=== PATIENT | female | born 1955 | race Two or more races ===

== ENCOUNTER 2017-03-07 21:10 | Inpatient (IN) | payer MEDICARE ==
[2017-03-07 22:06] VITALS: BP 168/85
[2017-03-07] MEDS ORDERED: Maalox 30 mL Cup PO PRN (22:09)
[2017-03-07] MEDS ORDERED: Magnesium Hydroxide (MOM) 30 mL UDC PO PRN (22:09)
[2017-03-07] MEDS: INSULIN ASPART SLIDING SCALE 100 UNITS/ML UNIT SUBQ SCH (22:56)
[2017-03-08] MEDS: INSULIN ASPART SLIDING SCALE 100 UNITS/ML UNIT SUBQ SCH ×4 (06:44→21:36)
[2017-03-08] MEDS: Multivitamin Tab PO SCH (08:33)
[2017-03-08 11:04] LABS: % BASOPHILS 1.3 % (0.0-2.0); % EOSINOPHILS 1.5 % (0.0-5.0); % MONOCYTES 8.3 % (2.0-10.0); % NEUTROPHILS 75.9 % (40.0-80.0); HEMATOCRIT 35.3 % (35.0-45.0); MEAN CELL VOLUME 87.3 fl (81-100); MEAN CORPUSCULAR HEMOGLOBIN 29.8 pg (27.0-31.0); MEAN CORPUSCULAR HGB CONC 34.1 pg (28.0-36.0); MEAN PLATELET VOLUME 5.9 fl; NEUTROPHILE ABSOLUTE 4.1 Th/cmm (1.8-8.0); PLATELET COUNT 242 Th/cmm (150-400); RED BLOOD COUNT 4.04 Mil/cmm (3.80-5.10); RED CELL DISTRIBUTION WIDTH 14.4 % (11.5-20.0); WHITE BLOOD COUNT 5.5 Th/cmm (4.8-10.8)
--- NOTE | 2017-03-08 11:28 | Psychosocial Evaluation ---
DATE OF SERVICE: 03/08/2017 CHIEF COMPLAINT: Refusing to eat or drink. HISTORY OF PRESENT ILLNESS: The patient is a 61-year-old female who lives at home with her mother. The patient has been depressed and has been having thoughts of suicide and was planning to overdose on pills. The patient was seen in [facility] and then transferred to [facility]. Chart reviewed and the patient interviewed and discussed the patient's condition with the staff and reviewed records and labs. The patient said that she has been feeling depressed because of increased pain. The patient has been complaining of severe back pain. She has been taking different pain medications. The patient said that she has been feeling hopeless and helpless. She also has been interacting minimally with others. The patient started to have thoughts of suicide and started to talk about her desire to overdose on pills. PAST PSYCHIATRIC HISTORY: The patient has history of depression and the patient was taking Zoloft. The patient denies any history of psych hospitalization. PAST MEDICAL HISTORY: The patient said that she has chronic back pain. She also has a pacemaker, diabetes mellitus, and traumatic brain injury. CHEMICAL DEPENDENCY HISTORY: The patient denies. FAMILY PSYCHIATRIC HISTORY: The patient denies. ALLERGIES: No known allergies. MENTAL STATUS EXAMINATION: The patient appears her stated age. Anxious. In a depressed mood. Thought processes are circumstantial and tangential, but no flight of ideas. The patient seems to be suspicious and paranoid. The patient is alert and oriented to the situation, place, and person. Intact immediate, recent, and remote memories. Fair insight. Judgment is questionable. She seems to be of average intelligence based on her verbal ability. ASSESSMENT: PRIMARY DIAGNOSIS: Major depression, severe, recurrent, with psychotic features. TREATMENT PLAN: We will monitor the patient's behavior and condition closely. We will start individual, as well as milieu psychotherapy. We will start the patient on Cymbalta and we discontinue Zoloft. Hopefully Cymbalta will help with the pain. Also, we will work on her pain and Dr. Stroud to evaluate her pain condition and her . ESTIMATED LENGTH OF STAY: 7-10 days. THE PATIENT'S STRENGTHS AND WEAKNESSES: The patient's strength is not clear at this time except that she has support from her mother. Weaknesses are her ineffective coping and her severe level of depression. AFTER DISCHARGE PLAN: The patient will return to live with her mother most probably unless some rehabilitation will be needed. Outpatient treatment and followup will continue as an outpatient. CRITERIA FOR DISCHARGE: The patient will not be psychotic or suicidal and will stabilize on psychotropic medications and will establish outpatient treatment plans. JOB# [id number]
[2017-03-08 11:34] LABS: ALB/GLOB RATIO 1.4 (1.0-1.8); ALKALINE PHOSPHATASE 50 U/L (34-104); BILIRUBIN,TOTAL 0.6 mg/dL (0.3-1.0); BUN - UREA NITROGEN 7 mg/dL (7-25); CALCIUM SERUM 9.3 mg/dL (8.6-10.3); CARBON DIOXIDE 24.5 mEq/L (21.0-31.0); CHLORIDE 96 mEq/L (98-107); CREATININE - SERUM 0.7 mg/dL (0.6-1.2); GLUCOSE 157 mg/dL (70-105); POTASSIUM SERUM 3.5 mEq/L (3.5-5.1); SGOT 15 U/L (13-39); SGPT/ALT 15 U/L (7-52); SODIUM SERUM 134 mEq/L (136-145)
--- NOTE | 2017-03-08 16:09 | History & Physical ---
ADMIT DATE: 03/08/2017 HISTORY OF PRESENT ILLNESS: This is a 61-year-old female who was admitted from [facility]. The patient has a past medical history of traumatic brain injury, type 2 diabetes, depression, diabetic neuropathy. The patient was brought here to [facility] for depression. PAST MEDICAL HISTORY: Traumatic brain injury with resultant cognitive decline and memory loss, previous episodes of UTI, diabetes, depression, diabetic neuropathy. SOCIAL HISTORY: Denies any alcohol, tobacco or drugs. FAMILY HISTORY: Noncontributory. ALLERGIES: No drug allergies. MEDICATIONS: Please see medication reconciliation sheet. REVIEW OF SYSTEMS: GENERAL: Denies any fevers or chills. CARDIOVASCULAR: Denies chest pain. RESPIRATORY: Denies any shortness of breath. GASTROINTESTINAL: Denies nausea, vomiting. GENITOURINARY: Denies any dysuria. All other systems are reviewed by me and are negative. PHYSICAL EXAMINATION: GENERAL: The patient is well developed, well nourished, no acute distress. VITAL SIGNS: Temperature 99.0, heart rate ____, blood pressure, 101/66, respirations 20, O2 97%. HEENT: Head; normocephalic, atraumatic. NECK: Supple. No mass. LUNGS: Clear bilaterally. HEART: Regular rhythm. ABDOMEN: Soft and nontender. ASSESSMENT: 1. Psychosis. 2. History of traumatic brain injury. 3. Diabetes. 4. Depression. 5. Diabetic neuropathy. PLAN: We will do Accu-Cheks a.c. and at bedtime. We will monitor the patient's glucose level. We will continue to monitor the patient. JOB# [id number]
[2017-03-09] MEDS: INSULIN ASPART SLIDING SCALE 100 UNITS/ML UNIT SUBQ SCH ×4 (06:31→20:36)
[2017-03-09] MEDS: Pantoprazole 40 mg EC Tab PO SCH (06:45)
--- NOTE | 2017-03-09 08:18 | Diagnostic Imaging Report ---
Portable chest x-ray HISTORY: Cough The overall heart size is normal. Cardiac pacemaker lead wires project over the right atrium and right ventricle. No focal pulmonary processes. Surgical hardware is seen within the thoracic spine. There are changes suggesting free air beneath the diaphragm. Clinical correlation is needed. If symptomatic, a CT scan would provide additional assessment and evaluation. There appears to be residual contrast within nondilated large bowel. Surgical clips are seen in the right upper quadrant of the abdomen consistent with prior cholecystectomy. IMPRESSION: 1. Question free intraperitoneal/subdiaphragmatic air. In the absence of recent surgery and presence of abdominal symptoms, a CT scan would provide additional assessment. 2. No focal pulmonary processes 3. Cardiac pacemaker placement 4. Surgical changes as noted above Abnormal findings were communicated to the radiology department 03/09/2017 (8:10 AM).
--- NOTE | 2017-03-09 08:28 | General Progress Note ---
Subjective - Review of Systems Events since last encounter: no distress Objective - Results Result Diagrams: 03/08/17 11:00 03/08/17 11:00 Recent Labs: Laboratory Last Values WBC 5.5 Th/cmm (4.8-10.8) 03/08/17 11:00 RBC 4.04 Mil/cmm (3.80-5.10) 03/08/17 11:00 Hgb 12.0 gm/dL (11.7-15.5) 03/08/17 11:00 Hct 35.3 % (35.0-45.0) 03/08/17 11:00 MCV 87.3 fl (81-100) 03/08/17 11:00 MCH 29.8 pg (27.0-31.0) 03/08/17 11:00 MCHC Differential 34.1 pg (28.0-36.0) 03/08/17 11:00 RDW 14.4 % (11.5-20.0) 03/08/17 11:00 Plt Count 242 Th/cmm (150-400) 03/08/17 11:00 MPV 5.9 fl 03/08/17 11:00 Neutrophils % 75.9 % (40.0-80.0) 03/08/17 11:00 Lymphocytes % 13.0 % (20.0-50.0) L 03/08/17 11:00 Monocytes % 8.3 % (2.0-10.0) 03/08/17 11:00 Eosinophils % 1.5 % (0.0-5.0) 03/08/17 11:00 Basophils % 1.3 % (0.0-2.0) 03/08/17 11:00 Sodium 134 mEq/L (136-145) L 03/08/17 11:00 Potassium 3.5 mEq/L (3.5-5.1) 03/08/17 11:00 Chloride 96 mEq/L (98-107) L 03/08/17 11:00 Carbon Dioxide 24.5 mEq/L (21.0-31.0) 03/08/17 11:00 Anion Gap 17.0 (7.0-16.0) H 03/08/17 11:00 BUN 7 mg/dL (7-25) 03/08/17 11:00 Creatinine 0.7 mg/dL (0.6-1.2) 03/08/17 11:00 Est GFR ( Amer) > 60.0 ml/min (>90) 03/08/17 11:00 Est GFR (Non-Af Amer) > 60.0 ml/min 03/08/17 11:00 BUN/Creatinine Ratio 10.0 03/08/17 11:00 Glucose 157 mg/dL (70-105) H 03/08/17 11:00 POC Glucose 114 MG/DL (70 - 105) H 03/09/17 06:21 Calcium 9.3 mg/dL (8.6-10.3) 03/08/17 11:00 Total Bilirubin 0.6 mg/dL (0.3-1.0) 03/08/17 11:00 AST 15 U/L (13-39) 03/08/17 11:00 ALT 15 U/L (7-52) 03/08/17 11:00 Alkaline Phosphatase 50 U/L (34-104) 03/08/17 11:00 Total Protein 5.9 gm/dL (6.0-8.3) L 03/08/17 11:00 Albumin 3.4 gm/dL (3.7-5.3) L 03/08/17 11:00 Globulin 2.5 gm/dL 03/08/17 11:00 Albumin/Globulin Ratio 1.4 (1.0-1.8) 03/08/17 11:00 - Physical Exam Vitals and I&O: Vital Signs Temp 98.3 F 03/09/17 07:04 Pulse 60 03/09/17 07:04 Resp 18 03/09/17 07:04 BP 101/56 03/09/17 07:04 Pulse Ox 97 03/09/17 07:04 Intake & Output 03/08/17 03/09/17 03/09/17 18:59 06:59 18:59 Intake Total 720 120 0 Balance 720 120 0 Intake: Oral 720 120 0 Other: # Voids 4 3 3 # Bowel Movements 0 0 0 Active Medications: Current Medications Acetaminophen (Tylenol) 650 mg PO Q4HR PRN PRN Reason: Mild Pain / Temp above 100 Stop: 05/06/17 22:08 Al Hydrox/Mg Hydrox/Simethicone (Maalox) 30 ml PO Q4HR PRN PRN Reason: GI DISTRESS Stop: 05/06/17 22:08 Carvedilol (Coreg) 12.5 mg PO BID DEVAUGHN Stop: 05/07/17 16:59 Last Admin: 03/08/17 16:30 Dose: 12.5 mg Duloxetine HCl (Cymbalta) 30 mg PO DAILY [facility] PRN Reason: Protocol Stop: 05/07/17 08:59 Last Admin: 03/08/17 15:54 Dose: Not Given Enoxaparin Sodium (Lovenox) 40 mg SUBQ DAILY [facility] Stop: 05/08/17 16:59 Ergocalciferol (Vitamin D) 50,000 iu PO We DEVAUGHN Stop: 05/08/17 09:59 Gabapentin (Neurontin) 800 mg PO TID [facility]N Stop: 05/07/17 20:59 Last Admin: 03/08/17 21:35 Dose: Not Given Insulin Aspart (Novolog Insulin Sliding Scale) 0 units SUBQ ACHS [facility]AUGHN PRN Reason: Protocol Stop: 05/06/17 22:15 Last Admin: 03/09/17 06:31 Dose: Not Given Lorazepam (Ativan) 0.5 mg PO Q4HR PRN; Protocol PRN Reason: Anxiety Stop: 04/06/17 22:08 Last Admin: 03/08/17 08:33 Dose: 0.5 mg Magnesium Hydroxide (Milk Of Magnesia) 30 ml PO HS PRN PRN Reason: Constipation Mirtazapine (Remeron) 15 mg PO HS [facility]N PRN Reason: Protocol Stop: 05/07/17 20:59 Last Admin: 03/08/17 21:35 Dose: Not Given Multivitamins/Vitamin C (Theragran) 1 tab PO DAILY DEVAUGHN Stop: 05/07/17 08:59 Last Admin: 03/08/17 08:33 Dose: 1 tab Pantoprazole Sodium (Protonix) 40 mg PO QDAC [facility]N Stop: 05/08/17 07:29 Last Admin: 03/09/17 06:45 Dose: Not Given Quetiapine Fumarate (Seroquel) 25 mg PO HS DEVAUGHN PRN Reason: Protocol Stop: 05/07/17 20:59 Last Admin: 03/08/17 21:36 Dose: Not Given Sertraline HCl (Zoloft) 25 mg PO DAILY [facility]AUGHN PRN Reason: Protocol Stop: 05/08/17 08:59 Tramadol HCl (Ultram) 50 mg PO Q6HR PRN PRN Reason: Moderate pain Stop: 05/06/17 22:24 Last Admin: 03/08/17 08:33 Dose: 50 mg Tramadol HCl (Ultram) 50 mg PO Q4H PRN PRN Reason: Pain (Moderate) Stop: 05/07/17 15:17 Last Admin: 03/08/17 16:36 Dose: 50 mg Trazodone HCl (Desyrel) 100 mg PO HS DEVAUGHN Stop: 05/07/17 20:59 Last Admin: 03/08/17 21:35 Dose: Not Given Zolpidem Tartrate (Ambien) 5 mg PO HS PRN PRN Reason: Insomnia Stop: 05/06/17 22:08
[2017-03-09] MEDS: Multivitamin Tab PO SCH (09:26)
--- NOTE | 2017-03-09 10:16 | Progress Notes ---
DATE: 03/09/2017 SUBJECTIVE: Chart reviewed and the patient interviewed. Also discussed the patient's condition with the staff and reviewed records and labs. The patient is selectively mute and she is withdrawn and guarded. The patient also is not answering much of the questions and she is still severely depressed. The patient also is reporting to staff her desire to . She is withdrawn and she is feeling hopeless. Otherwise, the patient tends to isolate herself. ASSESSMENT: The patient is still depressed and is still high risk suicide. TREATMENT PLAN: We will continue monitoring her behavior and her condition closely. Also, yesterday, the patient started on Cymbalta 30 mg every day. We will continue same dose and we will continue to work on her ineffective coping and followup. [facility]# [id number]
--- NOTE | 2017-03-09 16:14 | Consultation ---
DATE OF CONSULTATION: 03/09/2017 REFERRING PHYSICIAN: Dr. Stroud. REASON FOR CONSULTATION: Abnormal chest x-ray. Thank you for referring this patient to me. HISTORY OF PRESENT ILLNESS: This is a 61-year-old female admitted from [facility] for depression and suicidal ideation. The patient has had traumatic brain injury. Additional comorbidities include UTI, diabetes, depression, diabetic nephropathy, pacemaker placement. LABORATORY STUDIES: CBC and chemistry are normal. Chest x-ray showed subdiaphragmatic air. This is minimal amount. PHYSICAL EXAMINATION: GENERAL: The patient is awake, but poorly cooperative. ABDOMEN: Flat and soft. There is minimal tenderness present. There are scars from what appears to be a recent laparoscopic cholecystectomy. The records of transfer from [facility]; however, is complete and we will call the hospital to furnish , documentation that, some operation was done on this patient in the last couple of weeks. Four healing trocar holes are noted in the right upper quadrant. JOB# [id number] [facility]ITAL[facility]
[2017-03-09] MEDS: Enoxaparin 40 mg/0.4 mL 0.4mL Syr SUBQ SCH (16:39)
--- NOTE | 2017-03-10 05:04 | Admit Criteria Form ---
Admit Criteria Forms - Admit Criteria Diagnosis: PSYCHIATRIC DISORDERS (Place 'X' for any and all applicable criteria): Ongoing inpatient care may be needed for 1 or more of the following(1)(2)(3)(4)( 6)(7)(8): [ ]I. Danger to self or others not manageable at lower level of care. [ ]II. Grave disability (eg, inability to perform self care necessary at lower level of care) [ ]III. Agitation or inappropriate behavior interfering with care for primary condition (eg, attempting to discontinue lines or drains prematurely, unable to cooperate with respiratory care) [X ]IV. Severe disability or disorder indicated by ALL of the following: [X ]a) Severe behavioral health disorder-related symptoms or condition indicated by 1 or more of the following: [ ]i) Severe problem with cognition, memory, judgment, or impulse control [X ]ii) Severe clinical manifestations (eg, hallucinations , delusions, other acute psychotic symptoms, mirna, extreme agitation or anxiety) [X ]b) Patient management at lower level of care is not feasible until acute intervention or modification is initiated. Extended stay beyond goal length of stay for the primary condition may be needed until ALLof the following are present(1)(2)(3)(4)(7)48)(23): [ ]a) Danger to self or others is absent or manageable at lower level of care [ ]b) Behavior crisis management, including physical or chemical restraints, is required and is not available at a lower level of care. [ ]c) Behavioral symptoms (e.g., agitation, somnolence, inappropriate behavior) are present, and are not manageable at a lower level of care. [ ]d) Patient cannot understand follow-up treatment and crisis plan. [ ]e) Provider and supports are sufficiently available at lower level of care. [ ]f) Patient can participate (e.g., verify absence of plan for harm) and is in needed of monitoring. The original [facility] content created by [facility] has been revised. The portions of the content which have been revised are identified through the use of italic text or in bold, and [facility] has neither reviewed nor approved the modified material. All other unmodified content is copyright [facility]. Please see references footnoted in the original [facility] edition 2017 Admit Criteria Met?: Yes
[2017-03-10] MEDS: INSULIN ASPART SLIDING SCALE 100 UNITS/ML UNIT SUBQ SCH ×4 (06:33→20:25)
[2017-03-10] MEDS: Pantoprazole 40 mg EC Tab PO SCH (06:46)
--- NOTE | 2017-03-10 08:03 | General Progress Note ---
Subjective - Review of Systems Events since last encounter: patient admitted with depression with si awake ,alert Objective - Results Result Diagrams: 03/08/17 11:00 03/08/17 11:00 Recent Labs: Laboratory Last Values WBC 5.5 Th/cmm (4.8-10.8) 03/08/17 11:00 RBC 4.04 Mil/cmm (3.80-5.10) 03/08/17 11:00 Hgb 12.0 gm/dL (11.7-15.5) 03/08/17 11:00 Hct 35.3 % (35.0-45.0) 03/08/17 11:00 MCV 87.3 fl (81-100) 03/08/17 11:00 MCH 29.8 pg (27.0-31.0) 03/08/17 11:00 MCHC Differential 34.1 pg (28.0-36.0) 03/08/17 11:00 RDW 14.4 % (11.5-20.0) 03/08/17 11:00 Plt Count 242 Th/cmm (150-400) 03/08/17 11:00 MPV 5.9 fl 03/08/17 11:00 Neutrophils % 75.9 % (40.0-80.0) 03/08/17 11:00 Lymphocytes % 13.0 % (20.0-50.0) L 03/08/17 11:00 Monocytes % 8.3 % (2.0-10.0) 03/08/17 11:00 Eosinophils % 1.5 % (0.0-5.0) 03/08/17 11:00 Basophils % 1.3 % (0.0-2.0) 03/08/17 11:00 Sodium 134 mEq/L (136-145) L 03/08/17 11:00 Potassium 3.5 mEq/L (3.5-5.1) 03/08/17 11:00 Chloride 96 mEq/L (98-107) L 03/08/17 11:00 Carbon Dioxide 24.5 mEq/L (21.0-31.0) 03/08/17 11:00 Anion Gap 17.0 (7.0-16.0) H 03/08/17 11:00 BUN 7 mg/dL (7-25) 03/08/17 11:00 Creatinine 0.7 mg/dL (0.6-1.2) 03/08/17 11:00 Est GFR ( Amer) > 60.0 ml/min (>90) 03/08/17 11:00 Est GFR (Non-Af Amer) > 60.0 ml/min 03/08/17 11:00 BUN/Creatinine Ratio 10.0 03/08/17 11:00 Glucose 157 mg/dL (70-105) H 03/08/17 11:00 POC Glucose 104 MG/DL (70 - 105) 03/10/17 06:05 Calcium 9.3 mg/dL (8.6-10.3) 03/08/17 11:00 Total Bilirubin 0.6 mg/dL (0.3-1.0) 03/08/17 11:00 AST 15 U/L (13-39) 03/08/17 11:00 ALT 15 U/L (7-52) 03/08/17 11:00 Alkaline Phosphatase 50 U/L (34-104) 03/08/17 11:00 Total Protein 5.9 gm/dL (6.0-8.3) L 03/08/17 11:00 Albumin 3.4 gm/dL (3.7-5.3) L 03/08/17 11:00 Globulin 2.5 gm/dL 03/08/17 11:00 Albumin/Globulin Ratio 1.4 (1.0-1.8) 03/08/17 11:00 - Physical Exam Vitals and I&O: Vital Signs Temp 98 F 03/09/17 20:00 Pulse 50 03/09/17 20:00 Resp 18 03/09/17 20:00 BP 138/77 03/09/17 20:00 Pulse Ox 98 03/09/17 20:00 Intake & Output 03/09/17 03/10/17 03/10/17 18:59 06:59 18:59 Intake Total 800 Balance 800 Intake: Oral 800 Other: # Voids 3 # Bowel Movements 0 Active Medications: Current Medications Acetaminophen (Tylenol) 650 mg PO Q4HR PRN PRN Reason: Mild Pain / Temp above 100 Stop: 05/06/17 22:08 Last Admin: 03/09/17 21:15 Dose: 650 mg Al Hydrox/Mg Hydrox/Simethicone (Maalox) 30 ml PO Q4HR PRN PRN Reason: GI DISTRESS Stop: 05/06/17 22:08 Carvedilol (Coreg) 12.5 mg PO BID [facility] Stop: 05/07/17 16:59 Last Admin: 03/09/17 16:41 Dose: 12.5 mg Duloxetine HCl (Cymbalta) 60 mg PO DAILY DEVAUGHN PRN Reason: Protocol Stop: 05/07/17 08:59 Enoxaparin Sodium (Lovenox) 40 mg SUBQ DAILY DEVAUGHN Stop: 05/08/17 16:59 Last Admin: 03/09/17 16:39 Dose: 40 mg Ergocalciferol (Vitamin D) 50,000 iu PO We [facility] Stop: 05/08/17 09:59 Last Admin: 03/09/17 09:27 Dose: Not Given Gabapentin (Neurontin) 800 mg PO TID DEVAUGHN Stop: 05/07/17 20:59 Last Admin: 03/09/17 21:16 Dose: 800 mg Insulin Aspart (Novolog Insulin Sliding Scale) 0 units SUBQ ACHS DEVAUGHN PRN Reason: Protocol Stop: 05/06/17 22:15 Last Admin: 03/10/17 06:33 Dose: Not Given Lorazepam (Ativan) 0.5 mg PO Q4HR PRN; Protocol PRN Reason: Anxiety Stop: 04/06/17 22:08 Last Admin: 03/08/17 08:33 Dose: 0.5 mg Magnesium Hydroxide (Milk Of Magnesia) 30 ml PO HS PRN PRN Reason: Constipation Mirtazapine (Remeron) 15 mg PO HS [facility]AUGHN PRN Reason: Protocol Stop: 05/07/17 20:59 Last Admin: 03/09/17 21:16 Dose: 15 mg Multivitamins/Vitamin C (Theragran) 1 tab PO DAILY DEVAUGHN Stop: 05/07/17 08:59 Last Admin: 03/09/17 09:26 Dose: Not Given Pantoprazole Sodium (Protonix) 40 mg PO QDAC [facility] Stop: 05/08/17 07:29 Last Admin: 03/10/17 06:46 Dose: 40 mg Tramadol HCl (Ultram) 50 mg PO Q6HR PRN PRN Reason: Moderate pain Stop: 05/06/17 22:24 Last Admin: 03/09/17 17:34 Dose: 50 mg Tramadol HCl (Ultram) 50 mg PO Q4H PRN PRN Reason: Pain (Moderate) Stop: 05/07/17 15:17 Last Admin: 03/10/17 00:14 Dose: 50 mg Trazodone HCl (Desyrel) 100 mg PO HS [facility]AUGHN Stop: 05/07/17 20:59 Last Admin: 03/09/17 21:17 Dose: 100 mg Zolpidem Tartrate (Ambien) 5 mg PO HS PRN PRN Reason: Insomnia Stop: 05/06/17 22:08 General: No acute distress HEENT: Atraumatic Cardiovascular: Regular rate, Normal S1, Normal S2 Assessment/Plan - Plan Plan: as per psych will monitor cpm
[2017-03-10] MEDS: Multivitamin Tab PO SCH (09:58)
[2017-03-10] MEDS: Enoxaparin 40 mg/0.4 mL 0.4mL Syr SUBQ SCH (10:00)
--- NOTE | 2017-03-10 11:19 | Progress Notes ---
DATE: 03/10/2017 SUBJECTIVE: Chart reviewed and the patient interviewed. Also discussed the patient's condition with the staff and reviewed records and labs. The patient is still guarded and she is still in a depressed mood. The patient also is interacting minimally with peers and with others. The patient also still wants to be left alone and still feels hopeless and helpless. She also isolative and interacting minimally guarded. Otherwise, the patient continued to take Cymbalta with no side effects of Cymbalta. ASSESSMENT: The patient is still depressed and high risk suicide. TREATMENT PLAN: We will continue monitoring her behavior and her condition closely. Also, we will increase Cymbalta to 60 mg everyday and we will continue to follow up closely. Also, will work with family service caseworker in regard to any possibility of placement after her discharge. Also, we will work on her ineffective coping and her poor coping skills. JOB# [id number]
[2017-03-11] MEDS: INSULIN ASPART SLIDING SCALE 100 UNITS/ML UNIT SUBQ SCH ×4 (06:37→20:57)
[2017-03-11] MEDS: Pantoprazole 40 mg EC Tab PO SCH (07:04)
--- NOTE | 2017-03-11 07:55 | General Progress Note ---
Subjective - Review of Systems Service Date: 03/11/17 Events since last encounter: patient did undergo lap cholecystectomy several days ago Objective - Results Result Diagrams: 03/08/17 11:00 03/08/17 11:00 Recent Labs: Laboratory Last Values WBC 5.5 Th/cmm (4.8-10.8) 03/08/17 11:00 RBC 4.04 Mil/cmm (3.80-5.10) 03/08/17 11:00 Hgb 12.0 gm/dL (11.7-15.5) 03/08/17 11:00 Hct 35.3 % (35.0-45.0) 03/08/17 11:00 MCV 87.3 fl (81-100) 03/08/17 11:00 MCH 29.8 pg (27.0-31.0) 03/08/17 11:00 MCHC Differential 34.1 pg (28.0-36.0) 03/08/17 11:00 RDW 14.4 % (11.5-20.0) 03/08/17 11:00 Plt Count 242 Th/cmm (150-400) 03/08/17 11:00 MPV 5.9 fl 03/08/17 11:00 Neutrophils % 75.9 % (40.0-80.0) 03/08/17 11:00 Lymphocytes % 13.0 % (20.0-50.0) L 03/08/17 11:00 Monocytes % 8.3 % (2.0-10.0) 03/08/17 11:00 Eosinophils % 1.5 % (0.0-5.0) 03/08/17 11:00 Basophils % 1.3 % (0.0-2.0) 03/08/17 11:00 Sodium 134 mEq/L (136-145) L 03/08/17 11:00 Potassium 3.5 mEq/L (3.5-5.1) 03/08/17 11:00 Chloride 96 mEq/L (98-107) L 03/08/17 11:00 Carbon Dioxide 24.5 mEq/L (21.0-31.0) 03/08/17 11:00 Anion Gap 17.0 (7.0-16.0) H 03/08/17 11:00 BUN 7 mg/dL (7-25) 03/08/17 11:00 Creatinine 0.7 mg/dL (0.6-1.2) 03/08/17 11:00 Est GFR ( Amer) > 60.0 ml/min (>90) 03/08/17 11:00 Est GFR (Non-Af Amer) > 60.0 ml/min 03/08/17 11:00 BUN/Creatinine Ratio 10.0 03/08/17 11:00 Glucose 157 mg/dL (70-105) H 03/08/17 11:00 POC Glucose 104 MG/DL (70 - 105) 03/10/17 06:05 Calcium 9.3 mg/dL (8.6-10.3) 03/08/17 11:00 Total Bilirubin 0.6 mg/dL (0.3-1.0) 03/08/17 11:00 AST 15 U/L (13-39) 03/08/17 11:00 ALT 15 U/L (7-52) 03/08/17 11:00 Alkaline Phosphatase 50 U/L (34-104) 03/08/17 11:00 Total Protein 5.9 gm/dL (6.0-8.3) L 03/08/17 11:00 Albumin 3.4 gm/dL (3.7-5.3) L 03/08/17 11:00 Globulin 2.5 gm/dL 03/08/17 11:00 Albumin/Globulin Ratio 1.4 (1.0-1.8) 03/08/17 11:00 - Physical Exam Vitals and I&O: Vital Signs Temp 97.4 F 03/11/17 06:47 Pulse 60 03/11/17 06:47 Resp 18 03/11/17 06:47 BP 112/69 03/11/17 06:47 Pulse Ox 98 03/11/17 06:47 Intake & Output 03/10/17 03/11/17 03/11/17 18:59 06:59 18:59 Intake Total 0 120 Balance 0 120 Intake: Oral 0 120 Other: # Voids 1 3 Active Medications: Current Medications Acetaminophen (Tylenol) 650 mg PO Q4HR PRN PRN Reason: Mild Pain / Temp above 100 Stop: 05/06/17 22:08 Last Admin: 03/09/17 21:15 Dose: 650 mg Al Hydrox/Mg Hydrox/Simethicone (Maalox) 30 ml PO Q4HR PRN PRN Reason: GI DISTRESS Stop: 05/06/17 22:08 Carvedilol (Coreg) 12.5 mg PO BID [facility] Stop: 05/07/17 16:59 Last Admin: 03/10/17 16:42 Dose: Not Given Duloxetine HCl (Cymbalta) 60 mg PO DAILY [facility] PRN Reason: Protocol Stop: 05/07/17 08:59 Last Admin: 03/10/17 09:58 Dose: Not Given Enoxaparin Sodium (Lovenox) 40 mg SUBQ DAILY [facility] Stop: 05/08/17 16:59 Last Admin: 03/10/17 10:00 Dose: Not Given Ergocalciferol (Vitamin D) 50,000 iu PO We [facility] Stop: 05/08/17 09:59 Last Admin: 03/09/17 09:27 Dose: Not Given Gabapentin (Neurontin) 800 mg PO TID [facility] Stop: 05/07/17 20:59 Last Admin: 03/10/17 20:50 Dose: 800 mg Insulin Aspart (Novolog Insulin Sliding Scale) 0 units SUBQ ACHS [facility] PRN Reason: Protocol Stop: 05/06/17 22:15 Last Admin: 03/11/17 06:37 Dose: Not Given Lorazepam (Ativan) 0.5 mg PO Q4HR PRN; Protocol PRN Reason: Anxiety Stop: 04/06/17 22:08 Last Admin: 03/08/17 08:33 Dose: 0.5 mg Magnesium Hydroxide (Milk Of Magnesia) 30 ml PO HS PRN PRN Reason: Constipation Mirtazapine (Remeron) 15 mg PO HS [facility] PRN Reason: Protocol Stop: 05/07/17 20:59 Last Admin: 03/10/17 20:50 Dose: 15 mg Multivitamins/Vitamin C (Theragran) 1 tab PO DAILY [facility] Stop: 05/07/17 08:59 Last Admin: 03/10/17 09:58 Dose: Not Given Pantoprazole Sodium (Protonix) 40 mg PO QDAC [facility] Stop: 05/08/17 07:29 Last Admin: 03/11/17 07:04 Dose: 40 mg Tramadol HCl (Ultram) 50 mg PO Q4H PRN PRN Reason: Pain (Moderate) Stop: 05/07/17 15:17 Last Admin: 03/11/17 03:39 Dose: 50 mg Trazodone HCl (Desyrel) 100 mg PO HS [facility] Stop: 05/07/17 20:59 Last Admin: 03/10/17 20:49 Dose: 100 mg Zolpidem Tartrate (Ambien) 5 mg PO HS PRN PRN Reason: Insomnia Stop: 05/06/17 22:08 Last Admin: 03/10/17 20:50 Dose: 5 mg General: No acute distress HEENT: Atraumatic Cardiovascular: Regular rate, Normal S1, Normal S2
--- NOTE | 2017-03-11 08:52 | General Progress Note ---
Subjective - Review of Systems Events since last encounter: patient awake ,alert Objective - Results Result Diagrams: 03/08/17 11:00 03/08/17 11:00 Recent Labs: Laboratory Last Values WBC 5.5 Th/cmm (4.8-10.8) 03/08/17 11:00 RBC 4.04 Mil/cmm (3.80-5.10) 03/08/17 11:00 Hgb 12.0 gm/dL (11.7-15.5) 03/08/17 11:00 Hct 35.3 % (35.0-45.0) 03/08/17 11:00 MCV 87.3 fl (81-100) 03/08/17 11:00 MCH 29.8 pg (27.0-31.0) 03/08/17 11:00 MCHC Differential 34.1 pg (28.0-36.0) 03/08/17 11:00 RDW 14.4 % (11.5-20.0) 03/08/17 11:00 Plt Count 242 Th/cmm (150-400) 03/08/17 11:00 MPV 5.9 fl 03/08/17 11:00 Neutrophils % 75.9 % (40.0-80.0) 03/08/17 11:00 Lymphocytes % 13.0 % (20.0-50.0) L 03/08/17 11:00 Monocytes % 8.3 % (2.0-10.0) 03/08/17 11:00 Eosinophils % 1.5 % (0.0-5.0) 03/08/17 11:00 Basophils % 1.3 % (0.0-2.0) 03/08/17 11:00 Sodium 134 mEq/L (136-145) L 03/08/17 11:00 Potassium 3.5 mEq/L (3.5-5.1) 03/08/17 11:00 Chloride 96 mEq/L (98-107) L 03/08/17 11:00 Carbon Dioxide 24.5 mEq/L (21.0-31.0) 03/08/17 11:00 Anion Gap 17.0 (7.0-16.0) H 03/08/17 11:00 BUN 7 mg/dL (7-25) 03/08/17 11:00 Creatinine 0.7 mg/dL (0.6-1.2) 03/08/17 11:00 Est GFR ( Amer) > 60.0 ml/min (>90) 03/08/17 11:00 Est GFR (Non-Af Amer) > 60.0 ml/min 03/08/17 11:00 BUN/Creatinine Ratio 10.0 03/08/17 11:00 Glucose 157 mg/dL (70-105) H 03/08/17 11:00 POC Glucose 104 MG/DL (70 - 105) 03/10/17 06:05 Calcium 9.3 mg/dL (8.6-10.3) 03/08/17 11:00 Total Bilirubin 0.6 mg/dL (0.3-1.0) 03/08/17 11:00 AST 15 U/L (13-39) 03/08/17 11:00 ALT 15 U/L (7-52) 03/08/17 11:00 Alkaline Phosphatase 50 U/L (34-104) 03/08/17 11:00 Total Protein 5.9 gm/dL (6.0-8.3) L 03/08/17 11:00 Albumin 3.4 gm/dL (3.7-5.3) L 03/08/17 11:00 Globulin 2.5 gm/dL 03/08/17 11:00 Albumin/Globulin Ratio 1.4 (1.0-1.8) 03/08/17 11:00 - Physical Exam Vitals and I&O: Vital Signs Temp 97.4 F 03/11/17 06:47 Pulse 60 03/11/17 06:47 Resp 18 03/11/17 06:47 BP 112/69 03/11/17 06:47 Pulse Ox 98 03/11/17 06:47 Intake & Output 03/10/17 03/11/17 03/11/17 18:59 06:59 18:59 Intake Total 0 120 Balance 0 120 Intake: Oral 0 120 Other: # Voids 1 3 Active Medications: Current Medications Acetaminophen (Tylenol) 650 mg PO Q4HR PRN PRN Reason: Mild Pain / Temp above 100 Stop: 05/06/17 22:08 Last Admin: 03/09/17 21:15 Dose: 650 mg Al Hydrox/Mg Hydrox/Simethicone (Maalox) 30 ml PO Q4HR PRN PRN Reason: GI DISTRESS Stop: 05/06/17 22:08 Carvedilol (Coreg) 12.5 mg PO BID [facility] Stop: 05/07/17 16:59 Last Admin: 03/10/17 16:42 Dose: Not Given Duloxetine HCl (Cymbalta) 60 mg PO DAILY [facility] PRN Reason: Protocol Stop: 05/07/17 08:59 Last Admin: 03/10/17 09:58 Dose: Not Given Enoxaparin Sodium (Lovenox) 40 mg SUBQ DAILY [facility] Stop: 05/08/17 16:59 Last Admin: 03/10/17 10:00 Dose: Not Given Ergocalciferol (Vitamin D) 50,000 iu PO We [facility] Stop: 05/08/17 09:59 Last Admin: 03/09/17 09:27 Dose: Not Given Gabapentin (Neurontin) 800 mg PO TID [facility] Stop: 05/07/17 20:59 Last Admin: 03/10/17 20:50 Dose: 800 mg Insulin Aspart (Novolog Insulin Sliding Scale) 0 units SUBQ ACHS [facility] PRN Reason: Protocol Stop: 05/06/17 22:15 Last Admin: 03/11/17 06:37 Dose: Not Given Lorazepam (Ativan) 0.5 mg PO Q4HR PRN; Protocol PRN Reason: Anxiety Stop: 04/06/17 22:08 Last Admin: 03/08/17 08:33 Dose: 0.5 mg Magnesium Hydroxide (Milk Of Magnesia) 30 ml PO HS PRN PRN Reason: Constipation Mirtazapine (Remeron) 15 mg PO HS [facility] PRN Reason: Protocol Stop: 05/07/17 20:59 Last Admin: 03/10/17 20:50 Dose: 15 mg Multivitamins/Vitamin C (Theragran) 1 tab PO DAILY [facility] Stop: 05/07/17 08:59 Last Admin: 03/10/17 09:58 Dose: Not Given Pantoprazole Sodium (Protonix) 40 mg PO QDAC [facility] Stop: 05/08/17 07:29 Last Admin: 03/11/17 07:04 Dose: 40 mg Tramadol HCl (Ultram) 50 mg PO Q4H PRN PRN Reason: Pain (Moderate) Stop: 05/07/17 15:17 Last Admin: 08/18/17 03:39 Dose: 50 mg Trazodone HCl (Desyrel) 100 mg PO HS [facility] Stop: 05/07/17 20:59 Last Admin: 03/10/17 20:49 Dose: 100 mg Zolpidem Tartrate (Ambien) 5 mg PO HS PRN PRN Reason: Insomnia Stop: 05/06/17 22:08 Last Admin: 03/10/17 20:50 Dose: 5 mg General: No acute distress HEENT: Atraumatic Cardiovascular: Regular rate, Normal S1, Normal S2 Assessment/Plan - Plan Plan: as per psych will monitor cpm
[2017-03-11] MEDS: Enoxaparin 40 mg/0.4 mL 0.4mL Syr SUBQ SCH (11:06)
[2017-03-11] MEDS: Multivitamin Tab PO SCH (11:07)
--- NOTE | 2017-03-11 12:14 | Progress Notes ---
DATE: 03/11/2017 SUBJECTIVE: Chart reviewed and the patient interviewed. Also discussed the patient's condition with the staff and reviewed records and labs. "The food has no taste." The patient remains severely depressed, anxious, and withdrawn. The patient also is interacting minimally with peers and with others. Also, the patient's appetite is poor. She also is still feeling hopeless and helpless. She also is complaining of lack of energy and lack of motivation. ASSESSMENT: The patient is still severely depressed and high risk suicide. TREATMENT PLAN: We will continue monitoring her behavior and her condition closely. Also, we will increase Cymbalta to 90 mg every day. Also, we will work on behavioral modification and also her lack of support . JOB# [id number]
[2017-03-12] MEDS: Pantoprazole 40 mg EC Tab PO SCH (06:44)
[2017-03-12] MEDS: INSULIN ASPART SLIDING SCALE 100 UNITS/ML UNIT SUBQ SCH ×4 (06:45→21:43)
[2017-03-12] MEDS: Multivitamin Tab PO SCH ×2 (09:45→10:01)
[2017-03-12] MEDS: Enoxaparin 40 mg/0.4 mL 0.4mL Syr SUBQ SCH ×2 (09:47→10:00)
--- NOTE | 2017-03-12 11:40 | General Progress Note ---
Subjective - Review of Systems Events since last encounter: patient continues to be depressed with si denies cp, sob Objective - Results Result Diagrams: 03/08/17 11:00 03/08/17 11:00 Recent Labs: Laboratory Last Values WBC 5.5 Th/cmm (4.8-10.8) 03/08/17 11:00 RBC 4.04 Mil/cmm (3.80-5.10) 03/08/17 11:00 Hgb 12.0 gm/dL (11.7-15.5) 03/08/17 11:00 Hct 35.3 % (35.0-45.0) 03/08/17 11:00 MCV 87.3 fl (81-100) 03/08/17 11:00 MCH 29.8 pg (27.0-31.0) 03/08/17 11:00 MCHC Differential 34.1 pg (28.0-36.0) 03/08/17 11:00 RDW 14.4 % (11.5-20.0) 03/08/17 11:00 Plt Count 242 Th/cmm (150-400) 03/08/17 11:00 MPV 5.9 fl 03/08/17 11:00 Neutrophils % 75.9 % (40.0-80.0) 03/08/17 11:00 Lymphocytes % 13.0 % (20.0-50.0) L 03/08/17 11:00 Monocytes % 8.3 % (2.0-10.0) 03/08/17 11:00 Eosinophils % 1.5 % (0.0-5.0) 03/08/17 11:00 Basophils % 1.3 % (0.0-2.0) 03/08/17 11:00 Sodium 134 mEq/L (136-145) L 03/08/17 11:00 Potassium 3.5 mEq/L (3.5-5.1) 03/08/17 11:00 Chloride 96 mEq/L (98-107) L 03/08/17 11:00 Carbon Dioxide 24.5 mEq/L (21.0-31.0) 03/08/17 11:00 Anion Gap 17.0 (7.0-16.0) H 03/08/17 11:00 BUN 7 mg/dL (7-25) 03/08/17 11:00 Creatinine 0.7 mg/dL (0.6-1.2) 03/08/17 11:00 Est GFR ( Amer) > 60.0 ml/min (>90) 03/08/17 11:00 Est GFR (Non-Af Amer) > 60.0 ml/min 03/08/17 11:00 BUN/Creatinine Ratio 10.0 03/08/17 11:00 Glucose 157 mg/dL (70-105) H 03/08/17 11:00 POC Glucose 104 MG/DL (70 - 105) 03/10/17 06:05 Calcium 9.3 mg/dL (8.6-10.3) 03/08/17 11:00 Total Bilirubin 0.6 mg/dL (0.3-1.0) 03/08/17 11:00 AST 15 U/L (13-39) 03/08/17 11:00 ALT 15 U/L (7-52) 03/08/17 11:00 Alkaline Phosphatase 50 U/L (34-104) 03/08/17 11:00 Total Protein 5.9 gm/dL (6.0-8.3) L 03/08/17 11:00 Albumin 3.4 gm/dL (3.7-5.3) L 03/08/17 11:00 Globulin 2.5 gm/dL 03/08/17 11:00 Albumin/Globulin Ratio 1.4 (1.0-1.8) 03/08/17 11:00 - Physical Exam Vitals and I&O: Vital Signs Temp 97.6 F 03/12/17 06:04 Pulse 64 03/12/17 09:59 Resp 18 03/12/17 06:04 BP 118/79 03/12/17 09:59 Pulse Ox 98 03/12/17 06:04 Intake & Output 03/11/17 03/12/17 03/12/17 18:59 06:59 18:59 Intake Total 700 Balance 700 Intake: Oral 700 Other: # Voids 3 1 # Bowel Movements 0 Active Medications: Current Medications Acetaminophen (Tylenol) 650 mg PO Q4HR PRN PRN Reason: Mild Pain / Temp above 100 Stop: 05/06/17 22:08 Last Admin: 03/09/17 21:15 Dose: 650 mg Al Hydrox/Mg Hydrox/Simethicone (Maalox) 30 ml PO Q4HR PRN PRN Reason: GI DISTRESS Stop: 05/06/17 22:08 Carvedilol (Coreg) 12.5 mg PO BID [facility] Stop: 05/07/17 16:59 Last Admin: 03/12/17 09:59 Dose: Not Given Duloxetine HCl (Cymbalta) 90 mg PO DAILY [facility] PRN Reason: Protocol Stop: 05/07/17 11:59 Last Admin: 03/12/17 10:01 Dose: Not Given Enoxaparin Sodium (Lovenox) 40 mg SUBQ DAILY [facility] Stop: 05/08/17 16:59 Last Admin: 03/12/17 10:00 Dose: Not Given Ergocalciferol (Vitamin D) 50,000 iu PO We [facility] Stop: 05/08/17 09:59 Last Admin: 03/09/17 09:27 Dose: Not Given Gabapentin (Neurontin) 800 mg PO TID [facility] Stop: 05/07/17 20:59 Last Admin: 03/12/17 10:01 Dose: Not Given Insulin Aspart (Novolog Insulin Sliding Scale) 0 units SUBQ ACHS [facility] PRN Reason: Protocol Stop: 05/06/17 22:15 Last Admin: 03/12/17 11:17 Dose: Not Given Lorazepam (Ativan) 0.5 mg PO Q4HR PRN; Protocol PRN Reason: Anxiety Stop: 04/06/17 22:08 Last Admin: 03/08/17 08:33 Dose: 0.5 mg Magnesium Hydroxide (Milk Of Magnesia) 30 ml PO HS PRN PRN Reason: Constipation Mirtazapine (Remeron) 15 mg PO HS [facility] PRN Reason: Protocol Stop: 05/07/17 20:59 Last Admin: 03/11/17 20:53 Dose: 15 mg Multivitamins/Vitamin C (Theragran) 1 tab PO DAILY [facility] Stop: 05/07/17 08:59 Last Admin: 03/12/17 10:01 Dose: Not Given Pantoprazole Sodium (Protonix) 40 mg PO QDAC [facility] Stop: 05/08/17 07:29 Last Admin: 03/12/17 06:44 Dose: 40 mg Tramadol HCl (Ultram) 50 mg PO Q4H PRN PRN Reason: Pain (Moderate) Stop: 05/07/17 15:17 Last Admin: 03/11/17 03:39 Dose: 50 mg Trazodone HCl (Desyrel) 100 mg PO HS [facility] Stop: 05/07/17 20:59 Last Admin: 03/11/17 20:53 Dose: 100 mg Zolpidem Tartrate (Ambien) 5 mg PO HS PRN PRN Reason: Insomnia Stop: 05/06/17 22:08 Last Admin: 03/11/17 22:22 Dose: 5 mg General: No acute distress HEENT: Atraumatic Cardiovascular: Regular rate, Normal S1, Normal S2 Assessment/Plan - Plan Plan: as per psych will monitor cpm Nutritional Asmnt/Malnutr-PDOC - Dietary Evaluation Malnutrition Findings (Please click <Entered> for more info): Nutritional Asmnt/Malnutrition Start: 03/11/17 18: 24 Text: Status: Complete Freq: Document 03/11/17 18:24 [facility] (Rec: 03/11/17 18:33 [facility] [id number]) Nutritional Asmnt/Malnutrition Patient General Information Nutritional Screening Moderate Risk Screening Diagnosis Major depression Pertinent Medical Hx/Surgical Hx Depression, 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 Pt was resting during time of visit. No muscle or fat depletion assessed. Pt reports lack of appetite since hospitalization over two weeks ago. RD encouraged oral intake and asked for preferences. Pt asked for cheeseburger; food item honored for dinner. RD encouraged pt to participate in menu selections, pt verbalized understanding. Current Diet Order/ Nutrition Support CCHO-60 GM Patient / S.O Can Pertinent Medications Theragran, Protonix Pertinent Labs POC Glucose WNL. Nutritional Hx/Data Height 1.63 m Height (Calculated Centimeters) 162.6 Current Weight (lbs) 65.599 kg Weight (Calculated Kilograms) 65.6 Weight (Calculated Grams) 28011.5 Usual body Weight (lbs) 155 % Usual Body Weight 93 [place] Body Weight 120 % [place] Body Weight 121 Recent Weight Change Yes Weight Status Approriate GI Symptoms GI Symptoms Nausea Food Allergies No Usual diet at home Regular Skin Integrity/Comment: Carlos 19. No skin breakdown. Current %PO Negligible < 25% Estimated Nutritional Goals BEE in Kcals: Using Current wt Calories/Kcals/Kg Based on current wt 65.7 kg Kcals Calculated 1523-7910 kcals/day (25-30 kcals/kg) Protein: Using Current wt Protein g/kg: Based on current wt 65.7 kg Protein Calculated 66 gm/day (1 gm/kg) Fluid: ml 7644-8392 ml/day (1 ml/kcal) Nutritional Problem 1. Problem Problem Inadequate oral intake related to Etiology poor appetite, nausea, depression as evidenced by Signs/Symptoms: PO intake of 0-25%. Malnutrition Alert Protein-Calorie Malnutrition N/A Is there a minimum of two criteria No selected? Query Text:Check all the applicable criteria. A minimum of two criteria are recommended for diagnosis of either severe or non-severe malnutrition. Malnutrition Related to Morbid Obesity Malnutrition related to morbid obesity No Intervention/Recommendation Comments 1. Continue with current diet. [place] food preferences. Encourage pt to participate in menu selections. 2. If PO intake remains less than 50%, recommend Boost Glucose Control TID. 3. Recommend provide antiemetic medication prior to meals. Expected Outcomes/Goals Expected Outcomes/Goals Have pt consume at least 50% of meals. Physician Parameters for PEM Body Mass Index (BMI) 19 - 24 (Normal) Serum Albumin (g/dl) 3.1 - 3.4 (Mild)
--- NOTE | 2017-03-12 20:18 | Progress Notes ---
DATE: 03/12/2017 SUBJECTIVE: Chart reviewed and the patient interviewed. Also, discussed the patient's condition with the staff and reviewed records and labs. The patient is still severely depressed and anxious. The patient also is withdrawn and interacting minimally with others. The patient also is still feeling hopeless and withdrawn. Otherwise, the patient is compliant with taking her medications with no side effects of medications. ASSESSMENT: The patient is still depressed. TREATMENT PLAN: We will continue to monitor her behavior and her condition closely. Also, continue to have supportive therapy for the patient and also continue to adjust psychotropic medications. JOB# [id number]
[2017-03-13] MEDS: Pantoprazole 40 mg EC Tab PO SCH (06:47)
[2017-03-13] MEDS: INSULIN ASPART SLIDING SCALE 100 UNITS/ML UNIT SUBQ SCH ×4 (06:48→20:31)
--- NOTE | 2017-03-13 07:00 | General Progress Note ---
Subjective - Review of Systems Events since last encounter: patient continues to be depressed withdrawn , denies cp, sob Objective - Results Result Diagrams: 03/08/17 11:00 03/08/17 11:00 Recent Labs: Laboratory Last Values WBC 5.5 Th/cmm (4.8-10.8) 03/08/17 11:00 RBC 4.04 Mil/cmm (3.80-5.10) 03/08/17 11:00 Hgb 12.0 gm/dL (11.7-15.5) 03/08/17 11:00 Hct 35.3 % (35.0-45.0) 03/08/17 11:00 MCV 87.3 fl (81-100) 03/08/17 11:00 MCH 29.8 pg (27.0-31.0) 03/08/17 11:00 MCHC Differential 34.1 pg (28.0-36.0) 03/08/17 11:00 RDW 14.4 % (11.5-20.0) 03/08/17 11:00 Plt Count 242 Th/cmm (150-400) 03/08/17 11:00 MPV 5.9 fl 03/08/17 11:00 Neutrophils % 75.9 % (40.0-80.0) 03/08/17 11:00 Lymphocytes % 13.0 % (20.0-50.0) L 03/08/17 11:00 Monocytes % 8.3 % (2.0-10.0) 03/08/17 11:00 Eosinophils % 1.5 % (0.0-5.0) 03/08/17 11:00 Basophils % 1.3 % (0.0-2.0) 03/08/17 11:00 Sodium 134 mEq/L (136-145) L 03/08/17 11:00 Potassium 3.5 mEq/L (3.5-5.1) 03/08/17 11:00 Chloride 96 mEq/L (98-107) L 03/08/17 11:00 Carbon Dioxide 24.5 mEq/L (21.0-31.0) 03/08/17 11:00 Anion Gap 17.0 (7.0-16.0) H 03/08/17 11:00 BUN 7 mg/dL (7-25) 03/08/17 11:00 Creatinine 0.7 mg/dL (0.6-1.2) 03/08/17 11:00 Est GFR ( Amer) > 60.0 ml/min (>90) 03/08/17 11:00 Est GFR (Non-Af Amer) > 60.0 ml/min 03/08/17 11:00 BUN/Creatinine Ratio 10.0 03/08/17 11:00 Glucose 157 mg/dL (70-105) H 03/08/17 11:00 POC Glucose 139 MG/DL (70 - 105) H 03/13/17 06:35 Calcium 9.3 mg/dL (8.6-10.3) 03/08/17 11:00 Total Bilirubin 0.6 mg/dL (0.3-1.0) 03/08/17 11:00 AST 15 U/L (13-39) 03/08/17 11:00 ALT 15 U/L (7-52) 03/08/17 11:00 Alkaline Phosphatase 50 U/L (34-104) 03/08/17 11:00 Total Protein 5.9 gm/dL (6.0-8.3) L 03/08/17 11:00 Albumin 3.4 gm/dL (3.7-5.3) L 03/08/17 11:00 Globulin 2.5 gm/dL 03/08/17 11:00 Albumin/Globulin Ratio 1.4 (1.0-1.8) 03/08/17 11:00 - Physical Exam Vitals and I&O: Vital Signs Temp 98.1 F 03/12/17 21:13 Pulse 66 03/12/17 21:13 Resp 18 03/12/17 21:13 BP 110/72 03/12/17 21:13 Pulse Ox 96 03/12/17 21:13 Intake & Output 03/12/17 03/12/17 03/13/17 06:59 18:59 06:59 Intake Total 700 Balance 700 Intake: Oral 700 Other: # Voids 1 2 Active Medications: Current Medications Acetaminophen (Tylenol) 650 mg PO Q4HR PRN PRN Reason: Mild Pain / Temp above 100 Stop: 05/06/17 22:08 Last Admin: 03/09/17 21:15 Dose: 650 mg Al Hydrox/Mg Hydrox/Simethicone (Maalox) 30 ml PO Q4HR PRN PRN Reason: GI DISTRESS Stop: 05/06/17 22:08 Carvedilol (Coreg) 12.5 mg PO BID [facility] Stop: 05/07/17 16:59 Last Admin: 03/12/17 16:46 Dose: Not Given Duloxetine HCl (Cymbalta) 90 mg PO DAILY [facility]N PRN Reason: Protocol Stop: 05/07/17 11:59 Last Admin: 03/12/17 10:01 Dose: Not Given Enoxaparin Sodium (Lovenox) 40 mg SUBQ DAILY [facility] Stop: 05/08/17 16:59 Last Admin: 03/12/17 10:00 Dose: Not Given Ergocalciferol (Vitamin D) 50,000 iu PO We [facility] Stop: 05/08/17 09:59 Last Admin: 03/09/17 09:27 Dose: Not Given Gabapentin (Neurontin) 800 mg PO TID [facility] Stop: 05/07/17 20:59 Last Admin: 03/12/17 21:42 Dose: Not Given Insulin Aspart (Novolog Insulin Sliding Scale) 0 units SUBQ ACHS [facility]N PRN Reason: Protocol Stop: 05/06/17 22:15 Last Admin: 03/13/17 06:48 Dose: Not Given Lorazepam (Ativan) 0.5 mg PO Q4HR PRN; Protocol PRN Reason: Anxiety Stop: 04/06/17 22:08 Last Admin: 03/08/17 08:33 Dose: 0.5 mg Magnesium Hydroxide (Milk Of Magnesia) 30 ml PO HS PRN PRN Reason: Constipation Mirtazapine (Remeron) 15 mg PO HS [facility]N PRN Reason: Protocol Stop: 05/07/17 20:59 Last Admin: 03/12/17 21:43 Dose: Not Given Multivitamins/Vitamin C (Theragran) 1 tab PO DAILY [facility] Stop: 05/07/17 08:59 Last Admin: 03/12/17 10:01 Dose: Not Given Pantoprazole Sodium (Protonix) 40 mg PO QDAC [facility] Stop: 05/08/17 07:29 Last Admin: 03/13/17 06:47 Dose: 40 mg Tramadol HCl (Ultram) 50 mg PO Q4H PRN PRN Reason: Pain (Moderate) Stop: 05/07/17 15:17 Last Admin: 03/11/17 03:39 Dose: 50 mg Trazodone HCl (Desyrel) 100 mg PO HS [facility] Stop: 05/07/17 20:59 Last Admin: 03/12/17 21:44 Dose: Not Given Zolpidem Tartrate (Ambien) 5 mg PO HS PRN PRN Reason: Insomnia Stop: 05/06/17 22:08 Last Admin: 03/11/17 22:22 Dose: 5 mg General: No acute distress HEENT: Atraumatic Cardiovascular: Regular rate, Normal S1, Normal S2 Assessment/Plan - Plan Plan: as per psych will monitor cpm Nutritional Asmnt/Malnutr-PDOC - Dietary Evaluation Malnutrition Findings (Please click <Entered> for more info): Nutritional Asmnt/Malnutrition Start: 03/11/17 18: 24 Text: Status: Complete Freq: Document 03/11/17 18:24 [facility] (Rec: 03/11/17 18:33 [facility] [id number]) Nutritional Asmnt/Malnutrition Patient General Information Nutritional Screening Moderate Risk Screening Diagnosis Major depression Pertinent Medical Hx/Surgical Hx Depression, 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 Pt was resting during time of visit. No muscle or fat depletion assessed. Pt reports lack of appetite since hospitalization over two weeks ago. RD encouraged oral intake and asked for preferences. Pt asked for cheeseburger; food item honored for dinner. RD encouraged pt to participate in menu selections, pt verbalized understanding. Current Diet Order/ Nutrition Support CCHO-60 GM Patient / S.O Can Pertinent Medications Theragran, Protonix Pertinent Labs POC Glucose WNL. Nutritional Hx/Data Height 1.63 m Height (Calculated Centimeters) 162.6 Current Weight (lbs) 65.599 kg Weight (Calculated Kilograms) 65.6 Weight (Calculated Grams) 70506.5 Usual body Weight (lbs) 155 % Usual Body Weight 93 [place] Body Weight 120 % [place] Body Weight 121 Recent Weight Change Yes Weight Status Approriate GI Symptoms GI Symptoms Nausea Food Allergies No Usual diet at home Regular Skin Integrity/Comment: Carlos 19. No skin breakdown. Current %PO Negligible < 25% Estimated Nutritional Goals BEE in Kcals: Using Current wt Calories/Kcals/Kg Based on current wt 65.7 kg Kcals Calculated 9038-8573 kcals/day (25-30 kcals/kg) Protein: Using Current wt Protein g/kg: Based on current wt 65.7 kg Protein Calculated 66 gm/day (1 gm/kg) Fluid: ml 7206-3466 ml/day (1 ml/kcal) Nutritional Problem 1. Problem Problem Inadequate oral intake related to Etiology poor appetite, nausea, depression as evidenced by Signs/Symptoms: PO intake of 0-25%. Malnutrition Alert Protein-Calorie Malnutrition N/A Is there a minimum of two criteria No selected? Query Text:Check all the applicable criteria. A minimum of two criteria are recommended for diagnosis of either severe or non-severe malnutrition. Malnutrition Related to Morbid Obesity Malnutrition related to morbid obesity No Intervention/Recommendation Comments 1. Continue with current diet. [place] food preferences. Encourage pt to participate in menu selections. 2. If PO intake remains less than 50%, recommend Boost Glucose Control TID. 3. Recommend provide antiemetic medication prior to meals. Expected Outcomes/Goals Expected Outcomes/Goals Have pt consume at least 50% of meals. Physician Parameters for PEM Body Mass Index (BMI) 19 - 24 (Normal) Serum Albumin (g/dl) 3.1 - 3.4 (Mild)
[2017-03-13] MEDS: Enoxaparin 40 mg/0.4 mL 0.4mL Syr SUBQ SCH (09:51)
[2017-03-13] MEDS: Multivitamin Tab PO SCH (09:51)
--- NOTE | 2017-03-13 19:15 | Progress Notes ---
DATE: 03/13/2017 SUBJECTIVE: Chart reviewed and the patient interviewed. Also, discussed the patient's condition with the staff and reviewed records and labs. The patient is selectively mute and she is still in a depressed mood. The patient did not answer questions that staff was trying to direct her, and she was getting angry and agitated. She also still is asking for more pain medications during my interview. The patient still has poor eye contact with low tone and rate of speech and she is still feeling severely depressed. ASSESSMENT: The patient is still depressed. TREATMENT PLAN: We will continue to monitor her behavior and her condition closely. Also, continue adjusting psychotropic medications and work on her ineffective coping. JOB# [id number]
[2017-03-14] MEDS: Pantoprazole 40 mg EC Tab PO SCH (06:37)
[2017-03-14] MEDS: INSULIN ASPART SLIDING SCALE 100 UNITS/ML UNIT SUBQ SCH ×4 (06:43→21:24)
[2017-03-14] MEDS: Enoxaparin 40 mg/0.4 mL 0.4mL Syr SUBQ SCH (09:08)
[2017-03-14] MEDS: Multivitamin Tab PO SCH (09:08)
--- NOTE | 2017-03-15 02:02 | Progress Notes ---
DATE: 03/14/2017 Case was discussed with staff of the patient, reviewed records. Covering for Dr. Crawford. This is a 51-year-old female who was admitted on the 03/07/2017. She came from home with ____. She was living with her mother. She has been depressed, having thoughts of suicide with plan to overdose on pills. She was seen by Pain Medicine in [facility] and transferred to the [facility]. The patient with a history of depression, no prior hospitalizations. The patient has been compliant with the medication with no side effects, she seems to be showing some progress. The patient has been on Cymbalta 90 mg a day for depression and Neurontin 800 mg 3 times a day and then Remeron 50 mg at bedtime with no side effects, no sedation, no nausea, no extrapyramidal symptoms. We will continue to work with the patient in group therapy, milieu therapy, adjust the medication as needed. JOB# [id number]
[2017-03-15] MEDS: INSULIN ASPART SLIDING SCALE 100 UNITS/ML UNIT SUBQ SCH ×4 (06:49→20:47)
[2017-03-15] MEDS: Pantoprazole 40 mg EC Tab PO SCH (06:49)
[2017-03-15] MEDS: Multivitamin Tab PO SCH (08:37)
[2017-03-15] MEDS: Enoxaparin 40 mg/0.4 mL 0.4mL Syr SUBQ SCH (08:38)
--- NOTE | 2017-03-15 09:37 | General Progress Note ---
Subjective - Review of Systems Events since last encounter: patient awake, no distress patient here for depression with si to OD on meds Objective - Results Result Diagrams: 03/08/17 11:00 03/08/17 11:00 Recent Labs: Laboratory Last Values WBC 5.5 Th/cmm (4.8-10.8) 03/08/17 11:00 RBC 4.04 Mil/cmm (3.80-5.10) 03/08/17 11:00 Hgb 12.0 gm/dL (11.7-15.5) 03/08/17 11:00 Hct 35.3 % (35.0-45.0) 03/08/17 11:00 MCV 87.3 fl (81-100) 03/08/17 11:00 MCH 29.8 pg (27.0-31.0) 03/08/17 11:00 MCHC Differential 34.1 pg (28.0-36.0) 03/08/17 11:00 RDW 14.4 % (11.5-20.0) 03/08/17 11:00 Plt Count 242 Th/cmm (150-400) 03/08/17 11:00 MPV 5.9 fl 03/08/17 11:00 Neutrophils % 75.9 % (40.0-80.0) 03/08/17 11:00 Lymphocytes % 13.0 % (20.0-50.0) L 03/08/17 11:00 Monocytes % 8.3 % (2.0-10.0) 03/08/17 11:00 Eosinophils % 1.5 % (0.0-5.0) 03/08/17 11:00 Basophils % 1.3 % (0.0-2.0) 03/08/17 11:00 Sodium 134 mEq/L (136-145) L 03/08/17 11:00 Potassium 3.5 mEq/L (3.5-5.1) 03/08/17 11:00 Chloride 96 mEq/L (98-107) L 03/08/17 11:00 Carbon Dioxide 24.5 mEq/L (21.0-31.0) 03/08/17 11:00 Anion Gap 17.0 (7.0-16.0) H 03/08/17 11:00 BUN 7 mg/dL (7-25) 03/08/17 11:00 Creatinine 0.7 mg/dL (0.6-1.2) 03/08/17 11:00 Est GFR ( Amer) > 60.0 ml/min (>90) 03/08/17 11:00 Est GFR (Non-Af Amer) > 60.0 ml/min 03/08/17 11:00 BUN/Creatinine Ratio 10.0 03/08/17 11:00 Glucose 157 mg/dL (70-105) H 03/08/17 11:00 POC Glucose 157 MG/DL (70 - 105) H 03/15/17 05:50 Calcium 9.3 mg/dL (8.6-10.3) 03/08/17 11:00 Total Bilirubin 0.6 mg/dL (0.3-1.0) 03/08/17 11:00 AST 15 U/L (13-39) 03/08/17 11:00 ALT 15 U/L (7-52) 03/08/17 11:00 Alkaline Phosphatase 50 U/L (34-104) 03/08/17 11:00 Total Protein 5.9 gm/dL (6.0-8.3) L 03/08/17 11:00 Albumin 3.4 gm/dL (3.7-5.3) L 03/08/17 11:00 Globulin 2.5 gm/dL 03/08/17 11:00 Albumin/Globulin Ratio 1.4 (1.0-1.8) 03/08/17 11:00 - Physical Exam Vitals and I&O: Vital Signs Temp 98.2 F 03/15/17 06:31 Pulse 63 03/15/17 08:34 Resp 18 03/15/17 06:31 BP 97/59 03/15/17 08:34 Pulse Ox 96 03/15/17 06:31 Intake & Output 03/14/17 03/15/17 03/15/17 18:59 06:59 18:59 Intake Total 1600 240 Balance 1600 240 Intake: Oral 1600 240 Other: # Voids 4 3 # Bowel Movements 1 0 Active Medications: Current Medications Acetaminophen (Tylenol) 650 mg PO Q4HR PRN PRN Reason: Mild Pain / Temp above 100 Stop: 05/06/17 22:08 Last Admin: 03/09/17 21:15 Dose: 650 mg Al Hydrox/Mg Hydrox/Simethicone (Maalox) 30 ml PO Q4HR PRN PRN Reason: GI DISTRESS Stop: 05/06/17 22:08 Carvedilol (Coreg) 12.5 mg PO BID [facility] Stop: 05/07/17 16:59 Last Admin: 03/15/17 08:34 Dose: Not Given Duloxetine HCl (Cymbalta) 90 mg PO DAILY [facility]N PRN Reason: Protocol Stop: 05/07/17 11:59 Last Admin: 03/15/17 08:37 Dose: 90 mg Enoxaparin Sodium (Lovenox) 40 mg SUBQ DAILY [facility] Stop: 05/08/17 16:59 Last Admin: 03/15/17 08:38 Dose: 40 mg Ergocalciferol (Vitamin D) 50,000 iu PO We [facility] Stop: 05/08/17 09:59 Last Admin: 03/09/17 09:27 Dose: Not Given Gabapentin (Neurontin) 800 mg PO TID [facility] Stop: 05/07/17 20:59 Last Admin: 03/15/17 08:37 Dose: 800 mg Insulin Aspart (Novolog Insulin Sliding Scale) 0 units SUBQ ACHS [facility]GHN PRN Reason: Protocol Stop: 05/06/17 22:15 Last Admin: 03/15/17 06:49 Dose: 2 units Lorazepam (Ativan) 0.5 mg PO Q4HR PRN; Protocol PRN Reason: Anxiety Stop: 04/06/17 22:08 Last Admin: 03/15/17 08:37 Dose: 0.5 mg Magnesium Hydroxide (Milk Of Magnesia) 30 ml PO HS PRN PRN Reason: Constipation Mirtazapine (Remeron) 15 mg PO HS [facility]N PRN Reason: Protocol Stop: 05/07/17 20:59 Last Admin: 03/14/17 21:24 Dose: 15 mg Multivitamins/Vitamin C (Theragran) 1 tab PO DAILY [facility]N Stop: 05/07/17 08:59 Last Admin: 03/15/17 08:37 Dose: 1 tab Pantoprazole Sodium (Protonix) 40 mg PO QDAC [facility]N Stop: 05/08/17 07:29 Last Admin: 03/15/17 06:49 Dose: 40 mg Tramadol HCl (Ultram) 50 mg PO Q4H PRN PRN Reason: Pain (Moderate) Stop: 05/07/17 15:17 Last Admin: 03/13/17 10:24 Dose: 50 mg Trazodone HCl (Desyrel) 100 mg PO HS [facility] Stop: 05/07/17 20:59 Last Admin: 03/14/17 21:24 Dose: 100 mg Zolpidem Tartrate (Ambien) 5 mg PO HS PRN PRN Reason: Insomnia Stop: 05/06/17 22:08 Last Admin: 03/11/17 22:22 Dose: 5 mg General: No acute distress HEENT: Atraumatic Cardiovascular: Regular rate, Normal S1, Normal S2 Assessment/Plan - Plan Plan: as per psych will monitor cpm Nutritional Asmnt/Malnutr-PDOC - Dietary Evaluation Malnutrition Findings (Please click <Entered> for more info): Nutritional Asmnt/Malnutrition Start: 03/11/17 18: 24 Text: Status: Complete Freq: Document 03/11/17 18:24 [facility] (Rec: 03/11/17 18:33 [facility] [id number]) Nutritional Asmnt/Malnutrition Patient General Information Nutritional Screening Moderate Risk Screening Diagnosis Major depression Pertinent Medical Hx/Surgical Hx Depression, 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 Pt was resting during time of visit. No muscle or fat depletion assessed. Pt reports lack of appetite since hospitalization over two weeks ago. RD encouraged oral intake and asked for preferences. Pt asked for cheeseburger; food item honored for dinner. RD encouraged pt to participate in menu selections, pt verbalized understanding. Current Diet Order/ Nutrition Support CCHO-60 GM Patient / S.O Can Pertinent Medications Theragran, Protonix Pertinent Labs POC Glucose WNL. Nutritional Hx/Data Height 1.63 m Height (Calculated Centimeters) 162.6 Current Weight (lbs) 65.599 kg Weight (Calculated Kilograms) 65.6 Weight (Calculated Grams) 56470.5 Usual body Weight (lbs) 155 % Usual Body Weight 93 [place] Body Weight 120 % [place] Body Weight 121 Recent Weight Change Yes Weight Status Approriate GI Symptoms GI Symptoms Nausea Food Allergies No Usual diet at home Regular Skin Integrity/Comment: Carlos [place]. No skin breakdown. Current %PO Negligible < 25% Estimated Nutritional Goals BEE in Kcals: Using Current wt Calories/Kcals/Kg Based on current wt 65.7 kg Kcals Calculated 2669-1092 kcals/day (25-30 kcals/kg) Protein: Using Current wt Protein g/kg: Based on current wt 65.7 kg Protein Calculated 66 gm/day (1 gm/kg) Fluid: ml 7979-3449 ml/day (1 ml/kcal) Nutritional Problem 1. Problem Problem Inadequate oral intake related to Etiology poor appetite, nausea, depression as evidenced by Signs/Symptoms: PO intake of 0-25%. Malnutrition Alert Protein-Calorie Malnutrition N/A Is there a minimum of two criteria No selected? Query Text:Check all the applicable criteria. A minimum of two criteria are recommended for diagnosis of either severe or non-severe malnutrition. Malnutrition Related to Morbid Obesity Malnutrition related to morbid obesity No Intervention/Recommendation Comments 1. Continue with current diet. [place] food preferences. Encourage pt to participate in menu selections. 2. If PO intake remains less than 50%, recommend Boost Glucose Control TID. 3. Recommend provide antiemetic medication prior to meals. Expected Outcomes/Goals Expected Outcomes/Goals Have pt consume at least 50% of meals. Physician Parameters for PEM Body Mass Index (BMI) 19 - 24 (Normal) Serum Albumin (g/dl) 3.1 - 3.4 (Mild)
--- NOTE | 2017-03-15 15:26 | Progress Notes ---
DATE: 03/15/2017 Case was discussed with staff of the patient, reviewed records. The patient continues to be depressed. Continues to be isolating. She did report card that she wanted to overdose on pills. The patient continues to be depressed. Continues to be unpredictable, impulsive in her first hospitalization. She is compliant with the medication with no side effects, no sedation, no nausea. We will continue with the patient in group therapy, milieu therapy, adjust the medication as needed. JOB# [id number]
[2017-03-16] MEDS: Pantoprazole 40 mg EC Tab PO SCH (06:45)
[2017-03-16] MEDS: INSULIN ASPART SLIDING SCALE 100 UNITS/ML UNIT SUBQ SCH ×4 (07:13→21:01)
[2017-03-16] MEDS: Enoxaparin 40 mg/0.4 mL 0.4mL Syr SUBQ SCH (09:13)
[2017-03-16] MEDS: Multivitamin Tab PO SCH (09:14)
--- NOTE | 2017-03-16 14:37 | General Progress Note ---
Subjective - Review of Systems Events since last encounter: pateint admitted for depression with si to OD on pills patient awake, no distress depressed mood Objective - Results Result Diagrams: 03/08/17 11:00 03/08/17 11:00 Recent Labs: Laboratory Last Values WBC 5.5 Th/cmm (4.8-10.8) 03/08/17 11:00 RBC 4.04 Mil/cmm (3.80-5.10) 03/08/17 11:00 Hgb 12.0 gm/dL (11.7-15.5) 03/08/17 11:00 Hct 35.3 % (35.0-45.0) 03/08/17 11:00 MCV 87.3 fl (81-100) 03/08/17 11:00 MCH 29.8 pg (27.0-31.0) 03/08/17 11:00 MCHC Differential 34.1 pg (28.0-36.0) 03/08/17 11:00 RDW 14.4 % (11.5-20.0) 03/08/17 11:00 Plt Count 242 Th/cmm (150-400) 03/08/17 11:00 MPV 5.9 fl 03/08/17 11:00 Neutrophils % 75.9 % (40.0-80.0) 03/08/17 11:00 Lymphocytes % 13.0 % (20.0-50.0) L 03/08/17 11:00 Monocytes % 8.3 % (2.0-10.0) 03/08/17 11:00 Eosinophils % 1.5 % (0.0-5.0) 03/08/17 11:00 Basophils % 1.3 % (0.0-2.0) 03/08/17 11:00 Sodium 134 mEq/L (136-145) L 03/08/17 11:00 Potassium 3.5 mEq/L (3.5-5.1) 03/08/17 11:00 Chloride 96 mEq/L (98-107) L 03/08/17 11:00 Carbon Dioxide 24.5 mEq/L (21.0-31.0) 03/08/17 11:00 Anion Gap 17.0 (7.0-16.0) H 03/08/17 11:00 BUN 7 mg/dL (7-25) 03/08/17 11:00 Creatinine 0.7 mg/dL (0.6-1.2) 03/08/17 11:00 Est GFR ( Amer) > 60.0 ml/min (>90) 03/08/17 11:00 Est GFR (Non-Af Amer) > 60.0 ml/min 03/08/17 11:00 BUN/Creatinine Ratio 10.0 03/08/17 11:00 Glucose 157 mg/dL (70-105) H 03/08/17 11:00 POC Glucose 168 MG/DL (70 - 105) H 03/16/17 11:12 Calcium 9.3 mg/dL (8.6-10.3) 03/08/17 11:00 Total Bilirubin 0.6 mg/dL (0.3-1.0) 03/08/17 11:00 AST 15 U/L (13-39) 03/08/17 11:00 ALT 15 U/L (7-52) 03/08/17 11:00 Alkaline Phosphatase 50 U/L (34-104) 03/08/17 11:00 Total Protein 5.9 gm/dL (6.0-8.3) L 03/08/17 11:00 Albumin 3.4 gm/dL (3.7-5.3) L 03/08/17 11:00 Globulin 2.5 gm/dL 03/08/17 11:00 Albumin/Globulin Ratio 1.4 (1.0-1.8) 03/08/17 11:00 - Physical Exam Vitals and I&O: Vital Signs Temp 98.4 F 03/16/17 05:21 Pulse 67 03/16/17 05:21 Resp 20 03/16/17 05:21 BP 103/58 03/16/17 05:21 Pulse Ox 96 03/16/17 05:21 Intake & Output 03/15/17 03/16/17 03/16/17 18:59 06:59 18:59 Weight (lbs) 57.788 kg Other: # Voids 3 # Bowel Movements 0 Active Medications: Current Medications Acetaminophen (Tylenol) 650 mg PO Q4HR PRN PRN Reason: Mild Pain / Temp above 100 Stop: 05/06/17 22:08 Last Admin: 03/09/17 21:15 Dose: 650 mg Al Hydrox/Mg Hydrox/Simethicone (Maalox) 30 ml PO Q4HR PRN PRN Reason: GI DISTRESS Stop: 05/06/17 22:08 Carvedilol (Coreg) 12.5 mg PO BID DEVAUGHN Stop: 05/07/17 16:59 Last Admin: 03/16/17 09:13 Dose: Not Given Duloxetine HCl (Cymbalta) 90 mg PO DAILY [facility]AUGHN PRN Reason: Protocol Stop: 05/07/17 11:59 Last Admin: 03/16/17 09:13 Dose: Not Given Enoxaparin Sodium (Lovenox) 40 mg SUBQ DAILY [facility]AUGHN Stop: 05/08/17 16:59 Last Admin: 03/16/17 09:13 Dose: Not Given Ergocalciferol (Vitamin D) 50,000 iu PO We [facility] Stop: 05/08/17 09:59 Last Admin: 03/16/17 09:14 Dose: Not Given Gabapentin (Neurontin) 800 mg PO TID DEVAUGHN Stop: 05/07/17 20:59 Last Admin: 03/16/17 09:14 Dose: Not Given Insulin Aspart (Novolog Insulin Sliding Scale) 0 units SUBQ ACHS [facility]AUGHN PRN Reason: Protocol Stop: 05/06/17 22:15 Last Admin: 03/16/17 11:26 Dose: 2 units Magnesium Hydroxide (Milk Of Magnesia) 30 ml PO HS PRN PRN Reason: Constipation Mirtazapine (Remeron) 15 mg PO HS DEVAUGHN PRN Reason: Protocol Stop: 05/07/17 20:59 Last Admin: 03/15/17 20:40 Dose: 15 mg Multivitamins/Vitamin C (Theragran) 1 tab PO DAILY [facility]GHN Stop: 05/07/17 08:59 Last Admin: 03/16/17 09:14 Dose: Not Given Pantoprazole Sodium (Protonix) 40 mg PO QDAC [facility]N Stop: 05/08/17 07:29 Last Admin: 03/16/17 06:45 Dose: 40 mg Tramadol HCl (Ultram) 50 mg PO Q4H PRN PRN Reason: Pain (Moderate) Stop: 05/07/17 15:17 Last Admin: 03/13/17 10:24 Dose: 50 mg Trazodone HCl (Desyrel) 100 mg PO HS [facility]GHN Stop: 05/07/17 20:59 Last Admin: 03/15/17 20:41 Dose: 100 mg General: No acute distress HEENT: Atraumatic Cardiovascular: Regular rate, Normal S1, Normal S2 Assessment/Plan - Plan Plan: as per psych will monitor cpm Nutritional Asmnt/Malnutr-PDOC - Dietary Evaluation Malnutrition Findings (Please click <Entered> for more info): Nutritional Asmnt/Malnutrition Start: 03/11/17 18: 24 Text: Status: Complete Freq: Document 03/11/17 18:24 [facility] (Rec: 03/11/17 18:33 [facility] [id number]) Nutritional Asmnt/Malnutrition Patient General Information Nutritional Screening Moderate Risk Screening Diagnosis Major depression Pertinent Medical Hx/Surgical Hx Depression, 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 Pt was resting during time of visit. No muscle or fat depletion assessed. Pt reports lack of appetite since hospitalization over two weeks ago. RD encouraged oral intake and asked for preferences. Pt asked for cheeseburger; food item honored for dinner. RD encouraged pt to participate in menu selections, pt verbalized understanding. Current Diet Order/ Nutrition Support CCHO-60 GM Patient / S.O Can Pertinent Medications Theragran, Protonix Pertinent Labs POC Glucose WNL. Nutritional Hx/Data Height 1.63 m Height (Calculated Centimeters) 162.6 Current Weight (lbs) 65.599 kg Weight (Calculated Kilograms) 65.6 Weight (Calculated Grams) 36250.5 Usual body Weight (lbs) 155 % Usual Body Weight 93 [place] Body Weight 120 % [place] Body Weight 121 Recent Weight Change Yes Weight Status Approriate GI Symptoms GI Symptoms Nausea Food Allergies No Usual diet at home Regular Skin Integrity/Comment: Carlos 19. No skin breakdown. Current %PO Negligible < 25% Estimated Nutritional Goals BEE in Kcals: Using Current wt Calories/Kcals/Kg Based on current wt 65.7 kg Kcals Calculated 1177-3826 kcals/day (25-30 kcals/kg) Protein: Using Current wt Protein g/kg: Based on current wt 65.7 kg Protein Calculated 66 gm/day (1 gm/kg) Fluid: ml 7716-7668 ml/day (1 ml/kcal) Nutritional Problem 1. Problem Problem Inadequate oral intake related to Etiology poor appetite, nausea, depression as evidenced by Signs/Symptoms: PO intake of 0-25%. Malnutrition Alert Protein-Calorie Malnutrition N/A Is there a minimum of two criteria No selected? Query Text:Check all the applicable criteria. A minimum of two criteria are recommended for diagnosis of either severe or non-severe malnutrition. Malnutrition Related to Morbid Obesity Malnutrition related to morbid obesity No Intervention/Recommendation Comments 1. Continue with current diet. [place] food preferences. Encourage pt to participate in menu selections. 2. If PO intake remains less than 50%, recommend Boost Glucose Control TID. 3. Recommend provide antiemetic medication prior to meals. Expected Outcomes/Goals Expected Outcomes/Goals Have pt consume at least 50% of meals. Physician Parameters for PEM Body Mass Index (BMI) 19 - 24 (Normal) Serum Albumin (g/dl) 3.1 - 3.4 (Mild)
--- NOTE | 2017-03-16 20:19 | Progress Notes ---
DATE: 03/16/2017 SUBJECTIVE: Chart reviewed and the patient interviewed. Also discussed the patient's condition with the staff and reviewed records and labs. The patient continued to be severely depressed and withdrawn. The patient also still feeling hopeless and helpless. She also continued to help multiple somatic complaints and asking for more pain medications. The patient also is interacting minimally with others. assisted living manager spoke to the patient's brother and he said that the patient would not be able to return in the way she is right now and discussed going to rehabilitation. Might consider the patient to go to rehabilitation. ASSESSMENT: The patient is still depressed. TREATMENT PLAN: Continue monitoring her behavior and her current medications and continue to follow up closely. [facility]# [id number]
[2017-03-17] MEDS: INSULIN ASPART SLIDING SCALE 100 UNITS/ML UNIT SUBQ SCH ×4 (06:49→20:42)
[2017-03-17] MEDS: Pantoprazole 40 mg EC Tab PO SCH (06:50)
--- NOTE | 2017-03-17 08:12 | Diagnostic Imaging Report ---
CT scan of the brain without intravenous contrast HISTORY: Headache, trauma Total DLP equals 651 CTDI equals 34.6 Axial sections were obtained from the base of the skull to the vertex. There is prominence/enlargement of the ventricular system size. Associated enlargement of cerebral sulci and subarachnoid cisterns. Findings are consistent with changes of generalized cerebral atrophy. No acute parenchymal abnormalities. No acute cerebral hemorrhage. Hypodensity is seen within the supratentorial white matter regions without mass effect. The findings may be associated with chronic small vessel ischemic disease. No extra-axial masses or abnormal fluid collections. IMPRESSION: 1. No acute abnormalities 2. Cerebral atrophy 3. Supratentorial white matter changes that may reflect chronic small vessel ischemic disease
[2017-03-17] MEDS: Multivitamin Tab PO SCH (09:15)
[2017-03-17] MEDS: Enoxaparin 40 mg/0.4 mL 0.4mL Syr SUBQ SCH (09:16)
--- NOTE | 2017-03-17 10:25 | General Progress Note ---
Subjective - Review of Systems Events since last encounter: patient awake alert , depressed Objective - Results Result Diagrams: 03/08/17 11:00 03/08/17 11:00 Recent Labs: Laboratory Last Values WBC 5.5 Th/cmm (4.8-10.8) 03/08/17 11:00 RBC 4.04 Mil/cmm (3.80-5.10) 03/08/17 11:00 Hgb 12.0 gm/dL (11.7-15.5) 03/08/17 11:00 Hct 35.3 % (35.0-45.0) 03/08/17 11:00 MCV 87.3 fl (81-100) 03/08/17 11:00 MCH 29.8 pg (27.0-31.0) 03/08/17 11:00 MCHC Differential 34.1 pg (28.0-36.0) 03/08/17 11:00 RDW 14.4 % (11.5-20.0) 03/08/17 11:00 Plt Count 242 Th/cmm (150-400) 03/08/17 11:00 MPV 5.9 fl 03/08/17 11:00 Neutrophils % 75.9 % (40.0-80.0) 03/08/17 11:00 Lymphocytes % 13.0 % (20.0-50.0) L 03/08/17 11:00 Monocytes % 8.3 % (2.0-10.0) 03/08/17 11:00 Eosinophils % 1.5 % (0.0-5.0) 03/08/17 11:00 Basophils % 1.3 % (0.0-2.0) 03/08/17 11:00 Sodium 134 mEq/L (136-145) L 03/08/17 11:00 Potassium 3.5 mEq/L (3.5-5.1) 03/08/17 11:00 Chloride 96 mEq/L (98-107) L 03/08/17 11:00 Carbon Dioxide 24.5 mEq/L (21.0-31.0) 03/08/17 11:00 Anion Gap 17.0 (7.0-16.0) H 03/08/17 11:00 BUN 7 mg/dL (7-25) 03/08/17 11:00 Creatinine 0.7 mg/dL (0.6-1.2) 03/08/17 11:00 Est GFR ( Amer) > 60.0 ml/min (>90) 03/08/17 11:00 Est GFR (Non-Af Amer) > 60.0 ml/min 03/08/17 11:00 BUN/Creatinine Ratio 10.0 03/08/17 11:00 Glucose 157 mg/dL (70-105) H 03/08/17 11:00 POC Glucose 160 MG/DL (70 - 105) H 03/17/17 06:19 Calcium 9.3 mg/dL (8.6-10.3) 03/08/17 11:00 Total Bilirubin 0.6 mg/dL (0.3-1.0) 03/08/17 11:00 AST 15 U/L (13-39) 03/08/17 11:00 ALT 15 U/L (7-52) 03/08/17 11:00 Alkaline Phosphatase 50 U/L (34-104) 03/08/17 11:00 Total Protein 5.9 gm/dL (6.0-8.3) L 03/08/17 11:00 Albumin 3.4 gm/dL (3.7-5.3) L 03/08/17 11:00 Globulin 2.5 gm/dL 03/08/17 11:00 Albumin/Globulin Ratio 1.4 (1.0-1.8) 03/08/17 11:00 - Physical Exam Vitals and I&O: Vital Signs Temp 97.9 F 03/17/17 06:48 Pulse 70 03/17/17 09:15 Resp 20 03/17/17 06:48 BP 128/74 03/17/17 09:15 Pulse Ox 100 03/17/17 06:48 Intake & Output 03/16/17 03/17/17 03/17/17 18:59 06:59 18:59 Intake Total 200 120 Balance 200 120 Weight (lbs) 57.788 kg Intake: Oral 200 120 Other: # Voids 1 3 Active Medications: Current Medications Acetaminophen (Tylenol) 650 mg PO Q4HR PRN PRN Reason: Mild Pain / Temp above 100 Stop: 05/06/17 22:08 Last Admin: 03/09/17 21:15 Dose: 650 mg Al Hydrox/Mg Hydrox/Simethicone (Maalox) 30 ml PO Q4HR PRN PRN Reason: GI DISTRESS Stop: 05/06/17 22:08 Carvedilol (Coreg) 12.5 mg PO BID [facility] Stop: 05/07/17 16:59 Last Admin: 03/17/17 09:15 Dose: 12.5 mg Duloxetine HCl (Cymbalta) 90 mg PO DAILY [facility]N PRN Reason: Protocol Stop: 05/07/17 11:59 Last Admin: 03/17/17 09:15 Dose: 90 mg Enoxaparin Sodium (Lovenox) 40 mg SUBQ DAILY [facility] Stop: 05/08/17 16:59 Last Admin: 03/17/17 09:16 Dose: Not Given Ergocalciferol (Vitamin D) 50,000 iu PO We [facility] Stop: 05/08/17 09:59 Last Admin: 03/16/17 09:14 Dose: Not Given Gabapentin (Neurontin) 800 mg PO TID [facility]GHN Stop: 05/07/17 20:59 Last Admin: 03/17/17 09:15 Dose: 800 mg Insulin Aspart (Novolog Insulin Sliding Scale) 0 units SUBQ ACHS [facility]AUGHN PRN Reason: Protocol Stop: 05/06/17 22:15 Last Admin: 03/17/17 06:49 Dose: 2 units Magnesium Hydroxide (Milk Of Magnesia) 30 ml PO HS PRN PRN Reason: Constipation Mirtazapine (Remeron) 15 mg PO HS [facility]AUGHN PRN Reason: Protocol Stop: 05/07/17 20:59 Last Admin: 03/16/17 20:57 Dose: 15 mg Multivitamins/Vitamin C (Theragran) 1 tab PO DAILY [facility]N Stop: 05/07/17 08:59 Last Admin: 03/17/17 09:15 Dose: 1 tab Pantoprazole Sodium (Protonix) 40 mg PO QDAC [facility]N Stop: 05/08/17 07:29 Last Admin: 03/17/17 06:50 Dose: 40 mg Tramadol HCl (Ultram) 50 mg PO Q4H PRN PRN Reason: Pain (Moderate) Stop: 05/07/17 15:17 Last Admin: 03/17/17 06:50 Dose: 50 mg Trazodone HCl (Desyrel) 100 mg PO HS [facility]N Stop: 05/07/17 20:59 Last Admin: 03/16/17 21:00 Dose: Not Given General: No acute distress HEENT: Atraumatic Cardiovascular: Regular rate, Normal S1, Normal S2 Assessment/Plan - Plan Plan: as per psych will monitor cpm Nutritional Asmnt/Malnutr-PDOC - Dietary Evaluation Malnutrition Findings (Please click <Entered> for more info): Nutritional Asmnt/Malnutrition Start: 03/11/17 18: 24 Text: Status: Complete Freq: Document 03/11/17 18:24 [facility] (Rec: 03/11/17 18:33 [facility] [id number]) Nutritional Asmnt/Malnutrition Patient General Information Nutritional Screening Moderate Risk Screening Diagnosis Major depression Pertinent Medical Hx/Surgical Hx Depression, 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 Pt was resting during time of visit. No muscle or fat depletion assessed. Pt reports lack of appetite since hospitalization over two weeks ago. RD encouraged oral intake and asked for preferences. Pt asked for cheeseburger; food item honored for dinner. RD encouraged pt to participate in menu selections, pt verbalized understanding. Current Diet Order/ Nutrition Support CCHO-60 GM Patient / S.O Can Pertinent Medications Theragran, Protonix Pertinent Labs POC Glucose WNL. Nutritional Hx/Data Height 1.63 m Height (Calculated Centimeters) 162.6 Current Weight (lbs) 65.599 kg Weight (Calculated Kilograms) 65.6 Weight (Calculated Grams) 61664.5 Usual body Weight (lbs) 155 % Usual Body Weight 93 [place] Body Weight 120 % [place] Body Weight 121 Recent Weight Change Yes Weight Status Approriate GI Symptoms GI Symptoms Nausea Food Allergies No Usual diet at home Regular Skin Integrity/Comment: Carlos 19. No skin breakdown. Current %PO Negligible < 25% Estimated Nutritional Goals BEE in Kcals: Using Current wt Calories/Kcals/Kg Based on current wt 65.7 kg Kcals Calculated 4297-8483 kcals/day (25-30 kcals/kg) Protein: Using Current wt Protein g/kg: Based on current wt 65.7 kg Protein Calculated 66 gm/day (1 gm/kg) Fluid: ml 9639-2950 ml/day (1 ml/kcal) Nutritional Problem 1. Problem Problem Inadequate oral intake related to Etiology poor appetite, nausea, depression as evidenced by Signs/Symptoms: PO intake of 0-25%. Malnutrition Alert Protein-Calorie Malnutrition N/A Is there a minimum of two criteria No selected? Query Text:Check all the applicable criteria. A minimum of two criteria are recommended for diagnosis of either severe or non-severe malnutrition. Malnutrition Related to Morbid Obesity Malnutrition related to morbid obesity No Intervention/Recommendation Comments 1. Continue with current diet. [place] food preferences. Encourage pt to participate in menu selections. 2. If PO intake remains less than 50%, recommend Boost Glucose Control TID. 3. Recommend provide antiemetic medication prior to meals. Expected Outcomes/Goals Expected Outcomes/Goals Have pt consume at least 50% of meals. Physician Parameters for PEM Body Mass Index (BMI) 19 - 24 (Normal) Serum Albumin (g/dl) 3.1 - 3.4 (Mild)
--- NOTE | 2017-03-18 04:22 | Progress Notes ---
DATE: 03/17/2017 Case discussed with staff of the patient, reviewed records. The patient continues to isolate herself and continues to have feeling of depression and suicidal at times. She is sleeping better, eating better. She is compliant with the medication with no side effects, no sedation, no nausea and no extrapyramidal symptoms. I will be increasing her Cymbalta dose to 120 mg a day and we will continue to work with the patient in group therapy, milieu therapy and adjust medication as needed. JOB# [id number]
[2017-03-18] MEDS: INSULIN ASPART SLIDING SCALE 100 UNITS/ML UNIT SUBQ SCH ×4 (06:43→20:59)
[2017-03-18] MEDS: Pantoprazole 40 mg EC Tab PO SCH (06:43)
[2017-03-18] MEDS: Enoxaparin 40 mg/0.4 mL 0.4mL Syr SUBQ SCH ×2 (10:07→15:27)
[2017-03-18] MEDS: Multivitamin Tab PO SCH ×2 (10:07→15:28)
--- NOTE | 2017-03-18 13:16 | General Progress Note ---
Subjective - Review of Systems Events since last encounter: patient depressed continues to insolate self from other denies chest pain ,denies sob Objective - Results Result Diagrams: 03/08/17 11:00 03/08/17 11:00 Recent Labs: Laboratory Last Values WBC 5.5 Th/cmm (4.8-10.8) 03/08/17 11:00 RBC 4.04 Mil/cmm (3.80-5.10) 03/08/17 11:00 Hgb 12.0 gm/dL (11.7-15.5) 03/08/17 11:00 Hct 35.3 % (35.0-45.0) 03/08/17 11:00 MCV 87.3 fl (81-100) 03/08/17 11:00 MCH 29.8 pg (27.0-31.0) 03/08/17 11:00 MCHC Differential 34.1 pg (28.0-36.0) 03/08/17 11:00 RDW 14.4 % (11.5-20.0) 03/08/17 11:00 Plt Count 242 Th/cmm (150-400) 03/08/17 11:00 MPV 5.9 fl 03/08/17 11:00 Neutrophils % 75.9 % (40.0-80.0) 03/08/17 11:00 Lymphocytes % 13.0 % (20.0-50.0) L 03/08/17 11:00 Monocytes % 8.3 % (2.0-10.0) 03/08/17 11:00 Eosinophils % 1.5 % (0.0-5.0) 03/08/17 11:00 Basophils % 1.3 % (0.0-2.0) 03/08/17 11:00 Sodium 134 mEq/L (136-145) L 03/08/17 11:00 Potassium 3.5 mEq/L (3.5-5.1) 03/08/17 11:00 Chloride 96 mEq/L (98-107) L 03/08/17 11:00 Carbon Dioxide 24.5 mEq/L (21.0-31.0) 03/08/17 11:00 Anion Gap 17.0 (7.0-16.0) H 03/08/17 11:00 BUN 7 mg/dL (7-25) 03/08/17 11:00 Creatinine 0.7 mg/dL (0.6-1.2) 03/08/17 11:00 Est GFR ( Amer) > 60.0 ml/min (>90) 03/08/17 11:00 Est GFR (Non-Af Amer) > 60.0 ml/min 03/08/17 11:00 BUN/Creatinine Ratio 10.0 03/08/17 11:00 Glucose 157 mg/dL (70-105) H 03/08/17 11:00 POC Glucose 137 MG/DL (70 - 105) H 03/18/17 11:40 Calcium 9.3 mg/dL (8.6-10.3) 03/08/17 11:00 Total Bilirubin 0.6 mg/dL (0.3-1.0) 03/08/17 11:00 AST 15 U/L (13-39) 03/08/17 11:00 ALT 15 U/L (7-52) 03/08/17 11:00 Alkaline Phosphatase 50 U/L (34-104) 03/08/17 11:00 Total Protein 5.9 gm/dL (6.0-8.3) L 03/08/17 11:00 Albumin 3.4 gm/dL (3.7-5.3) L 03/08/17 11:00 Globulin 2.5 gm/dL 03/08/17 11:00 Albumin/Globulin Ratio 1.4 (1.0-1.8) 03/08/17 11:00 - Physical Exam Vitals and I&O: Vital Signs Temp 98 F 03/17/17 18:20 Pulse 85 03/17/17 18:20 Resp 20 03/17/17 18:20 BP 110/66 03/17/17 18:20 Pulse Ox 97 03/17/17 18:20 Intake & Output 03/17/17 03/18/17 03/18/17 18:59 06:59 18:59 Intake Total 200 Balance 200 Intake: Oral 200 Active Medications: Current Medications Acetaminophen (Tylenol) 650 mg PO Q4HR PRN PRN Reason: Mild Pain / Temp above 100 Stop: 05/06/17 22:08 Last Admin: 03/09/17 21:15 Dose: 650 mg Al Hydrox/Mg Hydrox/Simethicone (Maalox) 30 ml PO Q4HR PRN PRN Reason: GI DISTRESS Stop: 05/06/17 22:08 Carvedilol (Coreg) 12.5 mg PO BID [facility] Stop: 05/07/17 16:59 Last Admin: 03/18/17 10:53 Dose: Not Given Duloxetine HCl (Cymbalta) 120 mg PO DAILY DVEAUGHN PRN Reason: Protocol Stop: 05/16/17 11:34 Last Admin: 03/18/17 10:07 Dose: 120 mg Enoxaparin Sodium (Lovenox) 40 mg SUBQ DAILY [facility]GHN Stop: 05/08/17 16:59 Last Admin: 03/18/17 10:07 Dose: 40 mg Ergocalciferol (Vitamin D) 50,000 iu PO We [facility] Stop: 05/08/17 09:59 Last Admin: 03/16/17 09:14 Dose: Not Given Gabapentin (Neurontin) 800 mg PO TID [facility]GHN Stop: 05/07/17 20:59 Last Admin: 03/18/17 10:07 Dose: 800 mg Insulin Aspart (Novolog Insulin Sliding Scale) 0 units SUBQ ACHS [facility]AUGHN PRN Reason: Protocol Stop: 05/06/17 22:15 Last Admin: 03/18/17 06:43 Dose: 2 units Magnesium Hydroxide (Milk Of Magnesia) 30 ml PO HS PRN PRN Reason: Constipation Mirtazapine (Remeron) 15 mg PO HS [facility]AUGHN PRN Reason: Protocol Stop: 05/07/17 20:59 Last Admin: 03/17/17 20:42 Dose: 15 mg Multivitamins/Vitamin C (Theragran) 1 tab PO DAILY [facility]AUGHN Stop: 05/07/17 08:59 Last Admin: 03/18/17 10:07 Dose: 1 tab Pantoprazole Sodium (Protonix) 40 mg PO QDAC [facility]AUGHN Stop: 05/08/17 07:29 Last Admin: 03/18/17 06:43 Dose: 40 mg Tramadol HCl (Ultram) 50 mg PO Q4H PRN PRN Reason: Pain (Moderate) Stop: 05/07/17 15:17 Last Admin: 03/17/17 06:50 Dose: 50 mg Trazodone HCl (Desyrel) 100 mg PO HS [facility]AU[facility]N Stop: 05/07/17 20:59 Last Admin: 03/17/17 20:42 Dose: 100 mg General: No acute distress HEENT: Atraumatic Cardiovascular: Regular rate, Normal S1, Normal S2 Assessment/Plan - Plan Plan: as per psych will monitor cpm Nutritional Asmnt/Malnutr-PDOC - Dietary Evaluation Malnutrition Findings (Please click <Entered> for more info): Nutritional Asmnt/Malnutrition Start: 03/11/17 18: 24 Text: Status: Complete Freq: Document 03/11/17 18:24 [facility] (Rec: 03/11/17 18:33 [facility] [id number]) Nutritional Asmnt/Malnutrition Patient General Information Nutritional Screening Moderate Risk Screening Diagnosis Major depression Pertinent Medical Hx/Surgical Hx Depression, 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 Pt was resting during time of visit. No muscle or fat depletion assessed. Pt reports lack of appetite since hospitalization over two weeks ago. RD encouraged oral intake and asked for preferences. Pt asked for cheeseburger; food item honored for dinner. RD encouraged pt to participate in menu selections, pt verbalized understanding. Current Diet Order/ Nutrition Support CCHO-60 GM Patient / S.O Can Pertinent Medications Theragran, Protonix Pertinent Labs POC Glucose WNL. Nutritional Hx/Data Height 1.63 m Height (Calculated Centimeters) 162.6 Current Weight (lbs) 65.599 kg Weight (Calculated Kilograms) 65.6 Weight (Calculated Grams) 55920.5 Usual body Weight (lbs) 155 % Usual Body Weight 93 [place] Body Weight 120 % [place] Body Weight 121 Recent Weight Change Yes Weight Status Approriate GI Symptoms GI Symptoms Nausea Food Allergies No Usual diet at home Regular Skin Integrity/Comment: [place] 19. No skin breakdown. Current %PO Negligible < 25% Estimated Nutritional Goals BEE in Kcals: Using Current wt Calories/Kcals/Kg Based on current wt 65.7 kg Kcals Calculated 8930-2951 kcals/day (25-30 kcals/kg) Protein: Using Current wt Protein g/kg: Based on current wt 65.7 kg Protein Calculated 66 gm/day (1 gm/kg) Fluid: ml 8315-3796 ml/day (1 ml/kcal) Nutritional Problem 1. Problem Problem Inadequate oral intake related to Etiology poor appetite, nausea, depression as evidenced by Signs/Symptoms: PO intake of 0-25%. Malnutrition Alert Protein-Calorie Malnutrition N/A Is there a minimum of two criteria No selected? Query Text:Check all the applicable criteria. A minimum of two criteria are recommended for diagnosis of either severe or non-severe malnutrition. Malnutrition Related to Morbid Obesity Malnutrition related to morbid obesity No Intervention/Recommendation Comments 1. Continue with current diet. [place] food preferences. Encourage pt to participate in menu selections. 2. If PO intake remains less than 50%, recommend Boost Glucose Control TID. 3. Recommend provide antiemetic medication prior to meals. Expected Outcomes/Goals Expected Outcomes/Goals Have pt consume at least 50% of meals. Physician Parameters for PEM Body Mass Index (BMI) 19 - 24 (Normal) Serum Albumin (g/dl) 3.1 - 3.4 (Mild)
[2017-03-19] MEDS: INSULIN ASPART SLIDING SCALE 100 UNITS/ML UNIT SUBQ SCH ×4 (06:41→20:56)
[2017-03-19] MEDS: Pantoprazole 40 mg EC Tab PO SCH (06:41)
[2017-03-19] MEDS: Enoxaparin 40 mg/0.4 mL 0.4mL Syr SUBQ SCH (09:49)
[2017-03-19] MEDS: Multivitamin Tab PO SCH (09:51)
--- NOTE | 2017-03-19 10:29 | Progress Notes ---
DATE: 03/19/2017 SUBJECTIVE: The patient was seen in her room asleep. The patient is asleep but easily arousable. Appears to be comfortable in no acute distress. The patient is a poor historian due to medical condition. Otherwise, the patient is in no acute distress. OBJECTIVE: VITAL SIGNS: Temperature 97.8, heart rate of 71, blood pressure is 111/73, respirations of 19, 97% on room air. HEENT: Head is atraumatic and normocephalic. Eyes: Bilateral conjunctivae are clear. Bilateral pupils are equally round and reactive. NECK: Supple. No JVD. CARDIOVASCULAR: S1 and S2, without murmur. PULMONARY: Clear to auscultation. GASTROINTESTINAL: Soft and nontender without guarding. Positive bowel sounds. MUSCULOSKELETAL: No edema, no vomiting, no cyanosis. ASSESSMENT: 1. Depression. 2. Hypertension. 3. Neuropathy. 4. Seizure. 5. Vitamin D deficiency. 6. Diabetes mellitus. 7. Gastroesophageal reflux disease. 8. Osteoarthritis. PLAN: We will continue to keep the patient in inpatient psychiatric unit. We will follow up with the psychiatrist to monitor the patient's condition and behavior. Treatment plans were discussed with the patient's nurse. Treatment plans were discussed with Dr. Stroud. JOB# [id number]
--- NOTE | 2017-03-19 10:57 | Progress Notes ---
DATE: 03/18/[address] Crawford. Case was discussed with staff of the patient, reviewed records. The patient continues to be depressed, isolating herself. Continues to feel hopeless and helpless, multiple somatic complaints ____ medications, has been compliant with the medication with no side effects. No sedation, no nausea, and I did increase her duloxetine dose yesterday to 120 from 90 mg. She is on Neurontin 800 mg 3 times a day. Also, she is on Remeron 50 mg at bedtime with no side effects, no sedation, no nausea, and she denies any current intent to harm himself or anybody, and we will continue to work with the patient in group therapy, milieu therapy, adjust medication as needed. [facility]# [id number]
[2017-03-20] MEDS: Pantoprazole 40 mg EC Tab PO SCH (06:39)
[2017-03-20] MEDS: INSULIN ASPART SLIDING SCALE 100 UNITS/ML UNIT SUBQ SCH ×4 (06:40→20:59)
--- NOTE | 2017-03-20 11:21 | General Progress Note ---
Subjective - Review of Systems Events since last encounter: patient continues to be depressed with no other complaints Objective - Results Result Diagrams: 03/08/17 11:00 03/08/17 11:00 Recent Labs: Laboratory Last Values WBC 5.5 Th/cmm (4.8-10.8) 03/08/17 11:00 RBC 4.04 Mil/cmm (3.80-5.10) 03/08/17 11:00 Hgb 12.0 gm/dL (11.7-15.5) 03/08/17 11:00 Hct 35.3 % (35.0-45.0) 03/08/17 11:00 MCV 87.3 fl (81-100) 03/08/17 11:00 MCH 29.8 pg (27.0-31.0) 03/08/17 11:00 MCHC Differential 34.1 pg (28.0-36.0) 03/08/17 11:00 RDW 14.4 % (11.5-20.0) 03/08/17 11:00 Plt Count 242 Th/cmm (150-400) 03/08/17 11:00 MPV 5.9 fl 03/08/17 11:00 Neutrophils % 75.9 % (40.0-80.0) 03/08/17 11:00 Lymphocytes % 13.0 % (20.0-50.0) L 03/08/17 11:00 Monocytes % 8.3 % (2.0-10.0) 03/08/17 11:00 Eosinophils % 1.5 % (0.0-5.0) 03/08/17 11:00 Basophils % 1.3 % (0.0-2.0) 03/08/17 11:00 Sodium 134 mEq/L (136-145) L 03/08/17 11:00 Potassium 3.5 mEq/L (3.5-5.1) 03/08/17 11:00 Chloride 96 mEq/L (98-107) L 03/08/17 11:00 Carbon Dioxide 24.5 mEq/L (21.0-31.0) 03/08/17 11:00 Anion Gap 17.0 (7.0-16.0) H 03/08/17 11:00 BUN 7 mg/dL (7-25) 03/08/17 11:00 Creatinine 0.7 mg/dL (0.6-1.2) 03/08/17 11:00 Est GFR ( Amer) > 60.0 ml/min (>90) 03/08/17 11:00 Est GFR (Non-Af Amer) > 60.0 ml/min 03/08/17 11:00 BUN/Creatinine Ratio 10.0 03/08/17 11:00 Glucose 157 mg/dL (70-105) H 03/08/17 11:00 POC Glucose 152 MG/DL (70 - 105) H 03/18/17 19:55 Calcium 9.3 mg/dL (8.6-10.3) 03/08/17 11:00 Total Bilirubin 0.6 mg/dL (0.3-1.0) 03/08/17 11:00 AST 15 U/L (13-39) 03/08/17 11:00 ALT 15 U/L (7-52) 03/08/17 11:00 Alkaline Phosphatase 50 U/L (34-104) 03/08/17 11:00 Total Protein 5.9 gm/dL (6.0-8.3) L 03/08/17 11:00 Albumin 3.4 gm/dL (3.7-5.3) L 03/08/17 11:00 Globulin 2.5 gm/dL 03/08/17 11:00 Albumin/Globulin Ratio 1.4 (1.0-1.8) 03/08/17 11:00 - Physical Exam Vitals and I&O: Vital Signs Temp 97.7 F 03/20/17 06:34 Pulse 62 03/20/17 06:34 Resp 19 03/20/17 06:34 BP 107/71 03/20/17 06:34 Pulse Ox 98 03/20/17 06:34 Intake & Output 03/19/17 03/20/17 03/20/17 18:59 06:59 18:59 Intake Total 120 Balance 120 Intake: Oral 120 Other: # Voids 2 3 # Bowel Movements 0 Active Medications: Current Medications Acetaminophen (Tylenol) 650 mg PO Q4HR PRN PRN Reason: Mild Pain / Temp above 100 Stop: 05/06/17 22:08 Last Admin: 03/09/17 21:15 Dose: 650 mg Al Hydrox/Mg Hydrox/Simethicone (Maalox) 30 ml PO Q4HR PRN PRN Reason: GI DISTRESS Stop: 05/06/17 22:08 Carvedilol (Coreg) 12.5 mg PO BID [facility] Stop: 05/07/17 16:59 Last Admin: 03/19/17 17:55 Dose: 12.5 mg Duloxetine HCl (Cymbalta) 120 mg PO DAILY DEVAUGHN PRN Reason: Protocol Stop: 05/16/17 11:34 Last Admin: 03/19/17 09:47 Dose: Not Given Enoxaparin Sodium (Lovenox) 40 mg SUBQ DAILY [facility]AUGHN Stop: 05/08/17 16:59 Last Admin: 03/19/17 09:49 Dose: 40 mg Ergocalciferol (Vitamin D) 50,000 iu PO We [facility] Stop: 05/08/17 09:59 Last Admin: 03/16/17 09:14 Dose: Not Given Gabapentin (Neurontin) 800 mg PO TID DEVAUGHN Stop: 05/07/17 20:59 Last Admin: 03/19/17 20:53 Dose: 800 mg Insulin Aspart (Novolog Insulin Sliding Scale) 0 units SUBQ ACHS DEVAUGHN PRN Reason: Protocol Stop: 05/06/17 22:15 Last Admin: 03/20/17 06:40 Dose: Not Given Magnesium Hydroxide (Milk Of Magnesia) 30 ml PO HS PRN PRN Reason: Constipation Mirtazapine (Remeron) 15 mg PO HS DEVAUGHN PRN Reason: Protocol Stop: 05/07/17 20:59 Last Admin: 03/19/17 20:55 Dose: 15 mg Multivitamins/Vitamin C (Theragran) 1 tab PO DAILY [facility]AUGHN Stop: 05/07/17 08:59 Last Admin: 03/19/17 09:51 Dose: Not Given Pantoprazole Sodium (Protonix) 40 mg PO QDAC [facility] Stop: 05/08/17 07:29 Last Admin: 03/20/17 06:39 Dose: 40 mg Tramadol HCl (Ultram) 50 mg PO Q4H PRN PRN Reason: Pain (Moderate) Stop: 05/07/17 15:17 Last Admin: 03/19/17 23:51 Dose: 50 mg Trazodone HCl (Desyrel) 100 mg PO HS [facility]AUGHN Stop: 05/07/17 20:59 Last Admin: 03/19/17 20:53 Dose: 100 mg General: No acute distress HEENT: Atraumatic Cardiovascular: Regular rate, Normal S1, Normal S2 Assessment/Plan - Plan Plan: as per psych will monitor cpm Nutritional Asmnt/Malnutr-PDOC - Dietary Evaluation Malnutrition Findings (Please click <Entered> for more info): Nutritional Asmnt/Malnutrition Start: 03/11/17 18: 24 Text: Status: Complete Freq: Document 03/11/17 18:24 [facility] (Rec: 03/11/17 18:33 [facility] [id number]) Nutritional Asmnt/Malnutrition Patient General Information Nutritional Screening Moderate Risk Screening Diagnosis Major depression Pertinent Medical Hx/Surgical Hx Depression, 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 Pt was resting during time of visit. No muscle or fat depletion assessed. Pt reports lack of appetite since hospitalization over two weeks ago. RD encouraged oral intake and asked for preferences. Pt asked for cheeseburger; food item honored for dinner. RD encouraged pt to participate in menu selections, pt verbalized understanding. Current Diet Order/ Nutrition Support CCHO-60 GM Patient / S.O Can Pertinent Medications Theragran, Protonix Pertinent Labs POC Glucose WNL. Nutritional Hx/Data Height 1.63 m Height (Calculated Centimeters) 162.6 Current Weight (lbs) 65.599 kg Weight (Calculated Kilograms) 65.6 Weight (Calculated Grams) 11352.5 Usual body Weight (lbs) 155 % Usual Body Weight 93 [place] Body Weight 120 % [place] Body Weight 121 Recent Weight Change Yes Weight Status Approriate GI Symptoms GI Symptoms Nausea Food Allergies No Usual diet at home Regular Skin Integrity/Comment: Carlos 19. No skin breakdown. Current %PO Negligible < 25% Estimated Nutritional Goals BEE in Kcals: Using Current wt Calories/Kcals/Kg Based on current wt 65.7 kg Kcals Calculated 2987-6681 kcals/day (25-30 kcals/kg) Protein: Using Current wt Protein g/kg: Based on current wt 65.7 kg Protein Calculated 66 gm/day (1 gm/kg) Fluid: ml 0222-8969 ml/day (1 ml/kcal) Nutritional Problem 1. Problem Problem Inadequate oral intake related to Etiology poor appetite, nausea, depression as evidenced by Signs/Symptoms: PO intake of 0-25%. Malnutrition Alert Protein-Calorie Malnutrition N/A Is there a minimum of two criteria No selected? Query Text:Check all the applicable criteria. A minimum of two criteria are recommended for diagnosis of either severe or non-severe malnutrition. Malnutrition Related to Morbid Obesity Malnutrition related to morbid obesity No Intervention/Recommendation Comments 1. Continue with current diet. [place] food preferences. Encourage pt to participate in menu selections. 2. If PO intake remains less than 50%, recommend Boost Glucose Control TID. 3. Recommend provide antiemetic medication prior to meals. Expected Outcomes/Goals Expected Outcomes/Goals Have pt consume at least 50% of meals. Physician Parameters for PEM Body Mass Index (BMI) 19 - 24 (Normal) Serum Albumin (g/dl) 3.1 - 3.4 (Mild)
[2017-03-20] MEDS: Enoxaparin 40 mg/0.4 mL 0.4mL Syr SUBQ SCH (15:05)
[2017-03-20] MEDS: Multivitamin Tab PO SCH (15:05)
--- NOTE | 2017-03-20 22:07 | Progress Notes ---
DATE: 03/20/2017 Case was discussed with staff of the patient, reviewed records. Covering for Dr. Crawford. The patient continues to isolate herself, stays in bed. She is compliant with the medication with no side effects from yesterday, she did take, later she have to. She is still having poor insight, unpredictable, impulsive, but in general, she is not complaining as much as she was before, also working on discharge plans and we will continue to work with the patient in group therapy, milieu therapy, adjust medication as needed. JOB# [id number]
--- NOTE | 2017-03-20 23:31 | Progress Notes ---
DATE: 03/19/2017 This is a late entry. Her chart seemed like it was not available yesterday, when I wanted to dictate. Case was discussed with staff of the patient, reviewed records. The patient continues to isolate herself and sleeping better, eating better, but she has multiple somatic complaints, stays in bed most of the time. She is unpredictable, impulsive, continues to be depressed. No side effects with the medication, no sedation, no nausea. We will continue to work with the patient in group therapy, milieu therapy, adjust medication as needed. JOB# [id number]
[2017-03-21] MEDS: Pantoprazole 40 mg EC Tab PO SCH (06:38)
[2017-03-21] MEDS: INSULIN ASPART SLIDING SCALE 100 UNITS/ML UNIT SUBQ SCH ×3 (06:39→21:00)
--- NOTE | 2017-03-21 12:57 | General Progress Note ---
Subjective - Review of Systems Events since last encounter: patient insolates self from other continues to be in a depressed mood no acute distress Objective - Results Result Diagrams: 03/08/17 11:00 03/08/17 11:00 Recent Labs: Laboratory Last Values WBC 5.5 Th/cmm (4.8-10.8) 03/08/17 11:00 RBC 4.04 Mil/cmm (3.80-5.10) 03/08/17 11:00 Hgb 12.0 gm/dL (11.7-15.5) 03/08/17 11:00 Hct 35.3 % (35.0-45.0) 03/08/17 11:00 MCV 87.3 fl (81-100) 03/08/17 11:00 MCH 29.8 pg (27.0-31.0) 03/08/17 11:00 MCHC Differential 34.1 pg (28.0-36.0) 03/08/17 11:00 RDW 14.4 % (11.5-20.0) 03/08/17 11:00 Plt Count 242 Th/cmm (150-400) 03/08/17 11:00 MPV 5.9 fl 03/08/17 11:00 Neutrophils % 75.9 % (40.0-80.0) 03/08/17 11:00 Lymphocytes % 13.0 % (20.0-50.0) L 03/08/17 11:00 Monocytes % 8.3 % (2.0-10.0) 03/08/17 11:00 Eosinophils % 1.5 % (0.0-5.0) 03/08/17 11:00 Basophils % 1.3 % (0.0-2.0) 03/08/17 11:00 Sodium 134 mEq/L (136-145) L 03/08/17 11:00 Potassium 3.5 mEq/L (3.5-5.1) 03/08/17 11:00 Chloride 96 mEq/L (98-107) L 03/08/17 11:00 Carbon Dioxide 24.5 mEq/L (21.0-31.0) 03/08/17 11:00 Anion Gap 17.0 (7.0-16.0) H 03/08/17 11:00 BUN 7 mg/dL (7-25) 03/08/17 11:00 Creatinine 0.7 mg/dL (0.6-1.2) 03/08/17 11:00 Est GFR ( Amer) > 60.0 ml/min (>90) 03/08/17 11:00 Est GFR (Non-Af Amer) > 60.0 ml/min 03/08/17 11:00 BUN/Creatinine Ratio 10.0 03/08/17 11:00 Glucose 157 mg/dL (70-105) H 03/08/17 11:00 POC Glucose 175 MG/DL (70 - 105) H 03/21/17 12:04 Calcium 9.3 mg/dL (8.6-10.3) 03/08/17 11:00 Total Bilirubin 0.6 mg/dL (0.3-1.0) 03/08/17 11:00 AST 15 U/L (13-39) 03/08/17 11:00 ALT 15 U/L (7-52) 03/08/17 11:00 Alkaline Phosphatase 50 U/L (34-104) 03/08/17 11:00 Total Protein 5.9 gm/dL (6.0-8.3) L 03/08/17 11:00 Albumin 3.4 gm/dL (3.7-5.3) L 03/08/17 11:00 Globulin 2.5 gm/dL 03/08/17 11:00 Albumin/Globulin Ratio 1.4 (1.0-1.8) 03/08/17 11:00 - Physical Exam Vitals and I&O: Vital Signs Temp 0 F 03/21/17 06:29 Pulse 62 03/20/17 20:07 Resp 20 03/20/17 20:07 BP 147/81 03/20/17 20:07 Pulse Ox 97 03/20/17 20:07 Intake & Output 03/20/17 03/21/17 03/21/17 18:59 06:59 18:59 Intake Total 40 Balance 40 Intake: Oral 40 Other: # Voids 3 # Bowel Movements 0 Active Medications: Current Medications Acetaminophen (Tylenol) 650 mg PO Q4HR PRN PRN Reason: Mild Pain / Temp above 100 Stop: 05/06/17 22:08 Last Admin: 03/09/17 21:15 Dose: 650 mg Al Hydrox/Mg Hydrox/Simethicone (Maalox) 30 ml PO Q4HR PRN PRN Reason: GI DISTRESS Stop: 05/06/17 22:08 Carvedilol (Coreg) 12.5 mg PO BID [facility] Stop: 05/07/17 16:59 Last Admin: 03/20/17 17:31 Dose: Not Given Duloxetine HCl (Cymbalta) 120 mg PO DAILY DEVAUGHN PRN Reason: Protocol Stop: 05/16/17 11:34 Last Admin: 03/21/17 08:14 Dose: 120 mg Enoxaparin Sodium (Lovenox) 40 mg SUBQ DAILY [facility]AUGHN Stop: 05/08/17 16:59 Last Admin: 03/20/17 15:05 Dose: Not Given Ergocalciferol (Vitamin D) 50,000 iu PO We [facility] Stop: 05/08/17 09:59 Last Admin: 03/16/17 09:14 Dose: Not Given Gabapentin (Neurontin) 800 mg PO TID [facility]GHN Stop: 05/07/17 20:59 Last Admin: 03/20/17 21:15 Dose: Not Given Insulin Aspart (Novolog Insulin Sliding Scale) 0 units SUBQ ACHS DEVAUGHN PRN Reason: Protocol Stop: 05/06/17 22:15 Last Admin: 03/21/17 06:39 Dose: Not Given Magnesium Hydroxide (Milk Of Magnesia) 30 ml PO HS PRN PRN Reason: Constipation Mirtazapine (Remeron) 15 mg PO HS [facility]AUGHN PRN Reason: Protocol Stop: 05/07/17 20:59 Last Admin: 03/20/17 21:15 Dose: 15 mg Multivitamins/Vitamin C (Theragran) 1 tab PO DAILY [facility] Stop: 05/07/17 08:59 Last Admin: 03/20/17 15:05 Dose: Not Given Pantoprazole Sodium (Protonix) 40 mg PO QDAC [facility]AUGHN Stop: 05/08/17 07:29 Last Admin: 03/21/17 06:38 Dose: Not Given Tramadol HCl (Ultram) 50 mg PO Q4H PRN PRN Reason: Pain (Moderate) Stop: 05/07/17 15:17 Last Admin: 03/21/17 08:13 Dose: 50 mg Trazodone HCl (Desyrel) 100 mg PO HS [facility] Stop: 05/07/17 20:59 Last Admin: 03/20/17 21:15 Dose: 100 mg General: No acute distress HEENT: Atraumatic Cardiovascular: Regular rate, Normal S1, Normal S2 Assessment/Plan - Plan Plan: as per psych will monitor cpm Nutritional Asmnt/Malnutr-PDOC - Dietary Evaluation Malnutrition Findings (Please click <Entered> for more info): Nutritional Asmnt/Malnutrition Start: 03/11/17 18: 24 Text: Status: Complete Freq: Document 03/11/17 18:24 [facility] (Rec: 03/11/17 18:33 [facility] [id number]) Nutritional Asmnt/Malnutrition Patient General Information Nutritional Screening Moderate Risk Screening Diagnosis Major depression Pertinent Medical Hx/Surgical Hx Depression, 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 Pt was resting during time of visit. No muscle or fat depletion assessed. Pt reports lack of appetite since hospitalization over two weeks ago. RD encouraged oral intake and asked for preferences. Pt asked for cheeseburger; food item honored for dinner. RD encouraged pt to participate in menu selections, pt verbalized understanding. Current Diet Order/ Nutrition Support CCHO-60 GM Patient / S.O Can Pertinent Medications Theragran, Protonix Pertinent Labs POC Glucose WNL. Nutritional Hx/Data Height 1.63 m Height (Calculated Centimeters) 162.6 Current Weight (lbs) 65.599 kg Weight (Calculated Kilograms) 65.6 Weight (Calculated Grams) 61287.5 Usual body Weight (lbs) 155 % Usual Body Weight 93 [place] Body Weight 120 % [place] Body Weight 121 Recent Weight Change Yes Weight Status Approriate GI Symptoms GI Symptoms Nausea Food Allergies No Usual diet at home Regular Skin Integrity/Comment: [place] 19. No skin breakdown. Current %PO Negligible < 25% Estimated Nutritional Goals BEE in Kcals: Using Current wt Calories/Kcals/Kg Based on current wt 65.7 kg Kcals Calculated 5218-6330 kcals/day (25-30 kcals/kg) Protein: Using Current wt Protein g/kg: Based on current wt 65.7 kg Protein Calculated 66 gm/day (1 gm/kg) Fluid: ml 8293-0808 ml/day (1 ml/kcal) Nutritional Problem 1. Problem Problem Inadequate oral intake related to Etiology poor appetite, nausea, depression as evidenced by Signs/Symptoms: PO intake of 0-25%. Malnutrition Alert Protein-Calorie Malnutrition N/A Is there a minimum of two criteria No selected? Query Text:Check all the applicable criteria. A minimum of two criteria are recommended for diagnosis of either severe or non-severe malnutrition. Malnutrition Related to Morbid Obesity Malnutrition related to morbid obesity No Intervention/Recommendation Comments 1. Continue with current diet. [place] food preferences. Encourage pt to participate in menu selections. 2. If PO intake remains less than 50%, recommend Boost Glucose Control TID. 3. Recommend provide antiemetic medication prior to meals. Expected Outcomes/Goals Expected Outcomes/Goals Have pt consume at least 50% of meals. Physician Parameters for PEM Body Mass Index (BMI) 19 - 24 (Normal) Serum Albumin (g/dl) 3.1 - 3.4 (Mild)
[2017-03-21] MEDS: Enoxaparin 40 mg/0.4 mL 0.4mL Syr SUBQ SCH (15:14)
[2017-03-21] MEDS: Multivitamin Tab PO SCH (15:15)
--- NOTE | 2017-03-22 00:31 | Progress Notes ---
DATE: 03/21/2017 Case was discussed with staff of the patient, reviewed records. The patient continues to stay in bed. She reports she is in pain. She reported that she is not hearing voices or seeing things. She denies any current intent to harm herself or anybody. She denies any auditory or visual hallucinations; is sleeping better, eating better. No side effects from the medication. No sedation, no nausea. I will consult the medical doctor to address her pain issue. I did increase her Cymbalta to a maximum dose of 120 mg a day. She is on Remeron 50 mg at bedtime with no side effects, no sedation, no nausea, and no extrapyramidal symptoms. She is also on Neurontin for pain. We will continue the patient in group therapy, milieu therapy, and adjust medication as needed. JOB# [id number]
[2017-03-22] MEDS: INSULIN ASPART SLIDING SCALE 100 UNITS/ML UNIT SUBQ SCH ×4 (06:51→20:57)
[2017-03-22] MEDS: Pantoprazole 40 mg EC Tab PO SCH (06:53)
[2017-03-22] MEDS: Enoxaparin 40 mg/0.4 mL 0.4mL Syr SUBQ SCH (09:01)
[2017-03-22] MEDS: Multivitamin Tab PO SCH (09:02)
--- NOTE | 2017-03-22 15:23 | General Progress Note ---
Subjective - Review of Systems Events since last encounter: no distress patient awake ,alert Objective - Results Result Diagrams: 03/08/17 11:00 03/08/17 11:00 Recent Labs: Laboratory Last Values WBC 5.5 Th/cmm (4.8-10.8) 03/08/17 11:00 RBC 4.04 Mil/cmm (3.80-5.10) 03/08/17 11:00 Hgb 12.0 gm/dL (11.7-15.5) 03/08/17 11:00 Hct 35.3 % (35.0-45.0) 03/08/17 11:00 MCV 87.3 fl (81-100) 03/08/17 11:00 MCH 29.8 pg (27.0-31.0) 03/08/17 11:00 MCHC Differential 34.1 pg (28.0-36.0) 03/08/17 11:00 RDW 14.4 % (11.5-20.0) 03/08/17 11:00 Plt Count 242 Th/cmm (150-400) 03/08/17 11:00 MPV 5.9 fl 03/08/17 11:00 Neutrophils % 75.9 % (40.0-80.0) 03/08/17 11:00 Lymphocytes % 13.0 % (20.0-50.0) L 03/08/17 11:00 Monocytes % 8.3 % (2.0-10.0) 03/08/17 11:00 Eosinophils % 1.5 % (0.0-5.0) 03/08/17 11:00 Basophils % 1.3 % (0.0-2.0) 03/08/17 11:00 Sodium 134 mEq/L (136-145) L 03/08/17 11:00 Potassium 3.5 mEq/L (3.5-5.1) 03/08/17 11:00 Chloride 96 mEq/L (98-107) L 03/08/17 11:00 Carbon Dioxide 24.5 mEq/L (21.0-31.0) 03/08/17 11:00 Anion Gap 17.0 (7.0-16.0) H 03/08/17 11:00 BUN 7 mg/dL (7-25) 03/08/17 11:00 Creatinine 0.7 mg/dL (0.6-1.2) 03/08/17 11:00 Est GFR ( Amer) > 60.0 ml/min (>90) 03/08/17 11:00 Est GFR (Non-Af Amer) > 60.0 ml/min 03/08/17 11:00 BUN/Creatinine Ratio 10.0 03/08/17 11:00 Glucose 157 mg/dL (70-105) H 03/08/17 11:00 POC Glucose 129 MG/DL (70 - 105) H 03/22/17 11:33 Calcium 9.3 mg/dL (8.6-10.3) 03/08/17 11:00 Total Bilirubin 0.6 mg/dL (0.3-1.0) 03/08/17 11:00 AST 15 U/L (13-39) 03/08/17 11:00 ALT 15 U/L (7-52) 03/08/17 11:00 Alkaline Phosphatase 50 U/L (34-104) 03/08/17 11:00 Total Protein 5.9 gm/dL (6.0-8.3) L 03/08/17 11:00 Albumin 3.4 gm/dL (3.7-5.3) L 03/08/17 11:00 Globulin 2.5 gm/dL 03/08/17 11:00 Albumin/Globulin Ratio 1.4 (1.0-1.8) 03/08/17 11:00 - Physical Exam Vitals and I&O: Vital Signs Temp 97.6 F 03/22/17 06:25 Pulse 80 03/22/17 06:25 Resp 20 03/22/17 06:25 BP 149/93 03/22/17 06:25 Pulse Ox 97 03/22/17 06:25 Intake & Output 03/21/17 03/22/17 03/22/17 18:59 06:59 18:59 Intake Total 600 360 Balance 600 360 Intake: Oral 600 360 Other: # Voids 3 2 # Bowel Movements 0 0 Active Medications: Current Medications Acetaminophen (Tylenol) 650 mg PO Q4HR PRN PRN Reason: Mild Pain / Temp above 100 Stop: 05/06/17 22:08 Last Admin: 03/09/17 21:15 Dose: 650 mg Al Hydrox/Mg Hydrox/Simethicone (Maalox) 30 ml PO Q4HR PRN PRN Reason: GI DISTRESS Stop: 05/06/17 22:08 Carvedilol (Coreg) 12.5 mg PO BID [facility] Stop: 05/07/17 16:59 Last Admin: 03/22/17 09:01 Dose: Not Given Duloxetine HCl (Cymbalta) 120 mg PO DAILY DEVAUGHN PRN Reason: Protocol Stop: 05/16/17 11:34 Last Admin: 03/22/17 09:01 Dose: Not Given Enoxaparin Sodium (Lovenox) 40 mg SUBQ DAILY [facility] Stop: 05/08/17 16:59 Last Admin: 03/22/17 09:01 Dose: Not Given Ergocalciferol (Vitamin D) 50,000 iu PO We [facility] Stop: 05/08/17 09:59 Last Admin: 03/16/17 09:14 Dose: Not Given Gabapentin (Neurontin) 800 mg PO TID [facility] Stop: 05/07/17 20:59 Last Admin: 03/22/17 14:26 Dose: 800 mg Insulin Aspart (Novolog Insulin Sliding Scale) 0 units SUBQ ACHS [facility]GHN PRN Reason: Protocol Stop: 05/06/17 22:15 Last Admin: 03/22/17 11:38 Dose: Not Given Magnesium Hydroxide (Milk Of Magnesia) 30 ml PO HS PRN PRN Reason: Constipation Mirtazapine (Remeron) 15 mg PO HS [facility]AUGHN PRN Reason: Protocol Stop: 05/07/17 20:59 Last Admin: 03/21/17 20:48 Dose: Not Given Multivitamins/Vitamin C (Theragran) 1 tab PO DAILY [facility]AUGHN Stop: 05/07/17 08:59 Last Admin: 03/22/17 09:02 Dose: Not Given Pantoprazole Sodium (Protonix) 40 mg PO QDAC [facility] Stop: 05/08/17 07:29 Last Admin: 03/22/17 06:53 Dose: Not Given Tramadol HCl (Ultram) 50 mg PO Q4H PRN PRN Reason: Pain (Moderate) Stop: 05/07/17 15:17 Last Admin: 03/22/17 14:26 Dose: 50 mg Trazodone HCl (Desyrel) 100 mg PO HS [facility]AUGHN Stop: 05/07/17 20:59 Last Admin: 03/21/17 20:48 Dose: Not Given General: No acute distress HEENT: Atraumatic Cardiovascular: Regular rate, Normal S1, Normal S2 Assessment/Plan - Plan Plan: as per psych will monitor cpm Nutritional Asmnt/Malnutr-PDOC - Dietary Evaluation Malnutrition Findings (Please click <Entered> for more info): Nutritional Asmnt/Malnutrition Start: 03/11/17 18: 24 Text: Status: Complete Freq: Document 03/11/17 18:24 [facility] (Rec: 03/11/17 18:33 [facility] [id number]) Nutritional Asmnt/Malnutrition Patient General Information Nutritional Screening Moderate Risk Screening Diagnosis Major depression Pertinent Medical Hx/Surgical Hx Depression, 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 Pt was resting during time of visit. No muscle or fat depletion assessed. Pt reports lack of appetite since hospitalization over two weeks ago. RD encouraged oral intake and asked for preferences. Pt asked for cheeseburger; food item honored for dinner. RD encouraged pt to participate in menu selections, pt verbalized understanding. Current Diet Order/ Nutrition Support CCHO-60 GM Patient / S.O Can Pertinent Medications Theragran, Protonix Pertinent Labs POC Glucose WNL. Nutritional Hx/Data Height 1.63 m Height (Calculated Centimeters) 162.6 Current Weight (lbs) 65.599 kg Weight (Calculated Kilograms) 65.6 Weight (Calculated Grams) 75496.5 Usual body Weight (lbs) 155 % Usual Body Weight 93 [place] Body Weight 120 % [place] Body Weight 121 Recent Weight Change Yes Weight Status Approriate GI Symptoms GI Symptoms Nausea Food Allergies No Usual diet at home Regular Skin Integrity/Comment: Carlos 19. No skin breakdown. Current %PO Negligible < 25% Estimated Nutritional Goals BEE in Kcals: Using Current wt Calories/Kcals/Kg Based on current wt 65.7 kg Kcals Calculated 4140-1975 kcals/day (25-30 kcals/kg) Protein: Using Current wt Protein g/kg: Based on current wt 65.7 kg Protein Calculated 66 gm/day (1 gm/kg) Fluid: ml 0696-5610 ml/day (1 ml/kcal) Nutritional Problem 1. Problem Problem Inadequate oral intake related to Etiology poor appetite, nausea, depression as evidenced by Signs/Symptoms: PO intake of 0-25%. Malnutrition Alert Protein-Calorie Malnutrition N/A Is there a minimum of two criteria No selected? Query Text:Check all the applicable criteria. A minimum of two criteria are recommended for diagnosis of either severe or non-severe malnutrition. Malnutrition Related to Morbid Obesity Malnutrition related to morbid obesity No Intervention/Recommendation Comments 1. Continue with current diet. [place] food preferences. Encourage pt to participate in menu selections. 2. If PO intake remains less than 50%, recommend Boost Glucose Control TID. 3. Recommend provide antiemetic medication prior to meals. Expected Outcomes/Goals Expected Outcomes/Goals Have pt consume at least 50% of meals. Physician Parameters for PEM Body Mass Index (BMI) 19 - 24 (Normal) Serum Albumin (g/dl) 3.1 - 3.4 (Mild)
--- NOTE | 2017-03-23 00:11 | Progress Notes ---
DATE: 03/22/2017 Case was discussed with staff of the patient, reviewed records. The patient continues to stay in bed, continues to have poor insight. Continues to be isolating herself. She denies any current intent to harm herself or anybody. Denies any auditory or visual hallucination or paranoia. Denies any side effects. When I asked her if she needs to stay longer, she said the only to rest, but that does not seem likely that there is nothing more that could be done at this point, so I do have plan to discharge her tomorrow. I advised her to try to get out of bed and with other people interact. We will start patient in group therapy, milieu therapy, adjust medication as needed. [facility]# [id number]
[2017-03-23] MEDS: Pantoprazole 40 mg EC Tab PO SCH (06:41)
[2017-03-23] MEDS: INSULIN ASPART SLIDING SCALE 100 UNITS/ML UNIT SUBQ SCH ×2 (06:59→12:21)
[2017-03-23] MEDS: Multivitamin Tab PO SCH ×2 (09:43→09:55)
[2017-03-23] MEDS: Enoxaparin 40 mg/0.4 mL 0.4mL Syr SUBQ SCH (09:44)
--- NOTE | 2017-03-23 23:29 | Discharge Summary ---
DATE OF DISCHARGE: 03/23/2017 IDENTIFYING INFORMATION: The patient is a 61-year-old female. HISTORY OF PRESENT ILLNESS: This patient is a patient of Dr. Crawford. He evaluated her on 03/08/2017. She has been living at home with her mother, has been depressed, has been having thoughts of suicide with plan to overdose on pills. She was seen in [facility] and transferred to [facility]. Chart reviewed and the patient interviewed by Dr. Crawford. The patient said that she has been feeling depressed because of increasing pain. The patient has been complaining of severe back pain. She has been taking some pain medications. She said that she has been feeling hopeless and helpless. She also has been interacting minimally with thoughts of suicide, thoughts about her desire to overdose on pills. She has a history of depression. The patient was taking Zoloft. She denies any history of prior psychiatric hospitalization COURSE IN THE HOSPITAL: Dr. Crawford who was the treating doctor started the patient on Cymbalta, and I did increase the dose myself to 120 mg a day. She was continued with her medication, which is Lovenox and vitamin D3. She was also given Neurontin by Dr. Stroud. The dose was increased to 800 mg 3 times a day. She was on insulin for diabetes, magnesium hydrochloride as needed and Remeron was added from the beginning by Dr. Stroud of 50 mg at bedtime, multivitamin, pantoprazole. She was given tramadol for pain, trazodone for sleep 100 mg at bedtime. The patient progressively got better. The staff report that she tended to act out in a way where she would throw herself on the floor, but she is no longer acting that way. She mainly stays in bed. When I talked to her few times in the past few days, she was in denial about any intent to harm herself or anybody. She was sleeping well, eating well. When I asked her about what needed to be done to help her to feel better, she said she just needed to relax. She denies that she wants to harm herself. Since patient was doing well, her hold expires today and the only reason that would keep her for grave disability, which is not as she does have a placement at [facility], the patient was discharged to a lesser level of care. CONDITION UPON DISCHARGE: The patient was appropriately dressed. No depression. No anxiety. She is sleeping well, eating well. No suicidal ideation. No homicidal ideation. No paranoia. FINAL DIAGNOSES: AXIS I: Major depression, recurrent, severe with no psychosis. MEDICAL DIAGNOSIS: Deferred to Dr. Stroud. The patient will be going to [facility]. She will follow up with the psychiatrist, primary care physician and therapist. The patient will be seen by Dr. Crawford or ___ at [facility]. EXPECTED OUTCOME: Stable if the patient complies with the above. JOB# [id number]
== END 2017-03-23 13:55 | DRG 885 ==
LOC: GERO 21:10
PROVIDERS: ADMIT Psychiatry & Neurology Psychiatry; ATTEND Psychiatry & Neurology Psychiatry
DX: F33.2 Major depressive disorder, recurrent severe without psychotic features (principal); E11.40 Type 2 diabetes mellitus with diabetic neuropathy, unspecified; R56.9 Unspecified convulsions; G89.29 Other chronic pain; M54.9 Dorsalgia, unspecified; I10 Essential (primary) hypertension; E55.9 Vitamin D deficiency, unspecified; K21.9 Gastro-esophageal reflux disease without esophagitis; M19.90 Unspecified osteoarthritis, unspecified site; Z87.820 Personal history of traumatic brain injury; Z95.0 Presence of cardiac pacemaker
CPT/HCPCS: 36415-UA; 70450-TC; 71010-TC; 80053-TC; 82948-90; 85025-TC; 95816-TC; J1650; J1815; Z7610

== ENCOUNTER 2017-03-27 22:23 | Inpatient (IN) | payer MEDICARE ==
[2017-03-27 22:52] LABS: % BASOPHILS 1.6 % (0.0-2.0); % LYMPHOCYTES 24.1 % (20.0-50.0); % MONOCYTES 8.3 % (2.0-10.0); MEAN CELL VOLUME 87.5 fl (81-100); MEAN CORPUSCULAR HEMOGLOBIN 29.3 pg (27.0-31.0); MEAN CORPUSCULAR HGB CONC 33.5 pg (28.0-36.0); MEAN PLATELET VOLUME 7.2 fl; NEUTROPHILE ABSOLUTE 3.9 Th/cmm (1.8-8.0); PLATELET COUNT 289 Th/cmm (150-400); RED BLOOD COUNT 4.88 Mil/cmm (3.80-5.10); RED CELL DISTRIBUTION WIDTH 15.2 % (11.5-20.0)
[2017-03-27 22:55] LABS: HEMATOCRIT 42.6 % (35.0-45.0); HEMOGLOBIN 14.3 gm/dL (11.7-15.5)
--- NOTE | 2017-03-27 22:57 | ED Physician Chart ---
Chief Complaint/HPI - Patient Information Date Seen:: 03/27/17 Time Seen:: 22:45 Chief Complaint:: Pt has been refusing food and medications. History of Present Illness:: Brought in by ambulance for the above reason. Pt appears to be comfortable and not in distress. Pt denies any LYNN. No N/V/D. No abdominal pain or discomfort. Pt is not fully cooperative; thus, H & P are limited. Allergies:: Allergies Allergy/AdvReac Type Severity Reaction Status Date / Time No Known Allergies Allergy Verified 03/07/17 21:52 Vitals:: Vital Signs - 8 hr 03/27/17 22:38 Temp 97.6 F HR 89 RR 16 BP 139/95 O2 Sat % 99 Historian:: Patient, Medical Records (from transferring facility.) Family MD/PCP:: Dr. Stroud LMP:: Postmenopausal. Review:: Nurse's Note Reviewed, Transfer documents Reviewed Review of Systems - Review of Systems General/Constitutional: No fever, No chills, No weight loss, No weakness, No diaphoresis, No edema, Loss of appetite Skin: No rash, No bruising Head: No headache, No light-headedness Eyes: No loss of vision, No pain, No diplopia ENT: No earache, No nasal drainage, No sore throat, No tinnitus Neck: No neck pain, No swelling, No stiffness Cardio Vascular: No chest pain, No palpitations, No edema Pulmonary: No SOB, No cough, No wheezing GI: No nausea, No vomiting, No diarrhea, No pain G/U: No dysuria, No frequency, No hematuria Machine Tool Mechanic: No vaginal discharge, No abnormal vaginal bleed Musculoskeletal: No bone or joint pain, No back pain, No muscle pain Endocrine: No polyuria, No polydipsia Psychiatric: Prior psych history, Depression, No anxiety, No suicidal ideation, No homicidal ideation, No auditory hallucination, No visual hallucination Hematopoietic: No bruising, No lymphadenopathy Allergic/Immuno: No urticaria, No angioedema Neurological: No syncope, No focal symptoms, No weakness, No paresthesia, No headache, No dizziness, No confusion Past Medical History - Past Medical History Past Medical History: HTN, DM, PUD/GERD Family History: Diabetes Melitus (mother) Social History: Non Smoker, No Alcohol, No Drug Use, , Care Facility Employment:: Retired. Surgical History: None Psychiatricy History: Depression Medication: Reviewed Family Medical History - Family Member Mother History Unknown: Yes Physical Exam - Physical Examination General/Constitutional: Awake, Well-developed, well-nourished, Alert, No distress, Non-toxic appearing Other Gen/Cons comments:: Breathes comfortably, speaks clearly, and interacts normally. Head: Atraumatic Eyes: Lids, conjuctiva normal, PERRL, EOMI Skin: Nl inspection, No rash, No skin lesions, No ecchymosis, No lymphadenopathy ENMT: External ears, nose nl, Nasal exam nl, Oropharynx nl Other ENMT comments:: Mucous membrane is slightly dry. Neck: Nontender, Full ROM w/o pain, No JVD, No nuchal rigidity, No stridor Respiratory: Nl effort/Exclusion, Clear to Auscultation, No Wheeze/Rhonchi/Rales Cardio Vascular: RRR, No murmur, gallop, rubs GI: No tenderness/rebounding/guarding, No organomegaly, No hernia, Normal BS's, Nondistended : No CVA tenderness Extremities: No tenderness or effusion, Full ROM, normal strength in all extremities, No edema Neuro/Psych: Alert/oriented (oriented x 3), No focal deficits Other Neuro/Psych comments:: Pt has flat affect. Labs/Radiology/EKG Results - Lab Results Results: Laboratory Tests 03/27/17 03/27/17 03/27/17 22:42 22:42 22:42 WBC 6.0 RBC 4.88 Hgb 14.3 D Hct 42.6 D MCV 87.5 MCH 29.3 MCHC Differential 33.5 RDW 15.2 Plt Count 289 MPV 7.2 Neutrophils % 65.0 Lymphocytes % 24.1 Monocytes % 8.3 Eosinophils % 1.0 Basophils % 1.6 PT 10.0 INR 0.96 PTT (Actin FS) 29.6 Sodium 130 L Potassium 3.0 L Chloride 94 L Carbon Dioxide 18.8 L Anion Gap 20.2 H BUN 21 Creatinine 1.2 Est GFR ( Amer) 58.4 Est GFR (Non-Af Amer) 48.2 BUN/Creatinine Ratio 17.5 Glucose 214 H Calcium 10.4 H Total Bilirubin 0.8 AST 14 ALT 7 Alkaline Phosphatase 65 Creatine Kinase Troponin I Total Protein 7.3 Albumin 4.2 Globulin 3.1 Albumin/Globulin Ratio 1.4 03/27/17 03/27/17 22:42 22:42 WBC RBC Hgb Hct MCV MCH MCHC Differential RDW Plt Count MPV Neutrophils % Lymphocytes % Monocytes % Eosinophils % Basophils % PT INR PTT (Actin FS) Sodium Potassium Chloride Carbon Dioxide Anion Gap BUN Creatinine Est GFR ( Amer) Est GFR (Non-Af Amer) BUN/Creatinine Ratio Glucose Calcium Total Bilirubin AST ALT Alkaline Phosphatase Creatine Kinase 22 L Troponin I 0.02 Total Protein Albumin Globulin Albumin/Globulin Ratio Urinalysis, lactic acid and magnesium levels are pending. - EKG Interpretations EKG Time:: 22:49 Rate & Rhythm: NSR with VR 76 Comments:: LBBB;otherwise, no acute ischemic changes. ED Septic Shock - . Is Septic Shock (SBP<90, OR Lactate>4 mmol\L) present?: No - <6hrs of presentation: Vital Signs: Vital Signs - 8 hr 03/27/17 22:38 Temp 97.6 F HR 89 RR 16 BP 139/95 O2 Sat % 99 Reassessment (Disposition) - Reassessment Reassessment:: 2352 Lab results just became available. Case was discussed with Dr. Stroud with pertinent H & P, EKG, and available lab findings reviewed. Dr. Stroud concurred with present management. He decided to admit pt to [facility] under his care. He assumed care of pt from here on and will follow on pending lab results. Pt remains stable and overall comfortable. EKG and lab findings have also been reviewed with pt. Management plan has been discussed. - Diagnosis Diagnosis:: Refusal of food and medical therapy related to depressed mood. Dehydration. Hyponatremia. Hypokalemia. Diabetes mellitus. - Patient Disposition Admitted to:: Telemetry Admitting Medical Physician:: Robina Stroud Time:: 23:55 Condition at Disposition:: Stable, Improved
[2017-03-27 23:05] LABS: ALB/GLOB RATIO 1.4 (1.0-1.8); ANION GAP 20.2 (7.0-16.0); BILIRUBIN,TOTAL 0.8 mg/dL (0.3-1.0); BUN/CREATININE RATIO 17.5; CALCIUM SERUM 10.4 mg/dL (8.6-10.3); CARBON DIOXIDE 18.8 mEq/L (21.0-31.0); CREATININE - SERUM 1.2 mg/dL (0.6-1.2)
[2017-03-27 23:09] LABS: INR 0.96 (0.5-1.4)
[2017-03-27] MEDS ORDERED: Sodium Chloride 0.9% 1,000 ML IV ONE (23:41)
[2017-03-27] MEDS ORDERED: Potassium Chloride 20 mEq ER Tab PO ONE ×2 (23:43→23:48)
[2017-03-27] MEDS ORDERED: Magnesium Hydroxide (MOM) 30 mL UDC PO PRN (23:50)
[2017-03-27] MEDS ORDERED: Maalox 30 mL Cup PO PRN (23:50)
[2017-03-28] MEDS: Sodium Chloride 0.9% 1,000 ML IV SCH (00:56)
[2017-03-28 00:58] VITALS: BP 140/74
[2017-03-28 05:58] LABS: % BASOPHILS 0.4 % (0.0-2.0); % EOSINOPHILS 1.2 % (0.0-5.0); % LYMPHOCYTES 22.6 % (20.0-50.0); % MONOCYTES 7.3 % (2.0-10.0); % NEUTROPHILS 68.5 % (40.0-80.0); HEMOGLOBIN 12.6 gm/dL (11.7-15.5); MEAN CELL VOLUME 87.4 fl (81-100); MEAN CORPUSCULAR HEMOGLOBIN 29.7 pg (27.0-31.0); NEUTROPHILE ABSOLUTE 3.4 Th/cmm (1.8-8.0); PLATELET COUNT 238 Th/cmm (150-400); RED BLOOD COUNT 4.26 Mil/cmm (3.80-5.10); RED CELL DISTRIBUTION WIDTH 15.1 % (11.5-20.0)
[2017-03-28 06:10] LABS: HEMATOCRIT 37.2 % (35.0-45.0)
[2017-03-28 06:27] LABS: ANION GAP 19.2 (7.0-16.0); BUN - UREA NITROGEN 22 mg/dL (7-25); CARBON DIOXIDE 18.2 mEq/L (21.0-31.0); CHLORIDE 100 mEq/L (98-107); CHOLESTEROL 226 mg/dL (<200); GLUCOSE 246 mg/dL (70-105); POTASSIUM SERUM 3.4 mEq/L (3.5-5.1); SODIUM SERUM 134 mEq/L (136-145); TRIGLYCERIDES 321 mg/dL (<150)
[2017-03-28] MEDS: Pantoprazole 40 mg EC Tab PO SCH (08:31)
[2017-03-28] MEDS: Multivitamin Tab PO SCH (08:32)
[2017-03-28] MEDS: Enoxaparin 40 mg/0.4 mL 0.4mL Syr SUBQ SCH (08:32)
[2017-03-28] MEDS: INSULIN ASPART SLIDING SCALE 100 UNITS/ML UNIT SUBQ SCH ×3 (11:45→21:40)
--- NOTE | 2017-03-28 14:36 | History & Physical ---
ADMIT DATE: 03/28/2017 HISTORY OF PRESENT ILLNESS: The patient at the senior care apparently developed syncopal episode, was very lethargic, was brought into the Emergency Room, was seen in the [facility] and was admitted for dehydration and altered level of consciousness, history of syncope. The patient very depressed, not wanting to eat. The patient has no rash, no bruising, no swelling, no cough. No polyuria or polydipsia. SYSTEMS REVIEW: Otherwise, negative. PAST MEDICAL HISTORY: Hypertension, diabetes, peptic ulcer disease. FAMILY HISTORY: Unremarkable. PHYSICAL EXAMINATION: GENERAL: Alert, oriented female, seems to be little depressed. HEAD: Normal. ENT: Normal. LUNGS: Clear. CARDIOVASCULAR SYSTEM: S1, S2 heard. ABDOMEN: Soft. Bowel sounds are heard. LABORATORY DATA: Sodium was low at 130, potassium was low at 3.0 and CO2 was 18 indicating some acidosis. BUN and creatinine normal are 21 and 1.2. EKG showed sinus rhythm, no ST-T changes. DIAGNOSES: 1. Dehydration. 2. ____. 3. Hyponatremia. 4. Hypokalemia. 5. Diabetes. 6. History of psychotic disorder with underlying ____ schizophrenia. 7. History of severe depression. PLAN: The patient is being admitted. I will go ahead and give her IV fluids. We will have Dr. Darren Humphries see the patient for syncope and will have Dr. Crawford see the patient and I will follow the patient and correct her electrolyte imbalance. JOB# [id number]
--- NOTE | 2017-03-28 14:54 | Consultation ---
DATE OF CONSULTATION: 03/28/[address] Stroud. HISTORY AND PHYSICAL: This is a 61-year-old female patient who apparently has not been eating or drinking and refuses all the medications. 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 The patient has resulted in cognitive decline, memory loss. PAST MEDICAL HISTORY: The patient has a history of traumatic head injury, hypokalemia, altered level of consciousness, hypertension, major depression, diabetes mellitus, type 2, GERD, peripheral neuropathy secondary to diabetes. FAMILY HISTORY: Unremarkable. SOCIAL HISTORY: No history of smoking, alcohol abuse. ALLERGIES: None. PHYSICAL EXAMINATION: VITAL SIGNS: Blood pressure 130/80, pulse 70, respirations 20. HEAD: Normocephalic. No lumps or bumps. EYES: Pupils equal, reactive to light. Fundi show AV nicking, sclerae white, conjunctivae pink. NECK: Carotid 2+. Normal upstroke. JVD flat. Thyroid not palpable. Lymph nodes not palpable. CHEST: Shows increased AP diameter. No kyphosis, scoliosis. LUNGS: Bilateral vesicular breath sounds. HEART: PMI in fifth intercostal space lateral to midclavicular line. S1, S2. No S3, S4. Systolic murmur, grade 2/6, lower left sternal border without radiation. ABDOMEN: Soft. Liver, spleen not palpable. No organomegaly. Bowel sounds are active. NEUROLOGIC: Unremarkable. EXTREMITIES: Peripheral pulses 2+. No pedal edema. CLINICAL IMPRESSION: Traumatic brain injury with cognitive decline, memory loss, major depression, hypokalemia, altered level, the patient not eating, not drinking or taking medication, hypertension, diabetes mellitus, type 2, diabetic peripheral neuropathy, gastroesophageal reflux disease. PLAN: The patient to continue present care and monitor the patient. [facility]# [id number]
[2017-03-28] MEDS ORDERED: Potassium Chloride 20 MEQ, Lidocaine 1% 20mL Vial 25 MG in Sodium Chloride 0.9% 250 ML IV ONE (15:00)
[2017-03-29] MEDS: Sodium Chloride 0.9% 1,000 ML IV SCH (00:56)
[2017-03-29] MEDS: Pantoprazole 40 mg EC Tab PO SCH (06:59)
[2017-03-29] MEDS: INSULIN ASPART SLIDING SCALE 100 UNITS/ML UNIT SUBQ SCH ×4 (07:06→21:15)
[2017-03-29] MEDS: Enoxaparin 40 mg/0.4 mL 0.4mL Syr SUBQ SCH ×2 (09:07→09:18)
[2017-03-29] MEDS: Multivitamin Tab PO SCH ×2 (09:08→09:18)
--- NOTE | 2017-03-29 09:52 | General Progress Note ---
Subjective - Review of Systems Events since last encounter: lethargic but arousable, nad Objective - Results Result Diagrams: 03/28/17 05:50 03/28/17 05:50 Recent Labs: Laboratory Last Values WBC 5.0 Th/cmm (4.8-10.8) 03/28/17 05:50 RBC 4.26 Mil/cmm (3.80-5.10) 03/28/17 05:50 Hgb 12.6 gm/dL (11.7-15.5) 03/28/17 05:50 Hct 37.2 % (35.0-45.0) D 03/28/17 05:50 MCV 87.4 fl (81-100) 03/28/17 05:50 MCH 29.7 pg (27.0-31.0) 03/28/17 05:50 MCHC Differential 34.0 pg (28.0-36.0) 03/28/17 05:50 RDW 15.1 % (11.5-20.0) 03/28/17 05:50 Plt Count 238 Th/cmm (150-400) 03/28/17 05:50 MPV 7.0 fl 03/28/17 05:50 Neutrophils % 68.5 % (40.0-80.0) 03/28/17 05:50 Lymphocytes % 22.6 % (20.0-50.0) 03/28/17 05:50 Monocytes % 7.3 % (2.0-10.0) 03/28/17 05:50 Eosinophils % 1.2 % (0.0-5.0) 03/28/17 05:50 Basophils % 0.4 % (0.0-2.0) 03/28/17 05:50 PT 10.0 SECONDS (9.5-11.5) 03/27/17 22:42 INR 0.96 (0.5-1.4) 03/27/17 22:42 PTT (Actin FS) 29.6 SECONDS (26.0-38.0) 03/27/17 22:42 Sodium 134 mEq/L (136-145) L 03/28/17 05:50 Potassium 3.4 mEq/L (3.5-5.1) L 03/28/17 05:50 Chloride 100 mEq/L (98-107) 03/28/17 05:50 Carbon Dioxide 18.2 mEq/L (21.0-31.0) L 03/28/17 05:50 Anion Gap 19.2 (7.0-16.0) H 03/28/17 05:50 BUN 22 mg/dL (7-25) 03/28/17 05:50 Creatinine 1.0 mg/dL (0.6-1.2) 03/28/17 05:50 Est GFR ( Amer) > 60.0 ml/min (>90) 03/28/17 05:50 Est GFR (Non-Af Amer) 59.5 ml/min 03/28/17 05:50 BUN/Creatinine Ratio 22.0 03/28/17 05:50 Glucose 246 mg/dL (70-105) H 03/28/17 05:50 POC Glucose 209 MG/DL (70 - 105) H 03/29/17 06:57 Hemoglobin A1c % 6.6 % (4.0-6.0) H 03/27/17 22:42 Whole Bld Lactic Acid 1.44 mmol/L (0.60-1.99) 03/27/17 22:42 Calcium 10.0 mg/dL (8.6-10.3) 03/28/17 05:50 Magnesium 2.0 mg/dL (1.9-2.7) 03/27/17 22:42 Total Bilirubin 0.8 mg/dL (0.3-1.0) 03/27/17 22:42 AST 14 U/L (13-39) 03/27/17 22:42 ALT 7 U/L (7-52) 03/27/17 22:42 Alkaline Phosphatase 65 U/L (34-104) 03/27/17 22:42 Creatine Kinase 22 U/L (30-223) L 03/27/17 22:42 Troponin I 0.01 ng/mL (0.01-0.05) 03/28/17 18:26 Total Protein 7.3 gm/dL (6.0-8.3) 03/27/17 22:42 Albumin 4.2 gm/dL (3.7-5.3) 03/27/17 22:42 Globulin 3.1 gm/dL 03/27/17 22:42 Albumin/Globulin Ratio 1.4 (1.0-1.8) 03/27/17 22:42 Triglycerides 321 mg/dL (<150) H 03/28/17 05:50 Cholesterol 226 mg/dL (<200) H 03/28/17 05:50 LDL Cholesterol Direct 131 mg/dL (75-193) 03/28/17 05:50 HDL Cholesterol 41 mg/dL (23-92) 03/28/17 05:50 TSH 1.56 uIU/ml (0.34-5.60) 03/28/17 05:50 - Physical Exam Vitals and I&O: Vital Signs Temp 97.8 F 03/29/17 08:00 Pulse 64 03/29/17 09:15 Resp 17 03/29/17 08:00 BP 102/59 03/29/17 09:15 Pulse Ox 100 03/29/17 08:00 Intake & Output 03/28/17 03/29/17 03/29/17 18:59 06:59 18:59 Intake Total 1622.5 50 Balance 1622.5 50 Weight (lbs) 55.52 kg 55.338 kg Intake: Intake, IV Amount 1262.5 Potassium Chloride 20 meq 262.5 Lidocaine 1% 20mL Vial 25 mg In Sodium Chloride 0.9% 250 ml @ 125 mls/hr IV X1 ONE Rx#:[id number] Sodium Chloride 0.9% 1, 1000 000 ml @ 75 mls/hr IV . [id number] [facility] Rx#:[id number] Oral 360 50 Other: # Voids 4 5 # Bowel Movements 0 0 Active Medications: Current Medications Acetaminophen (Tylenol) 650 mg PO Q4HR PRN PRN Reason: Mild Pain / Temp above 100 Stop: 05/26/17 23:49 Last Admin: 03/28/17 14:13 Dose: 650 mg Al Hydrox/Mg Hydrox/Simethicone (Maalox) 30 ml PO Q4HR PRN PRN Reason: GI DISTRESS Stop: 05/26/17 23:49 Carvedilol (Coreg) 12.5 mg PO BID [facility] Stop: 05/27/17 08:59 Last Admin: 03/29/17 09:15 Dose: Not Given Duloxetine HCl (Cymbalta) 120 mg PO DAILY [facility] PRN Reason: Protocol Stop: 05/27/17 08:59 Last Admin: 03/29/17 09:17 Dose: Not Given Enalaprilat (Vasotec) 1.25 mg IVP Q6HR PRN PRN Reason: BLOOD PRESSSURE Stop: 05/27/17 11:59 Last Admin: 03/28/17 15:59 Dose: 1.25 mg Enoxaparin Sodium (Lovenox) 40 mg SUBQ DAILY [facility] Stop: 05/27/17 08:59 Last Admin: 03/29/17 09:18 Dose: Not Given Ergocalciferol (Vitamin D) 50,000 iu PO We@0900 [facility] Stop: 05/29/17 08:59 Gabapentin (Neurontin) 800 mg PO Q8H [facility] Stop: 05/27/17 13:59 Last Admin: 03/29/17 07:00 Dose: Not Given Sodium Chloride (Nacl 0.9%) 1,000 mls @ 75 mls/hr IV .[id number] [facility] Stop: 05/26/17 23:46 Last Admin: 03/29/17 00:56 Dose: 75 mls/hr Insulin Aspart (Novolog Insulin Sliding Scale) 0 units SUBQ ACHS [facility] PRN Reason: Protocol Stop: 05/27/17 07:29 Last Admin: 03/29/17 07:06 Dose: 4 units Magnesium Hydroxide (Milk Of Magnesia) 30 ml PO HS PRN PRN Reason: Constipation Stop: 05/26/17 23:49 Mirtazapine (Remeron) 15 mg PO HS [facility] PRN Reason: Protocol Stop: 05/27/17 20:59 Last Admin: 03/28/17 20:35 Dose: Not Given Multivitamins/Vitamin C (Theragran) 1 tab PO DAILY [facility] Stop: 05/27/17 08:59 Last Admin: 03/29/17 09:18 Dose: Not Given Pantoprazole Sodium (Protonix) 40 mg PO QDAC [facility] Stop: 05/27/17 07:29 Last Admin: 03/29/17 06:59 Dose: Not Given Tramadol HCl (Ultram) 50 mg PO Q4H PRN PRN Reason: Pain (Moderate) Stop: 05/26/17 23:49 Last Admin: 03/28/17 08:31 Dose: 50 mg Trazodone HCl (Desyrel) 100 mg PO HS [facility] PRN Reason: Protocol Stop: 05/27/17 20:59 Last Admin: 03/28/17 20:35 Dose: Not Given General: No acute distress HEENT: Atraumatic, PERRLA Neck: Thyromegaly Cardiovascular: Regular rate, Normal S1, Normal S2 Lungs: Clear to auscultation Abdomen: Bowel sounds Assessment/Plan - Problem List Patient Problems: All Active Problems Dehydration (Acute) E86.0 Diabetes (Acute) E11.9 Hypokalemia (Acute) E87.6 Hyponatremia (Acute) E87.1 h/o schizophrenia (Acute) history of psychotic disorder (Acute) history of severe depression (Acute) - Plan Plan: will monitor vitals/diet labs psych as per order sheet Nutritional Asmnt/Malnutr-PDOC - Dietary Evaluation Malnutrition Findings (Please click <Entered> for more info): Nutritional Asmnt/Malnutrition Start: 03/28/17 10: 46 Text: Status: Complete Freq: Document 03/28/17 10:46 MILAD (Rec: 03/28/17 10:59 MILAD ROBERT [email or web address]) Nutritional Asmnt/Malnutrition Patient General Information Nutritional Screening High Risk Screening Diagnosis Syncope-dehydration Pertinent Medical Hx/Surgical Hx Diabetes, Idiopathic peripheral neuropathy, insomnia, GERD, chronic pain syndrome, Traumatic brain injury Subjective Information Patient was admitted from [facility] after refusing to eat, drink or take medications and having a syncopal episode. Patient continues to refuse some medical testing. Did not eat breakfast this morning. Current Diet Order/ Nutrition Support CCHO 90gm, LOURDES Patient / S.O Not Indicated Pertinent Medications maalox, vitamin D, novolog, MOM, Theragran Pertinent Labs (03/28) Na 134, K 3.4, glucose 246 (POC glucose 276),TAG 321, Cholesterol 226, HgA1C 6.6, Calcium 10.4 Nutritional Hx/Data Height 1.63 m Height (Calculated Centimeters) 162.6 Current Weight (lbs) 51.256 kg Weight (Calculated Kilograms) 51.3 Weight (Calculated Grams) 81729.9 [place] Body Weight 130 % [place] Body Weight 86 Weight Status Approriate GI Symptoms GI Symptoms None Food Allergies No Cultural/Ethnic/Restorationism Belief None indicated Usual diet at home Unknown Skin Integrity/Comment: Carlos 15, abrasion/ulceration on upper right abdomen Current %PO Negligible < 25% Estimated Nutritional Goals BEE in Kcals: Using Current wt Calories/Kcals/Kg (27-32 kcal/kg) - 86% IBW Kcals Calculated 0012-6306 kcal/day Protein: Using Current wt Protein g/k.1-1.3 gm/kg - ulceration and underweight Protein Calculated 56-66 gm/day Fluid: ml 4228-0894 ml/day (1ml/kcal) Nutritional Problem 2. Problem Problem Altered nutrition related lab values related to Etiology uncontrolled hyperglycemia, electrolyte imbalance Signs/Symptoms: Na 134, k 3.4, glucose 246 ( POC glucose 276), Calcium 10.4 1. Problem Problem Inadequate oral intake related to Etiology refusing meals/unknown reason aeb Signs/Symptoms: meeting <25% of nutrient needs , refusing meals prior to admission. Intervention/Recommendation Comments 1. Modify Diet to 60gm CCHO, LOURDES as tolerated by patient ( for better blood glucose control). 2. MD to modify insulin regimen and repalce lytes as needed. 3. consider adding Boost Glucose control TID with meals to supplement oral intake. 4. Nursing staff to supervise meals and encourage oral intake. Expected Outcomes/Goals Expected Outcomes/Goals Oral intake to meet >75% of estimated nutrient needs, weight stable or trends toward ideal body weight, Ca, Na, K and blood glucose levels normalize. F/U in 3-5 days as Moderate risk (03/31-04/02)
--- NOTE | 2017-03-29 15:11 | Cardiology ---
03/28/[address] Stroud. M-MODE ECHOCARDIOGRAM: Mitral valve, anterior leaflet of mitral valve shows normal excursion, EF velocity. Posterior leaflet of mitral valve shows normal excursion. Left ventricle posterior wall shows increased thickness, normal excursion. Interventricular septum shows increased thickness, normal excursion. Hypertrophy of the left ventricle, ejection fraction 50%. Left atrium normal. Aortic root shows normal dimension, normal excursion of aortic leaflets. CONCLUSION: Hypertrophy of the left ventricle, ejection fraction 50%. 2D ECHO: Long axis view showed normal sized left ventricle with hypertrophy of the left ventricle. Left atrium normal. Aortic root shows normal dimension, normal excursion of aortic leaflets. Short axis view of mitral valve normal. Short axis view of aortic valve normal. Apical four chamber view showed normal sized left ventricle, left atrium, right ventricle, right atrium, tricuspid and mitral valve. Ejection fraction 50%. CONCLUSION: Hypertrophy of the left ventricle, ejection fraction 50%. Doppler study shows trace tricuspid regurgitation. [facility]# [id number]
--- NOTE | 2017-03-30 03:32 | Consultation ---
DATE OF CONSULTATION: 03/29/2017 IDENTIFYING INFORMATION: The patient is a 61-year-old female. HISTOR OF PRESENT ILLNESS: ____ came in dehydrated. She has not been eating. She was discharged from [facility] last week, went to [facility] and the patient apparently has not been eating, dehydrated and apparently now she has not been taking her medications. When I talked to the patient, I know very well from [facility]. She was staying in bed and sometimes she did throw herself on the floor, but towards the end of her stay, she was stable and she just wanted to rest and she went to [facility]. Apparently, she denies any current intent to harm herself or anybody; however, she is regaining her strength now and she is eating better. She denies any auditory or visual hallucinations. She did agree to take the medications when I talked to her. PAST PSYCHIATRIC HISTORY: As per her old records. The patient with a history of depression. She is on Cymbalta 60 mg daily. FAMILY AND SOCIAL HISTORY: Refer to old records. MEDICAL HISTORY: As per Dr. Stroud. The patient has hypertension, diabetes mellitus type 2, GERD. MENTAL STATUS EXAMINATION: The patient is alert. She was preoccupied with going to the bathroom, unable to participate in a meaningful conversation, refusing to participate. However, from my knowledge of her, she denies current auditory or visual hallucinations and denies any intent to harm herself or anybody. However, she complains of poor memory, but she was uncooperative with memory testing. She denies any hallucination or paranoia. Her insight and judgment are questionable. IMPRESSION: AXIS I: Major depression, recurrent with no psychosis; cognitive disorder, not otherwise specified____. PLAN: The patient is willing to ____ take her medications. If she refused to take her medications, I am not sure if there is any situation where she could have other alternative; however, she can also go to [facility] when medically cleared. If she continues to refuse to take her medication ____. Thank you very much for allowing me to participate in the care of this most interesting lady. JOB# [id number]
[2017-03-30 06:16] LABS: % BASOPHILS 1.1 % (0.0-2.0); % EOSINOPHILS 1.5 % (0.0-5.0); % LYMPHOCYTES 31.9 % (20.0-50.0); % MONOCYTES 7.4 % (2.0-10.0); % NEUTROPHILS 58.1 % (40.0-80.0); HEMATOCRIT 32.4 % (35.0-45.0); MEAN CELL VOLUME 87.6 fl (81-100); MEAN CORPUSCULAR HEMOGLOBIN 29.9 pg (27.0-31.0); MEAN CORPUSCULAR HGB CONC 34.1 pg (28.0-36.0); MEAN PLATELET VOLUME 6.9 fl; NEUTROPHILE ABSOLUTE 2.6 Th/cmm (1.8-8.0); PLATELET COUNT 181 Th/cmm (150-400); WHITE BLOOD COUNT 4.6 Th/cmm (4.8-10.8)
[2017-03-30 06:35] LABS: ANION GAP 13.9 (7.0-16.0); BUN - UREA NITROGEN 11 mg/dL (7-25); BUN/CREATININE RATIO 12.2; CALCIUM SERUM 9.1 mg/dL (8.6-10.3); CHLORIDE 101 mEq/L (98-107); CREATININE - SERUM 0.9 mg/dL (0.6-1.2); GLUCOSE 151 mg/dL (70-105); SODIUM SERUM 134 mEq/L (136-145)
[2017-03-30] MEDS: Pantoprazole 40 mg EC Tab PO SCH (06:48)
[2017-03-30] MEDS: INSULIN ASPART SLIDING SCALE 100 UNITS/ML UNIT SUBQ SCH ×4 (06:51→20:20)
[2017-03-30 07:10] LABS: POTASSIUM SERUM 2.9 mEq/L (3.5-5.1)
[2017-03-30] MEDS: Multivitamin Tab PO SCH (09:21)
[2017-03-30] MEDS: Enoxaparin 40 mg/0.4 mL 0.4mL Syr SUBQ SCH (09:21)
--- NOTE | 2017-03-30 10:01 | General Progress Note ---
Subjective - Review of Systems Service Date: 03/30/17 Events since last encounter: patient with no distress awake ,depressed denies pain Subjective: pt is refusing all meds hypokalemia Objective - Results Result Diagrams: 03/30/17 06:06 03/30/17 06:06 Recent Labs: Laboratory Last Values WBC 4.6 Th/cmm (4.8-10.8) L 03/30/17 06:06 RBC 3.70 Mil/cmm (3.80-5.10) L 03/30/17 06:06 Hgb 11.0 gm/dL (11.7-15.5) L 03/30/17 06:06 Hct 32.4 % (35.0-45.0) L D 03/30/17 06:06 MCV 87.6 fl (81-100) 03/30/17 06:06 MCH 29.9 pg (27.0-31.0) 03/30/17 06:06 MCHC Differential 34.1 pg (28.0-36.0) 03/30/17 06:06 RDW 15.0 % (11.5-20.0) 03/30/17 06:06 Plt Count 181 Th/cmm (150-400) D 03/30/17 06:06 MPV 6.9 fl 03/30/17 06:06 Neutrophils % 58.1 % (40.0-80.0) 03/30/17 06:06 Lymphocytes % 31.9 % (20.0-50.0) 03/30/17 06:06 Monocytes % 7.4 % (2.0-10.0) 03/30/17 06:06 Eosinophils % 1.5 % (0.0-5.0) 03/30/17 06:06 Basophils % 1.1 % (0.0-2.0) 03/30/17 06:06 PT 10.0 SECONDS (9.5-11.5) 03/27/17 22:42 INR 0.96 (0.5-1.4) 03/27/17 22:42 PTT (Actin FS) 29.6 SECONDS (26.0-38.0) 03/27/17 22:42 Sodium 134 mEq/L (136-145) L 03/30/17 06:06 Potassium 2.9 mEq/L (3.5-5.1) L* 03/30/17 06:06 Chloride 101 mEq/L (98-107) 03/30/17 06:06 Carbon Dioxide 22.0 mEq/L (21.0-31.0) 03/30/17 06:06 Anion Gap 13.9 (7.0-16.0) 03/30/17 06:06 BUN 11 mg/dL (7-25) 03/30/17 06:06 Creatinine 0.9 mg/dL (0.6-1.2) 03/30/17 06:06 Est GFR ( Amer) > 60.0 ml/min (>90) 03/30/17 06:06 Est GFR (Non-Af Amer) > 60.0 ml/min 03/30/17 06:06 BUN/Creatinine Ratio 12.2 03/30/17 06:06 Glucose 151 mg/dL (70-105) H 03/30/17 06:06 POC Glucose 161 MG/DL (70 - 105) H 03/30/17 06:46 Hemoglobin A1c % 6.6 % (4.0-6.0) H 03/27/17 22:42 Whole Bld Lactic Acid 1.44 mmol/L (0.60-1.99) 03/27/17 22:42 Calcium 9.1 mg/dL (8.6-10.3) 03/30/17 06:06 Magnesium 2.0 mg/dL (1.9-2.7) 03/27/17 22:42 Total Bilirubin 0.8 mg/dL (0.3-1.0) 03/27/17 22:42 AST 14 U/L (13-39) 03/27/17 22:42 ALT 7 U/L (7-52) 03/27/17 22:42 Alkaline Phosphatase 65 U/L (34-104) 03/27/17 22:42 Creatine Kinase 22 U/L (30-223) L 03/27/17 22:42 Troponin I 0.01 ng/mL (0.01-0.05) 03/28/17 18:26 Total Protein 7.3 gm/dL (6.0-8.3) 03/27/17 22:42 Albumin 4.2 gm/dL (3.7-5.3) 03/27/17 22:42 Globulin 3.1 gm/dL 03/27/17 22:42 Albumin/Globulin Ratio 1.4 (1.0-1.8) 03/27/17 22:42 Triglycerides 321 mg/dL (<150) H 03/28/17 05:50 Cholesterol 226 mg/dL (<200) H 03/28/17 05:50 LDL Cholesterol Direct 131 mg/dL (75-193) 03/28/17 05:50 HDL Cholesterol 41 mg/dL (23-92) 03/28/17 05:50 TSH 1.56 uIU/ml (0.34-5.60) 03/28/17 05:50 - Physical Exam Vitals and I&O: Vital Signs Temp 97.2 F 03/30/17 08:00 Pulse 60 03/30/17 08:00 Resp 18 03/30/17 08:00 BP 114/28 03/30/17 08:00 Pulse Ox 100 03/30/17 08:00 Intake & Output 03/29/17 03/30/17 03/30/17 18:59 06:59 18:59 Intake Total 300 0 Balance 300 0 Weight (lbs) 55.338 kg 55.338 kg Intake: Oral 300 0 Other: # Voids 6 2 # Bowel Movements 0 0 Active Medications: Current Medications Acetaminophen (Tylenol) 650 mg PO Q4HR PRN PRN Reason: Mild Pain / Temp above 100 Stop: 05/26/17 23:49 Last Admin: 03/29/17 21:14 Dose: 650 mg Al Hydrox/Mg Hydrox/Simethicone (Maalox) 30 ml PO Q4HR PRN PRN Reason: GI DISTRESS Stop: 05/26/17 23:49 Carvedilol (Coreg) 12.5 mg PO BID [facility] Stop: 05/27/17 08:59 Last Admin: 03/29/17 17:28 Dose: Not Given Duloxetine HCl (Cymbalta) 120 mg PO DAILY [facility] PRN Reason: Protocol Stop: 05/27/17 08:59 Last Admin: 03/29/17 09:17 Dose: Not Given Enalaprilat (Vasotec) 1.25 mg IVP Q6HR PRN PRN Reason: BLOOD PRESSSURE Stop: 05/27/17 11:59 Last Admin: 03/28/17 15:59 Dose: 1.25 mg Enoxaparin Sodium (Lovenox) 40 mg SUBQ DAILY [facility] Stop: 05/27/17 08:59 Last Admin: 03/29/17 09:18 Dose: Not Given Ergocalciferol (Vitamin D) 50,000 iu PO We@0900 [facility] Stop: 05/29/17 08:59 Gabapentin (Neurontin) 800 mg PO Q8H [facility] Stop: 05/27/17 13:59 Last Admin: 03/30/17 06:47 Dose: Not Given Sodium Chloride (Nacl 0.9%) 1,000 mls @ 75 mls/hr IV .[id number] [facility] Stop: 05/26/17 23:46 Last Admin: 03/29/17 00:56 Dose: 75 mls/hr Insulin Aspart (Novolog Insulin Sliding Scale) 0 units SUBQ ACHS [facility] PRN Reason: Protocol Stop: 05/27/17 07:29 Last Admin: 03/30/17 06:51 Dose: Not Given Magnesium Hydroxide (Milk Of Magnesia) 30 ml PO HS PRN PRN Reason: Constipation Stop: 05/26/17 23:49 Mirtazapine (Remeron) 15 mg PO HS [facility] PRN Reason: Protocol Stop: 05/27/17 20:59 Last Admin: 03/29/17 21:15 Dose: 15 mg Multivitamins/Vitamin C (Theragran) 1 tab PO DAILY [facility] Stop: 05/27/17 08:59 Last Admin: 03/29/17 09:18 Dose: Not Given Pantoprazole Sodium (Protonix) 40 mg PO QDAC [facility] Stop: 05/27/17 07:29 Last Admin: 03/30/17 06:48 Dose: Not Given Tramadol HCl (Ultram) 50 mg PO Q4H PRN PRN Reason: Pain (Moderate) Stop: 05/26/17 23:49 Last Admin: 03/28/17 08:31 Dose: 50 mg Trazodone HCl (Desyrel) 100 mg PO HS [facility] PRN Reason: Protocol Stop: 05/27/17 20:59 Last Admin: 03/29/17 21:14 Dose: 100 mg General: No acute distress HEENT: Atraumatic, PERRLA Neck: Thyromegaly Cardiovascular: Regular rate, Normal S1, Normal S2 Lungs: Clear to auscultation Abdomen: Bowel sounds Assessment/Plan - Problem List Patient Problems: All Active Problems Dehydration (Acute) E86.0 Diabetes (Acute) E11.9 Hypokalemia (Acute) E87.6 Hyponatremia (Acute) E87.1 h/o schizophrenia (Acute) history of psychotic disorder (Acute) history of severe depression (Acute) - Plan Plan: will monitor vitals/diet labs psych as per order sheet Nutritional Asmnt/Malnutr-PDOC - Dietary Evaluation Malnutrition Findings (Please click <Entered> for more info): Nutritional Asmnt/Malnutrition Start: 03/28/17 10: 46 Text: Status: Complete Freq: Document 03/28/17 10:46 MILAD (Rec: 03/28/17 10:59 MILAD ROBERT- [email or web address]) Nutritional Asmnt/Malnutrition Patient General Information Nutritional Screening High Risk Screening Diagnosis Syncope-dehydration Pertinent Medical Hx/Surgical Hx Diabetes, Idiopathic peripheral neuropathy, insomnia, GERD, chronic pain syndrome, Traumatic brain injury Subjective Information Patient was admitted from [facility] after refusing to eat, drink or take medications and having a syncopal episode. Patient continues to refuse some medical testing. Did not eat breakfast this morning. Current Diet Order/ Nutrition Support CCHO 90gm, LOURDES Patient / S.O Not Indicated Pertinent Medications maalox, vitamin D, novolog, MOM, Theragran Pertinent Labs (03/28) Na 134, K 3.4, glucose 246 (POC glucose 276),TAG 321, Cholesterol 226, HgA1C 6.6, Calcium 10.4 Nutritional Hx/Data Height 1.63 m Height (Calculated Centimeters) 162.6 Current Weight (lbs) 51.256 kg Weight (Calculated Kilograms) 51.3 Weight (Calculated Grams) 57957.9 [place] Body Weight 130 % [place] Body Weight 86 Weight Status Approriate GI Symptoms GI Symptoms None Food Allergies No Cultural/Ethnic/[place] Belief None indicated Usual diet at home Unknown Skin Integrity/Comment: Carlos 15, abrasion/ulceration on upper right abdomen Current %PO Negligible < 25% Estimated Nutritional Goals BEE in Kcals: Using Current wt Calories/Kcals/Kg (27-32 kcal/kg) - 86% IBW Kcals Calculated 8630-8208 kcal/day Protein: Using Current wt Protein g/k.1-1.3 gm/kg - ulceration and underweight Protein Calculated 56-66 gm/day Fluid: ml 8309-8494 ml/day (1ml/kcal) Nutritional Problem 2. Problem Problem Altered nutrition related lab values related to Etiology uncontrolled hyperglycemia, electrolyte imbalance Signs/Symptoms: Na 134, k 3.4, glucose 246 ( POC glucose 276), Calcium 10.4 1. Problem Problem Inadequate oral intake related to Etiology refusing meals/unknown reason aeb Signs/Symptoms: meeting <25% of nutrient needs , refusing meals prior to admission. Intervention/Recommendation Comments 1. Modify Diet to 60gm CCHO, LOURDES as tolerated by patient ( for better blood glucose control). 2. MD to modify insulin regimen and repalce lytes as needed. 3. consider adding Boost Glucose control TID with meals to supplement oral intake. 4. Nursing staff to supervise meals and encourage oral intake. Expected Outcomes/Goals Expected Outcomes/Goals Oral intake to meet >75% of estimated nutrient needs, weight stable or trends toward ideal body weight, Ca, Na, K and blood glucose levels normalize. F/U in 3-5 days as Moderate risk (03/31-04/02)
[2017-03-30] MEDS ORDERED: Potassium Chloride 20 mEq ER Tab PO ONE (12:05)
[2017-03-30 15:32] LABS: URINE BILIRUBIN SMALL (NEGATIVE); URINE BLOOD NEGATIVE (NEGATIVE); URINE GLUCOSE (UA) NEGATIVE (NEGATIVE); URINE KETONE 40 mg/dL (NEGATIVE); URINE PROTEIN TRACE mg/dL (NEGATIVE); URINE UROBILINOGEN 0.2 E.U./dL (0.2 - 1.0)
[2017-03-30 15:41] LABS: URINE COLOR YELLOW
[2017-03-30 15:58] LABS: URINE RBC 0-2 /hpf (0-5)
[2017-03-30 15:59] LABS: URINE BACTERIA FEW /hpf (NONE SEEN); URINE EPITHELIAL CELLS NONE SEEN /lpf (FEW)
--- NOTE | 2017-03-30 21:52 | Progress Notes ---
DATE: 03/30/2017 HISTORY OF PRESENT ILLNESS: This is a 61-year-old female with history of the Geropsych placement, currently in the med/surg unit, not eating. She only ate 25% of a snack yesterday, refusing breakfast this morning, refusing to speak with me this morning. She keeps her eyes closed. She is awake, but is completely not responding to me. I did get information from staff who notes that she is not eating and she is pulling out her IV line and she is refusing care and making statements such as, "Just leave me alone." The patient also apparently had syncopal episodes at the [facility]. PAST PSYCH HISTORY: The patient was a recent discharge from Geropsych Unit. FAMILY HISTORY: Noncontributory. SOCIAL HISTORY: Unclear. The patient is not really engaging with me. She was staying at ____ [facility]. Beyond this, I do not know what her social support network looks like. MENTAL STATUS EXAMINATION: Stated age, no eye contact, keeping her eyes closed. Mood not answering. Affect flat. Thought processes were difficult to full assess. Thought content difficult to fully assess. Insight is poor. Judgment is poor. Unclear if there are any psychotic symptoms or suicidal symptoms. PROVISIONAL DIAGNOSES: Mood, unspecified, likely major depressive disorder. I spoke with Dr. Hurtado who is concerned about borderline traits. It is unclear if there is another psychiatric diagnosis. I am unable to open the electronic medical record system today. MEDICAL DIAGNOSES: She is refusing treatment and refusing to eat, and also syncope. RECOMMENDATIONS AND PLAN: The patient is presenting with dangerous and erratic behaviors, not eating, refusing treatment. Recent Geropsych placement. History of mental illness. We will initiate a 72-hour hold to trying to transfer the patient to the Geropsych Unit. The patient may need a [facility] petition, but as of yet not medically stable. PLAN: We will continue to monitor and follow up and encourage better med compliance and treatment compliance. The nurse will again try to place an IV today. JOB# [id number]
--- NOTE | 2017-03-30 23:41 | Consultation ---
Consult Note - Consult Note Service Date: 03/30/17 Referring Physician: Robina Stroud Consult Note: PHYSICIAN Consultation Note: Date of Admission: 03/27/17 Purpose of Consultation: UTI. Chief Complaint: Patient KATTY PEREZ was admitted to location Medical[facility] Unit I with SYNCOPE-DEHYDRATION. History of Present Illness: Patient is 61 year female with a past medical history of schizophrenia, hypertension, TIA, diabetes mellitus type 2 brought from the [facility] for her noncompliance, not taking her medication. She was refusing to take food. Besides this she was found to have dehydration. She was sent to the ER. She was found to have pyuria and bacteriuria. ID consult was called for antibiotic management. Past Medical History: schizophrenia, hypertension, TIA, diabetes mellitus type 2. Diagnoses TYPE 2 DIABETES MELLITUS WITH DIABETIC POLYNEUROPATHY (03/27/17) TYPE 2 DIABETES MELLITUS WITHOUT COMPLICATIONS (03/27/17) DEHYDRATION (03/27/17) HYPO-OSMOLALITY AND HYPONATREMIA (03/27/17) HYPOKALEMIA (03/27/17) SCHIZOPHRENIA, UNSPECIFIED (03/27/17) MAJOR DEPRESSIVE DISORDER, RECURRENT, UNSPECIFIED (03/27/17) ESSENTIAL (PRIMARY) HYPERTENSION (03/27/17) GASTRO-ESOPHAGEAL REFLUX DISEASE WITHOUT ESOPHAGITIS (03/27/17) TRANSIENT ALTERATION OF AWARENESS (03/27/17) PERSONAL HISTORY OF TRAUMATIC BRAIN INJURY (03/27/17) Allergies Allergy/AdvReac Type Severity Reaction Status Date / Time No Known Allergies Allergy Verified 03/07/17 21:52 Vital Signs Temp 97.4 F 03/30/17 16:00 Pulse 70 03/30/17 18:56 Resp 19 03/30/17 16:00 BP 123/72 03/30/17 18:56 Pulse Ox 98 03/30/17 16:00 Intake & Output 03/30/17 03/30/17 03/31/17 06:59 18:59 06:59 Intake Total 0 Balance 0 Weight (lbs) 55.338 kg 55.338 kg Intake: Oral 0 Other: # Voids 2 2 # Bowel Movements 0 Laboratory Results - last 24 hr 03/30/17 03/30/17 03/30/17 06:06 06:06 06:46 WBC 4.6 L RBC 3.70 L Hgb 11.0 L Hct 32.4 L D MCV 87.6 MCH 29.9 MCHC Differential 34.1 RDW 15.0 Plt Count 181 D MPV 6.9 Neutrophils % 58.1 Lymphocytes % 31.9 Monocytes % 7.4 Eosinophils % 1.5 Basophils % 1.1 Sodium 134 L Potassium 2.9 L* Chloride 101 Carbon Dioxide 22.0 Anion Gap 13.9 BUN 11 Creatinine 0.9 Est GFR ( Amer) > 60.0 Est GFR (Non-Af Amer) > 60.0 BUN/Creatinine Ratio 12.2 Glucose 151 H POC Glucose 161 H Calcium 9.1 Urine Source Urine Color Urine Clarity Urine pH Ur Specific Sharon Urine Protein Urine Glucose (UA) Urine Ketones Urine Blood Urine Nitrate Urine Bilirubin Urine Urobilinogen Ur Leukocyte Esterase Urine RBC Urine WBC Ur Epithelial Cells Urine Bacteria 03/30/17 03/30/17 03/30/17 11:47 12:15 17:48 WBC RBC Hgb Hct MCV MCH MCHC Differential RDW Plt Count MPV Neutrophils % Lymphocytes % Monocytes % Eosinophils % Basophils % Sodium Potassium Chloride Carbon Dioxide Anion Gap BUN Creatinine Est GFR ( Amer) Est GFR (Non-Af Amer) BUN/Creatinine Ratio Glucose POC Glucose 156 H 131 H Calcium Urine Source CLEAN C Urine Color YELLOW Urine Clarity CLEAR Urine pH 6.0 Ur Specific Sharon 1.010 Urine Protein TRACE Urine Glucose (UA) NEGATIVE Urine Ketones 40 H Urine Blood NEGATIVE Urine Nitrate POSITIVE H Urine Bilirubin SMALL H Urine Urobilinogen 0.2 Ur Leukocyte Esterase SMALL H Urine RBC 0-2 Urine WBC 6-10 H Ur Epithelial Cells NONE SEEN Urine Bacteria FEW 03/30/17 20:18 WBC RBC Hgb Hct MCV MCH MCHC Differential RDW Plt Count MPV Neutrophils % Lymphocytes % Monocytes % Eosinophils % Basophils % Sodium Potassium Chloride Carbon Dioxide Anion Gap BUN Creatinine Est GFR ( Amer) Est GFR (Non-Af Amer) BUN/Creatinine Ratio Glucose POC Glucose 149 H Calcium Urine Source Urine Color Urine Clarity Urine pH Ur Specific Sharon Urine Protein Urine Glucose (UA) Urine Ketones Urine Blood Urine Nitrate Urine Bilirubin Urine Urobilinogen Ur Leukocyte Esterase Urine RBC Urine WBC Ur Epithelial Cells Urine Bacteria Home Medication Medication Instructions Recorded Type Acetaminophen [Tylenol] 650 mg PO Q4HR PRN tab 03/23/17 Rx Al Hyd/Mg Hyd/Simethicone [Maalox] 30 ml PO Q4HR PRN udc 03/23/17 Rx Carvedilol [Coreg] 12.5 mg PO BID tab 03/23/[address] [Cymbalta] 120 mg PO DAILY ecc 03/23/17 Rx Enoxaparin [Lovenox] 40 mg SUBQ DAILY syr 03/23/17 Rx Ergocalciferol [Vitamin D] 50,000 iu PO We sgl 03/23/17 Rx Insulin Aspart Sliding Scale 0 units SUBQ ACHS unit 03/23/17 Rx [NovoLOG INSULIN SLIDING SCALE] Magnesium Hydroxide [Milk of 30 ml PO HS PRN udc 03/23/17 Rx Magnesia] Mirtazapine [Remeron] 15 mg PO HS tab 03/23/17 Rx Multivitamin [Theragran] 1 tab PO DAILY tab 03/23/17 Rx Pantoprazole [Protonix] 40 mg PO QDAC ect 03/23/17 Rx traMADol HCl [Ultram*] 50 mg PO Q4H PRN tab 03/23/17 Rx traZODone HCl [Desyrel*] 100 mg PO HS tab 03/23/17 Rx Gabapentin [Neurontin] 800 mg PO Q8H 03/27/17 History Current Medications Generic Name Dose Route Start Last Admin Trade Name Freq PRN Reason Stop Dose Admin Acetaminophen 650 mg 03/27/17 23:50 03/29/17 21:14 Tylenol PO 05/26/17 23:49 650 mg Q4HR PRN Administration Mild Pain / Temp above 100 Al Hydrox/Mg Hydrox/Simethicone 30 ml 03/27/17 23:50 Maalox PO 05/26/17 23:49 Q4HR PRN GI DISTRESS Carvedilol 12.5 mg 03/28/17 09:00 03/30/17 18:56 Coreg PO 05/27/17 08:59 Not Given BID DEVAUGHN Duloxetine HCl 120 mg 03/28/17 09:00 03/30/17 09:21 Cymbalta PO 05/27/17 08:59 Not Given DAILY [facility] Protocol Enalaprilat 1.25 mg 03/28/17 09:47 03/28/17 15:59 Vasotec IVP 05/27/17 11:59 1.25 mg Q6HR PRN Administration BLOOD PRESSSURE Enoxaparin Sodium 40 mg 03/28/17 09:00 03/30/17 09:21 Lovenox SUBQ 05/27/17 08:59 Not Given DAILY DEVAUGHN Ergocalciferol 50,000 iu 03/30/17 09:00 03/30/17 09:21 Vitamin D PO 05/29/17 08:59 Not Given We@0900 DEVAUGHN Gabapentin 800 mg 03/28/17 14:00 03/30/17 17:51 Neurontin PO 05/27/17 13:59 Not Given Q8H DEVAUGHN Sodium Chloride 1,000 mls @ 75 mls/hr 03/27/17 23:47 03/29/17 00:56 Nacl 0.9% IV 05/26/17 23:46 75 mls/hr .[id number] DEVAUGHN Administration Insulin Aspart 0 units 03/28/17 07:30 03/30/17 20:20 Novolog Insulin Sliding Scale SUBQ 05/27/17 07:29 Not Given ACHS DEVAUGHN Protocol Magnesium Hydroxide 30 ml 03/27/17 23:50 Milk Of Magnesia PO 05/26/17 23:49 HS PRN Constipation Mirtazapine 15 mg 03/28/17 21:00 03/29/17 21:15 Remeron PO 05/27/17 20:59 15 mg HS DEVAUGHN Administration Protocol Multivitamins/Vitamin C 1 tab 03/28/17 09:00 03/30/17 09:21 Theragran PO 05/27/17 08:59 Not Given DAILY [facility] Mupirocin 1 appl 03/31/17 09:00 Bactroban Oint NS 04/04/17 17:01 BID [facility] Pantoprazole Sodium 40 mg 03/28/17 07:30 03/30/17 06:48 Protonix PO 05/27/17 07:29 Not Given QDAC [facility] Tramadol HCl 50 mg 03/27/17 23:50 03/30/17 17:51 Ultram PO 05/26/17 23:49 50 mg Q4H PRN Administration Pain (Moderate) Trazodone HCl 100 mg 03/28/17 21:00 03/29/17 21:14 Desyrel PO 05/27/17 20:59 100 mg HS DEVAUGHN Administration Protocol Review of Systems: A 12 point ROS was reviewed with the pertinent positive and negatives noted in the HPI. Social History Smoking Status Unknown if ever smoked Family Medical History Unknown Physical Exam: General: Comfortable, not in acute distress. HEENT: Head: Normocephalic, atraumatic. Oral cavity: Moist, pink tongue. Eyes : No pallor icterus. PERRLA. EOMI. Neck: Supple, no JVD, no use of neck muscles Cardio: S1 and S2 within normal limits. No murmur, no gallop. Respiratory: Vesicular breath sound, Abdominal: soft, nontender nondistended bowel sounds present Genital/Urinary: Deferred. Extremities: No cyanosis, no clubbing, no edema. Neurological: Alert, awake, oriented 3. Assessment: 1. UTI. 2. Hypertension. 3. Diabetes mellitus type 2 4. Schizophrenia Plan: Will start levaquin po for 7 days. Thank you, Dr. Stroud, for involving me in taking care of this patient. Signed, Eliseo Humphries M.D. [id number]
--- NOTE | 2017-03-31 03:07 | Admit Criteria Form ---
Admit Criteria Forms - Admit Criteria Diagnosis: HYPONATREMIA; HYPERNATREMIA; HYPOKALEMIA; HYPERKALEMIA; HYPOCALCEMIA; HYPERCALCEMIA Clinical Indications for Inpatient Care (Place 'X' for any and all applicable criteria): Ongoing inpatient care may be indicated for ANY ONE of the following [G](1)(2)(3 )(5): [ ]I. Hyponatremia with ANY ONE of the following: [ ]a) Sodium less than 130 mEq/L (mmol/L) (new) (6)(22) [ ]b) Sodium less than 135 mEq/L (mmol/L) with ANY ONE of the following: [ ]i) Severe medical etiology requiring inpatient management (eg, heart failure, hypovolemia) [ ]ii) Altered mental status [ ]iii) Seizures [ ]II. Hypernatremia with ANY ONE of the following: [ ]a) Sodium greater than 155 mEq/L (mmol/L) [ ]b) Sodium greater than 150 mEq/L (mmol/L) with ANY ONE of the following: [ ] i) Altered mental status [ ]ii) Seizures [ ]iii) Severe medical etiology (eg, hypovolemia, diabetes insipidus) [ ]iv) Severe weakness [ ]v) Severe medical etiology (eg, hemolysis, infection, drug overdose) [X ]III. Hypokalemia with ANY ONE of the following: [ ]a) Potassium less than 2.5 mEq/L (mmol/L) despite outpatient and emergency treatment [X ]b) Potassium less than 3.0 mEq/L (mmol/L) with ANY ONE of the following: [ ]i) Weakness [ ]ii) Cardiac abnormality (eg, arrhythmia, conduction disturbance) [ ]iii) Cardiac ischemia [ ]iv) Ileus [ ]v) Ongoing medical cause requiring inpatient management. ( e.g., acute renal wasting, SIADH) [X ]vi) Other severe symptoms [ ] IV. Hyperkalemia with ANY ONE of the following: [ ]a) Potassium greater than 6.5 mEq/L (mmol/L) [ ]b) Potassium greater than 5 mEq/L (mmol/L) with ANY ONE of the following: [ ]i) Severe ECG findings [H] [ ]ii) Acute worsening of renal failure (creatinine greater than 2.5 mg/dL (221 micromoles/L) or significant elevation for age and size) [ ] V. Hypocalcemia with ANY ONE of the following: [ ]a) Calcium less than 7 mg/dL (1.75 mmol/L) despite outpatient and emergency treatment(19) [ ]b) Calcium less than 8 mg/dL (2 mmol/L) with significant symptoms or findings; examples include: [ ]i) Cardiac abnormality (eg, arrhythmia or conduction disturbance) [ ]ii) Altered mental status [ ]iii) Seizures [ ]iv) Breathing difficulty [ ]v) Muscle spasms [ ]. Hypercalcemia with ANY ONE of the following: [ ]a) Calcium greater than 14 mg/dL (3.5 mmol/L) [ ]b) Calcium greater than 12 mg/dL (3 mmol/L) with ANY ONE of the following: [ ]i) Significant dehydration or hypovolemia as indicated by ANY ONE of the following(2): [ ]1. Clinically significant dehydration as indicated by ANY ONE of the following: [ ]A. Acute loss of weight from baseline (5% of body weight in adults, 9% in pediatric patients) [ ]B. Hemodynamic instability [ ]C. Acute renal failure [ ]D. Serum sodium greater than 150 mEq/L (mmol/L) [ ]2) Dehydration that is persistent indicated by ALL of the following: [ ]A. Oral rehydration therapy not tolerated or insufficient to adequately correct dehydration [ ]B. Appropriate intravenous treatment (eg, fluids ) does not readily correct dehydration ie, after 12 to 24 hours of treatment) [ ]ii) Significant symptoms or findings; examples include: [ ]1) Altered mental status [ ]2) Cardiac abnormality (eg, arrhythmia, conduction disturbance) [ ]3) Cardiac abnormality (eg, arrhythmia, conduction disturbance) The original [facility] content created by [employer] has been revised. The portions of the content which have been revised are identified through the use of italic text or in bold, and [facility] has neither reviewed nor approved the modified material. All other unmodified content is copyright [facility] Please see references footnoted in the original [facility] edition 2016 Admit Criteria Met?: Yes
[2017-03-31] MEDS: INSULIN ASPART SLIDING SCALE 100 UNITS/ML UNIT SUBQ SCH ×2 (07:01→21:40)
[2017-03-31] MEDS: Enoxaparin 40 mg/0.4 mL 0.4mL Syr SUBQ SCH (09:50)
[2017-03-31] MEDS: Multivitamin Tab PO SCH (09:51)
--- NOTE | 2017-03-31 13:40 | General Progress Note ---
Subjective - Review of Systems Events since last encounter: Patient awake , no distress Subjective: pt is refusing all meds hypokalemia Objective - Results Result Diagrams: 03/30/17 06:06 03/30/17 06:06 Recent Labs: Laboratory Last Values WBC 4.6 Th/cmm (4.8-10.8) L 03/30/17 06:06 RBC 3.70 Mil/cmm (3.80-5.10) L 03/30/17 06:06 Hgb 11.0 gm/dL (11.7-15.5) L 03/30/17 06:06 Hct 32.4 % (35.0-45.0) L D 03/30/17 06:06 MCV 87.6 fl (81-100) 03/30/17 06:06 MCH 29.9 pg (27.0-31.0) 03/30/17 06:06 MCHC Differential 34.1 pg (28.0-36.0) 03/30/17 06:06 RDW 15.0 % (11.5-20.0) 03/30/17 06:06 Plt Count 181 Th/cmm (150-400) D 03/30/17 06:06 MPV 6.9 fl 03/30/17 06:06 Neutrophils % 58.1 % (40.0-80.0) 03/30/17 06:06 Lymphocytes % 31.9 % (20.0-50.0) 03/30/17 06:06 Monocytes % 7.4 % (2.0-10.0) 03/30/17 06:06 Eosinophils % 1.5 % (0.0-5.0) 03/30/17 06:06 Basophils % 1.1 % (0.0-2.0) 03/30/17 06:06 PT 10.0 SECONDS (9.5-11.5) 03/27/17 22:42 INR 0.96 (0.5-1.4) 03/27/17 22:42 PTT (Actin FS) 29.6 SECONDS (26.0-38.0) 03/27/17 22:42 Sodium 134 mEq/L (136-145) L 03/30/17 06:06 Potassium 2.9 mEq/L (3.5-5.1) L* 03/30/17 06:06 Chloride 101 mEq/L (98-107) 03/30/17 06:06 Carbon Dioxide 22.0 mEq/L (21.0-31.0) 03/30/17 06:06 Anion Gap 13.9 (7.0-16.0) 03/30/17 06:06 BUN 11 mg/dL (7-25) 03/30/17 06:06 Creatinine 0.9 mg/dL (0.6-1.2) 03/30/17 06:06 Est GFR ( Amer) > 60.0 ml/min (>90) 03/30/17 06:06 Est GFR (Non-Af Amer) > 60.0 ml/min 03/30/17 06:06 BUN/Creatinine Ratio 12.2 03/30/17 06:06 Glucose 151 mg/dL (70-105) H 03/30/17 06:06 POC Glucose 188 MG/DL (70 - 105) H 03/31/17 12:43 Hemoglobin A1c % 6.6 % (4.0-6.0) H 03/27/17 22:42 Whole Bld Lactic Acid 1.44 mmol/L (0.60-1.99) 03/27/17 22:42 Calcium 9.1 mg/dL (8.6-10.3) 03/30/17 06:06 Magnesium 2.0 mg/dL (1.9-2.7) 03/27/17 22:42 Total Bilirubin 0.8 mg/dL (0.3-1.0) 03/27/17 22:42 AST 14 U/L (13-39) 03/27/17 22:42 ALT 7 U/L (7-52) 03/27/17 22:42 Alkaline Phosphatase 65 U/L (34-104) 03/27/17 22:42 Creatine Kinase 22 U/L (30-223) L 03/27/17 22:42 Troponin I 0.01 ng/mL (0.01-0.05) 03/28/17 18:26 Total Protein 7.3 gm/dL (6.0-8.3) 03/27/17 22:42 Albumin 4.2 gm/dL (3.7-5.3) 03/27/17 22:42 Globulin 3.1 gm/dL 03/27/17 22:42 Albumin/Globulin Ratio 1.4 (1.0-1.8) 03/27/17 22:42 Triglycerides 321 mg/dL (<150) H 03/28/17 05:50 Cholesterol 226 mg/dL (<200) H 03/28/17 05:50 LDL Cholesterol Direct 131 mg/dL (75-193) 03/28/17 05:50 HDL Cholesterol 41 mg/dL (23-92) 03/28/17 05:50 TSH 1.56 uIU/ml (0.34-5.60) 03/28/17 05:50 Urine Source CLEAN C 03/30/17 12:15 Urine Color YELLOW 03/30/17 12:15 Urine Clarity CLEAR (CLEAR) 03/30/17 12:15 Urine pH 6.0 (4.6 - 8.0) 03/30/17 12:15 Ur Specific [place] 1.010 (1.005-1.030) 03/30/17 12:15 Urine Protein TRACE mg/dL (NEGATIVE) 03/30/17 12:15 Urine Glucose (UA) NEGATIVE mg/dL (NEGATIVE) 03/30/17 12:15 Urine Ketones 40 mg/dL (NEGATIVE) H 03/30/17 12:15 Urine Blood NEGATIVE (NEGATIVE) 03/30/17 12:15 Urine Nitrate POSITIVE (NEGATIVE) H 03/30/17 12:15 Urine Bilirubin SMALL (NEGATIVE) H 03/30/17 12:15 Urine Urobilinogen 0.2 E.U./dL (0.2 - 1.0) 03/30/17 12:15 Ur Leukocyte Esterase SMALL (NEGATIVE) H 03/30/17 12:15 Urine RBC 0-2 /hpf (0-5) 03/30/17 12:15 Urine WBC 6-10 /hpf (0-5) H 03/30/17 12:15 Ur Epithelial Cells NONE SEEN /lpf (FEW) 03/30/17 12:15 Urine Bacteria FEW /hpf (NONE SEEN) 03/30/17 12:15 - Physical Exam Vitals and I&O: Vital Signs Temp 97.2 F 03/31/17 04:00 Pulse 65 03/31/17 09:50 Resp 18 03/31/17 04:00 BP 140/67 03/31/17 09:50 Pulse Ox 96 03/31/17 04:00 Intake & Output 03/30/17 03/31/17 03/31/17 18:59 06:59 18:59 Intake Total 200 Balance 200 Weight (lbs) 55.338 kg 55.338 kg Intake: Oral 200 Other: # Voids 2 3 Active Medications: Current Medications Acetaminophen (Tylenol) 650 mg PO Q4HR PRN PRN Reason: Mild Pain / Temp above 100 Stop: 05/26/17 23:49 Last Admin: 03/29/17 21:14 Dose: 650 mg Al Hydrox/Mg Hydrox/Simethicone (Maalox) 30 ml PO Q4HR PRN PRN Reason: GI DISTRESS Stop: 05/26/17 23:49 Carvedilol (Coreg) 12.5 mg PO BID [facility] Stop: 05/27/17 08:59 Last Admin: 03/31/17 09:50 Dose: 12.5 mg Duloxetine HCl (Cymbalta) 120 mg PO DAILY DEVAUGHN PRN Reason: Protocol Stop: 05/27/17 08:59 Last Admin: 03/31/17 12:21 Dose: 120 mg Enalaprilat (Vasotec) 1.25 mg IVP Q6HR PRN PRN Reason: BLOOD PRESSSURE Stop: 05/27/17 11:59 Last Admin: 03/28/17 15:59 Dose: 1.25 mg Enoxaparin Sodium (Lovenox) 40 mg SUBQ DAILY [facility] Stop: 05/27/17 08:59 Last Admin: 03/31/17 09:50 Dose: Not Given Ergocalciferol (Vitamin D) 50,000 iu PO We@0900 [facility] Stop: 05/29/17 08:59 Last Admin: 03/30/17 09:21 Dose: Not Given Gabapentin (Neurontin) 800 mg PO Q8H [facility] Stop: 05/27/17 13:59 Last Admin: 03/31/17 06:25 Dose: Not Given Sodium Chloride (Nacl 0.9%) 1,000 mls @ 75 mls/hr IV .[id number] [facility] Stop: 05/26/17 23:46 Last Admin: 03/29/17 00:56 Dose: 75 mls/hr Insulin Aspart (Novolog Insulin Sliding Scale) 0 units SUBQ ACHS DEVAUGHN PRN Reason: Protocol Stop: 05/27/17 07:29 Last Admin: 03/31/17 07:01 Dose: Not Given Levofloxacin (Levaquin) 250 mg PO DAILY DEVAUGHN Stop: 05/30/17 08:59 Last Admin: 03/31/17 09:51 Dose: 250 mg Magnesium Hydroxide (Milk Of Magnesia) 30 ml PO HS PRN PRN Reason: Constipation Stop: 05/26/17 23:49 Mirtazapine (Remeron) 15 mg PO HS DEVAUGHN PRN Reason: Protocol Stop: 05/27/17 20:59 Last Admin: 03/30/17 20:20 Dose: Not Given Multivitamins/Vitamin C (Theragran) 1 tab PO DAILY DEVAUGHN Stop: 05/27/17 08:59 Last Admin: 03/31/17 09:51 Dose: 1 tab Mupirocin (Bactroban Oint) 1 appl NS BID DEVAUGHN Stop: 04/04/17 17:01 Last Admin: 03/31/17 12:27 Dose: 1 appl Pantoprazole Sodium (Protonix) 40 mg PO QDAC DEVAUGHN Stop: 05/27/17 07:29 Last Admin: 03/30/17 06:48 Dose: Not Given Tramadol HCl (Ultram) 50 mg PO Q4H PRN PRN Reason: Pain (Moderate) Stop: 05/26/17 23:49 Last Admin: 03/30/17 17:51 Dose: 50 mg Trazodone HCl (Desyrel) 100 mg PO HS DEVAUGHN PRN Reason: Protocol Stop: 05/27/17 20:59 Last Admin: 03/30/17 20:20 Dose: Not Given General: No acute distress HEENT: Atraumatic, PERRLA Neck: Thyromegaly Cardiovascular: Regular rate, Normal S1, Normal S2 Lungs: Clear to auscultation Abdomen: Bowel sounds Assessment/Plan - Problem List Patient Problems: All Active Problems Dehydration (Acute) E86.0 Diabetes (Acute) E11.9 Hypokalemia (Acute) E87.6 Hyponatremia (Acute) E87.1 h/o schizophrenia (Acute) history of psychotic disorder (Acute) history of severe depression (Acute) - Plan Plan: will monitor vitals/diet labs psych as per order sheet Nutritional Asmnt/Malnutr-PDOC - Dietary Evaluation Malnutrition Findings (Please click <Entered> for more info): Nutritional Asmnt/Malnutrition Start: 03/28/17 10: 46 Text: Status: Complete Freq: Document 03/28/17 10:46 MILAD (Rec: 03/28/17 10:59 MILAD YESICA- [email or web address]) Nutritional Asmnt/Malnutrition Patient General Information Nutritional Screening High Risk Screening Diagnosis Syncope-dehydration Pertinent Medical Hx/Surgical Hx Diabetes, Idiopathic peripheral neuropathy, insomnia, GERD, chronic pain syndrome, Traumatic brain injury Subjective Information Patient was admitted from [facility] after refusing to eat, drink or take medications and having a syncopal episode. Patient continues to refuse some medical testing. Did not eat breakfast this morning. Current Diet Order/ Nutrition Support CCHO 90gm, LOURDES Patient / S.O Not Indicated Pertinent Medications maalox, vitamin D, novolog, MOM, Theragran Pertinent Labs (03/28) Na 134, K 3.4, glucose 246 (POC glucose 276),TAG 321, Cholesterol 226, HgA1C 6.6, Calcium 10.4 Nutritional Hx/Data Height 1.63 m Height (Calculated Centimeters) 162.6 Current Weight (lbs) 51.256 kg Weight (Calculated Kilograms) 51.3 Weight (Calculated Grams) 14766.9 [place] Body Weight 130 % [place] Body Weight 86 Weight Status Approriate GI Symptoms GI Symptoms None Food Allergies No Cultural/Ethnic/Shinto Belief None indicated Usual diet at home Unknown Skin Integrity/Comment: Carlos 15, abrasion/ulceration on upper right abdomen Current %PO Negligible < 25% Estimated Nutritional Goals BEE in Kcals: Using Current wt Calories/Kcals/Kg (27-32 kcal/kg) - 86% IBW Kcals Calculated 3577-8194 kcal/day Protein: Using Current wt Protein g/k.1-1.3 gm/kg - ulceration and underweight Protein Calculated 56-66 gm/day Fluid: ml 4992-1418 ml/day (1ml/kcal) Nutritional Problem 2. Problem Problem Altered nutrition related lab values related to Etiology uncontrolled hyperglycemia, electrolyte imbalance Signs/Symptoms: Na 134, k 3.4, glucose 246 ( POC glucose 276), Calcium 10.4 1. Problem Problem Inadequate oral intake related to Etiology refusing meals/unknown reason aeb Signs/Symptoms: meeting <25% of nutrient needs , refusing meals prior to admission. Intervention/Recommendation Comments 1. Modify Diet to 60gm CCHO, LOURDES as tolerated by patient ( for better blood glucose control). 2. MD to modify insulin regimen and repalce lytes as needed. 3. consider adding Boost Glucose control TID with meals to supplement oral intake. 4. Nursing staff to supervise meals and encourage oral intake. Expected Outcomes/Goals Expected Outcomes/Goals Oral intake to meet >75% of estimated nutrient needs, weight stable or trends toward ideal body weight, Ca, Na, K and blood glucose levels normalize. F/U in 3-5 days as Moderate risk (03/31-04/02)
[2017-03-31] MEDS: Pantoprazole 40 mg EC Tab PO SCH (14:59)
--- NOTE | 2017-03-31 17:01 | Infectious Disease Prog Note ---
Infectious Disease Subjective - Review of Systems Service Date: 03/31/17 Subjective: no fever. Infectious Disease Objective - Results Result Diagrams: 03/30/17 06:06 03/30/17 06:06 Recent Labs: Laboratory Last Values WBC 4.6 Th/cmm (4.8-10.8) L 03/30/17 06:06 RBC 3.70 Mil/cmm (3.80-5.10) L 03/30/17 06:06 Hgb 11.0 gm/dL (11.7-15.5) L 03/30/17 06:06 Hct 32.4 % (35.0-45.0) L D 03/30/17 06:06 MCV 87.6 fl (81-100) 03/30/17 06:06 MCH 29.9 pg (27.0-31.0) 03/30/17 06:06 MCHC Differential 34.1 pg (28.0-36.0) 03/30/17 06:06 RDW 15.0 % (11.5-20.0) 03/30/17 06:06 Plt Count 181 Th/cmm (150-400) D 03/30/17 06:06 MPV 6.9 fl 03/30/17 06:06 Neutrophils % 58.1 % (40.0-80.0) 03/30/17 06:06 Lymphocytes % 31.9 % (20.0-50.0) 03/30/17 06:06 Monocytes % 7.4 % (2.0-10.0) 03/30/17 06:06 Eosinophils % 1.5 % (0.0-5.0) 03/30/17 06:06 Basophils % 1.1 % (0.0-2.0) 03/30/17 06:06 PT 10.0 SECONDS (9.5-11.5) 03/27/17 22:42 INR 0.96 (0.5-1.4) 03/27/17 22:42 PTT (Actin FS) 29.6 SECONDS (26.0-38.0) 03/27/17 22:42 Sodium 134 mEq/L (136-145) L 03/30/17 06:06 Potassium 2.9 mEq/L (3.5-5.1) L* 03/30/17 06:06 Chloride 101 mEq/L (98-107) 03/30/17 06:06 Carbon Dioxide 22.0 mEq/L (21.0-31.0) 03/30/17 06:06 Anion Gap 13.9 (7.0-16.0) 03/30/17 06:06 BUN 11 mg/dL (7-25) 03/30/17 06:06 Creatinine 0.9 mg/dL (0.6-1.2) 03/30/17 06:06 Est GFR ( Amer) > 60.0 ml/min (>90) 03/30/17 06:06 Est GFR (Non-Af Amer) > 60.0 ml/min 03/30/17 06:06 BUN/Creatinine Ratio 12.2 03/30/17 06:06 Glucose 151 mg/dL (70-105) H 03/30/17 06:06 POC Glucose 188 MG/DL (70 - 105) H 03/31/17 12:43 Hemoglobin A1c % 6.6 % (4.0-6.0) H 03/27/17 22:42 Whole Bld Lactic Acid 1.44 mmol/L (0.60-1.99) 03/27/17 22:42 Calcium 9.1 mg/dL (8.6-10.3) 03/30/17 06:06 Magnesium 2.0 mg/dL (1.9-2.7) 03/27/17 22:42 Total Bilirubin 0.8 mg/dL (0.3-1.0) 03/27/17 22:42 AST 14 U/L (13-39) 03/27/17 22:42 ALT 7 U/L (7-52) 03/27/17 22:42 Alkaline Phosphatase 65 U/L (34-104) 03/27/17 22:42 Creatine Kinase 22 U/L (30-223) L 03/27/17 22:42 Troponin I 0.01 ng/mL (0.01-0.05) 03/28/17 18:26 Total Protein 7.3 gm/dL (6.0-8.3) 03/27/17 22:42 Albumin 4.2 gm/dL (3.7-5.3) 03/27/17 22:42 Globulin 3.1 gm/dL 03/27/17 22:42 Albumin/Globulin Ratio 1.4 (1.0-1.8) 03/27/17 22:42 Triglycerides 321 mg/dL (<150) H 03/28/17 05:50 Cholesterol 226 mg/dL (<200) H 03/28/17 05:50 LDL Cholesterol Direct 131 mg/dL (75-193) 03/28/17 05:50 HDL Cholesterol 41 mg/dL (23-92) 03/28/17 05:50 TSH 1.56 uIU/ml (0.34-5.60) 03/28/17 05:50 Urine Source CLEAN C 03/30/17 12:15 Urine Color YELLOW 03/30/17 12:15 Urine Clarity CLEAR (CLEAR) 03/30/17 12:15 Urine pH 6.0 (4.6 - 8.0) 03/30/17 12:15 Ur Specific [place] 1.010 (1.005-1.030) 03/30/17 12:15 Urine Protein TRACE mg/dL (NEGATIVE) 03/30/17 12:15 Urine Glucose (UA) NEGATIVE mg/dL (NEGATIVE) 03/30/17 12:15 Urine Ketones 40 mg/dL (NEGATIVE) H 03/30/17 12:15 Urine Blood NEGATIVE (NEGATIVE) 03/30/17 12:15 Urine Nitrate POSITIVE (NEGATIVE) H 03/30/17 12:15 Urine Bilirubin SMALL (NEGATIVE) H 03/30/17 12:15 Urine Urobilinogen 0.2 E.U./dL (0.2 - 1.0) 03/30/17 12:15 Ur Leukocyte Esterase SMALL (NEGATIVE) H 03/30/17 12:15 Urine RBC 0-2 /hpf (0-5) 03/30/17 12:15 Urine WBC 6-10 /hpf (0-5) H 03/30/17 12:15 Ur Epithelial Cells NONE SEEN /lpf (FEW) 03/30/17 12:15 Urine Bacteria FEW /hpf (NONE SEEN) 03/30/17 12:15 - Physical Exam Vitals and I&O: Vital Signs Temp 97.2 F 03/31/17 04:00 Pulse 65 03/31/17 09:50 Resp 18 03/31/17 04:00 BP 140/67 03/31/17 09:50 Pulse Ox 96 03/31/17 04:00 Intake & Output 03/30/17 03/31/17 03/31/17 18:59 06:59 18:59 Intake Total 200 Balance 200 Weight (lbs) 55.338 kg 55.338 kg Intake: Oral 200 Other: # Voids 2 3 Active Medications: Current Medications Acetaminophen (Tylenol) 650 mg PO Q4HR PRN PRN Reason: Mild Pain / Temp above 100 Stop: 05/26/17 23:49 Last Admin: 03/29/17 21:14 Dose: 650 mg Al Hydrox/Mg Hydrox/Simethicone (Maalox) 30 ml PO Q4HR PRN PRN Reason: GI DISTRESS Stop: 05/26/17 23:49 Carvedilol (Coreg) 12.5 mg PO BID [facility] Stop: 05/27/17 08:59 Last Admin: 03/31/17 09:50 Dose: 12.5 mg Duloxetine HCl (Cymbalta) 120 mg PO DAILY DEVAUGHN PRN Reason: Protocol Stop: 05/27/17 08:59 Last Admin: 03/31/17 12:21 Dose: 120 mg Enalaprilat (Vasotec) 1.25 mg IVP Q6HR PRN PRN Reason: BLOOD PRESSSURE Stop: 05/27/17 11:59 Last Admin: 03/28/17 15:59 Dose: 1.25 mg Enoxaparin Sodium (Lovenox) 40 mg SUBQ DAILY [facility] Stop: 05/27/17 08:59 Last Admin: 03/31/17 09:50 Dose: Not Given Ergocalciferol (Vitamin D) 50,000 iu PO We@0900 [facility] Stop: 05/29/17 08:59 Last Admin: 03/30/17 09:21 Dose: Not Given Gabapentin (Neurontin) 800 mg PO Q8H [facility] Stop: 05/27/17 13:59 Last Admin: 03/31/17 14:49 Dose: 800 mg Sodium Chloride (Nacl 0.9%) 1,000 mls @ 75 mls/hr IV .[id number] [facility] Stop: 05/26/17 23:46 Last Admin: 03/29/17 00:56 Dose: 75 mls/hr Insulin Aspart (Novolog Insulin Sliding Scale) 0 units SUBQ ACHS [facility]N PRN Reason: Protocol Stop: 05/27/17 07:29 Last Admin: 03/31/17 07:01 Dose: Not Given Levofloxacin (Levaquin) 250 mg PO DAILY [facility] Stop: 05/30/17 08:59 Last Admin: 03/31/17 09:51 Dose: 250 mg Magnesium Hydroxide (Milk Of Magnesia) 30 ml PO HS PRN PRN Reason: Constipation Stop: 05/26/17 23:49 Mirtazapine (Remeron) 15 mg PO HS [facility]N PRN Reason: Protocol Stop: 05/27/17 20:59 Last Admin: 03/30/17 20:20 Dose: Not Given Multivitamins/Vitamin C (Theragran) 1 tab PO DAILY [facility] Stop: 05/27/17 08:59 Last Admin: 03/31/17 09:51 Dose: 1 tab Mupirocin (Bactroban Oint) 1 appl NS BID [facility] Stop: 04/04/17 17:01 Last Admin: 03/31/17 12:27 Dose: 1 appl Pantoprazole Sodium (Protonix) 40 mg PO QDAC [facility] Stop: 05/27/17 07:29 Last Admin: 03/31/17 14:59 Dose: Not Given Tramadol HCl (Ultram) 50 mg PO Q4H PRN PRN Reason: Pain (Moderate) Stop: 05/26/17 23:49 Last Admin: 03/31/17 14:22 Dose: 50 mg Trazodone HCl (Desyrel) 100 mg PO HS [facility] PRN Reason: Protocol Stop: 05/27/17 20:59 Last Admin: 03/30/17 20:20 Dose: Not Given General: no acute distress, well developed, well nourished HEENT: atraumatic, normocephalic, PERRLA, EOMI, moist mucous membrane Neck: supple, no thyromegaly Cardiovascular: S1S2, regular Lungs: clear to auscultation bilaterally, clear to percussion Abdomen: soft, no tender, no distended, no mass Extremities: no cyanosis, no clubbing, no edema Neurological: awake, alert, oriented Skin: intact Infectious Disease Assmt/Plan - Problem List Patient Problems: All Active Problems Dehydration (Acute) E86.0 Diabetes (Acute) E11.9 Hypokalemia (Acute) E87.6 Hyponatremia (Acute) E87.1 h/o schizophrenia (Acute) history of psychotic disorder (Acute) history of severe depression (Acute) - Assessment Assessment: 1. UTI. 2. Chronic back pain. 3. Schizophrenia. 4. DM2. - Plan Plan: Continue levaquin. Nutritional Asmnt/Malnutr-PDOC - Dietary Evaluation Malnutrition Findings (Please click <Entered> for more info): Nutritional Asmnt/Malnutrition Start: 03/28/17 10: 46 Text: Status: Complete Freq: Document 03/28/17 10:46 MILAD (Rec: 03/28/17 10:59 [email or web address] YESICA- FNS1) Nutritional Asmnt/Malnutrition Patient General Information Nutritional Screening High Risk Screening Diagnosis Syncope-dehydration Pertinent Medical Hx/Surgical Hx Diabetes, Idiopathic peripheral neuropathy, insomnia, GERD, chronic pain syndrome, Traumatic brain injury Subjective Information Patient was admitted from [facility] after refusing to eat, drink or take medications and having a syncopal episode. Patient continues to refuse some medical testing. Did not eat breakfast this morning. Current Diet Order/ Nutrition Support CCHO 90gm, LOURDES Patient / S.O Not Indicated Pertinent Medications maalox, vitamin D, novolog, MOM, Theragran Pertinent Labs (03/28) Na 134, K 3.4, glucose 246 (POC glucose 276),TAG 321, Cholesterol 226, HgA1C 6.6, Calcium 10.4 Nutritional Hx/Data Height 1.63 m Height (Calculated Centimeters) 162.6 Current Weight (lbs) 51.256 kg Weight (Calculated Kilograms) 51.3 Weight (Calculated Grams) 04063.9 [place] Body Weight 130 % [place] Body Weight 86 Weight Status Approriate GI Symptoms GI Symptoms None Food Allergies No Cultural/Ethnic/Latter-Day Belief None indicated Usual diet at home Unknown Skin Integrity/Comment: Carlos 15, abrasion/ulceration on upper right abdomen Current %PO Negligible < 25% Estimated Nutritional Goals BEE in Kcals: Using Current wt Calories/Kcals/Kg (27-32 kcal/kg) - 86% IBW Kcals Calculated 4329-4826 kcal/day Protein: Using Current wt Protein g/k.1-1.3 gm/kg - ulceration and underweight Protein Calculated 56-66 gm/day Fluid: ml 4589-1028 ml/day (1ml/kcal) Nutritional Problem 2. Problem Problem Altered nutrition related lab values related to Etiology uncontrolled hyperglycemia, electrolyte imbalance Signs/Symptoms: Na 134, k 3.4, glucose 246 ( POC glucose 276), Calcium 10.4 1. Problem Problem Inadequate oral intake related to Etiology refusing meals/unknown reason aeb Signs/Symptoms: meeting <25% of nutrient needs , refusing meals prior to admission. Intervention/Recommendation Comments 1. Modify Diet to 60gm CCHO, LOURDES as tolerated by patient ( for better blood glucose control). 2. MD to modify insulin regimen and repalce lytes as needed. 3. consider adding Boost Glucose control TID with meals to supplement oral intake. 4. Nursing staff to supervise meals and encourage oral intake. Expected Outcomes/Goals Expected Outcomes/Goals Oral intake to meet >75% of estimated nutrient needs, weight stable or trends toward ideal body weight, Ca, Na, K and blood glucose levels normalize. F/U in 3-5 days as Moderate risk (03/31-04/02)
--- NOTE | 2017-04-01 00:04 | Consultation ---
DATE OF CONSULTATION: 03/31/2017 HISTORY OF PRESENT ILLNESS: The patient was seen, chart reviewed, and discussed with staff. This is a 61-year-old female with behavioral disturbances, odd behaviors, asking for medications, and refusing them, complaining of pain, that time refusing pain medications, after she asks for them, not eating anything, states that she does not eat because of "pain." The patient is minimally responsive to me. She states that she is depressed. Noted to be withdrawn. PAST PSYCHIATRIC HISTORY: [facility]. SOCIAL HISTORY: Staying at SNF. MENTAL STATUS EXAMINATION: Stated age, some eye contact. Speech not spontaneous. Mood is "I'm in pain." Affect flat. Thought processes were fragmented. Thought content, no overt SI or HI. It is unclear if she is having any psychotic symptoms or paranoia. PROVISIONAL DIAGNOSIS: Mood, unspecified; major depressive disorder; also concerns about borderline traits. RECOMMENDATIONS AND PLAN: Continue to monitor closely. Continue 72-hour hold. The patient does not make any improvements in regards to her p.o. intake and odd behaviors. We will recommend Geropsych placement. The patient may need a [place] petition if her behaviors do not improve. Given her unwillingness to take medications for unclear reasons and ongoing behavioral disturbances, preventing discharge to a lower level of care. [facility]# [id number]
[2017-04-01] MEDS: INSULIN ASPART SLIDING SCALE 100 UNITS/ML UNIT SUBQ SCH ×4 (08:02→21:25)
--- NOTE | 2017-04-01 08:16 | General Progress Note ---
Subjective - Review of Systems Events since last encounter: no change, no distress Subjective: pt is refusing all meds hypokalemia Objective - Results Result Diagrams: 03/30/17 06:06 03/30/17 06:06 Recent Labs: Laboratory Last Values WBC 4.6 Th/cmm (4.8-10.8) L 03/30/17 06:06 RBC 3.70 Mil/cmm (3.80-5.10) L 03/30/17 06:06 Hgb 11.0 gm/dL (11.7-15.5) L 03/30/17 06:06 Hct 32.4 % (35.0-45.0) L D 03/30/17 06:06 MCV 87.6 fl (81-100) 03/30/17 06:06 MCH 29.9 pg (27.0-31.0) 03/30/17 06:06 MCHC Differential 34.1 pg (28.0-36.0) 03/30/17 06:06 RDW 15.0 % (11.5-20.0) 03/30/17 06:06 Plt Count 181 Th/cmm (150-400) D 03/30/17 06:06 MPV 6.9 fl 03/30/17 06:06 Neutrophils % 58.1 % (40.0-80.0) 03/30/17 06:06 Lymphocytes % 31.9 % (20.0-50.0) 03/30/17 06:06 Monocytes % 7.4 % (2.0-10.0) 03/30/17 06:06 Eosinophils % 1.5 % (0.0-5.0) 03/30/17 06:06 Basophils % 1.1 % (0.0-2.0) 03/30/17 06:06 PT 10.0 SECONDS (9.5-11.5) 03/27/17 22:42 INR 0.96 (0.5-1.4) 03/27/17 22:42 PTT (Actin FS) 29.6 SECONDS (26.0-38.0) 03/27/17 22:42 Sodium 134 mEq/L (136-145) L 03/30/17 06:06 Potassium 2.9 mEq/L (3.5-5.1) L* 03/30/17 06:06 Chloride 101 mEq/L (98-107) 03/30/17 06:06 Carbon Dioxide 22.0 mEq/L (21.0-31.0) 03/30/17 06:06 Anion Gap 13.9 (7.0-16.0) 03/30/17 06:06 BUN 11 mg/dL (7-25) 03/30/17 06:06 Creatinine 0.9 mg/dL (0.6-1.2) 03/30/17 06:06 Est GFR ( Amer) > 60.0 ml/min (>90) 03/30/17 06:06 Est GFR (Non-Af Amer) > 60.0 ml/min 03/30/17 06:06 BUN/Creatinine Ratio 12.2 03/30/17 06:06 Glucose 151 mg/dL (70-105) H 03/30/17 06:06 POC Glucose 146 MG/DL (70 - 105) H 03/31/17 20:55 Hemoglobin A1c % 6.6 % (4.0-6.0) H 03/27/17 22:42 Whole Bld Lactic Acid 1.44 mmol/L (0.60-1.99) 03/27/17 22:42 Calcium 9.1 mg/dL (8.6-10.3) 03/30/17 06:06 Magnesium 2.0 mg/dL (1.9-2.7) 03/27/17 22:42 Total Bilirubin 0.8 mg/dL (0.3-1.0) 03/27/17 22:42 AST 14 U/L (13-39) 03/27/17 22:42 ALT 7 U/L (7-52) 03/27/17 22:42 Alkaline Phosphatase 65 U/L (34-104) 03/27/17 22:42 Creatine Kinase 22 U/L (30-223) L 03/27/17 22:42 Troponin I 0.01 ng/mL (0.01-0.05) 03/28/17 18:26 Total Protein 7.3 gm/dL (6.0-8.3) 03/27/17 22:42 Albumin 4.2 gm/dL (3.7-5.3) 03/27/17 22:42 Globulin 3.1 gm/dL 03/27/17 22:42 Albumin/Globulin Ratio 1.4 (1.0-1.8) 03/27/17 22:42 Triglycerides 321 mg/dL (<150) H 03/28/17 05:50 Cholesterol 226 mg/dL (<200) H 03/28/17 05:50 LDL Cholesterol Direct 131 mg/dL (75-193) 03/28/17 05:50 HDL Cholesterol 41 mg/dL (23-92) 03/28/17 05:50 TSH 1.56 uIU/ml (0.34-5.60) 03/28/17 05:50 Urine Source CLEAN C 03/30/17 12:15 Urine Color YELLOW 03/30/17 12:15 Urine Clarity CLEAR (CLEAR) 03/30/17 12:15 Urine pH 6.0 (4.6 - 8.0) 03/30/17 12:15 Ur Specific [place] 1.010 (1.005-1.030) 03/30/17 12:15 Urine Protein TRACE mg/dL (NEGATIVE) 03/30/17 12:15 Urine Glucose (UA) NEGATIVE mg/dL (NEGATIVE) 03/30/17 12:15 Urine Ketones 40 mg/dL (NEGATIVE) H 03/30/17 12:15 Urine Blood NEGATIVE (NEGATIVE) 03/30/17 12:15 Urine Nitrate POSITIVE (NEGATIVE) H 03/30/17 12:15 Urine Bilirubin SMALL (NEGATIVE) H 03/30/17 12:15 Urine Urobilinogen 0.2 E.U./dL (0.2 - 1.0) 03/30/17 12:15 Ur Leukocyte Esterase SMALL (NEGATIVE) H 03/30/17 12:15 Urine RBC 0-2 /hpf (0-5) 03/30/17 12:15 Urine WBC 6-10 /hpf (0-5) H 03/30/17 12:15 Ur Epithelial Cells NONE SEEN /lpf (FEW) 03/30/17 12:15 Urine Bacteria FEW /hpf (NONE SEEN) 03/30/17 12:15 - Physical Exam Vitals and I&O: Vital Signs Temp 97.7 F 04/01/17 00:52 Pulse 60 04/01/17 00:52 Resp 18 04/01/17 00:52 BP 103/62 04/01/17 00:52 Pulse Ox 97 04/01/17 00:52 Intake & Output 03/31/17 04/01/17 04/01/17 18:59 06:59 18:59 Intake Total 120 Balance 120 Weight (lbs) 55.338 kg 55.338 kg Intake: Oral 120 Active Medications: Current Medications Acetaminophen (Tylenol) 650 mg PO Q4HR PRN PRN Reason: Mild Pain / Temp above 100 Stop: 05/26/17 23:49 Last Admin: 03/31/17 21:47 Dose: 650 mg Al Hydrox/Mg Hydrox/Simethicone (Maalox) 30 ml PO Q4HR PRN PRN Reason: GI DISTRESS Stop: 05/26/17 23:49 Carvedilol (Coreg) 12.5 mg PO BID [facility] Stop: 05/27/17 08:59 Last Admin: 03/31/17 09:50 Dose: 12.5 mg Duloxetine HCl (Cymbalta) 120 mg PO DAILY [facility]AUGHN PRN Reason: Protocol Stop: 05/27/17 08:59 Last Admin: 03/31/17 12:21 Dose: 120 mg Enalaprilat (Vasotec) 1.25 mg IVP Q6HR PRN PRN Reason: BLOOD PRESSSURE Stop: 05/27/17 11:59 Last Admin: 03/28/17 15:59 Dose: 1.25 mg Enoxaparin Sodium (Lovenox) 40 mg SUBQ DAILY [facility] Stop: 05/27/17 08:59 Last Admin: 03/31/17 09:50 Dose: Not Given Ergocalciferol (Vitamin D) 50,000 iu PO We@0900 [facility] Stop: 05/29/17 08:59 Last Admin: 03/30/17 09:21 Dose: Not Given Gabapentin (Neurontin) 800 mg PO Q8H [facility] Stop: 05/27/17 13:59 Last Admin: 04/01/17 05:55 Dose: Not Given Sodium Chloride (Nacl 0.9%) 1,000 mls @ 75 mls/hr IV .[id number] [facility] Stop: 05/26/17 23:46 Last Admin: 03/29/17 00:56 Dose: 75 mls/hr Insulin Aspart (Novolog Insulin Sliding Scale) 0 units SUBQ ACHS [facility]N PRN Reason: Protocol Stop: 05/27/17 07:29 Last Admin: 04/01/17 08:02 Dose: Not Given Levofloxacin (Levaquin) 250 mg PO DAILY [facility] Stop: 05/30/17 08:59 Last Admin: 03/31/17 09:51 Dose: 250 mg Magnesium Hydroxide (Milk Of Magnesia) 30 ml PO HS PRN PRN Reason: Constipation Stop: 05/26/17 23:49 Mirtazapine (Remeron) 15 mg PO HS [facility] PRN Reason: Protocol Stop: 05/27/17 20:59 Last Admin: 03/31/17 21:46 Dose: 15 mg Multivitamins/Vitamin C (Theragran) 1 tab PO DAILY [facility] Stop: 05/27/17 08:59 Last Admin: 03/31/17 09:51 Dose: 1 tab Mupirocin (Bactroban Oint) 1 appl NS BID [facility] Stop: 04/04/17 17:01 Last Admin: 03/31/17 17:48 Dose: Not Given Pantoprazole Sodium (Protonix) 40 mg PO QDAC [facility] Stop: 05/27/17 07:29 Last Admin: 03/31/17 14:59 Dose: Not Given Tramadol HCl (Ultram) 50 mg PO Q4H PRN PRN Reason: Pain (Moderate) Stop: 05/26/17 23:49 Last Admin: 03/31/17 14:22 Dose: 50 mg Trazodone HCl (Desyrel) 100 mg PO HS [facility]N PRN Reason: Protocol Stop: 05/27/17 20:59 Last Admin: 03/31/17 21:46 Dose: 100 mg General: No acute distress HEENT: Atraumatic, PERRLA Neck: Thyromegaly Cardiovascular: Regular rate, Normal S1, Normal S2 Lungs: Clear to auscultation Abdomen: Bowel sounds Assessment/Plan - Problem List Patient Problems: All Active Problems Dehydration (Acute) E86.0 Diabetes (Acute) E11.9 Hypokalemia (Acute) E87.6 Hyponatremia (Acute) E87.1 h/o schizophrenia (Acute) history of psychotic disorder (Acute) history of severe depression (Acute) - Plan Plan: will monitor vitals/diet labs psych as per order sheet Nutritional Asmnt/Malnutr-PDOC - Dietary Evaluation Malnutrition Findings (Please click <Entered> for more info): Nutritional Asmnt/Malnutrition Start: 03/28/17 10: 46 Text: Status: Complete Freq: Document 03/28/17 10:46 JOHNNIEGURMEET (Rec: 03/28/17 10:59 MILAD YESICA- FNS1) Nutritional Asmnt/Malnutrition Patient General Information Nutritional Screening High Risk Screening Diagnosis Syncope-dehydration Pertinent Medical Hx/Surgical Hx Diabetes, Idiopathic peripheral neuropathy, insomnia, GERD, chronic pain syndrome, Traumatic brain injury Subjective Information Patient was admitted from [facility] after refusing to eat, drink or take medications and having a syncopal episode. Patient continues to refuse some medical testing. Did not eat breakfast this morning. Current Diet Order/ Nutrition Support CCHO 90gm, LOURDES Patient / S.O Not Indicated Pertinent Medications maalox, vitamin D, novolog, MOM, Theragran Pertinent Labs (03/28) Na 134, K 3.4, glucose 246 (POC glucose 276),TAG 321, Cholesterol 226, HgA1C 6.6, Calcium 10.4 Nutritional Hx/Data Height 1.63 m Height (Calculated Centimeters) 162.6 Current Weight (lbs) 51.256 kg Weight (Calculated Kilograms) 51.3 Weight (Calculated Grams) 50204.9 [place] Body Weight 130 % [place] Body Weight 86 Weight Status Approriate GI Symptoms GI Symptoms None Food Allergies No Cultural/Ethnic/Lutheran Belief None indicated Usual diet at home Unknown Skin Integrity/Comment: [place] 15, abrasion/ulceration on upper right abdomen Current %PO Negligible < 25% Estimated Nutritional Goals BEE in Kcals: Using Current wt Calories/Kcals/Kg (27-32 kcal/kg) - 86% IBW Kcals Calculated 8507-3648 kcal/day Protein: Using Current wt Protein g/k.1-1.3 gm/kg - ulceration and underweight Protein Calculated 56-66 gm/day Fluid: ml 3356-9507 ml/day (1ml/kcal) Nutritional Problem 2. Problem Problem Altered nutrition related lab values related to Etiology uncontrolled hyperglycemia, electrolyte imbalance Signs/Symptoms: Na 134, k 3.4, glucose 246 ( POC glucose 276), Calcium 10.4 1. Problem Problem Inadequate oral intake related to Etiology refusing meals/unknown reason aeb Signs/Symptoms: meeting <25% of nutrient needs , refusing meals prior to admission. Intervention/Recommendation Comments 1. Modify Diet to 60gm CCHO, LOURDES as tolerated by patient ( for better blood glucose control). 2. MD to modify insulin regimen and repalce lytes as needed. 3. consider adding Boost Glucose control TID with meals to supplement oral intake. 4. Nursing staff to supervise meals and encourage oral intake. Expected Outcomes/Goals Expected Outcomes/Goals Oral intake to meet >75% of estimated nutrient needs, weight stable or trends toward ideal body weight, Ca, Na, K and blood glucose levels normalize. F/U in 3-5 days as Moderate risk (03/31-04/02)
[2017-04-01] MEDS: Multivitamin Tab PO SCH ×2 (08:43→10:11)
[2017-04-01] MEDS: Pantoprazole 40 mg EC Tab PO SCH ×2 (08:43→10:09)
[2017-04-01] MEDS: Enoxaparin 40 mg/0.4 mL 0.4mL Syr SUBQ SCH ×2 (09:35→10:10)
--- NOTE | 2017-04-01 19:23 | Infectious Disease Prog Note ---
Infectious Disease Subjective - Review of Systems Service Date: 04/01/17 Subjective: no fever. Infectious Disease Objective - Results Result Diagrams: 03/30/17 06:06 03/30/17 06:06 Recent Labs: Laboratory Last Values WBC 4.6 Th/cmm (4.8-10.8) L 03/30/17 06:06 RBC 3.70 Mil/cmm (3.80-5.10) L 03/30/17 06:06 Hgb 11.0 gm/dL (11.7-15.5) L 03/30/17 06:06 Hct 32.4 % (35.0-45.0) L D 03/30/17 06:06 MCV 87.6 fl (81-100) 03/30/17 06:06 MCH 29.9 pg (27.0-31.0) 03/30/17 06:06 MCHC Differential 34.1 pg (28.0-36.0) 03/30/17 06:06 RDW 15.0 % (11.5-20.0) 03/30/17 06:06 Plt Count 181 Th/cmm (150-400) D 03/30/17 06:06 MPV 6.9 fl 03/30/17 06:06 Neutrophils % 58.1 % (40.0-80.0) 03/30/17 06:06 Lymphocytes % 31.9 % (20.0-50.0) 03/30/17 06:06 Monocytes % 7.4 % (2.0-10.0) 03/30/17 06:06 Eosinophils % 1.5 % (0.0-5.0) 03/30/17 06:06 Basophils % 1.1 % (0.0-2.0) 03/30/17 06:06 PT 10.0 SECONDS (9.5-11.5) 03/27/17 22:42 INR 0.96 (0.5-1.4) 03/27/17 22:42 PTT (Actin FS) 29.6 SECONDS (26.0-38.0) 03/27/17 22:42 Sodium 134 mEq/L (136-145) L 03/30/17 06:06 Potassium 2.9 mEq/L (3.5-5.1) L* 03/30/17 06:06 Chloride 101 mEq/L (98-107) 03/30/17 06:06 Carbon Dioxide 22.0 mEq/L (21.0-31.0) 03/30/17 06:06 Anion Gap 13.9 (7.0-16.0) 03/30/17 06:06 BUN 11 mg/dL (7-25) 03/30/17 06:06 Creatinine 0.9 mg/dL (0.6-1.2) 03/30/17 06:06 Est GFR ( Amer) > 60.0 ml/min (>90) 03/30/17 06:06 Est GFR (Non-Af Amer) > 60.0 ml/min 03/30/17 06:06 BUN/Creatinine Ratio 12.2 03/30/17 06:06 Glucose 151 mg/dL (70-105) H 03/30/17 06:06 POC Glucose 173 MG/DL (70 - 105) H 04/01/17 16:36 Hemoglobin A1c % 6.6 % (4.0-6.0) H 03/27/17 22:42 Whole Bld Lactic Acid 1.44 mmol/L (0.60-1.99) 03/27/17 22:42 Calcium 9.1 mg/dL (8.6-10.3) 03/30/17 06:06 Magnesium 2.0 mg/dL (1.9-2.7) 03/27/17 22:42 Total Bilirubin 0.8 mg/dL (0.3-1.0) 03/27/17 22:42 AST 14 U/L (13-39) 03/27/17 22:42 ALT 7 U/L (7-52) 03/27/17 22:42 Alkaline Phosphatase 65 U/L (34-104) 03/27/17 22:42 Creatine Kinase 22 U/L (30-223) L 03/27/17 22:42 Troponin I 0.01 ng/mL (0.01-0.05) 03/28/17 18:26 Total Protein 7.3 gm/dL (6.0-8.3) 03/27/17 22:42 Albumin 4.2 gm/dL (3.7-5.3) 03/27/17 22:42 Globulin 3.1 gm/dL 03/27/17 22:42 Albumin/Globulin Ratio 1.4 (1.0-1.8) 03/27/17 22:42 Triglycerides 321 mg/dL (<150) H 03/28/17 05:50 Cholesterol 226 mg/dL (<200) H 03/28/17 05:50 LDL Cholesterol Direct 131 mg/dL (75-193) 03/28/17 05:50 HDL Cholesterol 41 mg/dL (23-92) 03/28/17 05:50 TSH 1.56 uIU/ml (0.34-5.60) 03/28/17 05:50 Urine Source CLEAN C 03/30/17 12:15 Urine Color YELLOW 03/30/17 12:15 Urine Clarity CLEAR (CLEAR) 03/30/17 12:15 Urine pH 6.0 (4.6 - 8.0) 03/30/17 12:15 Ur Specific [place] 1.010 (1.005-1.030) 03/30/17 12:15 Urine Protein TRACE mg/dL (NEGATIVE) 03/30/17 12:15 Urine Glucose (UA) NEGATIVE mg/dL (NEGATIVE) 03/30/17 12:15 Urine Ketones 40 mg/dL (NEGATIVE) H 03/30/17 12:15 Urine Blood NEGATIVE (NEGATIVE) 03/30/17 12:15 Urine Nitrate POSITIVE (NEGATIVE) H 03/30/17 12:15 Urine Bilirubin SMALL (NEGATIVE) H 03/30/17 12:15 Urine Urobilinogen 0.2 E.U./dL (0.2 - 1.0) 03/30/17 12:15 Ur Leukocyte Esterase SMALL (NEGATIVE) H 03/30/17 12:15 Urine RBC 0-2 /hpf (0-5) 03/30/17 12:15 Urine WBC 6-10 /hpf (0-5) H 03/30/17 12:15 Ur Epithelial Cells NONE SEEN /lpf (FEW) 03/30/17 12:15 Urine Bacteria FEW /hpf (NONE SEEN) 03/30/17 12:15 - Physical Exam Vitals and I&O: Vital Signs Temp 96.8 F 04/01/17 16:00 Pulse 60 04/01/17 17:03 Resp 20 04/01/17 16:00 BP 123/77 04/01/17 17:03 Pulse Ox 100 04/01/17 16:00 Intake & Output 04/01/17 04/01/17 04/02/17 06:59 18:59 06:59 Intake Total 120 0 Balance 120 0 Weight (lbs) 55.338 kg 55.338 kg Intake: Oral 120 0 Other: # Voids 4 # Bowel Movements 0 Active Medications: Current Medications Acetaminophen (Tylenol) 650 mg PO Q4HR PRN PRN Reason: Mild Pain / Temp above 100 Stop: 05/26/17 23:49 Last Admin: 04/01/17 16:35 Dose: 650 mg Al Hydrox/Mg Hydrox/Simethicone (Maalox) 30 ml PO Q4HR PRN PRN Reason: GI DISTRESS Stop: 05/26/17 23:49 Carvedilol (Coreg) 12.5 mg PO BID [facility] Stop: 05/27/17 08:59 Last Admin: 04/01/17 17:03 Dose: Not Given Duloxetine HCl (Cymbalta) 120 mg PO DAILY DEVAUGHN PRN Reason: Protocol Stop: 05/27/17 08:59 Last Admin: 04/01/17 10:10 Dose: Not Given Enalaprilat (Vasotec) 1.25 mg IVP Q6HR PRN PRN Reason: BLOOD PRESSSURE Stop: 05/27/17 11:59 Last Admin: 03/28/17 15:59 Dose: 1.25 mg Enoxaparin Sodium (Lovenox) 40 mg SUBQ DAILY [facility] Stop: 05/27/17 08:59 Last Admin: 04/01/17 10:10 Dose: Not Given Ergocalciferol (Vitamin D) 50,000 iu PO We@0900 [facility] Stop: 05/29/17 08:59 Last Admin: 03/30/17 09:21 Dose: Not Given Gabapentin (Neurontin) 800 mg PO Q8H [facility] Stop: 05/27/17 13:59 Last Admin: 04/01/17 13:52 Dose: Not Given Sodium Chloride (Nacl 0.9%) 1,000 mls @ 75 mls/hr IV .[id number] [facility] Stop: 05/26/17 23:46 Last Admin: 03/29/17 00:56 Dose: 75 mls/hr Insulin Aspart (Novolog Insulin Sliding Scale) 0 units SUBQ ACHS DEVAUGHN PRN Reason: Protocol Stop: 05/27/17 07:29 Last Admin: 04/01/17 17:02 Dose: Not Given Levofloxacin (Levaquin) 250 mg PO DAILY DEVAUGHN Stop: 05/30/17 08:59 Last Admin: 04/01/17 10:10 Dose: Not Given Magnesium Hydroxide (Milk Of Magnesia) 30 ml PO HS PRN PRN Reason: Constipation Stop: 05/26/17 23:49 Mirtazapine (Remeron) 15 mg PO HS DEVAUGHN PRN Reason: Protocol Stop: 05/27/17 20:59 Last Admin: 03/31/17 21:46 Dose: 15 mg Multivitamins/Vitamin C (Theragran) 1 tab PO DAILY DEVAUGHN Stop: 05/27/17 08:59 Last Admin: 04/01/17 10:11 Dose: Not Given Mupirocin (Bactroban Oint) 1 appl NS BID [facility]AUGHN Stop: 04/04/17 17:01 Last Admin: 04/01/17 16:19 Dose: 1 appl Pantoprazole Sodium (Protonix) 40 mg PO QDAC DEVAUGHN Stop: 05/27/17 07:29 Last Admin: 04/01/17 10:09 Dose: Not Given Tramadol HCl (Ultram) 50 mg PO Q4H PRN PRN Reason: Pain (Moderate) Stop: 05/26/17 23:49 Last Admin: 03/31/17 14:22 Dose: 50 mg Trazodone HCl (Desyrel) 100 mg PO HS DEVAUGHN PRN Reason: Protocol Stop: 05/27/17 20:59 Last Admin: 03/31/17 21:46 Dose: 100 mg General: no acute distress, well developed, well nourished HEENT: atraumatic, normocephalic, PERRLA, EOMI, moist mucous membrane Neck: supple, no thyromegaly Cardiovascular: S1S2, no regular Lungs: no clear to auscultation bilaterally, no clear to percussion Abdomen: soft, no tender Extremities: no cyanosis, no clubbing, no edema Neurological: awake, alert, oriented Skin: intact Infectious Disease Assmt/Plan - Problem List Patient Problems: All Active Problems Dehydration (Acute) E86.0 Diabetes (Acute) E11.9 Hypokalemia (Acute) E87.6 Hyponatremia (Acute) E87.1 h/o schizophrenia (Acute) history of psychotic disorder (Acute) history of severe depression (Acute) - Assessment Assessment: 1. UTI. 2. Chronic back pain. 3. Schizophrenia. 4. DM2. - Plan Plan: Continue levaquin. Nutritional Asmnt/Malnutr-PDOC - Dietary Evaluation Malnutrition Findings (Please click <Entered> for more info): Nutritional Asmnt/Malnutrition Start: 03/28/17 10: 46 Text: Status: Complete Freq: Document 03/28/17 10:46 MILAD (Rec: 03/28/17 10:59 [email or web address] YESICA- [email or web address]) Nutritional Asmnt/Malnutrition Patient General Information Nutritional Screening High Risk Screening Diagnosis Syncope-dehydration Pertinent Medical Hx/Surgical Hx Diabetes, Idiopathic peripheral neuropathy, insomnia, GERD, chronic pain syndrome, Traumatic brain injury Subjective Information Patient was admitted from [facility] after refusing to eat, drink or take medications and having a syncopal episode. Patient continues to refuse some medical testing. Did not eat breakfast this morning. Current Diet Order/ Nutrition Support CCHO 90gm, LOURDES Patient / S.O Not Indicated Pertinent Medications maalox, vitamin D, novolog, MOM, Theragran Pertinent Labs (03/28) Na 134, K 3.4, glucose 246 (POC glucose 276),TAG 321, Cholesterol 226, HgA1C 6.6, Calcium 10.4 Nutritional Hx/Data Height 1.63 m Height (Calculated Centimeters) 162.6 Current Weight (lbs) 51.256 kg Weight (Calculated Kilograms) 51.3 Weight (Calculated Grams) 74452.9 [place] Body Weight 130 % [place] Body Weight 86 Weight Status Approriate GI Symptoms GI Symptoms None Food Allergies No Cultural/Ethnic/Rastafarian Belief None indicated Usual diet at home Unknown Skin Integrity/Comment: Carlos 15, abrasion/ulceration on upper right abdomen Current %PO Negligible < 25% Estimated Nutritional Goals BEE in Kcals: Using Current wt Calories/Kcals/Kg (27-32 kcal/kg) - 86% IBW Kcals Calculated 4639-3991 kcal/day Protein: Using Current wt Protein g/k.1-1.3 gm/kg - ulceration and underweight Protein Calculated 56-66 gm/day Fluid: ml 4695-5647 ml/day (1ml/kcal) Nutritional Problem 2. Problem Problem Altered nutrition related lab values related to Etiology uncontrolled hyperglycemia, electrolyte imbalance Signs/Symptoms: Na 134, k 3.4, glucose 246 ( POC glucose 276), Calcium 10.4 1. Problem Problem Inadequate oral intake related to Etiology refusing meals/unknown reason aeb Signs/Symptoms: meeting <25% of nutrient needs , refusing meals prior to admission. Intervention/Recommendation Comments 1. Modify Diet to 60gm CCHO, LOURDES as tolerated by patient ( for better blood glucose control). 2. MD to modify insulin regimen and repalce lytes as needed. 3. consider adding Boost Glucose control TID with meals to supplement oral intake. 4. Nursing staff to supervise meals and encourage oral intake. Expected Outcomes/Goals Expected Outcomes/Goals Oral intake to meet >75% of estimated nutrient needs, weight stable or trends toward ideal body weight, Ca, Na, K and blood glucose levels normalize. F/U in 3-5 days as Moderate risk (03/31-04/02)
--- NOTE | 2017-04-02 01:08 | Consultation ---
DATE OF CONSULTATION: 04/01/2017 HISTORY OF PRESENT ILLNESS: A 61-year-old female who is currently on the Med/Surg Unit, multiple medical problems, but importantly she is refusing treatment, IVs, not eating anything and not taking any medications; however, she is taking her pain medications. It is unclear if she is having any psychotic symptoms. She is denying. However, she does seem preoccupied, somewhat slow to respond, currently on a one-to-one. Staff concerned, they are encouraging her to eat. On a positive note she is noting that she will eat. She states that she is agreeable to eat and she states today that she is agreeable to take her medications. I am considering a [employer] petition; however, given that she is verbalizing that she will take her medications and begin to eat, I will hold off for now; however, I am concerned that she is not getting any fluids in her. The patient is denying any overt depression, but she is quite withdrawn, minimally interactive. ASSESSMENT: The patient remains symptomatic, still not eating, not drinking, refusing IVs, only taking pain medications. PAST MEDICAL HISTORY: Please see full H and P. MENTAL STATUS EXAMINATION: Stated age. Fair eye contact. Speech is impoverished. Mood is "okay." Affect flat. Thought processes were impoverished, withdrawn, not saying much, difficult to fully assess, appears preoccupied. Denying any SI, no HI. States that she does not want to . Denies any auditory or visual hallucinations. Denies any paranoia. Insight and judgment diminished. PROVISIONAL DIAGNOSIS: Major depression, recurrent, severe. MEDICAL: Please see full H and P. PROGNOSIS: I am concerned about this patient. She may need a [employer] petition, but is verbalizing that she will start taking her medications. She states that she wants to get better, "I do not want to ." We will monitor for now, but if there are continued declines or continued refusals of medications and especially food then I will pursue a [employer] petition or will sign out to on-call doctor to fill out a [employer] petition. JOB# [id number]
[2017-04-02] MEDS: INSULIN ASPART SLIDING SCALE 100 UNITS/ML UNIT SUBQ SCH ×4 (06:48→22:26)
[2017-04-02] MEDS: Enoxaparin 40 mg/0.4 mL 0.4mL Syr SUBQ SCH (09:45)
[2017-04-02] MEDS: Multivitamin Tab PO SCH (09:46)
[2017-04-02] MEDS: Pantoprazole 40 mg EC Tab PO SCH (10:41)
--- NOTE | 2017-04-02 16:20 | Internal Medicine Prog Note ---
Internal Medicine Subjective - Subjective Patient is:: awake, other (no distress ) Internal Medicine Objective - Results Result Diagrams: 03/30/17 06:06 03/30/17 06:06 Recent Labs: Laboratory Last Values WBC 4.6 Th/cmm (4.8-10.8) L 03/30/17 06:06 RBC 3.70 Mil/cmm (3.80-5.10) L 03/30/17 06:06 Hgb 11.0 gm/dL (11.7-15.5) L 03/30/17 06:06 Hct 32.4 % (35.0-45.0) L D 03/30/17 06:06 MCV 87.6 fl (81-100) 03/30/17 06:06 MCH 29.9 pg (27.0-31.0) 03/30/17 06:06 MCHC Differential 34.1 pg (28.0-36.0) 03/30/17 06:06 RDW 15.0 % (11.5-20.0) 03/30/17 06:06 Plt Count 181 Th/cmm (150-400) D 03/30/17 06:06 MPV 6.9 fl 03/30/17 06:06 Neutrophils % 58.1 % (40.0-80.0) 03/30/17 06:06 Lymphocytes % 31.9 % (20.0-50.0) 03/30/17 06:06 Monocytes % 7.4 % (2.0-10.0) 03/30/17 06:06 Eosinophils % 1.5 % (0.0-5.0) 03/30/17 06:06 Basophils % 1.1 % (0.0-2.0) 03/30/17 06:06 PT 10.0 SECONDS (9.5-11.5) 03/27/17 22:42 INR 0.96 (0.5-1.4) 03/27/17 22:42 PTT (Actin FS) 29.6 SECONDS (26.0-38.0) 03/27/17 22:42 Sodium 134 mEq/L (136-145) L 03/30/17 06:06 Potassium 2.9 mEq/L (3.5-5.1) L* 03/30/17 06:06 Chloride 101 mEq/L (98-107) 03/30/17 06:06 Carbon Dioxide 22.0 mEq/L (21.0-31.0) 03/30/17 06:06 Anion Gap 13.9 (7.0-16.0) 03/30/17 06:06 BUN 11 mg/dL (7-25) 03/30/17 06:06 Creatinine 0.9 mg/dL (0.6-1.2) 03/30/17 06:06 Est GFR ( Amer) > 60.0 ml/min (>90) 03/30/17 06:06 Est GFR (Non-Af Amer) > 60.0 ml/min 03/30/17 06:06 BUN/Creatinine Ratio 12.2 03/30/17 06:06 Glucose 151 mg/dL (70-105) H 03/30/17 06:06 POC Glucose 135 MG/DL (70 - 105) H 04/02/17 11:25 Hemoglobin A1c % 6.6 % (4.0-6.0) H 03/27/17 22:42 Whole Bld Lactic Acid 1.44 mmol/L (0.60-1.99) 03/27/17 22:42 Calcium 9.1 mg/dL (8.6-10.3) 03/30/17 06:06 Magnesium 2.0 mg/dL (1.9-2.7) 03/27/17 22:42 Total Bilirubin 0.8 mg/dL (0.3-1.0) 03/27/17 22:42 AST 14 U/L (13-39) 03/27/17 22:42 ALT 7 U/L (7-52) 03/27/17 22:42 Alkaline Phosphatase 65 U/L (34-104) 03/27/17 22:42 Creatine Kinase 22 U/L (30-223) L 03/27/17 22:42 Troponin I 0.01 ng/mL (0.01-0.05) 03/28/17 18:26 Total Protein 7.3 gm/dL (6.0-8.3) 03/27/17 22:42 Albumin 4.2 gm/dL (3.7-5.3) 03/27/17 22:42 Globulin 3.1 gm/dL 03/27/17 22:42 Albumin/Globulin Ratio 1.4 (1.0-1.8) 03/27/17 22:42 Triglycerides 321 mg/dL (<150) H 03/28/17 05:50 Cholesterol 226 mg/dL (<200) H 03/28/17 05:50 LDL Cholesterol Direct 131 mg/dL (75-193) 03/28/17 05:50 HDL Cholesterol 41 mg/dL (23-92) 03/28/17 05:50 TSH 1.56 uIU/ml (0.34-5.60) 03/28/17 05:50 Urine Source CLEAN C 03/30/17 12:15 Urine Color YELLOW 03/30/17 12:15 Urine Clarity CLEAR (CLEAR) 03/30/17 12:15 Urine pH 6.0 (4.6 - 8.0) 03/30/17 12:15 Ur Specific [place] 1.010 (1.005-1.030) 03/30/17 12:15 Urine Protein TRACE mg/dL (NEGATIVE) 03/30/17 12:15 Urine Glucose (UA) NEGATIVE mg/dL (NEGATIVE) 03/30/17 12:15 Urine Ketones 40 mg/dL (NEGATIVE) H 03/30/17 12:15 Urine Blood NEGATIVE (NEGATIVE) 03/30/17 12:15 Urine Nitrate POSITIVE (NEGATIVE) H 03/30/17 12:15 Urine Bilirubin SMALL (NEGATIVE) H 03/30/17 12:15 Urine Urobilinogen 0.2 E.U./dL (0.2 - 1.0) 03/30/17 12:15 Ur Leukocyte Esterase SMALL (NEGATIVE) H 03/30/17 12:15 Urine RBC 0-2 /hpf (0-5) 03/30/17 12:15 Urine WBC 6-10 /hpf (0-5) H 03/30/17 12:15 Ur Epithelial Cells NONE SEEN /lpf (FEW) 03/30/17 12:15 Urine Bacteria FEW /hpf (NONE SEEN) 03/30/17 12:15 - Physical Exam Vitals and I&O: Vital Signs Temp 97.8 F 04/02/17 12:00 Pulse 76 04/02/17 12:00 Resp 18 04/02/17 12:00 BP 96/67 04/02/17 12:00 Pulse Ox 95 04/02/17 12:00 Intake & Output 04/01/17 04/02/17 04/02/17 18:59 06:59 18:59 Intake Total 0 40 Balance 0 40 Weight (lbs) 55.338 kg 56.245 kg Intake: Oral 0 40 Other: # Voids 4 2 # Bowel Movements 0 0 Active Medications: Current Medications Acetaminophen (Tylenol) 650 mg PO Q4HR PRN PRN Reason: Mild Pain / Temp above 100 Stop: 05/26/17 23:49 Last Admin: 04/01/17 16:35 Dose: 650 mg Al Hydrox/Mg Hydrox/Simethicone (Maalox) 30 ml PO Q4HR PRN PRN Reason: GI DISTRESS Stop: 05/26/17 23:49 Carvedilol (Coreg) 12.5 mg PO BID [facility] Stop: 05/27/17 08:59 Last Admin: 04/02/17 09:16 Dose: Not Given Duloxetine HCl (Cymbalta) 120 mg PO DAILY DEVAUGHN PRN Reason: Protocol Stop: 05/27/17 08:59 Last Admin: 04/02/17 09:45 Dose: Not Given Enalaprilat (Vasotec) 1.25 mg IVP Q6HR PRN PRN Reason: BLOOD PRESSSURE Stop: 05/27/17 11:59 Last Admin: 03/28/17 15:59 Dose: 1.25 mg Enoxaparin Sodium (Lovenox) 40 mg SUBQ DAILY [facility] Stop: 05/27/17 08:59 Last Admin: 04/02/17 09:45 Dose: Not Given Ergocalciferol (Vitamin D) 50,000 iu PO We@0900 [facility] Stop: 05/29/17 08:59 Last Admin: 03/30/17 09:21 Dose: Not Given Gabapentin (Neurontin) 800 mg PO Q8H [facility] Stop: 05/27/17 13:59 Last Admin: 04/02/17 13:48 Dose: 800 mg Sodium Chloride (Nacl 0.9%) 1,000 mls @ 75 mls/hr IV .[id number] [facility] Stop: 05/26/17 23:46 Last Admin: 03/29/17 00:56 Dose: 75 mls/hr Insulin Aspart (Novolog Insulin Sliding Scale) 0 units SUBQ ACHS DEVAUGHN PRN Reason: Protocol Stop: 05/27/17 07:29 Last Admin: 04/02/17 11:31 Dose: Not Given Levofloxacin (Levaquin) 250 mg PO DAILY [facility] Stop: 05/30/17 08:59 Last Admin: 04/02/17 09:45 Dose: Not Given Magnesium Hydroxide (Milk Of Magnesia) 30 ml PO HS PRN PRN Reason: Constipation Stop: 05/26/17 23:49 Mirtazapine (Remeron) 15 mg PO HS [facility]AUGHN PRN Reason: Protocol Stop: 05/27/17 20:59 Last Admin: 04/01/17 21:26 Dose: 15 mg Multivitamins/Vitamin C (Theragran) 1 tab PO DAILY [facility] Stop: 05/27/17 08:59 Last Admin: 04/02/17 09:46 Dose: Not Given Mupirocin (Bactroban Oint) 1 appl NS BID [facility] Stop: 04/04/17 17:01 Last Admin: 04/02/17 09:46 Dose: Not Given Pantoprazole Sodium (Protonix) 40 mg PO QDAC [facility] Stop: 05/27/17 07:29 Last Admin: 04/02/17 10:41 Dose: Not Given Tramadol HCl (Ultram) 50 mg PO Q4H PRN PRN Reason: Pain (Moderate) Stop: 05/26/17 23:49 Last Admin: 04/01/17 21:26 Dose: 50 mg Trazodone HCl (Desyrel) 100 mg PO HS [facility]AUGHN PRN Reason: Protocol Stop: 05/27/17 20:59 Last Admin: 04/01/17 21:25 Dose: 100 mg Internal Medicine Assmt/Plan - Plan Plan: will monitor vitals/diet labs psych as per order sheet Nutritional Asmnt/Malnutr-PDOC - Dietary Evaluation Malnutrition Findings (Please click <Entered> for more info): Nutritional Asmnt/Malnutrition Start: 03/28/17 10: 46 Text: Status: Complete Freq: Document 03/28/17 10:46 MILAD (Rec: 03/28/17 10:59 MILAD ROBERT- [email or web address]) Nutritional Asmnt/Malnutrition Patient General Information Nutritional Screening High Risk Screening Diagnosis Syncope-dehydration Pertinent Medical Hx/Surgical Hx Diabetes, Idiopathic peripheral neuropathy, insomnia, GERD, chronic pain syndrome, Traumatic brain injury Subjective Information Patient was admitted from [facility] after refusing to eat, drink or take medications and having a syncopal episode. Patient continues to refuse some medical testing. Did not eat breakfast this morning. Current Diet Order/ Nutrition [facility], L[facility] Patient / S.O Not Indicated Pertinent Medications maalox, vitamin D, novolog, MOM, Theragran Pertinent Labs (03/28) Na 134, K 3.4, glucose 246 (POC glucose 276),TAG 321, Cholesterol 226, HgA1C 6.6, Calcium 10.4 Nutritional Hx/Data Height 1.63 m Height (Calculated Centimeters) 162.6 Current Weight (lbs) 51.256 kg Weight (Calculated Kilograms) 51.3 Weight (Calculated Grams) 01316.9 [place] Body Weight 130 % [place] Body Weight 86 Weight Status Approriate GI Symptoms GI Symptoms None Food Allergies No Cultural/Ethnic/Anabaptism Belief None indicated Usual diet at home Unknown Skin Integrity/Comment: Carlos 15, abrasion/ulceration on upper right abdomen Current %PO Negligible < 25% Estimated Nutritional Goals BEE in Kcals: Using Current wt Calories/Kcals/Kg (27-32 kcal/kg) - 86% IBW Kcals Calculated 8792-2867 kcal/day Protein: Using Current wt Protein g/k.1-1.3 gm/kg - ulceration and underweight Protein Calculated 56-66 gm/day Fluid: ml 9995-1780 ml/day (1ml/kcal) Nutritional Problem 2. Problem Problem Altered nutrition related lab values related to Etiology uncontrolled hyperglycemia, electrolyte imbalance Signs/Symptoms: Na 134, k 3.4, glucose 246 ( POC glucose 276), Calcium 10.4 1. Problem Problem Inadequate oral intake related to Etiology refusing meals/unknown reason aeb Signs/Symptoms: meeting <25% of nutrient needs , refusing meals prior to admission. Intervention/Recommendation Comments 1. Modify Diet to 60gm [facility], LOURDES as tolerated by patient ( for better blood glucose control). 2. MD to modify insulin regimen and repalce lytes as needed. 3. consider adding Boost Glucose control TID with meals to supplement oral intake. 4. Nursing staff to supervise meals and encourage oral intake. Expected Outcomes/Goals Expected Outcomes/Goals Oral intake to meet >75% of estimated nutrient needs, weight stable or trends toward ideal body weight, Ca, Na, K and blood glucose levels normalize. F/U in 3-5 days as Moderate risk (03/31-04/02)
[2017-04-03] MEDS: Pantoprazole 40 mg EC Tab PO SCH (06:30)
[2017-04-03] MEDS: INSULIN ASPART SLIDING SCALE 100 UNITS/ML UNIT SUBQ SCH ×4 (06:47→22:30)
[2017-04-03] MEDS: Enoxaparin 40 mg/0.4 mL 0.4mL Syr SUBQ SCH ×2 (09:48→09:57)
[2017-04-03] MEDS: Multivitamin Tab PO SCH ×2 (09:49→09:58)
--- NOTE | 2017-04-03 13:47 | General Progress Note ---
Subjective - Review of Systems Events since last encounter: patient with no distress Subjective: pt is refusing all meds hypokalemia Objective - Results Result Diagrams: 03/30/17 06:06 03/30/17 06:06 Recent Labs: Laboratory Last Values WBC 4.6 Th/cmm (4.8-10.8) L 03/30/17 06:06 RBC 3.70 Mil/cmm (3.80-5.10) L 03/30/17 06:06 Hgb 11.0 gm/dL (11.7-15.5) L 03/30/17 06:06 Hct 32.4 % (35.0-45.0) L D 03/30/17 06:06 MCV 87.6 fl (81-100) 03/30/17 06:06 MCH 29.9 pg (27.0-31.0) 03/30/17 06:06 MCHC Differential 34.1 pg (28.0-36.0) 03/30/17 06:06 RDW 15.0 % (11.5-20.0) 03/30/17 06:06 Plt Count 181 Th/cmm (150-400) D 03/30/17 06:06 MPV 6.9 fl 03/30/17 06:06 Neutrophils % 58.1 % (40.0-80.0) 03/30/17 06:06 Lymphocytes % 31.9 % (20.0-50.0) 03/30/17 06:06 Monocytes % 7.4 % (2.0-10.0) 03/30/17 06:06 Eosinophils % 1.5 % (0.0-5.0) 03/30/17 06:06 Basophils % 1.1 % (0.0-2.0) 03/30/17 06:06 PT 10.0 SECONDS (9.5-11.5) 03/27/17 22:42 INR 0.96 (0.5-1.4) 03/27/17 22:42 PTT (Actin FS) 29.6 SECONDS (26.0-38.0) 03/27/17 22:42 Sodium 134 mEq/L (136-145) L 03/30/17 06:06 Potassium 2.9 mEq/L (3.5-5.1) L* 03/30/17 06:06 Chloride 101 mEq/L (98-107) 03/30/17 06:06 Carbon Dioxide 22.0 mEq/L (21.0-31.0) 03/30/17 06:06 Anion Gap 13.9 (7.0-16.0) 03/30/17 06:06 BUN 11 mg/dL (7-25) 03/30/17 06:06 Creatinine 0.9 mg/dL (0.6-1.2) 03/30/17 06:06 Est GFR ( Amer) > 60.0 ml/min (>90) 03/30/17 06:06 Est GFR (Non-Af Amer) > 60.0 ml/min 03/30/17 06:06 BUN/Creatinine Ratio 12.2 03/30/17 06:06 Glucose 151 mg/dL (70-105) H 03/30/17 06:06 POC Glucose 166 MG/DL (70 - 105) H 04/03/17 11:21 Hemoglobin A1c % 6.6 % (4.0-6.0) H 03/27/17 22:42 Whole Bld Lactic Acid 1.44 mmol/L (0.60-1.99) 03/27/17 22:42 Calcium 9.1 mg/dL (8.6-10.3) 03/30/17 06:06 Magnesium 2.0 mg/dL (1.9-2.7) 03/27/17 22:42 Total Bilirubin 0.8 mg/dL (0.3-1.0) 03/27/17 22:42 AST 14 U/L (13-39) 03/27/17 22:42 ALT 7 U/L (7-52) 03/27/17 22:42 Alkaline Phosphatase 65 U/L (34-104) 03/27/17 22:42 Creatine Kinase 22 U/L (30-223) L 03/27/17 22:42 Troponin I 0.01 ng/mL (0.01-0.05) 03/28/17 18:26 Total Protein 7.3 gm/dL (6.0-8.3) 03/27/17 22:42 Albumin 4.2 gm/dL (3.7-5.3) 03/27/17 22:42 Globulin 3.1 gm/dL 03/27/17 22:42 Albumin/Globulin Ratio 1.4 (1.0-1.8) 03/27/17 22:42 Triglycerides 321 mg/dL (<150) H 03/28/17 05:50 Cholesterol 226 mg/dL (<200) H 03/28/17 05:50 LDL Cholesterol Direct 131 mg/dL (75-193) 03/28/17 05:50 HDL Cholesterol 41 mg/dL (23-92) 03/28/17 05:50 TSH 1.56 uIU/ml (0.34-5.60) 03/28/17 05:50 Urine Source CLEAN C 03/30/17 12:15 Urine Color YELLOW 03/30/17 12:15 Urine Clarity CLEAR (CLEAR) 03/30/17 12:15 Urine pH 6.0 (4.6 - 8.0) 03/30/17 12:15 Ur Specific [place] 1.010 (1.005-1.030) 03/30/17 12:15 Urine Protein TRACE mg/dL (NEGATIVE) 03/30/17 12:15 Urine Glucose (UA) NEGATIVE mg/dL (NEGATIVE) 03/30/17 12:15 Urine Ketones 40 mg/dL (NEGATIVE) H 03/30/17 12:15 Urine Blood NEGATIVE (NEGATIVE) 03/30/17 12:15 Urine Nitrate POSITIVE (NEGATIVE) H 03/30/17 12:15 Urine Bilirubin SMALL (NEGATIVE) H 03/30/17 12:15 Urine Urobilinogen 0.2 E.U./dL (0.2 - 1.0) 03/30/17 12:15 Ur Leukocyte Esterase SMALL (NEGATIVE) H 03/30/17 12:15 Urine RBC 0-2 /hpf (0-5) 03/30/17 12:15 Urine WBC 6-10 /hpf (0-5) H 03/30/17 12:15 Ur Epithelial Cells NONE SEEN /lpf (FEW) 03/30/17 12:15 Urine Bacteria FEW /hpf (NONE SEEN) 03/30/17 12:15 - Physical Exam Vitals and I&O: Vital Signs Temp 68.9 F 04/03/17 12:00 Pulse 64 04/03/17 12:00 Resp 19 04/03/17 12:00 BP 160/85 04/03/17 12:00 Pulse Ox 96 04/03/17 12:00 Intake & Output 04/02/17 04/03/17 04/03/17 18:59 06:59 18:59 Intake Total 450 Balance 450 Weight (lbs) 56.245 kg Intake: Oral 450 Other: # Voids 3 # Bowel Movements 0 Active Medications: Current Medications Acetaminophen (Tylenol) 650 mg PO Q4HR PRN PRN Reason: Mild Pain / Temp above 100 Stop: 05/26/17 23:49 Last Admin: 04/01/17 16:35 Dose: 650 mg Al Hydrox/Mg Hydrox/Simethicone (Maalox) 30 ml PO Q4HR PRN PRN Reason: GI DISTRESS Stop: 05/26/17 23:49 Carvedilol (Coreg) 12.5 mg PO BID [facility] Stop: 05/27/17 08:59 Last Admin: 04/03/17 09:55 Dose: Not Given Duloxetine HCl (Cymbalta) 120 mg PO DAILY [facility] PRN Reason: Protocol Stop: 05/27/17 08:59 Last Admin: 04/03/17 09:56 Dose: Not Given Enalaprilat (Vasotec) 1.25 mg IVP Q6HR PRN PRN Reason: BLOOD PRESSSURE Stop: 05/27/17 11:59 Last Admin: 03/28/17 15:59 Dose: 1.25 mg Enoxaparin Sodium (Lovenox) 40 mg SUBQ DAILY [facility] Stop: 05/27/17 08:59 Last Admin: 04/03/17 09:57 Dose: 40 mg Ergocalciferol (Vitamin D) 50,000 iu PO We@0900 [facility] Stop: 05/29/17 08:59 Last Admin: 03/30/17 09:21 Dose: Not Given Gabapentin (Neurontin) 800 mg PO Q8H [facility] Stop: 05/27/17 13:59 Last Admin: 04/02/17 22:26 Dose: Not Given Haloperidol (Haldol) 2 mg PO BID [facility] PRN Reason: Protocol Stop: 06/02/17 16:59 Sodium Chloride (Nacl 0.9%) 1,000 mls @ 75 mls/hr IV .[id number] [facility] Stop: 05/26/17 23:46 Last Admin: 03/29/17 00:56 Dose: 75 mls/hr Insulin Aspart (Novolog Insulin Sliding Scale) 0 units SUBQ ACHS [facility] PRN Reason: Protocol Stop: 05/27/17 07:29 Last Admin: 04/03/17 11:53 Dose: Not Given Levofloxacin (Levaquin) 250 mg PO DAILY [facility] Stop: 05/30/17 08:59 Last Admin: 04/03/17 09:57 Dose: Not Given Magnesium Hydroxide (Milk Of Magnesia) 30 ml PO HS PRN PRN Reason: Constipation Stop: 05/26/17 23:49 Mirtazapine (Remeron) 15 mg PO HS [facility] PRN Reason: Protocol Stop: 05/27/17 20:59 Last Admin: 04/02/17 22:27 Dose: Not Given Multivitamins/Vitamin C (Theragran) 1 tab PO DAILY [facility] Stop: 05/27/17 08:59 Last Admin: 04/03/17 09:58 Dose: Not Given Mupirocin (Bactroban Oint) 1 appl NS BID [facility] Stop: 04/04/17 17:01 Last Admin: 04/03/17 09:50 Dose: 1 appl Pantoprazole Sodium (Protonix) 40 mg PO QDAC [facility] Stop: 05/27/17 07:29 Last Admin: 04/02/17 10:41 Dose: Not Given Tramadol HCl (Ultram) 50 mg PO Q4H PRN PRN Reason: Pain (Moderate) Stop: 05/26/17 23:49 Last Admin: 04/03/17 11:10 Dose: 50 mg Trazodone HCl (Desyrel) 100 mg PO HS [facility] PRN Reason: Protocol Stop: 05/27/17 20:59 Last Admin: 04/02/17 22:27 Dose: Not Given General: No acute distress HEENT: Atraumatic, PERRLA Neck: Thyromegaly Cardiovascular: Regular rate, Normal S1, Normal S2 Lungs: Clear to auscultation Abdomen: Bowel sounds Assessment/Plan - Problem List Patient Problems: All Active Problems Dehydration (Acute) E86.0 Diabetes (Acute) E11.9 Hypokalemia (Acute) E87.6 Hyponatremia (Acute) E87.1 h/o schizophrenia (Acute) history of psychotic disorder (Acute) history of severe depression (Acute) - Plan Plan: will monitor vitals/diet labs psych as per order sheet Nutritional Asmnt/Malnutr-PDOC - Dietary Evaluation Malnutrition Findings (Please click <Entered> for more info): Nutritional Asmnt/Malnutrition Start: 03/28/17 10: 46 Text: Status: Complete Freq: Document 03/28/17 10:46 MILAD (Rec: 03/28/17 10:59 MILAD [email or web address]- [email or web address]) Nutritional Asmnt/Malnutrition Patient General Information Nutritional Screening High Risk Screening Diagnosis Syncope-dehydration Pertinent Medical Hx/Surgical Hx Diabetes, Idiopathic peripheral neuropathy, insomnia, GERD, chronic pain syndrome, Traumatic brain injury Subjective Information Patient was admitted from [facility] after refusing to eat, drink or take medications and having a syncopal episode. Patient continues to refuse some medical testing. Did not eat breakfast this morning. Current Diet Order/ [facility], LOURDES Patient / S.O Not Indicated Pertinent Medications maalox, vitamin D, novolog, MOM, Theragran Pertinent Labs (03/28) Na 134, K 3.4, glucose 246 (POC glucose 276),TAG 321, Cholesterol 226, HgA1C 6.6, Calcium 10.4 Nutritional Hx/Data Height 1.63 m Height (Calculated Centimeters) 162.6 Current Weight (lbs) 51.256 kg Weight (Calculated Kilograms) 51.3 Weight (Calculated Grams) 98818.9 [place] Body Weight 130 % [place] Body Weight 86 Weight Status Approriate GI Symptoms GI Symptoms None Food Allergies No Cultural/Ethnic/Hoahaoism Belief None indicated Usual diet at home Unknown Skin Integrity/Comment: Carlos 15, abrasion/ulceration on upper right abdomen Current %PO Negligible < 25% Estimated Nutritional Goals BEE in Kcals: Using Current wt Calories/Kcals/Kg (27-32 kcal/kg) - 86% IBW Kcals Calculated 8952-9508 kcal/day Protein: Using Current wt Protein g/k.1-1.3 gm/kg - ulceration and underweight Protein Calculated 56-66 gm/day Fluid: ml 7383-1906 ml/day (1ml/kcal) Nutritional Problem 2. Problem Problem Altered nutrition related lab values related to Etiology uncontrolled hyperglycemia, electrolyte imbalance Signs/Symptoms: Na 134, k 3.4, glucose 246 ( POC glucose 276), Calcium 10.4 1. Problem Problem Inadequate oral intake related to Etiology refusing meals/unknown reason aeb Signs/Symptoms: meeting <25% of nutrient needs , refusing meals prior to admission. Intervention/Recommendation Comments 1. Modify Diet to 60gm CCHO, LOURDES as tolerated by patient ( for better blood glucose control). 2. MD to modify insulin regimen and repalce lytes as needed. 3. consider adding Boost Glucose control TID with meals to supplement oral intake. 4. Nursing staff to supervise meals and encourage oral intake. Expected Outcomes/Goals Expected Outcomes/Goals Oral intake to meet >75% of estimated nutrient needs, weight stable or trends toward ideal body weight, Ca, Na, K and blood glucose levels normalize. F/U in 3-5 days as Moderate risk (03/31-04/02)
--- NOTE | 2017-04-03 15:50 | Infectious Disease Prog Note ---
Infectious Disease Subjective - Review of Systems Service Date: 04/03/17 Subjective: no fever. Infectious Disease Objective - Results Result Diagrams: 03/30/17 06:06 03/30/17 06:06 Recent Labs: Laboratory Last Values WBC 4.6 Th/cmm (4.8-10.8) L 03/30/17 06:06 RBC 3.70 Mil/cmm (3.80-5.10) L 03/30/17 06:06 Hgb 11.0 gm/dL (11.7-15.5) L 03/30/17 06:06 Hct 32.4 % (35.0-45.0) L D 03/30/17 06:06 MCV 87.6 fl (81-100) 03/30/17 06:06 MCH 29.9 pg (27.0-31.0) 03/30/17 06:06 MCHC Differential 34.1 pg (28.0-36.0) 03/30/17 06:06 RDW 15.0 % (11.5-20.0) 03/30/17 06:06 Plt Count 181 Th/cmm (150-400) D 03/30/17 06:06 MPV 6.9 fl 03/30/17 06:06 Neutrophils % 58.1 % (40.0-80.0) 03/30/17 06:06 Lymphocytes % 31.9 % (20.0-50.0) 03/30/17 06:06 Monocytes % 7.4 % (2.0-10.0) 03/30/17 06:06 Eosinophils % 1.5 % (0.0-5.0) 03/30/17 06:06 Basophils % 1.1 % (0.0-2.0) 03/30/17 06:06 PT 10.0 SECONDS (9.5-11.5) 03/27/17 22:42 INR 0.96 (0.5-1.4) 03/27/17 22:42 PTT (Actin FS) 29.6 SECONDS (26.0-38.0) 03/27/17 22:42 Sodium 134 mEq/L (136-145) L 03/30/17 06:06 Potassium 2.9 mEq/L (3.5-5.1) L* 03/30/17 06:06 Chloride 101 mEq/L (98-107) 03/30/17 06:06 Carbon Dioxide 22.0 mEq/L (21.0-31.0) 03/30/17 06:06 Anion Gap 13.9 (7.0-16.0) 03/30/17 06:06 BUN 11 mg/dL (7-25) 03/30/17 06:06 Creatinine 0.9 mg/dL (0.6-1.2) 03/30/17 06:06 Est GFR ( Amer) > 60.0 ml/min (>90) 03/30/17 06:06 Est GFR (Non-Af Amer) > 60.0 ml/min 03/30/17 06:06 BUN/Creatinine Ratio 12.2 03/30/17 06:06 Glucose 151 mg/dL (70-105) H 03/30/17 06:06 POC Glucose 166 MG/DL (70 - 105) H 04/03/17 11:21 Hemoglobin A1c % 6.6 % (4.0-6.0) H 03/27/17 22:42 Whole Bld Lactic Acid 1.44 mmol/L (0.60-1.99) 03/27/17 22:42 Calcium 9.1 mg/dL (8.6-10.3) 03/30/17 06:06 Magnesium 2.0 mg/dL (1.9-2.7) 03/27/17 22:42 Total Bilirubin 0.8 mg/dL (0.3-1.0) 03/27/17 22:42 AST 14 U/L (13-39) 03/27/17 22:42 ALT 7 U/L (7-52) 03/27/17 22:42 Alkaline Phosphatase 65 U/L (34-104) 03/27/17 22:42 Creatine Kinase 22 U/L (30-223) L 03/27/17 22:42 Troponin I 0.01 ng/mL (0.01-0.05) 03/28/17 18:26 Total Protein 7.3 gm/dL (6.0-8.3) 03/27/17 22:42 Albumin 4.2 gm/dL (3.7-5.3) 03/27/17 22:42 Globulin 3.1 gm/dL 03/27/17 22:42 Albumin/Globulin Ratio 1.4 (1.0-1.8) 03/27/17 22:42 Triglycerides 321 mg/dL (<150) H 03/28/17 05:50 Cholesterol 226 mg/dL (<200) H 03/28/17 05:50 LDL Cholesterol Direct 131 mg/dL (75-193) 03/28/17 05:50 HDL Cholesterol 41 mg/dL (23-92) 03/28/17 05:50 TSH 1.56 uIU/ml (0.34-5.60) 03/28/17 05:50 Urine Source CLEAN C 03/30/17 12:15 Urine Color YELLOW 03/30/17 12:15 Urine Clarity CLEAR (CLEAR) 03/30/17 12:15 Urine pH 6.0 (4.6 - 8.0) 03/30/17 12:15 Ur Specific [place] 1.010 (1.005-1.030) 03/30/17 12:15 Urine Protein TRACE mg/dL (NEGATIVE) 03/30/17 12:15 Urine Glucose (UA) NEGATIVE mg/dL (NEGATIVE) 03/30/17 12:15 Urine Ketones 40 mg/dL (NEGATIVE) H 03/30/17 12:15 Urine Blood NEGATIVE (NEGATIVE) 03/30/17 12:15 Urine Nitrate POSITIVE (NEGATIVE) H 03/30/17 12:15 Urine Bilirubin SMALL (NEGATIVE) H 03/30/17 12:15 Urine Urobilinogen 0.2 E.U./dL (0.2 - 1.0) 03/30/17 12:15 Ur Leukocyte Esterase SMALL (NEGATIVE) H 03/30/17 12:15 Urine RBC 0-2 /hpf (0-5) 03/30/17 12:15 Urine WBC 6-10 /hpf (0-5) H 03/30/17 12:15 Ur Epithelial Cells NONE SEEN /lpf (FEW) 03/30/17 12:15 Urine Bacteria FEW /hpf (NONE SEEN) 03/30/17 12:15 - Physical Exam Vitals and I&O: Vital Signs Temp 68.9 F 04/03/17 12:00 Pulse 64 04/03/17 12:00 Resp 19 04/03/17 12:00 BP 160/85 04/03/17 12:00 Pulse Ox 96 04/03/17 12:00 Intake & Output 04/02/17 04/03/17 04/03/17 18:59 06:59 18:59 Intake Total 450 Balance 450 Weight (lbs) 56.245 kg Intake: Oral 450 Other: # Voids 3 # Bowel Movements 0 Active Medications: Current Medications Acetaminophen (Tylenol) 650 mg PO Q4HR PRN PRN Reason: Mild Pain / Temp above 100 Stop: 05/26/17 23:49 Last Admin: 04/01/17 16:35 Dose: 650 mg Al Hydrox/Mg Hydrox/Simethicone (Maalox) 30 ml PO Q4HR PRN PRN Reason: GI DISTRESS Stop: 05/26/17 23:49 Carvedilol (Coreg) 12.5 mg PO BID [facility] Stop: 05/27/17 08:59 Last Admin: 04/03/17 09:55 Dose: Not Given Duloxetine HCl (Cymbalta) 120 mg PO DAILY [facility] PRN Reason: Protocol Stop: 05/27/17 08:59 Last Admin: 04/03/17 09:56 Dose: Not Given Enalaprilat (Vasotec) 1.25 mg IVP Q6HR PRN PRN Reason: BLOOD PRESSSURE Stop: 05/27/17 11:59 Last Admin: 03/28/17 15:59 Dose: 1.25 mg Enoxaparin Sodium (Lovenox) 40 mg SUBQ DAILY [facility] Stop: 05/27/17 08:59 Last Admin: 04/03/17 09:57 Dose: 40 mg Ergocalciferol (Vitamin D) 50,000 iu PO We@0900 [facility] Stop: 05/29/17 08:59 Last Admin: 03/30/17 09:21 Dose: Not Given Gabapentin (Neurontin) 800 mg PO Q8H [facility] Stop: 05/27/17 13:59 Last Admin: 04/03/17 14:16 Dose: 400 mg Haloperidol (Haldol) 2 mg PO BID [facility] PRN Reason: Protocol Stop: 06/02/17 16:59 Sodium Chloride (Nacl 0.9%) 1,000 mls @ 75 mls/hr IV .[id number] [facility] Stop: 05/26/17 23:46 Last Admin: 03/29/17 00:56 Dose: 75 mls/hr Insulin Aspart (Novolog Insulin Sliding Scale) 0 units SUBQ ACHS [facility] PRN Reason: Protocol Stop: 05/27/17 07:29 Last Admin: 04/03/17 11:53 Dose: Not Given Levofloxacin (Levaquin) 250 mg PO DAILY [facility] Stop: 05/30/17 08:59 Last Admin: 04/03/17 09:57 Dose: Not Given Magnesium Hydroxide (Milk Of Magnesia) 30 ml PO HS PRN PRN Reason: Constipation Stop: 05/26/17 23:49 Mirtazapine (Remeron) 15 mg PO HS [facility] PRN Reason: Protocol Stop: 05/27/17 20:59 Last Admin: 04/02/17 22:27 Dose: Not Given Multivitamins/Vitamin C (Theragran) 1 tab PO DAILY [facility] Stop: 05/27/17 08:59 Last Admin: 04/03/17 09:58 Dose: Not Given Mupirocin (Bactroban Oint) 1 appl NS BID [facility] Stop: 04/04/17 17:01 Last Admin: 04/03/17 09:50 Dose: 1 appl Pantoprazole Sodium (Protonix) 40 mg PO QDAC [facility] Stop: 05/27/17 07:29 Last Admin: 04/02/17 10:41 Dose: Not Given Tramadol HCl (Ultram) 50 mg PO Q4H PRN PRN Reason: Pain (Moderate) Stop: 05/26/17 23:49 Last Admin: 04/03/17 11:10 Dose: 50 mg Trazodone HCl (Desyrel) 100 mg PO HS [facility] PRN Reason: Protocol Stop: 05/27/17 20:59 Last Admin: 04/02/17 22:27 Dose: Not Given General: no acute distress, well developed, well nourished HEENT: atraumatic, normocephalic, PERRLA, EOMI, moist mucous membrane Neck: supple, no thyromegaly Cardiovascular: S1S2, regular Lungs: clear to auscultation bilaterally, clear to percussion Abdomen: soft, no tender, no distended Extremities: no cyanosis, no clubbing, no edema Neurological: awake, alert, oriented, CN 2-12 intact Skin: intact Infectious Disease Assmt/Plan - Problem List Patient Problems: All Active Problems Dehydration (Acute) E86.0 Diabetes (Acute) E11.9 Hypokalemia (Acute) E87.6 Hyponatremia (Acute) E87.1 h/o schizophrenia (Acute) history of psychotic disorder (Acute) history of severe depression (Acute) - Assessment Assessment: 1. UTI. 2. Chronic back pain. 3. Schizophrenia. 4. DM2. - Plan Plan: Continue levaquin for total 7 days. Nutritional Asmnt/Malnutr-PDOC - Dietary Evaluation Malnutrition Findings (Please click <Entered> for more info): Nutritional Asmnt/Malnutrition Start: 03/28/17 10: 46 Text: Status: Complete Freq: Document 03/28/17 10:46 MILAD (Rec: 03/28/17 10:59 [email or web address]- [email or web address]) Nutritional Asmnt/Malnutrition Patient General Information Nutritional Screening High Risk Screening Diagnosis Syncope-dehydration Pertinent Medical Hx/Surgical Hx Diabetes, Idiopathic peripheral neuropathy, insomnia, GERD, chronic pain syndrome, Traumatic brain injury Subjective Information Patient was admitted from [facility] after refusing to eat, drink or take medications and having a syncopal episode. Patient continues to refuse some medical testing. Did not eat breakfast this morning. Current Diet Order/ Nutrition Support [facility] 90gm, LOURDES Patient / S.O Not Indicated Pertinent Medications maalox, vitamin D, novolog, MOM, Theragran Pertinent Labs (03/28) Na 134, K 3.4, glucose 246 (POC glucose 276),TAG 321, Cholesterol 226, HgA1C 6.6, Calcium 10.4 Nutritional Hx/Data Height 1.63 m Height (Calculated Centimeters) 162.6 Current Weight (lbs) 51.256 kg Weight (Calculated Kilograms) 51.3 Weight (Calculated Grams) 43814.9 [place] Body Weight 130 % [place] Body Weight 86 Weight Status Approriate GI Symptoms GI Symptoms None Food Allergies No Cultural/Ethnic/Judaism Belief None indicated Usual diet at home Unknown Skin Integrity/Comment: [place] 15, abrasion/ulceration on upper right abdomen Current %PO Negligible < 25% Estimated Nutritional Goals BEE in Kcals: Using Current wt Calories/Kcals/Kg (27-32 kcal/kg) - 86% IBW Kcals Calculated 3620-2409 kcal/day Protein: Using Current wt Protein g/k.1-1.3 gm/kg - ulceration and underweight Protein Calculated 56-66 gm/day Fluid: ml 5825-8261 ml/day (1ml/kcal) Nutritional Problem 2. Problem Problem Altered nutrition related lab values related to Etiology uncontrolled hyperglycemia, electrolyte imbalance Signs/Symptoms: Na 134, k 3.4, glucose 246 ( POC glucose 276), Calcium 10.4 1. Problem Problem Inadequate oral intake related to Etiology refusing meals/unknown reason aeb Signs/Symptoms: meeting <25% of nutrient needs , refusing meals prior to admission. Intervention/Recommendation Comments 1. Modify Diet to 60gm CCHO, LOURDES as tolerated by patient ( for better blood glucose control). 2. MD to modify insulin regimen and repalce lytes as needed. 3. consider adding Boost Glucose control TID with meals to supplement oral intake. 4. Nursing staff to supervise meals and encourage oral intake. Expected Outcomes/Goals Expected Outcomes/Goals Oral intake to meet >75% of estimated nutrient needs, weight stable or trends toward ideal body weight, Ca, Na, K and blood glucose levels normalize. F/U in 3-5 days as Moderate risk (03/31-04/02)
--- NOTE | 2017-04-03 21:08 | Progress Notes ---
DATE: 04/02/2017 Case was discussed with staff of the patient, reviewed records. The patient has been not eating, refusing to take her medications. Continues to be unpredictable. Refusing IVs and lab work, so I am not sure if she needs to be on G-tube. She has been pulling out her IV. However, Dr. Sarabia initiated a hold, which will today. I will be extending the hold, and probably, she may need to be released. However, this is a weekend, Tuesday, and the release will not happen before a few days because usually it takes a few days before they get back with her, so I will try to initiate the release on Tuesday because that is the first day that we can fax it to the court, and at this point, I hope that maybe something else could be done. Thank you very much for allowing me to participate in the care of this most interesting lady. JOB# [id number]
--- NOTE | 2017-04-04 03:58 | Progress Notes ---
DATE: 04/03/2017 Case was discussed with staff of the patient. The patient did take her pain medication today, but she is out of medication. The patient also is not eating. I tried to talk to her, asked why she is not eating. She closed her eyes, would not answer me. She is unpredictable. She is refusing to eat, not taking care of herself, refusing to answer any questions. I will be initiating a Riese on her. She is on Cymbalta and I will be adding Haldol because it seems like she is acting in a paranoid manner. We will continue ____. Thank you very much for allowing me to participate in the care of this most interesting lady. JOB# [id number]
[2017-04-04] MEDS: INSULIN ASPART SLIDING SCALE 100 UNITS/ML UNIT SUBQ SCH ×4 (06:50→22:44)
[2017-04-04] MEDS: Pantoprazole 40 mg EC Tab PO SCH (06:50)
[2017-04-04] MEDS: Enoxaparin 40 mg/0.4 mL 0.4mL Syr SUBQ SCH ×2 (09:10→22:42)
[2017-04-04] MEDS: Multivitamin Tab PO SCH (09:11)
--- NOTE | 2017-04-04 14:24 | General Progress Note ---
Subjective - Review of Systems Events since last encounter: no distress no fever Subjective: pt is refusing all meds hypokalemia Objective - Results Result Diagrams: 03/30/17 06:06 03/30/17 06:06 Recent Labs: Laboratory Last Values WBC 4.6 Th/cmm (4.8-10.8) L 03/30/17 06:06 RBC 3.70 Mil/cmm (3.80-5.10) L 03/30/17 06:06 Hgb 11.0 gm/dL (11.7-15.5) L 03/30/17 06:06 Hct 32.4 % (35.0-45.0) L D 03/30/17 06:06 MCV 87.6 fl (81-100) 03/30/17 06:06 MCH 29.9 pg (27.0-31.0) 03/30/17 06:06 MCHC Differential 34.1 pg (28.0-36.0) 03/30/17 06:06 RDW 15.0 % (11.5-20.0) 03/30/17 06:06 Plt Count 181 Th/cmm (150-400) D 03/30/17 06:06 MPV 6.9 fl 03/30/17 06:06 Neutrophils % 58.1 % (40.0-80.0) 03/30/17 06:06 Lymphocytes % 31.9 % (20.0-50.0) 03/30/17 06:06 Monocytes % 7.4 % (2.0-10.0) 03/30/17 06:06 Eosinophils % 1.5 % (0.0-5.0) 03/30/17 06:06 Basophils % 1.1 % (0.0-2.0) 03/30/17 06:06 PT 10.0 SECONDS (9.5-11.5) 03/27/17 22:42 INR 0.96 (0.5-1.4) 03/27/17 22:42 PTT (Actin FS) 29.6 SECONDS (26.0-38.0) 03/27/17 22:42 Sodium 134 mEq/L (136-145) L 03/30/17 06:06 Potassium 2.9 mEq/L (3.5-5.1) L* 03/30/17 06:06 Chloride 101 mEq/L (98-107) 03/30/17 06:06 Carbon Dioxide 22.0 mEq/L (21.0-31.0) 03/30/17 06:06 Anion Gap 13.9 (7.0-16.0) 03/30/17 06:06 BUN 11 mg/dL (7-25) 03/30/17 06:06 Creatinine 0.9 mg/dL (0.6-1.2) 03/30/17 06:06 Est GFR ( Amer) > 60.0 ml/min (>90) 03/30/17 06:06 Est GFR (Non-Af Amer) > 60.0 ml/min 03/30/17 06:06 BUN/Creatinine Ratio 12.2 03/30/17 06:06 Glucose 151 mg/dL (70-105) H 03/30/17 06:06 POC Glucose 137 MG/DL (70 - 105) H 04/04/17 12:35 Hemoglobin A1c % 6.6 % (4.0-6.0) H 03/27/17 22:42 Whole Bld Lactic Acid 1.44 mmol/L (0.60-1.99) 03/27/17 22:42 Calcium 9.1 mg/dL (8.6-10.3) 03/30/17 06:06 Magnesium 2.0 mg/dL (1.9-2.7) 03/27/17 22:42 Total Bilirubin 0.8 mg/dL (0.3-1.0) 03/27/17 22:42 AST 14 U/L (13-39) 03/27/17 22:42 ALT 7 U/L (7-52) 03/27/17 22:42 Alkaline Phosphatase 65 U/L (34-104) 03/27/17 22:42 Creatine Kinase 22 U/L (30-223) L 03/27/17 22:42 Troponin I 0.01 ng/mL (0.01-0.05) 03/28/17 18:26 Total Protein 7.3 gm/dL (6.0-8.3) 03/27/17 22:42 Albumin 4.2 gm/dL (3.7-5.3) 03/27/17 22:42 Globulin 3.1 gm/dL 03/27/17 22:42 Albumin/Globulin Ratio 1.4 (1.0-1.8) 03/27/17 22:42 Triglycerides 321 mg/dL (<150) H 03/28/17 05:50 Cholesterol 226 mg/dL (<200) H 03/28/17 05:50 LDL Cholesterol Direct 131 mg/dL (75-193) 03/28/17 05:50 HDL Cholesterol 41 mg/dL (23-92) 03/28/17 05:50 TSH 1.56 uIU/ml (0.34-5.60) 03/28/17 05:50 Urine Source CLEAN C 03/30/17 12:15 Urine Color YELLOW 03/30/17 12:15 Urine Clarity CLEAR (CLEAR) 03/30/17 12:15 Urine pH 6.0 (4.6 - 8.0) 03/30/17 12:15 Ur Specific [place] 1.010 (1.005-1.030) 03/30/17 12:15 Urine Protein TRACE mg/dL (NEGATIVE) 03/30/17 12:15 Urine Glucose (UA) NEGATIVE mg/dL (NEGATIVE) 03/30/17 12:15 Urine Ketones 40 mg/dL (NEGATIVE) H 03/30/17 12:15 Urine Blood NEGATIVE (NEGATIVE) 03/30/17 12:15 Urine Nitrate POSITIVE (NEGATIVE) H 03/30/17 12:15 Urine Bilirubin SMALL (NEGATIVE) H 03/30/17 12:15 Urine Urobilinogen 0.2 E.U./dL (0.2 - 1.0) 03/30/17 12:15 Ur Leukocyte Esterase SMALL (NEGATIVE) H 03/30/17 12:15 Urine RBC 0-2 /hpf (0-5) 03/30/17 12:15 Urine WBC 6-10 /hpf (0-5) H 03/30/17 12:15 Ur Epithelial Cells NONE SEEN /lpf (FEW) 03/30/17 12:15 Urine Bacteria FEW /hpf (NONE SEEN) 03/30/17 12:15 - Physical Exam Vitals and I&O: Vital Signs Temp 65 F 04/04/17 04:00 Pulse 65 04/04/17 04:00 Resp 18 04/04/17 08:00 BP 132/78 04/04/17 04:00 Pulse Ox 97 04/04/17 04:00 Intake & Output 04/03/17 04/04/17 04/04/17 18:59 06:59 18:59 Intake Total 200 100 150 Balance 200 100 150 Weight (lbs) 56.245 kg 56.245 kg 56.245 kg Intake: Oral 200 100 150 Other: # Voids 3 4 2 # Bowel Movements 0 0 0 Active Medications: Current Medications Acetaminophen (Tylenol) 650 mg PO Q4HR PRN PRN Reason: Mild Pain / Temp above 100 Stop: 05/26/17 23:49 Last Admin: 04/01/17 16:35 Dose: 650 mg Al Hydrox/Mg Hydrox/Simethicone (Maalox) 30 ml PO Q4HR PRN PRN Reason: GI DISTRESS Stop: 05/26/17 23:49 Carvedilol (Coreg) 12.5 mg PO BID [facility] Stop: 05/27/17 08:59 Last Admin: 04/04/17 09:00 Dose: Not Given Duloxetine HCl (Cymbalta) 120 mg PO DAILY [facility] PRN Reason: Protocol Stop: 05/27/17 08:59 Last Admin: 04/04/17 09:10 Dose: Not Given Enalaprilat (Vasotec) 1.25 mg IVP Q6HR PRN PRN Reason: BLOOD PRESSSURE Stop: 05/27/17 11:59 Last Admin: 03/28/17 15:59 Dose: 1.25 mg Enoxaparin Sodium (Lovenox) 40 mg SUBQ DAILY [facility] Stop: 05/27/17 08:59 Last Admin: 04/04/17 09:10 Dose: Not Given Ergocalciferol (Vitamin D) 50,000 iu PO We@0900 [facility] Stop: 05/29/17 08:59 Last Admin: 03/30/17 09:21 Dose: Not Given Gabapentin (Neurontin) 800 mg PO Q8H [facility] Stop: 05/27/17 13:59 Last Admin: 04/04/17 06:50 Dose: Not Given Haloperidol (Haldol) 2 mg PO BID [facility] PRN Reason: Protocol Stop: 06/02/17 16:59 Last Admin: 04/04/17 09:13 Dose: 2 mg Sodium Chloride (Nacl 0.9%) 1,000 mls @ 75 mls/hr IV .[id number] [facility] Stop: 05/26/17 23:46 Last Admin: 03/29/17 00:56 Dose: 75 mls/hr Insulin Aspart (Novolog Insulin Sliding Scale) 0 units SUBQ ACHS [facility] PRN Reason: Protocol Stop: 05/27/17 07:29 Last Admin: 04/04/17 06:50 Dose: Not Given Levofloxacin (Levaquin) 250 mg PO DAILY [facility] Stop: 05/30/17 08:59 Last Admin: 04/04/17 09:10 Dose: Not Given Magnesium Hydroxide (Milk Of Magnesia) 30 ml PO HS PRN PRN Reason: Constipation Stop: 05/26/17 23:49 Mirtazapine (Remeron) 15 mg PO HS [facility] PRN Reason: Protocol Stop: 05/27/17 20:59 Last Admin: 04/03/17 22:00 Dose: Not Given Multivitamins/Vitamin C (Theragran) 1 tab PO DAILY [facility] Stop: 05/27/17 08:59 Last Admin: 04/04/17 09:11 Dose: Not Given Mupirocin (Bactroban Oint) 1 appl NS BID [facility] Stop: 04/04/17 17:01 Last Admin: 04/04/17 09:11 Dose: Not Given Pantoprazole Sodium (Protonix) 40 mg PO QDAC [facility] Stop: 05/27/17 07:29 Last Admin: 04/04/17 06:50 Dose: Not Given Trazodone HCl (Desyrel) 100 mg PO HS [facility] PRN Reason: Protocol Stop: 05/27/17 20:59 Last Admin: 04/03/17 22:00 Dose: Not Given General: No acute distress HEENT: Atraumatic, PERRLA Neck: Thyromegaly Cardiovascular: Regular rate, Normal S1, Normal S2 Lungs: Clear to auscultation Abdomen: Bowel sounds Assessment/Plan - Problem List Patient Problems: All Active Problems Dehydration (Acute) E86.0 Diabetes (Acute) E11.9 Hypokalemia (Acute) E87.6 Hyponatremia (Acute) E87.1 h/o schizophrenia (Acute) history of psychotic disorder (Acute) history of severe depression (Acute) - Plan Plan: will monitor vitals/diet labs psych as per order sheet Nutritional Asmnt/Malnutr-PDOC - Dietary Evaluation Malnutrition Findings (Please click <Entered> for more info): Nutritional Asmnt/Malnutrition Start: 03/28/17 10: 46 Text: Status: Complete Freq: Document 03/28/17 10:46 MILAD (Rec: 03/28/17 10:59 MILAD YESICA- [email or web address]) Nutritional Asmnt/Malnutrition Patient General Information Nutritional Screening High Risk Screening Diagnosis Syncope-dehydration Pertinent Medical Hx/Surgical Hx Diabetes, Idiopathic peripheral neuropathy, insomnia, GERD, chronic pain syndrome, Traumatic brain injury Subjective Information Patient was admitted from [facility] after refusing to eat, drink or take medications and having a syncopal episode. Patient continues to refuse some medical testing. Did not eat breakfast this morning. Current Diet Order/ Nutrition Support [facility] 90gm, LOURDES Patient / S.O Not Indicated Pertinent Medications maalox, vitamin D, novolog, MOM, Theragran Pertinent Labs (03/28) Na 134, K 3.4, glucose 246 (POC glucose 276),TAG 321, Cholesterol 226, HgA1C 6.6, Calcium 10.4 Nutritional Hx/Data Height 1.63 m Height (Calculated Centimeters) 162.6 Current Weight (lbs) 51.256 kg Weight (Calculated Kilograms) 51.3 Weight (Calculated Grams) 36688.9 [place] Body Weight 130 % [place] Body Weight 86 Weight Status Approriate GI Symptoms GI Symptoms None Food Allergies No Cultural/Ethnic/Rastafari Belief None indicated Usual diet at home Unknown Skin Integrity/Comment: [place] 15, abrasion/ulceration on upper right abdomen Current %PO Negligible < 25% Estimated Nutritional Goals BEE in Kcals: Using Current wt Calories/Kcals/Kg (27-32 kcal/kg) - 86% IBW Kcals Calculated 5179-1872 kcal/day Protein: Using Current wt Protein g/k.1-1.3 gm/kg - ulceration and underweight Protein Calculated 56-66 gm/day Fluid: ml 1745-5963 ml/day (1ml/kcal) Nutritional Problem 2. Problem Problem Altered nutrition related lab values related to Etiology uncontrolled hyperglycemia, electrolyte imbalance Signs/Symptoms: Na 134, k 3.4, glucose 246 ( POC glucose 276), Calcium 10.4 1. Problem Problem Inadequate oral intake related to Etiology refusing meals/unknown reason aeb Signs/Symptoms: meeting <25% of nutrient needs , refusing meals prior to admission. Intervention/Recommendation Comments 1. Modify Diet to 60[facility], [place] as tolerated by patient ( for better blood glucose control). 2. MD to modify insulin regimen and repalce lytes as needed. 3. consider adding Boost Glucose control TID with meals to supplement oral intake. 4. Nursing staff to supervise meals and encourage oral intake. Expected Outcomes/Goals Expected Outcomes/Goals Oral intake to meet >75% of estimated nutrient needs, weight stable or trends toward ideal body weight, Ca, Na, K and blood glucose levels normalize. F/U in 3-5 days as Moderate risk (03/31-04/02)
--- NOTE | 2017-04-04 14:48 | Infectious Disease Prog Note ---
Infectious Disease Subjective - Review of Systems Service Date: 04/04/17 Events since last encounter: None. Subjective: no fever. Infectious Disease Objective - Results Result Diagrams: 03/30/17 06:06 03/30/17 06:06 Recent Labs: Laboratory Last Values WBC 4.6 Th/cmm (4.8-10.8) L 03/30/17 06:06 RBC 3.70 Mil/cmm (3.80-5.10) L 03/30/17 06:06 Hgb 11.0 gm/dL (11.7-15.5) L 03/30/17 06:06 Hct 32.4 % (35.0-45.0) L D 03/30/17 06:06 MCV 87.6 fl (81-100) 03/30/17 06:06 MCH 29.9 pg (27.0-31.0) 03/30/17 06:06 MCHC Differential 34.1 pg (28.0-36.0) 03/30/17 06:06 RDW 15.0 % (11.5-20.0) 03/30/17 06:06 Plt Count 181 Th/cmm (150-400) D 03/30/17 06:06 MPV 6.9 fl 03/30/17 06:06 Neutrophils % 58.1 % (40.0-80.0) 03/30/17 06:06 Lymphocytes % 31.9 % (20.0-50.0) 03/30/17 06:06 Monocytes % 7.4 % (2.0-10.0) 03/30/17 06:06 Eosinophils % 1.5 % (0.0-5.0) 03/30/17 06:06 Basophils % 1.1 % (0.0-2.0) 03/30/17 06:06 PT 10.0 SECONDS (9.5-11.5) 03/27/17 22:42 INR 0.96 (0.5-1.4) 03/27/17 22:42 PTT (Actin FS) 29.6 SECONDS (26.0-38.0) 03/27/17 22:42 Sodium 134 mEq/L (136-145) L 03/30/17 06:06 Potassium 2.9 mEq/L (3.5-5.1) L* 03/30/17 06:06 Chloride 101 mEq/L (98-107) 03/30/17 06:06 Carbon Dioxide 22.0 mEq/L (21.0-31.0) 03/30/17 06:06 Anion Gap 13.9 (7.0-16.0) 03/30/17 06:06 BUN 11 mg/dL (7-25) 03/30/17 06:06 Creatinine 0.9 mg/dL (0.6-1.2) 03/30/17 06:06 Est GFR ( Amer) > 60.0 ml/min (>90) 03/30/17 06:06 Est GFR (Non-Af Amer) > 60.0 ml/min 03/30/17 06:06 BUN/Creatinine Ratio 12.2 03/30/17 06:06 Glucose 151 mg/dL (70-105) H 03/30/17 06:06 POC Glucose 137 MG/DL (70 - 105) H 04/04/17 12:35 Hemoglobin A1c % 6.6 % (4.0-6.0) H 03/27/17 22:42 Whole Bld Lactic Acid 1.44 mmol/L (0.60-1.99) 03/27/17 22:42 Calcium 9.1 mg/dL (8.6-10.3) 03/30/17 06:06 Magnesium 2.0 mg/dL (1.9-2.7) 03/27/17 22:42 Total Bilirubin 0.8 mg/dL (0.3-1.0) 03/27/17 22:42 AST 14 U/L (13-39) 03/27/17 22:42 ALT 7 U/L (7-52) 03/27/17 22:42 Alkaline Phosphatase 65 U/L (34-104) 03/27/17 22:42 Creatine Kinase 22 U/L (30-223) L 03/27/17 22:42 Troponin I 0.01 ng/mL (0.01-0.05) 03/28/17 18:26 Total Protein 7.3 gm/dL (6.0-8.3) 03/27/17 22:42 Albumin 4.2 gm/dL (3.7-5.3) 03/27/17 22:42 Globulin 3.1 gm/dL 03/27/17 22:42 Albumin/Globulin Ratio 1.4 (1.0-1.8) 03/27/17 22:42 Triglycerides 321 mg/dL (<150) H 03/28/17 05:50 Cholesterol 226 mg/dL (<200) H 03/28/17 05:50 LDL Cholesterol Direct 131 mg/dL (75-193) 03/28/17 05:50 HDL Cholesterol 41 mg/dL (23-92) 03/28/17 05:50 TSH 1.56 uIU/ml (0.34-5.60) 03/28/17 05:50 Urine Source CLEAN C 03/30/17 12:15 Urine Color YELLOW 03/30/17 12:15 Urine Clarity CLEAR (CLEAR) 03/30/17 12:15 Urine pH 6.0 (4.6 - 8.0) 03/30/17 12:15 Ur Specific [place] 1.010 (1.005-1.030) 03/30/17 12:15 Urine Protein TRACE mg/dL (NEGATIVE) 03/30/17 12:15 Urine Glucose (UA) NEGATIVE mg/dL (NEGATIVE) 03/30/17 12:15 Urine Ketones 40 mg/dL (NEGATIVE) H 03/30/17 12:15 Urine Blood NEGATIVE (NEGATIVE) 03/30/17 12:15 Urine Nitrate POSITIVE (NEGATIVE) H 03/30/17 12:15 Urine Bilirubin SMALL (NEGATIVE) H 03/30/17 12:15 Urine Urobilinogen 0.2 E.U./dL (0.2 - 1.0) 03/30/17 12:15 Ur Leukocyte Esterase SMALL (NEGATIVE) H 03/30/17 12:15 Urine RBC 0-2 /hpf (0-5) 03/30/17 12:15 Urine WBC 6-10 /hpf (0-5) H 03/30/17 12:15 Ur Epithelial Cells NONE SEEN /lpf (FEW) 03/30/17 12:15 Urine Bacteria FEW /hpf (NONE SEEN) 03/30/17 12:15 - Physical Exam Vitals and I&O: Vital Signs Temp 65 F 04/04/17 04:00 Pulse 65 04/04/17 04:00 Resp 18 04/04/17 08:00 BP 132/78 04/04/17 04:00 Pulse Ox 97 04/04/17 04:00 Intake & Output 04/03/17 04/04/17 04/04/17 18:59 06:59 18:59 Intake Total 200 100 150 Balance 200 100 150 Weight (lbs) 56.245 kg 56.245 kg 56.245 kg Intake: Oral 200 100 150 Other: # Voids 3 4 2 # Bowel Movements 0 0 0 Active Medications: Current Medications Acetaminophen (Tylenol) 650 mg PO Q4HR PRN PRN Reason: Mild Pain / Temp above 100 Stop: 05/26/17 23:49 Last Admin: 04/01/17 16:35 Dose: 650 mg Al Hydrox/Mg Hydrox/Simethicone (Maalox) 30 ml PO Q4HR PRN PRN Reason: GI DISTRESS Stop: 05/26/17 23:49 Carvedilol (Coreg) 12.5 mg PO BID [facility] Stop: 05/27/17 08:59 Last Admin: 04/04/17 09:00 Dose: Not Given Duloxetine HCl (Cymbalta) 120 mg PO DAILY [facility] PRN Reason: Protocol Stop: 05/27/17 08:59 Last Admin: 04/04/17 09:10 Dose: Not Given Enalaprilat (Vasotec) 1.25 mg IVP Q6HR PRN PRN Reason: BLOOD PRESSSURE Stop: 05/27/17 11:59 Last Admin: 03/28/17 15:59 Dose: 1.25 mg Enoxaparin Sodium (Lovenox) 40 mg SUBQ DAILY [facility] Stop: 05/27/17 08:59 Last Admin: 04/04/17 09:10 Dose: Not Given Ergocalciferol (Vitamin D) 50,000 iu PO We@0900 [facility] Stop: 05/29/17 08:59 Last Admin: 03/30/17 09:21 Dose: Not Given Gabapentin (Neurontin) 800 mg PO Q8H [facility] Stop: 05/27/17 13:59 Last Admin: 04/04/17 06:50 Dose: Not Given Haloperidol (Haldol) 2 mg PO BID [facility] PRN Reason: Protocol Stop: 06/02/17 16:59 Last Admin: 04/04/17 09:13 Dose: 2 mg Sodium Chloride (Nacl 0.9%) 1,000 mls @ 75 mls/hr IV .[id number] [facility] Stop: 05/26/17 23:46 Last Admin: 03/29/17 00:56 Dose: 75 mls/hr Insulin Aspart (Novolog Insulin Sliding Scale) 0 units SUBQ ACHS [facility] PRN Reason: Protocol Stop: 05/27/17 07:29 Last Admin: 04/04/17 06:50 Dose: Not Given Levofloxacin (Levaquin) 250 mg PO DAILY [facility] Stop: 05/30/17 08:59 Last Admin: 04/04/17 09:10 Dose: Not Given Magnesium Hydroxide (Milk Of Magnesia) 30 ml PO HS PRN PRN Reason: Constipation Stop: 05/26/17 23:49 Mirtazapine (Remeron) 15 mg PO HS [facility] PRN Reason: Protocol Stop: 05/27/17 20:59 Last Admin: 04/03/17 22:00 Dose: Not Given Multivitamins/Vitamin C (Theragran) 1 tab PO DAILY [facility] Stop: 05/27/17 08:59 Last Admin: 04/04/17 09:11 Dose: Not Given Mupirocin (Bactroban Oint) 1 appl NS BID [facility] Stop: 04/04/17 17:01 Last Admin: 04/04/17 09:11 Dose: Not Given Pantoprazole Sodium (Protonix) 40 mg PO QDAC [facility] Stop: 05/27/17 07:29 Last Admin: 04/04/17 06:50 Dose: Not Given Trazodone HCl (Desyrel) 100 mg PO HS [facility] PRN Reason: Protocol Stop: 05/27/17 20:59 Last Admin: 04/03/17 22:00 Dose: Not Given General: no acute distress, well developed, well nourished HEENT: atraumatic, normocephalic, PERRLA, EOMI, moist mucous membrane Neck: supple, no thyromegaly, no rigid Cardiovascular: S1S2, regular Lungs: clear to auscultation bilaterally, clear to percussion Abdomen: soft, bowel sounds, no tender, no distended, no hepatomegaly Extremities: no cyanosis, no clubbing, no edema Neurological: awake, alert, oriented Skin: intact Infectious Disease Assmt/Plan - Problem List Patient Problems: All Active Problems Dehydration (Acute) E86.0 Diabetes (Acute) E11.9 Hypokalemia (Acute) E87.6 Hyponatremia (Acute) E87.1 h/o schizophrenia (Acute) history of psychotic disorder (Acute) history of severe depression (Acute) - Assessment Assessment: 1. UTI. 2. Chronic back pain. 3. Schizophrenia. 4. DM2. - Plan Plan: Continue levaquin for total 7 days. D5/7. Nutritional Asmnt/Malnutr-PDOC - Dietary Evaluation Malnutrition Findings (Please click <Entered> for more info): Nutritional Asmnt/Malnutrition Start: 03/28/17 10: 46 Text: Status: Complete Freq: Document 03/28/17 10:46 MILAD (Rec: 03/28/17 10:59 [email or web address] YESICA- [email or web address]) Nutritional Asmnt/Malnutrition Patient General Information Nutritional Screening High Risk Screening Diagnosis Syncope-dehydration Pertinent Medical Hx/Surgical Hx Diabetes, Idiopathic peripheral neuropathy, insomnia, GERD, chronic pain syndrome, Traumatic brain injury Subjective Information Patient was admitted from [facility] after refusing to eat, drink or take medications and having a syncopal episode. Patient continues to refuse some medical testing. Did not eat breakfast this morning. Current Diet Order/ Nutrition Support [facility] 90gm, [place] Patient / S.O Not Indicated Pertinent Medications maalox, vitamin D, novolog, MOM, Theragran Pertinent Labs (03/28) Na 134, K 3.4, glucose 246 (POC glucose 276),TAG 321, Cholesterol 226, HgA1C 6.6, Calcium 10.4 Nutritional Hx/Data Height 1.63 m Height (Calculated Centimeters) 162.6 Current Weight (lbs) 51.256 kg Weight (Calculated Kilograms) 51.3 Weight (Calculated Grams) 03649.9 [place] Body Weight 130 % [place] Body Weight 86 Weight Status Approriate GI Symptoms GI Symptoms None Food Allergies No Cultural/Ethnic/Anglican Belief None indicated Usual diet at home Unknown Skin Integrity/Comment: [place] 15, abrasion/ulceration on upper right abdomen Current %PO Negligible < 25% Estimated Nutritional Goals BEE in Kcals: Using Current wt Calories/Kcals/Kg (27-32 kcal/kg) - 86% IBW Kcals Calculated 8272-3112 kcal/day Protein: Using Current wt Protein g/k.1-1.3 gm/kg - ulceration and underweight Protein Calculated 56-66 gm/day Fluid: ml 4846-0767 ml/day (1ml/kcal) Nutritional Problem 2. Problem Problem Altered nutrition related lab values related to Etiology uncontrolled hyperglycemia, electrolyte imbalance Signs/Symptoms: Na 134, k 3.4, glucose 246 ( POC glucose 276), Calcium 10.4 1. Problem Problem Inadequate oral intake related to Etiology refusing meals/unknown reason aeb Signs/Symptoms: meeting <25% of nutrient needs , refusing meals prior to admission. Intervention/Recommendation Comments 1. Modify Diet to 60gm [facility], [place]OUR[place] as tolerated by patient ( for better blood glucose control). 2. MD to modify insulin regimen and repalce lytes as needed. 3. consider adding Boost Glucose control TID with meals to supplement oral intake. 4. Nursing staff to supervise meals and encourage oral intake. Expected Outcomes/Goals Expected Outcomes/Goals Oral intake to meet >75% of estimated nutrient needs, weight stable or trends toward ideal body weight, Ca, Na, K and blood glucose levels normalize. F/U in 3-5 days as Moderate risk (03/31-04/02)
--- NOTE | 2017-04-05 03:07 | Progress Notes ---
DATE: 04/04/2017 Case was discussed with staff of the patient, reviewed records. The patient took a pain medication this morning and apparently she told the staff to take her medication and then she only takes her pain medications. I did talk to the patient with the nurses taking care primary and I explained to her that she says she will take her medication, explained to the patient that she will need to take all of her medication because of weight balance each other with her psychiatric condition. She nodded her head by yes assuming she would take her medication; however anyway and I did try for brief because of not eating, not taking her medication, which however, agreed to take it today and we will continue to work with the patient in group therapy. Thank you very much for allowing me to participate in the care of this most interesting lady. JOB# [id number]
[2017-04-05] MEDS: INSULIN ASPART SLIDING SCALE 100 UNITS/ML UNIT SUBQ SCH ×3 (07:48→16:42)
--- NOTE | 2017-04-05 11:50 | Infectious Disease Prog Note ---
Infectious Disease Subjective - Review of Systems Service Date: 04/05/17 Subjective: no fever. Infectious Disease Objective - Results Result Diagrams: 03/30/17 06:06 03/30/17 06:06 Recent Labs: Laboratory Last Values WBC 4.6 Th/cmm (4.8-10.8) L 03/30/17 06:06 RBC 3.70 Mil/cmm (3.80-5.10) L 03/30/17 06:06 Hgb 11.0 gm/dL (11.7-15.5) L 03/30/17 06:06 Hct 32.4 % (35.0-45.0) L D 03/30/17 06:06 MCV 87.6 fl (81-100) 03/30/17 06:06 MCH 29.9 pg (27.0-31.0) 03/30/17 06:06 MCHC Differential 34.1 pg (28.0-36.0) 03/30/17 06:06 RDW 15.0 % (11.5-20.0) 03/30/17 06:06 Plt Count 181 Th/cmm (150-400) D 03/30/17 06:06 MPV 6.9 fl 03/30/17 06:06 Neutrophils % 58.1 % (40.0-80.0) 03/30/17 06:06 Lymphocytes % 31.9 % (20.0-50.0) 03/30/17 06:06 Monocytes % 7.4 % (2.0-10.0) 03/30/17 06:06 Eosinophils % 1.5 % (0.0-5.0) 03/30/17 06:06 Basophils % 1.1 % (0.0-2.0) 03/30/17 06:06 PT 10.0 SECONDS (9.5-11.5) 03/27/17 22:42 INR 0.96 (0.5-1.4) 03/27/17 22:42 PTT (Actin FS) 29.6 SECONDS (26.0-38.0) 03/27/17 22:42 Sodium 134 mEq/L (136-145) L 03/30/17 06:06 Potassium 2.9 mEq/L (3.5-5.1) L* 03/30/17 06:06 Chloride 101 mEq/L (98-107) 03/30/17 06:06 Carbon Dioxide 22.0 mEq/L (21.0-31.0) 03/30/17 06:06 Anion Gap 13.9 (7.0-16.0) 03/30/17 06:06 BUN 11 mg/dL (7-25) 03/30/17 06:06 Creatinine 0.9 mg/dL (0.6-1.2) 03/30/17 06:06 Est GFR ( Amer) > 60.0 ml/min (>90) 03/30/17 06:06 Est GFR (Non-Af Amer) > 60.0 ml/min 03/30/17 06:06 BUN/Creatinine Ratio 12.2 03/30/17 06:06 Glucose 151 mg/dL (70-105) H 03/30/17 06:06 POC Glucose 127 MG/DL (70 - 105) H 04/05/17 07:00 Hemoglobin A1c % 6.6 % (4.0-6.0) H 03/27/17 22:42 Whole Bld Lactic Acid 1.44 mmol/L (0.60-1.99) 03/27/17 22:42 Calcium 9.1 mg/dL (8.6-10.3) 03/30/17 06:06 Magnesium 2.0 mg/dL (1.9-2.7) 03/27/17 22:42 Total Bilirubin 0.8 mg/dL (0.3-1.0) 03/27/17 22:42 AST 14 U/L (13-39) 03/27/17 22:42 ALT 7 U/L (7-52) 03/27/17 22:42 Alkaline Phosphatase 65 U/L (34-104) 03/27/17 22:42 Creatine Kinase 22 U/L (30-223) L 03/27/17 22:42 Troponin I 0.01 ng/mL (0.01-0.05) 03/28/17 18:26 Total Protein 7.3 gm/dL (6.0-8.3) 03/27/17 22:42 Albumin 4.2 gm/dL (3.7-5.3) 03/27/17 22:42 Globulin 3.1 gm/dL 03/27/17 22:42 Albumin/Globulin Ratio 1.4 (1.0-1.8) 03/27/17 22:42 Triglycerides 321 mg/dL (<150) H 03/28/17 05:50 Cholesterol 226 mg/dL (<200) H 03/28/17 05:50 LDL Cholesterol Direct 131 mg/dL (75-193) 03/28/17 05:50 HDL Cholesterol 41 mg/dL (23-92) 03/28/17 05:50 TSH 1.56 uIU/ml (0.34-5.60) 03/28/17 05:50 Urine Source CLEAN C 03/30/17 12:15 Urine Color YELLOW 03/30/17 12:15 Urine Clarity CLEAR (CLEAR) 03/30/17 12:15 Urine pH 6.0 (4.6 - 8.0) 03/30/17 12:15 Ur Specific [place] 1.010 (1.005-1.030) 03/30/17 12:15 Urine Protein TRACE mg/dL (NEGATIVE) 03/30/17 12:15 Urine Glucose (UA) NEGATIVE mg/dL (NEGATIVE) 03/30/17 12:15 Urine Ketones 40 mg/dL (NEGATIVE) H 03/30/17 12:15 Urine Blood NEGATIVE (NEGATIVE) 03/30/17 12:15 Urine Nitrate POSITIVE (NEGATIVE) H 03/30/17 12:15 Urine Bilirubin SMALL (NEGATIVE) H 03/30/17 12:15 Urine Urobilinogen 0.2 E.U./dL (0.2 - 1.0) 03/30/17 12:15 Ur Leukocyte Esterase SMALL (NEGATIVE) H 03/30/17 12:15 Urine RBC 0-2 /hpf (0-5) 03/30/17 12:15 Urine WBC 6-10 /hpf (0-5) H 03/30/17 12:15 Ur Epithelial Cells NONE SEEN /lpf (FEW) 03/30/17 12:15 Urine Bacteria FEW /hpf (NONE SEEN) 03/30/17 12:15 - Physical Exam Vitals and I&O: Vital Signs Temp 97.8 F 04/05/17 08:00 Pulse 67 04/05/17 08:00 Resp 18 04/05/17 08:00 BP 122/73 04/05/17 08:00 Pulse Ox 98 04/05/17 08:00 Intake & Output 04/04/17 04/05/17 04/05/17 18:59 06:59 18:59 Intake Total 150 50 Balance 150 50 Weight (lbs) 56.245 kg 56.245 kg Intake: Oral 150 50 Other: # Voids 2 2 # Bowel Movements 0 0 Active Medications: Current Medications Acetaminophen (Tylenol) 650 mg PO Q4HR PRN PRN Reason: Mild Pain / Temp above 100 Stop: 05/26/17 23:49 Last Admin: 04/04/17 22:42 Dose: 650 mg Al Hydrox/Mg Hydrox/Simethicone (Maalox) 30 ml PO Q4HR PRN PRN Reason: GI DISTRESS Stop: 05/26/17 23:49 Carvedilol (Coreg) 12.5 mg PO BID [facility] Stop: 05/27/17 08:59 Last Admin: 04/04/17 16:42 Dose: Not Given Duloxetine HCl (Cymbalta) 120 mg PO DAILY [facility] PRN Reason: Protocol Stop: 05/27/17 08:59 Last Admin: 04/04/17 09:10 Dose: Not Given Enalaprilat (Vasotec) 1.25 mg IVP Q6HR PRN PRN Reason: BLOOD PRESSSURE Stop: 05/27/17 11:59 Last Admin: 03/28/17 15:59 Dose: 1.25 mg Enoxaparin Sodium (Lovenox) 40 mg SUBQ DAILY [facility] Stop: 05/27/17 08:59 Last Admin: 04/04/17 22:42 Dose: 40 mg Ergocalciferol (Vitamin D) 50,000 iu PO We@0900 [facility] Stop: 05/29/17 08:59 Last Admin: 03/30/17 09:21 Dose: Not Given Gabapentin (Neurontin) 800 mg PO Q8H [facility] Stop: 05/27/17 13:59 Last Admin: 04/04/17 23:59 Dose: 800 mg Haloperidol (Haldol) 2 mg PO BID [facility] PRN Reason: Protocol Stop: 06/02/17 16:59 Last Admin: 04/04/17 16:52 Dose: 2 mg Sodium Chloride (Nacl 0.9%) 1,000 mls @ 75 mls/hr IV .[id number] [facility] Stop: 05/26/17 23:46 Last Admin: 03/29/17 00:56 Dose: 75 mls/hr Insulin Aspart (Novolog Insulin Sliding Scale) 0 units SUBQ ACHS [facility] PRN Reason: Protocol Stop: 05/27/17 07:29 Last Admin: 04/05/17 07:48 Dose: Not Given Levofloxacin (Levaquin) 250 mg PO DAILY [facility] Stop: 05/30/17 08:59 Last Admin: 04/04/17 09:10 Dose: Not Given Magnesium Hydroxide (Milk Of Magnesia) 30 ml PO HS PRN PRN Reason: Constipation Stop: 05/26/17 23:49 Mirtazapine (Remeron) 15 mg PO HS [facility] PRN Reason: Protocol Stop: 05/27/17 20:59 Last Admin: 04/04/17 22:49 Dose: 15 mg Multivitamins/Vitamin C (Theragran) 1 tab PO DAILY [facility] Stop: 05/27/17 08:59 Last Admin: 04/04/17 09:11 Dose: Not Given Pantoprazole Sodium (Protonix) 40 mg PO QDAC [facility] Stop: 05/27/17 07:29 Last Admin: 04/04/17 06:50 Dose: Not Given Trazodone HCl (Desyrel) 100 mg PO HS [facility] PRN Reason: Protocol Stop: 05/27/17 20:59 Last Admin: 04/04/17 22:49 Dose: 100 mg General: no acute distress, well developed, well nourished HEENT: atraumatic, normocephalic, PERRLA, EOMI, moist mucous membrane, dry Neck: supple, no thyromegaly, no rigid Cardiovascular: S1S2, regular Lungs: clear to auscultation bilaterally, clear to percussion Abdomen: soft, bowel sounds, no tender, no distended Extremities: no cyanosis, no clubbing, no edema Neurological: awake, alert, oriented Skin: intact Infectious Disease Assmt/Plan - Problem List Patient Problems: All Active Problems Dehydration (Acute) E86.0 Diabetes (Acute) E11.9 Hypokalemia (Acute) E87.6 Hyponatremia (Acute) E87.1 h/o schizophrenia (Acute) history of psychotic disorder (Acute) history of severe depression (Acute) - Assessment Assessment: 1. UTI. 2. Chronic back pain. 3. Schizophrenia. 4. DM2. - Plan Plan: Continue levaquin for total 7 days. D6/7. Nutritional Asmnt/Malnutr-PDOC - Dietary Evaluation Malnutrition Findings (Please click <Entered> for more info): Nutritional Asmnt/Malnutrition Start: 03/28/17 10: 46 Text: Status: Complete Freq: Document 03/28/17 10:46 MILAD (Rec: 03/28/17 10:59 MILAD YESICA- FNS1) Nutritional Asmnt/Malnutrition Patient General Information Nutritional Screening High Risk Screening Diagnosis Syncope-dehydration Pertinent Medical Hx/Surgical Hx Diabetes, Idiopathic peripheral neuropathy, insomnia, GERD, chronic pain syndrome, Traumatic brain injury Subjective Information Patient was admitted from [facility] after refusing to eat, drink or take medications and having a syncopal episode. Patient continues to refuse some medical testing. Did not eat breakfast this morning. Current Diet Order/ Nutrition Support [place] 90gm, LOURDES Patient / S.O Not Indicated Pertinent Medications maalox, vitamin D, novolog, MOM, Theragran Pertinent Labs (03/28) Na 134, K 3.4, glucose 246 (POC glucose 276),TAG 321, Cholesterol 226, HgA1C 6.6, Calcium 10.4 Nutritional Hx/Data Height 1.63 m Height (Calculated Centimeters) 162.6 Current Weight (lbs) 51.256 kg Weight (Calculated Kilograms) 51.3 Weight (Calculated Grams) 58199.9 [place] Body Weight 130 % [place] Body Weight 86 Weight Status Approriate GI Symptoms GI Symptoms None Food Allergies No Cultural/Ethnic/Mormonism Belief None indicated Usual diet at home Unknown Skin Integrity/Comment: Carlos 15, abrasion/ulceration on upper right abdomen Current %PO Negligible < 25% Estimated Nutritional Goals BEE in Kcals: Using Current wt Calories/Kcals/Kg (27-32 kcal/kg) - 86% IBW Kcals Calculated 0176-8437 kcal/day Protein: Using Current wt Protein g/k.1-1.3 gm/kg - ulceration and underweight Protein Calculated 56-66 gm/day Fluid: ml 6166-7460 ml/day (1ml/kcal) Nutritional Problem 2. Problem Problem Altered nutrition related lab values related to Etiology uncontrolled hyperglycemia, electrolyte imbalance Signs/Symptoms: Na 134, k 3.4, glucose 246 ( POC glucose 276), Calcium 10.4 1. Problem Problem Inadequate oral intake related to Etiology refusing meals/unknown reason aeb Signs/Symptoms: meeting <25% of nutrient needs , refusing meals prior to admission. Intervention/Recommendation Comments 1. Modify Diet to 60gm CCHO, LOURDES as tolerated by patient ( for better blood glucose control). 2. MD to modify insulin regimen and repalce lytes as needed. 3. consider adding Boost Glucose control TID with meals to supplement oral intake. 4. Nursing staff to supervise meals and encourage oral intake. Expected Outcomes/Goals Expected Outcomes/Goals Oral intake to meet >75% of estimated nutrient needs, weight stable or trends toward ideal body weight, Ca, Na, K and blood glucose levels normalize. F/U in 3-5 days as Moderate risk (03/31-04/02)
[2017-04-05] MEDS: Pantoprazole 40 mg EC Tab PO SCH (12:20)
[2017-04-05] MEDS: Enoxaparin 40 mg/0.4 mL 0.4mL Syr SUBQ SCH (12:21)
[2017-04-05] MEDS: Multivitamin Tab PO SCH (12:21)
[2017-04-05] MEDS ORDERED: Haloperidol Lactate 5 mg/mL 1mL Vial IM PRN (13:10)
--- NOTE | 2017-04-05 14:14 | General Progress Note ---
Subjective - Review of Systems Events since last encounter: no distress no fever Subjective: pt is refusing all meds hypokalemia Objective - Results Result Diagrams: 03/30/17 06:06 03/30/17 06:06 Recent Labs: Laboratory Last Values WBC 4.6 Th/cmm (4.8-10.8) L 03/30/17 06:06 RBC 3.70 Mil/cmm (3.80-5.10) L 03/30/17 06:06 Hgb 11.0 gm/dL (11.7-15.5) L 03/30/17 06:06 Hct 32.4 % (35.0-45.0) L D 03/30/17 06:06 MCV 87.6 fl (81-100) 03/30/17 06:06 MCH 29.9 pg (27.0-31.0) 03/30/17 06:06 MCHC Differential 34.1 pg (28.0-36.0) 03/30/17 06:06 RDW 15.0 % (11.5-20.0) 03/30/17 06:06 Plt Count 181 Th/cmm (150-400) D 03/30/17 06:06 MPV 6.9 fl 03/30/17 06:06 Neutrophils % 58.1 % (40.0-80.0) 03/30/17 06:06 Lymphocytes % 31.9 % (20.0-50.0) 03/30/17 06:06 Monocytes % 7.4 % (2.0-10.0) 03/30/17 06:06 Eosinophils % 1.5 % (0.0-5.0) 03/30/17 06:06 Basophils % 1.1 % (0.0-2.0) 03/30/17 06:06 PT 10.0 SECONDS (9.5-11.5) 03/27/17 22:42 INR 0.96 (0.5-1.4) 03/27/17 22:42 PTT (Actin FS) 29.6 SECONDS (26.0-38.0) 03/27/17 22:42 Sodium 134 mEq/L (136-145) L 03/30/17 06:06 Potassium 2.9 mEq/L (3.5-5.1) L* 03/30/17 06:06 Chloride 101 mEq/L (98-107) 03/30/17 06:06 Carbon Dioxide 22.0 mEq/L (21.0-31.0) 03/30/17 06:06 Anion Gap 13.9 (7.0-16.0) 03/30/17 06:06 BUN 11 mg/dL (7-25) 03/30/17 06:06 Creatinine 0.9 mg/dL (0.6-1.2) 03/30/17 06:06 Est GFR ( Amer) > 60.0 ml/min (>90) 03/30/17 06:06 Est GFR (Non-Af Amer) > 60.0 ml/min 03/30/17 06:06 BUN/Creatinine Ratio 12.2 03/30/17 06:06 Glucose 151 mg/dL (70-105) H 03/30/17 06:06 POC Glucose 140 MG/DL (70 - 105) H 04/05/17 13:12 Hemoglobin A1c % 6.6 % (4.0-6.0) H 03/27/17 22:42 Whole Bld Lactic Acid 1.44 mmol/L (0.60-1.99) 03/27/17 22:42 Calcium 9.1 mg/dL (8.6-10.3) 03/30/17 06:06 Magnesium 2.0 mg/dL (1.9-2.7) 03/27/17 22:42 Total Bilirubin 0.8 mg/dL (0.3-1.0) 03/27/17 22:42 AST 14 U/L (13-39) 03/27/17 22:42 ALT 7 U/L (7-52) 03/27/17 22:42 Alkaline Phosphatase 65 U/L (34-104) 03/27/17 22:42 Creatine Kinase 22 U/L (30-223) L 03/27/17 22:42 Troponin I 0.01 ng/mL (0.01-0.05) 03/28/17 18:26 Total Protein 7.3 gm/dL (6.0-8.3) 03/27/17 22:42 Albumin 4.2 gm/dL (3.7-5.3) 03/27/17 22:42 Globulin 3.1 gm/dL 03/27/17 22:42 Albumin/Globulin Ratio 1.4 (1.0-1.8) 03/27/17 22:42 Triglycerides 321 mg/dL (<150) H 03/28/17 05:50 Cholesterol 226 mg/dL (<200) H 03/28/17 05:50 LDL Cholesterol Direct 131 mg/dL (75-193) 03/28/17 05:50 HDL Cholesterol 41 mg/dL (23-92) 03/28/17 05:50 TSH 1.56 uIU/ml (0.34-5.60) 03/28/17 05:50 Urine Source CLEAN C 03/30/17 12:15 Urine Color YELLOW 03/30/17 12:15 Urine Clarity CLEAR (CLEAR) 03/30/17 12:15 Urine pH 6.0 (4.6 - 8.0) 03/30/17 12:15 Ur Specific [place] 1.010 (1.005-1.030) 03/30/17 12:15 Urine Protein TRACE mg/dL (NEGATIVE) 03/30/17 12:15 Urine Glucose (UA) NEGATIVE mg/dL (NEGATIVE) 03/30/17 12:15 Urine Ketones 40 mg/dL (NEGATIVE) H 03/30/17 12:15 Urine Blood NEGATIVE (NEGATIVE) 03/30/17 12:15 Urine Nitrate POSITIVE (NEGATIVE) H 03/30/17 12:15 Urine Bilirubin SMALL (NEGATIVE) H 03/30/17 12:15 Urine Urobilinogen 0.2 E.U./dL (0.2 - 1.0) 03/30/17 12:15 Ur Leukocyte Esterase SMALL (NEGATIVE) H 03/30/17 12:15 Urine RBC 0-2 /hpf (0-5) 03/30/17 12:15 Urine WBC 6-10 /hpf (0-5) H 03/30/17 12:15 Ur Epithelial Cells NONE SEEN /lpf (FEW) 03/30/17 12:15 Urine Bacteria FEW /hpf (NONE SEEN) 03/30/17 12:15 - Physical Exam Vitals and I&O: Vital Signs Temp 98.2 F 04/05/17 12:00 Pulse 66 04/05/17 12:00 Resp 17 04/05/17 12:00 BP 94/61 04/05/17 12:00 Pulse Ox 98 04/05/17 12:00 Intake & Output 04/04/17 04/05/17 04/05/17 18:59 06:59 18:59 Intake Total 150 50 Balance 150 50 Weight (lbs) 56.245 kg 56.245 kg Intake: Oral 150 50 Other: # Voids 2 2 # Bowel Movements 0 0 Active Medications: Current Medications Acetaminophen (Tylenol) 650 mg PO Q4HR PRN PRN Reason: Mild Pain / Temp above 100 Stop: 05/26/17 23:49 Last Admin: 04/04/17 22:42 Dose: 650 mg Al Hydrox/Mg Hydrox/Simethicone (Maalox) 30 ml PO Q4HR PRN PRN Reason: GI DISTRESS Stop: 05/26/17 23:49 Carvedilol (Coreg) 12.5 mg PO BID [facility] Stop: 05/27/17 08:59 Last Admin: 04/05/17 12:20 Dose: Not Given Duloxetine HCl (Cymbalta) 120 mg PO DAILY [facility] PRN Reason: Protocol Stop: 05/27/17 08:59 Last Admin: 04/05/17 12:20 Dose: Not Given Enalaprilat (Vasotec) 1.25 mg IVP Q6HR PRN PRN Reason: BLOOD PRESSSURE Stop: 05/27/17 11:59 Last Admin: 03/28/17 15:59 Dose: 1.25 mg Enoxaparin Sodium (Lovenox) 40 mg SUBQ DAILY [facility] Stop: 05/27/17 08:59 Last Admin: 04/05/17 12:21 Dose: Not Given Ergocalciferol (Vitamin D) 50,000 iu PO We@0900 [facility] Stop: 05/29/17 08:59 Last Admin: 03/30/17 09:21 Dose: Not Given Gabapentin (Neurontin) 800 mg PO Q8H [facility] Stop: 05/27/17 13:59 Last Admin: 04/04/17 23:59 Dose: 800 mg Haloperidol (Haldol) 2 mg PO BID [facility] PRN Reason: Protocol Stop: 06/02/17 16:59 Haloperidol Lactate (Haldol) 2 mg IM BID PRN PRN Reason: IF PATIENT REFUSE PO HALDOL Stop: 06/04/17 13:09 Sodium Chloride (Nacl 0.9%) 1,000 mls @ 75 mls/hr IV .[id number] [facility] Stop: 05/26/17 23:46 Last Admin: 03/29/17 00:56 Dose: 75 mls/hr Insulin Aspart (Novolog Insulin Sliding Scale) 0 units SUBQ ACHS [facility] PRN Reason: Protocol Stop: 05/27/17 07:29 Last Admin: 04/05/17 13:13 Dose: Not Given Levofloxacin (Levaquin) 250 mg PO DAILY [facility] Stop: 05/30/17 08:59 Last Admin: 04/05/17 12:21 Dose: Not Given Magnesium Hydroxide (Milk Of Magnesia) 30 ml PO HS PRN PRN Reason: Constipation Stop: 05/26/17 23:49 Mirtazapine (Remeron) 15 mg PO HS [facility] PRN Reason: Protocol Stop: 05/27/17 20:59 Last Admin: 04/04/17 22:49 Dose: 15 mg Multivitamins/Vitamin C (Theragran) 1 tab PO DAILY [facility] Stop: 05/27/17 08:59 Last Admin: 04/05/17 12:21 Dose: Not Given Pantoprazole Sodium (Protonix) 40 mg PO QDAC [facility] Stop: 05/27/17 07:29 Last Admin: 04/05/17 12:20 Dose: Not Given Trazodone HCl (Desyrel) 100 mg PO HS [facility] PRN Reason: Protocol Stop: 05/27/17 20:59 Last Admin: 04/04/17 22:49 Dose: 100 mg General: No acute distress HEENT: Atraumatic, PERRLA Neck: Thyromegaly Cardiovascular: Regular rate, Normal S1, Normal S2 Lungs: Clear to auscultation Abdomen: Bowel sounds Assessment/Plan - Problem List Patient Problems: All Active Problems Dehydration (Acute) E86.0 Diabetes (Acute) E11.9 Hypokalemia (Acute) E87.6 Hyponatremia (Acute) E87.1 h/o schizophrenia (Acute) history of psychotic disorder (Acute) history of severe depression (Acute) - Plan Plan: will monitor vitals/diet labs psych as per order sheet Nutritional Asmnt/Malnutr-PDOC - Dietary Evaluation Malnutrition Findings (Please click <Entered> for more info): Nutritional Asmnt/Malnutrition Start: 03/28/17 10: 46 Text: Status: Complete Freq: Document 03/28/17 10:46 MMULHERN (Rec: 03/28/17 10:59 MMAXEL YESICA- FNS1) Nutritional Asmnt/Malnutrition Patient General Information Nutritional Screening High Risk Screening Diagnosis Syncope-dehydration Pertinent Medical Hx/Surgical Hx Diabetes, Idiopathic peripheral neuropathy, insomnia, GERD, chronic pain syndrome, Traumatic brain injury Subjective Information Patient was admitted from [facility] after refusing to eat, drink or take medications and having a syncopal episode. Patient continues to refuse some medical testing. Did not eat breakfast this morning. Current Diet Order/ Nutrition Support [place] 90gm, LOURDES Patient / S.O Not Indicated Pertinent Medications maalox, vitamin D, novolog, MOM, Theragran Pertinent Labs (03/28) Na 134, K 3.4, glucose 246 (POC glucose 276),TAG 321, Cholesterol 226, HgA1C 6.6, Calcium 10.4 Nutritional Hx/Data Height 1.63 m Height (Calculated Centimeters) 162.6 Current Weight (lbs) 51.256 kg Weight (Calculated Kilograms) 51.3 Weight (Calculated Grams) 57438.9 [place] Body Weight 130 % [place] Body Weight 86 Weight Status Approriate GI Symptoms GI Symptoms None Food Allergies No Cultural/Ethnic/Taoist Belief None indicated Usual diet at home Unknown Skin Integrity/Comment: [place] 15, abrasion/ulceration on upper right abdomen Current %PO Negligible < 25% Estimated Nutritional Goals BEE in Kcals: Using Current wt Calories/Kcals/Kg (27-32 kcal/kg) - 86% IBW Kcals Calculated 7539-1252 kcal/day Protein: Using Current wt Protein g/k.1-1.3 gm/kg - ulceration and underweight Protein Calculated 56-66 gm/day Fluid: ml 6371-2126 ml/day (1ml/kcal) Nutritional Problem 2. Problem Problem Altered nutrition related lab values related to Etiology uncontrolled hyperglycemia, electrolyte imbalance Signs/Symptoms: Na 134, k 3.4, glucose 246 ( POC glucose 276), Calcium 10.4 1. Problem Problem Inadequate oral intake related to Etiology refusing meals/unknown reason aeb Signs/Symptoms: meeting <25% of nutrient needs , refusing meals prior to admission. Intervention/Recommendation Comments 1. Modify Diet to 60gm CCHO, LOURDES as tolerated by patient ( for better blood glucose control). 2. MD to modify insulin regimen and repalce lytes as needed. 3. consider adding Boost Glucose control TID with meals to supplement oral intake. 4. Nursing staff to supervise meals and encourage oral intake. Expected Outcomes/Goals Expected Outcomes/Goals Oral intake to meet >75% of estimated nutrient needs, weight stable or trends toward ideal body weight, Ca, Na, K and blood glucose levels normalize. F/U in 3-5 days as Moderate risk (03/31-04/02)
[2017-04-05] MEDS ORDERED: Probiotic Screen MC PRN (16:30)
--- NOTE | 2017-04-06 02:05 | Progress Notes ---
DATE: 04/05/2017 COVERING FOR: Dr. Crawford. The patient was not talking today. Continues to be refusing to take her medication or eat. I had the ____ pill, so I will be having her take the Haldol intramuscular if she refuses p.o. She so far, still not willing to talk or eat or take her medication. We will continue to work with the patient in group therapy, milieu therapy, and adjust medication as needed. JOB# [id number]
[2017-04-06] MEDS ORDERED: Lactobacillus Rhamnosus 10 Billion CFU Capsule PO SCH (09:00)
--- NOTE | 2017-04-25 21:57 | Discharge Summary ---
DATE OF DISCHARGE: 04/05/2017 HOSPITAL COURSE: The patient is a 61-year-old female patient with multiple problems including history of psychiatric disorder and depression, who was admitted actually for severe dehydration, acute renal failure, hyponatremia, hypokalemia, and diabetes, and the patient was treated for all of that and the patient was seen by Dr. Darren Humphries also for her cardiomyopathy for syncope. The patient improved and the patient was in stable condition on 04/05/2017, and the patient was sent back to [place]. Here I will be following the patient. MEDICATIONS: See reconciliation sheet. ACTIVITY: As tolerated. JOB# [id number]
== END 2017-04-05 17:30 | DRG 640 ==
LOC: ER 22:23 → ICU 23:45 → TELE 03-28 07:18 → MSI 03-29 11:22
PROVIDERS: ADMIT Internal Medicine; ATTEND Internal Medicine
DX: E87.1 Hypo-osmolality and hyponatremia (principal); G92 Toxic encephalopathy; E86.0 Dehydration; F33.2 Major depressive disorder, recurrent severe without psychotic features; N39.0 Urinary tract infection, site not specified; R41.3 Other amnesia; E11.42 Type 2 diabetes mellitus with diabetic polyneuropathy; E87.6 Hypokalemia; F20.9 Schizophrenia, unspecified; I10 Essential (primary) hypertension; K21.9 Gastro-esophageal reflux disease without esophagitis; F09 Unspecified mental disorder due to known physiological condition; M54.9 Dorsalgia, unspecified; G89.29 Other chronic pain; Z86.73 Personal history of transient ischemic attack (TIA), and cerebral infarction without residual deficits; Z79.4 Long term (current) use of insulin; Z83.3 Family history of diabetes mellitus
CPT/HCPCS: 36415-UA; 80048-TC; 80053-TC; 80061-TC; 81001-TC; 82550-TC; 82948-90; 83036-90; 83605; 83735-TC; 84443-TC; 84484-TC; 85025-TC; 85610-TC; 93005; J1650; J1815; J2001; J3480; J7030; Z7610

== ENCOUNTER 2017-05-06 21:44 | Inpatient (IN) | payer MEDICARE ==
[2017-05-06 23:08] LABS: % BASOPHILS 0.8 % (0.0-2.0); % EOSINOPHILS 1.1 % (0.0-5.0); % LYMPHOCYTES 37.9 % (20.0-50.0); % MONOCYTES 9.9 % (2.0-10.0); % NEUTROPHILS 50.3 % (40.0-80.0); HEMATOCRIT 34.7 % (41.0-60); HEMOGLOBIN 11.8 gm/dL (12-16); MEAN CELL VOLUME 87.6 fl (81-100); MEAN CORPUSCULAR HEMOGLOBIN 29.9 pg (27.0-31.0); MEAN CORPUSCULAR HGB CONC 34.1 pg (28.0-36.0); MEAN PLATELET VOLUME 6.9 fl; NEUTROPHILE ABSOLUTE 2.2 Th/cmm (1.8-8.0); PLATELET COUNT 185 Th/cmm (150-400); RED BLOOD COUNT 3.96 Mil/cmm (3.80-5.10); RED CELL DISTRIBUTION WIDTH 13.2 % (11.5-20.0); WHITE BLOOD COUNT 4.2 Th/cmm (4.8-10.8)
[2017-05-06 23:14] LABS: ALB/GLOB RATIO 1.5 (1.0-1.8); ALKALINE PHOSPHATASE 50 U/L (34-104); ANION GAP 8.9 (7.0-16.0); BUN - UREA NITROGEN 12 mg/dL (7-25); CALCIUM SERUM 8.3 mg/dL (8.6-10.3); CHLORIDE 97 mEq/L (98-107); CREATININE - SERUM 0.8 mg/dL (0.6-1.2); GLUCOSE 211 mg/dL (70-105); SGOT 42 U/L (13-39); SGPT/ALT 33 U/L (7-52); SODIUM SERUM 134 mEq/L (136-145)
[2017-05-06 23:29] LABS: POTASSIUM SERUM 2.9 mEq/L (3.5-5.1)
[2017-05-06] MEDS ORDERED: Potassium Chloride 20 mEq ER Tab PO ONE ×2 (23:29→23:30)
[2017-05-07] MEDS ORDERED: Potassium Chloride 20 mEq ER Tab PO ONE ×2 (00:11→19:29)
[2017-05-07 01:07] VITALS: BP 124/59
[2017-05-07 06:06] LABS: URINE BILIRUBIN NEGATIVE (NEGATIVE); URINE BLOOD NEGATIVE (NEGATIVE); URINE GLUCOSE (UA) NEGATIVE (NEGATIVE); URINE KETONE NEGATIVE (NEGATIVE); URINE PROTEIN NEGATIVE (NEGATIVE)
[2017-05-07 06:09] LABS: URINE COLOR YELLOW
[2017-05-07 06:12] LABS: URINE BACTERIA FEW /hpf (NONE SEEN); URINE EPITHELIAL CELLS MODERATE /lpf (FEW); URINE RBC 0-2 /hpf (0-5)
[2017-05-07 06:46] LABS: NEUTROPHILE ABSOLUTE 2.1 Th/cmm (1.8-8.0)
[2017-05-07 06:54] LABS: HEMATOCRIT 35.3 % (41.0-60); HEMOGLOBIN 12.1 gm/dL (12-16); MEAN CELL VOLUME 88.2 fl (81-100); MEAN CORPUSCULAR HEMOGLOBIN 30.2 pg (27.0-31.0)
[2017-05-07 06:55] LABS: % BASOPHILS 0.6 % (0.0-2.0); % EOSINOPHILS 1.5 % (0.0-5.0); % MONOCYTES 10.1 % (2.0-10.0); % NEUTROPHILS 51.8 % (40.0-80.0); MEAN CORPUSCULAR HGB CONC 34.3 pg (28.0-36.0); MEAN PLATELET VOLUME 6.5 fl; PLATELET COUNT 194 Th/cmm (150-400); RED CELL DISTRIBUTION WIDTH 12.8 % (11.5-20.0)
[2017-05-07 07:06] LABS: ANION GAP 8.6 (7.0-16.0); BUN - UREA NITROGEN 11 mg/dL (7-25); BUN/CREATININE RATIO 13.8; CALCIUM SERUM 8.1 mg/dL (8.6-10.3); CARBON DIOXIDE 31.1 mEq/L (21.0-31.0); CHLORIDE 97 mEq/L (98-107); CHOLESTEROL 147 mg/dL (<200); CREATININE - SERUM 0.8 mg/dL (0.6-1.2); GLUCOSE 230 mg/dL (70-105); SODIUM SERUM 134 mEq/L (136-145); TRIGLYCERIDES 137 mg/dL (<150)
[2017-05-07 07:22] LABS: POTASSIUM SERUM 2.7 mEq/L (3.5-5.1)
[2017-05-07] MEDS ORDERED: Maalox 30 mL Cup PO PRN (07:26)
[2017-05-07] MEDS ORDERED: Acetaminophen 500 MG TAB PO PRN (07:26)
[2017-05-07] MEDS ORDERED: Magnesium Hydroxide (MOM) 30 mL UDC PO PRN (07:26)
[2017-05-07] MEDS ORDERED: Potassium Chloride 20 mEq ER Tab PO SCH (09:00)
[2017-05-07] MEDS ORDERED: Pneumococcal Vaccine 0.5 mL Vial IM ONE (09:00)
[2017-05-07] MEDS ORDERED: Non-Formulary Item 1 EA (Cranberry Fruit Concentrate [Cranberry] 450 MG) PO SCH (09:00)
[2017-05-07] MEDS ORDERED: Influenza Vaccine 0.5 mL Syr IM ONE (09:00)
[2017-05-07] MEDS: Pantoprazole 40 mg EC Tab PO SCH (09:54)
[2017-05-07] MEDS: Fish Oil 1,000 MG SGL PO SCH (09:55)
[2017-05-07] MEDS: Ferrous Sulfate 325 MG TAB PO SCH (09:55)
[2017-05-07] MEDS: Multivitamin w/ Minerals Tab PO SCH (09:55)
--- NOTE | 2017-05-07 10:12 | History & Physical ---
ADMIT DATE: 05/07/2017 CHIEF COMPLAINT: Altered level of consciousness. HISTORY OF PRESENT ILLNESS: This is a 61-year-old female admitted from a care home facility through the Emergency Room due to altered level of consciousness. REVIEW OF SYSTEMS: GENERAL: A 61-year-old female, who appears stated, no fever, no chills. HEAD: No headache. EYES: No eye pain. No blurring of vision. NECK: No nuchal rigidity. No neck pain. CHEST: No palpitation. No chest pain. PULMONARY: No coughing. No shortness of breath. GASTROINTESTINAL: No abdominal pain. No diarrhea. No constipation. MUSCULOSKELETAL: No joint pain. No muscle pain. SOCIAL HISTORY: The patient lives in a care home facility prior to hospitalization. PAST MEDICAL HISTORY: Includes hypertension, depression, vitamin D deficiency, iron deficiency anemia, neuropathy, gastroesophageal reflux disease, and osteoarthritis. PAST SURGICAL HISTORY: Unremarkable. FAMILY HISTORY: Unremarkable. PHYSICAL EXAMINATION: VITAL SIGNS: Temperature 98.3, heart rate of 65, blood pressure 123/66, respirations of 18, and 100% on room air. HEENT: Head is atraumatic and normocephalic. Eyes: Bilateral conjunctivae are clear. Bilateral pupils are equally round and reactive. NECK: Supple. No JVD. CARDIOVASCULAR: S1 and S2, without murmur. PULMONARY: Clear to auscultation. GASTROINTESTINAL: Soft and nontender without guarding. Positive bowel sounds. MUSCULOSKELETAL: No clubbing. No cyanosis noted ASSESSMENT: 1. Altered level of consciousness. 2. Hypokalemia. 3. Diabetes mellitus. 4. Hypertension. 5. Depression. 6. Gastroesophageal reflux disease. PLAN: Today's, potassium level is ____. We will do replacement. We will keep the patient admitted for monitoring. Treatment plans were discussed with the patient's nurse. Treatment plans were discussed with Dr. Stroud. [facility]# [id number]
[2017-05-08] MEDS: Pantoprazole 40 mg EC Tab PO SCH (07:01)
[2017-05-08 07:08] LABS: ALB/GLOB RATIO 1.2 (1.0-1.8); ALKALINE PHOSPHATASE 55 U/L (34-104); ANION GAP 8.4 (7.0-16.0); BILIRUBIN,TOTAL 0.6 mg/dL (0.3-1.0); BUN - UREA NITROGEN 9 mg/dL (7-25); BUN/CREATININE RATIO 12.9; CALCIUM SERUM 8.3 mg/dL (8.6-10.3); CARBON DIOXIDE 28.3 mEq/L (21.0-31.0); CHLORIDE 97 mEq/L (98-107); CREATININE - SERUM 0.7 mg/dL (0.6-1.2); GLUCOSE 233 mg/dL (70-105); MAGNESIUM 1.8 mg/dL (1.9-2.7); SGOT 27 U/L (13-39); SGPT/ALT 24 U/L (7-52); SODIUM SERUM 131 mEq/L (136-145)
[2017-05-08 07:20] LABS: POTASSIUM SERUM 2.7 mEq/L (3.5-5.1)
[2017-05-08] MEDS: Fish Oil 1,000 MG SGL PO SCH ×2 (09:01→09:51)
[2017-05-08] MEDS: Ferrous Sulfate 325 MG TAB PO SCH (09:01)
[2017-05-08] MEDS: Multivitamin w/ Minerals Tab PO SCH ×2 (09:01→09:51)
--- NOTE | 2017-05-08 09:58 | General Progress Note ---
Subjective - Review of Systems Events since last encounter: patient with no acute distress Objective - Results Result Diagrams: 05/07/17 06:40 05/08/17 05:58 Recent Labs: Laboratory Last Values WBC 4.0 Th/cmm (4.8-10.8) L 05/07/17 06:40 RBC 4.00 Mil/cmm (3.80-5.10) 05/07/17 06:40 Hgb 12.1 gm/dL (12-16) 05/07/17 06:40 Hct 35.3 % (41.0-60) L 05/07/17 06:40 MCV 88.2 fl (81-100) 05/07/17 06:40 MCH 30.2 pg (27.0-31.0) 05/07/17 06:40 MCHC Differential 34.3 pg (28.0-36.0) 05/07/17 06:40 RDW 12.8 % (11.5-20.0) 05/07/17 06:40 Plt Count 194 Th/cmm (150-400) 05/07/17 06:40 MPV 6.5 fl 05/07/17 06:40 Neutrophils % 51.8 % (40.0-80.0) 05/07/17 06:40 Lymphocytes % 36.0 % (20.0-50.0) 05/07/17 06:40 Monocytes % 10.1 % (2.0-10.0) H 05/07/17 06:40 Eosinophils % 1.5 % (0.0-5.0) 05/07/17 06:40 Basophils % 0.6 % (0.0-2.0) 05/07/17 06:40 Sodium 131 mEq/L (136-145) L 05/08/17 05:58 Potassium 2.7 mEq/L (3.5-5.1) L* 05/08/17 05:58 Chloride 97 mEq/L (98-107) L 05/08/17 05:58 Carbon Dioxide 28.3 mEq/L (21.0-31.0) 05/08/17 05:58 Anion Gap 8.4 (7.0-16.0) 05/08/17 05:58 BUN 9 mg/dL (7-25) 05/08/17 05:58 Creatinine 0.7 mg/dL (0.6-1.2) 05/08/17 05:58 Est GFR ( Amer) > 60.0 ml/min (>90) 05/08/17 05:58 Est GFR (Non-Af Amer) > 60.0 ml/min 05/08/17 05:58 BUN/Creatinine Ratio 12.9 05/08/17 05:58 Glucose 233 mg/dL (70-105) H 05/08/17 05:58 POC Glucose 228 MG/DL (70 - 105) H 05/08/17 06:01 Hemoglobin A1c % 7.0 % (4.0-6.0) H 05/06/17 22:47 Calcium 8.3 mg/dL (8.6-10.3) L 05/08/17 05:58 Magnesium 1.8 mg/dL (1.9-2.7) L 05/08/17 05:58 Total Bilirubin 0.6 mg/dL (0.3-1.0) 05/08/17 05:58 AST 27 U/L (13-39) 05/08/17 05:58 ALT 24 U/L (7-52) 05/08/17 05:58 Alkaline Phosphatase 55 U/L (34-104) 05/08/17 05:58 Total Protein 4.9 gm/dL (6.0-8.3) L 05/08/17 05:58 Albumin 2.7 gm/dL (3.7-5.3) L 05/08/17 05:58 Globulin 2.2 gm/dL 05/08/17 05:58 Albumin/Globulin Ratio 1.2 (1.0-1.8) 05/08/17 05:58 Triglycerides 137 mg/dL (<150) 05/07/17 06:40 Cholesterol 147 mg/dL (<200) 05/07/17 06:40 LDL Cholesterol Direct 63 mg/dL (75-193) L 05/07/17 06:40 HDL Cholesterol 59 mg/dL (23-92) 05/07/17 06:40 TSH 1.11 uIU/ml (0.34-5.60) 05/07/17 06:40 Urine Source RANDOM 05/07/17 00:53 Urine Color YELLOW 05/07/17 00:53 Urine Clarity HAZY (CLEAR) 05/07/17 00:53 Urine pH 7.0 (4.6 - 8.0) 05/07/17 00:53 Ur Specific [place] <= 1.005 (1.005-1.030) 05/07/17 00:53 Urine Protein NEGATIVE mg/dL (NEGATIVE) 05/07/17 00:53 Urine Glucose (UA) NEGATIVE mg/dL (NEGATIVE) 05/07/17 00:53 Urine Ketones NEGATIVE mg/dL (NEGATIVE) 05/07/17 00:53 Urine Blood NEGATIVE (NEGATIVE) 05/07/17 00:53 Urine Nitrate NEGATIVE (NEGATIVE) 05/07/17 00:53 Urine Bilirubin NEGATIVE (NEGATIVE) 05/07/17 00:53 Urine Urobilinogen 1.0 E.U./dL (0.2 - 1.0) 05/07/17 00:53 Ur Leukocyte Esterase MODERATE (NEGATIVE) H 05/07/17 00:53 Urine RBC 0-2 /hpf (0-5) 05/07/17 00:53 Urine WBC 6-10 /hpf (0-5) H 05/07/17 00:53 Ur Epithelial Cells MODERATE /lpf (FEW) 05/07/17 00:53 Urine Bacteria FEW /hpf (NONE SEEN) 05/07/17 00:53 - Physical Exam Vitals and I&O: Vital Signs Temp 97.1 F 05/08/17 08:00 Pulse 80 05/08/17 08:58 Resp 18 05/08/17 08:00 BP 115/64 05/08/17 08:58 Pulse Ox 95 05/08/17 08:00 Intake & Output 05/07/17 05/08/17 05/08/17 18:59 06:59 18:59 Weight (lbs) 52.163 kg 52.163 kg Other: Stool Characteristics Soft Formed Active Medications: Current Medications Acetaminophen (Tylenol) 650 mg PO Q4HR PRN PRN Reason: Mild Pain or Fever >101 Stop: 07/06/17 07:25 Acetaminophen (Tylenol Extra Strength) 500 mg PO Q4HR PRN PRN Reason: Pain (Moderate) Stop: 07/06/17 07:25 Al Hydrox/Mg Hydrox/Simethicone (Maalox) 30 ml PO Q4HR PRN PRN Reason: GI DISTRESS Stop: 07/06/17 07:25 Carvedilol (Coreg) 12.5 mg PO BID [facility] Stop: 07/06/17 08:59 Last Admin: 05/08/17 08:58 Dose: 12.5 mg Duloxetine HCl (Cymbalta) 120 mg PO DAILY [facility] Stop: 07/06/17 08:59 Last Admin: 05/08/17 09:50 Dose: Not Given Ergocalciferol (Vitamin D) 50,000 iu PO QWEEK [facility] Stop: 07/10/17 07:29 Ferrous Sulfate (Iron) 325 mg PO DAILY [facility] Stop: 07/06/17 08:59 Last Admin: 05/08/17 09:01 Dose: 325 mg Fish Oil ([place] 3) 1,000 mg PO DAILY [facility] Stop: 07/06/17 08:59 Last Admin: 05/08/17 09:51 Dose: Not Given Gabapentin (Neurontin) 800 mg PO Q8HR [facility] Stop: 07/06/17 08:54 Last Admin: 05/08/17 05:25 Dose: Not Given Lorazepam (Ativan) 1 mg PO Q4HR PRN; Protocol PRN Reason: Anxiety Stop: 07/06/17 07:25 Magnesium Hydroxide (Milk Of Magnesia) 30 ml PO HS PRN PRN Reason: Constipation Stop: 07/06/17 07:25 Mirtazapine (Remeron) 15 mg PO HS [facility] PRN Reason: Protocol Stop: 07/06/17 20:59 Pantoprazole Sodium (Protonix) 40 mg PO QDAC [facility] Stop: 07/06/17 07:29 Last Admin: 05/08/17 07:01 Dose: Not Given Tramadol HCl (Ultram) 50 mg PO Q4H PRN PRN Reason: Pain (Severe) Stop: 07/06/17 07:25 Last Admin: 05/08/17 07:35 Dose: 50 mg Trazodone HCl (Desyrel) 100 mg PO HS [facility] Stop: 07/06/17 20:59 General: No acute distress HEENT: Atraumatic Neck: Supple Cardiovascular: Regular rate, Normal S1 Assessment/Plan - Problem List Patient Problems: All Active Problems Dehydration (Acute) E86.0 Diabetes (Acute) E11.9 Hypokalemia (Acute) E87.6 Hyponatremia (Acute) E87.1 h/o schizophrenia (Acute) history of psychotic disorder (Acute) history of severe depression (Acute) - Plan Plan: cpm Nutritional Asmnt/Malnutr-PDOC - Dietary Evaluation Malnutrition Findings (Please click <Entered> for more info): Nutritional Asmnt/Malnutrition Start: 05/07/17 11: 13 Text: Status: Complete Freq: Document 05/07/17 11:13 ZACH (Rec: 05/07/17 11:18 ZACH CARRENON- [email or web address]) Nutritional Asmnt/Malnutrition Patient General Information Nutritional Screening Consult Diagnosis ALOC, hypkalemia Pertinent Medical Hx/Surgical Hx DM Subjective Information Pt stated that she had a lack of appetite due to back pain Current Diet Order/ Nutrition Support 2g Ns diet Pertinent Medications maalox, vit D, Fe, MOM, protonix, KCl (40mEq x 1/day), tramadol Pertinent Labs Na 134, K 2.7, Cl97, CO2 31.1, BUN 11, Cr 0.8, Ca 8.1, glucose 230 Nutritional Hx/Data Height 1.68 m Height (Calculated Centimeters) 167.6 Current Weight (lbs) 57.334 kg Weight (Calculated Kilograms) 57.3 Weight (Calculated Grams) 13182.1 Recent Weight Change No Weight Status Approriate GI Symptoms GI Symptoms None Food Allergies No Cultural/Ethnic/Taoist Belief Pt denies Usual diet at home Pt states "regular" Skin Integrity/Comment: daniel score 16 Current %PO Good (75-100%) Estimated Nutritional Goals BEE in Kcals: Using Current wt Calories/Kcals/Kg 25-30kcals/kg Kcals Calculated 1425-1710kcals/day Protein: Using Current wt Protein g/kg/kg Protein Calculated 57g/day Fluid: ml 1425-1710ml/day (1ml/kcal) Nutritional Problem 1. Problem Problem altered nutrition related lab values Etiology related to endocrine dysfunction as evidenced by Signs/Symptoms: glucose 211 on admisson Intervention/Recommendation Comments Recommend 2g Na CCHO diet. Expected Outcomes/Goals Expected Outcomes/Goals labs WNL
[2017-05-08] MEDS ORDERED: Potassium Chloride 20 mEq ER Tab PO ONE (11:30)
[2017-05-09] MEDS: Multivitamin w/ Minerals Tab PO SCH (08:50)
[2017-05-09] MEDS: Pantoprazole 40 mg EC Tab PO SCH (08:51)
[2017-05-09] MEDS: Fish Oil 1,000 MG SGL PO SCH (08:51)
[2017-05-09] MEDS: Ferrous Sulfate 325 MG TAB PO SCH (08:51)
--- NOTE | 2017-05-09 14:12 | Internal Medicine Prog Note ---
Internal Medicine Subjective - Subjective Service Date: 05/09/17 Patient seen and examined:: with staff Patient is:: awake, verbal Per staff patient has:: no adverse event Internal Medicine Objective - Results Result Diagrams: 05/07/17 06:40 05/08/17 05:58 Recent Labs: Laboratory Last Values WBC 4.0 Th/cmm (4.8-10.8) L 05/07/17 06:40 RBC 4.00 Mil/cmm (3.80-5.10) 05/07/17 06:40 Hgb 12.1 gm/dL (12-16) 05/07/17 06:40 Hct 35.3 % (41.0-60) L 05/07/17 06:40 MCV 88.2 fl (81-100) 05/07/17 06:40 MCH 30.2 pg (27.0-31.0) 05/07/17 06:40 MCHC Differential 34.3 pg (28.0-36.0) 05/07/17 06:40 RDW 12.8 % (11.5-20.0) 05/07/17 06:40 Plt Count 194 Th/cmm (150-400) 05/07/17 06:40 MPV 6.5 fl 05/07/17 06:40 Neutrophils % 51.8 % (40.0-80.0) 05/07/17 06:40 Lymphocytes % 36.0 % (20.0-50.0) 05/07/17 06:40 Monocytes % 10.1 % (2.0-10.0) H 05/07/17 06:40 Eosinophils % 1.5 % (0.0-5.0) 05/07/17 06:40 Basophils % 0.6 % (0.0-2.0) 05/07/17 06:40 Sodium 131 mEq/L (136-145) L 05/08/17 05:58 Potassium 2.7 mEq/L (3.5-5.1) L* 05/08/17 05:58 Chloride 97 mEq/L (98-107) L 05/08/17 05:58 Carbon Dioxide 28.3 mEq/L (21.0-31.0) 05/08/17 05:58 Anion Gap 8.4 (7.0-16.0) 05/08/17 05:58 BUN 9 mg/dL (7-25) 05/08/17 05:58 Creatinine 0.7 mg/dL (0.6-1.2) 05/08/17 05:58 Est GFR ( Amer) > 60.0 ml/min (>90) 05/08/17 05:58 Est GFR (Non-Af Amer) > 60.0 ml/min 05/08/17 05:58 BUN/Creatinine Ratio 12.9 05/08/17 05:58 Glucose 233 mg/dL (70-105) H 05/08/17 05:58 POC Glucose 197 MG/DL (70 - 105) H 05/09/17 11:22 Hemoglobin A1c % 7.0 % (4.0-6.0) H 05/06/17 22:47 Calcium 8.3 mg/dL (8.6-10.3) L 05/08/17 05:58 Magnesium 1.8 mg/dL (1.9-2.7) L 05/08/17 05:58 Total Bilirubin 0.6 mg/dL (0.3-1.0) 05/08/17 05:58 AST 27 U/L (13-39) 05/08/17 05:58 ALT 24 U/L (7-52) 05/08/17 05:58 Alkaline Phosphatase 55 U/L (34-104) 05/08/17 05:58 Total Protein 4.9 gm/dL (6.0-8.3) L 05/08/17 05:58 Albumin 2.7 gm/dL (3.7-5.3) L 05/08/17 05:58 Globulin 2.2 gm/dL 05/08/17 05:58 Albumin/Globulin Ratio 1.2 (1.0-1.8) 05/08/17 05:58 Triglycerides 137 mg/dL (<150) 05/07/17 06:40 Cholesterol 147 mg/dL (<200) 05/07/17 06:40 LDL Cholesterol Direct 63 mg/dL (75-193) L 05/07/17 06:40 HDL Cholesterol 59 mg/dL (23-92) 05/07/17 06:40 TSH 1.11 uIU/ml (0.34-5.60) 05/07/17 06:40 Urine Source RANDOM 05/07/17 00:53 Urine Color YELLOW 05/07/17 00:53 Urine Clarity HAZY (CLEAR) 05/07/17 00:53 Urine pH 7.0 (4.6 - 8.0) 05/07/17 00:53 Ur Specific [place] <= 1.005 (1.005-1.030) 05/07/17 00:53 Urine Protein NEGATIVE mg/dL (NEGATIVE) 05/07/17 00:53 Urine Glucose (UA) NEGATIVE mg/dL (NEGATIVE) 05/07/17 00:53 Urine Ketones NEGATIVE mg/dL (NEGATIVE) 05/07/17 00:53 Urine Blood NEGATIVE (NEGATIVE) 05/07/17 00:53 Urine Nitrate NEGATIVE (NEGATIVE) 05/07/17 00:53 Urine Bilirubin NEGATIVE (NEGATIVE) 05/07/17 00:53 Urine Urobilinogen 1.0 E.U./dL (0.2 - 1.0) 05/07/17 00:53 Ur Leukocyte Esterase MODERATE (NEGATIVE) H 05/07/17 00:53 Urine RBC 0-2 /hpf (0-5) 05/07/17 00:53 Urine WBC 6-10 /hpf (0-5) H 05/07/17 00:53 Ur Epithelial Cells MODERATE /lpf (FEW) 05/07/17 00:53 Urine Bacteria FEW /hpf (NONE SEEN) 05/07/17 00:53 - Physical Exam Vitals and I&O: Vital Signs Temp 98.3 F 05/09/17 12:00 Pulse 68 05/09/17 12:00 Resp 17 05/09/17 12:00 BP 128/83 05/09/17 12:00 Pulse Ox 98 05/09/17 12:00 Intake & Output 05/08/17 05/09/17 05/09/17 18:59 06:59 18:59 Intake Total 938 Balance 938 Weight (lbs) 115 lb 129 lb 8 oz Intake: Oral 938 Other: # Voids 3 # Bowel Movements 0 Active Medications: Current Medications Acetaminophen (Tylenol) 650 mg PO Q4HR PRN PRN Reason: Mild Pain or Fever >101 Stop: 07/06/17 07:25 Acetaminophen (Tylenol Extra Strength) 500 mg PO Q4HR PRN PRN Reason: Pain (Moderate) Stop: 07/06/17 07:25 Al Hydrox/Mg Hydrox/Simethicone (Maalox) 30 ml PO Q4HR PRN PRN Reason: GI DISTRESS Stop: 07/06/17 07:25 Carvedilol (Coreg) 12.5 mg PO BID [facility] Stop: 07/06/17 08:59 Last Admin: 05/09/17 10:49 Dose: Not Given Duloxetine HCl (Cymbalta) 120 mg PO DAILY [facility] Stop: 07/06/17 08:59 Last Admin: 05/09/17 08:53 Dose: Not Given Ergocalciferol (Vitamin D) 50,000 iu PO QWEEK [facility] Stop: 07/10/17 07:29 Ferrous Sulfate (Iron) 325 mg PO DAILY [facility] Stop: 07/06/17 08:59 Last Admin: 05/09/17 08:51 Dose: 325 mg Fish Oil ([place] 3) 1,000 mg PO DAILY [facility] Stop: 07/06/17 08:59 Last Admin: 05/09/17 08:51 Dose: 1,000 mg Gabapentin (Neurontin) 800 mg PO Q8HR [facility] Stop: 07/06/17 08:54 Last Admin: 05/09/17 12:16 Dose: 800 mg Insulin Aspart (Novolog Insulin Sliding Scale) 1 units SUBQ ACHS [facility] PRN Reason: Protocol Stop: 07/08/17 16:29 Lorazepam (Ativan) 1 mg PO Q4HR PRN; Protocol PRN Reason: Anxiety Stop: 07/06/17 07:25 Magnesium Hydroxide (Milk Of Magnesia) 30 ml PO HS PRN PRN Reason: Constipation Stop: 07/06/17 07:25 Mirtazapine (Remeron) 15 mg PO HS [facility] PRN Reason: Protocol Stop: 07/06/17 20:59 Last Admin: 05/08/17 21:08 Dose: Not Given Pantoprazole Sodium (Protonix) 40 mg PO QDAC [facility] Stop: 07/06/17 07:29 Last Admin: 05/09/17 08:51 Dose: 40 mg Potassium Chloride (Klor-Con) 20 meq PO X1 ONE Stop: 05/09/17 13:24 Tramadol HCl (Ultram) 50 mg PO Q4H PRN PRN Reason: Pain (Severe) Stop: 07/06/17 07:25 Last Admin: 05/08/17 07:35 Dose: 50 mg Trazodone HCl (Desyrel) 100 mg PO HS [facility] Stop: 07/06/17 20:59 Last Admin: 05/08/17 21:08 Dose: Not Given General: alert HEENT: NC/AT, PERRLA Neck: Supple Lungs: CTAB Cardiovascular: RRR, Normal S1, Normal S2, without murmur Abdomen: soft, non-tender, non-distended, positive bowel sound Neurological: alert Internal Medicine Assmt/Plan - Assessment Assessment: Dehydration (Acute) E86.0 Diabetes (Acute) E11.9 Hypokalemia (Acute) E87.6 Hyponatremia (Acute) E87.1 h/o schizophrenia (Acute) history of psychotic disorder (Acute) history of severe depression (Acute) - Plan Plan: continue ivf for hydration monitor electrolytes monitor glucose level continue current plan of care Nutritional Asmnt/Malnutr-PDOC - Dietary Evaluation Malnutrition Findings (Please click <Entered> for more info): Nutritional Asmnt/Malnutrition Start: 05/07/17 11: 13 Text: Status: Complete Freq: Document 05/07/17 11:13 ZACH (Rec: 05/07/17 11:18 ZACH ROBERT [email or web address]) Nutritional Asmnt/Malnutrition Patient General Information Nutritional Screening Consult Diagnosis ALOC, hypkalemia Pertinent Medical Hx/Surgical Hx DM Subjective Information Pt stated that she had a lack of appetite due to back pain Current Diet Order/ Nutrition Support 2g Ns diet Pertinent Medications maalox, vit D, Fe, MOM, protonix, KCl (40mEq x 1/day), tramadol Pertinent Labs Na 134, K 2.7, Cl97, CO2 31.1, BUN 11, Cr 0.8, Ca 8.1, glucose 230 Nutritional Hx/Data Height 5 ft 6 in Height (Calculated Centimeters) 167.6 Current Weight (lbs) 126 lb 6.4 oz Weight (Calculated Kilograms) 57.3 Weight (Calculated Grams) 64239.1 Recent Weight Change No Weight Status Approriate GI Symptoms GI Symptoms None Food Allergies No Cultural/Ethnic/Synagogue Belief Pt denies Usual diet at home Pt states "regular" Skin Integrity/Comment: daniel score 16 Current %PO Good (75-100%) Estimated Nutritional Goals BEE in Kcals: Using Current wt Calories/Kcals/Kg 25-30kcals/kg Kcals Calculated 1425-1710kcals/day Protein: Using Current wt Protein g/kg/kg Protein Calculated 57g/day Fluid: ml 1425-1710ml/day (1ml/kcal) Nutritional Problem 1. Problem Problem altered nutrition related lab values Etiology related to endocrine dysfunction as evidenced by Signs/Symptoms: glucose 211 on admisson Intervention/Recommendation Comments Recommend 2g Na CCHO diet. Expected Outcomes/Goals Expected Outcomes/Goals labs WNL
[2017-05-09] MEDS ORDERED: Potassium Chloride 20 mEq ER Tab PO ONE (15:00)
--- NOTE | 2017-05-09 17:25 | Consultation ---
DATE OF CONSULTATION: 05/09/2017 TYPE OF THE REPORT: Psychiatric consult. AGE: 61. SEX: Female. PHYSICIAN: Dr. Stroud. SHIPPING WEIGHER: Dr. Crawford. REASON FOR THE CONSULT: Confusion and agitation. HISTORY OF PRESENT ILLNESS: The patient is a 61-year-old female, who was admitted to the hospital because of altered level of consciousness. The patient has been irritable and has been agitated and confused. Chart reviewed and the patient interviewed and discussed the patient's condition with the staff and reviewed records and labs. "Nothing wrong with me." The patient said that she is living with her mother and she denied that [facility]. The patient lives in [place]. She said that she has no children. She denies alcohol or drug use. The patient seems to be confused when I was talking to her and she denied that she is taking any psychiatric medications, but the patient is on Cymbalta 120 mg everyday, as well as gabapentin 800 mg 3 times a day, and Remeron 50 mg at bedtime. The patient also is taking Ativan on a p.r.n. basis. PAST MEDICAL HISTORY: The patient was admitted with altered level of consciousness. The patient also is diabetic and has a pacemaker. SOCIAL HISTORY: The patient lives in [facility]. No known alcohol or drug use. ALLERGIES: No known allergies. MENTAL STATUS EXAM: The patient appears slightly older than her stated age. Anxious. Suspicious and paranoid. Thought processes are mainly goal directed, but occasionally circumstantial and tangential with flight of ideas. The patient denies any suicidal or homicidal ideations. The patient is alert and oriented to the situation, but not place or person. Poor insight and judgment. PRIMARY DIAGNOSIS: Schizoaffective disorder, bipolar type, with psychotic features. TREATMENT PLAN: We will continue current medications. We will reevaluate for further recommendations. Thanks to Dr. Stroud and will follow up with you. JOB# [id number]
[2017-05-09] MEDS: INSULIN ASPART SLIDING SCALE 100 UNITS/ML UNIT SUBQ SCH ×2 (17:46→22:57)
[2017-05-10 05:59] LABS: % BASOPHILS 0.8 % (0.0-2.0); % EOSINOPHILS 1.5 % (0.0-5.0); % LYMPHOCYTES 33.2 % (20.0-50.0); % MONOCYTES 9.3 % (2.0-10.0); % NEUTROPHILS 55.2 % (40.0-80.0); HEMATOCRIT 32.8 % (41.0-60); HEMOGLOBIN 10.9 gm/dL (12-16); MEAN CELL VOLUME 89.4 fl (81-100); MEAN CORPUSCULAR HEMOGLOBIN 29.8 pg (27.0-31.0); MEAN CORPUSCULAR HGB CONC 33.3 pg (28.0-36.0); MEAN PLATELET VOLUME 7.2 fl; NEUTROPHILE ABSOLUTE 2.2 Th/cmm (1.8-8.0); PLATELET COUNT 159 Th/cmm (150-400); RED BLOOD COUNT 3.67 Mil/cmm (3.80-5.10); RED CELL DISTRIBUTION WIDTH 13.1 % (11.5-20.0)
[2017-05-10 06:13] LABS: ANION GAP 7.2 (7.0-16.0); BUN - UREA NITROGEN 13 mg/dL (7-25); BUN/CREATININE RATIO 16.3; CALCIUM SERUM 8.1 mg/dL (8.6-10.3); CARBON DIOXIDE 28.4 mEq/L (21.0-31.0); CHLORIDE 100 mEq/L (98-107); CREATININE - SERUM 0.8 mg/dL (0.6-1.2); GLUCOSE 427 mg/dL (70-105); POTASSIUM SERUM 3.6 mEq/L (3.5-5.1); SODIUM SERUM 132 mEq/L (136-145)
[2017-05-10] MEDS: INSULIN ASPART SLIDING SCALE 100 UNITS/ML UNIT SUBQ SCH ×3 (06:34→16:38)
[2017-05-10] MEDS: Pantoprazole 40 mg EC Tab PO SCH (06:41)
--- NOTE | 2017-05-10 08:23 | Progress Notes ---
DATE: SUBJECTIVE: Chart reviewed and the patient interviewed. Also discussed the patient's condition with the staff and reviewed records and labs. The patient is calm and she is also delusional and paranoid, but no major behavioral issues or problems. She also continues to comply with taking her medications with no side effects of medications. The patient is still in denial of her medical problems. At the same time, she is not argumentative about treatment of her medications. PLAN: We will continue same dose and same medications and we will continue to follow up closely. [facility]# [id number]
[2017-05-10] MEDS: Multivitamin w/ Minerals Tab PO SCH (10:31)
[2017-05-10] MEDS: Ferrous Sulfate 325 MG TAB PO SCH (10:31)
[2017-05-10] MEDS: Fish Oil 1,000 MG SGL PO SCH (10:31)
--- NOTE | 2017-05-10 12:38 | Progress Notes ---
DATE: ADDENDUM Staff reports that the patient has not been able to sleep well at night and she does not sleep most of last night. She also continues to be forgetful and confused. She also still has problems with her mood. The patient is taking trazodone and we will increase the dose to 150 mg at bedtime. TREATMENT PLAN: We will continue to monitor her medications and her condition closely. [facility]# [id number]
--- NOTE | 2017-05-10 14:36 | ER Physician Documentation ---
DATE OF SERVICE: HISTORY OF PRESENT ILLNESS: A 61-year-old female patient. Weight is 56.24 kilograms. Body surface area is 1.6 square meters. ALLERGIES: No known allergies. The orders that were already put in, thanks to Kaleb; EKG, CT of the head, chest x-ray, and the lab workup have been ordered. This is a patient of Dr. Stroud who came from [facility]. The address of the [facility] is [address] [place] [id number], telephone number [phone]. REASON: Dr. Irwin Stroud referred the patient to this institution because the patient had altered level of consciousness and hence the patient was referred to this institution. The patient's other chief complaint is that the patient has many diagnoses in order for me not to repeat this diagnosis now and then to repeat again towards the end I would just outline a few major ones here and then outline everything towards the end of the dictation. The EKG was done by the vehicle glass technician and we thank him for his kind work. EKG showing normal sinus rhythm, left ventricular hypertrophy with strain pattern seen in the I, aVL, V5, V6, so LVH with strain is noted. There is a suggestion of possible left atrial enlargement is seen. No other cardiac arrhythmias are noted. The patient was seen by me and the patient's vital signs were found to be stable. The nurse is checking serum glucose level as the patient's diagnosis was type 2 diabetes mellitus without any complications, but I do not think this is the diagnosis. The patient also has muscle weakness, dysphagia, abnormal posture, polyneuropathy, GERD, etc. HISTORY OF PRESENT ILLNESS: The reason for transfer as per the nurses that upon rounding at 3:00, the resident in the bed, was awake and was watching TV. She was found to be stable, alert, and oriented x 4. She was not found to be in any distress at 4:00 p.m. Resident was offered afternoon p.m. medication, but she refused. CN explained risk and resident verbalized understanding. Resident also refused dinner at 5:00. She only ate 30% of the food. Snack was offered, resident declined. At 5:30 p.m. per the nurse and another nurse also came asked him about the condition of the patient. No verbalization was given by the patient. The patient was found to be dehydrated by the nurse. The vital signs taken by the nurse in the [facility], where Dr. Stroud takes care of the patient, showed the blood pressure to be 136/78, temperature 98.2, respiratory rate is 18, heart rate of 80. Dr. Stroud was notified. Oxygen saturation was 100% and hence the patient was sent over here for treatment. I see that the patient also has a permanent pacemaker inserted. The name of the company of the pacemaker is [employer] and it is Efe MCCLURE, the number of the pacemaker ID card is [id number]. Date of this pacemaker was 07/24/2013, that is the time that the thing was inserted. PAST MEDICAL HISTORY: Positive for schizophrenia, diabetes mellitus, ____. REVIEW OF SYSTEMS: Could not be obtained because the patient is lethargic, unresponsive, not giving any answers. PHYSICAL EXAMINATION: VITAL SIGNS: Appears to be normal. Blood sugar will be checked by the nurse. EYES: Conjunctivae show pallor. GENERAL: The body is emaciated. She is adequately built, but poorly nourished. EXTREMITIES: There is no edema over the legs. No cyanosis, no petechia. No ecchymosis. No evidence of any meningeal signs. CHEST: Trachea to be central, fairly decent air entry present in both lung cruz without any rales, rhonchi, or bronchial breathing. ABDOMEN: Soft. Has a surgical scar of previous laparoscopic surgery. Permanent pacemaker is noted. The patient's abdomen is soft. Liver, spleen not enlarged. No free fluid in the abdominal cavity. HEART: Normal heart sounds. No fourth heart sound. Second heart sound physiologically split. Third heart sound is absent. The patient's EKG was done, did not show any pacemaker spike, it shows suggestion of possible left atrial enlargement, left ventricular hypertrophy with strain pattern in the anterolateral area. There is I, aVL, V4-V6 is showing some ischemia level. CENTRAL NERVOUS SYSTEM: Within normal limits. GENITOURINARY: Benign and negative. ENDOCRINE: Negative. DIAGNOSES: Acute loss of consciousness and psychosis and other diagnosis that the patient was carrying before included weakness, type 2 diabetes mellitus without any complication, essential hypertension, dysphagia, muscle weakness, unspecified abnormalities of gait and mobility. The patient has abnormal posture, polyneuropathy, major depressive disorder, insomnia, gastroesophageal reflux disease without any esophagitis. The patient has a permanent pacemaker in place. The patient's blood pressure was 110/64, saturation of 97%. The patient also has a permanent pacemaker in place. The patient has a psychiatric diagnosis of schizophrenia, hypertension, gastroesophageal reflux disease, insomnia. The reason for patient's unconsciousness and irresponsible is whether the patient has any sepsis or the patient has a psychiatric problem needs to be evaluated. Dr. Stroud knows the patient well and he would do the needful. In the meantime, some standard orders will be added to this patient. Thank you again Dr. Stroud for your kindness in everything that you have done. The pacemaker alert was [employer] pacemaker, inserted on 07/24/2013, is Efe sánchez dual chamber, serial #[id number]. JOB# [id number]
--- NOTE | 2017-05-10 15:17 | General Progress Note ---
Subjective - Review of Systems Events since last encounter: patient awake delusional at times , no distress compliant with meds Objective - Results Result Diagrams: 05/10/17 05:42 05/10/17 05:42 Recent Labs: Laboratory Last Values WBC 4.0 Th/cmm (4.8-10.8) L 05/10/17 05:42 RBC 3.67 Mil/cmm (3.80-5.10) L 05/10/17 05:42 Hgb 10.9 gm/dL (12-16) L 05/10/17 05:42 Hct 32.8 % (41.0-60) L 05/10/17 05:42 MCV 89.4 fl (81-100) 05/10/17 05:42 MCH 29.8 pg (27.0-31.0) 05/10/17 05:42 MCHC Differential 33.3 pg (28.0-36.0) 05/10/17 05:42 RDW 13.1 % (11.5-20.0) 05/10/17 05:42 Plt Count 159 Th/cmm (150-400) 05/10/17 05:42 MPV 7.2 fl 05/10/17 05:42 Neutrophils % 55.2 % (40.0-80.0) 05/10/17 05:42 Lymphocytes % 33.2 % (20.0-50.0) 05/10/17 05:42 Monocytes % 9.3 % (2.0-10.0) 05/10/17 05:42 Eosinophils % 1.5 % (0.0-5.0) 05/10/17 05:42 Basophils % 0.8 % (0.0-2.0) 05/10/17 05:42 Sodium 132 mEq/L (136-145) L 05/10/17 05:42 Potassium 3.6 mEq/L (3.5-5.1) 05/10/17 05:42 Chloride 100 mEq/L (98-107) 05/10/17 05:42 Carbon Dioxide 28.4 mEq/L (21.0-31.0) 05/10/17 05:42 Anion Gap 7.2 (7.0-16.0) 05/10/17 05:42 BUN 13 mg/dL (7-25) 05/10/17 05:42 Creatinine 0.8 mg/dL (0.6-1.2) 05/10/17 05:42 Est GFR ( Amer) > 60.0 ml/min (>90) 05/10/17 05:42 Est GFR (Non-Af Amer) > 60.0 ml/min 05/10/17 05:42 BUN/Creatinine Ratio 16.3 05/10/17 05:42 Glucose 427 mg/dL (70-105) H 05/10/17 05:42 POC Glucose 186 MG/DL (70 - 105) H 05/10/17 12:38 Hemoglobin A1c % 7.0 % (4.0-6.0) H 05/06/17 22:47 Calcium 8.1 mg/dL (8.6-10.3) L 05/10/17 05:42 Magnesium 1.8 mg/dL (1.9-2.7) L 05/08/17 05:58 Total Bilirubin 0.6 mg/dL (0.3-1.0) 05/08/17 05:58 AST 27 U/L (13-39) 05/08/17 05:58 ALT 24 U/L (7-52) 05/08/17 05:58 Alkaline Phosphatase 55 U/L (34-104) 05/08/17 05:58 Total Protein 4.9 gm/dL (6.0-8.3) L 05/08/17 05:58 Albumin 2.7 gm/dL (3.7-5.3) L 05/08/17 05:58 Globulin 2.2 gm/dL 05/08/17 05:58 Albumin/Globulin Ratio 1.2 (1.0-1.8) 05/08/17 05:58 Triglycerides 137 mg/dL (<150) 05/07/17 06:40 Cholesterol 147 mg/dL (<200) 05/07/17 06:40 LDL Cholesterol Direct 63 mg/dL (75-193) L 05/07/17 06:40 HDL Cholesterol 59 mg/dL (23-92) 05/07/17 06:40 TSH 1.11 uIU/ml (0.34-5.60) 05/07/17 06:40 Urine Source RANDOM 05/07/17 00:53 Urine Color YELLOW 05/07/17 00:53 Urine Clarity HAZY (CLEAR) 05/07/17 00:53 Urine pH 7.0 (4.6 - 8.0) 05/07/17 00:53 Ur Specific [place] <= 1.005 (1.005-1.030) 05/07/17 00:53 Urine Protein NEGATIVE mg/dL (NEGATIVE) 05/07/17 00:53 Urine Glucose (UA) NEGATIVE mg/dL (NEGATIVE) 05/07/17 00:53 Urine Ketones NEGATIVE mg/dL (NEGATIVE) 05/07/17 00:53 Urine Blood NEGATIVE (NEGATIVE) 05/07/17 00:53 Urine Nitrate NEGATIVE (NEGATIVE) 05/07/17 00:53 Urine Bilirubin NEGATIVE (NEGATIVE) 05/07/17 00:53 Urine Urobilinogen 1.0 E.U./dL (0.2 - 1.0) 05/07/17 00:53 Ur Leukocyte Esterase MODERATE (NEGATIVE) H 05/07/17 00:53 Urine RBC 0-2 /hpf (0-5) 05/07/17 00:53 Urine WBC 6-10 /hpf (0-5) H 05/07/17 00:53 Ur Epithelial Cells MODERATE /lpf (FEW) 05/07/17 00:53 Urine Bacteria FEW /hpf (NONE SEEN) 05/07/17 00:53 - Physical Exam Vitals and I&O: Vital Signs Temp 97.7 F 05/10/17 12:00 Pulse 64 05/10/17 12:00 Resp 16 05/10/17 12:00 BP 84/58 05/10/17 12:00 Pulse Ox 99 05/10/17 12:00 Intake & Output 05/09/17 05/10/17 05/10/17 18:59 06:59 18:59 Weight (lbs) 58.513 kg 53.66 kg Other: # Voids 3 3 Active Medications: Current Medications Acetaminophen (Tylenol) 650 mg PO Q4HR PRN PRN Reason: Mild Pain or Fever >101 Stop: 07/06/17 07:25 Acetaminophen (Tylenol Extra Strength) 500 mg PO Q4HR PRN PRN Reason: Pain (Moderate) Stop: 07/06/17 07:25 Al Hydrox/Mg Hydrox/Simethicone (Maalox) 30 ml PO Q4HR PRN PRN Reason: GI DISTRESS Stop: 07/06/17 07:25 Carvedilol (Coreg) 12.5 mg PO BID [facility] Stop: 07/06/17 08:59 Last Admin: 05/10/17 10:30 Dose: Not Given Duloxetine HCl (Cymbalta) 120 mg PO DAILY [facility] Stop: 07/06/17 08:59 Last Admin: 05/10/17 10:30 Dose: Not Given Ergocalciferol (Vitamin D) 50,000 iu PO QWEEK [facility] Stop: 07/10/17 07:29 Ferrous Sulfate (Iron) 325 mg PO DAILY [facility] Stop: 07/06/17 08:59 Last Admin: 05/10/17 10:31 Dose: Not Given Fish Oil (Leander 3) 1,000 mg PO DAILY [facility] Stop: 07/06/17 08:59 Last Admin: 05/10/17 10:31 Dose: Not Given Gabapentin (Neurontin) 800 mg PO Q8HR [facility] Stop: 07/06/17 08:54 Last Admin: 05/10/17 13:00 Dose: Not Given Insulin Aspart (Novolog Insulin Sliding Scale) 0 units SUBQ ACHS [facility] PRN Reason: Protocol Stop: 07/08/17 16:29 Last Admin: 05/10/17 12:59 Dose: Not Given Lorazepam (Ativan) 1 mg PO Q4HR PRN; Protocol PRN Reason: Anxiety Stop: 07/06/17 07:25 Last Admin: 05/10/17 00:22 Dose: 1 mg Magnesium Hydroxide (Milk Of Magnesia) 30 ml PO HS PRN PRN Reason: Constipation Stop: 07/06/17 07:25 Mirtazapine (Remeron) 15 mg PO HS [facility] PRN Reason: Protocol Stop: 07/06/17 20:59 Last Admin: 05/09/17 22:26 Dose: 15 mg Pantoprazole Sodium (Protonix) 40 mg PO QDAC [facility] Stop: 07/06/17 07:29 Last Admin: 05/10/17 06:41 Dose: 40 mg Tramadol HCl (Ultram) 50 mg PO Q4H PRN PRN Reason: Pain (Severe) Stop: 07/06/17 07:25 Last Admin: 05/10/17 00:22 Dose: 50 mg Trazodone HCl (Desyrel) 150 mg PO HS [facility] Stop: 07/09/17 20:59 General: No acute distress HEENT: Atraumatic Neck: Supple Cardiovascular: Regular rate, Normal S1 Assessment/Plan - Problem List Patient Problems: All Active Problems Dehydration (Acute) E86.0 Diabetes (Acute) E11.9 Hypokalemia (Acute) E87.6 Hyponatremia (Acute) E87.1 h/o schizophrenia (Acute) history of psychotic disorder (Acute) history of severe depression (Acute) - Plan Plan: cpm Nutritional Asmnt/Malnutr-PDOC - Dietary Evaluation Malnutrition Findings (Please click <Entered> for more info): Nutritional Asmnt/Malnutrition Start: 05/07/17 11: 13 Text: Status: Complete Freq: Document 05/07/17 11:13 ZACH (Rec: 05/07/17 11:18 ZACH ROBERT FN) Nutritional Asmnt/Malnutrition Patient General Information Nutritional Screening Consult Diagnosis ALOC, hypkalemia Pertinent Medical Hx/Surgical Hx DM Subjective Information Pt stated that she had a lack of appetite due to back pain Current Diet Order/ Nutrition Support 2g Ns diet Pertinent Medications maalox, vit D, Fe, MOM, protonix, KCl (40mEq x 1/day), tramadol Pertinent Labs Na 134, K 2.7, Cl97, CO2 31.1, BUN 11, Cr 0.8, Ca 8.1, glucose 230 Nutritional Hx/Data Height 1.68 m Height (Calculated Centimeters) 167.6 Current Weight (lbs) 57.334 kg Weight (Calculated Kilograms) 57.3 Weight (Calculated Grams) 54893.1 Recent Weight Change No Weight Status Approriate GI Symptoms GI Symptoms None Food Allergies No Cultural/Ethnic/Nondenominational Belief Pt denies Usual diet at home Pt states "regular" Skin Integrity/Comment: daniel score 16 Current %PO Good (75-100%) Estimated Nutritional Goals BEE in Kcals: Using Current wt Calories/Kcals/Kg 25-30kcals/kg Kcals Calculated 1425-1710kcals/day Protein: Using Current wt Protein g/kg/kg Protein Calculated 57g/day Fluid: ml 1425-1710ml/day (1ml/kcal) Nutritional Problem 1. Problem Problem altered nutrition related lab values Etiology related to endocrine dysfunction as evidenced by Signs/Symptoms: glucose 211 on admisson Intervention/Recommendation Comments Recommend 2g Na CCHO diet. Expected Outcomes/Goals Expected Outcomes/Goals labs WNL
== END 2017-05-10 17:50 | DRG 640 ==
LOC: ER 21:44 → MSI 05-07 00:10
PROVIDERS: ADMIT Internal Medicine; ATTEND Internal Medicine
DX: E87.6 Hypokalemia (principal); G93.41 Metabolic encephalopathy; E86.0 Dehydration; E41 Nutritional marasmus; E11.42 Type 2 diabetes mellitus with diabetic polyneuropathy; I11.9 Hypertensive heart disease without heart failure; Z68.1 Body mass index [BMI] 19.9 or less, adult; F25.0 Schizoaffective disorder, bipolar type; R13.10 Dysphagia, unspecified; K21.9 Gastro-esophageal reflux disease without esophagitis; M19.90 Unspecified osteoarthritis, unspecified site; M62.81 Muscle weakness (generalized); F29 Unspecified psychosis not due to a substance or known physiological condition; G47.00 Insomnia, unspecified; E55.9 Vitamin D deficiency, unspecified; Z95.0 Presence of cardiac pacemaker
CPT/HCPCS: 36415-UA; 80048-TC; 80053-TC; 80061-TC; 81001-TC; 82948-90; 83036-90; 83735-TC; 84443-TC; 85025-TC; 93005; J1815; J3480; Z7610

== ENCOUNTER 2017-05-10 17:50 | Inpatient (IN) | payer MEDICARE ==
[2017-05-10 20:27] VITALS: BP 103/56
[2017-05-10] MEDS ORDERED: Magnesium Hydroxide (MOM) 30 mL UDC PO PRN (22:16)
[2017-05-10] MEDS ORDERED: Acetaminophen 500 MG TAB PO PRN (22:31)
[2017-05-10] MEDS ORDERED: Maalox 30 mL Cup PO PRN (22:32)
[2017-05-11] MEDS: Pantoprazole 40 mg EC Tab PO SCH (06:33)
[2017-05-11] MEDS: Ferrous Sulfate 325 MG TAB PO SCH (08:25)
[2017-05-11] MEDS: Fish Oil 1,000 MG SGL PO SCH (08:25)
--- NOTE | 2017-05-11 12:32 | Psychosocial Evaluation ---
DATE OF SERVICE: AGE: 61. SEX: Female. CHIEF COMPLAINT: Confusion and forgetfulness. HISTORY OF PRESENT ILLNESS: The patient is a 61-year-old female who was transferred from [facility] unit to [facility] Unit because of confusion and because of forgetfulness. The patient has been also paranoid. The patient thinks that she is living in her mother's home and that she is not living in a [facility]. The patient also has been acting bizarre on the [facility] unit and she thinks that she has no psychiatric problems and she was never been in psychiatric treatment, although the patient has been taking Cymbalta, Remeron, gabapentin and on Seroquel at certain time. She also has been confused. The patient also has been resisting care at times. The patient also was not able to follow staff directions and she was transferred to the psychiatric unit to get her treatment and to get help and also to work on her psych medications. The patient also was having suicidal ideations and was planned to overdose on pills prior to her admission. She also has been withdrawn and interacting minimally with others. The patient also has been guarded and has been confused. She also has been at times getting agitated. PAST PSYCHIATRIC HISTORY: The patient has history of what seems to be schizoaffective disorder versus bipolar disorder. PAST MEDICAL HISTORY: The patient was in [facility] and she has been under Dr. Stroud's care. The patient has history of hypokalemia, diabetes mellitus, hypertension, gastroesophageal reflux disease. SOCIAL HISTORY: The patient lives in a alf. No known alcohol or drug use. ALLERGIES: No known allergies. MENTAL STATUS EXAMINATION: The patient appears slightly older than stated age. Anxious. Depressed mood. Flat affect. Thought processes are mainly goal directed. The patient denies any hallucinations, but she is paranoid and delusional. The patient currently denies thoughts of suicide or homicide. The patient is alert, but she is confused and seems to be disoriented to time, place, person and situation. Impaired immediate, recent and remote memories. Poor insight and poor judgment. ASSESSMENT: PRIMARY DIAGNOSIS: Schizoaffective disorder, bipolar type, with psychotic features. SECONDARY DIAGNOSIS: Dementia, moderate to severe. TREATMENT PLAN: We will monitor the patient's behavior and condition closely. We will continue adjusting psychotropic medications. Also, we will work on placement issue and on discharge plans. ESTIMATED LENGTH OF STAY: 7-10 days. PATIENT'S STRENGTHS AND WEAKNESSES: The patient's strength is not clear at this time except she seems to be in relatively fair health. Weaknesses: Her psychosis and ineffective coping. AFTER DISCHARGE PLAN: Outpatient treatment and followup will continue as an outpatient. CRITERIA FOR DISCHARGE: The patient will not be psychotic and will stabilize psychotropic medications and will establish outpatient treatment plans. [facility]# [id number]
--- NOTE | 2017-05-11 12:32 | Psychosocial Evaluation ---
DATE OF SERVICE: AGE: 61. SEX: Female. CHIEF COMPLAINT: Confusion and forgetfulness. HISTORY OF PRESENT ILLNESS: The patient is a 61-year-old female who was transferred from [facility] unit to [facility] because of confusion and because of forgetfulness. The patient has been also paranoid. The patient thinks that she is living in her mother's home and that she is not living in a [facility]. The patient also has been acting bizarre on the [facility] unit and she thinks that she has no psychiatric problems and she was never been in psychiatric treatment, although the patient has been taking Cymbalta, Remeron, gabapentin and on Seroquel at certain time. She also has been confused. The patient also has been resisting care at times. The patient also was not able to follow staff directions and she was transferred to the psychiatric unit to get her treatment and to get help and also to work on her psych medications. The patient also was having suicidal ideations and was planned to overdose on pills prior to her admission. She also has been withdrawn and interacting minimally with others. The patient also has been guarded and has been confused. She also has been at times getting agitated. PAST PSYCHIATRIC HISTORY: The patient has history of what seems to be schizoaffective disorder versus bipolar disorder. PAST MEDICAL HISTORY: The patient was in [facility] and she has been under Dr. Stroud's care. The patient has history of hypokalemia, diabetes mellitus, hypertension, gastroesophageal reflux disease. SOCIAL HISTORY: The patient lives in a fpc. No known alcohol or drug use. ALLERGIES: No known allergies. MENTAL STATUS EXAMINATION: The patient appears slightly older than stated age. Anxious. Depressed mood. Flat affect. Thought processes are mainly goal directed. The patient denies any hallucinations, but she is paranoid and delusional. The patient currently denies thoughts of suicide or homicide. The patient is alert, but she is confused and seems to be disoriented to time, place, person and situation. Impaired immediate, recent and remote memories. Poor insight and poor judgment. ASSESSMENT: PRIMARY DIAGNOSIS: Schizoaffective disorder, bipolar type, with psychotic features. SECONDARY DIAGNOSIS: Dementia, moderate to severe. TREATMENT PLAN: We will monitor the patient's behavior and condition closely. We will continue adjusting psychotropic medications. Also, we will work on placement issue and on discharge plans. ESTIMATED LENGTH OF STAY: 7-10 days. PATIENT'S STRENGTHS AND WEAKNESSES: The patient's strength is not clear at this time except she seems to be in relatively fair health. Weaknesses: Her psychosis and ineffective coping. AFTER DISCHARGE PLAN: Outpatient treatment and followup will continue as an outpatient. CRITERIA FOR DISCHARGE: The patient will not be psychotic and will stabilize psychotropic medications and will establish outpatient treatment plans. [facility]# [id number]
--- NOTE | 2017-05-11 12:32 | Psychosocial Evaluation ---
DATE OF SERVICE: AGE: 61. SEX: Female. CHIEF COMPLAINT: Confusion and forgetfulness. HISTORY OF PRESENT ILLNESS: The patient is a 61-year-old female who was transferred from [facility] unit to [facility] Unit because of confusion and because of forgetfulness. The patient has been also paranoid. The patient thinks that she is living in her mother's home and that she is not living in a [facility]. The patient also has been acting bizarre on the [facility] unit and she thinks that she has no psychiatric problems and she was never been in psychiatric treatment, although the patient has been taking Cymbalta, Remeron, gabapentin and on Seroquel at certain time. She also has been confused. The patient also has been resisting care at times. The patient also was not able to follow staff directions and she was transferred to the psychiatric unit to get her treatment and to get help and also to work on her psych medications. The patient also was having suicidal ideations and was planned to overdose on pills prior to her admission. She also has been withdrawn and interacting minimally with others. The patient also has been guarded and has been confused. She also has been at times getting agitated. PAST PSYCHIATRIC HISTORY: The patient has history of what seems to be schizoaffective disorder versus bipolar disorder. PAST MEDICAL HISTORY: The patient was in [facility] and she has been under Dr. Stroud's care. The patient has history of hypokalemia, diabetes mellitus, hypertension, gastroesophageal reflux disease. SOCIAL HISTORY: The patient lives in a assisted. No known alcohol or drug use. ALLERGIES: No known allergies. MENTAL STATUS EXAMINATION: The patient appears slightly older than stated age. Anxious. Depressed mood. Flat affect. Thought processes are mainly goal directed. The patient denies any hallucinations, but she is paranoid and delusional. The patient currently denies thoughts of suicide or homicide. The patient is alert, but she is confused and seems to be disoriented to time, place, person and situation. Impaired immediate, recent and remote memories. Poor insight and poor judgment. ASSESSMENT: PRIMARY DIAGNOSIS: Schizoaffective disorder, bipolar type, with psychotic features. SECONDARY DIAGNOSIS: Dementia, moderate to severe. TREATMENT PLAN: We will monitor the patient's behavior and condition closely. We will continue adjusting psychotropic medications. Also, we will work on placement issue and on discharge plans. ESTIMATED LENGTH OF STAY: 7-10 days. PATIENT'S STRENGTHS AND WEAKNESSES: The patient's strength is not clear at this time except she seems to be in relatively fair health. Weaknesses: Her psychosis and ineffective coping. AFTER DISCHARGE PLAN: Outpatient treatment and followup will continue as an outpatient. CRITERIA FOR DISCHARGE: The patient will not be psychotic and will stabilize psychotropic medications and will establish outpatient treatment plans. [facility]# [id number]
[2017-05-11] MEDS: INSULIN ASPART SLIDING SCALE 100 UNITS/ML UNIT SUBQ SCH ×2 (16:40→20:10)
[2017-05-11] MEDS ORDERED: INSULIN ASPART, RECOMBINANT 100 UNITS/ML SUBQ ONE (22:44)
[2017-05-11] MEDS ORDERED: Insulin Detemir 100 units/mL 10mL Vial SUBQ ONE (22:45)
[2017-05-12] MEDS: Pantoprazole 40 mg EC Tab PO SCH (06:30)
[2017-05-12] MEDS: INSULIN ASPART SLIDING SCALE 100 UNITS/ML UNIT SUBQ SCH ×4 (06:30→21:42)
--- NOTE | 2017-05-12 07:10 | History & Physical ---
ADMIT DATE: 05/11/2017 HISTORY OF PRESENT ILLNESS: This is a 61-year-old female patient. She was admitted initially to the medical floor because she has history of diabetes, hypertension, esophageal reflux disease, and the patient has severe hypokalemia. All of them are treated and she has underlying psych disorder and bipolar schizoaffective disorder. She is confused and forgetful. That is the reason why the patient was sent to Geropsych Unit. She has been taking Cymbalta, Remeron, gabapentin, and Seroquel and she is under the care of Dr. Davis. PAST MEDICAL HISTORY: As noted earlier, diabetes, hypertension, GERD, history of hypokalemia, and dementia. PHYSICAL EXAMINATION: HEAD: Normal. ENT: Normal. NECK: Supple, nontender. LUNGS: Clear. CARDIOVASCULAR SYSTEM: S1, S2 heard. ABDOMEN: Soft. Bowel sounds are heard. CENTRAL NERVOUS SYSTEM: Grossly normal. All the lab data was noted and all her medications are noted. FINAL DIAGNOSES: Schizoaffective disorder, confusion, dementia, history of hypertension, history of diabetes, and history of gastroesophageal reflux disease, history of status post hypokalemia. PLAN: The patient is going to be admitted to Geropsych Unit. I will follow the patient along with Dr. Davis for any medical issues that may arise. [facility]# [id number]
[2017-05-12] MEDS: Insulin Detemir 100 units/mL 10mL Vial SUBQ SCH ×2 (08:21→20:30)
[2017-05-12] MEDS: Fish Oil 1,000 MG SGL PO SCH (08:22)
[2017-05-12] MEDS: Ferrous Sulfate 325 MG TAB PO SCH (08:23)
[2017-05-12] MEDS ORDERED: Insulin Detemir 100 units/mL 10mL Vial SUBQ SCH ×2 (09:00)
--- NOTE | 2017-05-12 10:25 | General Progress Note ---
Subjective - Review of Systems Events since last encounter: patient is confused awake , no distress Objective - Results Recent Labs: Laboratory Last Values Glucose 508 mg/dL (70-105) H* 05/11/17 21:40 POC Glucose 214 MG/DL (70 - 105) H 05/12/17 06:19 - Physical Exam Vitals and I&O: Vital Signs Temp 97.4 F 05/12/17 06:33 Pulse 73 05/12/17 08:23 Resp 19 05/12/17 06:33 BP 123/75 05/12/17 08:23 Pulse Ox 97 05/12/17 06:33 Intake & Output 05/11/17 05/12/17 05/12/17 18:59 06:59 18:59 Intake Total 800 120 Balance 800 120 Intake: Oral 800 120 Other: # Voids 3 3 # Bowel Movements 1 Active Medications: Current Medications Acetaminophen (Tylenol) 650 mg PO Q4H PRN PRN Reason: Mild-Moderate Pain or T >101 Stop: 07/09/17 22:29 Acetaminophen (Tylenol Extra Strength) 500 mg PO Q4H PRN PRN Reason: Pain (Moderate) Stop: 07/09/17 22:30 Al Hydrox/Mg Hydrox/Simethicone (Maalox) 30 ml PO Q4HR PRN PRN Reason: GI DISTRESS Stop: 07/09/17 22:31 Aripiprazole (Abilify) 5 mg PO DAILY [facility] PRN Reason: Protocol Stop: 07/10/17 08:59 Last Admin: 05/12/17 08:23 Dose: Not Given Carvedilol (Coreg) 12.5 mg PO BID [facility] Stop: 07/10/17 08:59 Last Admin: 05/12/17 08:23 Dose: Not Given Duloxetine HCl (Cymbalta) 120 mg PO DAILY [facility] PRN Reason: Protocol Stop: 07/10/17 08:59 Last Admin: 05/12/17 08:22 Dose: Not Given Ergocalciferol (Vitamin D) 50,000 iu PO QWED [facility] Stop: 07/09/17 22:14 Last Admin: 05/10/17 22:35 Dose: Not Given Ferrous Sulfate (Iron) 325 mg PO DAILY [facility] Stop: 07/10/17 08:59 Last Admin: 05/12/17 08:23 Dose: Not Given Fish Oil (Kimper 3) 1,000 mg PO DAILY [facility] Stop: 07/10/17 08:59 Last Admin: 05/12/17 08:22 Dose: Not Given Gabapentin (Neurontin) 800 mg PO Q8HR [facility] Stop: 07/10/17 04:59 Last Admin: 05/12/17 05:05 Dose: Not Given Insulin Aspart (Novolog Insulin Sliding Scale) 0 units SUBQ ACHS [facility] PRN Reason: Protocol Stop: 07/10/17 16:29 Last Admin: 05/12/17 06:30 Dose: 4 units Insulin Detemir (Levemir Insulin) 10 units SUBQ BID@0800,2000 [facility] PRN Reason: Protocol Stop: 07/11/17 07:59 Last Admin: 05/12/17 08:21 Dose: Not Given Lorazepam (Ativan) 1 mg PO Q4HR PRN; Protocol PRN Reason: Anxiety Stop: 07/09/17 22:09 Last Admin: 05/11/17 21:14 Dose: 1 mg Magnesium Hydroxide (Milk Of Magnesia) 30 ml PO HS PRN PRN Reason: Constipation Stop: 07/09/17 22:15 Mirtazapine (Remeron) 15 mg PO HS [facility] PRN Reason: Protocol Stop: 07/10/17 20:59 Last Admin: 05/11/17 21:28 Dose: Not Given Pantoprazole Sodium (Protonix) 40 mg PO QDAC [facility] Stop: 07/10/17 07:29 Last Admin: 05/12/17 06:30 Dose: Not Given Tramadol HCl (Ultram) 50 mg PO Q4HR PRN PRN Reason: Pain (Severe) Stop: 07/09/17 22:26 Trazodone HCl (Desyrel) 100 mg PO HS [facility] PRN Reason: Protocol Stop: 07/10/17 20:59 Last Admin: 05/11/17 21:13 Dose: 100 mg General: No acute distress HEENT: Atraumatic, PERRLA Cardiovascular: Regular rate, Normal S1 Lungs: Clear to auscultation Abdomen: Bowel sounds Assessment/Plan - Problem List Patient Problems: All Active Problems Dehydration (Acute) E86.0 Diabetes (Acute) E11.9 Hypokalemia (Acute) E87.6 Hyponatremia (Acute) E87.1 h/o schizophrenia (Acute) history of psychotic disorder (Acute) history of severe depression (Acute) - Plan Plan: as per psych as problems arise
--- NOTE | 2017-05-12 10:25 | General Progress Note ---
Subjective - Review of Systems Events since last encounter: patient is confused awake , no distress Objective - Results Recent Labs: Laboratory Last Values Glucose 508 mg/dL (70-105) H* 05/11/17 21:40 POC Glucose 214 MG/DL (70 - 105) H 05/12/17 06:19 - Physical Exam Vitals and I&O: Vital Signs Temp 97.4 F 05/12/17 06:33 Pulse 73 05/12/17 08:23 Resp 19 05/12/17 06:33 BP 123/75 05/12/17 08:23 Pulse Ox 97 05/12/17 06:33 Intake & Output 05/11/17 05/12/17 05/12/17 18:59 06:59 18:59 Intake Total 800 120 Balance 800 120 Intake: Oral 800 120 Other: # Voids 3 3 # Bowel Movements 1 Active Medications: Current Medications Acetaminophen (Tylenol) 650 mg PO Q4H PRN PRN Reason: Mild-Moderate Pain or T >101 Stop: 07/09/17 22:29 Acetaminophen (Tylenol Extra Strength) 500 mg PO Q4H PRN PRN Reason: Pain (Moderate) Stop: 07/09/17 22:30 Al Hydrox/Mg Hydrox/Simethicone (Maalox) 30 ml PO Q4HR PRN PRN Reason: GI DISTRESS Stop: 07/09/17 22:31 Aripiprazole (Abilify) 5 mg PO DAILY [facility] PRN Reason: Protocol Stop: 07/10/17 08:59 Last Admin: 05/12/17 08:23 Dose: Not Given Carvedilol (Coreg) 12.5 mg PO BID [facility] Stop: 07/10/17 08:59 Last Admin: 05/12/17 08:23 Dose: Not Given Duloxetine HCl (Cymbalta) 120 mg PO DAILY [facility] PRN Reason: Protocol Stop: 07/10/17 08:59 Last Admin: 05/12/17 08:22 Dose: Not Given Ergocalciferol (Vitamin D) 50,000 iu PO QWED [facility] Stop: 07/09/17 22:14 Last Admin: 05/10/17 22:35 Dose: Not Given Ferrous Sulfate (Iron) 325 mg PO DAILY [facility] Stop: 07/10/17 08:59 Last Admin: 05/12/17 08:23 Dose: Not Given Fish Oil ([place] 3) 1,000 mg PO DAILY [facility] Stop: 07/10/17 08:59 Last Admin: 05/12/17 08:22 Dose: Not Given Gabapentin (Neurontin) 800 mg PO Q8HR [facility] Stop: 07/10/17 04:59 Last Admin: 05/12/17 05:05 Dose: Not Given Insulin Aspart (Novolog Insulin Sliding Scale) 0 units SUBQ ACHS [facility] PRN Reason: Protocol Stop: 07/10/17 16:29 Last Admin: 05/12/17 06:30 Dose: 4 units Insulin Detemir (Levemir Insulin) 10 units SUBQ BID@0800,2000 [facility] PRN Reason: Protocol Stop: 07/11/17 07:59 Last Admin: 05/12/17 08:21 Dose: Not Given Lorazepam (Ativan) 1 mg PO Q4HR PRN; Protocol PRN Reason: Anxiety Stop: 07/09/17 22:09 Last Admin: 05/11/17 21:14 Dose: 1 mg Magnesium Hydroxide (Milk Of Magnesia) 30 ml PO HS PRN PRN Reason: Constipation Stop: 07/09/17 22:15 Mirtazapine (Remeron) 15 mg PO HS [facility] PRN Reason: Protocol Stop: 07/10/17 20:59 Last Admin: 05/11/17 21:28 Dose: Not Given Pantoprazole Sodium (Protonix) 40 mg PO QDAC [facility] Stop: 07/10/17 07:29 Last Admin: 05/12/17 06:30 Dose: Not Given Tramadol HCl (Ultram) 50 mg PO Q4HR PRN PRN Reason: Pain (Severe) Stop: 07/09/17 22:26 Trazodone HCl (Desyrel) 100 mg PO HS [facility] PRN Reason: Protocol Stop: 07/10/17 20:59 Last Admin: 05/11/17 21:13 Dose: 100 mg General: No acute distress HEENT: Atraumatic, PERRLA Cardiovascular: Regular rate, Normal S1 Lungs: Clear to auscultation Abdomen: Bowel sounds Assessment/Plan - Problem List Patient Problems: All Active Problems Dehydration (Acute) E86.0 Diabetes (Acute) E11.9 Hypokalemia (Acute) E87.6 Hyponatremia (Acute) E87.1 h/o schizophrenia (Acute) history of psychotic disorder (Acute) history of severe depression (Acute) - Plan Plan: as per psych as problems arise
--- NOTE | 2017-05-12 10:25 | General Progress Note ---
Subjective - Review of Systems Events since last encounter: patient is confused awake , no distress Objective - Results Recent Labs: Laboratory Last Values Glucose 508 mg/dL (70-105) H* 05/11/17 21:40 POC Glucose 214 MG/DL (70 - 105) H 05/12/17 06:19 - Physical Exam Vitals and I&O: Vital Signs Temp 97.4 F 05/12/17 06:33 Pulse 73 05/12/17 08:23 Resp 19 05/12/17 06:33 BP 123/75 05/12/17 08:23 Pulse Ox 97 05/12/17 06:33 Intake & Output 05/11/17 05/12/17 05/12/17 18:59 06:59 18:59 Intake Total 800 120 Balance 800 120 Intake: Oral 800 120 Other: # Voids 3 3 # Bowel Movements 1 Active Medications: Current Medications Acetaminophen (Tylenol) 650 mg PO Q4H PRN PRN Reason: Mild-Moderate Pain or T >101 Stop: 07/09/17 22:29 Acetaminophen (Tylenol Extra Strength) 500 mg PO Q4H PRN PRN Reason: Pain (Moderate) Stop: 07/09/17 22:30 Al Hydrox/Mg Hydrox/Simethicone (Maalox) 30 ml PO Q4HR PRN PRN Reason: GI DISTRESS Stop: 07/09/17 22:31 Aripiprazole (Abilify) 5 mg PO DAILY [facility] PRN Reason: Protocol Stop: 07/10/17 08:59 Last Admin: 05/12/17 08:23 Dose: Not Given Carvedilol (Coreg) 12.5 mg PO BID [facility] Stop: 07/10/17 08:59 Last Admin: 05/12/17 08:23 Dose: Not Given Duloxetine HCl (Cymbalta) 120 mg PO DAILY [facility] PRN Reason: Protocol Stop: 07/10/17 08:59 Last Admin: 05/12/17 08:22 Dose: Not Given Ergocalciferol (Vitamin D) 50,000 iu PO QWED [facility] Stop: 07/09/17 22:14 Last Admin: 05/10/17 22:35 Dose: Not Given Ferrous Sulfate (Iron) 325 mg PO DAILY [facility] Stop: 07/10/17 08:59 Last Admin: 05/12/17 08:23 Dose: Not Given Fish Oil ([place] 3) 1,000 mg PO DAILY [facility] Stop: 07/10/17 08:59 Last Admin: 05/12/17 08:22 Dose: Not Given Gabapentin (Neurontin) 800 mg PO Q8HR [facility] Stop: 07/10/17 04:59 Last Admin: 05/12/17 05:05 Dose: Not Given Insulin Aspart (Novolog Insulin Sliding Scale) 0 units SUBQ ACHS [facility] PRN Reason: Protocol Stop: 07/10/17 16:29 Last Admin: 05/12/17 06:30 Dose: 4 units Insulin Detemir (Levemir Insulin) 10 units SUBQ BID@0800,2000 [facility] PRN Reason: Protocol Stop: 07/11/17 07:59 Last Admin: 05/12/17 08:21 Dose: Not Given Lorazepam (Ativan) 1 mg PO Q4HR PRN; Protocol PRN Reason: Anxiety Stop: 07/09/17 22:09 Last Admin: 05/11/17 21:14 Dose: 1 mg Magnesium Hydroxide (Milk Of Magnesia) 30 ml PO HS PRN PRN Reason: Constipation Stop: 07/09/17 22:15 Mirtazapine (Remeron) 15 mg PO HS [facility] PRN Reason: Protocol Stop: 07/10/17 20:59 Last Admin: 05/11/17 21:28 Dose: Not Given Pantoprazole Sodium (Protonix) 40 mg PO QDAC [facility] Stop: 07/10/17 07:29 Last Admin: 05/12/17 06:30 Dose: Not Given Tramadol HCl (Ultram) 50 mg PO Q4HR PRN PRN Reason: Pain (Severe) Stop: 07/09/17 22:26 Trazodone HCl (Desyrel) 100 mg PO HS [facility] PRN Reason: Protocol Stop: 07/10/17 20:59 Last Admin: 05/11/17 21:13 Dose: 100 mg General: No acute distress HEENT: Atraumatic, PERRLA Cardiovascular: Regular rate, Normal S1 Lungs: Clear to auscultation Abdomen: Bowel sounds Assessment/Plan - Problem List Patient Problems: All Active Problems Dehydration (Acute) E86.0 Diabetes (Acute) E11.9 Hypokalemia (Acute) E87.6 Hyponatremia (Acute) E87.1 h/o schizophrenia (Acute) history of psychotic disorder (Acute) history of severe depression (Acute) - Plan Plan: as per psych as problems arise
[2017-05-12] MEDS ORDERED: Insulin Detemir 100 units/mL 10mL Vial SUBQ ONE (22:45)
--- NOTE | 2017-05-12 23:53 | Progress Notes ---
DATE: 05/12/2017 SUBJECTIVE: Chart reviewed and the patient interviewed. Also, discussed the patient's condition with the staff and reviewed records and labs. The patient continued to be delusional and she is still confused. The patient also still does not know where she is at and she is still having irritability and mood swings. She also is still paranoid and is still suspicious. Otherwise, the patient is compliant with taking her medications with no side effects of medications. ASSESSMENT: The patient is still psychotic. TREATMENT PLAN: We will continue to monitor her behavior and her condition closely. Also, continue to work on her psychosis and adjusting psychotropic medications and we will continue to follow up. JOB# [id number]
[2017-05-13] MEDS: INSULIN ASPART SLIDING SCALE 100 UNITS/ML UNIT SUBQ SCH ×4 (06:38→20:30)
[2017-05-13] MEDS: Pantoprazole 40 mg EC Tab PO SCH (06:54)
[2017-05-13] MEDS: Insulin Detemir 100 units/mL 10mL Vial SUBQ SCH ×2 (09:13→20:30)
[2017-05-13] MEDS: Ferrous Sulfate 325 MG TAB PO SCH (09:36)
[2017-05-13] MEDS: Fish Oil 1,000 MG SGL PO SCH (09:36)
--- NOTE | 2017-05-14 03:09 | Progress Notes ---
DATE: 05/13/2017 SUBJECTIVE: Chart reviewed and the patient interviewed. Also, discussed the patient's condition with the staff and reviewed records and labs. The patient continued to be extremely irritable and extremely agitated. The patient also is manipulative and she is having difficulty following any of staff directions. The patient has been going into different patients' rooms, stealing their foods. She is also refusing to take her insulin and refusing care of the patients. She is also suspicious and she is still extremely paranoid. She is also mumbling and talking to herself. ASSESSMENT: The patient is still paranoid and can be dangerous to self and others. TREATMENT PLAN: Continue monitoring her behavior and her condition closely. Also, continue adjusting psychotropic medications. If the patient continued to exhibit same behavior, plan is to increase Abilify and we will continue to follow up closely. JOB# [id number]
[2017-05-14] MEDS: INSULIN ASPART SLIDING SCALE 100 UNITS/ML UNIT SUBQ SCH ×4 (06:37→20:52)
[2017-05-14] MEDS: Pantoprazole 40 mg EC Tab PO SCH (06:39)
[2017-05-14] MEDS: Ferrous Sulfate 325 MG TAB PO SCH (09:26)
[2017-05-14] MEDS: Fish Oil 1,000 MG SGL PO SCH (09:26)
[2017-05-14] MEDS: Insulin Detemir 100 units/mL 10mL Vial SUBQ SCH ×2 (09:41→20:51)
--- NOTE | 2017-05-14 20:06 | Progress Notes ---
DATE: SUBJECTIVE: The patient was seen in her room, lying in the bed. The patient is a poor historian due to medical condition. The patient appears to be guarded this time. Otherwise, the patient appeared to be comfortable, in no acute distress. OBJECTIVE: VITAL SIGNS: Blood pressure 98.1, heart rate is 79, blood pressure 126/66, respirations 17, 98% on room air. HEENT: Head is atraumatic and normocephalic. Eyes: Bilateral conjunctivae are clear. Bilateral pupils are equally round and reactive. NECK: Supple. No JVD. CARDIOVASCULAR: S1 and S2, without murmur. PULMONARY: Clear to auscultation. GASTROINTESTINAL: Soft and nontender without guarding. Positive bowel sounds. MUSCULOSKELETAL: No clubbing, no cyanosis noted. ASSESSMENT: 1. Hypertension. 2. Diabetes mellitus. 3. Gastroesophageal reflux disease. 4. Dementia. 5. Osteoarthritis. PLAN: We will keep the patient inpatient in Geropsych Unit. We will follow up with a psychiatrist to monitor the patient's condition and behavior. Treatment and transfer discussed with the patient's nurses, treatment and transfer were discussed with Dr. Stroud. JOB# [id number]
--- NOTE | 2017-05-14 21:46 | Progress Notes ---
DATE: SUBJECTIVE: The patient seen, chart reviewed, discussed with staff. The patient is here because of confusion, forgetfulness, paranoia, unable to be cared for at a lower level of care, refusing interview, difficulty with taking medications, needing a lot of redirection. The patient is currently under the care of Dr. Crawford. Dr. Crawford noting that the patient with ongoing behavioral disturbances, irritability, agitation, stealing food from other people, paranoid, mumbling to self. ASSESSMENT: The patient remains paranoid, still with behavioral disturbances as noted. PLAN: We will continue to monitor. Continue medications at current dose. No side effects. Medications were reviewed. JOB# [id number]
[2017-05-15] MEDS: INSULIN ASPART SLIDING SCALE 100 UNITS/ML UNIT SUBQ SCH ×4 (06:53→20:01)
[2017-05-15] MEDS: Pantoprazole 40 mg EC Tab PO SCH (06:54)
[2017-05-15] MEDS: Insulin Detemir 100 units/mL 10mL Vial SUBQ SCH ×2 (08:23→20:55)
[2017-05-15] MEDS: Ferrous Sulfate 325 MG TAB PO SCH (08:26)
[2017-05-15] MEDS: Fish Oil 1,000 MG SGL PO SCH (08:26)
--- NOTE | 2017-05-15 10:08 | Progress Notes ---
DATE: SUBJECTIVE: The patient seen, chart reviewed, discussed with staff. The patient in the hospital due to confusion and forgetfulness, paranoia, believed that she was living with her mother. She remains very confused, tried to hit a staff and a roommate. The patient is very selective with medications. On [id number], refusing to speak with me sleeping, arousable, but does not want to talk to me at all. Medications were noted. ASSESSMENT: The patient remains symptomatic, still with ongoing behaviors, confused, trying to hit staff, trying to hit roommate, seems suspicious, easily agitated. PLAN: Continue to monitor, given ongoing symptoms, he is not safe for discharge. We will encourage better med compliance. [facility]# [id number]
--- NOTE | 2017-05-15 10:08 | Progress Notes ---
DATE: SUBJECTIVE: The patient seen, chart reviewed, discussed with staff. The patient in the hospital due to confusion and forgetfulness, paranoia, believed that she was living with her mother. She remains very confused, tried to hit a staff and a roommate. The patient is very selective with medications. On [id number], refusing to speak with me sleeping, arousable, but does not want to talk to me at all. Medications were noted. ASSESSMENT: The patient remains symptomatic, still with ongoing behaviors, confused, trying to hit staff, trying to hit roommate, seems suspicious, easily agitated. PLAN: Continue to monitor, given ongoing symptoms, he is not safe for discharge. We will encourage better med compliance. [facility]# [id number]
--- NOTE | 2017-05-15 10:08 | Progress Notes ---
DATE: SUBJECTIVE: The patient seen, chart reviewed, discussed with staff. The patient in the hospital due to confusion and forgetfulness, paranoia, believed that she was living with her mother. She remains very confused, tried to hit a staff and a roommate. The patient is very selective with medications. On [id number], refusing to speak with me sleeping, arousable, but does not want to talk to me at all. Medications were noted. ASSESSMENT: The patient remains symptomatic, still with ongoing behaviors, confused, trying to hit staff, trying to hit roommate, seems suspicious, easily agitated. PLAN: Continue to monitor, given ongoing symptoms, he is not safe for discharge. We will encourage better med compliance. [facility]# [id number]
--- NOTE | 2017-05-15 10:12 | General Progress Note ---
Subjective - Review of Systems Events since last encounter: patient awake confused, irritable Objective - Results Recent Labs: Laboratory Last Values Glucose 508 mg/dL (70-105) H* 05/11/17 21:40 POC Glucose 137 MG/DL (70 - 105) H 05/15/17 08:08 - Physical Exam Vitals and I&O: Vital Signs Temp 97.7 F 05/15/17 06:20 Pulse 62 05/15/17 08:25 Resp 20 05/15/17 06:20 BP 148/84 05/15/17 08:25 Pulse Ox 100 05/15/17 06:20 Intake & Output 05/14/17 05/15/17 05/15/17 18:59 06:59 18:59 Intake Total 1000 Balance 1000 Intake: Oral 1000 Other: # Voids 4 # Bowel Movements 1 Active Medications: Current Medications Acetaminophen (Tylenol) 650 mg PO Q4H PRN PRN Reason: Mild-Moderate Pain or T >101 Stop: 07/09/17 22:29 Acetaminophen (Tylenol Extra Strength) 500 mg PO Q4H PRN PRN Reason: Pain (Moderate) Stop: 07/09/17 22:30 Al Hydrox/Mg Hydrox/Simethicone (Maalox) 30 ml PO Q4HR PRN PRN Reason: GI DISTRESS Stop: 07/09/17 22:31 Aripiprazole (Abilify) 5 mg PO DAILY [facility] PRN Reason: Protocol Stop: 07/10/17 08:59 Last Admin: 05/15/17 08:23 Dose: Not Given Carvedilol (Coreg) 12.5 mg PO BID [facility] Stop: 07/10/17 08:59 Last Admin: 05/15/17 08:25 Dose: Not Given Duloxetine HCl (Cymbalta) 120 mg PO DAILY [facility] PRN Reason: Protocol Stop: 07/10/17 08:59 Last Admin: 05/15/17 08:27 Dose: Not Given Ergocalciferol (Vitamin D) 50,000 iu PO QWED [facility] Stop: 07/09/17 22:14 Last Admin: 05/10/17 22:35 Dose: Not Given Ferrous Sulfate (Iron) 325 mg PO DAILY [facility] Stop: 07/10/17 08:59 Last Admin: 05/15/17 08:26 Dose: Not Given Fish Oil ([place] 3) 1,000 mg PO DAILY [facility] Stop: 07/10/17 08:59 Last Admin: 05/15/17 08:26 Dose: Not Given Gabapentin (Neurontin) 800 mg PO Q8HR [facility] Stop: 07/10/17 04:59 Last Admin: 05/15/17 05:00 Dose: Not Given Insulin Aspart (Novolog Insulin Sliding Scale) 0 units SUBQ ACHS [facility] PRN Reason: Protocol Stop: 07/10/17 16:29 Last Admin: 05/15/17 06:53 Dose: Not Given Insulin Detemir (Levemir Insulin) 10 units SUBQ BID@0800,2000 [facility] PRN Reason: Protocol Stop: 07/11/17 07:59 Last Admin: 05/15/17 08:23 Dose: Not Given Lorazepam (Ativan) 1 mg PO Q4HR PRN; Protocol PRN Reason: Anxiety Stop: 07/09/17 22:09 Last Admin: 05/11/17 21:14 Dose: 1 mg Magnesium Hydroxide (Milk Of Magnesia) 30 ml PO HS PRN PRN Reason: Constipation Stop: 07/09/17 22:15 Mirtazapine (Remeron) 15 mg PO HS [facility] PRN Reason: Protocol Stop: 07/10/17 20:59 Last Admin: 05/14/17 20:36 Dose: Not Given Pantoprazole Sodium (Protonix) 40 mg PO QDAC [facility] Stop: 07/10/17 07:29 Last Admin: 05/15/17 06:54 Dose: Not Given Tramadol HCl (Ultram) 50 mg PO Q4HR PRN PRN Reason: Pain (Severe) Stop: 07/09/17 22:26 Trazodone HCl (Desyrel) 100 mg PO HS [facility] PRN Reason: Protocol Stop: 07/10/17 20:59 Last Admin: 05/14/17 20:36 Dose: 100 mg General: No acute distress HEENT: Atraumatic, PERRLA Cardiovascular: Regular rate, Normal S1 Lungs: Clear to auscultation Abdomen: Bowel sounds Assessment/Plan - Problem List Patient Problems: All Active Problems Dehydration (Acute) E86.0 Diabetes (Acute) E11.9 Hypokalemia (Acute) E87.6 Hyponatremia (Acute) E87.1 h/o schizophrenia (Acute) history of psychotic disorder (Acute) history of severe depression (Acute) - Plan Plan: as per psych as problems arise Nutritional Asmnt/Malnutr-PDOC - Dietary Evaluation Malnutrition Findings (Please click <Entered> for more info): Nutritional Asmnt/Malnutrition Start: 05/12/17 10: 51 Text: Status: Complete Freq: Document 05/12/17 10:51 SEFERINO (Rec: 05/12/17 11:17 [email or web address]) Nutritional Asmnt/Malnutrition Patient General Information Nutritional Screening Moderate Risk Screening Diagnosis Schizoaffective disorder bipolar type with psychotic features Pertinent Medical Hx/Surgical Hx DM, HTN, esophageal reflux disease, severe hypokalemia, dementia Subjective Information 61 year old female, transfered from [facility]. Pt was soundly asleep during visit, health underwriter visited twice attempted to wake pt, unsuccessful. Limited physical assessment, no severe muslce fat wasting noted. Avg 67% of meals since adm, meeting 83% of lower end kcal needs. Per [facility] staff, pt was requesting for snacks and ice cream. Few teeth missing. Current Diet Order/ Nutrition Support Low sodium, CCHO Pertinent Medications Vitamin D, Iron, [place] 3, Novolog, Levemir, MOM, Remeron , Protonix Pertinent Labs 05/11: glucose 508H Nutritional Hx/Data Height 1.68 m Height (Calculated Centimeters) 167.6 Current Weight (lbs) 55.474 kg Weight (Calculated Kilograms) 55.5 Weight (Calculated Grams) 52315.3 [place] Body Weight 130 Weight Status Approriate GI Symptoms Food Allergies No Skin Integrity/Comment: Carlos 20. Skin intact. Current %PO Fair (50-74%) Estimated Nutritional Goals BEE in Kcals: Using Current wt Calories/Kcals/Kg CBW 122.3lb/55.6kg Kcals Calculated 1390-1668kcal (25-30kcla/kg) Protein: Using Current wt Protein Calculated 56g (1g/kg) Fluid: ml 1390-1668ml (1ml/kcal) Nutritional Problem 1. Problem Problem Altered nutrition related laboratory values related to Etiology DM aeb Signs/Symptoms: glucose 508 Intervention/Recommendation Comments 1. Continue with current diet order. Clarify "CCHO" as " [id number]." Avg PO intake is inadequate, meeting 83% lwoer end kcal needs. 2. Provide nutrition edu DM as able, pt was soundly asleep during visit. 3. Monitor glucose, adjust insulin, glucose 508. Expected Outcomes/Goals Expected Outcomes/Goals 1. PO intake continue to meet at least 75% of estimated nutritinoal needs.
--- NOTE | 2017-05-15 10:12 | General Progress Note ---
Subjective - Review of Systems Events since last encounter: patient awake confused, irritable Objective - Results Recent Labs: Laboratory Last Values Glucose 508 mg/dL (70-105) H* 05/11/17 21:40 POC Glucose 137 MG/DL (70 - 105) H 05/15/17 08:08 - Physical Exam Vitals and I&O: Vital Signs Temp 97.7 F 05/15/17 06:20 Pulse 62 05/15/17 08:25 Resp 20 05/15/17 06:20 BP 148/84 05/15/17 08:25 Pulse Ox 100 05/15/17 06:20 Intake & Output 05/14/17 05/15/17 05/15/17 18:59 06:59 18:59 Intake Total 1000 Balance 1000 Intake: Oral 1000 Other: # Voids 4 # Bowel Movements 1 Active Medications: Current Medications Acetaminophen (Tylenol) 650 mg PO Q4H PRN PRN Reason: Mild-Moderate Pain or T >101 Stop: 07/09/17 22:29 Acetaminophen (Tylenol Extra Strength) 500 mg PO Q4H PRN PRN Reason: Pain (Moderate) Stop: 07/09/17 22:30 Al Hydrox/Mg Hydrox/Simethicone (Maalox) 30 ml PO Q4HR PRN PRN Reason: GI DISTRESS Stop: 07/09/17 22:31 Aripiprazole (Abilify) 5 mg PO DAILY [facility] PRN Reason: Protocol Stop: 07/10/17 08:59 Last Admin: 05/15/17 08:23 Dose: Not Given Carvedilol (Coreg) 12.5 mg PO BID [facility] Stop: 07/10/17 08:59 Last Admin: 05/15/17 08:25 Dose: Not Given Duloxetine HCl (Cymbalta) 120 mg PO DAILY [facility] PRN Reason: Protocol Stop: 07/10/17 08:59 Last Admin: 05/15/17 08:27 Dose: Not Given Ergocalciferol (Vitamin D) 50,000 iu PO QWED [facility] Stop: 07/09/17 22:14 Last Admin: 05/10/17 22:35 Dose: Not Given Ferrous Sulfate (Iron) 325 mg PO DAILY [facility] Stop: 07/10/17 08:59 Last Admin: 05/15/17 08:26 Dose: Not Given Fish Oil ([place] 3) 1,000 mg PO DAILY [facility] Stop: 07/10/17 08:59 Last Admin: 05/15/17 08:26 Dose: Not Given Gabapentin (Neurontin) 800 mg PO Q8HR [facility] Stop: 07/10/17 04:59 Last Admin: 05/15/17 05:00 Dose: Not Given Insulin Aspart (Novolog Insulin Sliding Scale) 0 units SUBQ ACHS [facility] PRN Reason: Protocol Stop: 07/10/17 16:29 Last Admin: 05/15/17 06:53 Dose: Not Given Insulin Detemir (Levemir Insulin) 10 units SUBQ BID@0800,2000 [facility] PRN Reason: Protocol Stop: 07/11/17 07:59 Last Admin: 05/15/17 08:23 Dose: Not Given Lorazepam (Ativan) 1 mg PO Q4HR PRN; Protocol PRN Reason: Anxiety Stop: 07/09/17 22:09 Last Admin: 05/11/17 21:14 Dose: 1 mg Magnesium Hydroxide (Milk Of Magnesia) 30 ml PO HS PRN PRN Reason: Constipation Stop: 07/09/17 22:15 Mirtazapine (Remeron) 15 mg PO HS [facility] PRN Reason: Protocol Stop: 07/10/17 20:59 Last Admin: 05/14/17 20:36 Dose: Not Given Pantoprazole Sodium (Protonix) 40 mg PO QDAC [facility] Stop: 07/10/17 07:29 Last Admin: 05/15/17 06:54 Dose: Not Given Tramadol HCl (Ultram) 50 mg PO Q4HR PRN PRN Reason: Pain (Severe) Stop: 07/09/17 22:26 Trazodone HCl (Desyrel) 100 mg PO HS [facility] PRN Reason: Protocol Stop: 07/10/17 20:59 Last Admin: 05/14/17 20:36 Dose: 100 mg General: No acute distress HEENT: Atraumatic, PERRLA Cardiovascular: Regular rate, Normal S1 Lungs: Clear to auscultation Abdomen: Bowel sounds Assessment/Plan - Problem List Patient Problems: All Active Problems Dehydration (Acute) E86.0 Diabetes (Acute) E11.9 Hypokalemia (Acute) E87.6 Hyponatremia (Acute) E87.1 h/o schizophrenia (Acute) history of psychotic disorder (Acute) history of severe depression (Acute) - Plan Plan: as per psych as problems arise Nutritional Asmnt/Malnutr-PDOC - Dietary Evaluation Malnutrition Findings (Please click <Entered> for more info): Nutritional Asmnt/Malnutrition Start: 05/12/17 10: 51 Text: Status: Complete Freq: Document 05/12/17 10:51 SEFERINO (Rec: 05/12/17 11:17 [email or web address]) Nutritional Asmnt/Malnutrition Patient General Information Nutritional Screening Moderate Risk Screening Diagnosis Schizoaffective disorder bipolar type with psychotic features Pertinent Medical Hx/Surgical Hx DM, HTN, esophageal reflux disease, severe hypokalemia, dementia Subjective Information 61 year old female, transfered from [facility]. Pt was soundly asleep during visit, magnetic tape typewriter operator visited twice attempted to wake pt, unsuccessful. Limited physical assessment, no severe muslce fat wasting noted. Avg 67% of meals since adm, meeting 83% of lower end kcal needs. Per [facility] staff, pt was requesting for snacks and ice cream. Few teeth missing. Current Diet Order/ Nutrition Support Low sodium, CCHO Pertinent Medications Vitamin D, Iron, [place] 3, Novolog, Levemir, MOM, Remeron , Protonix Pertinent Labs 05/11: glucose 508H Nutritional Hx/Data Height 1.68 m Height (Calculated Centimeters) 167.6 Current Weight (lbs) 55.474 kg Weight (Calculated Kilograms) 55.5 Weight (Calculated Grams) 03168.3 [place] Body Weight 130 Weight Status Approriate GI Symptoms Food Allergies No Skin Integrity/Comment: Carlos 20. Skin intact. Current %PO Fair (50-74%) Estimated Nutritional Goals BEE in Kcals: Using Current wt Calories/Kcals/Kg CBW 122.3lb/55.6kg Kcals Calculated 1390-1668kcal (25-30kcla/kg) Protein: Using Current wt Protein Calculated 56g (1g/kg) Fluid: ml 1390-1668ml (1ml/kcal) Nutritional Problem 1. Problem Problem Altered nutrition related laboratory values related to Etiology DM aeb Signs/Symptoms: glucose 508 Intervention/Recommendation Comments 1. Continue with current diet order. Clarify "CCHO" as " [id number]." Avg PO intake is inadequate, meeting 83% lwoer end kcal needs. 2. Provide nutrition edu DM as able, pt was soundly asleep during visit. 3. Monitor glucose, adjust insulin, glucose 508. Expected Outcomes/Goals Expected Outcomes/Goals 1. PO intake continue to meet at least 75% of estimated nutritinoal needs.
--- NOTE | 2017-05-15 10:12 | General Progress Note ---
Subjective - Review of Systems Events since last encounter: patient awake confused, irritable Objective - Results Recent Labs: Laboratory Last Values Glucose 508 mg/dL (70-105) H* 05/11/17 21:40 POC Glucose 137 MG/DL (70 - 105) H 05/15/17 08:08 - Physical Exam Vitals and I&O: Vital Signs Temp 97.7 F 05/15/17 06:20 Pulse 62 05/15/17 08:25 Resp 20 05/15/17 06:20 BP 148/84 05/15/17 08:25 Pulse Ox 100 05/15/17 06:20 Intake & Output 05/14/17 05/15/17 05/15/17 18:59 06:59 18:59 Intake Total 1000 Balance 1000 Intake: Oral 1000 Other: # Voids 4 # Bowel Movements 1 Active Medications: Current Medications Acetaminophen (Tylenol) 650 mg PO Q4H PRN PRN Reason: Mild-Moderate Pain or T >101 Stop: 07/09/17 22:29 Acetaminophen (Tylenol Extra Strength) 500 mg PO Q4H PRN PRN Reason: Pain (Moderate) Stop: 07/09/17 22:30 Al Hydrox/Mg Hydrox/Simethicone (Maalox) 30 ml PO Q4HR PRN PRN Reason: GI DISTRESS Stop: 07/09/17 22:31 Aripiprazole (Abilify) 5 mg PO DAILY [facility] PRN Reason: Protocol Stop: 07/10/17 08:59 Last Admin: 05/15/17 08:23 Dose: Not Given Carvedilol (Coreg) 12.5 mg PO BID [facility] Stop: 07/10/17 08:59 Last Admin: 05/15/17 08:25 Dose: Not Given Duloxetine HCl (Cymbalta) 120 mg PO DAILY [facility] PRN Reason: Protocol Stop: 07/10/17 08:59 Last Admin: 05/15/17 08:27 Dose: Not Given Ergocalciferol (Vitamin D) 50,000 iu PO QWED [facility] Stop: 07/09/17 22:14 Last Admin: 05/10/17 22:35 Dose: Not Given Ferrous Sulfate (Iron) 325 mg PO DAILY [facility] Stop: 07/10/17 08:59 Last Admin: 05/15/17 08:26 Dose: Not Given Fish Oil ([place] 3) 1,000 mg PO DAILY [facility] Stop: 07/10/17 08:59 Last Admin: 05/15/17 08:26 Dose: Not Given Gabapentin (Neurontin) 800 mg PO Q8HR [facility] Stop: 07/10/17 04:59 Last Admin: 05/15/17 05:00 Dose: Not Given Insulin Aspart (Novolog Insulin Sliding Scale) 0 units SUBQ ACHS [facility] PRN Reason: Protocol Stop: 07/10/17 16:29 Last Admin: 05/15/17 06:53 Dose: Not Given Insulin Detemir (Levemir Insulin) 10 units SUBQ BID@0800,2000 [facility] PRN Reason: Protocol Stop: 07/11/17 07:59 Last Admin: 05/15/17 08:23 Dose: Not Given Lorazepam (Ativan) 1 mg PO Q4HR PRN; Protocol PRN Reason: Anxiety Stop: 07/09/17 22:09 Last Admin: 05/11/17 21:14 Dose: 1 mg Magnesium Hydroxide (Milk Of Magnesia) 30 ml PO HS PRN PRN Reason: Constipation Stop: 07/09/17 22:15 Mirtazapine (Remeron) 15 mg PO HS [facility] PRN Reason: Protocol Stop: 07/10/17 20:59 Last Admin: 05/14/17 20:36 Dose: Not Given Pantoprazole Sodium (Protonix) 40 mg PO QDAC [facility] Stop: 07/10/17 07:29 Last Admin: 05/15/17 06:54 Dose: Not Given Tramadol HCl (Ultram) 50 mg PO Q4HR PRN PRN Reason: Pain (Severe) Stop: 07/09/17 22:26 Trazodone HCl (Desyrel) 100 mg PO HS [facility] PRN Reason: Protocol Stop: 07/10/17 20:59 Last Admin: 05/14/17 20:36 Dose: 100 mg General: No acute distress HEENT: Atraumatic, PERRLA Cardiovascular: Regular rate, Normal S1 Lungs: Clear to auscultation Abdomen: Bowel sounds Assessment/Plan - Problem List Patient Problems: All Active Problems Dehydration (Acute) E86.0 Diabetes (Acute) E11.9 Hypokalemia (Acute) E87.6 Hyponatremia (Acute) E87.1 h/o schizophrenia (Acute) history of psychotic disorder (Acute) history of severe depression (Acute) - Plan Plan: as per psych as problems arise Nutritional Asmnt/Malnutr-PDOC - Dietary Evaluation Malnutrition Findings (Please click <Entered> for more info): Nutritional Asmnt/Malnutrition Start: 05/12/17 10: 51 Text: Status: Complete Freq: Document 05/12/17 10:51 SEFERINO (Rec: 05/12/17 11:17 [email or web address] [email or web address]-FN) Nutritional Asmnt/Malnutrition Patient General Information Nutritional Screening Moderate Risk Screening Diagnosis Schizoaffective disorder bipolar type with psychotic features Pertinent Medical Hx/Surgical Hx DM, HTN, esophageal reflux disease, severe hypokalemia, dementia Subjective Information 61 year old female, transfered from [facility] [place] [place]. Pt was soundly asleep during visit, press writer visited twice attempted to wake pt, unsuccessful. Limited physical assessment, no severe muslce fat wasting noted. Avg 67% of meals since adm, meeting 83% of lower end kcal needs. Per [facility] staff, pt was requesting for snacks and ice cream. Few teeth missing. Current Diet Order/ Nutrition Support Low sodium, CCHO Pertinent Medications Vitamin D, Iron, [place] 3, Novolog, Levemir, MOM, Remeron , Protonix Pertinent Labs 05/11: glucose 508H Nutritional Hx/Data Height 1.68 m Height (Calculated Centimeters) 167.6 Current Weight (lbs) 55.474 kg Weight (Calculated Kilograms) 55.5 Weight (Calculated Grams) 54511.3 [place] Body Weight 130 Weight Status Approriate GI Symptoms Food Allergies No Skin Integrity/Comment: Carlos 20. Skin intact. Current %PO Fair (50-74%) Estimated Nutritional Goals BEE in Kcals: Using Current wt Calories/Kcals/Kg CBW 122.3lb/55.6kg Kcals Calculated 1390-1668kcal (25-30kcla/kg) Protein: Using Current wt Protein Calculated 56g (1g/kg) Fluid: ml 1390-1668ml (1ml/kcal) Nutritional Problem 1. Problem Problem Altered nutrition related laboratory values related to Etiology DM aeb Signs/Symptoms: glucose 508 Intervention/Recommendation Comments 1. Continue with current diet order. Clarify "CCHO" as " [id number]." Avg PO intake is inadequate, meeting 83% lwoer end kcal needs. 2. Provide nutrition edu DM as able, pt was soundly asleep during visit. 3. Monitor glucose, adjust insulin, glucose 508. Expected Outcomes/Goals Expected Outcomes/Goals 1. PO intake continue to meet at least 75% of estimated nutritinoal needs.
[2017-05-15] MEDS ORDERED: Insulin Detemir 100 units/mL 10mL Vial SUBQ SCH (20:00)
[2017-05-16] MEDS: INSULIN ASPART SLIDING SCALE 100 UNITS/ML UNIT SUBQ SCH ×4 (06:35→20:30)
[2017-05-16] MEDS: Pantoprazole 40 mg EC Tab PO SCH (06:41)
[2017-05-16 08:20] LABS: ALB/GLOB RATIO 1.1 (1.0-1.8); ALBUMIN 2.5 gm/dL (3.7-5.3); ALKALINE PHOSPHATASE 73 U/L (34-104); ANION GAP 6.7 (7.0-16.0); BILIRUBIN,TOTAL 0.3 mg/dL (0.3-1.0); BUN - UREA NITROGEN 13 mg/dL (7-25); CALCIUM SERUM 8.2 mg/dL (8.6-10.3); CARBON DIOXIDE 27.8 mEq/L (21.0-31.0); CHLORIDE 104 mEq/L (98-107); CREATININE - SERUM 0.8 mg/dL (0.6-1.2); GFR AFRICAN-AMERICAN > 60.0 ml/min (>90); GFR NON AFRICAN-AMERICAN > 60.0 ml/min; GLUCOSE 90 mg/dL (70-105); POTASSIUM SERUM 3.5 mEq/L (3.5-5.1); SGOT 94 U/L (13-39); SGPT/ALT 55 U/L (7-52); SODIUM SERUM 135 mEq/L (136-145); TOTAL PROTEIN,SERUM 4.7 gm/dL (6.0-8.3)
[2017-05-16] MEDS: Insulin Detemir 100 units/mL 10mL Vial SUBQ SCH ×2 (09:49→20:24)
[2017-05-16] MEDS: Ferrous Sulfate 325 MG TAB PO SCH (09:50)
[2017-05-16] MEDS: Fish Oil 1,000 MG SGL PO SCH (09:50)
--- NOTE | 2017-05-16 21:54 | Internal Medicine Prog Note ---
Internal Medicine Subjective - Subjective Service Date: 05/16/17 Patient seen and examined:: with staff Patient is:: awake Per staff patient has:: no adverse event, tolerating meds Internal Medicine Objective - Results Result Diagrams: 05/16/17 07:30 Recent Labs: Laboratory Last Values Sodium 135 mEq/L (136-145) L 05/16/17 07:30 Potassium 3.5 mEq/L (3.5-5.1) 05/16/17 07:30 Chloride 104 mEq/L (98-107) 05/16/17 07:30 Carbon Dioxide 27.8 mEq/L (21.0-31.0) 05/16/17 07:30 Anion Gap 6.7 (7.0-16.0) L 05/16/17 07:30 BUN 13 mg/dL (7-25) 05/16/17 07:30 Creatinine 0.8 mg/dL (0.6-1.2) 05/16/17 07:30 Est GFR ( Amer) > 60.0 ml/min (>90) 05/16/17 07:30 Est GFR (Non-Af Amer) > 60.0 ml/min 05/16/17 07:30 BUN/Creatinine Ratio 16.3 05/16/17 07:30 Glucose 90 mg/dL (70-105) 05/16/17 07:30 POC Glucose 259 MG/DL (70 - 105) H 05/16/17 20:02 Calcium 8.2 mg/dL (8.6-10.3) L 05/16/17 07:30 Total Bilirubin 0.3 mg/dL (0.3-1.0) 05/16/17 07:30 AST 94 U/L (13-39) H 05/16/17 07:30 ALT 55 U/L (7-52) H 05/16/17 07:30 Alkaline Phosphatase 73 U/L (34-104) 05/16/17 07:30 Total Protein 4.7 gm/dL (6.0-8.3) L 05/16/17 07:30 Albumin 2.5 gm/dL (3.7-5.3) L 05/16/17 07:30 Globulin 2.2 gm/dL 05/16/17 07:30 Albumin/Globulin Ratio 1.1 (1.0-1.8) 05/16/17 07:30 - Physical Exam Vitals and I&O: Vital Signs Temp 98.1 F 05/16/17 20:33 Pulse 72 05/16/17 20:33 Resp 19 05/16/17 20:33 BP 133/89 05/16/17 20:33 Pulse Ox 98 05/16/17 20:33 Intake & Output 05/16/17 05/16/17 05/17/17 06:59 18:59 06:59 Intake Total 120 1440 Balance 120 1440 Intake: Oral 120 1440 Other: # Voids 2 1 # Bowel Movements 0 1 Active Medications: Current Medications Acetaminophen (Tylenol) 650 mg PO Q4H PRN PRN Reason: Mild-Moderate Pain or T >101 Stop: 07/09/17 22:29 Acetaminophen (Tylenol Extra Strength) 500 mg PO Q4H PRN PRN Reason: Pain (Moderate) Stop: 07/09/17 22:30 Al Hydrox/Mg Hydrox/Simethicone (Maalox) 30 ml PO Q4HR PRN PRN Reason: GI DISTRESS Stop: 07/09/17 22:31 Aripiprazole (Abilify) 10 mg PO DAILY [facility] PRN Reason: Protocol Stop: 07/15/17 12:48 Carvedilol (Coreg) 12.5 mg PO BID [facility] Stop: 07/10/17 08:59 Last Admin: 05/16/17 17:46 Dose: 12.5 mg Duloxetine HCl (Cymbalta) 120 mg PO DAILY [facility] PRN Reason: Protocol Stop: 07/10/17 08:59 Last Admin: 05/16/17 09:50 Dose: Not Given Ergocalciferol (Vitamin D) 50,000 iu PO QWED [facility] Stop: 07/09/17 22:14 Last Admin: 05/10/17 22:35 Dose: Not Given Ferrous Sulfate (Iron) 325 mg PO DAILY [facility] Stop: 07/10/17 08:59 Last Admin: 05/16/17 09:50 Dose: Not Given Fish Oil (Thayer 3) 1,000 mg PO DAILY [facility] Stop: 07/10/17 08:59 Last Admin: 05/16/17 09:50 Dose: Not Given Gabapentin (Neurontin) 800 mg PO Q8HR [facility] Stop: 07/10/17 04:59 Last Admin: 05/16/17 20:28 Dose: 800 mg Insulin Aspart (Novolog Insulin Sliding Scale) 0 units SUBQ ACHS [facility] PRN Reason: Protocol Stop: 07/10/17 16:29 Last Admin: 05/16/17 20:30 Dose: 6 units Insulin Detemir (Levemir Insulin) 15 units SUBQ BID@0800,2000 [facility] PRN Reason: Protocol Stop: 07/14/17 20:59 Last Admin: 05/16/17 20:24 Dose: 15 units Lorazepam (Ativan) 1 mg PO Q4HR PRN; Protocol PRN Reason: Anxiety Stop: 07/09/17 22:09 Last Admin: 05/15/17 15:30 Dose: 1 mg Magnesium Hydroxide (Milk Of Magnesia) 30 ml PO HS PRN PRN Reason: Constipation Stop: 07/09/17 22:15 Mirtazapine (Remeron) 15 mg PO HS [facility] PRN Reason: Protocol Stop: 07/10/17 20:59 Last Admin: 05/16/17 20:28 Dose: 15 mg Pantoprazole Sodium (Protonix) 40 mg PO QDAC [facility] Stop: 07/10/17 07:29 Last Admin: 05/16/17 06:41 Dose: 40 mg Tramadol HCl (Ultram) 50 mg PO Q4HR PRN PRN Reason: Pain (Severe) Stop: 07/09/17 22:26 Trazodone HCl (Desyrel) 100 mg PO HS [facility] PRN Reason: Protocol Stop: 07/10/17 20:59 Last Admin: 05/16/17 20:27 Dose: 100 mg General: alert HEENT: NC/AT, PERRLA Lungs: CTAB Cardiovascular: RRR, Normal S1, Normal S2 Abdomen: soft, non-tender, non-distended, positive bowel sound Neurological: no change Internal Medicine Assmt/Plan - Assessment Assessment: Dehydration (Acute) E86.0 Diabetes (Acute) E11.9 Hypokalemia (Acute) E87.6 Hyponatremia (Acute) E87.1 h/o schizophrenia (Acute) history of psychotic disorder (Acute) history of severe depression (Acute) - Plan Plan: as per psych as problems arise Nutritional Asmnt/Malnutr-PDOC - Dietary Evaluation Malnutrition Findings (Please click <Entered> for more info): Nutritional Asmnt/Malnutrition Start: 05/12/17 10: 51 Text: Status: Complete Freq: Document 05/12/17 10:51 GSPRIYANKA (Rec: 05/12/17 11:17 GSPRIYANKA YESICA-FN) Nutritional Asmnt/Malnutrition Patient General Information Nutritional Screening Moderate Risk Screening Diagnosis Schizoaffective disorder bipolar type with psychotic features Pertinent Medical Hx/Surgical Hx DM, HTN, esophageal reflux disease, severe hypokalemia, dementia Subjective Information 61 year old female, transfered from [facility]. 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 Limited physical assessment, no severe muslce fat wasting noted. Avg 67% of meals since adm, meeting 83% of lower end kcal needs. Per [facility] staff, pt was requesting for snacks and ice cream. Few teeth missing. Current Diet Order/ Nutrition Support Low sodium, CCHO Pertinent Medications Vitamin D, Iron, [place] 3, Novolog, Levemir, MOM, Remeron , Protonix Pertinent Labs 05/11: glucose 508H Nutritional Hx/Data Height 1.68 m Height (Calculated Centimeters) 167.6 Current Weight (lbs) 55.474 kg Weight (Calculated Kilograms) 55.5 Weight (Calculated Grams) 96514.3 [place] Body Weight 130 Weight Status Approriate GI Symptoms Food Allergies No Skin Integrity/Comment: Carlos Cheryl. Skin intact. Current %PO Fair (50-74%) Estimated Nutritional Goals BEE in Kcals: Using Current wt Calories/Kcals/Kg CBW 122.3lb/55.6kg Kcals Calculated 1390-1668kcal (25-30kcla/kg) Protein: Using Current wt Protein Calculated 56g (1g/kg) Fluid: ml 1390-1668ml (1ml/kcal) Nutritional Problem 1. Problem Problem Altered nutrition related laboratory values related to Etiology DM aeb Signs/Symptoms: glucose 508 Intervention/Recommendation Comments 1. Continue with current diet order. Clarify "CCHO" as " [id number]." Avg PO intake is inadequate, meeting 83% lwoer end kcal needs. 2. Provide nutrition edu DM as able, pt was soundly asleep during visit. 3. Monitor glucose, adjust insulin, glucose 508. Expected Outcomes/Goals Expected Outcomes/Goals 1. PO intake continue to meet at least 75% of estimated nutritinoal needs.
--- NOTE | 2017-05-16 21:54 | Internal Medicine Prog Note ---
Internal Medicine Subjective - Subjective Service Date: 05/16/17 Patient seen and examined:: with staff Patient is:: awake Per staff patient has:: no adverse event, tolerating meds Internal Medicine Objective - Results Result Diagrams: 05/16/17 07:30 Recent Labs: Laboratory Last Values Sodium 135 mEq/L (136-145) L 05/16/17 07:30 Potassium 3.5 mEq/L (3.5-5.1) 05/16/17 07:30 Chloride 104 mEq/L (98-107) 05/16/17 07:30 Carbon Dioxide 27.8 mEq/L (21.0-31.0) 05/16/17 07:30 Anion Gap 6.7 (7.0-16.0) L 05/16/17 07:30 BUN 13 mg/dL (7-25) 05/16/17 07:30 Creatinine 0.8 mg/dL (0.6-1.2) 05/16/17 07:30 Est GFR ( Amer) > 60.0 ml/min (>90) 05/16/17 07:30 Est GFR (Non-Af Amer) > 60.0 ml/min 05/16/17 07:30 BUN/Creatinine Ratio 16.3 05/16/17 07:30 Glucose 90 mg/dL (70-105) 05/16/17 07:30 POC Glucose 259 MG/DL (70 - 105) H 05/16/17 20:02 Calcium 8.2 mg/dL (8.6-10.3) L 05/16/17 07:30 Total Bilirubin 0.3 mg/dL (0.3-1.0) 05/16/17 07:30 AST 94 U/L (13-39) H 05/16/17 07:30 ALT 55 U/L (7-52) H 05/16/17 07:30 Alkaline Phosphatase 73 U/L (34-104) 05/16/17 07:30 Total Protein 4.7 gm/dL (6.0-8.3) L 05/16/17 07:30 Albumin 2.5 gm/dL (3.7-5.3) L 05/16/17 07:30 Globulin 2.2 gm/dL 05/16/17 07:30 Albumin/Globulin Ratio 1.1 (1.0-1.8) 05/16/17 07:30 - Physical Exam Vitals and I&O: Vital Signs Temp 98.1 F 05/16/17 20:33 Pulse 72 05/16/17 20:33 Resp 19 05/16/17 20:33 BP 133/89 05/16/17 20:33 Pulse Ox 98 05/16/17 20:33 Intake & Output 05/16/17 05/16/17 05/17/17 06:59 18:59 06:59 Intake Total 120 1440 Balance 120 1440 Intake: Oral 120 1440 Other: # Voids 2 1 # Bowel Movements 0 1 Active Medications: Current Medications Acetaminophen (Tylenol) 650 mg PO Q4H PRN PRN Reason: Mild-Moderate Pain or T >101 Stop: 07/09/17 22:29 Acetaminophen (Tylenol Extra Strength) 500 mg PO Q4H PRN PRN Reason: Pain (Moderate) Stop: 07/09/17 22:30 Al Hydrox/Mg Hydrox/Simethicone (Maalox) 30 ml PO Q4HR PRN PRN Reason: GI DISTRESS Stop: 07/09/17 22:31 Aripiprazole (Abilify) 10 mg PO DAILY [facility] PRN Reason: Protocol Stop: 07/15/17 12:48 Carvedilol (Coreg) 12.5 mg PO BID [facility] Stop: 07/10/17 08:59 Last Admin: 05/16/17 17:46 Dose: 12.5 mg Duloxetine HCl (Cymbalta) 120 mg PO DAILY [facility] PRN Reason: Protocol Stop: 07/10/17 08:59 Last Admin: 05/16/17 09:50 Dose: Not Given Ergocalciferol (Vitamin D) 50,000 iu PO QWED [facility] Stop: 07/09/17 22:14 Last Admin: 05/10/17 22:35 Dose: Not Given Ferrous Sulfate (Iron) 325 mg PO DAILY [facility] Stop: 07/10/17 08:59 Last Admin: 05/16/17 09:50 Dose: Not Given Fish Oil ([place] 3) 1,000 mg PO DAILY [facility] Stop: 07/10/17 08:59 Last Admin: 05/16/17 09:50 Dose: Not Given Gabapentin (Neurontin) 800 mg PO Q8HR [facility] Stop: 07/10/17 04:59 Last Admin: 05/16/17 20:28 Dose: 800 mg Insulin Aspart (Novolog Insulin Sliding Scale) 0 units SUBQ ACHS [facility] PRN Reason: Protocol Stop: 07/10/17 16:29 Last Admin: 05/16/17 20:30 Dose: 6 units Insulin Detemir (Levemir Insulin) 15 units SUBQ BID@0800,2000 [facility] PRN Reason: Protocol Stop: 07/14/17 20:59 Last Admin: 05/16/17 20:24 Dose: 15 units Lorazepam (Ativan) 1 mg PO Q4HR PRN; Protocol PRN Reason: Anxiety Stop: 07/09/17 22:09 Last Admin: 05/15/17 15:30 Dose: 1 mg Magnesium Hydroxide (Milk Of Magnesia) 30 ml PO HS PRN PRN Reason: Constipation Stop: 07/09/17 22:15 Mirtazapine (Remeron) 15 mg PO HS [facility] PRN Reason: Protocol Stop: 07/10/17 20:59 Last Admin: 05/16/17 20:28 Dose: 15 mg Pantoprazole Sodium (Protonix) 40 mg PO QDAC [facility] Stop: 07/10/17 07:29 Last Admin: 05/16/17 06:41 Dose: 40 mg Tramadol HCl (Ultram) 50 mg PO Q4HR PRN PRN Reason: Pain (Severe) Stop: 07/09/17 22:26 Trazodone HCl (Desyrel) 100 mg PO HS [facility] PRN Reason: Protocol Stop: 07/10/17 20:59 Last Admin: 05/16/17 20:27 Dose: 100 mg General: alert HEENT: NC/AT, PERRLA Lungs: CTAB Cardiovascular: RRR, Normal S1, Normal S2 Abdomen: soft, non-tender, non-distended, positive bowel sound Neurological: no change Internal Medicine Assmt/Plan - Assessment Assessment: Dehydration (Acute) E86.0 Diabetes (Acute) E11.9 Hypokalemia (Acute) E87.6 Hyponatremia (Acute) E87.1 h/o schizophrenia (Acute) history of psychotic disorder (Acute) history of severe depression (Acute) - Plan Plan: as per psych as problems arise Nutritional Asmnt/Malnutr-PDOC - Dietary Evaluation Malnutrition Findings (Please click <Entered> for more info): Nutritional Asmnt/Malnutrition Start: 05/12/17 10: 51 Text: Status: Complete Freq: Document 05/12/17 10:51 GSPRIYANKA (Rec: 05/12/17 11:17 [email or web address] YESICA-FN) Nutritional Asmnt/Malnutrition Patient General Information Nutritional Screening Moderate Risk Screening Diagnosis Schizoaffective disorder bipolar type with psychotic features Pertinent Medical Hx/Surgical Hx DM, HTN, esophageal reflux disease, severe hypokalemia, dementia Subjective Information 61 year old female, transfered from [facility]. Pt was soundly asleep during visit, information writer visited twice attempted to wake pt, unsuccessful. Limited physical assessment, no severe muslce fat wasting noted. Avg 67% of meals since adm, meeting 83% of lower end kcal needs. Per [facility] staff, pt was requesting for snacks and ice cream. Few teeth missing. Current Diet Order/ Nutrition Support Low sodium, CCHO Pertinent Medications Vitamin D, Iron, [place] 3, Novolog, Levemir, MOM, Remeron , Protonix Pertinent Labs 05/11: glucose 508H Nutritional Hx/Data Height 1.68 m Height (Calculated Centimeters) 167.6 Current Weight (lbs) 55.474 kg Weight (Calculated Kilograms) 55.5 Weight (Calculated Grams) 25923.3 [place] Body Weight 130 Weight Status Approriate GI Symptoms Food Allergies No Skin Integrity/Comment: Carlos Cheryl. Skin intact. Current %PO Fair (50-74%) Estimated Nutritional Goals BEE in Kcals: Using Current wt Calories/Kcals/Kg CBW 122.3lb/55.6kg Kcals Calculated 1390-1668kcal (25-30kcla/kg) Protein: Using Current wt Protein Calculated 56g (1g/kg) Fluid: ml 1390-1668ml (1ml/kcal) Nutritional Problem 1. Problem Problem Altered nutrition related laboratory values related to Etiology DM aeb Signs/Symptoms: glucose 508 Intervention/Recommendation Comments 1. Continue with current diet order. Clarify "CCHO" as " [id number]." Avg PO intake is inadequate, meeting 83% lwoer end kcal needs. 2. Provide nutrition edu DM as able, pt was soundly asleep during visit. 3. Monitor glucose, adjust insulin, glucose 508. Expected Outcomes/Goals Expected Outcomes/Goals 1. PO intake continue to meet at least 75% of estimated nutritinoal needs.
--- NOTE | 2017-05-16 21:54 | Internal Medicine Prog Note ---
Internal Medicine Subjective - Subjective Service Date: 05/16/17 Patient seen and examined:: with staff Patient is:: awake Per staff patient has:: no adverse event, tolerating meds Internal Medicine Objective - Results Result Diagrams: 05/16/17 07:30 Recent Labs: Laboratory Last Values Sodium 135 mEq/L (136-145) L 05/16/17 07:30 Potassium 3.5 mEq/L (3.5-5.1) 05/16/17 07:30 Chloride 104 mEq/L (98-107) 05/16/17 07:30 Carbon Dioxide 27.8 mEq/L (21.0-31.0) 05/16/17 07:30 Anion Gap 6.7 (7.0-16.0) L 05/16/17 07:30 BUN 13 mg/dL (7-25) 05/16/17 07:30 Creatinine 0.8 mg/dL (0.6-1.2) 05/16/17 07:30 Est GFR ( Amer) > 60.0 ml/min (>90) 05/16/17 07:30 Est GFR (Non-Af Amer) > 60.0 ml/min 05/16/17 07:30 BUN/Creatinine Ratio 16.3 05/16/17 07:30 Glucose 90 mg/dL (70-105) 05/16/17 07:30 POC Glucose 259 MG/DL (70 - 105) H 05/16/17 20:02 Calcium 8.2 mg/dL (8.6-10.3) L 05/16/17 07:30 Total Bilirubin 0.3 mg/dL (0.3-1.0) 05/16/17 07:30 AST 94 U/L (13-39) H 05/16/17 07:30 ALT 55 U/L (7-52) H 05/16/17 07:30 Alkaline Phosphatase 73 U/L (34-104) 05/16/17 07:30 Total Protein 4.7 gm/dL (6.0-8.3) L 05/16/17 07:30 Albumin 2.5 gm/dL (3.7-5.3) L 05/16/17 07:30 Globulin 2.2 gm/dL 05/16/17 07:30 Albumin/Globulin Ratio 1.1 (1.0-1.8) 05/16/17 07:30 - Physical Exam Vitals and I&O: Vital Signs Temp 98.1 F 05/16/17 20:33 Pulse 72 05/16/17 20:33 Resp 19 05/16/17 20:33 BP 133/89 05/16/17 20:33 Pulse Ox 98 05/16/17 20:33 Intake & Output 05/16/17 05/16/17 05/17/17 06:59 18:59 06:59 Intake Total 120 1440 Balance 120 1440 Intake: Oral 120 1440 Other: # Voids 2 1 # Bowel Movements 0 1 Active Medications: Current Medications Acetaminophen (Tylenol) 650 mg PO Q4H PRN PRN Reason: Mild-Moderate Pain or T >101 Stop: 07/09/17 22:29 Acetaminophen (Tylenol Extra Strength) 500 mg PO Q4H PRN PRN Reason: Pain (Moderate) Stop: 07/09/17 22:30 Al Hydrox/Mg Hydrox/Simethicone (Maalox) 30 ml PO Q4HR PRN PRN Reason: GI DISTRESS Stop: 07/09/17 22:31 Aripiprazole (Abilify) 10 mg PO DAILY [facility] PRN Reason: Protocol Stop: 07/15/17 12:48 Carvedilol (Coreg) 12.5 mg PO BID [facility] Stop: 07/10/17 08:59 Last Admin: 05/16/17 17:46 Dose: 12.5 mg Duloxetine HCl (Cymbalta) 120 mg PO DAILY [facility] PRN Reason: Protocol Stop: 07/10/17 08:59 Last Admin: 05/16/17 09:50 Dose: Not Given Ergocalciferol (Vitamin D) 50,000 iu PO QWED [facility] Stop: 07/09/17 22:14 Last Admin: 05/10/17 22:35 Dose: Not Given Ferrous Sulfate (Iron) 325 mg PO DAILY [facility] Stop: 07/10/17 08:59 Last Admin: 05/16/17 09:50 Dose: Not Given Fish Oil ([place] 3) 1,000 mg PO DAILY [facility] Stop: 07/10/17 08:59 Last Admin: 05/16/17 09:50 Dose: Not Given Gabapentin (Neurontin) 800 mg PO Q8HR [facility] Stop: 07/10/17 04:59 Last Admin: 05/16/17 20:28 Dose: 800 mg Insulin Aspart (Novolog Insulin Sliding Scale) 0 units SUBQ ACHS [facility] PRN Reason: Protocol Stop: 07/10/17 16:29 Last Admin: 05/16/17 20:30 Dose: 6 units Insulin Detemir (Levemir Insulin) 15 units SUBQ BID@0800,2000 [facility] PRN Reason: Protocol Stop: 07/14/17 20:59 Last Admin: 05/16/17 20:24 Dose: 15 units Lorazepam (Ativan) 1 mg PO Q4HR PRN; Protocol PRN Reason: Anxiety Stop: 07/09/17 22:09 Last Admin: 05/15/17 15:30 Dose: 1 mg Magnesium Hydroxide (Milk Of Magnesia) 30 ml PO HS PRN PRN Reason: Constipation Stop: 07/09/17 22:15 Mirtazapine (Remeron) 15 mg PO HS [facility] PRN Reason: Protocol Stop: 07/10/17 20:59 Last Admin: 05/16/17 20:28 Dose: 15 mg Pantoprazole Sodium (Protonix) 40 mg PO QDAC [facility] Stop: 07/10/17 07:29 Last Admin: 05/16/17 06:41 Dose: 40 mg Tramadol HCl (Ultram) 50 mg PO Q4HR PRN PRN Reason: Pain (Severe) Stop: 07/09/17 22:26 Trazodone HCl (Desyrel) 100 mg PO HS [facility] PRN Reason: Protocol Stop: 07/10/17 20:59 Last Admin: 05/16/17 20:27 Dose: 100 mg General: alert HEENT: NC/AT, PERRLA Lungs: CTAB Cardiovascular: RRR, Normal S1, Normal S2 Abdomen: soft, non-tender, non-distended, positive bowel sound Neurological: no change Internal Medicine Assmt/Plan - Assessment Assessment: Dehydration (Acute) E86.0 Diabetes (Acute) E11.9 Hypokalemia (Acute) E87.6 Hyponatremia (Acute) E87.1 h/o schizophrenia (Acute) history of psychotic disorder (Acute) history of severe depression (Acute) - Plan Plan: as per psych as problems arise Nutritional Asmnt/Malnutr-PDOC - Dietary Evaluation Malnutrition Findings (Please click <Entered> for more info): Nutritional Asmnt/Malnutrition Start: 05/12/17 10: 51 Text: Status: Complete Freq: Document 05/12/17 10:51 [email or web address] (Rec: 05/12/17 11:17 GSPRIYANKA YESICA-FN) Nutritional Asmnt/Malnutrition Patient General Information Nutritional Screening Moderate Risk Screening Diagnosis Schizoaffective disorder bipolar type with psychotic features Pertinent Medical Hx/Surgical Hx DM, HTN, esophageal reflux disease, severe hypokalemia, dementia Subjective Information 61 year old female, transfered from [facility]. 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 Limited physical assessment, no severe muslce fat wasting noted. Avg 67% of meals since adm, meeting 83% of lower end kcal needs. Per [facility] staff, pt was requesting for snacks and ice cream. Few teeth missing. Current Diet Order/ Nutrition Support Low sodium, CCHO Pertinent Medications Vitamin D, Iron, [place] 3, Novolog, Levemir, MOM, Remeron , Protonix Pertinent Labs 05/11: glucose 508H Nutritional Hx/Data Height 1.68 m Height (Calculated Centimeters) 167.6 Current Weight (lbs) 55.474 kg Weight (Calculated Kilograms) 55.5 Weight (Calculated Grams) 67319.3 [place] Body Weight 130 Weight Status Approriate GI Symptoms Food Allergies No Skin Integrity/Comment: Carlos Cheryl. Skin intact. Current %PO Fair (50-74%) Estimated Nutritional Goals BEE in Kcals: Using Current wt Calories/Kcals/Kg CBW 122.3lb/55.6kg Kcals Calculated 1390-1668kcal (25-30kcla/kg) Protein: Using Current wt Protein Calculated 56g (1g/kg) Fluid: ml 1390-1668ml (1ml/kcal) Nutritional Problem 1. Problem Problem Altered nutrition related laboratory values related to Etiology DM aeb Signs/Symptoms: glucose 508 Intervention/Recommendation Comments 1. Continue with current diet order. Clarify "CCHO" as " [id number]." Avg PO intake is inadequate, meeting 83% lwoer end kcal needs. 2. Provide nutrition edu DM as able, pt was soundly asleep during visit. 3. Monitor glucose, adjust insulin, glucose 508. Expected Outcomes/Goals Expected Outcomes/Goals 1. PO intake continue to meet at least 75% of estimated nutritinoal needs.
--- NOTE | 2017-05-17 00:52 | Progress Notes ---
DATE: 05/16/2017 Case was discussed with staff of the patient, reviewed records. The patient was brought from Med-Surg Unit because of confusion and forgetfulness. The patient has been also paranoid. The patient thinks that she is living in her mother's home and that she is not living in a [facility]. The patient has been bizarre on the Med-Surg Unit and thinks that she has no psychiatric problem and she has never been in a psychiatric treatment, although the patient has been taking Cymbalta, Remeron, Neurontin, and Seroquel. She has been confused. The patient has been hospitalized here before. I know her from her prior admission. The patient also is having suicidal ideation, trying to ____ prior to admission. When I talked to her, she is confused, unable to participate in meaningful conversations. She thinks she is living in her home, unpredictable and impulsive. The staff believes she may have an eating disorder and she has been forbidden from getting snacks by her medical doctor. She is on Cymbalta 120 mg daily and Abilify 5 mg daily, which I will be increasing to 10 mg a day; and so far no side effects, no sedation, no nausea, no extrapyramidal symptoms. We will continue to work with the patient in group therapy, milieu therapy, adjust medications as needed. JOB# [id number]
[2017-05-17] MEDS: Pantoprazole 40 mg EC Tab PO SCH (06:49)
[2017-05-17] MEDS: INSULIN ASPART SLIDING SCALE 100 UNITS/ML UNIT SUBQ SCH ×4 (06:54→20:55)
[2017-05-17] MEDS: Ferrous Sulfate 325 MG TAB PO SCH (08:17)
[2017-05-17] MEDS: Fish Oil 1,000 MG SGL PO SCH (08:18)
[2017-05-17] MEDS: Insulin Detemir 100 units/mL 10mL Vial SUBQ SCH ×2 (08:18→20:53)
--- NOTE | 2017-05-17 08:45 | General Progress Note ---
Subjective - Review of Systems Events since last encounter: patient awake confused Objective - Results Result Diagrams: 05/16/17 07:30 Recent Labs: Laboratory Last Values Sodium 135 mEq/L (136-145) L 05/16/17 07:30 Potassium 3.5 mEq/L (3.5-5.1) 05/16/17 07:30 Chloride 104 mEq/L (98-107) 05/16/17 07:30 Carbon Dioxide 27.8 mEq/L (21.0-31.0) 05/16/17 07:30 Anion Gap 6.7 (7.0-16.0) L 05/16/17 07:30 BUN 13 mg/dL (7-25) 05/16/17 07:30 Creatinine 0.8 mg/dL (0.6-1.2) 05/16/17 07:30 Est GFR ( Amer) > 60.0 ml/min (>90) 05/16/17 07:30 Est GFR (Non-Af Amer) > 60.0 ml/min 05/16/17 07:30 BUN/Creatinine Ratio 16.3 05/16/17 07:30 Glucose 90 mg/dL (70-105) 05/16/17 07:30 POC Glucose 53 MG/DL (70 - 105) L 05/17/17 06:01 Calcium 8.2 mg/dL (8.6-10.3) L 05/16/17 07:30 Total Bilirubin 0.3 mg/dL (0.3-1.0) 05/16/17 07:30 AST 94 U/L (13-39) H 05/16/17 07:30 ALT 55 U/L (7-52) H 05/16/17 07:30 Alkaline Phosphatase 73 U/L (34-104) 05/16/17 07:30 Total Protein 4.7 gm/dL (6.0-8.3) L 05/16/17 07:30 Albumin 2.5 gm/dL (3.7-5.3) L 05/16/17 07:30 Globulin 2.2 gm/dL 05/16/17 07:30 Albumin/Globulin Ratio 1.1 (1.0-1.8) 05/16/17 07:30 - Physical Exam Vitals and I&O: Vital Signs Temp 98.4 F 05/17/17 06:32 Pulse 68 05/17/17 08:28 Resp 20 05/17/17 06:32 BP 94/64 05/17/17 08:28 Pulse Ox 98 05/17/17 06:32 Intake & Output 05/16/17 05/17/17 05/17/17 18:59 06:59 18:59 Intake Total 1500 Balance 1500 Intake: Oral 1500 Other: # Voids 1 # Bowel Movements 0 Active Medications: Current Medications Acetaminophen (Tylenol) 650 mg PO Q4H PRN PRN Reason: Mild-Moderate Pain or T >101 Stop: 07/09/17 22:29 Acetaminophen (Tylenol Extra Strength) 500 mg PO Q4H PRN PRN Reason: Pain (Moderate) Stop: 07/09/17 22:30 Al Hydrox/Mg Hydrox/Simethicone (Maalox) 30 ml PO Q4HR PRN PRN Reason: GI DISTRESS Stop: 07/09/17 22:31 Aripiprazole (Abilify) 10 mg PO DAILY [facility] PRN Reason: Protocol Stop: 07/15/17 12:48 Last Admin: 05/17/17 08:17 Dose: 10 mg Carvedilol (Coreg) 12.5 mg PO BID [facility] Stop: 07/10/17 08:59 Last Admin: 05/17/17 08:28 Dose: Not Given Duloxetine HCl (Cymbalta) 120 mg PO DAILY [facility] PRN Reason: Protocol Stop: 07/10/17 08:59 Last Admin: 05/17/17 08:16 Dose: 120 mg Ergocalciferol (Vitamin D) 50,000 iu PO QWED [facility] Stop: 07/09/17 22:14 Last Admin: 05/10/17 22:35 Dose: Not Given Ferrous Sulfate (Iron) 325 mg PO DAILY [facility] Stop: 07/10/17 08:59 Last Admin: 05/17/17 08:17 Dose: 325 mg Fish Oil ([place] 3) 1,000 mg PO DAILY [facility] Stop: 07/10/17 08:59 Last Admin: 05/17/17 08:18 Dose: 1,000 mg Gabapentin (Neurontin) 800 mg PO Q8HR [facility] Stop: 07/10/17 04:59 Last Admin: 05/17/17 05:00 Dose: 800 mg Insulin Aspart (Novolog Insulin Sliding Scale) 0 units SUBQ ACHS [facility] PRN Reason: Protocol Stop: 07/10/17 16:29 Last Admin: 05/17/17 06:54 Dose: Not Given Insulin Detemir (Levemir Insulin) 15 units SUBQ BID@0800,2000 [facility] PRN Reason: Protocol Stop: 07/14/17 20:59 Last Admin: 05/17/17 08:18 Dose: 15 units Lorazepam (Ativan) 1 mg PO Q4HR PRN; Protocol PRN Reason: Anxiety Stop: 07/09/17 22:09 Last Admin: 05/15/17 15:30 Dose: 1 mg Magnesium Hydroxide (Milk Of Magnesia) 30 ml PO HS PRN PRN Reason: Constipation Stop: 07/09/17 22:15 Mirtazapine (Remeron) 15 mg PO HS [facility] PRN Reason: Protocol Stop: 07/10/17 20:59 Last Admin: 05/16/17 20:28 Dose: 15 mg Pantoprazole Sodium (Protonix) 40 mg PO QDAC [facility] Stop: 07/10/17 07:29 Last Admin: 05/17/17 06:49 Dose: 40 mg Tramadol HCl (Ultram) 50 mg PO Q4HR PRN PRN Reason: Pain (Severe) Stop: 07/09/17 22:26 Trazodone HCl (Desyrel) 100 mg PO HS [facility] PRN Reason: Protocol Stop: 07/10/17 20:59 Last Admin: 05/16/17 20:27 Dose: 100 mg General: No acute distress HEENT: Atraumatic, PERRLA Cardiovascular: Regular rate, Normal S1 Lungs: Clear to auscultation Abdomen: Bowel sounds Assessment/Plan - Problem List Patient Problems: All Active Problems Dehydration (Acute) E86.0 Diabetes (Acute) E11.9 Hypokalemia (Acute) E87.6 Hyponatremia (Acute) E87.1 h/o schizophrenia (Acute) history of psychotic disorder (Acute) history of severe depression (Acute) - Assessment Assessment: Dehydration (Acute) E86.0 Diabetes (Acute) E11.9 Hypokalemia (Acute) E87.6 Hyponatremia (Acute) E87.1 h/o schizophrenia (Acute) history of psychotic disorder (Acute) history of severe depression (Acute) - Plan Plan: as per psych as problems arise Nutritional Asmnt/Malnutr-PDOC - Dietary Evaluation Malnutrition Findings (Please click <Entered> for more info): Nutritional Asmnt/Malnutrition Start: 05/12/17 10: 51 Text: Status: Complete Freq: Document 05/12/17 10:51 GSPRIYANKA (Rec: 05/12/17 11:17 GSPRIYANKA YESICA-FN) Nutritional Asmnt/Malnutrition Patient General Information Nutritional Screening Moderate Risk Screening Diagnosis Schizoaffective disorder bipolar type with psychotic features Pertinent Medical Hx/Surgical Hx DM, HTN, esophageal reflux disease, severe hypokalemia, dementia Subjective Information 61 year old female, transfered from [facility]. Pt was soundly asleep during visit, web content writer visited twice attempted to wake pt, unsuccessful. Limited physical assessment, no severe muslce fat wasting noted. Avg 67% of meals since adm, meeting 83% of lower end kcal needs. Per [facility] staff, pt was requesting for snacks and ice cream. Few teeth missing. Current Diet Order/ Nutrition Support Low sodium, CCHO Pertinent Medications Vitamin D, Iron, [place] 3, Novolog, Levemir, MOM, Remeron , Protonix Pertinent Labs 05/11: glucose 508H Nutritional Hx/Data Height 1.68 m Height (Calculated Centimeters) 167.6 Current Weight (lbs) 55.474 kg Weight (Calculated Kilograms) 55.5 Weight (Calculated Grams) 48371.3 [place] Body Weight 130 Weight Status Approriate GI Symptoms Food Allergies No Skin Integrity/Comment: Carlos 20. Skin intact. Current %PO Fair (50-74%) Estimated Nutritional Goals BEE in Kcals: Using Current wt Calories/Kcals/Kg CBW 122.3lb/55.6kg Kcals Calculated 1390-1668kcal (25-30kcla/kg) Protein: Using Current wt Protein Calculated 56g (1g/kg) Fluid: ml 1390-1668ml (1ml/kcal) Nutritional Problem 1. Problem Problem Altered nutrition related laboratory values related to Etiology DM aeb Signs/Symptoms: glucose 508 Intervention/Recommendation Comments 1. Continue with current diet order. Clarify "CCHO" as " [id number]." Avg PO intake is inadequate, meeting 83% lwoer end kcal needs. 2. Provide nutrition edu DM as able, pt was soundly asleep during visit. 3. Monitor glucose, adjust insulin, glucose 508. Expected Outcomes/Goals Expected Outcomes/Goals 1. PO intake continue to meet at least 75% of estimated nutritinoal needs.
--- NOTE | 2017-05-17 08:45 | General Progress Note ---
Subjective - Review of Systems Events since last encounter: patient awake confused Objective - Results Result Diagrams: 05/16/17 07:30 Recent Labs: Laboratory Last Values Sodium 135 mEq/L (136-145) L 05/16/17 07:30 Potassium 3.5 mEq/L (3.5-5.1) 05/16/17 07:30 Chloride 104 mEq/L (98-107) 05/16/17 07:30 Carbon Dioxide 27.8 mEq/L (21.0-31.0) 05/16/17 07:30 Anion Gap 6.7 (7.0-16.0) L 05/16/17 07:30 BUN 13 mg/dL (7-25) 05/16/17 07:30 Creatinine 0.8 mg/dL (0.6-1.2) 05/16/17 07:30 Est GFR ( Amer) > 60.0 ml/min (>90) 05/16/17 07:30 Est GFR (Non-Af Amer) > 60.0 ml/min 05/16/17 07:30 BUN/Creatinine Ratio 16.3 05/16/17 07:30 Glucose 90 mg/dL (70-105) 05/16/17 07:30 POC Glucose 53 MG/DL (70 - 105) L 05/17/17 06:01 Calcium 8.2 mg/dL (8.6-10.3) L 05/16/17 07:30 Total Bilirubin 0.3 mg/dL (0.3-1.0) 05/16/17 07:30 AST 94 U/L (13-39) H 05/16/17 07:30 ALT 55 U/L (7-52) H 05/16/17 07:30 Alkaline Phosphatase 73 U/L (34-104) 05/16/17 07:30 Total Protein 4.7 gm/dL (6.0-8.3) L 05/16/17 07:30 Albumin 2.5 gm/dL (3.7-5.3) L 05/16/17 07:30 Globulin 2.2 gm/dL 05/16/17 07:30 Albumin/Globulin Ratio 1.1 (1.0-1.8) 05/16/17 07:30 - Physical Exam Vitals and I&O: Vital Signs Temp 98.4 F 05/17/17 06:32 Pulse 68 05/17/17 08:28 Resp 20 05/17/17 06:32 BP 94/64 05/17/17 08:28 Pulse Ox 98 05/17/17 06:32 Intake & Output 05/16/17 05/17/17 05/17/17 18:59 06:59 18:59 Intake Total 1500 Balance 1500 Intake: Oral 1500 Other: # Voids 1 # Bowel Movements 0 Active Medications: Current Medications Acetaminophen (Tylenol) 650 mg PO Q4H PRN PRN Reason: Mild-Moderate Pain or T >101 Stop: 07/09/17 22:29 Acetaminophen (Tylenol Extra Strength) 500 mg PO Q4H PRN PRN Reason: Pain (Moderate) Stop: 07/09/17 22:30 Al Hydrox/Mg Hydrox/Simethicone (Maalox) 30 ml PO Q4HR PRN PRN Reason: GI DISTRESS Stop: 07/09/17 22:31 Aripiprazole (Abilify) 10 mg PO DAILY DEVAUGHN PRN Reason: Protocol Stop: 07/15/17 12:48 Last Admin: 05/17/17 08:17 Dose: 10 mg Carvedilol (Coreg) 12.5 mg PO BID [facility] Stop: 07/10/17 08:59 Last Admin: 05/17/17 08:28 Dose: Not Given Duloxetine HCl (Cymbalta) 120 mg PO DAILY DEVAUGHN PRN Reason: Protocol Stop: 07/10/17 08:59 Last Admin: 05/17/17 08:16 Dose: 120 mg Ergocalciferol (Vitamin D) 50,000 iu PO QWED [facility] Stop: 07/09/17 22:14 Last Admin: 05/10/17 22:35 Dose: Not Given Ferrous Sulfate (Iron) 325 mg PO DAILY [facility] Stop: 07/10/17 08:59 Last Admin: 05/17/17 08:17 Dose: 325 mg Fish Oil ([place] 3) 1,000 mg PO DAILY [facility] Stop: 07/10/17 08:59 Last Admin: 05/17/17 08:18 Dose: 1,000 mg Gabapentin (Neurontin) 800 mg PO Q8HR [facility] Stop: 07/10/17 04:59 Last Admin: 05/17/17 05:00 Dose: 800 mg Insulin Aspart (Novolog Insulin Sliding Scale) 0 units SUBQ ACHS DEVAUGHN PRN Reason: Protocol Stop: 07/10/17 16:29 Last Admin: 05/17/17 06:54 Dose: Not Given Insulin Detemir (Levemir Insulin) 15 units SUBQ BID@0800,2000 DEVAUGHN PRN Reason: Protocol Stop: 07/14/17 20:59 Last Admin: 05/17/17 08:18 Dose: 15 units Lorazepam (Ativan) 1 mg PO Q4HR PRN; Protocol PRN Reason: Anxiety Stop: 07/09/17 22:09 Last Admin: 05/15/17 15:30 Dose: 1 mg Magnesium Hydroxide (Milk Of Magnesia) 30 ml PO HS PRN PRN Reason: Constipation Stop: 07/09/17 22:15 Mirtazapine (Remeron) 15 mg PO HS DEVAUGHN PRN Reason: Protocol Stop: 07/10/17 20:59 Last Admin: 05/16/17 20:28 Dose: 15 mg Pantoprazole Sodium (Protonix) 40 mg PO QDAC [facility] Stop: 07/10/17 07:29 Last Admin: 05/17/17 06:49 Dose: 40 mg Tramadol HCl (Ultram) 50 mg PO Q4HR PRN PRN Reason: Pain (Severe) Stop: 07/09/17 22:26 Trazodone HCl (Desyrel) 100 mg PO HS DEVAUGHN PRN Reason: Protocol Stop: 07/10/17 20:59 Last Admin: 05/16/17 20:27 Dose: 100 mg General: No acute distress HEENT: Atraumatic, PERRLA Cardiovascular: Regular rate, Normal S1 Lungs: Clear to auscultation Abdomen: Bowel sounds Assessment/Plan - Problem List Patient Problems: All Active Problems Dehydration (Acute) E86.0 Diabetes (Acute) E11.9 Hypokalemia (Acute) E87.6 Hyponatremia (Acute) E87.1 h/o schizophrenia (Acute) history of psychotic disorder (Acute) history of severe depression (Acute) - Assessment Assessment: Dehydration (Acute) E86.0 Diabetes (Acute) E11.9 Hypokalemia (Acute) E87.6 Hyponatremia (Acute) E87.1 h/o schizophrenia (Acute) history of psychotic disorder (Acute) history of severe depression (Acute) - Plan Plan: as per psych as problems arise Nutritional Asmnt/Malnutr-PDOC - Dietary Evaluation Malnutrition Findings (Please click <Entered> for more info): Nutritional Asmnt/Malnutrition Start: 05/12/17 10: 51 Text: Status: Complete Freq: Document 05/12/17 10:51 GSPRIYANKA (Rec: 05/12/17 11:17 [email or web address] YESICA-FN) Nutritional Asmnt/Malnutrition Patient General Information Nutritional Screening Moderate Risk Screening Diagnosis Schizoaffective disorder bipolar type with psychotic features Pertinent Medical Hx/Surgical Hx DM, HTN, esophageal reflux disease, severe hypokalemia, dementia Subjective Information 61 year old female, transfered from [facility]. Pt was soundly asleep during visit, field underwriter visited twice attempted to wake pt, unsuccessful. Limited physical assessment, no severe muslce fat wasting noted. Avg 67% of meals since adm, meeting 83% of lower end kcal needs. Per [facility] staff, pt was requesting for snacks and ice cream. Few teeth missing. Current Diet Order/ Nutrition Support Low sodium, CCHO Pertinent Medications Vitamin D, Iron, [place] 3, Novolog, Levemir, MOM, Remeron , Protonix Pertinent Labs 05/11: glucose 508H Nutritional Hx/Data Height 1.68 m Height (Calculated Centimeters) 167.6 Current Weight (lbs) 55.474 kg Weight (Calculated Kilograms) 55.5 Weight (Calculated Grams) 79630.3 [place] Body Weight 130 Weight Status Approriate GI Symptoms Food Allergies No Skin Integrity/Comment: Carlos 20. Skin intact. Current %PO Fair (50-74%) Estimated Nutritional Goals BEE in Kcals: Using Current wt Calories/Kcals/Kg CBW 122.3lb/55.6kg Kcals Calculated 1390-1668kcal (25-30kcla/kg) Protein: Using Current wt Protein Calculated 56g (1g/kg) Fluid: ml 1390-1668ml (1ml/kcal) Nutritional Problem 1. Problem Problem Altered nutrition related laboratory values related to Etiology DM aeb Signs/Symptoms: glucose 508 Intervention/Recommendation Comments 1. Continue with current diet order. Clarify "CCHO" as " [id number]." Avg PO intake is inadequate, meeting 83% lwoer end kcal needs. 2. Provide nutrition edu DM as able, pt was soundly asleep during visit. 3. Monitor glucose, adjust insulin, glucose 508. Expected Outcomes/Goals Expected Outcomes/Goals 1. PO intake continue to meet at least 75% of estimated nutritinoal needs.
--- NOTE | 2017-05-17 08:45 | General Progress Note ---
Subjective - Review of Systems Events since last encounter: patient awake confused Objective - Results Result Diagrams: 05/16/17 07:30 Recent Labs: Laboratory Last Values Sodium 135 mEq/L (136-145) L 05/16/17 07:30 Potassium 3.5 mEq/L (3.5-5.1) 05/16/17 07:30 Chloride 104 mEq/L (98-107) 05/16/17 07:30 Carbon Dioxide 27.8 mEq/L (21.0-31.0) 05/16/17 07:30 Anion Gap 6.7 (7.0-16.0) L 05/16/17 07:30 BUN 13 mg/dL (7-25) 05/16/17 07:30 Creatinine 0.8 mg/dL (0.6-1.2) 05/16/17 07:30 Est GFR ( Amer) > 60.0 ml/min (>90) 05/16/17 07:30 Est GFR (Non-Af Amer) > 60.0 ml/min 05/16/17 07:30 BUN/Creatinine Ratio 16.3 05/16/17 07:30 Glucose 90 mg/dL (70-105) 05/16/17 07:30 POC Glucose 53 MG/DL (70 - 105) L 05/17/17 06:01 Calcium 8.2 mg/dL (8.6-10.3) L 05/16/17 07:30 Total Bilirubin 0.3 mg/dL (0.3-1.0) 05/16/17 07:30 AST 94 U/L (13-39) H 05/16/17 07:30 ALT 55 U/L (7-52) H 05/16/17 07:30 Alkaline Phosphatase 73 U/L (34-104) 05/16/17 07:30 Total Protein 4.7 gm/dL (6.0-8.3) L 05/16/17 07:30 Albumin 2.5 gm/dL (3.7-5.3) L 05/16/17 07:30 Globulin 2.2 gm/dL 05/16/17 07:30 Albumin/Globulin Ratio 1.1 (1.0-1.8) 05/16/17 07:30 - Physical Exam Vitals and I&O: Vital Signs Temp 98.4 F 05/17/17 06:32 Pulse 68 05/17/17 08:28 Resp 20 05/17/17 06:32 BP 94/64 05/17/17 08:28 Pulse Ox 98 05/17/17 06:32 Intake & Output 05/16/17 05/17/17 05/17/17 18:59 06:59 18:59 Intake Total 1500 Balance 1500 Intake: Oral 1500 Other: # Voids 1 # Bowel Movements 0 Active Medications: Current Medications Acetaminophen (Tylenol) 650 mg PO Q4H PRN PRN Reason: Mild-Moderate Pain or T >101 Stop: 07/09/17 22:29 Acetaminophen (Tylenol Extra Strength) 500 mg PO Q4H PRN PRN Reason: Pain (Moderate) Stop: 07/09/17 22:30 Al Hydrox/Mg Hydrox/Simethicone (Maalox) 30 ml PO Q4HR PRN PRN Reason: GI DISTRESS Stop: 07/09/17 22:31 Aripiprazole (Abilify) 10 mg PO DAILY DEVAUGHN PRN Reason: Protocol Stop: 07/15/17 12:48 Last Admin: 05/17/17 08:17 Dose: 10 mg Carvedilol (Coreg) 12.5 mg PO BID [facility] Stop: 07/10/17 08:59 Last Admin: 05/17/17 08:28 Dose: Not Given Duloxetine HCl (Cymbalta) 120 mg PO DAILY [facility]AUGHN PRN Reason: Protocol Stop: 07/10/17 08:59 Last Admin: 05/17/17 08:16 Dose: 120 mg Ergocalciferol (Vitamin D) 50,000 iu PO QWED [facility] Stop: 07/09/17 22:14 Last Admin: 05/10/17 22:35 Dose: Not Given Ferrous Sulfate (Iron) 325 mg PO DAILY [facility] Stop: 07/10/17 08:59 Last Admin: 05/17/17 08:17 Dose: 325 mg Fish Oil ([place] 3) 1,000 mg PO DAILY [facility] Stop: 07/10/17 08:59 Last Admin: 05/17/17 08:18 Dose: 1,000 mg Gabapentin (Neurontin) 800 mg PO Q8HR [facility] Stop: 07/10/17 04:59 Last Admin: 05/17/17 05:00 Dose: 800 mg Insulin Aspart (Novolog Insulin Sliding Scale) 0 units SUBQ ACHS DEVAUGHN PRN Reason: Protocol Stop: 07/10/17 16:29 Last Admin: 05/17/17 06:54 Dose: Not Given Insulin Detemir (Levemir Insulin) 15 units SUBQ BID@0800,2000 DEVAUGHN PRN Reason: Protocol Stop: 07/14/17 20:59 Last Admin: 05/17/17 08:18 Dose: 15 units Lorazepam (Ativan) 1 mg PO Q4HR PRN; Protocol PRN Reason: Anxiety Stop: 07/09/17 22:09 Last Admin: 05/15/17 15:30 Dose: 1 mg Magnesium Hydroxide (Milk Of Magnesia) 30 ml PO HS PRN PRN Reason: Constipation Stop: 07/09/17 22:15 Mirtazapine (Remeron) 15 mg PO HS [facility]AUGHN PRN Reason: Protocol Stop: 07/10/17 20:59 Last Admin: 05/16/17 20:28 Dose: 15 mg Pantoprazole Sodium (Protonix) 40 mg PO QDAC [facility] Stop: 07/10/17 07:29 Last Admin: 05/17/17 06:49 Dose: 40 mg Tramadol HCl (Ultram) 50 mg PO Q4HR PRN PRN Reason: Pain (Severe) Stop: 07/09/17 22:26 Trazodone HCl (Desyrel) 100 mg PO HS DEVAUGHN PRN Reason: Protocol Stop: 07/10/17 20:59 Last Admin: 05/16/17 20:27 Dose: 100 mg General: No acute distress HEENT: Atraumatic, PERRLA Cardiovascular: Regular rate, Normal S1 Lungs: Clear to auscultation Abdomen: Bowel sounds Assessment/Plan - Problem List Patient Problems: All Active Problems Dehydration (Acute) E86.0 Diabetes (Acute) E11.9 Hypokalemia (Acute) E87.6 Hyponatremia (Acute) E87.1 h/o schizophrenia (Acute) history of psychotic disorder (Acute) history of severe depression (Acute) - Assessment Assessment: Dehydration (Acute) E86.0 Diabetes (Acute) E11.9 Hypokalemia (Acute) E87.6 Hyponatremia (Acute) E87.1 h/o schizophrenia (Acute) history of psychotic disorder (Acute) history of severe depression (Acute) - Plan Plan: as per psych as problems arise Nutritional Asmnt/Malnutr-PDOC - Dietary Evaluation Malnutrition Findings (Please click <Entered> for more info): Nutritional Asmnt/Malnutrition Start: 05/12/17 10: 51 Text: Status: Complete Freq: Document 05/12/17 10:51 GSPRIYANKA (Rec: 05/12/17 11:17 GSPRIYANKA YESICA-FN) Nutritional Asmnt/Malnutrition Patient General Information Nutritional Screening Moderate Risk Screening Diagnosis Schizoaffective disorder bipolar type with psychotic features Pertinent Medical Hx/Surgical Hx DM, HTN, esophageal reflux disease, severe hypokalemia, dementia Subjective Information 61 year old female, transfered from [facility]. Pt was soundly asleep during visit, racebook writer visited twice attempted to wake pt, unsuccessful. Limited physical assessment, no severe muslce fat wasting noted. Avg 67% of meals since adm, meeting 83% of lower end kcal needs. Per [facility] staff, pt was requesting for snacks and ice cream. Few teeth missing. Current Diet Order/ Nutrition Support Low sodium, CCHO Pertinent Medications Vitamin D, Iron, [place] 3, Novolog, Levemir, MOM, Remeron , Protonix Pertinent Labs 05/11: glucose 508H Nutritional Hx/Data Height 1.68 m Height (Calculated Centimeters) 167.6 Current Weight (lbs) 55.474 kg Weight (Calculated Kilograms) 55.5 Weight (Calculated Grams) 67793.3 [place] Body Weight 130 Weight Status Approriate GI Symptoms Food Allergies No Skin Integrity/Comment: [place] 20. Skin intact. Current %PO Fair (50-74%) Estimated Nutritional Goals BEE in Kcals: Using Current wt Calories/Kcals/Kg CBW 122.3lb/55.6kg Kcals Calculated 1390-1668kcal (25-30kcla/kg) Protein: Using Current wt Protein Calculated 56g (1g/kg) Fluid: ml 1390-1668ml (1ml/kcal) Nutritional Problem 1. Problem Problem Altered nutrition related laboratory values related to Etiology DM aeb Signs/Symptoms: glucose 508 Intervention/Recommendation Comments 1. Continue with current diet order. Clarify "CCHO" as " [id number]." Avg PO intake is inadequate, meeting 83% lwoer end kcal needs. 2. Provide nutrition edu DM as able, pt was soundly asleep during visit. 3. Monitor glucose, adjust insulin, glucose 508. Expected Outcomes/Goals Expected Outcomes/Goals 1. PO intake continue to meet at least 75% of estimated nutritinoal needs.
--- NOTE | 2017-05-18 00:10 | Progress Notes ---
DATE: 05/17/[address] Crawford. The patient continues to be internally preoccupied, stays in her room, unable to make safe plan for self-care. Continues to be unpredictable, impulsive, needing redirection. She has been compliant with the medication with no side effects, no sedation, no nausea. Continues to be confused and no side effects with the medication, no sedation, no nausea, no extrapyramidal symptoms. He tolerated the increase in Abilify and we will continue to work with the patient in group therapy, milieu therapy, adjust medication as needed. JOB# [id number]
[2017-05-18] MEDS: Pantoprazole 40 mg EC Tab PO SCH ×2 (06:50→06:57)
[2017-05-18] MEDS: INSULIN ASPART SLIDING SCALE 100 UNITS/ML UNIT SUBQ SCH ×4 (06:53→20:55)
--- NOTE | 2017-05-18 08:38 | General Progress Note ---
Subjective - Review of Systems Events since last encounter: no acute distress Objective - Results Result Diagrams: 05/16/17 07:30 Recent Labs: Laboratory Last Values Sodium 135 mEq/L (136-145) L 05/16/17 07:30 Potassium 3.5 mEq/L (3.5-5.1) 05/16/17 07:30 Chloride 104 mEq/L (98-107) 05/16/17 07:30 Carbon Dioxide 27.8 mEq/L (21.0-31.0) 05/16/17 07:30 Anion Gap 6.7 (7.0-16.0) L 05/16/17 07:30 BUN 13 mg/dL (7-25) 05/16/17 07:30 Creatinine 0.8 mg/dL (0.6-1.2) 05/16/17 07:30 Est GFR ( Amer) > 60.0 ml/min (>90) 05/16/17 07:30 Est GFR (Non-Af Amer) > 60.0 ml/min 05/16/17 07:30 BUN/Creatinine Ratio 16.3 05/16/17 07:30 Glucose 90 mg/dL (70-105) 05/16/17 07:30 POC Glucose 81 MG/DL (70 - 105) 05/18/17 06:45 Calcium 8.2 mg/dL (8.6-10.3) L 05/16/17 07:30 Total Bilirubin 0.3 mg/dL (0.3-1.0) 05/16/17 07:30 AST 94 U/L (13-39) H 05/16/17 07:30 ALT 55 U/L (7-52) H 05/16/17 07:30 Alkaline Phosphatase 73 U/L (34-104) 05/16/17 07:30 Total Protein 4.7 gm/dL (6.0-8.3) L 05/16/17 07:30 Albumin 2.5 gm/dL (3.7-5.3) L 05/16/17 07:30 Globulin 2.2 gm/dL 05/16/17 07:30 Albumin/Globulin Ratio 1.1 (1.0-1.8) 05/16/17 07:30 - Physical Exam Vitals and I&O: Vital Signs Temp 97.8 F 05/18/17 06:57 Pulse 72 05/18/17 06:57 Resp 20 05/18/17 06:57 BP 143/69 05/18/17 06:57 Pulse Ox 96 05/18/17 06:57 Intake & Output 05/17/17 05/18/17 05/18/17 18:59 06:59 18:59 Intake Total 950 120 Balance 950 120 Intake: Oral 950 120 Other: # Voids 4 3 # Bowel Movements 1 0 Active Medications: Current Medications Acetaminophen (Tylenol) 650 mg PO Q4H PRN PRN Reason: Mild-Moderate Pain or T >101 Stop: 07/09/17 22:29 Acetaminophen (Tylenol Extra Strength) 500 mg PO Q4H PRN PRN Reason: Pain (Moderate) Stop: 07/09/17 22:30 Al Hydrox/Mg Hydrox/Simethicone (Maalox) 30 ml PO Q4HR PRN PRN Reason: GI DISTRESS Stop: 07/09/17 22:31 Aripiprazole (Abilify) 10 mg PO DAILY [facility]AUGHN PRN Reason: Protocol Stop: 07/15/17 12:48 Last Admin: 05/17/17 08:17 Dose: 10 mg Carvedilol (Coreg) 12.5 mg PO BID [facility] Stop: 07/10/17 08:59 Last Admin: 05/17/17 17:29 Dose: Not Given Duloxetine HCl (Cymbalta) 120 mg PO DAILY [facility]AUGHN PRN Reason: Protocol Stop: 07/10/17 08:59 Last Admin: 05/17/17 08:16 Dose: 120 mg Ergocalciferol (Vitamin D) 50,000 iu PO QWED [facility] Stop: 07/09/17 22:14 Last Admin: 05/10/17 22:35 Dose: Not Given Ferrous Sulfate (Iron) 325 mg PO DAILY [facility] Stop: 07/10/17 08:59 Last Admin: 05/17/17 08:17 Dose: 325 mg Fish Oil ([place] 3) 1,000 mg PO DAILY [facility] Stop: 07/10/17 08:59 Last Admin: 05/17/17 08:18 Dose: 1,000 mg Gabapentin (Neurontin) 800 mg PO Q8HR [facility] Stop: 07/10/17 04:59 Last Admin: 05/18/17 05:00 Dose: Not Given Insulin Aspart (Novolog Insulin Sliding Scale) 0 units SUBQ ACHS [facility]AUGHN PRN Reason: Protocol Stop: 07/10/17 16:29 Last Admin: 05/18/17 06:53 Dose: Not Given Insulin Detemir (Levemir Insulin) 15 units SUBQ BID@0800,2000 DEVAUGHN PRN Reason: Protocol Stop: 07/14/17 20:59 Last Admin: 05/17/17 20:53 Dose: 15 units Lorazepam (Ativan) 1 mg PO Q4HR PRN; Protocol PRN Reason: Anxiety Stop: 07/09/17 22:09 Last Admin: 05/15/17 15:30 Dose: 1 mg Magnesium Hydroxide (Milk Of Magnesia) 30 ml PO HS PRN PRN Reason: Constipation Stop: 07/09/17 22:15 Mirtazapine (Remeron) 15 mg PO HS [facility]AUGHN PRN Reason: Protocol Stop: 07/10/17 20:59 Last Admin: 05/17/17 20:54 Dose: Not Given Pantoprazole Sodium (Protonix) 40 mg PO QDAC [facility] Stop: 07/10/17 07:29 Last Admin: 05/18/17 06:57 Dose: Not Given Tramadol HCl (Ultram) 50 mg PO Q4HR PRN PRN Reason: Pain (Severe) Stop: 07/09/17 22:26 Trazodone HCl (Desyrel) 100 mg PO HS [facility]AUGHN PRN Reason: Protocol Stop: 07/10/17 20:59 Last Admin: 05/17/17 20:55 Dose: Not Given General: No acute distress HEENT: Atraumatic, PERRLA Cardiovascular: Regular rate, Normal S1 Lungs: Clear to auscultation Abdomen: Bowel sounds Assessment/Plan - Problem List Patient Problems: All Active Problems Dehydration (Acute) E86.0 Diabetes (Acute) E11.9 Hypokalemia (Acute) E87.6 Hyponatremia (Acute) E87.1 h/o schizophrenia (Acute) history of psychotic disorder (Acute) history of severe depression (Acute) - Assessment Assessment: Dehydration (Acute) E86.0 Diabetes (Acute) E11.9 Hypokalemia (Acute) E87.6 Hyponatremia (Acute) E87.1 h/o schizophrenia (Acute) history of psychotic disorder (Acute) history of severe depression (Acute) - Plan Plan: as per psych as problems arise Nutritional Asmnt/Malnutr-PDOC - Dietary Evaluation Malnutrition Findings (Please click <Entered> for more info): Nutritional Asmnt/Malnutrition Start: 05/12/17 10: 51 Text: Status: Complete Freq: Document 05/12/17 10:51 [email or web address] (Rec: 05/12/17 11:17 SEFERINO YESICA-FN) Nutritional Asmnt/Malnutrition Patient General Information Nutritional Screening Moderate Risk Screening Diagnosis Schizoaffective disorder bipolar type with psychotic features Pertinent Medical Hx/Surgical Hx DM, HTN, esophageal reflux disease, severe hypokalemia, dementia Subjective Information 61 year old female, transfered from [facility]. Pt was soundly asleep during visit, report writer visited twice attempted to wake pt, unsuccessful. Limited physical assessment, no severe muslce fat wasting noted. Avg 67% of meals since adm, meeting 83% of lower end kcal needs. Per [facility] staff, pt was requesting for snacks and ice cream. Few teeth missing. Current Diet Order/ Nutrition Support Low sodium, CCHO Pertinent Medications Vitamin D, Iron, [place] 3, Novolog, Levemir, MOM, Remeron , Protonix Pertinent Labs 05/11: glucose 508H Nutritional Hx/Data Height 1.68 m Height (Calculated Centimeters) 167.6 Current Weight (lbs) 55.474 kg Weight (Calculated Kilograms) 55.5 Weight (Calculated Grams) 66901.3 [place] Body Weight 130 Weight Status Approriate GI Symptoms Food Allergies No Skin Integrity/Comment: [place] 20. Skin intact. Current %PO Fair (50-74%) Estimated Nutritional Goals BEE in Kcals: Using Current wt Calories/Kcals/Kg CBW 122.3lb/55.6kg Kcals Calculated 1390-1668kcal (25-30kcla/kg) Protein: Using Current wt Protein Calculated 56g (1g/kg) Fluid: ml 1390-1668ml (1ml/kcal) Nutritional Problem 1. Problem Problem Altered nutrition related laboratory values related to Etiology DM aeb Signs/Symptoms: glucose 508 Intervention/Recommendation Comments 1. Continue with current diet order. Clarify "CCHO" as " [id number]." Avg PO intake is inadequate, meeting 83% lwoer end kcal needs. 2. Provide nutrition edu DM as able, pt was soundly asleep during visit. 3. Monitor glucose, adjust insulin, glucose 508. Expected Outcomes/Goals Expected Outcomes/Goals 1. PO intake continue to meet at least 75% of estimated nutritinoal needs.
--- NOTE | 2017-05-18 08:38 | General Progress Note ---
Subjective - Review of Systems Events since last encounter: no acute distress Objective - Results Result Diagrams: 05/16/17 07:30 Recent Labs: Laboratory Last Values Sodium 135 mEq/L (136-145) L 05/16/17 07:30 Potassium 3.5 mEq/L (3.5-5.1) 05/16/17 07:30 Chloride 104 mEq/L (98-107) 05/16/17 07:30 Carbon Dioxide 27.8 mEq/L (21.0-31.0) 05/16/17 07:30 Anion Gap 6.7 (7.0-16.0) L 05/16/17 07:30 BUN 13 mg/dL (7-25) 05/16/17 07:30 Creatinine 0.8 mg/dL (0.6-1.2) 05/16/17 07:30 Est GFR ( Amer) > 60.0 ml/min (>90) 05/16/17 07:30 Est GFR (Non-Af Amer) > 60.0 ml/min 05/16/17 07:30 BUN/Creatinine Ratio 16.3 05/16/17 07:30 Glucose 90 mg/dL (70-105) 05/16/17 07:30 POC Glucose 81 MG/DL (70 - 105) 05/18/17 06:45 Calcium 8.2 mg/dL (8.6-10.3) L 05/16/17 07:30 Total Bilirubin 0.3 mg/dL (0.3-1.0) 05/16/17 07:30 AST 94 U/L (13-39) H 05/16/17 07:30 ALT 55 U/L (7-52) H 05/16/17 07:30 Alkaline Phosphatase 73 U/L (34-104) 05/16/17 07:30 Total Protein 4.7 gm/dL (6.0-8.3) L 05/16/17 07:30 Albumin 2.5 gm/dL (3.7-5.3) L 05/16/17 07:30 Globulin 2.2 gm/dL 05/16/17 07:30 Albumin/Globulin Ratio 1.1 (1.0-1.8) 05/16/17 07:30 - Physical Exam Vitals and I&O: Vital Signs Temp 97.8 F 05/18/17 06:57 Pulse 72 05/18/17 06:57 Resp 20 05/18/17 06:57 BP 143/69 05/18/17 06:57 Pulse Ox 96 05/18/17 06:57 Intake & Output 05/17/17 05/18/17 05/18/17 18:59 06:59 18:59 Intake Total 950 120 Balance 950 120 Intake: Oral 950 120 Other: # Voids 4 3 # Bowel Movements 1 0 Active Medications: Current Medications Acetaminophen (Tylenol) 650 mg PO Q4H PRN PRN Reason: Mild-Moderate Pain or T >101 Stop: 07/09/17 22:29 Acetaminophen (Tylenol Extra Strength) 500 mg PO Q4H PRN PRN Reason: Pain (Moderate) Stop: 07/09/17 22:30 Al Hydrox/Mg Hydrox/Simethicone (Maalox) 30 ml PO Q4HR PRN PRN Reason: GI DISTRESS Stop: 07/09/17 22:31 Aripiprazole (Abilify) 10 mg PO DAILY DEVAUGHN PRN Reason: Protocol Stop: 07/15/17 12:48 Last Admin: 05/17/17 08:17 Dose: 10 mg Carvedilol (Coreg) 12.5 mg PO BID [facility] Stop: 07/10/17 08:59 Last Admin: 05/17/17 17:29 Dose: Not Given Duloxetine HCl (Cymbalta) 120 mg PO DAILY DEVAUGHN PRN Reason: Protocol Stop: 07/10/17 08:59 Last Admin: 05/17/17 08:16 Dose: 120 mg Ergocalciferol (Vitamin D) 50,000 iu PO QWED [facility] Stop: 07/09/17 22:14 Last Admin: 05/10/17 22:35 Dose: Not Given Ferrous Sulfate (Iron) 325 mg PO DAILY [facility] Stop: 07/10/17 08:59 Last Admin: 05/17/17 08:17 Dose: 325 mg Fish Oil ([place] 3) 1,000 mg PO DAILY [facility] Stop: 07/10/17 08:59 Last Admin: 05/17/17 08:18 Dose: 1,000 mg Gabapentin (Neurontin) 800 mg PO Q8HR [facility] Stop: 07/10/17 04:59 Last Admin: 05/18/17 05:00 Dose: Not Given Insulin Aspart (Novolog Insulin Sliding Scale) 0 units SUBQ ACHS DEVAUGHN PRN Reason: Protocol Stop: 07/10/17 16:29 Last Admin: 05/18/17 06:53 Dose: Not Given Insulin Detemir (Levemir Insulin) 15 units SUBQ BID@0800,2000 DEVAUGHN PRN Reason: Protocol Stop: 07/14/17 20:59 Last Admin: 05/17/17 20:53 Dose: 15 units Lorazepam (Ativan) 1 mg PO Q4HR PRN; Protocol PRN Reason: Anxiety Stop: 07/09/17 22:09 Last Admin: 05/15/17 15:30 Dose: 1 mg Magnesium Hydroxide (Milk Of Magnesia) 30 ml PO HS PRN PRN Reason: Constipation Stop: 07/09/17 22:15 Mirtazapine (Remeron) 15 mg PO HS DEVAUGHN PRN Reason: Protocol Stop: 07/10/17 20:59 Last Admin: 05/17/17 20:54 Dose: Not Given Pantoprazole Sodium (Protonix) 40 mg PO QDAC DEVAUGHN Stop: 07/10/17 07:29 Last Admin: 05/18/17 06:57 Dose: Not Given Tramadol HCl (Ultram) 50 mg PO Q4HR PRN PRN Reason: Pain (Severe) Stop: 07/09/17 22:26 Trazodone HCl (Desyrel) 100 mg PO HS DEVAUGHN PRN Reason: Protocol Stop: 07/10/17 20:59 Last Admin: 05/17/17 20:55 Dose: Not Given General: No acute distress HEENT: Atraumatic, PERRLA Cardiovascular: Regular rate, Normal S1 Lungs: Clear to auscultation Abdomen: Bowel sounds Assessment/Plan - Problem List Patient Problems: All Active Problems Dehydration (Acute) E86.0 Diabetes (Acute) E11.9 Hypokalemia (Acute) E87.6 Hyponatremia (Acute) E87.1 h/o schizophrenia (Acute) history of psychotic disorder (Acute) history of severe depression (Acute) - Assessment Assessment: Dehydration (Acute) E86.0 Diabetes (Acute) E11.9 Hypokalemia (Acute) E87.6 Hyponatremia (Acute) E87.1 h/o schizophrenia (Acute) history of psychotic disorder (Acute) history of severe depression (Acute) - Plan Plan: as per psych as problems arise Nutritional Asmnt/Malnutr-PDOC - Dietary Evaluation Malnutrition Findings (Please click <Entered> for more info): Nutritional Asmnt/Malnutrition Start: 05/12/17 10: 51 Text: Status: Complete Freq: Document 05/12/17 10:51 [email or web address] (Rec: 05/12/17 11:17 SEFERINO YESICA-FN) Nutritional Asmnt/Malnutrition Patient General Information Nutritional Screening Moderate Risk Screening Diagnosis Schizoaffective disorder bipolar type with psychotic features Pertinent Medical Hx/Surgical Hx DM, HTN, esophageal reflux disease, severe hypokalemia, dementia Subjective Information 61 year old female, transfered from [facility]. Pt was soundly asleep during visit, insurance underwriter visited twice attempted to wake pt, unsuccessful. Limited physical assessment, no severe muslce fat wasting noted. Avg 67% of meals since adm, meeting 83% of lower end kcal needs. Per [facility] staff, pt was requesting for snacks and ice cream. Few teeth missing. Current Diet Order/ Nutrition Support Low sodium, CCHO Pertinent Medications Vitamin D, Iron, [place] 3, Novolog, Levemir, MOM, Remeron , Protonix Pertinent Labs 05/11: glucose 508H Nutritional Hx/Data Height 1.68 m Height (Calculated Centimeters) 167.6 Current Weight (lbs) 55.474 kg Weight (Calculated Kilograms) 55.5 Weight (Calculated Grams) 83132.3 [place] Body Weight 130 Weight Status Approriate GI Symptoms Food Allergies No Skin Integrity/Comment: Carlos 20. Skin intact. Current %PO Fair (50-74%) Estimated Nutritional Goals BEE in Kcals: Using Current wt Calories/Kcals/Kg CBW 122.3lb/55.6kg Kcals Calculated 1390-1668kcal (25-30kcla/kg) Protein: Using Current wt Protein Calculated 56g (1g/kg) Fluid: ml 1390-1668ml (1ml/kcal) Nutritional Problem 1. Problem Problem Altered nutrition related laboratory values related to Etiology DM aeb Signs/Symptoms: glucose 508 Intervention/Recommendation Comments 1. Continue with current diet order. Clarify "CCHO" as " [id number]." Avg PO intake is inadequate, meeting 83% lwoer end kcal needs. 2. Provide nutrition edu DM as able, pt was soundly asleep during visit. 3. Monitor glucose, adjust insulin, glucose 508. Expected Outcomes/Goals Expected Outcomes/Goals 1. PO intake continue to meet at least 75% of estimated nutritinoal needs.
--- NOTE | 2017-05-18 08:38 | General Progress Note ---
Subjective - Review of Systems Events since last encounter: no acute distress Objective - Results Result Diagrams: 05/16/17 07:30 Recent Labs: Laboratory Last Values Sodium 135 mEq/L (136-145) L 05/16/17 07:30 Potassium 3.5 mEq/L (3.5-5.1) 05/16/17 07:30 Chloride 104 mEq/L (98-107) 05/16/17 07:30 Carbon Dioxide 27.8 mEq/L (21.0-31.0) 05/16/17 07:30 Anion Gap 6.7 (7.0-16.0) L 05/16/17 07:30 BUN 13 mg/dL (7-25) 05/16/17 07:30 Creatinine 0.8 mg/dL (0.6-1.2) 05/16/17 07:30 Est GFR ( Amer) > 60.0 ml/min (>90) 05/16/17 07:30 Est GFR (Non-Af Amer) > 60.0 ml/min 05/16/17 07:30 BUN/Creatinine Ratio 16.3 05/16/17 07:30 Glucose 90 mg/dL (70-105) 05/16/17 07:30 POC Glucose 81 MG/DL (70 - 105) 05/18/17 06:45 Calcium 8.2 mg/dL (8.6-10.3) L 05/16/17 07:30 Total Bilirubin 0.3 mg/dL (0.3-1.0) 05/16/17 07:30 AST 94 U/L (13-39) H 05/16/17 07:30 ALT 55 U/L (7-52) H 05/16/17 07:30 Alkaline Phosphatase 73 U/L (34-104) 05/16/17 07:30 Total Protein 4.7 gm/dL (6.0-8.3) L 05/16/17 07:30 Albumin 2.5 gm/dL (3.7-5.3) L 05/16/17 07:30 Globulin 2.2 gm/dL 05/16/17 07:30 Albumin/Globulin Ratio 1.1 (1.0-1.8) 05/16/17 07:30 - Physical Exam Vitals and I&O: Vital Signs Temp 97.8 F 05/18/17 06:57 Pulse 72 05/18/17 06:57 Resp 20 05/18/17 06:57 BP 143/69 05/18/17 06:57 Pulse Ox 96 05/18/17 06:57 Intake & Output 05/17/17 05/18/17 05/18/17 18:59 06:59 18:59 Intake Total 950 120 Balance 950 120 Intake: Oral 950 120 Other: # Voids 4 3 # Bowel Movements 1 0 Active Medications: Current Medications Acetaminophen (Tylenol) 650 mg PO Q4H PRN PRN Reason: Mild-Moderate Pain or T >101 Stop: 07/09/17 22:29 Acetaminophen (Tylenol Extra Strength) 500 mg PO Q4H PRN PRN Reason: Pain (Moderate) Stop: 07/09/17 22:30 Al Hydrox/Mg Hydrox/Simethicone (Maalox) 30 ml PO Q4HR PRN PRN Reason: GI DISTRESS Stop: 07/09/17 22:31 Aripiprazole (Abilify) 10 mg PO DAILY DEVAUGHN PRN Reason: Protocol Stop: 07/15/17 12:48 Last Admin: 05/17/17 08:17 Dose: 10 mg Carvedilol (Coreg) 12.5 mg PO BID [facility] Stop: 07/10/17 08:59 Last Admin: 05/17/17 17:29 Dose: Not Given Duloxetine HCl (Cymbalta) 120 mg PO DAILY DEVAUGHN PRN Reason: Protocol Stop: 07/10/17 08:59 Last Admin: 05/17/17 08:16 Dose: 120 mg Ergocalciferol (Vitamin D) 50,000 iu PO QWED [facility] Stop: 07/09/17 22:14 Last Admin: 05/10/17 22:35 Dose: Not Given Ferrous Sulfate (Iron) 325 mg PO DAILY [facility] Stop: 07/10/17 08:59 Last Admin: 05/17/17 08:17 Dose: 325 mg Fish Oil ([place] 3) 1,000 mg PO DAILY [facility] Stop: 07/10/17 08:59 Last Admin: 05/17/17 08:18 Dose: 1,000 mg Gabapentin (Neurontin) 800 mg PO Q8HR [facility] Stop: 07/10/17 04:59 Last Admin: 05/18/17 05:00 Dose: Not Given Insulin Aspart (Novolog Insulin Sliding Scale) 0 units SUBQ ACHS DEVAUGHN PRN Reason: Protocol Stop: 07/10/17 16:29 Last Admin: 05/18/17 06:53 Dose: Not Given Insulin Detemir (Levemir Insulin) 15 units SUBQ BID@0800,2000 DEVAUGHN PRN Reason: Protocol Stop: 07/14/17 20:59 Last Admin: 05/17/17 20:53 Dose: 15 units Lorazepam (Ativan) 1 mg PO Q4HR PRN; Protocol PRN Reason: Anxiety Stop: 07/09/17 22:09 Last Admin: 05/15/17 15:30 Dose: 1 mg Magnesium Hydroxide (Milk Of Magnesia) 30 ml PO HS PRN PRN Reason: Constipation Stop: 07/09/17 22:15 Mirtazapine (Remeron) 15 mg PO HS DEVAUGHN PRN Reason: Protocol Stop: 07/10/17 20:59 Last Admin: 05/17/17 20:54 Dose: Not Given Pantoprazole Sodium (Protonix) 40 mg PO QDAC DEVAUGHN Stop: 07/10/17 07:29 Last Admin: 05/18/17 06:57 Dose: Not Given Tramadol HCl (Ultram) 50 mg PO Q4HR PRN PRN Reason: Pain (Severe) Stop: 07/09/17 22:26 Trazodone HCl (Desyrel) 100 mg PO HS DEVAUGHN PRN Reason: Protocol Stop: 07/10/17 20:59 Last Admin: 05/17/17 20:55 Dose: Not Given General: No acute distress HEENT: Atraumatic, PERRLA Cardiovascular: Regular rate, Normal S1 Lungs: Clear to auscultation Abdomen: Bowel sounds Assessment/Plan - Problem List Patient Problems: All Active Problems Dehydration (Acute) E86.0 Diabetes (Acute) E11.9 Hypokalemia (Acute) E87.6 Hyponatremia (Acute) E87.1 h/o schizophrenia (Acute) history of psychotic disorder (Acute) history of severe depression (Acute) - Assessment Assessment: Dehydration (Acute) E86.0 Diabetes (Acute) E11.9 Hypokalemia (Acute) E87.6 Hyponatremia (Acute) E87.1 h/o schizophrenia (Acute) history of psychotic disorder (Acute) history of severe depression (Acute) - Plan Plan: as per psych as problems arise Nutritional Asmnt/Malnutr-PDOC - Dietary Evaluation Malnutrition Findings (Please click <Entered> for more info): Nutritional Asmnt/Malnutrition Start: 05/12/17 10: 51 Text: Status: Complete Freq: Document 05/12/17 10:51 [email or web address] (Rec: 05/12/17 11:17 SEFERINO YESICA-FN) Nutritional Asmnt/Malnutrition Patient General Information Nutritional Screening Moderate Risk Screening Diagnosis Schizoaffective disorder bipolar type with psychotic features Pertinent Medical Hx/Surgical Hx DM, HTN, esophageal reflux disease, severe hypokalemia, dementia Subjective Information 61 year old female, transfered from [facility]. Pt was soundly asleep during visit, underwriter mortgage loan visited twice attempted to wake pt, unsuccessful. Limited physical assessment, no severe muslce fat wasting noted. Avg 67% of meals since adm, meeting 83% of lower end kcal needs. Per [facility] staff, pt was requesting for snacks and ice cream. Few teeth missing. Current Diet Order/ Nutrition Support Low sodium, CCHO Pertinent Medications Vitamin D, Iron, [place] 3, Novolog, Levemir, MOM, Remeron , Protonix Pertinent Labs 05/11: glucose 508H Nutritional Hx/Data Height 1.68 m Height (Calculated Centimeters) 167.6 Current Weight (lbs) 55.474 kg Weight (Calculated Kilograms) 55.5 Weight (Calculated Grams) 23222.3 [place] Body Weight 130 Weight Status Approriate GI Symptoms Food Allergies No Skin Integrity/Comment: [place] 20. Skin intact. Current %PO Fair (50-74%) Estimated Nutritional Goals BEE in Kcals: Using Current wt Calories/Kcals/Kg CBW 122.3lb/55.6kg Kcals Calculated 1390-1668kcal (25-30kcla/kg) Protein: Using Current wt Protein Calculated 56g (1g/kg) Fluid: ml 1390-1668ml (1ml/kcal) Nutritional Problem 1. Problem Problem Altered nutrition related laboratory values related to Etiology DM aeb Signs/Symptoms: glucose 508 Intervention/Recommendation Comments 1. Continue with current diet order. Clarify "CCHO" as " [id number]." Avg PO intake is inadequate, meeting 83% lwoer end kcal needs. 2. Provide nutrition edu DM as able, pt was soundly asleep during visit. 3. Monitor glucose, adjust insulin, glucose 508. Expected Outcomes/Goals Expected Outcomes/Goals 1. PO intake continue to meet at least 75% of estimated nutritinoal needs.
[2017-05-18] MEDS: Insulin Detemir 100 units/mL 10mL Vial SUBQ SCH ×2 (09:05→20:56)
[2017-05-18] MEDS: Fish Oil 1,000 MG SGL PO SCH (09:09)
[2017-05-18] MEDS: Ferrous Sulfate 325 MG TAB PO SCH (09:10)
--- NOTE | 2017-05-18 18:00 | Progress Notes ---
DATE: SUBJECTIVE: Chart reviewed and the patient interviewed. Also discussed the patient's condition with the staff and reviewed records and labs. The patient is still withdrawn. The patient stays by herself most of the time in her room. The patient also is still inconsistent with her eating habits and sometimes she does not, which causes unstable blood sugar. She also is still refusing care and is still paranoid and suspicious. Otherwise, the patient is taking her medications with no side effects of medications. ASSESSMENT: The patient is still psychotic and is still agitated. TREATMENT PLAN: We will continue to monitor her behavior and her condition and encourage the patient to interact more and get out of her isolation and we will continue to follow up closely. [facility]# [id number]
[2017-05-19] MEDS: Pantoprazole 40 mg EC Tab PO SCH (06:37)
[2017-05-19] MEDS: INSULIN ASPART SLIDING SCALE 100 UNITS/ML UNIT SUBQ SCH ×4 (06:38→20:31)
[2017-05-19] MEDS: Insulin Detemir 100 units/mL 10mL Vial SUBQ SCH ×2 (08:13→20:30)
[2017-05-19] MEDS: Fish Oil 1,000 MG SGL PO SCH (10:04)
[2017-05-19] MEDS: Ferrous Sulfate 325 MG TAB PO SCH (10:04)
--- NOTE | 2017-05-19 15:32 | General Progress Note ---
Subjective - Review of Systems Events since last encounter: patient confused psychotic Objective - Results Result Diagrams: 05/16/17 07:30 Recent Labs: Laboratory Last Values Sodium 135 mEq/L (136-145) L 05/16/17 07:30 Potassium 3.5 mEq/L (3.5-5.1) 05/16/17 07:30 Chloride 104 mEq/L (98-107) 05/16/17 07:30 Carbon Dioxide 27.8 mEq/L (21.0-31.0) 05/16/17 07:30 Anion Gap 6.7 (7.0-16.0) L 05/16/17 07:30 BUN 13 mg/dL (7-25) 05/16/17 07:30 Creatinine 0.8 mg/dL (0.6-1.2) 05/16/17 07:30 Est GFR ( Amer) > 60.0 ml/min (>90) 05/16/17 07:30 Est GFR (Non-Af Amer) > 60.0 ml/min 05/16/17 07:30 BUN/Creatinine Ratio 16.3 05/16/17 07:30 Glucose 90 mg/dL (70-105) 05/16/17 07:30 POC Glucose 263 MG/DL (70 - 105) H 05/19/17 11:27 Calcium 8.2 mg/dL (8.6-10.3) L 05/16/17 07:30 Total Bilirubin 0.3 mg/dL (0.3-1.0) 05/16/17 07:30 AST 94 U/L (13-39) H 05/16/17 07:30 ALT 55 U/L (7-52) H 05/16/17 07:30 Alkaline Phosphatase 73 U/L (34-104) 05/16/17 07:30 Total Protein 4.7 gm/dL (6.0-8.3) L 05/16/17 07:30 Albumin 2.5 gm/dL (3.7-5.3) L 05/16/17 07:30 Globulin 2.2 gm/dL 05/16/17 07:30 Albumin/Globulin Ratio 1.1 (1.0-1.8) 05/16/17 07:30 - Physical Exam Vitals and I&O: Vital Signs Temp 98.8 F 05/19/17 06:43 Pulse 71 05/19/17 10:04 Resp 18 05/19/17 06:43 BP 110/65 05/19/17 10:04 Pulse Ox 98 05/19/17 06:43 Intake & Output 05/18/17 05/19/17 05/19/17 18:59 06:59 18:59 Intake Total 1800 120 Balance 1800 120 Intake: Oral 1800 120 Other: # Voids 4 3 # Bowel Movements 0 Active Medications: Current Medications Acetaminophen (Tylenol) 650 mg PO Q4H PRN PRN Reason: Mild-Moderate Pain or T >101 Stop: 07/09/17 22:29 Acetaminophen (Tylenol Extra Strength) 500 mg PO Q4H PRN PRN Reason: Pain (Moderate) Stop: 07/09/17 22:30 Al Hydrox/Mg Hydrox/Simethicone (Maalox) 30 ml PO Q4HR PRN PRN Reason: GI DISTRESS Stop: 07/09/17 22:31 Aripiprazole (Abilify) 5 mg PO HS DEVAUGHN PRN Reason: Protocol Stop: 07/18/17 20:59 Carvedilol (Coreg) 12.5 mg PO BID DEVAUGHN Stop: 07/10/17 08:59 Last Admin: 05/19/17 10:04 Dose: 12.5 mg Duloxetine HCl (Cymbalta) 60 mg PO DAILY DEVAUGHN PRN Reason: Protocol Stop: 07/10/17 08:59 Last Admin: 05/19/17 10:03 Dose: 60 mg Ergocalciferol (Vitamin D) 50,000 iu PO QWED [facility] Stop: 07/09/17 22:14 Last Admin: 05/18/17 16:55 Dose: Not Given Ferrous Sulfate (Iron) 325 mg PO DAILY [facility] Stop: 07/10/17 08:59 Last Admin: 05/19/17 10:04 Dose: 325 mg Fish Oil ([place] 3) 1,000 mg PO DAILY DEVAUGHN Stop: 07/10/17 08:59 Last Admin: 05/19/17 10:04 Dose: 1,000 mg Gabapentin (Neurontin) 800 mg PO Q8HR DEVAUGHN Stop: 07/10/17 04:59 Last Admin: 05/19/17 12:34 Dose: 400 mg Insulin Aspart (Novolog Insulin Sliding Scale) 0 units SUBQ ACHS DEVAUGHN PRN Reason: Protocol Stop: 07/10/17 16:29 Last Admin: 05/19/17 12:05 Dose: 6 units Insulin Detemir (Levemir Insulin) 15 units SUBQ BID@0800,2000 DEVAUGHN PRN Reason: Protocol Stop: 07/14/17 20:59 Last Admin: 05/19/17 08:13 Dose: 15 units Lorazepam (Ativan) 1 mg PO Q4HR PRN; Protocol PRN Reason: Anxiety Stop: 07/17/17 10:33 Magnesium Hydroxide (Milk Of Magnesia) 30 ml PO HS PRN PRN Reason: Constipation Stop: 07/09/17 22:15 Mirtazapine (Remeron) 15 mg PO HS DEVAUGHN PRN Reason: Protocol Stop: 07/10/17 20:59 Last Admin: 05/18/17 20:55 Dose: 15 mg Pantoprazole Sodium (Protonix) 40 mg PO QDAC DEVAUGHN Stop: 07/10/17 07:29 Last Admin: 05/19/17 06:37 Dose: 40 mg Trazodone HCl (Desyrel) 100 mg PO HS DEVAUGHN PRN Reason: Protocol Stop: 07/10/17 20:59 Last Admin: 05/18/17 20:55 Dose: 100 mg General: No acute distress HEENT: Atraumatic, PERRLA Cardiovascular: Regular rate, Normal S1 Lungs: Clear to auscultation Abdomen: Bowel sounds Assessment/Plan - Problem List Patient Problems: All Active Problems Dehydration (Acute) E86.0 Diabetes (Acute) E11.9 Hypokalemia (Acute) E87.6 Hyponatremia (Acute) E87.1 h/o schizophrenia (Acute) history of psychotic disorder (Acute) history of severe depression (Acute) - Assessment Assessment: Dehydration (Acute) E86.0 Diabetes (Acute) E11.9 Hypokalemia (Acute) E87.6 Hyponatremia (Acute) E87.1 h/o schizophrenia (Acute) history of psychotic disorder (Acute) history of severe depression (Acute) - Plan Plan: as per psych as problems arise Nutritional Asmnt/Malnutr-PDOC - Dietary Evaluation Malnutrition Findings (Please click <Entered> for more info): Nutritional Asmnt/Malnutrition Start: 05/12/17 10: 51 Text: Status: Complete Freq: Document 05/12/17 10:51 GSUN (Rec: 05/12/17 11:17 SEFERINO [email or web address]) Nutritional Asmnt/Malnutrition Patient General Information Nutritional Screening Moderate Risk Screening Diagnosis Schizoaffective disorder bipolar type with psychotic features Pertinent Medical Hx/Surgical Hx DM, HTN, esophageal reflux disease, severe hypokalemia, dementia Subjective Information 61 year old female, transfered from [facility]. Pt was soundly asleep during visit, radio script writer visited twice attempted to wake pt, unsuccessful. Limited physical assessment, no severe muslce fat wasting noted. Avg 67% of meals since adm, meeting 83% of lower end kcal needs. Per [facility] staff, pt was requesting for snacks and ice cream. Few teeth missing. Current Diet Order/ Nutrition Support Low sodium, CCHO Pertinent Medications Vitamin D, Iron, [place] 3, Novolog, Levemir, MOM, Remeron , Protonix Pertinent Labs 05/11: glucose 508H Nutritional Hx/Data Height 1.68 m Height (Calculated Centimeters) 167.6 Current Weight (lbs) 55.474 kg Weight (Calculated Kilograms) 55.5 Weight (Calculated Grams) 81271.3 [place] Body Weight 130 Weight Status Approriate GI Symptoms Food Allergies No Skin Integrity/Comment: [place] 20. Skin intact. Current %PO Fair (50-74%) Estimated Nutritional Goals BEE in Kcals: Using Current wt Calories/Kcals/Kg CBW 122.3lb/55.6kg Kcals Calculated 1390-1668kcal (25-30kcla/kg) Protein: Using Current wt Protein Calculated 56g (1g/kg) Fluid: ml 1390-1668ml (1ml/kcal) Nutritional Problem 1. Problem Problem Altered nutrition related laboratory values related to Etiology DM aeb Signs/Symptoms: glucose 508 Intervention/Recommendation Comments 1. Continue with current diet order. Clarify "CCHO" as " [id number]." Avg PO intake is inadequate, meeting 83% lwoer end kcal needs. 2. Provide nutrition edu DM as able, pt was soundly asleep during visit. 3. Monitor glucose, adjust insulin, glucose 508. Expected Outcomes/Goals Expected Outcomes/Goals 1. PO intake continue to meet at least 75% of estimated nutritinoal needs.
--- NOTE | 2017-05-19 15:32 | General Progress Note ---
Subjective - Review of Systems Events since last encounter: patient confused psychotic Objective - Results Result Diagrams: 05/16/17 07:30 Recent Labs: Laboratory Last Values Sodium 135 mEq/L (136-145) L 05/16/17 07:30 Potassium 3.5 mEq/L (3.5-5.1) 05/16/17 07:30 Chloride 104 mEq/L (98-107) 05/16/17 07:30 Carbon Dioxide 27.8 mEq/L (21.0-31.0) 05/16/17 07:30 Anion Gap 6.7 (7.0-16.0) L 05/16/17 07:30 BUN 13 mg/dL (7-25) 05/16/17 07:30 Creatinine 0.8 mg/dL (0.6-1.2) 05/16/17 07:30 Est GFR ( Amer) > 60.0 ml/min (>90) 05/16/17 07:30 Est GFR (Non-Af Amer) > 60.0 ml/min 05/16/17 07:30 BUN/Creatinine Ratio 16.3 05/16/17 07:30 Glucose 90 mg/dL (70-105) 05/16/17 07:30 POC Glucose 263 MG/DL (70 - 105) H 05/19/17 11:27 Calcium 8.2 mg/dL (8.6-10.3) L 05/16/17 07:30 Total Bilirubin 0.3 mg/dL (0.3-1.0) 05/16/17 07:30 AST 94 U/L (13-39) H 05/16/17 07:30 ALT 55 U/L (7-52) H 05/16/17 07:30 Alkaline Phosphatase 73 U/L (34-104) 05/16/17 07:30 Total Protein 4.7 gm/dL (6.0-8.3) L 05/16/17 07:30 Albumin 2.5 gm/dL (3.7-5.3) L 05/16/17 07:30 Globulin 2.2 gm/dL 05/16/17 07:30 Albumin/Globulin Ratio 1.1 (1.0-1.8) 05/16/17 07:30 - Physical Exam Vitals and I&O: Vital Signs Temp 98.8 F 05/19/17 06:43 Pulse 71 05/19/17 10:04 Resp 18 05/19/17 06:43 BP 110/65 05/19/17 10:04 Pulse Ox 98 05/19/17 06:43 Intake & Output 05/18/17 05/19/17 05/19/17 18:59 06:59 18:59 Intake Total 1800 120 Balance 1800 120 Intake: Oral 1800 120 Other: # Voids 4 3 # Bowel Movements 0 Active Medications: Current Medications Acetaminophen (Tylenol) 650 mg PO Q4H PRN PRN Reason: Mild-Moderate Pain or T >101 Stop: 07/09/17 22:29 Acetaminophen (Tylenol Extra Strength) 500 mg PO Q4H PRN PRN Reason: Pain (Moderate) Stop: 07/09/17 22:30 Al Hydrox/Mg Hydrox/Simethicone (Maalox) 30 ml PO Q4HR PRN PRN Reason: GI DISTRESS Stop: 07/09/17 22:31 Aripiprazole (Abilify) 5 mg PO HS DEVAUGHN PRN Reason: Protocol Stop: 07/18/17 20:59 Carvedilol (Coreg) 12.5 mg PO BID DEVAUGHN Stop: 07/10/17 08:59 Last Admin: 05/19/17 10:04 Dose: 12.5 mg Duloxetine HCl (Cymbalta) 60 mg PO DAILY DEVAUGHN PRN Reason: Protocol Stop: 07/10/17 08:59 Last Admin: 05/19/17 10:03 Dose: 60 mg Ergocalciferol (Vitamin D) 50,000 iu PO QWED [facility] Stop: 07/09/17 22:14 Last Admin: 05/18/17 16:55 Dose: Not Given Ferrous Sulfate (Iron) 325 mg PO DAILY [facility] Stop: 07/10/17 08:59 Last Admin: 05/19/17 10:04 Dose: 325 mg Fish Oil ([place] 3) 1,000 mg PO DAILY DEVAUGHN Stop: 07/10/17 08:59 Last Admin: 05/19/17 10:04 Dose: 1,000 mg Gabapentin (Neurontin) 800 mg PO Q8HR [facility]AUGH[facility] Stop: 07/10/17 04:59 Last Admin: 05/19/17 12:34 Dose: 400 mg Insulin Aspart (Novolog Insulin Sliding Scale) 0 units SUBQ ACHS DEVAGUHN PRN Reason: Protocol Stop: 07/10/17 16:29 Last Admin: 05/19/17 12:05 Dose: 6 units Insulin Detemir (Levemir Insulin) 15 units SUBQ BID@0800,2000 DEVAUGHN PRN Reason: Protocol Stop: 07/14/17 20:59 Last Admin: 05/19/17 08:13 Dose: 15 units Lorazepam (Ativan) 1 mg PO Q4HR PRN; Protocol PRN Reason: Anxiety Stop: 07/17/17 10:33 Magnesium Hydroxide (Milk Of Magnesia) 30 ml PO HS PRN PRN Reason: Constipation Stop: 07/09/17 22:15 Mirtazapine (Remeron) 15 mg PO HS DEVAUGHN PRN Reason: Protocol Stop: 07/10/17 20:59 Last Admin: 05/18/17 20:55 Dose: 15 mg Pantoprazole Sodium (Protonix) 40 mg PO QDAC [facility]AUGHN Stop: 07/10/17 07:29 Last Admin: 05/19/17 06:37 Dose: 40 mg Trazodone HCl (Desyrel) 100 mg PO HS DEVAUGHN PRN Reason: Protocol Stop: 07/10/17 20:59 Last Admin: 05/18/17 20:55 Dose: 100 mg General: No acute distress HEENT: Atraumatic, PERRLA Cardiovascular: Regular rate, Normal S1 Lungs: Clear to auscultation Abdomen: Bowel sounds Assessment/Plan - Problem List Patient Problems: All Active Problems Dehydration (Acute) E86.0 Diabetes (Acute) E11.9 Hypokalemia (Acute) E87.6 Hyponatremia (Acute) E87.1 h/o schizophrenia (Acute) history of psychotic disorder (Acute) history of severe depression (Acute) - Assessment Assessment: Dehydration (Acute) E86.0 Diabetes (Acute) E11.9 Hypokalemia (Acute) E87.6 Hyponatremia (Acute) E87.1 h/o schizophrenia (Acute) history of psychotic disorder (Acute) history of severe depression (Acute) - Plan Plan: as per psych as problems arise Nutritional Asmnt/Malnutr-PDOC - Dietary Evaluation Malnutrition Findings (Please click <Entered> for more info): Nutritional Asmnt/Malnutrition Start: 05/12/17 10: 51 Text: Status: Complete Freq: Document 05/12/17 10:51 GSUN (Rec: 05/12/17 11:17 [email or web address]) Nutritional Asmnt/Malnutrition Patient General Information Nutritional Screening Moderate Risk Screening Diagnosis Schizoaffective disorder bipolar type with psychotic features Pertinent Medical Hx/Surgical Hx DM, HTN, esophageal reflux disease, severe hypokalemia, dementia Subjective Information 61 year old female, transfered from [facility]. Pt was soundly asleep during visit, justowriter operator visited twice attempted to wake pt, unsuccessful. Limited physical assessment, no severe muslce fat wasting noted. Avg 67% of meals since adm, meeting 83% of lower end kcal needs. Per [facility] staff, pt was requesting for snacks and ice cream. Few teeth missing. Current Diet Order/ Nutrition Support Low sodium, CCHO Pertinent Medications Vitamin D, Iron, [place] 3, Novolog, Levemir, MOM, Remeron , Protonix Pertinent Labs 05/11: glucose 508H Nutritional Hx/Data Height 1.68 m Height (Calculated Centimeters) 167.6 Current Weight (lbs) 55.474 kg Weight (Calculated Kilograms) 55.5 Weight (Calculated Grams) 95531.3 [place] Body Weight 130 Weight Status Approriate GI Symptoms Food Allergies No Skin Integrity/Comment: Carlos 20. Skin intact. Current %PO Fair (50-74%) Estimated Nutritional Goals BEE in Kcals: Using Current wt Calories/Kcals/Kg CBW 122.3lb/55.6kg Kcals Calculated 1390-1668kcal (25-30kcla/kg) Protein: Using Current wt Protein Calculated 56g (1g/kg) Fluid: ml 1390-1668ml (1ml/kcal) Nutritional Problem 1. Problem Problem Altered nutrition related laboratory values related to Etiology DM aeb Signs/Symptoms: glucose 508 Intervention/Recommendation Comments 1. Continue with current diet order. Clarify "CCHO" as " [id number]." Avg PO intake is inadequate, meeting 83% lwoer end kcal needs. 2. Provide nutrition edu DM as able, pt was soundly asleep during visit. 3. Monitor glucose, adjust insulin, glucose 508. Expected Outcomes/Goals Expected Outcomes/Goals 1. PO intake continue to meet at least 75% of estimated nutritinoal needs.
--- NOTE | 2017-05-19 15:32 | General Progress Note ---
Subjective - Review of Systems Events since last encounter: patient confused psychotic Objective - Results Result Diagrams: 05/16/17 07:30 Recent Labs: Laboratory Last Values Sodium 135 mEq/L (136-145) L 05/16/17 07:30 Potassium 3.5 mEq/L (3.5-5.1) 05/16/17 07:30 Chloride 104 mEq/L (98-107) 05/16/17 07:30 Carbon Dioxide 27.8 mEq/L (21.0-31.0) 05/16/17 07:30 Anion Gap 6.7 (7.0-16.0) L 05/16/17 07:30 BUN 13 mg/dL (7-25) 05/16/17 07:30 Creatinine 0.8 mg/dL (0.6-1.2) 05/16/17 07:30 Est GFR ( Amer) > 60.0 ml/min (>90) 05/16/17 07:30 Est GFR (Non-Af Amer) > 60.0 ml/min 05/16/17 07:30 BUN/Creatinine Ratio 16.3 05/16/17 07:30 Glucose 90 mg/dL (70-105) 05/16/17 07:30 POC Glucose 263 MG/DL (70 - 105) H 05/19/17 11:27 Calcium 8.2 mg/dL (8.6-10.3) L 05/16/17 07:30 Total Bilirubin 0.3 mg/dL (0.3-1.0) 05/16/17 07:30 AST 94 U/L (13-39) H 05/16/17 07:30 ALT 55 U/L (7-52) H 05/16/17 07:30 Alkaline Phosphatase 73 U/L (34-104) 05/16/17 07:30 Total Protein 4.7 gm/dL (6.0-8.3) L 05/16/17 07:30 Albumin 2.5 gm/dL (3.7-5.3) L 05/16/17 07:30 Globulin 2.2 gm/dL 05/16/17 07:30 Albumin/Globulin Ratio 1.1 (1.0-1.8) 05/16/17 07:30 - Physical Exam Vitals and I&O: Vital Signs Temp 98.8 F 05/19/17 06:43 Pulse 71 05/19/17 10:04 Resp 18 05/19/17 06:43 BP 110/65 05/19/17 10:04 Pulse Ox 98 05/19/17 06:43 Intake & Output 05/18/17 05/19/17 05/19/17 18:59 06:59 18:59 Intake Total 1800 120 Balance 1800 120 Intake: Oral 1800 120 Other: # Voids 4 3 # Bowel Movements 0 Active Medications: Current Medications Acetaminophen (Tylenol) 650 mg PO Q4H PRN PRN Reason: Mild-Moderate Pain or T >101 Stop: 07/09/17 22:29 Acetaminophen (Tylenol Extra Strength) 500 mg PO Q4H PRN PRN Reason: Pain (Moderate) Stop: 07/09/17 22:30 Al Hydrox/Mg Hydrox/Simethicone (Maalox) 30 ml PO Q4HR PRN PRN Reason: GI DISTRESS Stop: 07/09/17 22:31 Aripiprazole (Abilify) 5 mg PO HS DEVAUGHN PRN Reason: Protocol Stop: 07/18/17 20:59 Carvedilol (Coreg) 12.5 mg PO BID [facility]AUGHN Stop: 07/10/17 08:59 Last Admin: 05/19/17 10:04 Dose: 12.5 mg Duloxetine HCl (Cymbalta) 60 mg PO DAILY [facility]AUGHN PRN Reason: Protocol Stop: 07/10/17 08:59 Last Admin: 05/19/17 10:03 Dose: 60 mg Ergocalciferol (Vitamin D) 50,000 iu PO QWED [facility] Stop: 07/09/17 22:14 Last Admin: 05/18/17 16:55 Dose: Not Given Ferrous Sulfate (Iron) 325 mg PO DAILY [facility] Stop: 07/10/17 08:59 Last Admin: 05/19/17 10:04 Dose: 325 mg Fish Oil ([place] 3) 1,000 mg PO DAILY [facility]AUGHN Stop: 07/10/17 08:59 Last Admin: 05/19/17 10:04 Dose: 1,000 mg Gabapentin (Neurontin) 800 mg PO Q8HR [facility]AUGHN Stop: 07/10/17 04:59 Last Admin: 05/19/17 12:34 Dose: 400 mg Insulin Aspart (Novolog Insulin Sliding Scale) 0 units SUBQ ACHS DEVAUGHN PRN Reason: Protocol Stop: 07/10/17 16:29 Last Admin: 05/19/17 12:05 Dose: 6 units Insulin Detemir (Levemir Insulin) 15 units SUBQ BID@0800,2000 DEVAUGHN PRN Reason: Protocol Stop: 07/14/17 20:59 Last Admin: 05/19/17 08:13 Dose: 15 units Lorazepam (Ativan) 1 mg PO Q4HR PRN; Protocol PRN Reason: Anxiety Stop: 07/17/17 10:33 Magnesium Hydroxide (Milk Of Magnesia) 30 ml PO HS PRN PRN Reason: Constipation Stop: 07/09/17 22:15 Mirtazapine (Remeron) 15 mg PO HS DEVAUGHN PRN Reason: Protocol Stop: 07/10/17 20:59 Last Admin: 05/18/17 20:55 Dose: 15 mg Pantoprazole Sodium (Protonix) 40 mg PO QDAC [facility]AUGHN Stop: 07/10/17 07:29 Last Admin: 05/19/17 06:37 Dose: 40 mg Trazodone HCl (Desyrel) 100 mg PO HS DEVAUGHN PRN Reason: Protocol Stop: 07/10/17 20:59 Last Admin: 05/18/17 20:55 Dose: 100 mg General: No acute distress HEENT: Atraumatic, PERRLA Cardiovascular: Regular rate, Normal S1 Lungs: Clear to auscultation Abdomen: Bowel sounds Assessment/Plan - Problem List Patient Problems: All Active Problems Dehydration (Acute) E86.0 Diabetes (Acute) E11.9 Hypokalemia (Acute) E87.6 Hyponatremia (Acute) E87.1 h/o schizophrenia (Acute) history of psychotic disorder (Acute) history of severe depression (Acute) - Assessment Assessment: Dehydration (Acute) E86.0 Diabetes (Acute) E11.9 Hypokalemia (Acute) E87.6 Hyponatremia (Acute) E87.1 h/o schizophrenia (Acute) history of psychotic disorder (Acute) history of severe depression (Acute) - Plan Plan: as per psych as problems arise Nutritional Asmnt/Malnutr-PDOC - Dietary Evaluation Malnutrition Findings (Please click <Entered> for more info): Nutritional Asmnt/Malnutrition Start: 05/12/17 10: 51 Text: Status: Complete Freq: Document 05/12/17 10:51 GSUN (Rec: 05/12/17 11:17 [email or web address]) Nutritional Asmnt/Malnutrition Patient General Information Nutritional Screening Moderate Risk Screening Diagnosis Schizoaffective disorder bipolar type with psychotic features Pertinent Medical Hx/Surgical Hx DM, HTN, esophageal reflux disease, severe hypokalemia, dementia Subjective Information 61 year old female, transfered from [facility]. Pt was soundly asleep during visit, commercial underwriter visited twice attempted to wake pt, unsuccessful. Limited physical assessment, no severe muslce fat wasting noted. Avg 67% of meals since adm, meeting 83% of lower end kcal needs. Per [facility] staff, pt was requesting for snacks and ice cream. Few teeth missing. Current Diet Order/ Nutrition Support Low sodium, CCHO Pertinent Medications Vitamin D, Iron, [place] 3, Novolog, Levemir, MOM, Remeron , Protonix Pertinent Labs 05/11: glucose 508H Nutritional Hx/Data Height 1.68 m Height (Calculated Centimeters) 167.6 Current Weight (lbs) 55.474 kg Weight (Calculated Kilograms) 55.5 Weight (Calculated Grams) 49694.3 [place] Body Weight 130 Weight Status Approriate GI Symptoms Food Allergies No Skin Integrity/Comment: Carlos 20. Skin intact. Current %PO Fair (50-74%) Estimated Nutritional Goals BEE in Kcals: Using Current wt Calories/Kcals/Kg CBW 122.3lb/55.6kg Kcals Calculated 1390-1668kcal (25-30kcla/kg) Protein: Using Current wt Protein Calculated 56g (1g/kg) Fluid: ml 1390-1668ml (1ml/kcal) Nutritional Problem 1. Problem Problem Altered nutrition related laboratory values related to Etiology DM aeb Signs/Symptoms: glucose 508 Intervention/Recommendation Comments 1. Continue with current diet order. Clarify "CCHO" as " [id number]." Avg PO intake is inadequate, meeting 83% lwoer end kcal needs. 2. Provide nutrition edu DM as able, pt was soundly asleep during visit. 3. Monitor glucose, adjust insulin, glucose 508. Expected Outcomes/Goals Expected Outcomes/Goals 1. PO intake continue to meet at least 75% of estimated nutritinoal needs.
--- NOTE | 2017-05-20 01:06 | Progress Notes ---
DATE: 05/19/2017 PSYCHIATRIC PROGRESS NOTE SUBJECTIVE: Chart reviewed. The patient interviewed. Also discussed the patient's condition with the staff and reviewed the records and labs. The patient remains isolative and she is still withdrawn with minimum interactions with others. The patient also still has episodes of resisting care and refusing help from staff. She also confused and forgetful and unpredictable. The patient also is labile and has episodes of anger basically because of her confusion and her forgetfulness. Otherwise, the patient is compliant, was taking her medications with no side effects of medications. ASSESSMENT: The patient is still confused and is still agitated. TREATMENT PLAN: We will continue to monitor her behavior and her condition closely. Also, we will decrease the Abilify to 5 mg and we will change it to be given at bedtime because the patient seems to be slightly sedated. We will also continue to monitor her behavior and her condition closely. JOB# [id number]
[2017-05-20] MEDS: Pantoprazole 40 mg EC Tab PO SCH (06:41)
[2017-05-20] MEDS: INSULIN ASPART SLIDING SCALE 100 UNITS/ML UNIT SUBQ SCH ×4 (06:41→21:56)
[2017-05-20] MEDS: Insulin Detemir 100 units/mL 10mL Vial SUBQ SCH ×2 (08:08→21:30)
[2017-05-20] MEDS: Fish Oil 1,000 MG SGL PO SCH (08:09)
[2017-05-20] MEDS: Ferrous Sulfate 325 MG TAB PO SCH (08:09)
--- NOTE | 2017-05-20 22:04 | Internal Medicine Prog Note ---
Internal Medicine Subjective - Subjective Service Date: 05/20/17 Patient is:: awake Per staff patient has:: no adverse event, tolerating meds Internal Medicine Objective - Results Result Diagrams: 05/16/17 07:30 Recent Labs: Laboratory Last Values Sodium 135 mEq/L (136-145) L 05/16/17 07:30 Potassium 3.5 mEq/L (3.5-5.1) 05/16/17 07:30 Chloride 104 mEq/L (98-107) 05/16/17 07:30 Carbon Dioxide 27.8 mEq/L (21.0-31.0) 05/16/17 07:30 Anion Gap 6.7 (7.0-16.0) L 05/16/17 07:30 BUN 13 mg/dL (7-25) 05/16/17 07:30 Creatinine 0.8 mg/dL (0.6-1.2) 05/16/17 07:30 Est GFR ( Amer) > 60.0 ml/min (>90) 05/16/17 07:30 Est GFR (Non-Af Amer) > 60.0 ml/min 05/16/17 07:30 BUN/Creatinine Ratio 16.3 05/16/17 07:30 Glucose 90 mg/dL (70-105) 05/16/17 07:30 POC Glucose 93 MG/DL (70 - 105) 05/20/17 20:15 Calcium 8.2 mg/dL (8.6-10.3) L 05/16/17 07:30 Total Bilirubin 0.3 mg/dL (0.3-1.0) 05/16/17 07:30 AST 94 U/L (13-39) H 05/16/17 07:30 ALT 55 U/L (7-52) H 05/16/17 07:30 Alkaline Phosphatase 73 U/L (34-104) 05/16/17 07:30 Total Protein 4.7 gm/dL (6.0-8.3) L 05/16/17 07:30 Albumin 2.5 gm/dL (3.7-5.3) L 05/16/17 07:30 Globulin 2.2 gm/dL 05/16/17 07:30 Albumin/Globulin Ratio 1.1 (1.0-1.8) 05/16/17 07:30 - Physical Exam Vitals and I&O: Vital Signs Temp 98.1 F 05/20/17 07:05 Pulse 63 05/20/17 08:10 Resp 19 05/20/17 07:05 BP 116/68 05/20/17 08:10 Pulse Ox 97 05/20/17 07:05 Intake & Output 05/20/17 05/20/17 05/21/17 06:59 18:59 06:59 Intake Total 120 Balance 120 Intake: Oral 120 Other: # Voids 3 Active Medications: Current Medications Acetaminophen (Tylenol) 650 mg PO Q4H PRN PRN Reason: Mild-Moderate Pain or T >101 Stop: 07/09/17 22:29 Acetaminophen (Tylenol Extra Strength) 500 mg PO Q4H PRN PRN Reason: Pain (Moderate) Stop: 07/09/17 22:30 Al Hydrox/Mg Hydrox/Simethicone (Maalox) 30 ml PO Q4HR PRN PRN Reason: GI DISTRESS Stop: 07/09/17 22:31 Aripiprazole (Abilify) 5 mg PO HS DEVAUGHN PRN Reason: Protocol Stop: 07/18/17 20:59 Last Admin: 05/20/17 21:32 Dose: 5 mg Carvedilol (Coreg) 12.5 mg PO BID [facility] Stop: 07/10/17 08:59 Last Admin: 05/20/17 08:10 Dose: Not Given Duloxetine HCl (Cymbalta) 60 mg PO DAILY DEVAUGHN PRN Reason: Protocol Stop: 07/10/17 08:59 Last Admin: 05/20/17 08:09 Dose: 60 mg Ergocalciferol (Vitamin D) 50,000 iu PO QWED [facility] Stop: 07/09/17 22:14 Last Admin: 05/18/17 16:55 Dose: Not Given Ferrous Sulfate (Iron) 325 mg PO DAILY [facility] Stop: 07/10/17 08:59 Last Admin: 05/20/17 08:09 Dose: Not Given Fish Oil ([place] 3) 1,000 mg PO DAILY [facility] Stop: 07/10/17 08:59 Last Admin: 05/20/17 08:09 Dose: Not Given Gabapentin (Neurontin) 800 mg PO Q8HR [facility] Stop: 07/10/17 04:59 Last Admin: 05/20/17 21:30 Dose: 800 mg Insulin Aspart (Novolog Insulin Sliding Scale) 0 units SUBQ ACHS DEVAUGHN PRN Reason: Protocol Stop: 07/10/17 16:29 Last Admin: 05/20/17 21:56 Dose: Not Given Insulin Detemir (Levemir Insulin) 15 units SUBQ BID@0800,2000 DEVAUGHN PRN Reason: Protocol Stop: 07/14/17 20:59 Last Admin: 05/20/17 21:30 Dose: 15 units Lorazepam (Ativan) 1 mg PO Q4HR PRN; Protocol PRN Reason: Anxiety Stop: 07/17/17 10:33 Magnesium Hydroxide (Milk Of Magnesia) 30 ml PO HS PRN PRN Reason: Constipation Stop: 07/09/17 22:15 Mirtazapine (Remeron) 15 mg PO HS DEVAUGHN PRN Reason: Protocol Stop: 07/10/17 20:59 Last Admin: 05/20/17 21:31 Dose: 15 mg Pantoprazole Sodium (Protonix) 40 mg PO QDAC [facility]AUGHN Stop: 07/10/17 07:29 Last Admin: 05/20/17 06:41 Dose: 40 mg Trazodone HCl (Desyrel) 100 mg PO HS DEVAUGHN PRN Reason: Protocol Stop: 07/10/17 20:59 Last Admin: 05/20/17 21:31 Dose: 100 mg General: alert HEENT: NC/AT, PERRLA Lungs: CTAB Cardiovascular: RRR, Normal S1, Normal S2 Abdomen: soft, non-tender, non-distended, positive bowel sound Neurological: no change Internal Medicine Assmt/Plan - Assessment Assessment: Dehydration (Acute) E86.0 Diabetes (Acute) E11.9 Hypokalemia (Acute) E87.6 Hyponatremia (Acute) E87.1 h/o schizophrenia (Acute) history of psychotic disorder (Acute) history of severe depression (Acute) - Plan Plan: as per psych as problems arise Nutritional Asmnt/Malnutr-PDOC - Dietary Evaluation Malnutrition Findings (Please click <Entered> for more info): Nutritional Asmnt/Malnutrition Start: 05/12/17 10: 51 Text: Status: Complete Freq: Document 05/12/17 10:51 GSUN (Rec: 05/12/17 11:17 GSUN [email or web address]) Nutritional Asmnt/Malnutrition Patient General Information Nutritional Screening Moderate Risk Screening Diagnosis Schizoaffective disorder bipolar type with psychotic features Pertinent Medical Hx/Surgical Hx DM, HTN, esophageal reflux disease, severe hypokalemia, dementia Subjective Information 61 year old female, transfered from [facility]. Pt was soundly asleep during visit, staff writer visited twice attempted to wake pt, unsuccessful. Limited physical assessment, no severe muslce fat wasting noted. Avg 67% of meals since adm, meeting 83% of lower end kcal needs. Per [facility] staff, pt was requesting for snacks and ice cream. Few teeth missing. Current Diet Order/ Nutrition Support Low sodium, CCHO Pertinent Medications Vitamin D, Iron, [place] 3, Novolog, Levemir, MOM, Remeron , Protonix Pertinent Labs 05/11: glucose 508H Nutritional Hx/Data Height 1.68 m Height (Calculated Centimeters) 167.6 Current Weight (lbs) 55.474 kg Weight (Calculated Kilograms) 55.5 Weight (Calculated Grams) 70437.3 [place] Body Weight 130 Weight Status Approriate GI Symptoms Food Allergies No Skin Integrity/Comment: Carlos 20. Skin intact. Current %PO Fair (50-74%) Estimated Nutritional Goals BEE in Kcals: Using Current wt Calories/Kcals/Kg CBW 122.3lb/55.6kg Kcals Calculated 1390-1668kcal (25-30kcla/kg) Protein: Using Current wt Protein Calculated 56g (1g/kg) Fluid: ml 1390-1668ml (1ml/kcal) Nutritional Problem 1. Problem Problem Altered nutrition related laboratory values related to Etiology DM aeb Signs/Symptoms: glucose 508 Intervention/Recommendation Comments 1. Continue with current diet order. Clarify "CCHO" as " [id number]." Avg PO intake is inadequate, meeting 83% lwoer end kcal needs. 2. Provide nutrition edu DM as able, pt was soundly asleep during visit. 3. Monitor glucose, adjust insulin, glucose 508. Expected Outcomes/Goals Expected Outcomes/Goals 1. PO intake continue to meet at least 75% of estimated nutritinoal needs.
--- NOTE | 2017-05-20 22:04 | Internal Medicine Prog Note ---
Internal Medicine Subjective - Subjective Service Date: 05/20/17 Patient is:: awake Per staff patient has:: no adverse event, tolerating meds Internal Medicine Objective - Results Result Diagrams: 05/16/17 07:30 Recent Labs: Laboratory Last Values Sodium 135 mEq/L (136-145) L 05/16/17 07:30 Potassium 3.5 mEq/L (3.5-5.1) 05/16/17 07:30 Chloride 104 mEq/L (98-107) 05/16/17 07:30 Carbon Dioxide 27.8 mEq/L (21.0-31.0) 05/16/17 07:30 Anion Gap 6.7 (7.0-16.0) L 05/16/17 07:30 BUN 13 mg/dL (7-25) 05/16/17 07:30 Creatinine 0.8 mg/dL (0.6-1.2) 05/16/17 07:30 Est GFR ( Amer) > 60.0 ml/min (>90) 05/16/17 07:30 Est GFR (Non-Af Amer) > 60.0 ml/min 05/16/17 07:30 BUN/Creatinine Ratio 16.3 05/16/17 07:30 Glucose 90 mg/dL (70-105) 05/16/17 07:30 POC Glucose 93 MG/DL (70 - 105) 05/20/17 20:15 Calcium 8.2 mg/dL (8.6-10.3) L 05/16/17 07:30 Total Bilirubin 0.3 mg/dL (0.3-1.0) 05/16/17 07:30 AST 94 U/L (13-39) H 05/16/17 07:30 ALT 55 U/L (7-52) H 05/16/17 07:30 Alkaline Phosphatase 73 U/L (34-104) 05/16/17 07:30 Total Protein 4.7 gm/dL (6.0-8.3) L 05/16/17 07:30 Albumin 2.5 gm/dL (3.7-5.3) L 05/16/17 07:30 Globulin 2.2 gm/dL 05/16/17 07:30 Albumin/Globulin Ratio 1.1 (1.0-1.8) 05/16/17 07:30 - Physical Exam Vitals and I&O: Vital Signs Temp 98.1 F 05/20/17 07:05 Pulse 63 05/20/17 08:10 Resp 19 05/20/17 07:05 BP 116/68 05/20/17 08:10 Pulse Ox 97 05/20/17 07:05 Intake & Output 05/20/17 05/20/17 05/21/17 06:59 18:59 06:59 Intake Total 120 Balance 120 Intake: Oral 120 Other: # Voids 3 Active Medications: Current Medications Acetaminophen (Tylenol) 650 mg PO Q4H PRN PRN Reason: Mild-Moderate Pain or T >101 Stop: 07/09/17 22:29 Acetaminophen (Tylenol Extra Strength) 500 mg PO Q4H PRN PRN Reason: Pain (Moderate) Stop: 07/09/17 22:30 Al Hydrox/Mg Hydrox/Simethicone (Maalox) 30 ml PO Q4HR PRN PRN Reason: GI DISTRESS Stop: 07/09/17 22:31 Aripiprazole (Abilify) 5 mg PO HS DEVAUGHN PRN Reason: Protocol Stop: 07/18/17 20:59 Last Admin: 05/20/17 21:32 Dose: 5 mg Carvedilol (Coreg) 12.5 mg PO BID [facility] Stop: 07/10/17 08:59 Last Admin: 05/20/17 08:10 Dose: Not Given Duloxetine HCl (Cymbalta) 60 mg PO DAILY DEVAUGHN PRN Reason: Protocol Stop: 07/10/17 08:59 Last Admin: 05/20/17 08:09 Dose: 60 mg Ergocalciferol (Vitamin D) 50,000 iu PO QWED [facility] Stop: 07/09/17 22:14 Last Admin: 05/18/17 16:55 Dose: Not Given Ferrous Sulfate (Iron) 325 mg PO DAILY [facility] Stop: 07/10/17 08:59 Last Admin: 05/20/17 08:09 Dose: Not Given Fish Oil ([place] 3) 1,000 mg PO DAILY [facility] Stop: 07/10/17 08:59 Last Admin: 05/20/17 08:09 Dose: Not Given Gabapentin (Neurontin) 800 mg PO Q8HR [facility] Stop: 07/10/17 04:59 Last Admin: 05/20/17 21:30 Dose: 800 mg Insulin Aspart (Novolog Insulin Sliding Scale) 0 units SUBQ ACHS DEVAUGHN PRN Reason: Protocol Stop: 07/10/17 16:29 Last Admin: 05/20/17 21:56 Dose: Not Given Insulin Detemir (Levemir Insulin) 15 units SUBQ BID@0800,2000 DEVAUGHN PRN Reason: Protocol Stop: 07/14/17 20:59 Last Admin: 05/20/17 21:30 Dose: 15 units Lorazepam (Ativan) 1 mg PO Q4HR PRN; Protocol PRN Reason: Anxiety Stop: 07/17/17 10:33 Magnesium Hydroxide (Milk Of Magnesia) 30 ml PO HS PRN PRN Reason: Constipation Stop: 07/09/17 22:15 Mirtazapine (Remeron) 15 mg PO HS DEVAUGHN PRN Reason: Protocol Stop: 07/10/17 20:59 Last Admin: 05/20/17 21:31 Dose: 15 mg Pantoprazole Sodium (Protonix) 40 mg PO QDAC [facility]GHN Stop: 07/10/17 07:29 Last Admin: 05/20/17 06:41 Dose: 40 mg Trazodone HCl (Desyrel) 100 mg PO HS DEVAUGHN PRN Reason: Protocol Stop: 07/10/17 20:59 Last Admin: 05/20/17 21:31 Dose: 100 mg General: alert HEENT: NC/AT, PERRLA Lungs: CTAB Cardiovascular: RRR, Normal S1, Normal S2 Abdomen: soft, non-tender, non-distended, positive bowel sound Neurological: no change Internal Medicine Assmt/Plan - Assessment Assessment: Dehydration (Acute) E86.0 Diabetes (Acute) E11.9 Hypokalemia (Acute) E87.6 Hyponatremia (Acute) E87.1 h/o schizophrenia (Acute) history of psychotic disorder (Acute) history of severe depression (Acute) - Plan Plan: as per psych as problems arise Nutritional Asmnt/Malnutr-PDOC - Dietary Evaluation Malnutrition Findings (Please click <Entered> for more info): Nutritional Asmnt/Malnutrition Start: 05/12/17 10: 51 Text: Status: Complete Freq: Document 05/12/17 10:51 GSUN (Rec: 05/12/17 11:17 GSUN [email or web address]) Nutritional Asmnt/Malnutrition Patient General Information Nutritional Screening Moderate Risk Screening Diagnosis Schizoaffective disorder bipolar type with psychotic features Pertinent Medical Hx/Surgical Hx DM, HTN, esophageal reflux disease, severe hypokalemia, dementia Subjective Information 61 year old female, transfered from [facility]. Pt was soundly asleep during visit, business writer visited twice attempted to wake pt, unsuccessful. Limited physical assessment, no severe muslce fat wasting noted. Avg 67% of meals since adm, meeting 83% of lower end kcal needs. Per [facility] staff, pt was requesting for snacks and ice cream. Few teeth missing. Current Diet Order/ Nutrition Support Low sodium, CCHO Pertinent Medications Vitamin D, Iron, [place] 3, Novolog, Levemir, MOM, Remeron , Protonix Pertinent Labs 05/11: glucose 508H Nutritional Hx/Data Height 1.68 m Height (Calculated Centimeters) 167.6 Current Weight (lbs) 55.474 kg Weight (Calculated Kilograms) 55.5 Weight (Calculated Grams) 37549.3 [place] Body Weight 130 Weight Status Approriate GI Symptoms Food Allergies No Skin Integrity/Comment: Carlos 20. Skin intact. Current %PO Fair (50-74%) Estimated Nutritional Goals BEE in Kcals: Using Current wt Calories/Kcals/Kg CBW 122.3lb/55.6kg Kcals Calculated 1390-1668kcal (25-30kcla/kg) Protein: Using Current wt Protein Calculated 56g (1g/kg) Fluid: ml 1390-1668ml (1ml/kcal) Nutritional Problem 1. Problem Problem Altered nutrition related laboratory values related to Etiology DM aeb Signs/Symptoms: glucose 508 Intervention/Recommendation Comments 1. Continue with current diet order. Clarify "CCHO" as " [id number]." Avg PO intake is inadequate, meeting 83% lwoer end kcal needs. 2. Provide nutrition edu DM as able, pt was soundly asleep during visit. 3. Monitor glucose, adjust insulin, glucose 508. Expected Outcomes/Goals Expected Outcomes/Goals 1. PO intake continue to meet at least 75% of estimated nutritinoal needs.
--- NOTE | 2017-05-20 22:04 | Internal Medicine Prog Note ---
Internal Medicine Subjective - Subjective Service Date: 05/20/17 Patient is:: awake Per staff patient has:: no adverse event, tolerating meds Internal Medicine Objective - Results Result Diagrams: 05/16/17 07:30 Recent Labs: Laboratory Last Values Sodium 135 mEq/L (136-145) L 05/16/17 07:30 Potassium 3.5 mEq/L (3.5-5.1) 05/16/17 07:30 Chloride 104 mEq/L (98-107) 05/16/17 07:30 Carbon Dioxide 27.8 mEq/L (21.0-31.0) 05/16/17 07:30 Anion Gap 6.7 (7.0-16.0) L 05/16/17 07:30 BUN 13 mg/dL (7-25) 05/16/17 07:30 Creatinine 0.8 mg/dL (0.6-1.2) 05/16/17 07:30 Est GFR ( Amer) > 60.0 ml/min (>90) 05/16/17 07:30 Est GFR (Non-Af Amer) > 60.0 ml/min 05/16/17 07:30 BUN/Creatinine Ratio 16.3 05/16/17 07:30 Glucose 90 mg/dL (70-105) 05/16/17 07:30 POC Glucose 93 MG/DL (70 - 105) 05/20/17 20:15 Calcium 8.2 mg/dL (8.6-10.3) L 05/16/17 07:30 Total Bilirubin 0.3 mg/dL (0.3-1.0) 05/16/17 07:30 AST 94 U/L (13-39) H 05/16/17 07:30 ALT 55 U/L (7-52) H 05/16/17 07:30 Alkaline Phosphatase 73 U/L (34-104) 05/16/17 07:30 Total Protein 4.7 gm/dL (6.0-8.3) L 05/16/17 07:30 Albumin 2.5 gm/dL (3.7-5.3) L 05/16/17 07:30 Globulin 2.2 gm/dL 05/16/17 07:30 Albumin/Globulin Ratio 1.1 (1.0-1.8) 05/16/17 07:30 - Physical Exam Vitals and I&O: Vital Signs Temp 98.1 F 05/20/17 07:05 Pulse 63 05/20/17 08:10 Resp 19 05/20/17 07:05 BP 116/68 05/20/17 08:10 Pulse Ox 97 05/20/17 07:05 Intake & Output 05/20/17 05/20/17 05/21/17 06:59 18:59 06:59 Intake Total 120 Balance 120 Intake: Oral 120 Other: # Voids 3 Active Medications: Current Medications Acetaminophen (Tylenol) 650 mg PO Q4H PRN PRN Reason: Mild-Moderate Pain or T >101 Stop: 07/09/17 22:29 Acetaminophen (Tylenol Extra Strength) 500 mg PO Q4H PRN PRN Reason: Pain (Moderate) Stop: 07/09/17 22:30 Al Hydrox/Mg Hydrox/Simethicone (Maalox) 30 ml PO Q4HR PRN PRN Reason: GI DISTRESS Stop: 07/09/17 22:31 Aripiprazole (Abilify) 5 mg PO HS [facility]AUGHN PRN Reason: Protocol Stop: 07/18/17 20:59 Last Admin: 05/20/17 21:32 Dose: 5 mg Carvedilol (Coreg) 12.5 mg PO BID [facility] Stop: 07/10/17 08:59 Last Admin: 05/20/17 08:10 Dose: Not Given Duloxetine HCl (Cymbalta) 60 mg PO DAILY [facility]N PRN Reason: Protocol Stop: 07/10/17 08:59 Last Admin: 05/20/17 08:09 Dose: 60 mg Ergocalciferol (Vitamin D) 50,000 iu PO QWED [facility] Stop: 07/09/17 22:14 Last Admin: 05/18/17 16:55 Dose: Not Given Ferrous Sulfate (Iron) 325 mg PO DAILY [facility] Stop: 07/10/17 08:59 Last Admin: 05/20/17 08:09 Dose: Not Given Fish Oil ([place] 3) 1,000 mg PO DAILY [facility] Stop: 07/10/17 08:59 Last Admin: 05/20/17 08:09 Dose: Not Given Gabapentin (Neurontin) 800 mg PO Q8HR [facility] Stop: 07/10/17 04:59 Last Admin: 05/20/17 21:30 Dose: 800 mg Insulin Aspart (Novolog Insulin Sliding Scale) 0 units SUBQ ACHS [facility]N PRN Reason: Protocol Stop: 07/10/17 16:29 Last Admin: 05/20/17 21:56 Dose: Not Given Insulin Detemir (Levemir Insulin) 15 units SUBQ BID@0800,2000 DEVAUGHN PRN Reason: Protocol Stop: 07/14/17 20:59 Last Admin: 05/20/17 21:30 Dose: 15 units Lorazepam (Ativan) 1 mg PO Q4HR PRN; Protocol PRN Reason: Anxiety Stop: 07/17/17 10:33 Magnesium Hydroxide (Milk Of Magnesia) 30 ml PO HS PRN PRN Reason: Constipation Stop: 07/09/17 22:15 Mirtazapine (Remeron) 15 mg PO HS [facility]AUGHN PRN Reason: Protocol Stop: 07/10/17 20:59 Last Admin: 05/20/17 21:31 Dose: 15 mg Pantoprazole Sodium (Protonix) 40 mg PO QDAC [facility] Stop: 07/10/17 07:29 Last Admin: 05/20/17 06:41 Dose: 40 mg Trazodone HCl (Desyrel) 100 mg PO HS [facility]AUGHN PRN Reason: Protocol Stop: 07/10/17 20:59 Last Admin: 05/20/17 21:31 Dose: 100 mg General: alert HEENT: NC/AT, PERRLA Lungs: CTAB Cardiovascular: RRR, Normal S1, Normal S2 Abdomen: soft, non-tender, non-distended, positive bowel sound Neurological: no change Internal Medicine Assmt/Plan - Assessment Assessment: Dehydration (Acute) E86.0 Diabetes (Acute) E11.9 Hypokalemia (Acute) E87.6 Hyponatremia (Acute) E87.1 h/o schizophrenia (Acute) history of psychotic disorder (Acute) history of severe depression (Acute) - Plan Plan: as per psych as problems arise Nutritional Asmnt/Malnutr-PDOC - Dietary Evaluation Malnutrition Findings (Please click <Entered> for more info): Nutritional Asmnt/Malnutrition Start: 05/12/17 10: 51 Text: Status: Complete Freq: Document 05/12/17 10:51 GSUN (Rec: 05/12/17 11:17 GSUN [email or web address]) Nutritional Asmnt/Malnutrition Patient General Information Nutritional Screening Moderate Risk Screening Diagnosis Schizoaffective disorder bipolar type with psychotic features Pertinent Medical Hx/Surgical Hx DM, HTN, esophageal reflux disease, severe hypokalemia, dementia Subjective Information 61 year old female, transfered from [facility]. Pt was soundly asleep during visit, health science writer visited twice attempted to wake pt, unsuccessful. Limited physical assessment, no severe muslce fat wasting noted. Avg 67% of meals since adm, meeting 83% of lower end kcal needs. Per [facility] staff, pt was requesting for snacks and ice cream. Few teeth missing. Current Diet Order/ Nutrition Support Low sodium, CCHO Pertinent Medications Vitamin D, Iron, [place] 3, Novolog, Levemir, MOM, Remeron , Protonix Pertinent Labs 05/11: glucose 508H Nutritional Hx/Data Height 1.68 m Height (Calculated Centimeters) 167.6 Current Weight (lbs) 55.474 kg Weight (Calculated Kilograms) 55.5 Weight (Calculated Grams) 15711.3 [place] Body Weight 130 Weight Status Approriate GI Symptoms Food Allergies No Skin Integrity/Comment: Carlos 20. Skin intact. Current %PO Fair (50-74%) Estimated Nutritional Goals BEE in Kcals: Using Current wt Calories/Kcals/Kg CBW 122.3lb/55.6kg Kcals Calculated 1390-1668kcal (25-30kcla/kg) Protein: Using Current wt Protein Calculated 56g (1g/kg) Fluid: ml 1390-1668ml (1ml/kcal) Nutritional Problem 1. Problem Problem Altered nutrition related laboratory values related to Etiology DM aeb Signs/Symptoms: glucose 508 Intervention/Recommendation Comments 1. Continue with current diet order. Clarify "CCHO" as " [id number]." Avg PO intake is inadequate, meeting 83% lwoer end kcal needs. 2. Provide nutrition edu DM as able, pt was soundly asleep during visit. 3. Monitor glucose, adjust insulin, glucose 508. Expected Outcomes/Goals Expected Outcomes/Goals 1. PO intake continue to meet at least 75% of estimated nutritinoal needs.
[2017-05-21] MEDS: Pantoprazole 40 mg EC Tab PO SCH (06:34)
[2017-05-21] MEDS: INSULIN ASPART SLIDING SCALE 100 UNITS/ML UNIT SUBQ SCH ×4 (06:34→21:14)
[2017-05-21] MEDS: Ferrous Sulfate 325 MG TAB PO SCH (08:57)
[2017-05-21] MEDS: Fish Oil 1,000 MG SGL PO SCH (08:57)
[2017-05-21] MEDS: Insulin Detemir 100 units/mL 10mL Vial SUBQ SCH ×2 (08:59→20:00)
--- NOTE | 2017-05-21 18:25 | Progress Notes ---
DATE: 05/20/2017 SUBJECTIVE: Chart reviewed and the patient interviewed. Also, discussed the patient's condition with the staff and reviewed records and labs. The patient continued to be confused and she is still an irritable and angry mood. The patient also is still staying in bed by herself and interacting minimally with others. During my interview, the patient was complaining of abdominal pain. She still has mood swings and is restless at times. She also at times demanding and the other times wants to be left alone. Otherwise, the patient is compliant with taking Abilify and she denies any side effects of Abilify and also Cymbalta. We will continue to work on her ineffective coping as well as agitation and we will continue to follow up. JOB# [id number]
--- NOTE | 2017-05-22 00:34 | Progress Notes ---
DATE: SUBJECTIVE: The patient is currently in the hospital, confused, forgetful, believing that she was living at her mother's home, but she was actually at the convalescent home, paranoid, resistive to care. Staff unable to really care for her needs, confused, forgetful, labile, unpredictable, suspicious, still convinced that she is going to go to her mother's house. ASSESSMENT: The patient remains symptomatic, still confused, forgetful, delusional. PLAN: We will continue to monitor. Medications were reviewed. The patient is eating fairly well, sleeping about 8 hours. We will monitor and follow up. Her symptoms are ongoing. JOB# [id number]
[2017-05-22] MEDS: INSULIN ASPART SLIDING SCALE 100 UNITS/ML UNIT SUBQ SCH ×4 (06:55→21:40)
[2017-05-22] MEDS: Pantoprazole 40 mg EC Tab PO SCH (07:00)
--- NOTE | 2017-05-22 07:09 | Progress Notes ---
DATE: 05/21/2017 SUBJECTIVE: The patient was seen in her room, does not want to engage with discussion. According to the staff, the patient still continues to isolate self. The patient has some episodes of over aggressive behaviors; otherwise, the patient appears to be comfortable, in no acute distress. OBJECTIVE: VITAL SIGNS: Temperature 98.1, heart rate 63, blood pressure 116/68, respirations of 19, and saturations 97% on room air. HEENT: Head is atraumatic and normocephalic. Eyes: Bilateral conjunctivae are clear. Bilateral pupils are equally round and reactive. NECK: Supple. No JVD. CARDIOVASCULAR: S1 and S2, without murmur. PULMONARY: Clear to auscultation. GASTROINTESTINAL: Soft and nontender without guarding. Positive bowel sounds. MUSCULOSKELETAL: No clubbing and no cyanosis noted. ASSESSMENT: 1. Dementia. 2. Hypertension. 3. Diabetes mellitus. 4. Osteoarthritis. 5. Gastroesophageal reflux disease. PLAN: We will keep the patient inpatient in Psychiatric Unit. We will follow up with a psychiatrist to monitor the patient's condition and behavior. Treatment plans were discussed with the patient's nurse. Treatment plans were discussed with Dr. Stroud. JOB# [id number]
--- NOTE | 2017-05-22 07:21 | General Progress Note ---
Subjective - Review of Systems Events since last encounter: Patient in no acute distress keeps to self Objective - Results Result Diagrams: 05/16/17 07:30 Recent Labs: Laboratory Last Values Sodium 135 mEq/L (136-145) L 05/16/17 07:30 Potassium 3.5 mEq/L (3.5-5.1) 05/16/17 07:30 Chloride 104 mEq/L (98-107) 05/16/17 07:30 Carbon Dioxide 27.8 mEq/L (21.0-31.0) 05/16/17 07:30 Anion Gap 6.7 (7.0-16.0) L 05/16/17 07:30 BUN 13 mg/dL (7-25) 05/16/17 07:30 Creatinine 0.8 mg/dL (0.6-1.2) 05/16/17 07:30 Est GFR ( Amer) > 60.0 ml/min (>90) 05/16/17 07:30 Est GFR (Non-Af Amer) > 60.0 ml/min 05/16/17 07:30 BUN/Creatinine Ratio 16.3 05/16/17 07:30 Glucose 90 mg/dL (70-105) 05/16/17 07:30 POC Glucose 68 MG/DL (70 - 105) L 05/22/17 06:52 Calcium 8.2 mg/dL (8.6-10.3) L 05/16/17 07:30 Total Bilirubin 0.3 mg/dL (0.3-1.0) 05/16/17 07:30 AST 94 U/L (13-39) H 05/16/17 07:30 ALT 55 U/L (7-52) H 05/16/17 07:30 Alkaline Phosphatase 73 U/L (34-104) 05/16/17 07:30 Total Protein 4.7 gm/dL (6.0-8.3) L 05/16/17 07:30 Albumin 2.5 gm/dL (3.7-5.3) L 05/16/17 07:30 Globulin 2.2 gm/dL 05/16/17 07:30 Albumin/Globulin Ratio 1.1 (1.0-1.8) 05/16/17 07:30 - Physical Exam Vitals and I&O: Vital Signs Temp 97.9 F 05/22/17 06:47 Pulse 64 05/22/17 06:47 Resp 18 05/22/17 06:47 BP 122/53 05/22/17 06:47 Pulse Ox 97 05/22/17 06:47 Intake & Output 05/21/17 05/22/17 05/22/17 18:59 06:59 18:59 Intake Total 1200 240 Balance 1200 240 Intake: Oral 1200 240 Other: # Voids 1 # Bowel Movements 1 Active Medications: Current Medications Acetaminophen (Tylenol) 650 mg PO Q4H PRN PRN Reason: Mild-Moderate Pain or T >101 Stop: 07/09/17 22:29 Acetaminophen (Tylenol Extra Strength) 500 mg PO Q4H PRN PRN Reason: Pain (Moderate) Stop: 07/09/17 22:30 Al Hydrox/Mg Hydrox/Simethicone (Maalox) 30 ml PO Q4HR PRN PRN Reason: GI DISTRESS Stop: 07/09/17 22:31 Aripiprazole (Abilify) 5 mg PO HS DEVAUGHN PRN Reason: Protocol Stop: 07/18/17 20:59 Last Admin: 05/21/17 21:08 Dose: 5 mg Carvedilol (Coreg) 12.5 mg PO BID [facility] Stop: 07/10/17 08:59 Last Admin: 05/21/17 16:54 Dose: Not Given Duloxetine HCl (Cymbalta) 60 mg PO DAILY DEVAUGHN PRN Reason: Protocol Stop: 07/10/17 08:59 Last Admin: 05/21/17 08:57 Dose: 60 mg Ergocalciferol (Vitamin D) 50,000 iu PO QWED [facility] Stop: 07/09/17 22:14 Last Admin: 05/18/17 16:55 Dose: Not Given Ferrous Sulfate (Iron) 325 mg PO DAILY [facility] Stop: 07/10/17 08:59 Last Admin: 05/21/17 08:57 Dose: 325 mg Fish Oil ([place] 3) 1,000 mg PO DAILY [facility]AUGHN Stop: 07/10/17 08:59 Last Admin: 05/21/17 08:57 Dose: 1,000 mg Gabapentin (Neurontin) 800 mg PO Q8HR [facility] Stop: 07/10/17 04:59 Last Admin: 05/22/17 06:00 Dose: 800 mg Insulin Aspart (Novolog Insulin Sliding Scale) 0 units SUBQ ACHS DEVAUGHN PRN Reason: Protocol Stop: 07/10/17 16:29 Last Admin: 05/22/17 06:55 Dose: Not Given Insulin Detemir (Levemir Insulin) 15 units SUBQ BID@0800,2000 DEVAUGHN PRN Reason: Protocol Stop: 07/14/17 20:59 Last Admin: 05/21/17 20:00 Dose: 15 units Lorazepam (Ativan) 1 mg PO Q4HR PRN; Protocol PRN Reason: Anxiety Stop: 07/17/17 10:33 Magnesium Hydroxide (Milk Of Magnesia) 30 ml PO HS PRN PRN Reason: Constipation Stop: 07/09/17 22:15 Mirtazapine (Remeron) 15 mg PO HS DEVAUGHN PRN Reason: Protocol Stop: 07/10/17 20:59 Last Admin: 05/21/17 21:05 Dose: 15 mg Pantoprazole Sodium (Protonix) 40 mg PO QDAC [facility]AUGHN Stop: 07/10/17 07:29 Last Admin: 05/22/17 07:00 Dose: 40 mg Trazodone HCl (Desyrel) 100 mg PO HS DEVAUGHN PRN Reason: Protocol Stop: 07/10/17 20:59 Last Admin: 05/21/17 21:05 Dose: 100 mg General: No acute distress HEENT: Atraumatic, PERRLA Cardiovascular: Regular rate, Normal S1 Lungs: Clear to auscultation Abdomen: Bowel sounds Assessment/Plan - Problem List Patient Problems: All Active Problems Dehydration (Acute) E86.0 Diabetes (Acute) E11.9 Hypokalemia (Acute) E87.6 Hyponatremia (Acute) E87.1 h/o schizophrenia (Acute) history of psychotic disorder (Acute) history of severe depression (Acute) - Assessment Assessment: Dehydration (Acute) E86.0 Diabetes (Acute) E11.9 Hypokalemia (Acute) E87.6 Hyponatremia (Acute) E87.1 h/o schizophrenia (Acute) history of psychotic disorder (Acute) history of severe depression (Acute) - Plan Plan: as per psych as problems arise Nutritional Asmnt/Malnutr-PDOC - Dietary Evaluation Malnutrition Findings (Please click <Entered> for more info): Nutritional Asmnt/Malnutrition Start: 05/12/17 10: 51 Text: Status: Complete Freq: Document 05/12/17 10:51 GSUN (Rec: 05/12/17 11:17 GSUN [email or web address]) Nutritional Asmnt/Malnutrition Patient General Information Nutritional Screening Moderate Risk Screening Diagnosis Schizoaffective disorder bipolar type with psychotic features Pertinent Medical Hx/Surgical Hx DM, HTN, esophageal reflux disease, severe hypokalemia, dementia Subjective Information 61 year old female, transfered from [facility]. Pt was soundly asleep during visit, auto service writer visited twice attempted to wake pt, unsuccessful. Limited physical assessment, no severe muslce fat wasting noted. Avg 67% of meals since adm, meeting 83% of lower end kcal needs. Per [facility] staff, pt was requesting for snacks and ice cream. Few teeth missing. Current Diet Order/ Nutrition Support Low sodium, CCHO Pertinent Medications Vitamin D, Iron, [place] 3, Novolog, Levemir, MOM, Remeron , Protonix Pertinent Labs 05/11: glucose 508H Nutritional Hx/Data Height 1.68 m Height (Calculated Centimeters) 167.6 Current Weight (lbs) 55.474 kg Weight (Calculated Kilograms) 55.5 Weight (Calculated Grams) 97559.3 [place] Body Weight 130 Weight Status Approriate GI Symptoms Food Allergies No Skin Integrity/Comment: Carlos 20. Skin intact. Current %PO Fair (50-74%) Estimated Nutritional Goals BEE in Kcals: Using Current wt Calories/Kcals/Kg CBW 122.3lb/55.6kg Kcals Calculated 1390-1668kcal (25-30kcla/kg) Protein: Using Current wt Protein Calculated 56g (1g/kg) Fluid: ml 1390-1668ml (1ml/kcal) Nutritional Problem 1. Problem Problem Altered nutrition related laboratory values related to Etiology DM aeb Signs/Symptoms: glucose 508 Intervention/Recommendation Comments 1. Continue with current diet order. Clarify "CCHO" as " [id number]." Avg PO intake is inadequate, meeting 83% lwoer end kcal needs. 2. Provide nutrition edu DM as able, pt was soundly asleep during visit. 3. Monitor glucose, adjust insulin, glucose 508. Expected Outcomes/Goals Expected Outcomes/Goals 1. PO intake continue to meet at least 75% of estimated nutritinoal needs.
--- NOTE | 2017-05-22 07:21 | General Progress Note ---
Subjective - Review of Systems Events since last encounter: Patient in no acute distress keeps to self Objective - Results Result Diagrams: 05/16/17 07:30 Recent Labs: Laboratory Last Values Sodium 135 mEq/L (136-145) L 05/16/17 07:30 Potassium 3.5 mEq/L (3.5-5.1) 05/16/17 07:30 Chloride 104 mEq/L (98-107) 05/16/17 07:30 Carbon Dioxide 27.8 mEq/L (21.0-31.0) 05/16/17 07:30 Anion Gap 6.7 (7.0-16.0) L 05/16/17 07:30 BUN 13 mg/dL (7-25) 05/16/17 07:30 Creatinine 0.8 mg/dL (0.6-1.2) 05/16/17 07:30 Est GFR ( Amer) > 60.0 ml/min (>90) 05/16/17 07:30 Est GFR (Non-Af Amer) > 60.0 ml/min 05/16/17 07:30 BUN/Creatinine Ratio 16.3 05/16/17 07:30 Glucose 90 mg/dL (70-105) 05/16/17 07:30 POC Glucose 68 MG/DL (70 - 105) L 05/22/17 06:52 Calcium 8.2 mg/dL (8.6-10.3) L 05/16/17 07:30 Total Bilirubin 0.3 mg/dL (0.3-1.0) 05/16/17 07:30 AST 94 U/L (13-39) H 05/16/17 07:30 ALT 55 U/L (7-52) H 05/16/17 07:30 Alkaline Phosphatase 73 U/L (34-104) 05/16/17 07:30 Total Protein 4.7 gm/dL (6.0-8.3) L 05/16/17 07:30 Albumin 2.5 gm/dL (3.7-5.3) L 05/16/17 07:30 Globulin 2.2 gm/dL 05/16/17 07:30 Albumin/Globulin Ratio 1.1 (1.0-1.8) 05/16/17 07:30 - Physical Exam Vitals and I&O: Vital Signs Temp 97.9 F 05/22/17 06:47 Pulse 64 05/22/17 06:47 Resp 18 05/22/17 06:47 BP 122/53 05/22/17 06:47 Pulse Ox 97 05/22/17 06:47 Intake & Output 05/21/17 05/22/17 05/22/17 18:59 06:59 18:59 Intake Total 1200 240 Balance 1200 240 Intake: Oral 1200 240 Other: # Voids 1 # Bowel Movements 1 Active Medications: Current Medications Acetaminophen (Tylenol) 650 mg PO Q4H PRN PRN Reason: Mild-Moderate Pain or T >101 Stop: 07/09/17 22:29 Acetaminophen (Tylenol Extra Strength) 500 mg PO Q4H PRN PRN Reason: Pain (Moderate) Stop: 07/09/17 22:30 Al Hydrox/Mg Hydrox/Simethicone (Maalox) 30 ml PO Q4HR PRN PRN Reason: GI DISTRESS Stop: 07/09/17 22:31 Aripiprazole (Abilify) 5 mg PO HS DEVAUGHN PRN Reason: Protocol Stop: 07/18/17 20:59 Last Admin: 05/21/17 21:08 Dose: 5 mg Carvedilol (Coreg) 12.5 mg PO BID [facility] Stop: 07/10/17 08:59 Last Admin: 05/21/17 16:54 Dose: Not Given Duloxetine HCl (Cymbalta) 60 mg PO DAILY DEVAUGHN PRN Reason: Protocol Stop: 07/10/17 08:59 Last Admin: 05/21/17 08:57 Dose: 60 mg Ergocalciferol (Vitamin D) 50,000 iu PO QWED [facility] Stop: 07/09/17 22:14 Last Admin: 05/18/17 16:55 Dose: Not Given Ferrous Sulfate (Iron) 325 mg PO DAILY [facility] Stop: 07/10/17 08:59 Last Admin: 05/21/17 08:57 Dose: 325 mg Fish Oil ([place] 3) 1,000 mg PO DAILY DEVAUGHN Stop: 07/10/17 08:59 Last Admin: 05/21/17 08:57 Dose: 1,000 mg Gabapentin (Neurontin) 800 mg PO Q8HR [facility] Stop: 07/10/17 04:59 Last Admin: 05/22/17 06:00 Dose: 800 mg Insulin Aspart (Novolog Insulin Sliding Scale) 0 units SUBQ ACHS DEVAUGHN PRN Reason: Protocol Stop: 07/10/17 16:29 Last Admin: 05/22/17 06:55 Dose: Not Given Insulin Detemir (Levemir Insulin) 15 units SUBQ BID@0800,2000 DEVAUGHN PRN Reason: Protocol Stop: 07/14/17 20:59 Last Admin: 05/21/17 20:00 Dose: 15 units Lorazepam (Ativan) 1 mg PO Q4HR PRN; Protocol PRN Reason: Anxiety Stop: 07/17/17 10:33 Magnesium Hydroxide (Milk Of Magnesia) 30 ml PO HS PRN PRN Reason: Constipation Stop: 07/09/17 22:15 Mirtazapine (Remeron) 15 mg PO HS DEVAUGHN PRN Reason: Protocol Stop: 07/10/17 20:59 Last Admin: 05/21/17 21:05 Dose: 15 mg Pantoprazole Sodium (Protonix) 40 mg PO QDAC [facility]GH[facility] Stop: 07/10/17 07:29 Last Admin: 05/22/17 07:00 Dose: 40 mg Trazodone HCl (Desyrel) 100 mg PO HS DEVAUGHN PRN Reason: Protocol Stop: 07/10/17 20:59 Last Admin: 05/21/17 21:05 Dose: 100 mg General: No acute distress HEENT: Atraumatic, PERRLA Cardiovascular: Regular rate, Normal S1 Lungs: Clear to auscultation Abdomen: Bowel sounds Assessment/Plan - Problem List Patient Problems: All Active Problems Dehydration (Acute) E86.0 Diabetes (Acute) E11.9 Hypokalemia (Acute) E87.6 Hyponatremia (Acute) E87.1 h/o schizophrenia (Acute) history of psychotic disorder (Acute) history of severe depression (Acute) - Assessment Assessment: Dehydration (Acute) E86.0 Diabetes (Acute) E11.9 Hypokalemia (Acute) E87.6 Hyponatremia (Acute) E87.1 h/o schizophrenia (Acute) history of psychotic disorder (Acute) history of severe depression (Acute) - Plan Plan: as per psych as problems arise Nutritional Asmnt/Malnutr-PDOC - Dietary Evaluation Malnutrition Findings (Please click <Entered> for more info): Nutritional Asmnt/Malnutrition Start: 05/12/17 10: 51 Text: Status: Complete Freq: Document 05/12/17 10:51 GSUN (Rec: 05/12/17 11:17 GSUN [email or web address]) Nutritional Asmnt/Malnutrition Patient General Information Nutritional Screening Moderate Risk Screening Diagnosis Schizoaffective disorder bipolar type with psychotic features Pertinent Medical Hx/Surgical Hx DM, HTN, esophageal reflux disease, severe hypokalemia, dementia Subjective Information 61 year old female, transfered from [facility]. Pt was soundly asleep during visit, handbook writer visited twice attempted to wake pt, unsuccessful. Limited physical assessment, no severe muslce fat wasting noted. Avg 67% of meals since adm, meeting 83% of lower end kcal needs. Per [facility] staff, pt was requesting for snacks and ice cream. Few teeth missing. Current Diet Order/ Nutrition Support Low sodium, CCHO Pertinent Medications Vitamin D, Iron, [place] 3, Novolog, Levemir, MOM, Remeron , Protonix Pertinent Labs 05/11: glucose 508H Nutritional Hx/Data Height 1.68 m Height (Calculated Centimeters) 167.6 Current Weight (lbs) 55.474 kg Weight (Calculated Kilograms) 55.5 Weight (Calculated Grams) 77085.3 [place] Body Weight 130 Weight Status Approriate GI Symptoms Food Allergies No Skin Integrity/Comment: Carlos 20. Skin intact. Current %PO Fair (50-74%) Estimated Nutritional Goals BEE in Kcals: Using Current wt Calories/Kcals/Kg CBW 122.3lb/55.6kg Kcals Calculated 1390-1668kcal (25-30kcla/kg) Protein: Using Current wt Protein Calculated 56g (1g/kg) Fluid: ml 1390-1668ml (1ml/kcal) Nutritional Problem 1. Problem Problem Altered nutrition related laboratory values related to Etiology DM aeb Signs/Symptoms: glucose 508 Intervention/Recommendation Comments 1. Continue with current diet order. Clarify "CCHO" as " [id number]." Avg PO intake is inadequate, meeting 83% lwoer end kcal needs. 2. Provide nutrition edu DM as able, pt was soundly asleep during visit. 3. Monitor glucose, adjust insulin, glucose 508. Expected Outcomes/Goals Expected Outcomes/Goals 1. PO intake continue to meet at least 75% of estimated nutritinoal needs.
--- NOTE | 2017-05-22 07:21 | General Progress Note ---
Subjective - Review of Systems Events since last encounter: Patient in no acute distress keeps to self Objective - Results Result Diagrams: 05/16/17 07:30 Recent Labs: Laboratory Last Values Sodium 135 mEq/L (136-145) L 05/16/17 07:30 Potassium 3.5 mEq/L (3.5-5.1) 05/16/17 07:30 Chloride 104 mEq/L (98-107) 05/16/17 07:30 Carbon Dioxide 27.8 mEq/L (21.0-31.0) 05/16/17 07:30 Anion Gap 6.7 (7.0-16.0) L 05/16/17 07:30 BUN 13 mg/dL (7-25) 05/16/17 07:30 Creatinine 0.8 mg/dL (0.6-1.2) 05/16/17 07:30 Est GFR ( Amer) > 60.0 ml/min (>90) 05/16/17 07:30 Est GFR (Non-Af Amer) > 60.0 ml/min 05/16/17 07:30 BUN/Creatinine Ratio 16.3 05/16/17 07:30 Glucose 90 mg/dL (70-105) 05/16/17 07:30 POC Glucose 68 MG/DL (70 - 105) L 05/22/17 06:52 Calcium 8.2 mg/dL (8.6-10.3) L 05/16/17 07:30 Total Bilirubin 0.3 mg/dL (0.3-1.0) 05/16/17 07:30 AST 94 U/L (13-39) H 05/16/17 07:30 ALT 55 U/L (7-52) H 05/16/17 07:30 Alkaline Phosphatase 73 U/L (34-104) 05/16/17 07:30 Total Protein 4.7 gm/dL (6.0-8.3) L 05/16/17 07:30 Albumin 2.5 gm/dL (3.7-5.3) L 05/16/17 07:30 Globulin 2.2 gm/dL 05/16/17 07:30 Albumin/Globulin Ratio 1.1 (1.0-1.8) 05/16/17 07:30 - Physical Exam Vitals and I&O: Vital Signs Temp 97.9 F 05/22/17 06:47 Pulse 64 05/22/17 06:47 Resp 18 05/22/17 06:47 BP 122/53 05/22/17 06:47 Pulse Ox 97 05/22/17 06:47 Intake & Output 05/21/17 05/22/17 05/22/17 18:59 06:59 18:59 Intake Total 1200 240 Balance 1200 240 Intake: Oral 1200 240 Other: # Voids 1 # Bowel Movements 1 Active Medications: Current Medications Acetaminophen (Tylenol) 650 mg PO Q4H PRN PRN Reason: Mild-Moderate Pain or T >101 Stop: 07/09/17 22:29 Acetaminophen (Tylenol Extra Strength) 500 mg PO Q4H PRN PRN Reason: Pain (Moderate) Stop: 07/09/17 22:30 Al Hydrox/Mg Hydrox/Simethicone (Maalox) 30 ml PO Q4HR PRN PRN Reason: GI DISTRESS Stop: 07/09/17 22:31 Aripiprazole (Abilify) 5 mg PO HS DEVAUGHN PRN Reason: Protocol Stop: 07/18/17 20:59 Last Admin: 05/21/17 21:08 Dose: 5 mg Carvedilol (Coreg) 12.5 mg PO BID [facility] Stop: 07/10/17 08:59 Last Admin: 05/21/17 16:54 Dose: Not Given Duloxetine HCl (Cymbalta) 60 mg PO DAILY DEVAUGHN PRN Reason: Protocol Stop: 07/10/17 08:59 Last Admin: 05/21/17 08:57 Dose: 60 mg Ergocalciferol (Vitamin D) 50,000 iu PO QWED [facility] Stop: 07/09/17 22:14 Last Admin: 05/18/17 16:55 Dose: Not Given Ferrous Sulfate (Iron) 325 mg PO DAILY [facility] Stop: 07/10/17 08:59 Last Admin: 05/21/17 08:57 Dose: 325 mg Fish Oil ([place] 3) 1,000 mg PO DAILY [facility] Stop: 07/10/17 08:59 Last Admin: 05/21/17 08:57 Dose: 1,000 mg Gabapentin (Neurontin) 800 mg PO Q8HR [facility] Stop: 07/10/17 04:59 Last Admin: 05/22/17 06:00 Dose: 800 mg Insulin Aspart (Novolog Insulin Sliding Scale) 0 units SUBQ ACHS DEVAUGHN PRN Reason: Protocol Stop: 07/10/17 16:29 Last Admin: 05/22/17 06:55 Dose: Not Given Insulin Detemir (Levemir Insulin) 15 units SUBQ BID@0800,2000 DEVAUGHN PRN Reason: Protocol Stop: 07/14/17 20:59 Last Admin: 05/21/17 20:00 Dose: 15 units Lorazepam (Ativan) 1 mg PO Q4HR PRN; Protocol PRN Reason: Anxiety Stop: 07/17/17 10:33 Magnesium Hydroxide (Milk Of Magnesia) 30 ml PO HS PRN PRN Reason: Constipation Stop: 07/09/17 22:15 Mirtazapine (Remeron) 15 mg PO HS DEVAUGHN PRN Reason: Protocol Stop: 07/10/17 20:59 Last Admin: 05/21/17 21:05 Dose: 15 mg Pantoprazole Sodium (Protonix) 40 mg PO QDAC [facility] Stop: 07/10/17 07:29 Last Admin: 05/22/17 07:00 Dose: 40 mg Trazodone HCl (Desyrel) 100 mg PO HS DEVAUGHN PRN Reason: Protocol Stop: 07/10/17 20:59 Last Admin: 05/21/17 21:05 Dose: 100 mg General: No acute distress HEENT: Atraumatic, PERRLA Cardiovascular: Regular rate, Normal S1 Lungs: Clear to auscultation Abdomen: Bowel sounds Assessment/Plan - Problem List Patient Problems: All Active Problems Dehydration (Acute) E86.0 Diabetes (Acute) E11.9 Hypokalemia (Acute) E87.6 Hyponatremia (Acute) E87.1 h/o schizophrenia (Acute) history of psychotic disorder (Acute) history of severe depression (Acute) - Assessment Assessment: Dehydration (Acute) E86.0 Diabetes (Acute) E11.9 Hypokalemia (Acute) E87.6 Hyponatremia (Acute) E87.1 h/o schizophrenia (Acute) history of psychotic disorder (Acute) history of severe depression (Acute) - Plan Plan: as per psych as problems arise Nutritional Asmnt/Malnutr-PDOC - Dietary Evaluation Malnutrition Findings (Please click <Entered> for more info): Nutritional Asmnt/Malnutrition Start: 05/12/17 10: 51 Text: Status: Complete Freq: Document 05/12/17 10:51 GSUN (Rec: 05/12/17 11:17 GSUN [email or web address]) Nutritional Asmnt/Malnutrition Patient General Information Nutritional Screening Moderate Risk Screening Diagnosis Schizoaffective disorder bipolar type with psychotic features Pertinent Medical Hx/Surgical Hx DM, HTN, esophageal reflux disease, severe hypokalemia, dementia Subjective Information 61 year old female, transfered from [facility]. Pt was soundly asleep during visit, food writer visited twice attempted to wake pt, unsuccessful. Limited physical assessment, no severe muslce fat wasting noted. Avg 67% of meals since adm, meeting 83% of lower end kcal needs. Per [facility] staff, pt was requesting for snacks and ice cream. Few teeth missing. Current Diet Order/ Nutrition Support Low sodium, CCHO Pertinent Medications Vitamin D, Iron, [place] 3, Novolog, Levemir, MOM, Remeron , Protonix Pertinent Labs 05/11: glucose 508H Nutritional Hx/Data Height 1.68 m Height (Calculated Centimeters) 167.6 Current Weight (lbs) 55.474 kg Weight (Calculated Kilograms) 55.5 Weight (Calculated Grams) 31028.3 [place] Body Weight 130 Weight Status Approriate GI Symptoms Food Allergies No Skin Integrity/Comment: Carlos 20. Skin intact. Current %PO Fair (50-74%) Estimated Nutritional Goals BEE in Kcals: Using Current wt Calories/Kcals/Kg CBW 122.3lb/55.6kg Kcals Calculated 1390-1668kcal (25-30kcla/kg) Protein: Using Current wt Protein Calculated 56g (1g/kg) Fluid: ml 1390-1668ml (1ml/kcal) Nutritional Problem 1. Problem Problem Altered nutrition related laboratory values related to Etiology DM aeb Signs/Symptoms: glucose 508 Intervention/Recommendation Comments 1. Continue with current diet order. Clarify "CCHO" as " [id number]." Avg PO intake is inadequate, meeting 83% lwoer end kcal needs. 2. Provide nutrition edu DM as able, pt was soundly asleep during visit. 3. Monitor glucose, adjust insulin, glucose 508. Expected Outcomes/Goals Expected Outcomes/Goals 1. PO intake continue to meet at least 75% of estimated nutritinoal needs.
[2017-05-22] MEDS: Fish Oil 1,000 MG SGL PO SCH (09:08)
[2017-05-22] MEDS: Ferrous Sulfate 325 MG TAB PO SCH (09:08)
[2017-05-22] MEDS: Insulin Detemir 100 units/mL 10mL Vial SUBQ SCH ×2 (09:09→21:35)
--- NOTE | 2017-05-23 02:56 | Progress Notes ---
DATE: 05/22/2017 SUBJECTIVE: The patient seen, chart reviewed, discussed with staff. The patient remains confused, forgetful, still believing that she was living at the mother's house, but actually in a convalescent home, disoriented, gravely disabled, cannot care for her basic needs, unable to really participate in meaningful conversation ____. ASSESSMENT: The patient remains symptomatic, confused, but she is following directions. Medications were noted. PLAN: We will continue to monitor. The patient's symptoms are ongoing. [facility]# [id number]
--- NOTE | 2017-05-23 02:56 | Progress Notes ---
DATE: 05/22/2017 SUBJECTIVE: The patient seen, chart reviewed, discussed with staff. The patient remains confused, forgetful, still believing that she was living at the mother's house, but actually in a convalescent home, disoriented, gravely disabled, cannot care for her basic needs, unable to really participate in meaningful conversation ____. ASSESSMENT: The patient remains symptomatic, confused, but she is following directions. Medications were noted. PLAN: We will continue to monitor. The patient's symptoms are ongoing. [facility]# [id number]
--- NOTE | 2017-05-23 02:56 | Progress Notes ---
DATE: 05/22/2017 SUBJECTIVE: The patient seen, chart reviewed, discussed with staff. The patient remains confused, forgetful, still believing that she was living at the mother's house, but actually in a convalescent home, disoriented, gravely disabled, cannot care for her basic needs, unable to really participate in meaningful conversation ____. ASSESSMENT: The patient remains symptomatic, confused, but she is following directions. Medications were noted. PLAN: We will continue to monitor. The patient's symptoms are ongoing. [facility]# [id number]
[2017-05-23] MEDS: INSULIN ASPART SLIDING SCALE 100 UNITS/ML UNIT SUBQ SCH ×4 (06:29→21:20)
[2017-05-23] MEDS: Pantoprazole 40 mg EC Tab PO SCH (06:37)
[2017-05-23] MEDS: Ferrous Sulfate 325 MG TAB PO SCH (09:09)
[2017-05-23] MEDS: Insulin Detemir 100 units/mL 10mL Vial SUBQ SCH ×2 (09:09→21:18)
[2017-05-23] MEDS: Fish Oil 1,000 MG SGL PO SCH (09:09)
--- NOTE | 2017-05-23 19:57 | Internal Medicine Prog Note ---
Internal Medicine Subjective - Subjective Patient is:: awake Per staff patient has:: no adverse event, tolerating meds Internal Medicine Objective - Results Result Diagrams: 05/16/17 07:30 Recent Labs: Laboratory Last Values Sodium 135 mEq/L (136-145) L 05/16/17 07:30 Potassium 3.5 mEq/L (3.5-5.1) 05/16/17 07:30 Chloride 104 mEq/L (98-107) 05/16/17 07:30 Carbon Dioxide 27.8 mEq/L (21.0-31.0) 05/16/17 07:30 Anion Gap 6.7 (7.0-16.0) L 05/16/17 07:30 BUN 13 mg/dL (7-25) 05/16/17 07:30 Creatinine 0.8 mg/dL (0.6-1.2) 05/16/17 07:30 Est GFR ( Amer) > 60.0 ml/min (>90) 05/16/17 07:30 Est GFR (Non-Af Amer) > 60.0 ml/min 05/16/17 07:30 BUN/Creatinine Ratio 16.3 05/16/17 07:30 Glucose 90 mg/dL (70-105) 05/16/17 07:30 POC Glucose 284 MG/DL (70 - 105) H 05/23/17 16:45 Calcium 8.2 mg/dL (8.6-10.3) L 05/16/17 07:30 Total Bilirubin 0.3 mg/dL (0.3-1.0) 05/16/17 07:30 AST 94 U/L (13-39) H 05/16/17 07:30 ALT 55 U/L (7-52) H 05/16/17 07:30 Alkaline Phosphatase 73 U/L (34-104) 05/16/17 07:30 Total Protein 4.7 gm/dL (6.0-8.3) L 05/16/17 07:30 Albumin 2.5 gm/dL (3.7-5.3) L 05/16/17 07:30 Globulin 2.2 gm/dL 05/16/17 07:30 Albumin/Globulin Ratio 1.1 (1.0-1.8) 05/16/17 07:30 - Physical Exam Vitals and I&O: Vital Signs Temp 97.6 F 05/23/17 15:30 Pulse 78 05/23/17 15:30 Resp 18 05/23/17 15:30 BP 124/76 05/23/17 15:30 Pulse Ox 98 05/23/17 15:30 Intake & Output 05/23/17 05/23/17 05/24/17 06:59 18:59 06:59 Intake Total 360 Balance 360 Intake: Oral 360 Other: # Voids 1 # Bowel Movements 0 Active Medications: Current Medications Acetaminophen (Tylenol) 650 mg PO Q4H PRN PRN Reason: Mild-Moderate Pain or T >101 Stop: 07/09/17 22:29 Acetaminophen (Tylenol Extra Strength) 500 mg PO Q4H PRN PRN Reason: Pain (Moderate) Stop: 07/09/17 22:30 Al Hydrox/Mg Hydrox/Simethicone (Maalox) 30 ml PO Q4HR PRN PRN Reason: GI DISTRESS Stop: 07/09/17 22:31 Aripiprazole (Abilify) 5 mg PO HS DEVAUGHN PRN Reason: Protocol Stop: 07/18/17 20:59 Last Admin: 05/22/17 21:18 Dose: Not Given Carvedilol (Coreg) 12.5 mg PO BID [facility] Stop: 07/10/17 08:59 Last Admin: 05/23/17 16:48 Dose: Not Given Duloxetine HCl (Cymbalta) 60 mg PO DAILY DEVAUGHN PRN Reason: Protocol Stop: 07/10/17 08:59 Last Admin: 05/23/17 09:09 Dose: 60 mg Ergocalciferol (Vitamin D) 50,000 iu PO QWED [facility] Stop: 07/09/17 22:14 Last Admin: 05/18/17 16:55 Dose: Not Given Ferrous Sulfate (Iron) 325 mg PO DAILY [facility] Stop: 07/10/17 08:59 Last Admin: 05/23/17 09:09 Dose: 325 mg Fish Oil ([place] 3) 1,000 mg PO DAILY [facility] Stop: 07/10/17 08:59 Last Admin: 05/23/17 09:09 Dose: 1,000 mg Gabapentin (Neurontin) 800 mg PO Q8HR [facility] Stop: 07/10/17 04:59 Last Admin: 05/23/17 16:24 Dose: Not Given Insulin Aspart (Novolog Insulin Sliding Scale) 0 units SUBQ ACHS DEVAUGHN PRN Reason: Protocol Stop: 07/10/17 16:29 Last Admin: 05/23/17 16:48 Dose: 6 units Insulin Detemir (Levemir Insulin) 15 units SUBQ BID@0800,2000 DEVAUGHN PRN Reason: Protocol Stop: 07/14/17 20:59 Last Admin: 05/23/17 09:09 Dose: 15 units Lorazepam (Ativan) 1 mg PO Q4HR PRN; Protocol PRN Reason: Anxiety Stop: 07/17/17 10:33 Last Admin: 05/23/17 16:24 Dose: 1 mg Magnesium Hydroxide (Milk Of Magnesia) 30 ml PO HS PRN PRN Reason: Constipation Stop: 07/09/17 22:15 Mirtazapine (Remeron) 15 mg PO HS DEVAUGHN PRN Reason: Protocol Stop: 07/10/17 20:59 Last Admin: 05/22/17 22:16 Dose: Not Given Pantoprazole Sodium (Protonix) 40 mg PO QDAC DEVAUGHN Stop: 07/10/17 07:29 Last Admin: 05/23/17 06:37 Dose: 40 mg Trazodone HCl (Desyrel) 100 mg PO HS DEVAUGHN PRN Reason: Protocol Stop: 07/10/17 20:59 Last Admin: 05/22/17 21:18 Dose: Not Given General: alert HEENT: NC/AT, PERRLA Lungs: CTAB Cardiovascular: RRR, Normal S1, Normal S2 Abdomen: soft, non-tender, non-distended, positive bowel sound Neurological: no change Internal Medicine Assmt/Plan - Assessment Assessment: Dehydration (Acute) E86.0 Diabetes (Acute) E11.9 Hypokalemia (Acute) E87.6 Hyponatremia (Acute) E87.1 h/o schizophrenia (Acute) history of psychotic disorder (Acute) history of severe depression (Acute) - Plan Plan: as per psych as problems arise Nutritional Asmnt/Malnutr-PDOC - Dietary Evaluation Malnutrition Findings (Please click <Entered> for more info): Nutritional Asmnt/Malnutrition Start: 05/12/17 10: 51 Text: Status: Complete Freq: Document 05/12/17 10:51 GSUN (Rec: 05/12/17 11:17 GSUN [email or web address]) Nutritional Asmnt/Malnutrition Patient General Information Nutritional Screening Moderate Risk Screening Diagnosis Schizoaffective disorder bipolar type with psychotic features Pertinent Medical Hx/Surgical Hx DM, HTN, esophageal reflux disease, severe hypokalemia, dementia Subjective Information 61 year old female, transfered from [facility]. 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 Limited physical assessment, no severe muslce fat wasting noted. Avg 67% of meals since adm, meeting 83% of lower end kcal needs. Per [facility] staff, pt was requesting for snacks and ice cream. Few teeth missing. Current Diet Order/ Nutrition Support Low sodium, CCHO Pertinent Medications Vitamin D, Iron, [place] 3, Novolog, Levemir, MOM, Remeron , Protonix Pertinent Labs 05/11: glucose 508H Nutritional Hx/Data Height 1.68 m Height (Calculated Centimeters) 167.6 Current Weight (lbs) 55.474 kg Weight (Calculated Kilograms) 55.5 Weight (Calculated Grams) 52635.3 [place] Body Weight 130 Weight Status Approriate GI Symptoms Food Allergies No Skin Integrity/Comment: [place]. Skin intact. Current %PO Fair (50-74%) Estimated Nutritional Goals BEE in Kcals: Using Current wt Calories/Kcals/Kg CBW 122.3lb/55.6kg Kcals Calculated 1390-1668kcal (25-30kcla/kg) Protein: Using Current wt Protein Calculated 56g (1g/kg) Fluid: ml 1390-1668ml (1ml/kcal) Nutritional Problem 1. Problem Problem Altered nutrition related laboratory values related to Etiology DM aeb Signs/Symptoms: glucose 508 Intervention/Recommendation Comments 1. Continue with current diet order. Clarify "CCHO" as " [id number]." Avg PO intake is inadequate, meeting 83% lwoer end kcal needs. 2. Provide nutrition edu DM as able, pt was soundly asleep during visit. 3. Monitor glucose, adjust insulin, glucose 508. Expected Outcomes/Goals Expected Outcomes/Goals 1. PO intake continue to meet at least 75% of estimated nutritinoal needs.
--- NOTE | 2017-05-23 19:57 | Internal Medicine Prog Note ---
Internal Medicine Subjective - Subjective Patient is:: awake Per staff patient has:: no adverse event, tolerating meds Internal Medicine Objective - Results Result Diagrams: 05/16/17 07:30 Recent Labs: Laboratory Last Values Sodium 135 mEq/L (136-145) L 05/16/17 07:30 Potassium 3.5 mEq/L (3.5-5.1) 05/16/17 07:30 Chloride 104 mEq/L (98-107) 05/16/17 07:30 Carbon Dioxide 27.8 mEq/L (21.0-31.0) 05/16/17 07:30 Anion Gap 6.7 (7.0-16.0) L 05/16/17 07:30 BUN 13 mg/dL (7-25) 05/16/17 07:30 Creatinine 0.8 mg/dL (0.6-1.2) 05/16/17 07:30 Est GFR ( Amer) > 60.0 ml/min (>90) 05/16/17 07:30 Est GFR (Non-Af Amer) > 60.0 ml/min 05/16/17 07:30 BUN/Creatinine Ratio 16.3 05/16/17 07:30 Glucose 90 mg/dL (70-105) 05/16/17 07:30 POC Glucose 284 MG/DL (70 - 105) H 05/23/17 16:45 Calcium 8.2 mg/dL (8.6-10.3) L 05/16/17 07:30 Total Bilirubin 0.3 mg/dL (0.3-1.0) 05/16/17 07:30 AST 94 U/L (13-39) H 05/16/17 07:30 ALT 55 U/L (7-52) H 05/16/17 07:30 Alkaline Phosphatase 73 U/L (34-104) 05/16/17 07:30 Total Protein 4.7 gm/dL (6.0-8.3) L 05/16/17 07:30 Albumin 2.5 gm/dL (3.7-5.3) L 05/16/17 07:30 Globulin 2.2 gm/dL 05/16/17 07:30 Albumin/Globulin Ratio 1.1 (1.0-1.8) 05/16/17 07:30 - Physical Exam Vitals and I&O: Vital Signs Temp 97.6 F 05/23/17 15:30 Pulse 78 05/23/17 15:30 Resp 18 05/23/17 15:30 BP 124/76 05/23/17 15:30 Pulse Ox 98 05/23/17 15:30 Intake & Output 05/23/17 05/23/17 05/24/17 06:59 18:59 06:59 Intake Total 360 Balance 360 Intake: Oral 360 Other: # Voids 1 # Bowel Movements 0 Active Medications: Current Medications Acetaminophen (Tylenol) 650 mg PO Q4H PRN PRN Reason: Mild-Moderate Pain or T >101 Stop: 07/09/17 22:29 Acetaminophen (Tylenol Extra Strength) 500 mg PO Q4H PRN PRN Reason: Pain (Moderate) Stop: 07/09/17 22:30 Al Hydrox/Mg Hydrox/Simethicone (Maalox) 30 ml PO Q4HR PRN PRN Reason: GI DISTRESS Stop: 07/09/17 22:31 Aripiprazole (Abilify) 5 mg PO HS DEVAUGHN PRN Reason: Protocol Stop: 07/18/17 20:59 Last Admin: 05/22/17 21:18 Dose: Not Given Carvedilol (Coreg) 12.5 mg PO BID [facility] Stop: 07/10/17 08:59 Last Admin: 05/23/17 16:48 Dose: Not Given Duloxetine HCl (Cymbalta) 60 mg PO DAILY DEVAUGHN PRN Reason: Protocol Stop: 07/10/17 08:59 Last Admin: 05/23/17 09:09 Dose: 60 mg Ergocalciferol (Vitamin D) 50,000 iu PO QWED [facility] Stop: 07/09/17 22:14 Last Admin: 05/18/17 16:55 Dose: Not Given Ferrous Sulfate (Iron) 325 mg PO DAILY [facility] Stop: 07/10/17 08:59 Last Admin: 05/23/17 09:09 Dose: 325 mg Fish Oil ([place] 3) 1,000 mg PO DAILY [facility] Stop: 07/10/17 08:59 Last Admin: 05/23/17 09:09 Dose: 1,000 mg Gabapentin (Neurontin) 800 mg PO Q8HR [facility] Stop: 07/10/17 04:59 Last Admin: 05/23/17 16:24 Dose: Not Given Insulin Aspart (Novolog Insulin Sliding Scale) 0 units SUBQ ACHS DEVAUGHN PRN Reason: Protocol Stop: 07/10/17 16:29 Last Admin: 05/23/17 16:48 Dose: 6 units Insulin Detemir (Levemir Insulin) 15 units SUBQ BID@0800,2000 DEVAUGHN PRN Reason: Protocol Stop: 07/14/17 20:59 Last Admin: 05/23/17 09:09 Dose: 15 units Lorazepam (Ativan) 1 mg PO Q4HR PRN; Protocol PRN Reason: Anxiety Stop: 07/17/17 10:33 Last Admin: 05/23/17 16:24 Dose: 1 mg Magnesium Hydroxide (Milk Of Magnesia) 30 ml PO HS PRN PRN Reason: Constipation Stop: 07/09/17 22:15 Mirtazapine (Remeron) 15 mg PO HS DEVAUGHN PRN Reason: Protocol Stop: 07/10/17 20:59 Last Admin: 05/22/17 22:16 Dose: Not Given Pantoprazole Sodium (Protonix) 40 mg PO QDAC DEVAUGHN Stop: 07/10/17 07:29 Last Admin: 05/23/17 06:37 Dose: 40 mg Trazodone HCl (Desyrel) 100 mg PO HS DEVAUGHN PRN Reason: Protocol Stop: 07/10/17 20:59 Last Admin: 05/22/17 21:18 Dose: Not Given General: alert HEENT: NC/AT, PERRLA Lungs: CTAB Cardiovascular: RRR, Normal S1, Normal S2 Abdomen: soft, non-tender, non-distended, positive bowel sound Neurological: no change Internal Medicine Assmt/Plan - Assessment Assessment: Dehydration (Acute) E86.0 Diabetes (Acute) E11.9 Hypokalemia (Acute) E87.6 Hyponatremia (Acute) E87.1 h/o schizophrenia (Acute) history of psychotic disorder (Acute) history of severe depression (Acute) - Plan Plan: as per psych as problems arise Nutritional Asmnt/Malnutr-PDOC - Dietary Evaluation Malnutrition Findings (Please click <Entered> for more info): Nutritional Asmnt/Malnutrition Start: 05/12/17 10: 51 Text: Status: Complete Freq: Document 05/12/17 10:51 GSUN (Rec: 05/12/17 11:17 GSUN [email or web address]) Nutritional Asmnt/Malnutrition Patient General Information Nutritional Screening Moderate Risk Screening Diagnosis Schizoaffective disorder bipolar type with psychotic features Pertinent Medical Hx/Surgical Hx DM, HTN, esophageal reflux disease, severe hypokalemia, dementia Subjective Information 61 year old female, transfered from [facility]. Pt was soundly asleep during visit, keno writer visited twice attempted to wake pt, unsuccessful. Limited physical assessment, no severe muslce fat wasting noted. Avg 67% of meals since adm, meeting 83% of lower end kcal needs. Per [facility] staff, pt was requesting for snacks and ice cream. Few teeth missing. Current Diet Order/ Nutrition Support Low sodium, CCHO Pertinent Medications Vitamin D, Iron, [place] 3, Novolog, Levemir, MOM, Remeron , Protonix Pertinent Labs 05/11: glucose 508H Nutritional Hx/Data Height 1.68 m Height (Calculated Centimeters) 167.6 Current Weight (lbs) 55.474 kg Weight (Calculated Kilograms) 55.5 Weight (Calculated Grams) 58317.3 [place] Body Weight 130 Weight Status Approriate GI Symptoms Food Allergies No Skin Integrity/Comment: Carlos Luna. Skin intact. Current %PO Fair (50-74%) Estimated Nutritional Goals BEE in Kcals: Using Current wt Calories/Kcals/Kg CBW 122.3lb/55.6kg Kcals Calculated 1390-1668kcal (25-30kcla/kg) Protein: Using Current wt Protein Calculated 56g (1g/kg) Fluid: ml 1390-1668ml (1ml/kcal) Nutritional Problem 1. Problem Problem Altered nutrition related laboratory values related to Etiology DM aeb Signs/Symptoms: glucose 508 Intervention/Recommendation Comments 1. Continue with current diet order. Clarify "CCHO" as " [id number]." Avg PO intake is inadequate, meeting 83% lwoer end kcal needs. 2. Provide nutrition edu DM as able, pt was soundly asleep during visit. 3. Monitor glucose, adjust insulin, glucose 508. Expected Outcomes/Goals Expected Outcomes/Goals 1. PO intake continue to meet at least 75% of estimated nutritinoal needs.
--- NOTE | 2017-05-23 19:57 | Internal Medicine Prog Note ---
Internal Medicine Subjective - Subjective Patient is:: awake Per staff patient has:: no adverse event, tolerating meds Internal Medicine Objective - Results Result Diagrams: 05/16/17 07:30 Recent Labs: Laboratory Last Values Sodium 135 mEq/L (136-145) L 05/16/17 07:30 Potassium 3.5 mEq/L (3.5-5.1) 05/16/17 07:30 Chloride 104 mEq/L (98-107) 05/16/17 07:30 Carbon Dioxide 27.8 mEq/L (21.0-31.0) 05/16/17 07:30 Anion Gap 6.7 (7.0-16.0) L 05/16/17 07:30 BUN 13 mg/dL (7-25) 05/16/17 07:30 Creatinine 0.8 mg/dL (0.6-1.2) 05/16/17 07:30 Est GFR ( Amer) > 60.0 ml/min (>90) 05/16/17 07:30 Est GFR (Non-Af Amer) > 60.0 ml/min 05/16/17 07:30 BUN/Creatinine Ratio 16.3 05/16/17 07:30 Glucose 90 mg/dL (70-105) 05/16/17 07:30 POC Glucose 284 MG/DL (70 - 105) H 05/23/17 16:45 Calcium 8.2 mg/dL (8.6-10.3) L 05/16/17 07:30 Total Bilirubin 0.3 mg/dL (0.3-1.0) 05/16/17 07:30 AST 94 U/L (13-39) H 05/16/17 07:30 ALT 55 U/L (7-52) H 05/16/17 07:30 Alkaline Phosphatase 73 U/L (34-104) 05/16/17 07:30 Total Protein 4.7 gm/dL (6.0-8.3) L 05/16/17 07:30 Albumin 2.5 gm/dL (3.7-5.3) L 05/16/17 07:30 Globulin 2.2 gm/dL 05/16/17 07:30 Albumin/Globulin Ratio 1.1 (1.0-1.8) 05/16/17 07:30 - Physical Exam Vitals and I&O: Vital Signs Temp 97.6 F 05/23/17 15:30 Pulse 78 05/23/17 15:30 Resp 18 05/23/17 15:30 BP 124/76 05/23/17 15:30 Pulse Ox 98 05/23/17 15:30 Intake & Output 05/23/17 05/23/17 05/24/17 06:59 18:59 06:59 Intake Total 360 Balance 360 Intake: Oral 360 Other: # Voids 1 # Bowel Movements 0 Active Medications: Current Medications Acetaminophen (Tylenol) 650 mg PO Q4H PRN PRN Reason: Mild-Moderate Pain or T >101 Stop: 07/09/17 22:29 Acetaminophen (Tylenol Extra Strength) 500 mg PO Q4H PRN PRN Reason: Pain (Moderate) Stop: 07/09/17 22:30 Al Hydrox/Mg Hydrox/Simethicone (Maalox) 30 ml PO Q4HR PRN PRN Reason: GI DISTRESS Stop: 07/09/17 22:31 Aripiprazole (Abilify) 5 mg PO HS DEVAUGHN PRN Reason: Protocol Stop: 07/18/17 20:59 Last Admin: 05/22/17 21:18 Dose: Not Given Carvedilol (Coreg) 12.5 mg PO BID [facility] Stop: 07/10/17 08:59 Last Admin: 05/23/17 16:48 Dose: Not Given Duloxetine HCl (Cymbalta) 60 mg PO DAILY DEVAUGHN PRN Reason: Protocol Stop: 07/10/17 08:59 Last Admin: 05/23/17 09:09 Dose: 60 mg Ergocalciferol (Vitamin D) 50,000 iu PO QWED [facility] Stop: 07/09/17 22:14 Last Admin: 05/18/17 16:55 Dose: Not Given Ferrous Sulfate (Iron) 325 mg PO DAILY [facility] Stop: 07/10/17 08:59 Last Admin: 05/23/17 09:09 Dose: 325 mg Fish Oil ([place] 3) 1,000 mg PO DAILY [facility] Stop: 07/10/17 08:59 Last Admin: 05/23/17 09:09 Dose: 1,000 mg Gabapentin (Neurontin) 800 mg PO Q8HR [facility] Stop: 07/10/17 04:59 Last Admin: 05/23/17 16:24 Dose: Not Given Insulin Aspart (Novolog Insulin Sliding Scale) 0 units SUBQ ACHS DEVAUGHN PRN Reason: Protocol Stop: 07/10/17 16:29 Last Admin: 05/23/17 16:48 Dose: 6 units Insulin Detemir (Levemir Insulin) 15 units SUBQ BID@0800,2000 DEVAUGHN PRN Reason: Protocol Stop: 07/14/17 20:59 Last Admin: 05/23/17 09:09 Dose: 15 units Lorazepam (Ativan) 1 mg PO Q4HR PRN; Protocol PRN Reason: Anxiety Stop: 07/17/17 10:33 Last Admin: 05/23/17 16:24 Dose: 1 mg Magnesium Hydroxide (Milk Of Magnesia) 30 ml PO HS PRN PRN Reason: Constipation Stop: 07/09/17 22:15 Mirtazapine (Remeron) 15 mg PO HS DEVAUGHN PRN Reason: Protocol Stop: 07/10/17 20:59 Last Admin: 05/22/17 22:16 Dose: Not Given Pantoprazole Sodium (Protonix) 40 mg PO QDAC [facility]AUGHN Stop: 07/10/17 07:29 Last Admin: 05/23/17 06:37 Dose: 40 mg Trazodone HCl (Desyrel) 100 mg PO HS DEVAUGHN PRN Reason: Protocol Stop: 07/10/17 20:59 Last Admin: 05/22/17 21:18 Dose: Not Given General: alert HEENT: NC/AT, PERRLA Lungs: CTAB Cardiovascular: RRR, Normal S1, Normal S2 Abdomen: soft, non-tender, non-distended, positive bowel sound Neurological: no change Internal Medicine Assmt/Plan - Assessment Assessment: Dehydration (Acute) E86.0 Diabetes (Acute) E11.9 Hypokalemia (Acute) E87.6 Hyponatremia (Acute) E87.1 h/o schizophrenia (Acute) history of psychotic disorder (Acute) history of severe depression (Acute) - Plan Plan: as per psych as problems arise Nutritional Asmnt/Malnutr-PDOC - Dietary Evaluation Malnutrition Findings (Please click <Entered> for more info): Nutritional Asmnt/Malnutrition Start: 05/12/17 10: 51 Text: Status: Complete Freq: Document 05/12/17 10:51 GSUN (Rec: 05/12/17 11:17 GSUN [email or web address]) Nutritional Asmnt/Malnutrition Patient General Information Nutritional Screening Moderate Risk Screening Diagnosis Schizoaffective disorder bipolar type with psychotic features Pertinent Medical Hx/Surgical Hx DM, HTN, esophageal reflux disease, severe hypokalemia, dementia Subjective Information 61 year old female, transfered from [facility]. Pt was soundly asleep during visit, development writer visited twice attempted to wake pt, unsuccessful. Limited physical assessment, no severe muslce fat wasting noted. Avg 67% of meals since adm, meeting 83% of lower end kcal needs. Per [facility] staff, pt was requesting for snacks and ice cream. Few teeth missing. Current Diet Order/ Nutrition Support Low sodium, CCHO Pertinent Medications Vitamin D, Iron, [place] 3, Novolog, Levemir, MOM, Remeron , Protonix Pertinent Labs 05/11: glucose 508H Nutritional Hx/Data Height 1.68 m Height (Calculated Centimeters) 167.6 Current Weight (lbs) 55.474 kg Weight (Calculated Kilograms) 55.5 Weight (Calculated Grams) 93520.3 [place] Body Weight 130 Weight Status Approriate GI Symptoms Food Allergies No Skin Integrity/Comment: Carlos Luna. Skin intact. Current %PO Fair (50-74%) Estimated Nutritional Goals BEE in Kcals: Using Current wt Calories/Kcals/Kg CBW 122.3lb/55.6kg Kcals Calculated 1390-1668kcal (25-30kcla/kg) Protein: Using Current wt Protein Calculated 56g (1g/kg) Fluid: ml 1390-1668ml (1ml/kcal) Nutritional Problem 1. Problem Problem Altered nutrition related laboratory values related to Etiology DM aeb Signs/Symptoms: glucose 508 Intervention/Recommendation Comments 1. Continue with current diet order. Clarify "CCHO" as " [id number]." Avg PO intake is inadequate, meeting 83% lwoer end kcal needs. 2. Provide nutrition edu DM as able, pt was soundly asleep during visit. 3. Monitor glucose, adjust insulin, glucose 508. Expected Outcomes/Goals Expected Outcomes/Goals 1. PO intake continue to meet at least 75% of estimated nutritinoal needs.
[2017-05-24] MEDS: INSULIN ASPART SLIDING SCALE 100 UNITS/ML UNIT SUBQ SCH ×4 (06:43→22:19)
[2017-05-24] MEDS: Pantoprazole 40 mg EC Tab PO SCH (08:23)
[2017-05-24] MEDS: Fish Oil 1,000 MG SGL PO SCH (08:23)
[2017-05-24] MEDS: Ferrous Sulfate 325 MG TAB PO SCH (08:23)
[2017-05-24] MEDS: Insulin Detemir 100 units/mL 10mL Vial SUBQ SCH ×2 (08:23→22:12)
--- NOTE | 2017-05-24 09:53 | General Progress Note ---
Subjective - Review of Systems Events since last encounter: no change no acute distress Objective - Results Result Diagrams: 05/16/17 07:30 Recent Labs: Laboratory Last Values Sodium 135 mEq/L (136-145) L 05/16/17 07:30 Potassium 3.5 mEq/L (3.5-5.1) 05/16/17 07:30 Chloride 104 mEq/L (98-107) 05/16/17 07:30 Carbon Dioxide 27.8 mEq/L (21.0-31.0) 05/16/17 07:30 Anion Gap 6.7 (7.0-16.0) L 05/16/17 07:30 BUN 13 mg/dL (7-25) 05/16/17 07:30 Creatinine 0.8 mg/dL (0.6-1.2) 05/16/17 07:30 Est GFR ( Amer) > 60.0 ml/min (>90) 05/16/17 07:30 Est GFR (Non-Af Amer) > 60.0 ml/min 05/16/17 07:30 BUN/Creatinine Ratio 16.3 05/16/17 07:30 Glucose 90 mg/dL (70-105) 05/16/17 07:30 POC Glucose 180 MG/DL (70 - 105) H 05/24/17 05:56 Calcium 8.2 mg/dL (8.6-10.3) L 05/16/17 07:30 Total Bilirubin 0.3 mg/dL (0.3-1.0) 05/16/17 07:30 AST 94 U/L (13-39) H 05/16/17 07:30 ALT 55 U/L (7-52) H 05/16/17 07:30 Alkaline Phosphatase 73 U/L (34-104) 05/16/17 07:30 Total Protein 4.7 gm/dL (6.0-8.3) L 05/16/17 07:30 Albumin 2.5 gm/dL (3.7-5.3) L 05/16/17 07:30 Globulin 2.2 gm/dL 05/16/17 07:30 Albumin/Globulin Ratio 1.1 (1.0-1.8) 05/16/17 07:30 - Physical Exam Vitals and I&O: Vital Signs Temp 98.0 F 05/24/17 05:55 Pulse 78 05/24/17 05:55 Resp 19 05/24/17 05:55 BP 96/56 05/24/17 05:55 Pulse Ox 96 05/24/17 05:55 Intake & Output 05/23/17 05/24/17 05/24/17 18:59 06:59 18:59 Intake Total 600 Balance 600 Intake: Oral 600 Other: # Voids 1 # Bowel Movements 0 Active Medications: Current Medications Acetaminophen (Tylenol) 650 mg PO Q4H PRN PRN Reason: Mild-Moderate Pain or T >101 Stop: 07/09/17 22:29 Acetaminophen (Tylenol Extra Strength) 500 mg PO Q4H PRN PRN Reason: Pain (Moderate) Stop: 07/09/17 22:30 Al Hydrox/Mg Hydrox/Simethicone (Maalox) 30 ml PO Q4HR PRN PRN Reason: GI DISTRESS Stop: 07/09/17 22:31 Aripiprazole (Abilify) 5 mg PO HS DEVAUGHN PRN Reason: Protocol Stop: 07/18/17 20:59 Last Admin: 05/23/17 21:00 Dose: 5 mg Carvedilol (Coreg) 12.5 mg PO BID [facility] Stop: 07/10/17 08:59 Last Admin: 05/24/17 08:25 Dose: Not Given Duloxetine HCl (Cymbalta) 60 mg PO DAILY DEVAUGHN PRN Reason: Protocol Stop: 07/10/17 08:59 Last Admin: 05/24/17 08:23 Dose: 60 mg Ergocalciferol (Vitamin D) 50,000 iu PO QWED [facility] Stop: 07/09/17 22:14 Last Admin: 05/18/17 16:55 Dose: Not Given Ferrous Sulfate (Iron) 325 mg PO DAILY [facility] Stop: 07/10/17 08:59 Last Admin: 05/24/17 08:23 Dose: 325 mg Fish Oil ([place] 3) 1,000 mg PO DAILY [facility]GHN Stop: 07/10/17 08:59 Last Admin: 05/24/17 08:23 Dose: 1,000 mg Gabapentin (Neurontin) 800 mg PO Q8HR [facility] Stop: 07/10/17 04:59 Last Admin: 05/24/17 06:25 Dose: Not Given Insulin Aspart (Novolog Insulin Sliding Scale) 0 units SUBQ ACHS DEVAUGHN PRN Reason: Protocol Stop: 07/10/17 16:29 Last Admin: 05/24/17 06:43 Dose: Not Given Insulin Detemir (Levemir Insulin) 15 units SUBQ BID@0800,2000 DEVAUGHN PRN Reason: Protocol Stop: 07/14/17 20:59 Last Admin: 05/24/17 08:23 Dose: 15 units Lorazepam (Ativan) 1 mg PO Q4HR PRN; Protocol PRN Reason: Anxiety Stop: 07/17/17 10:33 Last Admin: 05/24/17 09:36 Dose: 1 mg Magnesium Hydroxide (Milk Of Magnesia) 30 ml PO HS PRN PRN Reason: Constipation Stop: 07/09/17 22:15 Mirtazapine (Remeron) 15 mg PO HS DEVAUGHN PRN Reason: Protocol Stop: 07/10/17 20:59 Last Admin: 05/23/17 21:08 Dose: 15 mg Pantoprazole Sodium (Protonix) 40 mg PO QDAC [facility]AUGHN Stop: 07/10/17 07:29 Last Admin: 05/24/17 08:23 Dose: 40 mg Trazodone HCl (Desyrel) 100 mg PO HS DEVAUGHN PRN Reason: Protocol Stop: 07/10/17 20:59 Last Admin: 05/23/17 21:08 Dose: 100 mg General: No acute distress HEENT: Atraumatic, PERRLA Cardiovascular: Regular rate, Normal S1 Lungs: Clear to auscultation Abdomen: Bowel sounds Assessment/Plan - Problem List Patient Problems: All Active Problems Dehydration (Acute) E86.0 Diabetes (Acute) E11.9 Hypokalemia (Acute) E87.6 Hyponatremia (Acute) E87.1 h/o schizophrenia (Acute) history of psychotic disorder (Acute) history of severe depression (Acute) - Assessment Assessment: Dehydration (Acute) E86.0 Diabetes (Acute) E11.9 Hypokalemia (Acute) E87.6 Hyponatremia (Acute) E87.1 h/o schizophrenia (Acute) history of psychotic disorder (Acute) history of severe depression (Acute) - Plan Plan: as per psych as problems arise Nutritional Asmnt/Malnutr-PDOC - Dietary Evaluation Malnutrition Findings (Please click <Entered> for more info): Nutritional Asmnt/Malnutrition Start: 05/12/17 10: 51 Text: Status: Complete Freq: Document 05/12/17 10:51 SUMANPRIYANKA (Rec: 05/12/17 11:17 [email or web address]) Nutritional Asmnt/Malnutrition Patient General Information Nutritional Screening Moderate Risk Screening Diagnosis Schizoaffective disorder bipolar type with psychotic features Pertinent Medical Hx/Surgical Hx DM, HTN, esophageal reflux disease, severe hypokalemia, dementia Subjective Information 61 year old female, transfered from [facility]. Pt was soundly asleep during visit, engineering technical writer visited twice attempted to wake pt, unsuccessful. Limited physical assessment, no severe muslce fat wasting noted. Avg 67% of meals since adm, meeting 83% of lower end kcal needs. Per [facility] staff, pt was requesting for snacks and ice cream. Few teeth missing. Current Diet Order/ Nutrition Support Low sodium, CCHO Pertinent Medications Vitamin D, Iron, [place] 3, Novolog, Levemir, MOM, Remeron , Protonix Pertinent Labs 05/11: glucose 508H Nutritional Hx/Data Height 1.68 m Height (Calculated Centimeters) 167.6 Current Weight (lbs) 55.474 kg Weight (Calculated Kilograms) 55.5 Weight (Calculated Grams) 52789.3 [place] Body Weight 130 Weight Status Approriate GI Symptoms Food Allergies No Skin Integrity/Comment: Carlos 20. Skin intact. Current %PO Fair (50-74%) Estimated Nutritional Goals BEE in Kcals: Using Current wt Calories/Kcals/Kg CBW 122.3lb/55.6kg Kcals Calculated 1390-1668kcal (25-30kcla/kg) Protein: Using Current wt Protein Calculated 56g (1g/kg) Fluid: ml 1390-1668ml (1ml/kcal) Nutritional Problem 1. Problem Problem Altered nutrition related laboratory values related to Etiology DM aeb Signs/Symptoms: glucose 508 Intervention/Recommendation Comments 1. Continue with current diet order. Clarify "CCHO" as " [id number]." Avg PO intake is inadequate, meeting 83% lwoer end kcal needs. 2. Provide nutrition edu DM as able, pt was soundly asleep during visit. 3. Monitor glucose, adjust insulin, glucose 508. Expected Outcomes/Goals Expected Outcomes/Goals 1. PO intake continue to meet at least 75% of estimated nutritinoal needs.
--- NOTE | 2017-05-24 09:53 | General Progress Note ---
Subjective - Review of Systems Events since last encounter: no change no acute distress Objective - Results Result Diagrams: 05/16/17 07:30 Recent Labs: Laboratory Last Values Sodium 135 mEq/L (136-145) L 05/16/17 07:30 Potassium 3.5 mEq/L (3.5-5.1) 05/16/17 07:30 Chloride 104 mEq/L (98-107) 05/16/17 07:30 Carbon Dioxide 27.8 mEq/L (21.0-31.0) 05/16/17 07:30 Anion Gap 6.7 (7.0-16.0) L 05/16/17 07:30 BUN 13 mg/dL (7-25) 05/16/17 07:30 Creatinine 0.8 mg/dL (0.6-1.2) 05/16/17 07:30 Est GFR ( Amer) > 60.0 ml/min (>90) 05/16/17 07:30 Est GFR (Non-Af Amer) > 60.0 ml/min 05/16/17 07:30 BUN/Creatinine Ratio 16.3 05/16/17 07:30 Glucose 90 mg/dL (70-105) 05/16/17 07:30 POC Glucose 180 MG/DL (70 - 105) H 05/24/17 05:56 Calcium 8.2 mg/dL (8.6-10.3) L 05/16/17 07:30 Total Bilirubin 0.3 mg/dL (0.3-1.0) 05/16/17 07:30 AST 94 U/L (13-39) H 05/16/17 07:30 ALT 55 U/L (7-52) H 05/16/17 07:30 Alkaline Phosphatase 73 U/L (34-104) 05/16/17 07:30 Total Protein 4.7 gm/dL (6.0-8.3) L 05/16/17 07:30 Albumin 2.5 gm/dL (3.7-5.3) L 05/16/17 07:30 Globulin 2.2 gm/dL 05/16/17 07:30 Albumin/Globulin Ratio 1.1 (1.0-1.8) 05/16/17 07:30 - Physical Exam Vitals and I&O: Vital Signs Temp 98.0 F 05/24/17 05:55 Pulse 78 05/24/17 05:55 Resp 19 05/24/17 05:55 BP 96/56 05/24/17 05:55 Pulse Ox 96 05/24/17 05:55 Intake & Output 05/23/17 05/24/17 05/24/17 18:59 06:59 18:59 Intake Total 600 Balance 600 Intake: Oral 600 Other: # Voids 1 # Bowel Movements 0 Active Medications: Current Medications Acetaminophen (Tylenol) 650 mg PO Q4H PRN PRN Reason: Mild-Moderate Pain or T >101 Stop: 07/09/17 22:29 Acetaminophen (Tylenol Extra Strength) 500 mg PO Q4H PRN PRN Reason: Pain (Moderate) Stop: 07/09/17 22:30 Al Hydrox/Mg Hydrox/Simethicone (Maalox) 30 ml PO Q4HR PRN PRN Reason: GI DISTRESS Stop: 07/09/17 22:31 Aripiprazole (Abilify) 5 mg PO HS DEVAUGHN PRN Reason: Protocol Stop: 07/18/17 20:59 Last Admin: 05/23/17 21:00 Dose: 5 mg Carvedilol (Coreg) 12.5 mg PO BID [facility] Stop: 07/10/17 08:59 Last Admin: 05/24/17 08:25 Dose: Not Given Duloxetine HCl (Cymbalta) 60 mg PO DAILY DEVAUGHN PRN Reason: Protocol Stop: 07/10/17 08:59 Last Admin: 05/24/17 08:23 Dose: 60 mg Ergocalciferol (Vitamin D) 50,000 iu PO QWED [facility] Stop: 07/09/17 22:14 Last Admin: 05/18/17 16:55 Dose: Not Given Ferrous Sulfate (Iron) 325 mg PO DAILY [facility] Stop: 07/10/17 08:59 Last Admin: 05/24/17 08:23 Dose: 325 mg Fish Oil ([place] 3) 1,000 mg PO DAILY DEVAUGHN Stop: 07/10/17 08:59 Last Admin: 05/24/17 08:23 Dose: 1,000 mg Gabapentin (Neurontin) 800 mg PO Q8HR [facility] Stop: 07/10/17 04:59 Last Admin: 05/24/17 06:25 Dose: Not Given Insulin Aspart (Novolog Insulin Sliding Scale) 0 units SUBQ ACHS DEVAUGHN PRN Reason: Protocol Stop: 07/10/17 16:29 Last Admin: 05/24/17 06:43 Dose: Not Given Insulin Detemir (Levemir Insulin) 15 units SUBQ BID@0800,2000 DEVAUGHN PRN Reason: Protocol Stop: 07/14/17 20:59 Last Admin: 05/24/17 08:23 Dose: 15 units Lorazepam (Ativan) 1 mg PO Q4HR PRN; Protocol PRN Reason: Anxiety Stop: 07/17/17 10:33 Last Admin: 05/24/17 09:36 Dose: 1 mg Magnesium Hydroxide (Milk Of Magnesia) 30 ml PO HS PRN PRN Reason: Constipation Stop: 07/09/17 22:15 Mirtazapine (Remeron) 15 mg PO HS DEVAUGHN PRN Reason: Protocol Stop: 07/10/17 20:59 Last Admin: 05/23/17 21:08 Dose: 15 mg Pantoprazole Sodium (Protonix) 40 mg PO QDAC DEVAUGHN Stop: 07/10/17 07:29 Last Admin: 05/24/17 08:23 Dose: 40 mg Trazodone HCl (Desyrel) 100 mg PO HS DEVAUGHN PRN Reason: Protocol Stop: 07/10/17 20:59 Last Admin: 05/23/17 21:08 Dose: 100 mg General: No acute distress HEENT: Atraumatic, PERRLA Cardiovascular: Regular rate, Normal S1 Lungs: Clear to auscultation Abdomen: Bowel sounds Assessment/Plan - Problem List Patient Problems: All Active Problems Dehydration (Acute) E86.0 Diabetes (Acute) E11.9 Hypokalemia (Acute) E87.6 Hyponatremia (Acute) E87.1 h/o schizophrenia (Acute) history of psychotic disorder (Acute) history of severe depression (Acute) - Assessment Assessment: Dehydration (Acute) E86.0 Diabetes (Acute) E11.9 Hypokalemia (Acute) E87.6 Hyponatremia (Acute) E87.1 h/o schizophrenia (Acute) history of psychotic disorder (Acute) history of severe depression (Acute) - Plan Plan: as per psych as problems arise Nutritional Asmnt/Malnutr-PDOC - Dietary Evaluation Malnutrition Findings (Please click <Entered> for more info): Nutritional Asmnt/Malnutrition Start: 05/12/17 10: 51 Text: Status: Complete Freq: Document 05/12/17 10:51 SUMANPRIYANKA (Rec: 05/12/17 11:17 [email or web address]) Nutritional Asmnt/Malnutrition Patient General Information Nutritional Screening Moderate Risk Screening Diagnosis Schizoaffective disorder bipolar type with psychotic features Pertinent Medical Hx/Surgical Hx DM, HTN, esophageal reflux disease, severe hypokalemia, dementia Subjective Information 61 year old female, transfered from [facility]. Pt was soundly asleep during visit, global technical writer visited twice attempted to wake pt, unsuccessful. Limited physical assessment, no severe muslce fat wasting noted. Avg 67% of meals since adm, meeting 83% of lower end kcal needs. Per [facility] staff, pt was requesting for snacks and ice cream. Few teeth missing. Current Diet Order/ Nutrition Support Low sodium, CCHO Pertinent Medications Vitamin D, Iron, [place] 3, Novolog, Levemir, MOM, Remeron , Protonix Pertinent Labs 05/11: glucose 508H Nutritional Hx/Data Height 1.68 m Height (Calculated Centimeters) 167.6 Current Weight (lbs) 55.474 kg Weight (Calculated Kilograms) 55.5 Weight (Calculated Grams) 11369.3 [place] Body Weight 130 Weight Status Approriate GI Symptoms Food Allergies No Skin Integrity/Comment: Carlos 20. Skin intact. Current %PO Fair (50-74%) Estimated Nutritional Goals BEE in Kcals: Using Current wt Calories/Kcals/Kg CBW 122.3lb/55.6kg Kcals Calculated 1390-1668kcal (25-30kcla/kg) Protein: Using Current wt Protein Calculated 56g (1g/kg) Fluid: ml 1390-1668ml (1ml/kcal) Nutritional Problem 1. Problem Problem Altered nutrition related laboratory values related to Etiology DM aeb Signs/Symptoms: glucose 508 Intervention/Recommendation Comments 1. Continue with current diet order. Clarify "CCHO" as " [id number]." Avg PO intake is inadequate, meeting 83% lwoer end kcal needs. 2. Provide nutrition edu DM as able, pt was soundly asleep during visit. 3. Monitor glucose, adjust insulin, glucose 508. Expected Outcomes/Goals Expected Outcomes/Goals 1. PO intake continue to meet at least 75% of estimated nutritinoal needs.
--- NOTE | 2017-05-24 09:53 | General Progress Note ---
Subjective - Review of Systems Events since last encounter: no change no acute distress Objective - Results Result Diagrams: 05/16/17 07:30 Recent Labs: Laboratory Last Values Sodium 135 mEq/L (136-145) L 05/16/17 07:30 Potassium 3.5 mEq/L (3.5-5.1) 05/16/17 07:30 Chloride 104 mEq/L (98-107) 05/16/17 07:30 Carbon Dioxide 27.8 mEq/L (21.0-31.0) 05/16/17 07:30 Anion Gap 6.7 (7.0-16.0) L 05/16/17 07:30 BUN 13 mg/dL (7-25) 05/16/17 07:30 Creatinine 0.8 mg/dL (0.6-1.2) 05/16/17 07:30 Est GFR ( Amer) > 60.0 ml/min (>90) 05/16/17 07:30 Est GFR (Non-Af Amer) > 60.0 ml/min 05/16/17 07:30 BUN/Creatinine Ratio 16.3 05/16/17 07:30 Glucose 90 mg/dL (70-105) 05/16/17 07:30 POC Glucose 180 MG/DL (70 - 105) H 05/24/17 05:56 Calcium 8.2 mg/dL (8.6-10.3) L 05/16/17 07:30 Total Bilirubin 0.3 mg/dL (0.3-1.0) 05/16/17 07:30 AST 94 U/L (13-39) H 05/16/17 07:30 ALT 55 U/L (7-52) H 05/16/17 07:30 Alkaline Phosphatase 73 U/L (34-104) 05/16/17 07:30 Total Protein 4.7 gm/dL (6.0-8.3) L 05/16/17 07:30 Albumin 2.5 gm/dL (3.7-5.3) L 05/16/17 07:30 Globulin 2.2 gm/dL 05/16/17 07:30 Albumin/Globulin Ratio 1.1 (1.0-1.8) 05/16/17 07:30 - Physical Exam Vitals and I&O: Vital Signs Temp 98.0 F 05/24/17 05:55 Pulse 78 05/24/17 05:55 Resp 19 05/24/17 05:55 BP 96/56 05/24/17 05:55 Pulse Ox 96 05/24/17 05:55 Intake & Output 05/23/17 05/24/17 05/24/17 18:59 06:59 18:59 Intake Total 600 Balance 600 Intake: Oral 600 Other: # Voids 1 # Bowel Movements 0 Active Medications: Current Medications Acetaminophen (Tylenol) 650 mg PO Q4H PRN PRN Reason: Mild-Moderate Pain or T >101 Stop: 07/09/17 22:29 Acetaminophen (Tylenol Extra Strength) 500 mg PO Q4H PRN PRN Reason: Pain (Moderate) Stop: 07/09/17 22:30 Al Hydrox/Mg Hydrox/Simethicone (Maalox) 30 ml PO Q4HR PRN PRN Reason: GI DISTRESS Stop: 07/09/17 22:31 Aripiprazole (Abilify) 5 mg PO HS DEVAUGHN PRN Reason: Protocol Stop: 07/18/17 20:59 Last Admin: 05/23/17 21:00 Dose: 5 mg Carvedilol (Coreg) 12.5 mg PO BID [facility] Stop: 07/10/17 08:59 Last Admin: 05/24/17 08:25 Dose: Not Given Duloxetine HCl (Cymbalta) 60 mg PO DAILY DEVAUGHN PRN Reason: Protocol Stop: 07/10/17 08:59 Last Admin: 05/24/17 08:23 Dose: 60 mg Ergocalciferol (Vitamin D) 50,000 iu PO QWED [facility] Stop: 07/09/17 22:14 Last Admin: 05/18/17 16:55 Dose: Not Given Ferrous Sulfate (Iron) 325 mg PO DAILY [facility] Stop: 07/10/17 08:59 Last Admin: 05/24/17 08:23 Dose: 325 mg Fish Oil (Alliance 3) 1,000 mg PO DAILY DEVAUGHN Stop: 07/10/17 08:59 Last Admin: 05/24/17 08:23 Dose: 1,000 mg Gabapentin (Neurontin) 800 mg PO Q8HR [facility] Stop: 07/10/17 04:59 Last Admin: 05/24/17 06:25 Dose: Not Given Insulin Aspart (Novolog Insulin Sliding Scale) 0 units SUBQ ACHS DEVAUGHN PRN Reason: Protocol Stop: 07/10/17 16:29 Last Admin: 05/24/17 06:43 Dose: Not Given Insulin Detemir (Levemir Insulin) 15 units SUBQ BID@0800,2000 DEVAUGHN PRN Reason: Protocol Stop: 07/14/17 20:59 Last Admin: 05/24/17 08:23 Dose: 15 units Lorazepam (Ativan) 1 mg PO Q4HR PRN; Protocol PRN Reason: Anxiety Stop: 07/17/17 10:33 Last Admin: 05/24/17 09:36 Dose: 1 mg Magnesium Hydroxide (Milk Of Magnesia) 30 ml PO HS PRN PRN Reason: Constipation Stop: 07/09/17 22:15 Mirtazapine (Remeron) 15 mg PO HS DEVAUGHN PRN Reason: Protocol Stop: 07/10/17 20:59 Last Admin: 05/23/17 21:08 Dose: 15 mg Pantoprazole Sodium (Protonix) 40 mg PO QDAC DEVAUGHN Stop: 07/10/17 07:29 Last Admin: 05/24/17 08:23 Dose: 40 mg Trazodone HCl (Desyrel) 100 mg PO HS DEVAUGHN PRN Reason: Protocol Stop: 07/10/17 20:59 Last Admin: 05/23/17 21:08 Dose: 100 mg General: No acute distress HEENT: Atraumatic, PERRLA Cardiovascular: Regular rate, Normal S1 Lungs: Clear to auscultation Abdomen: Bowel sounds Assessment/Plan - Problem List Patient Problems: All Active Problems Dehydration (Acute) E86.0 Diabetes (Acute) E11.9 Hypokalemia (Acute) E87.6 Hyponatremia (Acute) E87.1 h/o schizophrenia (Acute) history of psychotic disorder (Acute) history of severe depression (Acute) - Assessment Assessment: Dehydration (Acute) E86.0 Diabetes (Acute) E11.9 Hypokalemia (Acute) E87.6 Hyponatremia (Acute) E87.1 h/o schizophrenia (Acute) history of psychotic disorder (Acute) history of severe depression (Acute) - Plan Plan: as per psych as problems arise Nutritional Asmnt/Malnutr-PDOC - Dietary Evaluation Malnutrition Findings (Please click <Entered> for more info): Nutritional Asmnt/Malnutrition Start: 05/12/17 10: 51 Text: Status: Complete Freq: Document 05/12/17 10:51 SUMANPRIYANKA (Rec: 05/12/17 11:17 [email or web address]) Nutritional Asmnt/Malnutrition Patient General Information Nutritional Screening Moderate Risk Screening Diagnosis Schizoaffective disorder bipolar type with psychotic features Pertinent Medical Hx/Surgical Hx DM, HTN, esophageal reflux disease, severe hypokalemia, dementia Subjective Information 61 year old female, transfered from [facility]. Pt was soundly asleep during visit, machine sign writer visited twice attempted to wake pt, unsuccessful. Limited physical assessment, no severe muslce fat wasting noted. Avg 67% of meals since adm, meeting 83% of lower end kcal needs. Per [facility] staff, pt was requesting for snacks and ice cream. Few teeth missing. Current Diet Order/ Nutrition Support Low sodium, CCHO Pertinent Medications Vitamin D, Iron, Alliance 3, Novolog, Levemir, MOM, Remeron , Protonix Pertinent Labs 05/11: glucose 508H Nutritional Hx/Data Height 1.68 m Height (Calculated Centimeters) 167.6 Current Weight (lbs) 55.474 kg Weight (Calculated Kilograms) 55.5 Weight (Calculated Grams) 52998.3 [place] Body Weight 130 Weight Status Approriate GI Symptoms Food Allergies No Skin Integrity/Comment: Carlos 20. Skin intact. Current %PO Fair (50-74%) Estimated Nutritional Goals BEE in Kcals: Using Current wt Calories/Kcals/Kg CBW 122.3lb/55.6kg Kcals Calculated 1390-1668kcal (25-30kcla/kg) Protein: Using Current wt Protein Calculated 56g (1g/kg) Fluid: ml 1390-1668ml (1ml/kcal) Nutritional Problem 1. Problem Problem Altered nutrition related laboratory values related to Etiology DM aeb Signs/Symptoms: glucose 508 Intervention/Recommendation Comments 1. Continue with current diet order. Clarify "CCHO" as " [id number]." Avg PO intake is inadequate, meeting 83% lwoer end kcal needs. 2. Provide nutrition edu DM as able, pt was soundly asleep during visit. 3. Monitor glucose, adjust insulin, glucose 508. Expected Outcomes/Goals Expected Outcomes/Goals 1. PO intake continue to meet at least 75% of estimated nutritinoal needs.
--- NOTE | 2017-05-24 18:32 | Progress Notes ---
DATE: SUBJECTIVE: Chart reviewed and the patient interviewed. Also discussed the patient's condition with the staff and reviewed records and labs. The patient is still anxious and is still suspicious and paranoid. The patient also still seems to be actively responding to stimuli. The patient also still needs lots of redirections because of her forgetfulness and because of her confusion. Otherwise, the patient is compliant with taking her medications with no side effects of medications. ASSESSMENT: The patient is still confused and needs lots of redirections. TREATMENT PLAN: We will continue to monitor her behavior and her condition closely. Also, continue adjusting psychotropic medications and followup. JOB# [id number]
--- NOTE | 2017-05-25 04:04 | Progress Notes ---
DATE: SUBJECTIVE: Chart reviewed and the patient interviewed. Also, discussed the patient's condition with the staff and reviewed records and labs. The patient is still anxious and is still in a depressed mood. The patient also is still easily agitated and still has episodes of anger and irritability. The patient also still wants to be left alone and is still suspicious. She needs lots of redirections. ASSESSMENT: The patient is still psychotic and is still irritable and agitated. TREATMENT PLAN: We will continue to monitor her behavior and her condition closely. Also, we will continue to work on her ineffective coping and we will continue to follow up closely. Also, working on discharge plans. JOB# [id number]
[2017-05-25] MEDS: INSULIN ASPART SLIDING SCALE 100 UNITS/ML UNIT SUBQ SCH ×4 (06:50→21:26)
--- NOTE | 2017-05-25 09:21 | General Progress Note ---
Subjective - Review of Systems Events since last encounter: patient still irritable in no acute distress Objective - Results Result Diagrams: 05/16/17 07:30 Recent Labs: Laboratory Last Values Sodium 135 mEq/L (136-145) L 05/16/17 07:30 Potassium 3.5 mEq/L (3.5-5.1) 05/16/17 07:30 Chloride 104 mEq/L (98-107) 05/16/17 07:30 Carbon Dioxide 27.8 mEq/L (21.0-31.0) 05/16/17 07:30 Anion Gap 6.7 (7.0-16.0) L 05/16/17 07:30 BUN 13 mg/dL (7-25) 05/16/17 07:30 Creatinine 0.8 mg/dL (0.6-1.2) 05/16/17 07:30 Est GFR ( Amer) > 60.0 ml/min (>90) 05/16/17 07:30 Est GFR (Non-Af Amer) > 60.0 ml/min 05/16/17 07:30 BUN/Creatinine Ratio 16.3 05/16/17 07:30 Glucose 90 mg/dL (70-105) 05/16/17 07:30 POC Glucose 319 MG/DL (70 - 105) H 05/25/17 05:38 Calcium 8.2 mg/dL (8.6-10.3) L 05/16/17 07:30 Total Bilirubin 0.3 mg/dL (0.3-1.0) 05/16/17 07:30 AST 94 U/L (13-39) H 05/16/17 07:30 ALT 55 U/L (7-52) H 05/16/17 07:30 Alkaline Phosphatase 73 U/L (34-104) 05/16/17 07:30 Total Protein 4.7 gm/dL (6.0-8.3) L 05/16/17 07:30 Albumin 2.5 gm/dL (3.7-5.3) L 05/16/17 07:30 Globulin 2.2 gm/dL 05/16/17 07:30 Albumin/Globulin Ratio 1.1 (1.0-1.8) 05/16/17 07:30 - Physical Exam Vitals and I&O: Vital Signs Temp 98.6 F 05/25/17 06:00 Pulse 82 05/25/17 06:00 Resp 17 05/25/17 06:00 BP 113/56 05/25/17 06:00 Pulse Ox 97 05/25/17 06:00 Active Medications: Current Medications Acetaminophen (Tylenol) 650 mg PO Q4H PRN PRN Reason: Mild-Moderate Pain or T >101 Stop: 07/09/17 22:29 Acetaminophen (Tylenol Extra Strength) 500 mg PO Q4H PRN PRN Reason: Pain (Moderate) Stop: 07/09/17 22:30 Al Hydrox/Mg Hydrox/Simethicone (Maalox) 30 ml PO Q4HR PRN PRN Reason: GI DISTRESS Stop: 07/09/17 22:31 Aripiprazole (Abilify) 15 mg PO HS DEVAUGHN PRN Reason: Protocol Stop: 07/24/17 06:15 Carvedilol (Coreg) 12.5 mg PO BID [facility] Stop: 07/10/17 08:59 Last Admin: 05/24/17 16:43 Dose: Not Given Duloxetine HCl (Cymbalta) 60 mg PO DAILY DEVAUGHN PRN Reason: Protocol Stop: 07/10/17 08:59 Last Admin: 05/24/17 08:23 Dose: 60 mg Ergocalciferol (Vitamin D) 50,000 iu PO QWED [facility] Stop: 07/09/17 22:14 Last Admin: 05/18/17 16:55 Dose: Not Given Ferrous Sulfate (Iron) 325 mg PO DAILY [facility] Stop: 07/10/17 08:59 Last Admin: 05/24/17 08:23 Dose: 325 mg Fish Oil ([place] 3) 1,000 mg PO DAILY [facility] Stop: 07/10/17 08:59 Last Admin: 05/24/17 08:23 Dose: 1,000 mg Gabapentin (Neurontin) 800 mg PO Q8HR [facility] Stop: 07/10/17 04:59 Last Admin: 05/25/17 05:41 Dose: 800 mg Insulin Aspart (Novolog Insulin Sliding Scale) 0 units SUBQ ACHS DEVAUGHN PRN Reason: Protocol Stop: 07/10/17 16:29 Last Admin: 05/25/17 06:50 Dose: 8 units Insulin Detemir (Levemir Insulin) 15 units SUBQ BID@0800,2000 DEVAUGHN PRN Reason: Protocol Stop: 07/14/17 20:59 Last Admin: 05/24/17 22:12 Dose: Not Given Lorazepam (Ativan) 1 mg PO Q4HR PRN; Protocol PRN Reason: Anxiety Stop: 07/17/17 10:33 Last Admin: 05/24/17 09:36 Dose: 1 mg Magnesium Hydroxide (Milk Of Magnesia) 30 ml PO HS PRN PRN Reason: Constipation Stop: 07/09/17 22:15 Pantoprazole Sodium (Protonix) 40 mg PO QDAC DEVAUGHN Stop: 07/10/17 07:29 Last Admin: 05/24/17 08:23 Dose: 40 mg Trazodone HCl (Desyrel) 100 mg PO HS DEVAUGHN PRN Reason: Protocol Stop: 07/10/17 20:59 Last Admin: 05/24/17 21:00 Dose: Not Given General: No acute distress HEENT: Atraumatic, PERRLA Cardiovascular: Regular rate, Normal S1 Lungs: Clear to auscultation Abdomen: Bowel sounds Assessment/Plan - Problem List Patient Problems: All Active Problems Dehydration (Acute) E86.0 Diabetes (Acute) E11.9 Hypokalemia (Acute) E87.6 Hyponatremia (Acute) E87.1 h/o schizophrenia (Acute) history of psychotic disorder (Acute) history of severe depression (Acute) - Assessment Assessment: Dehydration (Acute) E86.0 Diabetes (Acute) E11.9 Hypokalemia (Acute) E87.6 Hyponatremia (Acute) E87.1 h/o schizophrenia (Acute) history of psychotic disorder (Acute) history of severe depression (Acute) - Plan Plan: as per psych as problems arise Nutritional Asmnt/Malnutr-PDOC - Dietary Evaluation Malnutrition Findings (Please click <Entered> for more info): Nutritional Asmnt/Malnutrition Start: 05/12/17 10: 51 Text: Status: Complete Freq: Document 05/12/17 10:51 GSUN (Rec: 05/12/17 11:17 SEFERINO [email or web address]) Nutritional Asmnt/Malnutrition Patient General Information Nutritional Screening Moderate Risk Screening Diagnosis Schizoaffective disorder bipolar type with psychotic features Pertinent Medical Hx/Surgical Hx DM, HTN, esophageal reflux disease, severe hypokalemia, dementia Subjective Information 61 year old female, transfered from [facility]. Pt was soundly asleep during visit, credit underwriter visited twice attempted to wake pt, unsuccessful. Limited physical assessment, no severe muslce fat wasting noted. Avg 67% of meals since adm, meeting 83% of lower end kcal needs. Per [facility] staff, pt was requesting for snacks and ice cream. Few teeth missing. Current Diet Order/ Nutrition Support Low sodium, CCHO Pertinent Medications Vitamin D, Iron, [place] 3, Novolog, Levemir, MOM, Remeron , Protonix Pertinent Labs 05/11: glucose 508H Nutritional Hx/Data Height 1.68 m Height (Calculated Centimeters) 167.6 Current Weight (lbs) 55.474 kg Weight (Calculated Kilograms) 55.5 Weight (Calculated Grams) 42164.3 [place] Body Weight 130 Weight Status Approriate GI Symptoms Food Allergies No Skin Integrity/Comment: Carlos 20. Skin intact. Current %PO Fair (50-74%) Estimated Nutritional Goals BEE in Kcals: Using Current wt Calories/Kcals/Kg CBW 122.3lb/55.6kg Kcals Calculated 1390-1668kcal (25-30kcla/kg) Protein: Using Current wt Protein Calculated 56g (1g/kg) Fluid: ml 1390-1668ml (1ml/kcal) Nutritional Problem 1. Problem Problem Altered nutrition related laboratory values related to Etiology DM aeb Signs/Symptoms: glucose 508 Intervention/Recommendation Comments 1. Continue with current diet order. Clarify "CCHO" as " [id number]." Avg PO intake is inadequate, meeting 83% lwoer end kcal needs. 2. Provide nutrition edu DM as able, pt was soundly asleep during visit. 3. Monitor glucose, adjust insulin, glucose 508. Expected Outcomes/Goals Expected Outcomes/Goals 1. PO intake continue to meet at least 75% of estimated nutritinoal needs.
--- NOTE | 2017-05-25 09:21 | General Progress Note ---
Subjective - Review of Systems Events since last encounter: patient still irritable in no acute distress Objective - Results Result Diagrams: 05/16/17 07:30 Recent Labs: Laboratory Last Values Sodium 135 mEq/L (136-145) L 05/16/17 07:30 Potassium 3.5 mEq/L (3.5-5.1) 05/16/17 07:30 Chloride 104 mEq/L (98-107) 05/16/17 07:30 Carbon Dioxide 27.8 mEq/L (21.0-31.0) 05/16/17 07:30 Anion Gap 6.7 (7.0-16.0) L 05/16/17 07:30 BUN 13 mg/dL (7-25) 05/16/17 07:30 Creatinine 0.8 mg/dL (0.6-1.2) 05/16/17 07:30 Est GFR ( Amer) > 60.0 ml/min (>90) 05/16/17 07:30 Est GFR (Non-Af Amer) > 60.0 ml/min 05/16/17 07:30 BUN/Creatinine Ratio 16.3 05/16/17 07:30 Glucose 90 mg/dL (70-105) 05/16/17 07:30 POC Glucose 319 MG/DL (70 - 105) H 05/25/17 05:38 Calcium 8.2 mg/dL (8.6-10.3) L 05/16/17 07:30 Total Bilirubin 0.3 mg/dL (0.3-1.0) 05/16/17 07:30 AST 94 U/L (13-39) H 05/16/17 07:30 ALT 55 U/L (7-52) H 05/16/17 07:30 Alkaline Phosphatase 73 U/L (34-104) 05/16/17 07:30 Total Protein 4.7 gm/dL (6.0-8.3) L 05/16/17 07:30 Albumin 2.5 gm/dL (3.7-5.3) L 05/16/17 07:30 Globulin 2.2 gm/dL 05/16/17 07:30 Albumin/Globulin Ratio 1.1 (1.0-1.8) 05/16/17 07:30 - Physical Exam Vitals and I&O: Vital Signs Temp 98.6 F 05/25/17 06:00 Pulse 82 05/25/17 06:00 Resp 17 05/25/17 06:00 BP 113/56 05/25/17 06:00 Pulse Ox 97 05/25/17 06:00 Active Medications: Current Medications Acetaminophen (Tylenol) 650 mg PO Q4H PRN PRN Reason: Mild-Moderate Pain or T >101 Stop: 07/09/17 22:29 Acetaminophen (Tylenol Extra Strength) 500 mg PO Q4H PRN PRN Reason: Pain (Moderate) Stop: 07/09/17 22:30 Al Hydrox/Mg Hydrox/Simethicone (Maalox) 30 ml PO Q4HR PRN PRN Reason: GI DISTRESS Stop: 07/09/17 22:31 Aripiprazole (Abilify) 15 mg PO HS [facility]N PRN Reason: Protocol Stop: 07/24/17 06:15 Carvedilol (Coreg) 12.5 mg PO BID [facility] Stop: 07/10/17 08:59 Last Admin: 05/24/17 16:43 Dose: Not Given Duloxetine HCl (Cymbalta) 60 mg PO DAILY [facility]N PRN Reason: Protocol Stop: 07/10/17 08:59 Last Admin: 05/24/17 08:23 Dose: 60 mg Ergocalciferol (Vitamin D) 50,000 iu PO QWED [facility] Stop: 07/09/17 22:14 Last Admin: 05/18/17 16:55 Dose: Not Given Ferrous Sulfate (Iron) 325 mg PO DAILY [facility] Stop: 07/10/17 08:59 Last Admin: 05/24/17 08:23 Dose: 325 mg Fish Oil ([place] 3) 1,000 mg PO DAILY [facility] Stop: 07/10/17 08:59 Last Admin: 05/24/17 08:23 Dose: 1,000 mg Gabapentin (Neurontin) 800 mg PO Q8HR [facility] Stop: 07/10/17 04:59 Last Admin: 05/25/17 05:41 Dose: 800 mg Insulin Aspart (Novolog Insulin Sliding Scale) 0 units SUBQ ACHS [facility] PRN Reason: Protocol Stop: 07/10/17 16:29 Last Admin: 05/25/17 06:50 Dose: 8 units Insulin Detemir (Levemir Insulin) 15 units SUBQ BID@0800,2000 [facility] PRN Reason: Protocol Stop: 07/14/17 20:59 Last Admin: 05/24/17 22:12 Dose: Not Given Lorazepam (Ativan) 1 mg PO Q4HR PRN; Protocol PRN Reason: Anxiety Stop: 07/17/17 10:33 Last Admin: 05/24/17 09:36 Dose: 1 mg Magnesium Hydroxide (Milk Of Magnesia) 30 ml PO HS PRN PRN Reason: Constipation Stop: 07/09/17 22:15 Pantoprazole Sodium (Protonix) 40 mg PO QDAC [facility] Stop: 07/10/17 07:29 Last Admin: 05/24/17 08:23 Dose: 40 mg Trazodone HCl (Desyrel) 100 mg PO HS [facility] PRN Reason: Protocol Stop: 07/10/17 20:59 Last Admin: 05/24/17 21:00 Dose: Not Given General: No acute distress HEENT: Atraumatic, PERRLA Cardiovascular: Regular rate, Normal S1 Lungs: Clear to auscultation Abdomen: Bowel sounds Assessment/Plan - Problem List Patient Problems: All Active Problems Dehydration (Acute) E86.0 Diabetes (Acute) E11.9 Hypokalemia (Acute) E87.6 Hyponatremia (Acute) E87.1 h/o schizophrenia (Acute) history of psychotic disorder (Acute) history of severe depression (Acute) - Assessment Assessment: Dehydration (Acute) E86.0 Diabetes (Acute) E11.9 Hypokalemia (Acute) E87.6 Hyponatremia (Acute) E87.1 h/o schizophrenia (Acute) history of psychotic disorder (Acute) history of severe depression (Acute) - Plan Plan: as per psych as problems arise Nutritional Asmnt/Malnutr-PDOC - Dietary Evaluation Malnutrition Findings (Please click <Entered> for more info): Nutritional Asmnt/Malnutrition Start: 05/12/17 10: 51 Text: Status: Complete Freq: Document 05/12/17 10:51 GSUN (Rec: 05/12/17 11:17 SEFERINO [email or web address]) Nutritional Asmnt/Malnutrition Patient General Information Nutritional Screening Moderate Risk Screening Diagnosis Schizoaffective disorder bipolar type with psychotic features Pertinent Medical Hx/Surgical Hx DM, HTN, esophageal reflux disease, severe hypokalemia, dementia Subjective Information 61 year old female, transfered from [facility]. Pt was soundly asleep during visit, newspaper writer visited twice attempted to wake pt, unsuccessful. Limited physical assessment, no severe muslce fat wasting noted. Avg 67% of meals since adm, meeting 83% of lower end kcal needs. Per [facility] staff, pt was requesting for snacks and ice cream. Few teeth missing. Current Diet Order/ Nutrition Support Low sodium, CCHO Pertinent Medications Vitamin D, Iron, [place] 3, Novolog, Levemir, MOM, Remeron , Protonix Pertinent Labs 05/11: glucose 508H Nutritional Hx/Data Height 1.68 m Height (Calculated Centimeters) 167.6 Current Weight (lbs) 55.474 kg Weight (Calculated Kilograms) 55.5 Weight (Calculated Grams) 63095.3 [place] Body Weight 130 Weight Status Approriate GI Symptoms Food Allergies No Skin Integrity/Comment: Carlos 20. Skin intact. Current %PO Fair (50-74%) Estimated Nutritional Goals BEE in Kcals: Using Current wt Calories/Kcals/Kg CBW 122.3lb/55.6kg Kcals Calculated 1390-1668kcal (25-30kcla/kg) Protein: Using Current wt Protein Calculated 56g (1g/kg) Fluid: ml 1390-1668ml (1ml/kcal) Nutritional Problem 1. Problem Problem Altered nutrition related laboratory values related to Etiology DM aeb Signs/Symptoms: glucose 508 Intervention/Recommendation Comments 1. Continue with current diet order. Clarify "CCHO" as " [id number]." Avg PO intake is inadequate, meeting 83% lwoer end kcal needs. 2. Provide nutrition edu DM as able, pt was soundly asleep during visit. 3. Monitor glucose, adjust insulin, glucose 508. Expected Outcomes/Goals Expected Outcomes/Goals 1. PO intake continue to meet at least 75% of estimated nutritinoal needs.
--- NOTE | 2017-05-25 09:21 | General Progress Note ---
Subjective - Review of Systems Events since last encounter: patient still irritable in no acute distress Objective - Results Result Diagrams: 05/16/17 07:30 Recent Labs: Laboratory Last Values Sodium 135 mEq/L (136-145) L 05/16/17 07:30 Potassium 3.5 mEq/L (3.5-5.1) 05/16/17 07:30 Chloride 104 mEq/L (98-107) 05/16/17 07:30 Carbon Dioxide 27.8 mEq/L (21.0-31.0) 05/16/17 07:30 Anion Gap 6.7 (7.0-16.0) L 05/16/17 07:30 BUN 13 mg/dL (7-25) 05/16/17 07:30 Creatinine 0.8 mg/dL (0.6-1.2) 05/16/17 07:30 Est GFR ( Amer) > 60.0 ml/min (>90) 05/16/17 07:30 Est GFR (Non-Af Amer) > 60.0 ml/min 05/16/17 07:30 BUN/Creatinine Ratio 16.3 05/16/17 07:30 Glucose 90 mg/dL (70-105) 05/16/17 07:30 POC Glucose 319 MG/DL (70 - 105) H 05/25/17 05:38 Calcium 8.2 mg/dL (8.6-10.3) L 05/16/17 07:30 Total Bilirubin 0.3 mg/dL (0.3-1.0) 05/16/17 07:30 AST 94 U/L (13-39) H 05/16/17 07:30 ALT 55 U/L (7-52) H 05/16/17 07:30 Alkaline Phosphatase 73 U/L (34-104) 05/16/17 07:30 Total Protein 4.7 gm/dL (6.0-8.3) L 05/16/17 07:30 Albumin 2.5 gm/dL (3.7-5.3) L 05/16/17 07:30 Globulin 2.2 gm/dL 05/16/17 07:30 Albumin/Globulin Ratio 1.1 (1.0-1.8) 05/16/17 07:30 - Physical Exam Vitals and I&O: Vital Signs Temp 98.6 F 05/25/17 06:00 Pulse 82 05/25/17 06:00 Resp 17 05/25/17 06:00 BP 113/56 05/25/17 06:00 Pulse Ox 97 05/25/17 06:00 Active Medications: Current Medications Acetaminophen (Tylenol) 650 mg PO Q4H PRN PRN Reason: Mild-Moderate Pain or T >101 Stop: 07/09/17 22:29 Acetaminophen (Tylenol Extra Strength) 500 mg PO Q4H PRN PRN Reason: Pain (Moderate) Stop: 07/09/17 22:30 Al Hydrox/Mg Hydrox/Simethicone (Maalox) 30 ml PO Q4HR PRN PRN Reason: GI DISTRESS Stop: 07/09/17 22:31 Aripiprazole (Abilify) 15 mg PO HS [facility] PRN Reason: Protocol Stop: 07/24/17 06:15 Carvedilol (Coreg) 12.5 mg PO BID [facility] Stop: 07/10/17 08:59 Last Admin: 05/24/17 16:43 Dose: Not Given Duloxetine HCl (Cymbalta) 60 mg PO DAILY [facility] PRN Reason: Protocol Stop: 07/10/17 08:59 Last Admin: 05/24/17 08:23 Dose: 60 mg Ergocalciferol (Vitamin D) 50,000 iu PO QWED [facility] Stop: 07/09/17 22:14 Last Admin: 05/18/17 16:55 Dose: Not Given Ferrous Sulfate (Iron) 325 mg PO DAILY [facility] Stop: 07/10/17 08:59 Last Admin: 05/24/17 08:23 Dose: 325 mg Fish Oil ([place] 3) 1,000 mg PO DAILY [facility] Stop: 07/10/17 08:59 Last Admin: 05/24/17 08:23 Dose: 1,000 mg Gabapentin (Neurontin) 800 mg PO Q8HR [facility] Stop: 07/10/17 04:59 Last Admin: 05/25/17 05:41 Dose: 800 mg Insulin Aspart (Novolog Insulin Sliding Scale) 0 units SUBQ ACHS [facility] PRN Reason: Protocol Stop: 07/10/17 16:29 Last Admin: 05/25/17 06:50 Dose: 8 units Insulin Detemir (Levemir Insulin) 15 units SUBQ BID@0800,2000 [facility] PRN Reason: Protocol Stop: 07/14/17 20:59 Last Admin: 05/24/17 22:12 Dose: Not Given Lorazepam (Ativan) 1 mg PO Q4HR PRN; Protocol PRN Reason: Anxiety Stop: 07/17/17 10:33 Last Admin: 05/24/17 09:36 Dose: 1 mg Magnesium Hydroxide (Milk Of Magnesia) 30 ml PO HS PRN PRN Reason: Constipation Stop: 07/09/17 22:15 Pantoprazole Sodium (Protonix) 40 mg PO QDAC [facility] Stop: 07/10/17 07:29 Last Admin: 05/24/17 08:23 Dose: 40 mg Trazodone HCl (Desyrel) 100 mg PO HS [facility] PRN Reason: Protocol Stop: 07/10/17 20:59 Last Admin: 05/24/17 21:00 Dose: Not Given General: No acute distress HEENT: Atraumatic, PERRLA Cardiovascular: Regular rate, Normal S1 Lungs: Clear to auscultation Abdomen: Bowel sounds Assessment/Plan - Problem List Patient Problems: All Active Problems Dehydration (Acute) E86.0 Diabetes (Acute) E11.9 Hypokalemia (Acute) E87.6 Hyponatremia (Acute) E87.1 h/o schizophrenia (Acute) history of psychotic disorder (Acute) history of severe depression (Acute) - Assessment Assessment: Dehydration (Acute) E86.0 Diabetes (Acute) E11.9 Hypokalemia (Acute) E87.6 Hyponatremia (Acute) E87.1 h/o schizophrenia (Acute) history of psychotic disorder (Acute) history of severe depression (Acute) - Plan Plan: as per psych as problems arise Nutritional Asmnt/Malnutr-PDOC - Dietary Evaluation Malnutrition Findings (Please click <Entered> for more info): Nutritional Asmnt/Malnutrition Start: 05/12/17 10: 51 Text: Status: Complete Freq: Document 05/12/17 10:51 GSUN (Rec: 05/12/17 11:17 SEFERINO [email or web address]) Nutritional Asmnt/Malnutrition Patient General Information Nutritional Screening Moderate Risk Screening Diagnosis Schizoaffective disorder bipolar type with psychotic features Pertinent Medical Hx/Surgical Hx DM, HTN, esophageal reflux disease, severe hypokalemia, dementia Subjective Information 61 year old female, transfered from [facility]. Pt was soundly asleep during visit, senior technical writer visited twice attempted to wake pt, unsuccessful. Limited physical assessment, no severe muslce fat wasting noted. Avg 67% of meals since adm, meeting 83% of lower end kcal needs. Per [facility] staff, pt was requesting for snacks and ice cream. Few teeth missing. Current Diet Order/ Nutrition Support Low sodium, CCHO Pertinent Medications Vitamin D, Iron, [place] 3, Novolog, Levemir, MOM, Remeron , Protonix Pertinent Labs 05/11: glucose 508H Nutritional Hx/Data Height 1.68 m Height (Calculated Centimeters) 167.6 Current Weight (lbs) 55.474 kg Weight (Calculated Kilograms) 55.5 Weight (Calculated Grams) 87696.3 [place] Body Weight 130 Weight Status Approriate GI Symptoms Food Allergies No Skin Integrity/Comment: Carlos 20. Skin intact. Current %PO Fair (50-74%) Estimated Nutritional Goals BEE in Kcals: Using Current wt Calories/Kcals/Kg CBW 122.3lb/55.6kg Kcals Calculated 1390-1668kcal (25-30kcla/kg) Protein: Using Current wt Protein Calculated 56g (1g/kg) Fluid: ml 1390-1668ml (1ml/kcal) Nutritional Problem 1. Problem Problem Altered nutrition related laboratory values related to Etiology DM aeb Signs/Symptoms: glucose 508 Intervention/Recommendation Comments 1. Continue with current diet order. Clarify "CCHO" as " [id number]." Avg PO intake is inadequate, meeting 83% lwoer end kcal needs. 2. Provide nutrition edu DM as able, pt was soundly asleep during visit. 3. Monitor glucose, adjust insulin, glucose 508. Expected Outcomes/Goals Expected Outcomes/Goals 1. PO intake continue to meet at least 75% of estimated nutritinoal needs.
[2017-05-25] MEDS: Fish Oil 1,000 MG SGL PO SCH (10:21)
[2017-05-25] MEDS: Ferrous Sulfate 325 MG TAB PO SCH (10:24)
[2017-05-25] MEDS: Insulin Detemir 100 units/mL 10mL Vial SUBQ SCH ×2 (10:45→21:20)
[2017-05-25] MEDS: Pantoprazole 40 mg EC Tab PO SCH (10:50)
--- NOTE | 2017-05-26 06:37 | Progress Notes ---
DATE: 05/25/2017 SUBJECTIVE: Chart reviewed and the patient interviewed. Also discussed the patient's condition with the staff and reviewed records and labs. The patient seems to be more aggressive and more agitated today and patient during my interview, left and tried to storm and the nurses' station, trying to grab some food that was in the nursing station. She also still has difficulty following any directions and she gets agitated easily. The patient also is unable to follow directions easily. Otherwise, the patient is compliant with taking her medications with no side effects of medications. During interview, the patient is disheveled and in irritable and angry mood. She also seems to be confused and unable to follow directions. ASSESSMENT: The patient is still psychotic and aggressive. TREATMENT PLAN: We will continue to monitor her behavior and her condition closely. Also, we will increase Abilify to 15 mg everyday and we will stop Remeron. Also, continue to work on behavioral modification. JOB# [id number]
[2017-05-26] MEDS: Pantoprazole 40 mg EC Tab PO SCH (08:22)
[2017-05-26] MEDS: Ferrous Sulfate 325 MG TAB PO SCH (08:22)
[2017-05-26] MEDS: Insulin Detemir 100 units/mL 10mL Vial SUBQ SCH (08:22)
[2017-05-26] MEDS: Fish Oil 1,000 MG SGL PO SCH (08:23)
[2017-05-26] MEDS: INSULIN ASPART SLIDING SCALE 100 UNITS/ML UNIT SUBQ SCH ×4 (08:34→21:15)
--- NOTE | 2017-05-26 09:06 | General Progress Note ---
Subjective - Review of Systems Events since last encounter: patient remains psychotic and aggressive denies pain Objective - Results Result Diagrams: 05/16/17 07:30 Recent Labs: Laboratory Last Values Sodium 135 mEq/L (136-145) L 05/16/17 07:30 Potassium 3.5 mEq/L (3.5-5.1) 05/16/17 07:30 Chloride 104 mEq/L (98-107) 05/16/17 07:30 Carbon Dioxide 27.8 mEq/L (21.0-31.0) 05/16/17 07:30 Anion Gap 6.7 (7.0-16.0) L 05/16/17 07:30 BUN 13 mg/dL (7-25) 05/16/17 07:30 Creatinine 0.8 mg/dL (0.6-1.2) 05/16/17 07:30 Est GFR ( Amer) > 60.0 ml/min (>90) 05/16/17 07:30 Est GFR (Non-Af Amer) > 60.0 ml/min 05/16/17 07:30 BUN/Creatinine Ratio 16.3 05/16/17 07:30 Glucose 90 mg/dL (70-105) 05/16/17 07:30 POC Glucose 192 MG/DL (70 - 105) H 05/26/17 06:57 Calcium 8.2 mg/dL (8.6-10.3) L 05/16/17 07:30 Total Bilirubin 0.3 mg/dL (0.3-1.0) 05/16/17 07:30 AST 94 U/L (13-39) H 05/16/17 07:30 ALT 55 U/L (7-52) H 05/16/17 07:30 Alkaline Phosphatase 73 U/L (34-104) 05/16/17 07:30 Total Protein 4.7 gm/dL (6.0-8.3) L 05/16/17 07:30 Albumin 2.5 gm/dL (3.7-5.3) L 05/16/17 07:30 Globulin 2.2 gm/dL 05/16/17 07:30 Albumin/Globulin Ratio 1.1 (1.0-1.8) 05/16/17 07:30 - Physical Exam Vitals and I&O: Vital Signs Temp 98.6 F 05/26/17 06:38 Pulse 79 05/26/17 08:19 Resp 18 05/26/17 06:38 BP 102/55 05/26/17 08:19 Pulse Ox 98 05/26/17 06:38 Intake & Output 05/25/17 05/26/17 05/26/17 18:59 06:59 18:59 Intake Total 1320 Balance 1320 Intake: Oral 1320 Other: # Voids 3 # Bowel Movements 1 Active Medications: Current Medications Acetaminophen (Tylenol) 650 mg PO Q4H PRN PRN Reason: Mild-Moderate Pain or T >101 Stop: 07/09/17 22:29 Acetaminophen (Tylenol Extra Strength) 500 mg PO Q4H PRN PRN Reason: Pain (Moderate) Stop: 07/09/17 22:30 Al Hydrox/Mg Hydrox/Simethicone (Maalox) 30 ml PO Q4HR PRN PRN Reason: GI DISTRESS Stop: 07/09/17 22:31 Aripiprazole (Abilify) 15 mg PO HS [facility] Stop: 07/24/17 20:59 Last Admin: 05/25/17 21:19 Dose: 15 mg Carvedilol (Coreg) 12.5 mg PO BID [facility] Stop: 07/10/17 08:59 Last Admin: 05/26/17 08:19 Dose: Not Given Duloxetine HCl (Cymbalta) 60 mg PO DAILY [facility] PRN Reason: Protocol Stop: 07/10/17 08:59 Last Admin: 05/26/17 08:21 Dose: 60 mg Ergocalciferol (Vitamin D) 50,000 iu PO QWED [facility] Stop: 07/09/17 22:14 Last Admin: 05/18/17 16:55 Dose: Not Given Ferrous Sulfate (Iron) 325 mg PO DAILY [facility] Stop: 07/10/17 08:59 Last Admin: 05/26/17 08:22 Dose: 325 mg Fish Oil ([place] 3) 1,000 mg PO DAILY [facility] Stop: 07/10/17 08:59 Last Admin: 05/26/17 08:23 Dose: 1,000 mg Gabapentin (Neurontin) 800 mg PO Q8HR [facility] Stop: 07/10/17 04:59 Last Admin: 05/26/17 05:11 Dose: Not Given Insulin Aspart (Novolog Insulin Sliding Scale) 0 units SUBQ ACHS [facility] PRN Reason: Protocol Stop: 07/10/17 16:29 Last Admin: 05/26/17 08:34 Dose: 2 units Insulin Detemir (Levemir Insulin) 15 units SUBQ BID@0800,2000 [facility]AUGHN PRN Reason: Protocol Stop: 07/14/17 20:59 Last Admin: 05/26/17 08:22 Dose: 15 units Lorazepam (Ativan) 1 mg PO Q4HR PRN; Protocol PRN Reason: Anxiety Stop: 07/17/17 10:33 Last Admin: 05/25/17 16:47 Dose: 1 mg Magnesium Hydroxide (Milk Of Magnesia) 30 ml PO HS PRN PRN Reason: Constipation Stop: 07/09/17 22:15 Pantoprazole Sodium (Protonix) 40 mg PO QDAC [facility] Stop: 07/10/17 07:29 Last Admin: 05/26/17 08:22 Dose: 40 mg Trazodone HCl (Desyrel) 100 mg PO HS [facility] PRN Reason: Protocol Stop: 07/10/17 20:59 Last Admin: 05/25/17 21:19 Dose: 100 mg General: No acute distress HEENT: Atraumatic, PERRLA Cardiovascular: Regular rate, Normal S1 Lungs: Clear to auscultation Abdomen: Bowel sounds Assessment/Plan - Problem List Patient Problems: All Active Problems Dehydration (Acute) E86.0 Diabetes (Acute) E11.9 Hypokalemia (Acute) E87.6 Hyponatremia (Acute) E87.1 h/o schizophrenia (Acute) history of psychotic disorder (Acute) history of severe depression (Acute) - Assessment Assessment: Dehydration (Acute) E86.0 Diabetes (Acute) E11.9 Hypokalemia (Acute) E87.6 Hyponatremia (Acute) E87.1 h/o schizophrenia (Acute) history of psychotic disorder (Acute) history of severe depression (Acute) - Plan Plan: as per psych as problems arise Nutritional Asmnt/Malnutr-PDOC - Dietary Evaluation Malnutrition Findings (Please click <Entered> for more info): Nutritional Asmnt/Malnutrition Start: 05/12/17 10: 51 Text: Status: Complete Freq: Document 05/12/17 10:51 GSUN (Rec: 05/12/17 11:17 GSUN [email or web address]) Nutritional Asmnt/Malnutrition Patient General Information Nutritional Screening Moderate Risk Screening Diagnosis Schizoaffective disorder bipolar type with psychotic features Pertinent Medical Hx/Surgical Hx DM, HTN, esophageal reflux disease, severe hypokalemia, dementia Subjective Information 61 year old female, transfered from [facility]. Pt was soundly asleep during visit, mortgage or loan underwriter visited twice attempted to wake pt, unsuccessful. Limited physical assessment, no severe muslce fat wasting noted. Avg 67% of meals since adm, meeting 83% of lower end kcal needs. Per [facility] staff, pt was requesting for snacks and ice cream. Few teeth missing. Current Diet Order/ Nutrition Support Low sodium, CCHO Pertinent Medications Vitamin D, Iron, [place] 3, Novolog, Levemir, MOM, Remeron , Protonix Pertinent Labs 05/11: glucose 508H Nutritional Hx/Data Height 1.68 m Height (Calculated Centimeters) 167.6 Current Weight (lbs) 55.474 kg Weight (Calculated Kilograms) 55.5 Weight (Calculated Grams) 35830.3 [place] Body Weight 130 Weight Status Approriate GI Symptoms Food Allergies No Skin Integrity/Comment: Carlos 20. Skin intact. Current %PO Fair (50-74%) Estimated Nutritional Goals BEE in Kcals: Using Current wt Calories/Kcals/Kg CBW 122.3lb/55.6kg Kcals Calculated 1390-1668kcal (25-30kcla/kg) Protein: Using Current wt Protein Calculated 56g (1g/kg) Fluid: ml 1390-1668ml (1ml/kcal) Nutritional Problem 1. Problem Problem Altered nutrition related laboratory values related to Etiology DM aeb Signs/Symptoms: glucose 508 Intervention/Recommendation Comments 1. Continue with current diet order. Clarify "CCHO" as " [id number]." Avg PO intake is inadequate, meeting 83% lwoer end kcal needs. 2. Provide nutrition edu DM as able, pt was soundly asleep during visit. 3. Monitor glucose, adjust insulin, glucose 508. Expected Outcomes/Goals Expected Outcomes/Goals 1. PO intake continue to meet at least 75% of estimated nutritinoal needs.
--- NOTE | 2017-05-26 09:06 | General Progress Note ---
Subjective - Review of Systems Events since last encounter: patient remains psychotic and aggressive denies pain Objective - Results Result Diagrams: 05/16/17 07:30 Recent Labs: Laboratory Last Values Sodium 135 mEq/L (136-145) L 05/16/17 07:30 Potassium 3.5 mEq/L (3.5-5.1) 05/16/17 07:30 Chloride 104 mEq/L (98-107) 05/16/17 07:30 Carbon Dioxide 27.8 mEq/L (21.0-31.0) 05/16/17 07:30 Anion Gap 6.7 (7.0-16.0) L 05/16/17 07:30 BUN 13 mg/dL (7-25) 05/16/17 07:30 Creatinine 0.8 mg/dL (0.6-1.2) 05/16/17 07:30 Est GFR ( Amer) > 60.0 ml/min (>90) 05/16/17 07:30 Est GFR (Non-Af Amer) > 60.0 ml/min 05/16/17 07:30 BUN/Creatinine Ratio 16.3 05/16/17 07:30 Glucose 90 mg/dL (70-105) 05/16/17 07:30 POC Glucose 192 MG/DL (70 - 105) H 05/26/17 06:57 Calcium 8.2 mg/dL (8.6-10.3) L 05/16/17 07:30 Total Bilirubin 0.3 mg/dL (0.3-1.0) 05/16/17 07:30 AST 94 U/L (13-39) H 05/16/17 07:30 ALT 55 U/L (7-52) H 05/16/17 07:30 Alkaline Phosphatase 73 U/L (34-104) 05/16/17 07:30 Total Protein 4.7 gm/dL (6.0-8.3) L 05/16/17 07:30 Albumin 2.5 gm/dL (3.7-5.3) L 05/16/17 07:30 Globulin 2.2 gm/dL 05/16/17 07:30 Albumin/Globulin Ratio 1.1 (1.0-1.8) 05/16/17 07:30 - Physical Exam Vitals and I&O: Vital Signs Temp 98.6 F 05/26/17 06:38 Pulse 79 05/26/17 08:19 Resp 18 05/26/17 06:38 BP 102/55 05/26/17 08:19 Pulse Ox 98 05/26/17 06:38 Intake & Output 05/25/17 05/26/17 05/26/17 18:59 06:59 18:59 Intake Total 1320 Balance 1320 Intake: Oral 1320 Other: # Voids 3 # Bowel Movements 1 Active Medications: Current Medications Acetaminophen (Tylenol) 650 mg PO Q4H PRN PRN Reason: Mild-Moderate Pain or T >101 Stop: 07/09/17 22:29 Acetaminophen (Tylenol Extra Strength) 500 mg PO Q4H PRN PRN Reason: Pain (Moderate) Stop: 07/09/17 22:30 Al Hydrox/Mg Hydrox/Simethicone (Maalox) 30 ml PO Q4HR PRN PRN Reason: GI DISTRESS Stop: 07/09/17 22:31 Aripiprazole (Abilify) 15 mg PO HS [facility] Stop: 07/24/17 20:59 Last Admin: 05/25/17 21:19 Dose: 15 mg Carvedilol (Coreg) 12.5 mg PO BID [facility] Stop: 07/10/17 08:59 Last Admin: 05/26/17 08:19 Dose: Not Given Duloxetine HCl (Cymbalta) 60 mg PO DAILY [facility] PRN Reason: Protocol Stop: 07/10/17 08:59 Last Admin: 05/26/17 08:21 Dose: 60 mg Ergocalciferol (Vitamin D) 50,000 iu PO QWED [facility] Stop: 07/09/17 22:14 Last Admin: 05/18/17 16:55 Dose: Not Given Ferrous Sulfate (Iron) 325 mg PO DAILY [facility] Stop: 07/10/17 08:59 Last Admin: 05/26/17 08:22 Dose: 325 mg Fish Oil ([place] 3) 1,000 mg PO DAILY [facility] Stop: 07/10/17 08:59 Last Admin: 05/26/17 08:23 Dose: 1,000 mg Gabapentin (Neurontin) 800 mg PO Q8HR [facility] Stop: 07/10/17 04:59 Last Admin: 05/26/17 05:11 Dose: Not Given Insulin Aspart (Novolog Insulin Sliding Scale) 0 units SUBQ ACHS [facility]N PRN Reason: Protocol Stop: 07/10/17 16:29 Last Admin: 05/26/17 08:34 Dose: 2 units Insulin Detemir (Levemir Insulin) 15 units SUBQ BID@0800,2000 [facility] PRN Reason: Protocol Stop: 07/14/17 20:59 Last Admin: 05/26/17 08:22 Dose: 15 units Lorazepam (Ativan) 1 mg PO Q4HR PRN; Protocol PRN Reason: Anxiety Stop: 07/17/17 10:33 Last Admin: 05/25/17 16:47 Dose: 1 mg Magnesium Hydroxide (Milk Of Magnesia) 30 ml PO HS PRN PRN Reason: Constipation Stop: 07/09/17 22:15 Pantoprazole Sodium (Protonix) 40 mg PO QDAC [facility] Stop: 07/10/17 07:29 Last Admin: 05/26/17 08:22 Dose: 40 mg Trazodone HCl (Desyrel) 100 mg PO HS [facility] PRN Reason: Protocol Stop: 07/10/17 20:59 Last Admin: 05/25/17 21:19 Dose: 100 mg General: No acute distress HEENT: Atraumatic, PERRLA Cardiovascular: Regular rate, Normal S1 Lungs: Clear to auscultation Abdomen: Bowel sounds Assessment/Plan - Problem List Patient Problems: All Active Problems Dehydration (Acute) E86.0 Diabetes (Acute) E11.9 Hypokalemia (Acute) E87.6 Hyponatremia (Acute) E87.1 h/o schizophrenia (Acute) history of psychotic disorder (Acute) history of severe depression (Acute) - Assessment Assessment: Dehydration (Acute) E86.0 Diabetes (Acute) E11.9 Hypokalemia (Acute) E87.6 Hyponatremia (Acute) E87.1 h/o schizophrenia (Acute) history of psychotic disorder (Acute) history of severe depression (Acute) - Plan Plan: as per psych as problems arise Nutritional Asmnt/Malnutr-PDOC - Dietary Evaluation Malnutrition Findings (Please click <Entered> for more info): Nutritional Asmnt/Malnutrition Start: 05/12/17 10: 51 Text: Status: Complete Freq: Document 05/12/17 10:51 GSUN (Rec: 05/12/17 11:17 GSUN [email or web address]) Nutritional Asmnt/Malnutrition Patient General Information Nutritional Screening Moderate Risk Screening Diagnosis Schizoaffective disorder bipolar type with psychotic features Pertinent Medical Hx/Surgical Hx DM, HTN, esophageal reflux disease, severe hypokalemia, dementia Subjective Information 61 year old female, transfered from [facility] [place]. Pt was soundly asleep during visit, telegraphic typewriter repairer visited twice attempted to wake pt, unsuccessful. Limited physical assessment, no severe muslce fat wasting noted. Avg 67% of meals since adm, meeting 83% of lower end kcal needs. Per [facility] staff, pt was requesting for snacks and ice cream. Few teeth missing. Current Diet Order/ Nutrition Support Low sodium, CCHO Pertinent Medications Vitamin D, Iron, [place] 3, Novolog, Levemir, MOM, Remeron , Protonix Pertinent Labs 05/11: glucose 508H Nutritional Hx/Data Height 1.68 m Height (Calculated Centimeters) 167.6 Current Weight (lbs) 55.474 kg Weight (Calculated Kilograms) 55.5 Weight (Calculated Grams) 97523.3 [place] Body Weight 130 Weight Status Approriate GI Symptoms Food Allergies No Skin Integrity/Comment: Carlos 20. Skin intact. Current %PO Fair (50-74%) Estimated Nutritional Goals BEE in Kcals: Using Current wt Calories/Kcals/Kg CBW 122.3lb/55.6kg Kcals Calculated 1390-1668kcal (25-30kcla/kg) Protein: Using Current wt Protein Calculated 56g (1g/kg) Fluid: ml 1390-1668ml (1ml/kcal) Nutritional Problem 1. Problem Problem Altered nutrition related laboratory values related to Etiology DM aeb Signs/Symptoms: glucose 508 Intervention/Recommendation Comments 1. Continue with current diet order. Clarify "CCHO" as " [id number]." Avg PO intake is inadequate, meeting 83% lwoer end kcal needs. 2. Provide nutrition edu DM as able, pt was soundly asleep during visit. 3. Monitor glucose, adjust insulin, glucose 508. Expected Outcomes/Goals Expected Outcomes/Goals 1. PO intake continue to meet at least 75% of estimated nutritinoal needs.
--- NOTE | 2017-05-26 09:06 | General Progress Note ---
Subjective - Review of Systems Events since last encounter: patient remains psychotic and aggressive denies pain Objective - Results Result Diagrams: 05/16/17 07:30 Recent Labs: Laboratory Last Values Sodium 135 mEq/L (136-145) L 05/16/17 07:30 Potassium 3.5 mEq/L (3.5-5.1) 05/16/17 07:30 Chloride 104 mEq/L (98-107) 05/16/17 07:30 Carbon Dioxide 27.8 mEq/L (21.0-31.0) 05/16/17 07:30 Anion Gap 6.7 (7.0-16.0) L 05/16/17 07:30 BUN 13 mg/dL (7-25) 05/16/17 07:30 Creatinine 0.8 mg/dL (0.6-1.2) 05/16/17 07:30 Est GFR ( Amer) > 60.0 ml/min (>90) 05/16/17 07:30 Est GFR (Non-Af Amer) > 60.0 ml/min 05/16/17 07:30 BUN/Creatinine Ratio 16.3 05/16/17 07:30 Glucose 90 mg/dL (70-105) 05/16/17 07:30 POC Glucose 192 MG/DL (70 - 105) H 05/26/17 06:57 Calcium 8.2 mg/dL (8.6-10.3) L 05/16/17 07:30 Total Bilirubin 0.3 mg/dL (0.3-1.0) 05/16/17 07:30 AST 94 U/L (13-39) H 05/16/17 07:30 ALT 55 U/L (7-52) H 05/16/17 07:30 Alkaline Phosphatase 73 U/L (34-104) 05/16/17 07:30 Total Protein 4.7 gm/dL (6.0-8.3) L 05/16/17 07:30 Albumin 2.5 gm/dL (3.7-5.3) L 05/16/17 07:30 Globulin 2.2 gm/dL 05/16/17 07:30 Albumin/Globulin Ratio 1.1 (1.0-1.8) 05/16/17 07:30 - Physical Exam Vitals and I&O: Vital Signs Temp 98.6 F 05/26/17 06:38 Pulse 79 05/26/17 08:19 Resp 18 05/26/17 06:38 BP 102/55 05/26/17 08:19 Pulse Ox 98 05/26/17 06:38 Intake & Output 05/25/17 05/26/17 05/26/17 18:59 06:59 18:59 Intake Total 1320 Balance 1320 Intake: Oral 1320 Other: # Voids 3 # Bowel Movements 1 Active Medications: Current Medications Acetaminophen (Tylenol) 650 mg PO Q4H PRN PRN Reason: Mild-Moderate Pain or T >101 Stop: 07/09/17 22:29 Acetaminophen (Tylenol Extra Strength) 500 mg PO Q4H PRN PRN Reason: Pain (Moderate) Stop: 07/09/17 22:30 Al Hydrox/Mg Hydrox/Simethicone (Maalox) 30 ml PO Q4HR PRN PRN Reason: GI DISTRESS Stop: 07/09/17 22:31 Aripiprazole (Abilify) 15 mg PO HS [facility] Stop: 07/24/17 20:59 Last Admin: 05/25/17 21:19 Dose: 15 mg Carvedilol (Coreg) 12.5 mg PO BID [facility] Stop: 07/10/17 08:59 Last Admin: 05/26/17 08:19 Dose: Not Given Duloxetine HCl (Cymbalta) 60 mg PO DAILY [facility] PRN Reason: Protocol Stop: 07/10/17 08:59 Last Admin: 05/26/17 08:21 Dose: 60 mg Ergocalciferol (Vitamin D) 50,000 iu PO QWED [facility] Stop: 07/09/17 22:14 Last Admin: 05/18/17 16:55 Dose: Not Given Ferrous Sulfate (Iron) 325 mg PO DAILY [facility] Stop: 07/10/17 08:59 Last Admin: 05/26/17 08:22 Dose: 325 mg Fish Oil ([place] 3) 1,000 mg PO DAILY [facility] Stop: 07/10/17 08:59 Last Admin: 05/26/17 08:23 Dose: 1,000 mg Gabapentin (Neurontin) 800 mg PO Q8HR [facility] Stop: 07/10/17 04:59 Last Admin: 05/26/17 05:11 Dose: Not Given Insulin Aspart (Novolog Insulin Sliding Scale) 0 units SUBQ ACHS [facility] PRN Reason: Protocol Stop: 07/10/17 16:29 Last Admin: 05/26/17 08:34 Dose: 2 units Insulin Detemir (Levemir Insulin) 15 units SUBQ BID@0800,2000 [facility] PRN Reason: Protocol Stop: 07/14/17 20:59 Last Admin: 05/26/17 08:22 Dose: 15 units Lorazepam (Ativan) 1 mg PO Q4HR PRN; Protocol PRN Reason: Anxiety Stop: 07/17/17 10:33 Last Admin: 05/25/17 16:47 Dose: 1 mg Magnesium Hydroxide (Milk Of Magnesia) 30 ml PO HS PRN PRN Reason: Constipation Stop: 07/09/17 22:15 Pantoprazole Sodium (Protonix) 40 mg PO QDAC [facility] Stop: 07/10/17 07:29 Last Admin: 05/26/17 08:22 Dose: 40 mg Trazodone HCl (Desyrel) 100 mg PO HS [facility] PRN Reason: Protocol Stop: 07/10/17 20:59 Last Admin: 05/25/17 21:19 Dose: 100 mg General: No acute distress HEENT: Atraumatic, PERRLA Cardiovascular: Regular rate, Normal S1 Lungs: Clear to auscultation Abdomen: Bowel sounds Assessment/Plan - Problem List Patient Problems: All Active Problems Dehydration (Acute) E86.0 Diabetes (Acute) E11.9 Hypokalemia (Acute) E87.6 Hyponatremia (Acute) E87.1 h/o schizophrenia (Acute) history of psychotic disorder (Acute) history of severe depression (Acute) - Assessment Assessment: Dehydration (Acute) E86.0 Diabetes (Acute) E11.9 Hypokalemia (Acute) E87.6 Hyponatremia (Acute) E87.1 h/o schizophrenia (Acute) history of psychotic disorder (Acute) history of severe depression (Acute) - Plan Plan: as per psych as problems arise Nutritional Asmnt/Malnutr-PDOC - Dietary Evaluation Malnutrition Findings (Please click <Entered> for more info): Nutritional Asmnt/Malnutrition Start: 05/12/17 10: 51 Text: Status: Complete Freq: Document 05/12/17 10:51 GSUN (Rec: 05/12/17 11:17 GSUN [email or web address]) Nutritional Asmnt/Malnutrition Patient General Information Nutritional Screening Moderate Risk Screening Diagnosis Schizoaffective disorder bipolar type with psychotic features Pertinent Medical Hx/Surgical Hx DM, HTN, esophageal reflux disease, severe hypokalemia, dementia Subjective Information 61 year old female, transfered from [facility]. Pt was soundly asleep during visit, rewriter visited twice attempted to wake pt, unsuccessful. Limited physical assessment, no severe muslce fat wasting noted. Avg 67% of meals since adm, meeting 83% of lower end kcal needs. Per [facility] staff, pt was requesting for snacks and ice cream. Few teeth missing. Current Diet Order/ Nutrition Support Low sodium, CCHO Pertinent Medications Vitamin D, Iron, [place] 3, Novolog, Levemir, MOM, Remeron , Protonix Pertinent Labs 05/11: glucose 508H Nutritional Hx/Data Height 1.68 m Height (Calculated Centimeters) 167.6 Current Weight (lbs) 55.474 kg Weight (Calculated Kilograms) 55.5 Weight (Calculated Grams) 84757.3 [place] Body Weight 130 Weight Status Approriate GI Symptoms Food Allergies No Skin Integrity/Comment: Carlos 20. Skin intact. Current %PO Fair (50-74%) Estimated Nutritional Goals BEE in Kcals: Using Current wt Calories/Kcals/Kg CBW 122.3lb/55.6kg Kcals Calculated 1390-1668kcal (25-30kcla/kg) Protein: Using Current wt Protein Calculated 56g (1g/kg) Fluid: ml 1390-1668ml (1ml/kcal) Nutritional Problem 1. Problem Problem Altered nutrition related laboratory values related to Etiology DM aeb Signs/Symptoms: glucose 508 Intervention/Recommendation Comments 1. Continue with current diet order. Clarify "CCHO" as " [id number]." Avg PO intake is inadequate, meeting 83% lwoer end kcal needs. 2. Provide nutrition edu DM as able, pt was soundly asleep during visit. 3. Monitor glucose, adjust insulin, glucose 508. Expected Outcomes/Goals Expected Outcomes/Goals 1. PO intake continue to meet at least 75% of estimated nutritinoal needs.
--- NOTE | 2017-05-27 02:38 | Progress Notes ---
DATE: 05/26/2017 SUBJECTIVE: Chart reviewed and the patient interviewed. Also discussed the patient's condition with the staff and reviewed records and labs. The patient continues to be anxious and continues to be in irritable and angry mood. The patient also is still resisting care and she is still fighting with others and she is still trying to grab the food. Also, her mood is still irritable and needs lots of redirections. ASSESSMENT: The patient is still angry and still agitated. TREATMENT PLAN: Continue to monitor her behavior and her condition closely. Also, continue to work on his poor impulse control and her irritability and continue to follow up. JOB# [id number]
[2017-05-27] MEDS: INSULIN ASPART SLIDING SCALE 100 UNITS/ML UNIT SUBQ SCH ×4 (06:37→21:57)
[2017-05-27] MEDS: Pantoprazole 40 mg EC Tab PO SCH (06:37)
[2017-05-27] MEDS: Fish Oil 1,000 MG SGL PO SCH (08:24)
[2017-05-27] MEDS: Ferrous Sulfate 325 MG TAB PO SCH (08:24)
[2017-05-27] MEDS: Insulin Detemir 100 units/mL 10mL Vial SUBQ SCH ×2 (08:42→19:16)
--- NOTE | 2017-05-27 11:28 | Internal Medicine Prog Note ---
Internal Medicine Subjective - Subjective Service Date: 05/27/17 Patient seen and examined:: with staff Patient is:: awake Per staff patient has:: no adverse event, tolerating meds Internal Medicine Objective - Results Result Diagrams: 05/16/17 07:30 Recent Labs: Laboratory Last Values Sodium 135 mEq/L (136-145) L 05/16/17 07:30 Potassium 3.5 mEq/L (3.5-5.1) 05/16/17 07:30 Chloride 104 mEq/L (98-107) 05/16/17 07:30 Carbon Dioxide 27.8 mEq/L (21.0-31.0) 05/16/17 07:30 Anion Gap 6.7 (7.0-16.0) L 05/16/17 07:30 BUN 13 mg/dL (7-25) 05/16/17 07:30 Creatinine 0.8 mg/dL (0.6-1.2) 05/16/17 07:30 Est GFR ( Amer) > 60.0 ml/min (>90) 05/16/17 07:30 Est GFR (Non-Af Amer) > 60.0 ml/min 05/16/17 07:30 BUN/Creatinine Ratio 16.3 05/16/17 07:30 Glucose 461 mg/dL (40-70) H* 05/26/17 12:20 POC Glucose 221 MG/DL (70 - 105) H 05/27/17 06:32 Calcium 8.2 mg/dL (8.6-10.3) L 05/16/17 07:30 Total Bilirubin 0.3 mg/dL (0.3-1.0) 05/16/17 07:30 AST 94 U/L (13-39) H 05/16/17 07:30 ALT 55 U/L (7-52) H 05/16/17 07:30 Alkaline Phosphatase 73 U/L (34-104) 05/16/17 07:30 Total Protein 4.7 gm/dL (6.0-8.3) L 05/16/17 07:30 Albumin 2.5 gm/dL (3.7-5.3) L 05/16/17 07:30 Globulin 2.2 gm/dL 05/16/17 07:30 Albumin/Globulin Ratio 1.1 (1.0-1.8) 05/16/17 07:30 - Physical Exam Vitals and I&O: Vital Signs Temp 97.3 F 05/27/17 00:48 Pulse 73 05/27/17 00:48 Resp 20 05/27/17 00:48 BP 90/61 05/27/17 00:48 Pulse Ox 98 05/27/17 00:48 Intake & Output 05/26/17 05/27/17 05/27/17 18:59 06:59 18:59 Intake Total 1200 Balance 1200 Intake: Oral 1200 Other: # Bowel Movements 1 Active Medications: Current Medications Acetaminophen (Tylenol) 650 mg PO Q4H PRN PRN Reason: Mild-Moderate Pain or T >101 Stop: 07/09/17 22:29 Acetaminophen (Tylenol Extra Strength) 500 mg PO Q4H PRN PRN Reason: Pain (Moderate) Stop: 07/09/17 22:30 Al Hydrox/Mg Hydrox/Simethicone (Maalox) 30 ml PO Q4HR PRN PRN Reason: GI DISTRESS Stop: 07/09/17 22:31 Aripiprazole (Abilify) 20 mg PO HS [facility] Stop: 07/26/17 20:59 Carvedilol (Coreg) 12.5 mg PO BID [facility] Stop: 07/10/17 08:59 Last Admin: 05/26/17 16:56 Dose: Not Given Duloxetine HCl (Cymbalta) 60 mg PO DAILY [facility] PRN Reason: Protocol Stop: 07/10/17 08:59 Last Admin: 05/27/17 08:24 Dose: 60 mg Ergocalciferol (Vitamin D) 50,000 iu PO QWED [facility] Stop: 07/09/17 22:14 Last Admin: 05/18/17 16:55 Dose: Not Given Ferrous Sulfate (Iron) 325 mg PO DAILY [facility] Stop: 07/10/17 08:59 Last Admin: 05/27/17 08:24 Dose: 325 mg Fish Oil ([place] 3) 1,000 mg PO DAILY [facility] Stop: 07/10/17 08:59 Last Admin: 05/27/17 08:24 Dose: 1,000 mg Gabapentin (Neurontin) 800 mg PO Q8HR [facility] Stop: 07/10/17 04:59 Last Admin: 05/27/17 06:36 Dose: Not Given Insulin Aspart (Novolog Insulin Sliding Scale) 0 units SUBQ ACHS [facility]N PRN Reason: Protocol Stop: 07/10/17 16:29 Last Admin: 05/27/17 06:37 Dose: 4 units Insulin Detemir (Levemir Insulin) 20 units SUBQ BID [facility]N PRN Reason: Protocol Stop: 07/26/17 08:59 Last Admin: 05/27/17 08:42 Dose: 20 unit Lorazepam (Ativan) 1 mg PO Q4HR PRN; Protocol PRN Reason: Anxiety Stop: 07/17/17 10:33 Last Admin: 05/26/17 17:06 Dose: 1 mg Magnesium Hydroxide (Milk Of Magnesia) 30 ml PO HS PRN PRN Reason: Constipation Stop: 07/09/17 22:15 Pantoprazole Sodium (Protonix) 40 mg PO QDAC [facility] Stop: 07/10/17 07:29 Last Admin: 05/27/17 06:37 Dose: 40 mg Trazodone HCl (Desyrel) 100 mg PO HS [facility] PRN Reason: Protocol Stop: 07/10/17 20:59 Last Admin: 05/26/17 21:10 Dose: 100 mg General: alert HEENT: NC/AT, PERRLA Lungs: CTAB Cardiovascular: RRR, Normal S1, Normal S2 Abdomen: soft, non-tender, non-distended, positive bowel sound Neurological: no change Internal Medicine Assmt/Plan - Assessment Assessment: Diabetes (Acute) E11.9 Hypokalemia (Acute) E87.6 Hyponatremia (Acute) E87.1 h/o schizophrenia (Acute) history of psychotic disorder (Acute) history of severe depression (Acute) - Plan Plan: monitor electrolytes continue current plan of care safety precautions Nutritional Asmnt/Malnutr-PDOC - Dietary Evaluation Malnutrition Findings (Please click <Entered> for more info): Nutritional Asmnt/Malnutrition Start: 05/12/17 10: 51 Text: Status: Complete Freq: Document 05/12/17 10:51 GSUN (Rec: 05/12/17 11:17 [email or web address]) Nutritional Asmnt/Malnutrition Patient General Information Nutritional Screening Moderate Risk Diagnosis Schizoaffective disorder bipolar type with psychotic features Pertinent Medical Hx/Surgical Hx DM, HTN, esophageal reflux disease, severe hypokalemia, dementia Subjective Information 61 year old female, transfered from [facility]. Pt was soundly asleep during visit, sports writer visited twice attempted to wake pt, unsuccessful. Limited physical assessment, no severe muslce fat wasting noted. Avg 67% of meals since adm, meeting 83% of lower end kcal needs. Per [facility] staff, pt was requesting for snacks and ice cream. Few teeth missing. Current Diet Order/ Nutrition Support Low sodium, CCHO Pertinent Medications Vitamin D, Iron, [place] 3, Novolog, Levemir, MOM, Remeron , Protonix Pertinent Labs 05/11: glucose 508H Nutritional Hx/Data Height 5 ft 6 in Height (Calculated Centimeters) 167.6 Current Weight (lbs) 122 lb 4.8 oz Weight (Calculated Kilograms) 55.5 Weight (Calculated Grams) 15220.3 [place] Body Weight 130 Weight Status Approriate GI Symptoms Food Allergies No Skin Integrity/Comment: Carlos 20. Skin intact. Current %PO Fair (50-74%) Estimated Nutritional Goals BEE in Kcals: Using Current wt Calories/Kcals/Kg CBW 122.3lb/55.6kg Kcals Calculated 1390-1668kcal (25-30kcla/kg) Protein: Using Current wt Protein Calculated 56g (1g/kg) Fluid: ml 1390-1668ml (1ml/kcal) Nutritional Problem 1. Problem Problem Altered nutrition related laboratory values related to Etiology DM aeb Signs/Symptoms: glucose 508 Intervention/Recommendation Comments 1. Continue with current diet order. Clarify "CCHO" as " [id number]." Avg PO intake is inadequate, meeting 83% lwoer end kcal needs. 2. Provide nutrition edu DM as able, pt was soundly asleep during visit. 3. Monitor glucose, adjust insulin, glucose 508. Expected Outcomes/Goals Expected Outcomes/Goals 1. PO intake continue to meet at least 75% of estimated nutritinoal needs.
--- NOTE | 2017-05-27 11:28 | Internal Medicine Prog Note ---
Internal Medicine Subjective - Subjective Service Date: 05/27/17 Patient seen and examined:: with staff Patient is:: awake Per staff patient has:: no adverse event, tolerating meds Internal Medicine Objective - Results Result Diagrams: 05/16/17 07:30 Recent Labs: Laboratory Last Values Sodium 135 mEq/L (136-145) L 05/16/17 07:30 Potassium 3.5 mEq/L (3.5-5.1) 05/16/17 07:30 Chloride 104 mEq/L (98-107) 05/16/17 07:30 Carbon Dioxide 27.8 mEq/L (21.0-31.0) 05/16/17 07:30 Anion Gap 6.7 (7.0-16.0) L 05/16/17 07:30 BUN 13 mg/dL (7-25) 05/16/17 07:30 Creatinine 0.8 mg/dL (0.6-1.2) 05/16/17 07:30 Est GFR ( Amer) > 60.0 ml/min (>90) 05/16/17 07:30 Est GFR (Non-Af Amer) > 60.0 ml/min 05/16/17 07:30 BUN/Creatinine Ratio 16.3 05/16/17 07:30 Glucose 461 mg/dL (40-70) H* 05/26/17 12:20 POC Glucose 221 MG/DL (70 - 105) H 05/27/17 06:32 Calcium 8.2 mg/dL (8.6-10.3) L 05/16/17 07:30 Total Bilirubin 0.3 mg/dL (0.3-1.0) 05/16/17 07:30 AST 94 U/L (13-39) H 05/16/17 07:30 ALT 55 U/L (7-52) H 05/16/17 07:30 Alkaline Phosphatase 73 U/L (34-104) 05/16/17 07:30 Total Protein 4.7 gm/dL (6.0-8.3) L 05/16/17 07:30 Albumin 2.5 gm/dL (3.7-5.3) L 05/16/17 07:30 Globulin 2.2 gm/dL 05/16/17 07:30 Albumin/Globulin Ratio 1.1 (1.0-1.8) 05/16/17 07:30 - Physical Exam Vitals and I&O: Vital Signs Temp 97.3 F 05/27/17 00:48 Pulse 73 05/27/17 00:48 Resp 20 05/27/17 00:48 BP 90/61 05/27/17 00:48 Pulse Ox 98 05/27/17 00:48 Intake & Output 05/26/17 05/27/17 05/27/17 18:59 06:59 18:59 Intake Total 1200 Balance 1200 Intake: Oral 1200 Other: # Bowel Movements 1 Active Medications: Current Medications Acetaminophen (Tylenol) 650 mg PO Q4H PRN PRN Reason: Mild-Moderate Pain or T >101 Stop: 07/09/17 22:29 Acetaminophen (Tylenol Extra Strength) 500 mg PO Q4H PRN PRN Reason: Pain (Moderate) Stop: 07/09/17 22:30 Al Hydrox/Mg Hydrox/Simethicone (Maalox) 30 ml PO Q4HR PRN PRN Reason: GI DISTRESS Stop: 07/09/17 22:31 Aripiprazole (Abilify) 20 mg PO HS [facility] Stop: 07/26/17 20:59 Carvedilol (Coreg) 12.5 mg PO BID [facility] Stop: 07/10/17 08:59 Last Admin: 05/26/17 16:56 Dose: Not Given Duloxetine HCl (Cymbalta) 60 mg PO DAILY [facility]N PRN Reason: Protocol Stop: 07/10/17 08:59 Last Admin: 05/27/17 08:24 Dose: 60 mg Ergocalciferol (Vitamin D) 50,000 iu PO QWED [facility] Stop: 07/09/17 22:14 Last Admin: 05/18/17 16:55 Dose: Not Given Ferrous Sulfate (Iron) 325 mg PO DAILY [facility] Stop: 07/10/17 08:59 Last Admin: 05/27/17 08:24 Dose: 325 mg Fish Oil (Florien 3) 1,000 mg PO DAILY [facility] Stop: 07/10/17 08:59 Last Admin: 05/27/17 08:24 Dose: 1,000 mg Gabapentin (Neurontin) 800 mg PO Q8HR [facility] Stop: 07/10/17 04:59 Last Admin: 05/27/17 06:36 Dose: Not Given Insulin Aspart (Novolog Insulin Sliding Scale) 0 units SUBQ ACHS [facility]N PRN Reason: Protocol Stop: 07/10/17 16:29 Last Admin: 05/27/17 06:37 Dose: 4 units Insulin Detemir (Levemir Insulin) 20 units SUBQ BID [facility] PRN Reason: Protocol Stop: 07/26/17 08:59 Last Admin: 05/27/17 08:42 Dose: 20 unit Lorazepam (Ativan) 1 mg PO Q4HR PRN; Protocol PRN Reason: Anxiety Stop: 07/17/17 10:33 Last Admin: 05/26/17 17:06 Dose: 1 mg Magnesium Hydroxide (Milk Of Magnesia) 30 ml PO HS PRN PRN Reason: Constipation Stop: 07/09/17 22:15 Pantoprazole Sodium (Protonix) 40 mg PO QDAC [facility] Stop: 07/10/17 07:29 Last Admin: 05/27/17 06:37 Dose: 40 mg Trazodone HCl (Desyrel) 100 mg PO HS [facility] PRN Reason: Protocol Stop: 07/10/17 20:59 Last Admin: 05/26/17 21:10 Dose: 100 mg General: alert HEENT: NC/AT, PERRLA Lungs: CTAB Cardiovascular: RRR, Normal S1, Normal S2 Abdomen: soft, non-tender, non-distended, positive bowel sound Neurological: no change Internal Medicine Assmt/Plan - Assessment Assessment: Diabetes (Acute) E11.9 Hypokalemia (Acute) E87.6 Hyponatremia (Acute) E87.1 h/o schizophrenia (Acute) history of psychotic disorder (Acute) history of severe depression (Acute) - Plan Plan: monitor electrolytes continue current plan of care safety precautions Nutritional Asmnt/Malnutr-PDOC - Dietary Evaluation Malnutrition Findings (Please click <Entered> for more info): Nutritional Asmnt/Malnutrition Start: 05/12/17 10: 51 Text: Status: Complete Freq: Document 05/12/17 10:51 GSUN (Rec: 05/12/17 11:17 [email or web address]) Nutritional Asmnt/Malnutrition Patient General Information Nutritional Screening Moderate Risk Diagnosis Schizoaffective disorder bipolar type with psychotic features Pertinent Medical Hx/Surgical Hx DM, HTN, esophageal reflux disease, severe hypokalemia, dementia Subjective Information 61 year old female, transfered from [facility]. Pt was soundly asleep during visit, job specification writer visited twice attempted to wake pt, unsuccessful. Limited physical assessment, no severe muslce fat wasting noted. Avg 67% of meals since adm, meeting 83% of lower end kcal needs. Per [facility] staff, pt was requesting for snacks and ice cream. Few teeth missing. Current Diet Order/ Nutrition Support Low sodium, CCHO Pertinent Medications Vitamin D, Iron, Florien 3, Novolog, Levemir, MOM, Remeron , Protonix Pertinent Labs 05/11: glucose 508H Nutritional Hx/Data Height 5 ft 6 in Height (Calculated Centimeters) 167.6 Current Weight (lbs) 122 lb 4.8 oz Weight (Calculated Kilograms) 55.5 Weight (Calculated Grams) 27391.3 [place] Body Weight 130 Weight Status Approriate GI Symptoms Food Allergies No Skin Integrity/Comment: Carlos 20. Skin intact. Current %PO Fair (50-74%) Estimated Nutritional Goals BEE in Kcals: Using Current wt Calories/Kcals/Kg CBW 122.3lb/55.6kg Kcals Calculated 1390-1668kcal (25-30kcla/kg) Protein: Using Current wt Protein Calculated 56g (1g/kg) Fluid: ml 1390-1668ml (1ml/kcal) Nutritional Problem 1. Problem Problem Altered nutrition related laboratory values related to Etiology DM aeb Signs/Symptoms: glucose 508 Intervention/Recommendation Comments 1. Continue with current diet order. Clarify "CCHO" as " [id number]." Avg PO intake is inadequate, meeting 83% lwoer end kcal needs. 2. Provide nutrition edu DM as able, pt was soundly asleep during visit. 3. Monitor glucose, adjust insulin, glucose 508. Expected Outcomes/Goals Expected Outcomes/Goals 1. PO intake continue to meet at least 75% of estimated nutritinoal needs.
--- NOTE | 2017-05-27 11:28 | Internal Medicine Prog Note ---
Internal Medicine Subjective - Subjective Service Date: 05/27/17 Patient seen and examined:: with staff Patient is:: awake Per staff patient has:: no adverse event, tolerating meds Internal Medicine Objective - Results Result Diagrams: 05/16/17 07:30 Recent Labs: Laboratory Last Values Sodium 135 mEq/L (136-145) L 05/16/17 07:30 Potassium 3.5 mEq/L (3.5-5.1) 05/16/17 07:30 Chloride 104 mEq/L (98-107) 05/16/17 07:30 Carbon Dioxide 27.8 mEq/L (21.0-31.0) 05/16/17 07:30 Anion Gap 6.7 (7.0-16.0) L 05/16/17 07:30 BUN 13 mg/dL (7-25) 05/16/17 07:30 Creatinine 0.8 mg/dL (0.6-1.2) 05/16/17 07:30 Est GFR ( Amer) > 60.0 ml/min (>90) 05/16/17 07:30 Est GFR (Non-Af Amer) > 60.0 ml/min 05/16/17 07:30 BUN/Creatinine Ratio 16.3 05/16/17 07:30 Glucose 461 mg/dL (40-70) H* 05/26/17 12:20 POC Glucose 221 MG/DL (70 - 105) H 05/27/17 06:32 Calcium 8.2 mg/dL (8.6-10.3) L 05/16/17 07:30 Total Bilirubin 0.3 mg/dL (0.3-1.0) 05/16/17 07:30 AST 94 U/L (13-39) H 05/16/17 07:30 ALT 55 U/L (7-52) H 05/16/17 07:30 Alkaline Phosphatase 73 U/L (34-104) 05/16/17 07:30 Total Protein 4.7 gm/dL (6.0-8.3) L 05/16/17 07:30 Albumin 2.5 gm/dL (3.7-5.3) L 05/16/17 07:30 Globulin 2.2 gm/dL 05/16/17 07:30 Albumin/Globulin Ratio 1.1 (1.0-1.8) 05/16/17 07:30 - Physical Exam Vitals and I&O: Vital Signs Temp 97.3 F 05/27/17 00:48 Pulse 73 05/27/17 00:48 Resp 20 05/27/17 00:48 BP 90/61 05/27/17 00:48 Pulse Ox 98 05/27/17 00:48 Intake & Output 05/26/17 05/27/17 05/27/17 18:59 06:59 18:59 Intake Total 1200 Balance 1200 Intake: Oral 1200 Other: # Bowel Movements 1 Active Medications: Current Medications Acetaminophen (Tylenol) 650 mg PO Q4H PRN PRN Reason: Mild-Moderate Pain or T >101 Stop: 07/09/17 22:29 Acetaminophen (Tylenol Extra Strength) 500 mg PO Q4H PRN PRN Reason: Pain (Moderate) Stop: 07/09/17 22:30 Al Hydrox/Mg Hydrox/Simethicone (Maalox) 30 ml PO Q4HR PRN PRN Reason: GI DISTRESS Stop: 07/09/17 22:31 Aripiprazole (Abilify) 20 mg PO HS [facility] Stop: 07/26/17 20:59 Carvedilol (Coreg) 12.5 mg PO BID [facility] Stop: 07/10/17 08:59 Last Admin: 05/26/17 16:56 Dose: Not Given Duloxetine HCl (Cymbalta) 60 mg PO DAILY [facility] PRN Reason: Protocol Stop: 07/10/17 08:59 Last Admin: 05/27/17 08:24 Dose: 60 mg Ergocalciferol (Vitamin D) 50,000 iu PO QWED [facility] Stop: 07/09/17 22:14 Last Admin: 05/18/17 16:55 Dose: Not Given Ferrous Sulfate (Iron) 325 mg PO DAILY [facility] Stop: 07/10/17 08:59 Last Admin: 05/27/17 08:24 Dose: 325 mg Fish Oil (Riesel 3) 1,000 mg PO DAILY [facility] Stop: 07/10/17 08:59 Last Admin: 05/27/17 08:24 Dose: 1,000 mg Gabapentin (Neurontin) 800 mg PO Q8HR [facility] Stop: 07/10/17 04:59 Last Admin: 05/27/17 06:36 Dose: Not Given Insulin Aspart (Novolog Insulin Sliding Scale) 0 units SUBQ ACHS [facility] PRN Reason: Protocol Stop: 07/10/17 16:29 Last Admin: 05/27/17 06:37 Dose: 4 units Insulin Detemir (Levemir Insulin) 20 units SUBQ BID [facility] PRN Reason: Protocol Stop: 07/26/17 08:59 Last Admin: 05/27/17 08:42 Dose: 20 unit Lorazepam (Ativan) 1 mg PO Q4HR PRN; Protocol PRN Reason: Anxiety Stop: 07/17/17 10:33 Last Admin: 05/26/17 17:06 Dose: 1 mg Magnesium Hydroxide (Milk Of Magnesia) 30 ml PO HS PRN PRN Reason: Constipation Stop: 07/09/17 22:15 Pantoprazole Sodium (Protonix) 40 mg PO QDAC [facility] Stop: 07/10/17 07:29 Last Admin: 05/27/17 06:37 Dose: 40 mg Trazodone HCl (Desyrel) 100 mg PO HS [facility] PRN Reason: Protocol Stop: 07/10/17 20:59 Last Admin: 05/26/17 21:10 Dose: 100 mg General: alert HEENT: NC/AT, PERRLA Lungs: CTAB Cardiovascular: RRR, Normal S1, Normal S2 Abdomen: soft, non-tender, non-distended, positive bowel sound Neurological: no change Internal Medicine Assmt/Plan - Assessment Assessment: Diabetes (Acute) E11.9 Hypokalemia (Acute) E87.6 Hyponatremia (Acute) E87.1 h/o schizophrenia (Acute) history of psychotic disorder (Acute) history of severe depression (Acute) - Plan Plan: monitor electrolytes continue current plan of care safety precautions Nutritional Asmnt/Malnutr-PDOC - Dietary Evaluation Malnutrition Findings (Please click <Entered> for more info): Nutritional Asmnt/Malnutrition Start: 05/12/17 10: 51 Text: Status: Complete Freq: Document 05/12/17 10:51 GSUN (Rec: 05/12/17 11:17 [email or web address]) Nutritional Asmnt/Malnutrition Patient General Information Nutritional Screening Moderate Risk Diagnosis Schizoaffective disorder bipolar type with psychotic features Pertinent Medical Hx/Surgical Hx DM, HTN, esophageal reflux disease, severe hypokalemia, dementia Subjective Information 61 year old female, transfered from [facility]. Pt was soundly asleep during visit, marketing copywriter visited twice attempted to wake pt, unsuccessful. Limited physical assessment, no severe muslce fat wasting noted. Avg 67% of meals since adm, meeting 83% of lower end kcal needs. Per [facility] staff, pt was requesting for snacks and ice cream. Few teeth missing. Current Diet Order/ Nutrition Support Low sodium, CCHO Pertinent Medications Vitamin D, Iron, Riesel 3, Novolog, Levemir, MOM, Remeron , Protonix Pertinent Labs 05/11: glucose 508H Nutritional Hx/Data Height 5 ft 6 in Height (Calculated Centimeters) 167.6 Current Weight (lbs) 122 lb 4.8 oz Weight (Calculated Kilograms) 55.5 Weight (Calculated Grams) 01215.3 [place] Body Weight 130 Weight Status Approriate GI Symptoms Food Allergies No Skin Integrity/Comment: Carlos 20. Skin intact. Current %PO Fair (50-74%) Estimated Nutritional Goals BEE in Kcals: Using Current wt Calories/Kcals/Kg CBW 122.3lb/55.6kg Kcals Calculated 1390-1668kcal (25-30kcla/kg) Protein: Using Current wt Protein Calculated 56g (1g/kg) Fluid: ml 1390-1668ml (1ml/kcal) Nutritional Problem 1. Problem Problem Altered nutrition related laboratory values related to Etiology DM aeb Signs/Symptoms: glucose 508 Intervention/Recommendation Comments 1. Continue with current diet order. Clarify "CCHO" as " [id number]." Avg PO intake is inadequate, meeting 83% lwoer end kcal needs. 2. Provide nutrition edu DM as able, pt was soundly asleep during visit. 3. Monitor glucose, adjust insulin, glucose 508. Expected Outcomes/Goals Expected Outcomes/Goals 1. PO intake continue to meet at least 75% of estimated nutritinoal needs.
[2017-05-28] MEDS: INSULIN ASPART SLIDING SCALE 100 UNITS/ML UNIT SUBQ SCH ×4 (06:30→20:21)
[2017-05-28] MEDS: Pantoprazole 40 mg EC Tab PO SCH (06:36)
[2017-05-28] MEDS: Ferrous Sulfate 325 MG TAB PO SCH (10:03)
[2017-05-28] MEDS: Fish Oil 1,000 MG SGL PO SCH (10:03)
[2017-05-28] MEDS: Insulin Detemir 100 units/mL 10mL Vial SUBQ SCH ×2 (10:05→17:05)
--- NOTE | 2017-05-29 03:26 | Progress Notes ---
DATE: 05/28/2017 SUBJECTIVE: The patient was seen in her room, lying in the bed. The patient appears to be comfortable in no acute distress. The patient denies any depression, denies any hallucination. Denies any suicidal or homicidal ideation. Otherwise, the patient appears to be comfortable in no acute distress. OBJECTIVE: VITAL SIGNS: Temperature is 97.4, heart rate of 73, blood pressure is 100/60, respirations of 18, 96% on room air. HEENT: Head is atraumatic and normocephalic. Eyes: Bilateral conjunctivae are clear. Bilateral pupils are equally round and reactive. NECK: Supple. No JVD. CARDIOVASCULAR: S1 and S2 without murmur. PULMONARY: Clear to auscultation. GASTROINTESTINAL: Soft and nontender without guarding. Positive bowel sounds. MUSCULOSKELETAL: No clubbing, no cyanosis noted. ASSESSMENT: 1. Schizoaffective disorder. 2. Dementia. 3. Hypertension. 4. Diabetes mellitus. 5. Gastroesophageal reflux disease. 6. Osteoarthritis. PLAN: We will keep the patient in Inpatient Psychiatric Unit. We will follow up with a psychiatrist to monitor the patient's behavior. Treatment plans were discussed with the patient's nurse. Treatment plans were discussed with Dr. Stroud. JOB# [id number]
[2017-05-29] MEDS: Pantoprazole 40 mg EC Tab PO SCH (06:32)
[2017-05-29] MEDS: INSULIN ASPART SLIDING SCALE 100 UNITS/ML UNIT SUBQ SCH ×4 (06:36→20:47)
--- NOTE | 2017-05-29 07:18 | General Progress Note ---
Subjective - Review of Systems Events since last encounter: patient awake alert in no distress Objective - Results Result Diagrams: 05/16/17 07:30 Recent Labs: Laboratory Last Values Sodium 135 mEq/L (136-145) L 05/16/17 07:30 Potassium 3.5 mEq/L (3.5-5.1) 05/16/17 07:30 Chloride 104 mEq/L (98-107) 05/16/17 07:30 Carbon Dioxide 27.8 mEq/L (21.0-31.0) 05/16/17 07:30 Anion Gap 6.7 (7.0-16.0) L 05/16/17 07:30 BUN 13 mg/dL (7-25) 05/16/17 07:30 Creatinine 0.8 mg/dL (0.6-1.2) 05/16/17 07:30 Est GFR ( Amer) > 60.0 ml/min (>90) 05/16/17 07:30 Est GFR (Non-Af Amer) > 60.0 ml/min 05/16/17 07:30 BUN/Creatinine Ratio 16.3 05/16/17 07:30 Glucose 461 mg/dL (40-70) H* 05/26/17 12:20 POC Glucose 95 MG/DL (70 - 105) 05/29/17 06:35 Calcium 8.2 mg/dL (8.6-10.3) L 05/16/17 07:30 Total Bilirubin 0.3 mg/dL (0.3-1.0) 05/16/17 07:30 AST 94 U/L (13-39) H 05/16/17 07:30 ALT 55 U/L (7-52) H 05/16/17 07:30 Alkaline Phosphatase 73 U/L (34-104) 05/16/17 07:30 Total Protein 4.7 gm/dL (6.0-8.3) L 05/16/17 07:30 Albumin 2.5 gm/dL (3.7-5.3) L 05/16/17 07:30 Globulin 2.2 gm/dL 05/16/17 07:30 Albumin/Globulin Ratio 1.1 (1.0-1.8) 05/16/17 07:30 - Physical Exam Vitals and I&O: Vital Signs Temp 98.0 F 05/28/17 20:00 Pulse 74 05/28/17 20:00 Resp 20 05/28/17 20:00 BP 106/60 05/28/17 20:00 Pulse Ox 98 05/28/17 20:00 Intake & Output 05/28/17 05/29/17 05/29/17 19:59 06:59 18:59 Intake Total Balance Intake: Oral Other: # Voids # Bowel Movements Active Medications: Current Medications Acetaminophen (Tylenol) 650 mg PO Q4H PRN PRN Reason: Mild-Moderate Pain or T >101 Stop: 07/09/17 22:29 Acetaminophen (Tylenol Extra Strength) 500 mg PO Q4H PRN PRN Reason: Pain (Moderate) Stop: 07/09/17 22:30 Al Hydrox/Mg Hydrox/Simethicone (Maalox) 30 ml PO Q4HR PRN PRN Reason: GI DISTRESS Stop: 07/09/17 22:31 Aripiprazole (Abilify) 20 mg PO HS [facility] Stop: 07/26/17 20:59 Last Admin: 05/28/17 20:20 Dose: Not Given Carvedilol (Coreg) 12.5 mg PO BID [facility] Stop: 07/10/17 08:59 Last Admin: 05/28/17 17:07 Dose: Not Given Duloxetine HCl (Cymbalta) 60 mg PO DAILY [facility] PRN Reason: Protocol Stop: 07/10/17 08:59 Last Admin: 05/28/17 10:03 Dose: 60 mg Ergocalciferol (Vitamin D) 50,000 iu PO QWED [facility] Stop: 07/09/17 22:14 Last Admin: 05/18/17 16:55 Dose: Not Given Ferrous Sulfate (Iron) 325 mg PO DAILY [facility] Stop: 07/10/17 08:59 Last Admin: 05/28/17 10:03 Dose: 325 mg Fish Oil ([place] 3) 1,000 mg PO DAILY [facility] Stop: 07/10/17 08:59 Last Admin: 05/28/17 10:03 Dose: 1,000 mg Gabapentin (Neurontin) 800 mg PO Q8HR [facility] Stop: 07/10/17 04:59 Last Admin: 05/29/17 04:00 Dose: Not Given Insulin Aspart (Novolog Insulin Sliding Scale) 0 units SUBQ ACHS [facility]N PRN Reason: Protocol Stop: 07/10/17 16:29 Last Admin: 05/29/17 06:36 Dose: Not Given Insulin Detemir (Levemir Insulin) 20 units SUBQ BID [facility]N PRN Reason: Protocol Stop: 07/26/17 08:59 Last Admin: 05/28/17 17:05 Dose: 20 unit Lorazepam (Ativan) 1 mg PO Q4HR PRN; Protocol PRN Reason: Anxiety Stop: 07/17/17 10:33 Last Admin: 05/26/17 17:06 Dose: 1 mg Magnesium Hydroxide (Milk Of Magnesia) 30 ml PO HS PRN PRN Reason: Constipation Stop: 07/09/17 22:15 Pantoprazole Sodium (Protonix) 40 mg PO QDAC [facility] Stop: 07/10/17 07:29 Last Admin: 05/29/17 06:32 Dose: 40 mg Trazodone HCl (Desyrel) 100 mg PO HS [facility] PRN Reason: Protocol Stop: 07/10/17 20:59 Last Admin: 05/28/17 20:21 Dose: Not Given General: No acute distress HEENT: Atraumatic, PERRLA Cardiovascular: Regular rate, Normal S1 Lungs: Clear to auscultation Abdomen: Bowel sounds Assessment/Plan - Problem List Patient Problems: All Active Problems Dehydration (Acute) E86.0 Diabetes (Acute) E11.9 Hypokalemia (Acute) E87.6 Hyponatremia (Acute) E87.1 h/o schizophrenia (Acute) history of psychotic disorder (Acute) history of severe depression (Acute) - Assessment Assessment: Dehydration (Acute) E86.0 Diabetes (Acute) E11.9 Hypokalemia (Acute) E87.6 Hyponatremia (Acute) E87.1 h/o schizophrenia (Acute) history of psychotic disorder (Acute) history of severe depression (Acute) - Plan Plan: as per psych as problems arise Nutritional Asmnt/Malnutr-PDOC - Dietary Evaluation Malnutrition Findings (Please click <Entered> for more info): Nutritional Asmnt/Malnutrition Start: 05/12/17 10: 51 Text: Status: Complete Freq: Document 05/12/17 10:51 GSUN (Rec: 05/12/17 11:17 [email or web address]) Nutritional Asmnt/Malnutrition Patient General Information Nutritional Screening Moderate Risk Diagnosis Schizoaffective disorder bipolar type with psychotic features Pertinent Medical Hx/Surgical Hx DM, HTN, esophageal reflux disease, severe hypokalemia, dementia Subjective Information 61 year old female, transfered from [facility]. Pt was soundly asleep during visit, video games storywriter visited twice attempted to wake pt, unsuccessful. Limited physical assessment, no severe muslce fat wasting noted. Avg 67% of meals since adm, meeting 83% of lower end kcal needs. Per [facility] staff, pt was requesting for snacks and ice cream. Few teeth missing. Current Diet Order/ Nutrition Support Low sodium, CCHO Pertinent Medications Vitamin D, Iron, Moline 3, Novolog, Levemir, MOM, Remeron , Protonix Pertinent Labs 05/11: glucose 508H Nutritional Hx/Data Height 1.68 m Height (Calculated Centimeters) 167.6 Current Weight (lbs) 55.474 kg Weight (Calculated Kilograms) 55.5 Weight (Calculated Grams) 61230.3 [place] Body Weight 130 Weight Status Approriate GI Symptoms Food Allergies No Skin Integrity/Comment: Carlos 20. Skin intact. Current %PO Fair (50-74%) Estimated Nutritional Goals BEE in Kcals: Using Current wt Calories/Kcals/Kg CBW 122.3lb/55.6kg Kcals Calculated 1390-1668kcal (25-30kcla/kg) Protein: Using Current wt Protein Calculated 56g (1g/kg) Fluid: ml 1390-1668ml (1ml/kcal) Nutritional Problem 1. Problem Problem Altered nutrition related laboratory values related to Etiology DM aeb Signs/Symptoms: glucose 508 Intervention/Recommendation Comments 1. Continue with current diet order. Clarify "CCHO" as " [id number]." Avg PO intake is inadequate, meeting 83% lwoer end kcal needs. 2. Provide nutrition edu DM as able, pt was soundly asleep during visit. 3. Monitor glucose, adjust insulin, glucose 508. Expected Outcomes/Goals Expected Outcomes/Goals 1. PO intake continue to meet at least 75% of estimated nutritinoal needs.
--- NOTE | 2017-05-29 07:18 | General Progress Note ---
Subjective - Review of Systems Events since last encounter: patient awake alert in no distress Objective - Results Result Diagrams: 05/16/17 07:30 Recent Labs: Laboratory Last Values Sodium 135 mEq/L (136-145) L 05/16/17 07:30 Potassium 3.5 mEq/L (3.5-5.1) 05/16/17 07:30 Chloride 104 mEq/L (98-107) 05/16/17 07:30 Carbon Dioxide 27.8 mEq/L (21.0-31.0) 05/16/17 07:30 Anion Gap 6.7 (7.0-16.0) L 05/16/17 07:30 BUN 13 mg/dL (7-25) 05/16/17 07:30 Creatinine 0.8 mg/dL (0.6-1.2) 05/16/17 07:30 Est GFR ( Amer) > 60.0 ml/min (>90) 05/16/17 07:30 Est GFR (Non-Af Amer) > 60.0 ml/min 05/16/17 07:30 BUN/Creatinine Ratio 16.3 05/16/17 07:30 Glucose 461 mg/dL (40-70) H* 05/26/17 12:20 POC Glucose 95 MG/DL (70 - 105) 05/29/17 06:35 Calcium 8.2 mg/dL (8.6-10.3) L 05/16/17 07:30 Total Bilirubin 0.3 mg/dL (0.3-1.0) 05/16/17 07:30 AST 94 U/L (13-39) H 05/16/17 07:30 ALT 55 U/L (7-52) H 05/16/17 07:30 Alkaline Phosphatase 73 U/L (34-104) 05/16/17 07:30 Total Protein 4.7 gm/dL (6.0-8.3) L 05/16/17 07:30 Albumin 2.5 gm/dL (3.7-5.3) L 05/16/17 07:30 Globulin 2.2 gm/dL 05/16/17 07:30 Albumin/Globulin Ratio 1.1 (1.0-1.8) 05/16/17 07:30 - Physical Exam Vitals and I&O: Vital Signs Temp 98.0 F 05/28/17 20:00 Pulse 74 05/28/17 20:00 Resp 20 05/28/17 20:00 BP 106/60 05/28/17 20:00 Pulse Ox 98 05/28/17 20:00 Intake & Output 05/28/17 05/29/17 05/29/17 19:59 06:59 18:59 Intake Total Balance Intake: Oral Other: # Voids # Bowel Movements Active Medications: Current Medications Acetaminophen (Tylenol) 650 mg PO Q4H PRN PRN Reason: Mild-Moderate Pain or T >101 Stop: 07/09/17 22:29 Acetaminophen (Tylenol Extra Strength) 500 mg PO Q4H PRN PRN Reason: Pain (Moderate) Stop: 07/09/17 22:30 Al Hydrox/Mg Hydrox/Simethicone (Maalox) 30 ml PO Q4HR PRN PRN Reason: GI DISTRESS Stop: 07/09/17 22:31 Aripiprazole (Abilify) 20 mg PO HS [facility] Stop: 07/26/17 20:59 Last Admin: 05/28/17 20:20 Dose: Not Given Carvedilol (Coreg) 12.5 mg PO BID DEVAUGHN Stop: 07/10/17 08:59 Last Admin: 05/28/17 17:07 Dose: Not Given Duloxetine HCl (Cymbalta) 60 mg PO DAILY DEVAUGHN PRN Reason: Protocol Stop: 07/10/17 08:59 Last Admin: 05/28/17 10:03 Dose: 60 mg Ergocalciferol (Vitamin D) 50,000 iu PO QWED [facility] Stop: 07/09/17 22:14 Last Admin: 05/18/17 16:55 Dose: Not Given Ferrous Sulfate (Iron) 325 mg PO DAILY DEVAUGHN Stop: 07/10/17 08:59 Last Admin: 05/28/17 10:03 Dose: 325 mg Fish Oil ([place]aver[place] 3) 1,000 mg PO DAILY DEVAUGHN Stop: 07/10/17 08:59 Last Admin: 05/28/17 10:03 Dose: 1,000 mg Gabapentin (Neurontin) 800 mg PO Q8HR DEVAUGHN Stop: 07/10/17 04:59 Last Admin: 05/29/17 04:00 Dose: Not Given Insulin Aspart (Novolog Insulin Sliding Scale) 0 units SUBQ ACHS DEVAUGHN PRN Reason: Protocol Stop: 07/10/17 16:29 Last Admin: 05/29/17 06:36 Dose: Not Given Insulin Detemir (Levemir Insulin) 20 units SUBQ BID DEVAUGHN PRN Reason: Protocol Stop: 07/26/17 08:59 Last Admin: 05/28/17 17:05 Dose: 20 unit Lorazepam (Ativan) 1 mg PO Q4HR PRN; Protocol PRN Reason: Anxiety Stop: 07/17/17 10:33 Last Admin: 05/26/17 17:06 Dose: 1 mg Magnesium Hydroxide (Milk Of Magnesia) 30 ml PO HS PRN PRN Reason: Constipation Stop: 07/09/17 22:15 Pantoprazole Sodium (Protonix) 40 mg PO QDAC DEVAUGHN Stop: 07/10/17 07:29 Last Admin: 05/29/17 06:32 Dose: 40 mg Trazodone HCl (Desyrel) 100 mg PO HS DEVAUGHN PRN Reason: Protocol Stop: 07/10/17 20:59 Last Admin: 05/28/17 20:21 Dose: Not Given General: No acute distress HEENT: Atraumatic, PERRLA Cardiovascular: Regular rate, Normal S1 Lungs: Clear to auscultation Abdomen: Bowel sounds Assessment/Plan - Problem List Patient Problems: All Active Problems Dehydration (Acute) E86.0 Diabetes (Acute) E11.9 Hypokalemia (Acute) E87.6 Hyponatremia (Acute) E87.1 h/o schizophrenia (Acute) history of psychotic disorder (Acute) history of severe depression (Acute) - Assessment Assessment: Dehydration (Acute) E86.0 Diabetes (Acute) E11.9 Hypokalemia (Acute) E87.6 Hyponatremia (Acute) E87.1 h/o schizophrenia (Acute) history of psychotic disorder (Acute) history of severe depression (Acute) - Plan Plan: as per psych as problems arise Nutritional Asmnt/Malnutr-PDOC - Dietary Evaluation Malnutrition Findings (Please click <Entered> for more info): Nutritional Asmnt/Malnutrition Start: 05/12/17 10: 51 Text: Status: Complete Freq: Document 05/12/17 10:51 GSUN (Rec: 05/12/17 11:17 GSUN [email or web address]) Nutritional Asmnt/Malnutrition Patient General Information Nutritional Screening Moderate Risk Diagnosis Schizoaffective disorder bipolar type with psychotic features Pertinent Medical Hx/Surgical Hx DM, HTN, esophageal reflux disease, severe hypokalemia, dementia Subjective Information 61 year old female, transfered from [facility]. Pt was soundly asleep during visit, verse writer visited twice attempted to wake pt, unsuccessful. Limited physical assessment, no severe muslce fat wasting noted. Avg 67% of meals since adm, meeting 83% of lower end kcal needs. Per [facility] staff, pt was requesting for snacks and ice cream. Few teeth missing. Current Diet Order/ Nutrition Support Low sodium, CCHO Pertinent Medications Vitamin D, Iron, [place] 3, Novolog, Levemir, MOM, Remeron , Protonix Pertinent Labs 05/11: glucose 508H Nutritional Hx/Data Height 1.68 m Height (Calculated Centimeters) 167.6 Current Weight (lbs) 55.474 kg Weight (Calculated Kilograms) 55.5 Weight (Calculated Grams) 42699.3 [place] Body Weight 130 Weight Status Approriate GI Symptoms Food Allergies No Skin Integrity/Comment: Carlos 20. Skin intact. Current %PO Fair (50-74%) Estimated Nutritional Goals BEE in Kcals: Using Current wt Calories/Kcals/Kg CBW 122.3lb/55.6kg Kcals Calculated 1390-1668kcal (25-30kcla/kg) Protein: Using Current wt Protein Calculated 56g (1g/kg) Fluid: ml 1390-1668ml (1ml/kcal) Nutritional Problem 1. Problem Problem Altered nutrition related laboratory values related to Etiology DM aeb Signs/Symptoms: glucose 508 Intervention/Recommendation Comments 1. Continue with current diet order. Clarify "CCHO" as " [id number]." Avg PO intake is inadequate, meeting 83% lwoer end kcal needs. 2. Provide nutrition edu DM as able, pt was soundly asleep during visit. 3. Monitor glucose, adjust insulin, glucose 508. Expected Outcomes/Goals Expected Outcomes/Goals 1. PO intake continue to meet at least 75% of estimated nutritinoal needs.
--- NOTE | 2017-05-29 07:18 | General Progress Note ---
Subjective - Review of Systems Events since last encounter: patient awake alert in no distress Objective - Results Result Diagrams: 05/16/17 07:30 Recent Labs: Laboratory Last Values Sodium 135 mEq/L (136-145) L 05/16/17 07:30 Potassium 3.5 mEq/L (3.5-5.1) 05/16/17 07:30 Chloride 104 mEq/L (98-107) 05/16/17 07:30 Carbon Dioxide 27.8 mEq/L (21.0-31.0) 05/16/17 07:30 Anion Gap 6.7 (7.0-16.0) L 05/16/17 07:30 BUN 13 mg/dL (7-25) 05/16/17 07:30 Creatinine 0.8 mg/dL (0.6-1.2) 05/16/17 07:30 Est GFR ( Amer) > 60.0 ml/min (>90) 05/16/17 07:30 Est GFR (Non-Af Amer) > 60.0 ml/min 05/16/17 07:30 BUN/Creatinine Ratio 16.3 05/16/17 07:30 Glucose 461 mg/dL (40-70) H* 05/26/17 12:20 POC Glucose 95 MG/DL (70 - 105) 05/29/17 06:35 Calcium 8.2 mg/dL (8.6-10.3) L 05/16/17 07:30 Total Bilirubin 0.3 mg/dL (0.3-1.0) 05/16/17 07:30 AST 94 U/L (13-39) H 05/16/17 07:30 ALT 55 U/L (7-52) H 05/16/17 07:30 Alkaline Phosphatase 73 U/L (34-104) 05/16/17 07:30 Total Protein 4.7 gm/dL (6.0-8.3) L 05/16/17 07:30 Albumin 2.5 gm/dL (3.7-5.3) L 05/16/17 07:30 Globulin 2.2 gm/dL 05/16/17 07:30 Albumin/Globulin Ratio 1.1 (1.0-1.8) 05/16/17 07:30 - Physical Exam Vitals and I&O: Vital Signs Temp 98.0 F 05/28/17 20:00 Pulse 74 05/28/17 20:00 Resp 20 05/28/17 20:00 BP 106/60 05/28/17 20:00 Pulse Ox 98 05/28/17 20:00 Intake & Output 05/28/17 05/29/17 05/29/17 19:59 06:59 18:59 Intake Total Balance Intake: Oral Other: # Voids # Bowel Movements Active Medications: Current Medications Acetaminophen (Tylenol) 650 mg PO Q4H PRN PRN Reason: Mild-Moderate Pain or T >101 Stop: 07/09/17 22:29 Acetaminophen (Tylenol Extra Strength) 500 mg PO Q4H PRN PRN Reason: Pain (Moderate) Stop: 07/09/17 22:30 Al Hydrox/Mg Hydrox/Simethicone (Maalox) 30 ml PO Q4HR PRN PRN Reason: GI DISTRESS Stop: 07/09/17 22:31 Aripiprazole (Abilify) 20 mg PO HS [facility] Stop: 07/26/17 20:59 Last Admin: 05/28/17 20:20 Dose: Not Given Carvedilol (Coreg) 12.5 mg PO BID DEVAUGHN Stop: 07/10/17 08:59 Last Admin: 05/28/17 17:07 Dose: Not Given Duloxetine HCl (Cymbalta) 60 mg PO DAILY DEVAUGHN PRN Reason: Protocol Stop: 07/10/17 08:59 Last Admin: 05/28/17 10:03 Dose: 60 mg Ergocalciferol (Vitamin D) 50,000 iu PO QWED [facility] Stop: 07/09/17 22:14 Last Admin: 05/18/17 16:55 Dose: Not Given Ferrous Sulfate (Iron) 325 mg PO DAILY DEVAUGHN Stop: 07/10/17 08:59 Last Admin: 05/28/17 10:03 Dose: 325 mg Fish Oil (Galt 3) 1,000 mg PO DAILY DEVAUGHN Stop: 07/10/17 08:59 Last Admin: 05/28/17 10:03 Dose: 1,000 mg Gabapentin (Neurontin) 800 mg PO Q8HR DEVAUGHN Stop: 07/10/17 04:59 Last Admin: 05/29/17 04:00 Dose: Not Given Insulin Aspart (Novolog Insulin Sliding Scale) 0 units SUBQ ACHS DEVAUGHN PRN Reason: Protocol Stop: 07/10/17 16:29 Last Admin: 05/29/17 06:36 Dose: Not Given Insulin Detemir (Levemir Insulin) 20 units SUBQ BID DEVAUGHN PRN Reason: Protocol Stop: 07/26/17 08:59 Last Admin: 05/28/17 17:05 Dose: 20 unit Lorazepam (Ativan) 1 mg PO Q4HR PRN; Protocol PRN Reason: Anxiety Stop: 07/17/17 10:33 Last Admin: 05/26/17 17:06 Dose: 1 mg Magnesium Hydroxide (Milk Of Magnesia) 30 ml PO HS PRN PRN Reason: Constipation Stop: 07/09/17 22:15 Pantoprazole Sodium (Protonix) 40 mg PO QDAC DEVAUGHN Stop: 07/10/17 07:29 Last Admin: 05/29/17 06:32 Dose: 40 mg Trazodone HCl (Desyrel) 100 mg PO HS DEVAUGHN PRN Reason: Protocol Stop: 07/10/17 20:59 Last Admin: 05/28/17 20:21 Dose: Not Given General: No acute distress HEENT: Atraumatic, PERRLA Cardiovascular: Regular rate, Normal S1 Lungs: Clear to auscultation Abdomen: Bowel sounds Assessment/Plan - Problem List Patient Problems: All Active Problems Dehydration (Acute) E86.0 Diabetes (Acute) E11.9 Hypokalemia (Acute) E87.6 Hyponatremia (Acute) E87.1 h/o schizophrenia (Acute) history of psychotic disorder (Acute) history of severe depression (Acute) - Assessment Assessment: Dehydration (Acute) E86.0 Diabetes (Acute) E11.9 Hypokalemia (Acute) E87.6 Hyponatremia (Acute) E87.1 h/o schizophrenia (Acute) history of psychotic disorder (Acute) history of severe depression (Acute) - Plan Plan: as per psych as problems arise Nutritional Asmnt/Malnutr-PDOC - Dietary Evaluation Malnutrition Findings (Please click <Entered> for more info): Nutritional Asmnt/Malnutrition Start: 05/12/17 10: 51 Text: Status: Complete Freq: Document 05/12/17 10:51 GSUN (Rec: 05/12/17 11:17 GSUN [email or web address]) Nutritional Asmnt/Malnutrition Patient General Information Nutritional Screening Moderate Risk Diagnosis Schizoaffective disorder bipolar type with psychotic features Pertinent Medical Hx/Surgical Hx DM, HTN, esophageal reflux disease, severe hypokalemia, dementia Subjective Information 61 year old female, transfered from [facility]. Pt was soundly asleep during visit, entry writer visited twice attempted to wake pt, unsuccessful. Limited physical assessment, no severe muslce fat wasting noted. Avg 67% of meals since adm, meeting 83% of lower end kcal needs. Per [facility] staff, pt was requesting for snacks and ice cream. Few teeth missing. Current Diet Order/ Nutrition Support Low sodium, CCHO Pertinent Medications Vitamin D, Iron, G[place] 3, Novolog, Levemir, MOM, Remeron , Protonix Pertinent Labs 05/11: glucose 508H Nutritional Hx/Data Height 1.68 m Height (Calculated Centimeters) 167.6 Current Weight (lbs) 55.474 kg Weight (Calculated Kilograms) 55.5 Weight (Calculated Grams) 05406.3 [place] Body Weight 130 Weight Status Approriate GI Symptoms Food Allergies No Skin Integrity/Comment: Carlos 20. Skin intact. Current %PO Fair (50-74%) Estimated Nutritional Goals BEE in Kcals: Using Current wt Calories/Kcals/Kg CBW 122.3lb/55.6kg Kcals Calculated 1390-1668kcal (25-30kcla/kg) Protein: Using Current wt Protein Calculated 56g (1g/kg) Fluid: ml 1390-1668ml (1ml/kcal) Nutritional Problem 1. Problem Problem Altered nutrition related laboratory values related to Etiology DM aeb Signs/Symptoms: glucose 508 Intervention/Recommendation Comments 1. Continue with current diet order. Clarify "CCHO" as " [id number]." Avg PO intake is inadequate, meeting 83% lwoer end kcal needs. 2. Provide nutrition edu DM as able, pt was soundly asleep during visit. 3. Monitor glucose, adjust insulin, glucose 508. Expected Outcomes/Goals Expected Outcomes/Goals 1. PO intake continue to meet at least 75% of estimated nutritinoal needs.
[2017-05-29] MEDS: Fish Oil 1,000 MG SGL PO SCH (08:37)
[2017-05-29] MEDS: Ferrous Sulfate 325 MG TAB PO SCH (08:37)
[2017-05-29] MEDS: Insulin Detemir 100 units/mL 10mL Vial SUBQ SCH ×2 (08:49→18:56)
--- NOTE | 2017-05-29 11:44 | Progress Notes ---
DATE: This is also for yesterday. SUBJECTIVE: Chart reviewed and the patient interviewed. Also, discussed the patient's condition with the staff and reviewed records and labs. The patient is still agitated and she is still in irritable and angry mood. The patient also is still resisting care and she is still fighting with the staff during redirecting her. She also still asking for food and gets aggressive and agitated when she sees food and tried to grab food from others and from staff. Otherwise, the patient is compliant with taking her medications with no side effects of medications. ASSESSMENT: The patient is still aggressive and agitated and can be dangerous to others. TREATMENT PLAN: We will continue monitoring her behavior and her condition closely. Also, we will increase Abilify. Also, continue to work on behavioral modifications and follow up closely. JOB# [id number]
--- NOTE | 2017-05-29 16:06 | Consultation ---
DATE OF CONSULTATION: 05/28/2017 The patient was seen and evaluated. The patient's chart reviewed. This is Dr. Gardner covering for Dr. Crawford. Overnight, nursing staff reported the patient has been isolative and withdrawn, mostly keeping to herself in her room. On [id number] evaluation, the patient denies any side effects to medications. She is observed to be easily withdrawn, in her room, distraught, very disengaged, minimally interactive with the interview. MENTAL STATUS EXAMINATION: Observed to be distraught, overwhelmed, ____. No side effects noted. Irritable, angry mood. ASSESSMENT AND PLAN: This is a 61-year-old female who still presents easily withdrawn, angry, irritable and resisting, unable to formulate a safe plan outside the structured environment. We will continue with her primary psychiatrist treatment plan and goals, which include the current medication regimen of Cymbalta 60 mg a day, gabapentin, and trazodone for severe sleep insomnia. [facility]# [id number]
--- NOTE | 2017-05-29 16:06 | Consultation ---
DATE OF CONSULTATION: 05/28/2017 The patient was seen and evaluated. The patient's chart reviewed. This is Dr. Gardner covering for Dr. Crawford. Overnight, nursing staff reported the patient has been isolative and withdrawn, mostly keeping to herself in her room. On [id number] evaluation, the patient denies any side effects to medications. She is observed to be easily withdrawn, in her room, distraught, very disengaged, minimally interactive with the interview. MENTAL STATUS EXAMINATION: Observed to be distraught, overwhelmed, ____. No side effects noted. Irritable, angry mood. ASSESSMENT AND PLAN: This is a 61-year-old female who still presents easily withdrawn, angry, irritable and resisting, unable to formulate a safe plan outside the structured environment. We will continue with her primary psychiatrist treatment plan and goals, which include the current medication regimen of Cymbalta 60 mg a day, gabapentin, and trazodone for severe sleep insomnia. [facility]# [id number]
--- NOTE | 2017-05-29 16:06 | Consultation ---
DATE OF CONSULTATION: 05/28/2017 The patient was seen and evaluated. The patient's chart reviewed. This is Dr. Gardner covering for Dr. Crawford. Overnight, nursing staff reported the patient has been isolative and withdrawn, mostly keeping to herself in her room. On [id number] evaluation, the patient denies any side effects to medications. She is observed to be easily withdrawn, in her room, distraught, very disengaged, minimally interactive with the interview. MENTAL STATUS EXAMINATION: Observed to be distraught, overwhelmed, ____. No side effects noted. Irritable, angry mood. ASSESSMENT AND PLAN: This is a 61-year-old female who still presents easily withdrawn, angry, irritable and resisting, unable to formulate a safe plan outside the structured environment. We will continue with her primary psychiatrist treatment plan and goals, which include the current medication regimen of Cymbalta 60 mg a day, gabapentin, and trazodone for severe sleep insomnia. [facility]# [id number]
[2017-05-30] MEDS: Pantoprazole 40 mg EC Tab PO SCH (06:41)
[2017-05-30] MEDS: INSULIN ASPART SLIDING SCALE 100 UNITS/ML UNIT SUBQ SCH ×4 (06:44→21:00)
[2017-05-30] MEDS: Ferrous Sulfate 325 MG TAB PO SCH (08:58)
[2017-05-30] MEDS: Fish Oil 1,000 MG SGL PO SCH (08:58)
[2017-05-30] MEDS: Insulin Detemir 100 units/mL 10mL Vial SUBQ SCH ×2 (09:03→17:05)
--- NOTE | 2017-05-30 11:50 | Progress Notes ---
DATE: SUBJECTIVE: The patient was seen and evaluated. The patient's chart reviewed. This is Dr. Gardner covering for Dr. Crawford. Overnight, nursing staff reported that the patient perseverates, still slightly paranoid because of food. Today on [id number] evaluation, the patient presents disorganized. She finds herself disrobing and needing a lot of ADL redirection. MENTAL STATUS EXAMINATION: Disorganized, disheveled, paranoid. ASSESSMENT AND PLAN: The patient is a 61-year-old female, who continues to be still disorganized, needing a lot of redirections to provide simple ADLs and perseverates about food poisoning at this time. Recently, Abilify was increased. We will continue with the current medication regimen as she is still reaching steady state. JOB# [id number]
--- NOTE | 2017-05-30 11:50 | Progress Notes ---
DATE: SUBJECTIVE: The patient was seen and evaluated. The patient's chart reviewed. This is Dr. Gardner covering for Dr. Crawford. Overnight, nursing staff reported that the patient perseverates, still slightly paranoid because of food. Today on [id number] evaluation, the patient presents disorganized. She finds herself disrobing and needing a lot of ADL redirection. MENTAL STATUS EXAMINATION: Disorganized, disheveled, paranoid. ASSESSMENT AND PLAN: The patient is a 61-year-old female, who continues to be still disorganized, needing a lot of redirections to provide simple ADLs and perseverates about food poisoning at this time. Recently, Abilify was increased. We will continue with the current medication regimen as she is still reaching steady state. JOB# [id number]
--- NOTE | 2017-05-30 11:50 | Progress Notes ---
DATE: SUBJECTIVE: The patient was seen and evaluated. The patient's chart reviewed. This is Dr. Gardner covering for Dr. Crawford. Overnight, nursing staff reported that the patient perseverates, still slightly paranoid because of food. Today on [id number] evaluation, the patient presents disorganized. She finds herself disrobing and needing a lot of ADL redirection. MENTAL STATUS EXAMINATION: Disorganized, disheveled, paranoid. ASSESSMENT AND PLAN: The patient is a 61-year-old female, who continues to be still disorganized, needing a lot of redirections to provide simple ADLs and perseverates about food poisoning at this time. Recently, Abilify was increased. We will continue with the current medication regimen as she is still reaching steady state. JOB# [id number]
[2017-05-31] MEDS: INSULIN ASPART SLIDING SCALE 100 UNITS/ML UNIT SUBQ SCH ×2 (06:39→11:50)
--- NOTE | 2017-05-31 06:40 | Progress Notes ---
DATE: SUBJECTIVE: Chart reviewed and the patient interviewed. I also discussed the patient's condition with the staff and reviewed records and labs. The patient is still anxious and she is still confused and gets agitated and irritable at times. The patient also is still suspicious and is still paranoid. The patient also still at times gets agitated with staff and try to grab food from others by force. The patient also is still having mood swings. Otherwise, the patient is compliant with taking her medications and the patient denies any side effects of medications. ASSESSMENT: The patient is still psychotic and agitated. TREATMENT PLAN: Abilify was increased to 20 mg at bedtime. We will continue with same dose. Also, continue to work on her agitation and irritability, and continue to follow up. JOB# [id number]
[2017-05-31] MEDS: Pantoprazole 40 mg EC Tab PO SCH (06:45)
[2017-05-31] MEDS ORDERED: Insulin Detemir 100 units/mL 10mL Vial SUBQ SCH (09:00)
--- NOTE | 2017-05-31 09:00 | General Progress Note ---
Subjective - Review of Systems Events since last encounter: patient continues to be psychotic, agitated Objective - Results Result Diagrams: 05/16/17 07:30 Recent Labs: Laboratory Last Values Sodium 135 mEq/L (136-145) L 05/16/17 07:30 Potassium 3.5 mEq/L (3.5-5.1) 05/16/17 07:30 Chloride 104 mEq/L (98-107) 05/16/17 07:30 Carbon Dioxide 27.8 mEq/L (21.0-31.0) 05/16/17 07:30 Anion Gap 6.7 (7.0-16.0) L 05/16/17 07:30 BUN 13 mg/dL (7-25) 05/16/17 07:30 Creatinine 0.8 mg/dL (0.6-1.2) 05/16/17 07:30 Est GFR ( Amer) > 60.0 ml/min (>90) 05/16/17 07:30 Est GFR (Non-Af Amer) > 60.0 ml/min 05/16/17 07:30 BUN/Creatinine Ratio 16.3 05/16/17 07:30 Glucose 461 mg/dL (40-70) H* 05/26/17 12:20 POC Glucose 132 MG/DL (70 - 105) H 05/31/17 06:16 Calcium 8.2 mg/dL (8.6-10.3) L 05/16/17 07:30 Total Bilirubin 0.3 mg/dL (0.3-1.0) 05/16/17 07:30 AST 94 U/L (13-39) H 05/16/17 07:30 ALT 55 U/L (7-52) H 05/16/17 07:30 Alkaline Phosphatase 73 U/L (34-104) 05/16/17 07:30 Total Protein 4.7 gm/dL (6.0-8.3) L 05/16/17 07:30 Albumin 2.5 gm/dL (3.7-5.3) L 05/16/17 07:30 Globulin 2.2 gm/dL 05/16/17 07:30 Albumin/Globulin Ratio 1.1 (1.0-1.8) 05/16/17 07:30 - Physical Exam Vitals and I&O: Vital Signs Temp 97.9 F 05/31/17 06:41 Pulse 60 05/31/17 06:41 Resp 19 05/31/17 06:41 BP 161/88 05/31/17 06:41 Pulse Ox 97 05/31/17 06:41 Intake & Output 05/30/17 05/31/17 05/31/17 18:59 06:59 18:59 Intake Total 360 Balance 360 Intake: Oral 360 Other: # Voids 1 # Bowel Movements 0 Active Medications: Current Medications Acetaminophen (Tylenol) 650 mg PO Q4H PRN PRN Reason: Mild-Moderate Pain or T >101 Stop: 07/09/17 22:29 Last Admin: 05/29/17 20:53 Dose: 650 mg Acetaminophen (Tylenol Extra Strength) 500 mg PO Q4H PRN PRN Reason: Pain (Moderate) Stop: 07/09/17 22:30 Al Hydrox/Mg Hydrox/Simethicone (Maalox) 30 ml PO Q4HR PRN PRN Reason: GI DISTRESS Stop: 07/09/17 22:31 Aripiprazole (Abilify) 20 mg PO HS [facility] Stop: 07/26/17 20:59 Last Admin: 05/30/17 22:00 Dose: 20 mg Carvedilol (Coreg) 12.5 mg PO BID [facility] Stop: 07/10/17 08:59 Last Admin: 05/30/17 16:26 Dose: 12.5 mg Duloxetine HCl (Cymbalta) 60 mg PO DAILY [facility]AUGHN PRN Reason: Protocol Stop: 07/10/17 08:59 Last Admin: 05/30/17 08:58 Dose: 60 mg Ergocalciferol (Vitamin D) 50,000 iu PO QWED [facility] Stop: 07/09/17 22:14 Last Admin: 05/18/17 16:55 Dose: Not Given Ferrous Sulfate (Iron) 325 mg PO DAILY [facility] Stop: 07/10/17 08:59 Last Admin: 05/30/17 08:58 Dose: 325 mg Fish Oil ([place] 3) 1,000 mg PO DAILY [facility] Stop: 07/10/17 08:59 Last Admin: 05/30/17 08:58 Dose: 1,000 mg Gabapentin (Neurontin) 800 mg PO Q8HR [facility] Stop: 07/10/17 04:59 Last Admin: 05/31/17 04:25 Dose: 800 mg Insulin Aspart (Novolog Insulin Sliding Scale) 0 units SUBQ ACHS [facility]AUGHN PRN Reason: Protocol Stop: 07/10/17 16:29 Last Admin: 05/31/17 06:39 Dose: Not Given Insulin Detemir (Levemir Insulin) 20 units SUBQ Q12HR [facility]N PRN Reason: Protocol Stop: 07/30/17 08:59 Lorazepam (Ativan) 1 mg PO Q4HR PRN; Protocol PRN Reason: Anxiety Stop: 07/17/17 10:33 Last Admin: 05/30/17 08:58 Dose: 1 mg Magnesium Hydroxide (Milk Of Magnesia) 30 ml PO HS PRN PRN Reason: Constipation Stop: 07/09/17 22:15 Pantoprazole Sodium (Protonix) 40 mg PO QDAC [facility] Stop: 07/10/17 07:29 Last Admin: 05/31/17 06:45 Dose: Not Given Trazodone HCl (Desyrel) 100 mg PO HS [facility]N PRN Reason: Protocol Stop: 07/10/17 20:59 Last Admin: 05/30/17 22:00 Dose: 100 mg General: No acute distress HEENT: Atraumatic, PERRLA Cardiovascular: Regular rate, Normal S1 Lungs: Clear to auscultation Abdomen: Bowel sounds Assessment/Plan - Problem List Patient Problems: All Active Problems Dehydration (Acute) E86.0 Diabetes (Acute) E11.9 Hypokalemia (Acute) E87.6 Hyponatremia (Acute) E87.1 h/o schizophrenia (Acute) history of psychotic disorder (Acute) history of severe depression (Acute) - Assessment Assessment: Dehydration (Acute) E86.0 Diabetes (Acute) E11.9 Hypokalemia (Acute) E87.6 Hyponatremia (Acute) E87.1 h/o schizophrenia (Acute) history of psychotic disorder (Acute) history of severe depression (Acute) - Plan Plan: as per psych as problems arise Nutritional Asmnt/Malnutr-PDOC - Dietary Evaluation Malnutrition Findings (Please click <Entered> for more info): Nutritional Asmnt/Malnutrition Start: 05/12/17 10: 51 Text: Status: Complete Freq: Document 05/12/17 10:51 GSUN (Rec: 05/12/17 11:17 GSUN [facility]) Nutritional Asmnt/Malnutrition Patient General Information Nutritional Screening Moderate Risk Diagnosis Schizoaffective disorder bipolar type with psychotic features Pertinent Medical Hx/Surgical Hx DM, HTN, esophageal reflux disease, severe hypokalemia, dementia Subjective Information 61 year old female, transfered from [facility]. Pt was soundly asleep during visit, senior writer visited twice attempted to wake pt, unsuccessful. Limited physical assessment, no severe muslce fat wasting noted. Avg 67% of meals since adm, meeting 83% of lower end kcal needs. Per [facility] staff, pt was requesting for snacks and ice cream. Few teeth missing. Current Diet Order/ Nutrition Support Low sodium, CCHO Pertinent Medications Vitamin D, Iron, [place] 3, Novolog, Levemir, MOM, Remeron , Protonix Pertinent Labs 05/11: glucose 508H Nutritional Hx/Data Height 1.68 m Height (Calculated Centimeters) 167.6 Current Weight (lbs) 55.474 kg Weight (Calculated Kilograms) 55.5 Weight (Calculated Grams) 94567.3 [place] Body Weight 130 Weight Status Approriate GI Symptoms Food Allergies No Skin Integrity/Comment: Carlos 20. Skin intact. Current %PO Fair (50-74%) Estimated Nutritional Goals BEE in Kcals: Using Current wt Calories/Kcals/Kg CBW 122.3lb/55.6kg Kcals Calculated 1390-1668kcal (25-30kcla/kg) Protein: Using Current wt Protein Calculated 56g (1g/kg) Fluid: ml 1390-1668ml (1ml/kcal) Nutritional Problem 1. Problem Problem Altered nutrition related laboratory values related to Etiology DM aeb Signs/Symptoms: glucose 508 Intervention/Recommendation Comments 1. Continue with current diet order. Clarify "CCHO" as " [id number]." Avg PO intake is inadequate, meeting 83% lwoer end kcal needs. 2. Provide nutrition edu DM as able, pt was soundly asleep during visit. 3. Monitor glucose, adjust insulin, glucose 508. Expected Outcomes/Goals Expected Outcomes/Goals 1. PO intake continue to meet at least 75% of estimated nutritinoal needs.
--- NOTE | 2017-05-31 09:00 | General Progress Note ---
Subjective - Review of Systems Events since last encounter: patient continues to be psychotic, agitated Objective - Results Result Diagrams: 05/16/17 07:30 Recent Labs: Laboratory Last Values Sodium 135 mEq/L (136-145) L 05/16/17 07:30 Potassium 3.5 mEq/L (3.5-5.1) 05/16/17 07:30 Chloride 104 mEq/L (98-107) 05/16/17 07:30 Carbon Dioxide 27.8 mEq/L (21.0-31.0) 05/16/17 07:30 Anion Gap 6.7 (7.0-16.0) L 05/16/17 07:30 BUN 13 mg/dL (7-25) 05/16/17 07:30 Creatinine 0.8 mg/dL (0.6-1.2) 05/16/17 07:30 Est GFR ( Amer) > 60.0 ml/min (>90) 05/16/17 07:30 Est GFR (Non-Af Amer) > 60.0 ml/min 05/16/17 07:30 BUN/Creatinine Ratio 16.3 05/16/17 07:30 Glucose 461 mg/dL (40-70) H* 05/26/17 12:20 POC Glucose 132 MG/DL (70 - 105) H 05/31/17 06:16 Calcium 8.2 mg/dL (8.6-10.3) L 05/16/17 07:30 Total Bilirubin 0.3 mg/dL (0.3-1.0) 05/16/17 07:30 AST 94 U/L (13-39) H 05/16/17 07:30 ALT 55 U/L (7-52) H 05/16/17 07:30 Alkaline Phosphatase 73 U/L (34-104) 05/16/17 07:30 Total Protein 4.7 gm/dL (6.0-8.3) L 05/16/17 07:30 Albumin 2.5 gm/dL (3.7-5.3) L 05/16/17 07:30 Globulin 2.2 gm/dL 05/16/17 07:30 Albumin/Globulin Ratio 1.1 (1.0-1.8) 05/16/17 07:30 - Physical Exam Vitals and I&O: Vital Signs Temp 97.9 F 05/31/17 06:41 Pulse 60 05/31/17 06:41 Resp 19 05/31/17 06:41 BP 161/88 05/31/17 06:41 Pulse Ox 97 05/31/17 06:41 Intake & Output 05/30/17 05/31/17 05/31/17 18:59 06:59 18:59 Intake Total 360 Balance 360 Intake: Oral 360 Other: # Voids 1 # Bowel Movements 0 Active Medications: Current Medications Acetaminophen (Tylenol) 650 mg PO Q4H PRN PRN Reason: Mild-Moderate Pain or T >101 Stop: 07/09/17 22:29 Last Admin: 05/29/17 20:53 Dose: 650 mg Acetaminophen (Tylenol Extra Strength) 500 mg PO Q4H PRN PRN Reason: Pain (Moderate) Stop: 07/09/17 22:30 Al Hydrox/Mg Hydrox/Simethicone (Maalox) 30 ml PO Q4HR PRN PRN Reason: GI DISTRESS Stop: 07/09/17 22:31 Aripiprazole (Abilify) 20 mg PO HS [facility] Stop: 07/26/17 20:59 Last Admin: 05/30/17 22:00 Dose: 20 mg Carvedilol (Coreg) 12.5 mg PO BID [facility] Stop: 07/10/17 08:59 Last Admin: 05/30/17 16:26 Dose: 12.5 mg Duloxetine HCl (Cymbalta) 60 mg PO DAILY [facility]N PRN Reason: Protocol Stop: 07/10/17 08:59 Last Admin: 05/30/17 08:58 Dose: 60 mg Ergocalciferol (Vitamin D) 50,000 iu PO QWED [facility] Stop: 07/09/17 22:14 Last Admin: 05/18/17 16:55 Dose: Not Given Ferrous Sulfate (Iron) 325 mg PO DAILY [facility] Stop: 07/10/17 08:59 Last Admin: 05/30/17 08:58 Dose: 325 mg Fish Oil ([place] 3) 1,000 mg PO DAILY [facility] Stop: 07/10/17 08:59 Last Admin: 05/30/17 08:58 Dose: 1,000 mg Gabapentin (Neurontin) 800 mg PO Q8HR [facility] Stop: 07/10/17 04:59 Last Admin: 05/31/17 04:25 Dose: 800 mg Insulin Aspart (Novolog Insulin Sliding Scale) 0 units SUBQ ACHS [facility]GHN PRN Reason: Protocol Stop: 07/10/17 16:29 Last Admin: 05/31/17 06:39 Dose: Not Given Insulin Detemir (Levemir Insulin) 20 units SUBQ Q12HR [facility] PRN Reason: Protocol Stop: 07/30/17 08:59 Lorazepam (Ativan) 1 mg PO Q4HR PRN; Protocol PRN Reason: Anxiety Stop: 07/17/17 10:33 Last Admin: 05/30/17 08:58 Dose: 1 mg Magnesium Hydroxide (Milk Of Magnesia) 30 ml PO HS PRN PRN Reason: Constipation Stop: 07/09/17 22:15 Pantoprazole Sodium (Protonix) 40 mg PO QDAC [facility] Stop: 07/10/17 07:29 Last Admin: 05/31/17 06:45 Dose: Not Given Trazodone HCl (Desyrel) 100 mg PO HS [facility] PRN Reason: Protocol Stop: 07/10/17 20:59 Last Admin: 05/30/17 22:00 Dose: 100 mg General: No acute distress HEENT: Atraumatic, PERRLA Cardiovascular: Regular rate, Normal S1 Lungs: Clear to auscultation Abdomen: Bowel sounds Assessment/Plan - Problem List Patient Problems: All Active Problems Dehydration (Acute) E86.0 Diabetes (Acute) E11.9 Hypokalemia (Acute) E87.6 Hyponatremia (Acute) E87.1 h/o schizophrenia (Acute) history of psychotic disorder (Acute) history of severe depression (Acute) - Assessment Assessment: Dehydration (Acute) E86.0 Diabetes (Acute) E11.9 Hypokalemia (Acute) E87.6 Hyponatremia (Acute) E87.1 h/o schizophrenia (Acute) history of psychotic disorder (Acute) history of severe depression (Acute) - Plan Plan: as per psych as problems arise Nutritional Asmnt/Malnutr-PDOC - Dietary Evaluation Malnutrition Findings (Please click <Entered> for more info): Nutritional Asmnt/Malnutrition Start: 05/12/17 10: 51 Text: Status: Complete Freq: Document 05/12/17 10:51 GSUN (Rec: 05/12/17 11:17 GSUN [facility]) Nutritional Asmnt/Malnutrition Patient General Information Nutritional Screening Moderate Risk Diagnosis Schizoaffective disorder bipolar type with psychotic features Pertinent Medical Hx/Surgical Hx DM, HTN, esophageal reflux disease, severe hypokalemia, dementia Subjective Information 61 year old female, transfered from [facility]. Pt was soundly asleep during visit, check writer salesperson visited twice attempted to wake pt, unsuccessful. Limited physical assessment, no severe muslce fat wasting noted. Avg 67% of meals since adm, meeting 83% of lower end kcal needs. Per [facility] staff, pt was requesting for snacks and ice cream. Few teeth missing. Current Diet Order/ Nutrition Support Low sodium, CCHO Pertinent Medications Vitamin D, Iron, [place] 3, Novolog, Levemir, MOM, Remeron , Protonix Pertinent Labs 05/11: glucose 508H Nutritional Hx/Data Height 1.68 m Height (Calculated Centimeters) 167.6 Current Weight (lbs) 55.474 kg Weight (Calculated Kilograms) 55.5 Weight (Calculated Grams) 13717.3 [place] Body Weight 130 Weight Status Approriate GI Symptoms Food Allergies No Skin Integrity/Comment: Carlos 20. Skin intact. Current %PO Fair (50-74%) Estimated Nutritional Goals BEE in Kcals: Using Current wt Calories/Kcals/Kg CBW 122.3lb/55.6kg Kcals Calculated 1390-1668kcal (25-30kcla/kg) Protein: Using Current wt Protein Calculated 56g (1g/kg) Fluid: ml 1390-1668ml (1ml/kcal) Nutritional Problem 1. Problem Problem Altered nutrition related laboratory values related to Etiology DM aeb Signs/Symptoms: glucose 508 Intervention/Recommendation Comments 1. Continue with current diet order. Clarify "CCHO" as " [id number]." Avg PO intake is inadequate, meeting 83% lwoer end kcal needs. 2. Provide nutrition edu DM as able, pt was soundly asleep during visit. 3. Monitor glucose, adjust insulin, glucose 508. Expected Outcomes/Goals Expected Outcomes/Goals 1. PO intake continue to meet at least 75% of estimated nutritinoal needs.
--- NOTE | 2017-05-31 09:00 | General Progress Note ---
Subjective - Review of Systems Events since last encounter: patient continues to be psychotic, agitated Objective - Results Result Diagrams: 05/16/17 07:30 Recent Labs: Laboratory Last Values Sodium 135 mEq/L (136-145) L 05/16/17 07:30 Potassium 3.5 mEq/L (3.5-5.1) 05/16/17 07:30 Chloride 104 mEq/L (98-107) 05/16/17 07:30 Carbon Dioxide 27.8 mEq/L (21.0-31.0) 05/16/17 07:30 Anion Gap 6.7 (7.0-16.0) L 05/16/17 07:30 BUN 13 mg/dL (7-25) 05/16/17 07:30 Creatinine 0.8 mg/dL (0.6-1.2) 05/16/17 07:30 Est GFR ( Amer) > 60.0 ml/min (>90) 05/16/17 07:30 Est GFR (Non-Af Amer) > 60.0 ml/min 05/16/17 07:30 BUN/Creatinine Ratio 16.3 05/16/17 07:30 Glucose 461 mg/dL (40-70) H* 05/26/17 12:20 POC Glucose 132 MG/DL (70 - 105) H 05/31/17 06:16 Calcium 8.2 mg/dL (8.6-10.3) L 05/16/17 07:30 Total Bilirubin 0.3 mg/dL (0.3-1.0) 05/16/17 07:30 AST 94 U/L (13-39) H 05/16/17 07:30 ALT 55 U/L (7-52) H 05/16/17 07:30 Alkaline Phosphatase 73 U/L (34-104) 05/16/17 07:30 Total Protein 4.7 gm/dL (6.0-8.3) L 05/16/17 07:30 Albumin 2.5 gm/dL (3.7-5.3) L 05/16/17 07:30 Globulin 2.2 gm/dL 05/16/17 07:30 Albumin/Globulin Ratio 1.1 (1.0-1.8) 05/16/17 07:30 - Physical Exam Vitals and I&O: Vital Signs Temp 97.9 F 05/31/17 06:41 Pulse 60 05/31/17 06:41 Resp 19 05/31/17 06:41 BP 161/88 05/31/17 06:41 Pulse Ox 97 05/31/17 06:41 Intake & Output 05/30/17 05/31/17 05/31/17 18:59 06:59 18:59 Intake Total 360 Balance 360 Intake: Oral 360 Other: # Voids 1 # Bowel Movements 0 Active Medications: Current Medications Acetaminophen (Tylenol) 650 mg PO Q4H PRN PRN Reason: Mild-Moderate Pain or T >101 Stop: 07/09/17 22:29 Last Admin: 05/29/17 20:53 Dose: 650 mg Acetaminophen (Tylenol Extra Strength) 500 mg PO Q4H PRN PRN Reason: Pain (Moderate) Stop: 07/09/17 22:30 Al Hydrox/Mg Hydrox/Simethicone (Maalox) 30 ml PO Q4HR PRN PRN Reason: GI DISTRESS Stop: 07/09/17 22:31 Aripiprazole (Abilify) 20 mg PO HS [facility] Stop: 07/26/17 20:59 Last Admin: 05/30/17 22:00 Dose: 20 mg Carvedilol (Coreg) 12.5 mg PO BID [facility] Stop: 07/10/17 08:59 Last Admin: 05/30/17 16:26 Dose: 12.5 mg Duloxetine HCl (Cymbalta) 60 mg PO DAILY [facility]N PRN Reason: Protocol Stop: 07/10/17 08:59 Last Admin: 05/30/17 08:58 Dose: 60 mg Ergocalciferol (Vitamin D) 50,000 iu PO QWED [facility] Stop: 07/09/17 22:14 Last Admin: 05/18/17 16:55 Dose: Not Given Ferrous Sulfate (Iron) 325 mg PO DAILY [facility] Stop: 07/10/17 08:59 Last Admin: 05/30/17 08:58 Dose: 325 mg Fish Oil ([place] 3) 1,000 mg PO DAILY [facility] Stop: 07/10/17 08:59 Last Admin: 05/30/17 08:58 Dose: 1,000 mg Gabapentin (Neurontin) 800 mg PO Q8HR [facility] Stop: 07/10/17 04:59 Last Admin: 05/31/17 04:25 Dose: 800 mg Insulin Aspart (Novolog Insulin Sliding Scale) 0 units SUBQ ACHS [facility]GHN PRN Reason: Protocol Stop: 07/10/17 16:29 Last Admin: 05/31/17 06:39 Dose: Not Given Insulin Detemir (Levemir Insulin) 20 units SUBQ Q12HR [facility]N PRN Reason: Protocol Stop: 07/30/17 08:59 Lorazepam (Ativan) 1 mg PO Q4HR PRN; Protocol PRN Reason: Anxiety Stop: 07/17/17 10:33 Last Admin: 05/30/17 08:58 Dose: 1 mg Magnesium Hydroxide (Milk Of Magnesia) 30 ml PO HS PRN PRN Reason: Constipation Stop: 07/09/17 22:15 Pantoprazole Sodium (Protonix) 40 mg PO QDAC [facility] Stop: 07/10/17 07:29 Last Admin: 05/31/17 06:45 Dose: Not Given Trazodone HCl (Desyrel) 100 mg PO HS [facility] PRN Reason: Protocol Stop: 07/10/17 20:59 Last Admin: 05/30/17 22:00 Dose: 100 mg General: No acute distress HEENT: Atraumatic, PERRLA Cardiovascular: Regular rate, Normal S1 Lungs: Clear to auscultation Abdomen: Bowel sounds Assessment/Plan - Problem List Patient Problems: All Active Problems Dehydration (Acute) E86.0 Diabetes (Acute) E11.9 Hypokalemia (Acute) E87.6 Hyponatremia (Acute) E87.1 h/o schizophrenia (Acute) history of psychotic disorder (Acute) history of severe depression (Acute) - Assessment Assessment: Dehydration (Acute) E86.0 Diabetes (Acute) E11.9 Hypokalemia (Acute) E87.6 Hyponatremia (Acute) E87.1 h/o schizophrenia (Acute) history of psychotic disorder (Acute) history of severe depression (Acute) - Plan Plan: as per psych as problems arise Nutritional Asmnt/Malnutr-PDOC - Dietary Evaluation Malnutrition Findings (Please click <Entered> for more info): Nutritional Asmnt/Malnutrition Start: 05/12/17 10: 51 Text: Status: Complete Freq: Document 05/12/17 10:51 GSUN (Rec: 05/12/17 11:17 GSUN [facility]) Nutritional Asmnt/Malnutrition Patient General Information Nutritional Screening Moderate Risk Diagnosis Schizoaffective disorder bipolar type with psychotic features Pertinent Medical Hx/Surgical Hx DM, HTN, esophageal reflux disease, severe hypokalemia, dementia Subjective Information 61 year old female, transfered from [facility]. Pt was soundly asleep during visit, teletypewriter operator visited twice attempted to wake pt, unsuccessful. Limited physical assessment, no severe muslce fat wasting noted. Avg 67% of meals since adm, meeting 83% of lower end kcal needs. Per [facility] staff, pt was requesting for snacks and ice cream. Few teeth missing. Current Diet Order/ Nutrition Support Low sodium, CCHO Pertinent Medications Vitamin D, Iron, [place] 3, Novolog, Levemir, MOM, Remeron , Protonix Pertinent Labs 05/11: glucose 508H Nutritional Hx/Data Height 1.68 m Height (Calculated Centimeters) 167.6 Current Weight (lbs) 55.474 kg Weight (Calculated Kilograms) 55.5 Weight (Calculated Grams) 02728.3 [place] Body Weight 130 Weight Status Approriate GI Symptoms Food Allergies No Skin Integrity/Comment: Carlos 20. Skin intact. Current %PO Fair (50-74%) Estimated Nutritional Goals BEE in Kcals: Using Current wt Calories/Kcals/Kg CBW 122.3lb/55.6kg Kcals Calculated 1390-1668kcal (25-30kcla/kg) Protein: Using Current wt Protein Calculated 56g (1g/kg) Fluid: ml 1390-1668ml (1ml/kcal) Nutritional Problem 1. Problem Problem Altered nutrition related laboratory values related to Etiology DM aeb Signs/Symptoms: glucose 508 Intervention/Recommendation Comments 1. Continue with current diet order. Clarify "CCHO" as " [id number]." Avg PO intake is inadequate, meeting 83% lwoer end kcal needs. 2. Provide nutrition edu DM as able, pt was soundly asleep during visit. 3. Monitor glucose, adjust insulin, glucose 508. Expected Outcomes/Goals Expected Outcomes/Goals 1. PO intake continue to meet at least 75% of estimated nutritinoal needs.
[2017-05-31] MEDS: Ferrous Sulfate 325 MG TAB PO SCH (09:27)
[2017-05-31] MEDS: Fish Oil 1,000 MG SGL PO SCH (09:27)
--- NOTE | 2017-05-31 11:30 | Internal Medicine Prog Note ---
Internal Medicine Subjective - Subjective Service Date: 05/31/17 Patient is:: awake Per staff patient has:: no adverse event, tolerating meds Internal Medicine Objective - Results Result Diagrams: 05/16/17 07:30 Recent Labs: Laboratory Last Values Sodium 135 mEq/L (136-145) L 05/16/17 07:30 Potassium 3.5 mEq/L (3.5-5.1) 05/16/17 07:30 Chloride 104 mEq/L (98-107) 05/16/17 07:30 Carbon Dioxide 27.8 mEq/L (21.0-31.0) 05/16/17 07:30 Anion Gap 6.7 (7.0-16.0) L 05/16/17 07:30 BUN 13 mg/dL (7-25) 05/16/17 07:30 Creatinine 0.8 mg/dL (0.6-1.2) 05/16/17 07:30 Est GFR ( Amer) > 60.0 ml/min (>90) 05/16/17 07:30 Est GFR (Non-Af Amer) > 60.0 ml/min 05/16/17 07:30 BUN/Creatinine Ratio 16.3 05/16/17 07:30 Glucose 461 mg/dL (40-70) H* 05/26/17 12:20 POC Glucose 132 MG/DL (70 - 105) H 05/31/17 06:16 Calcium 8.2 mg/dL (8.6-10.3) L 05/16/17 07:30 Total Bilirubin 0.3 mg/dL (0.3-1.0) 05/16/17 07:30 AST 94 U/L (13-39) H 05/16/17 07:30 ALT 55 U/L (7-52) H 05/16/17 07:30 Alkaline Phosphatase 73 U/L (34-104) 05/16/17 07:30 Total Protein 4.7 gm/dL (6.0-8.3) L 05/16/17 07:30 Albumin 2.5 gm/dL (3.7-5.3) L 05/16/17 07:30 Globulin 2.2 gm/dL 05/16/17 07:30 Albumin/Globulin Ratio 1.1 (1.0-1.8) 05/16/17 07:30 - Physical Exam Vitals and I&O: Vital Signs Temp 97.9 F 05/31/17 06:41 Pulse 91 05/31/17 09:28 Resp 19 05/31/17 06:41 BP 161/88 05/31/17 09:28 Pulse Ox 97 05/31/17 06:41 Intake & Output 05/30/17 05/31/17 05/31/17 18:59 06:59 18:59 Intake Total 360 Balance 360 Intake: Oral 360 Other: # Voids 1 # Bowel Movements 0 Active Medications: Current Medications Acetaminophen (Tylenol) 650 mg PO Q4H PRN PRN Reason: Mild-Moderate Pain or T >101 Stop: 07/09/17 22:29 Last Admin: 05/29/17 20:53 Dose: 650 mg Acetaminophen (Tylenol Extra Strength) 500 mg PO Q4H PRN PRN Reason: Pain (Moderate) Stop: 07/09/17 22:30 Al Hydrox/Mg Hydrox/Simethicone (Maalox) 30 ml PO Q4HR PRN PRN Reason: GI DISTRESS Stop: 07/09/17 22:31 Aripiprazole (Abilify) 20 mg PO HS [facility] Stop: 07/26/17 20:59 Last Admin: 05/30/17 22:00 Dose: 20 mg Carvedilol (Coreg) 12.5 mg PO BID [facility] Stop: 07/10/17 08:59 Last Admin: 05/31/17 09:28 Dose: 12.5 mg Duloxetine HCl (Cymbalta) 60 mg PO DAILY [facility] PRN Reason: Protocol Stop: 07/10/17 08:59 Last Admin: 05/31/17 09:28 Dose: 60 mg Ergocalciferol (Vitamin D) 50,000 iu PO QWED [facility] Stop: 07/09/17 22:14 Last Admin: 05/18/17 16:55 Dose: Not Given Ferrous Sulfate (Iron) 325 mg PO DAILY [facility] Stop: 07/10/17 08:59 Last Admin: 05/31/17 09:27 Dose: 325 mg Fish Oil ([place] 3) 1,000 mg PO DAILY [facility] Stop: 07/10/17 08:59 Last Admin: 05/31/17 09:27 Dose: 1,000 mg Gabapentin (Neurontin) 800 mg PO Q8HR [facility] Stop: 07/10/17 04:59 Last Admin: 05/31/17 04:25 Dose: 800 mg Insulin Aspart (Novolog Insulin Sliding Scale) 0 units SUBQ ACHS [facility] PRN Reason: Protocol Stop: 07/10/17 16:29 Last Admin: 05/31/17 06:39 Dose: Not Given Insulin Detemir (Levemir Insulin) 20 units SUBQ Q12HR [facility] PRN Reason: Protocol Stop: 07/30/17 08:59 Last Admin: 05/31/17 09:28 Dose: 20 units Lorazepam (Ativan) 1 mg PO Q4HR PRN; Protocol PRN Reason: Anxiety Stop: 07/17/17 10:33 Last Admin: 05/30/17 08:58 Dose: 1 mg Magnesium Hydroxide (Milk Of Magnesia) 30 ml PO HS PRN PRN Reason: Constipation Stop: 07/09/17 22:15 Pantoprazole Sodium (Protonix) 40 mg PO QDAC [facility] Stop: 07/10/17 07:29 Last Admin: 05/31/17 06:45 Dose: Not Given Trazodone HCl (Desyrel) 100 mg PO HS [facility] PRN Reason: Protocol Stop: 07/10/17 20:59 Last Admin: 05/30/17 22:00 Dose: 100 mg General: alert HEENT: NC/AT, PERRLA Lungs: CTAB Cardiovascular: RRR, Normal S1, Normal S2 Abdomen: soft, non-tender, non-distended, positive bowel sound Neurological: no change Internal Medicine Assmt/Plan - Assessment Assessment: Diabetes (Acute) E11.9 Hypokalemia (Acute) E87.6 Hyponatremia (Acute) E87.1 h/o schizophrenia (Acute) history of psychotic disorder (Acute) history of severe depression (Acute) - Plan Plan: monitor electrolytes continue current plan of care safety precautions Nutritional Asmnt/Malnutr-PDOC - Dietary Evaluation Malnutrition Findings (Please click <Entered> for more info): Nutritional Asmnt/Malnutrition Start: 05/12/17 10: 51 Text: Status: Complete Freq: Document 05/12/17 10:51 GSUN (Rec: 05/12/17 11:17 GSUN [email or web address]) Nutritional Asmnt/Malnutrition Patient General Information Nutritional Screening Moderate Risk Diagnosis Schizoaffective disorder bipolar type with psychotic features Pertinent Medical Hx/Surgical Hx DM, HTN, esophageal reflux disease, severe hypokalemia, dementia Subjective Information 61 year old female, transfered from [facility]. Pt was soundly asleep during visit, lyric writer visited twice attempted to wake pt, unsuccessful. Limited physical assessment, no severe muslce fat wasting noted. Avg 67% of meals since adm, meeting 83% of lower end kcal needs. Per [facility] staff, pt was requesting for snacks and ice cream. Few teeth missing. Current Diet Order/ Nutrition Support Low sodium, CCHO Pertinent Medications Vitamin D, Iron, [place] 3, Novolog, Levemir, MOM, Remeron , Protonix Pertinent Labs 05/11: glucose 508H Nutritional Hx/Data Height 5 ft 6 in Height (Calculated Centimeters) 167.6 Current Weight (lbs) 122 lb 4.8 oz Weight (Calculated Kilograms) 55.5 Weight (Calculated Grams) 51293.3 [place] Body Weight 130 Weight Status Approriate GI Symptoms Food Allergies No Skin Integrity/Comment: Carols 20. Skin intact. Current %PO Fair (50-74%) Estimated Nutritional Goals BEE in Kcals: Using Current wt Calories/Kcals/Kg CBW 122.3lb/55.6kg Kcals Calculated 1390-1668kcal (25-30kcla/kg) Protein: Using Current wt Protein Calculated 56g (1g/kg) Fluid: ml 1390-1668ml (1ml/kcal) Nutritional Problem 1. Problem Problem Altered nutrition related laboratory values related to Etiology DM aeb Signs/Symptoms: glucose 508 Intervention/Recommendation Comments 1. Continue with current diet order. Clarify "CCHO" as " [id number]." Avg PO intake is inadequate, meeting 83% lwoer end kcal needs. 2. Provide nutrition edu DM as able, pt was soundly asleep during visit. 3. Monitor glucose, adjust insulin, glucose 508. Expected Outcomes/Goals Expected Outcomes/Goals 1. PO intake continue to meet at least 75% of estimated nutritinoal needs.
--- NOTE | 2017-05-31 11:30 | Internal Medicine Prog Note ---
Internal Medicine Subjective - Subjective Service Date: 05/31/17 Patient is:: awake Per staff patient has:: no adverse event, tolerating meds Internal Medicine Objective - Results Result Diagrams: 05/16/17 07:30 Recent Labs: Laboratory Last Values Sodium 135 mEq/L (136-145) L 05/16/17 07:30 Potassium 3.5 mEq/L (3.5-5.1) 05/16/17 07:30 Chloride 104 mEq/L (98-107) 05/16/17 07:30 Carbon Dioxide 27.8 mEq/L (21.0-31.0) 05/16/17 07:30 Anion Gap 6.7 (7.0-16.0) L 05/16/17 07:30 BUN 13 mg/dL (7-25) 05/16/17 07:30 Creatinine 0.8 mg/dL (0.6-1.2) 05/16/17 07:30 Est GFR ( Amer) > 60.0 ml/min (>90) 05/16/17 07:30 Est GFR (Non-Af Amer) > 60.0 ml/min 05/16/17 07:30 BUN/Creatinine Ratio 16.3 05/16/17 07:30 Glucose 461 mg/dL (40-70) H* 05/26/17 12:20 POC Glucose 132 MG/DL (70 - 105) H 05/31/17 06:16 Calcium 8.2 mg/dL (8.6-10.3) L 05/16/17 07:30 Total Bilirubin 0.3 mg/dL (0.3-1.0) 05/16/17 07:30 AST 94 U/L (13-39) H 05/16/17 07:30 ALT 55 U/L (7-52) H 05/16/17 07:30 Alkaline Phosphatase 73 U/L (34-104) 05/16/17 07:30 Total Protein 4.7 gm/dL (6.0-8.3) L 05/16/17 07:30 Albumin 2.5 gm/dL (3.7-5.3) L 05/16/17 07:30 Globulin 2.2 gm/dL 05/16/17 07:30 Albumin/Globulin Ratio 1.1 (1.0-1.8) 05/16/17 07:30 - Physical Exam Vitals and I&O: Vital Signs Temp 97.9 F 05/31/17 06:41 Pulse 91 05/31/17 09:28 Resp 19 05/31/17 06:41 BP 161/88 05/31/17 09:28 Pulse Ox 97 05/31/17 06:41 Intake & Output 05/30/17 05/31/17 05/31/17 18:59 06:59 18:59 Intake Total 360 Balance 360 Intake: Oral 360 Other: # Voids 1 # Bowel Movements 0 Active Medications: Current Medications Acetaminophen (Tylenol) 650 mg PO Q4H PRN PRN Reason: Mild-Moderate Pain or T >101 Stop: 07/09/17 22:29 Last Admin: 05/29/17 20:53 Dose: 650 mg Acetaminophen (Tylenol Extra Strength) 500 mg PO Q4H PRN PRN Reason: Pain (Moderate) Stop: 07/09/17 22:30 Al Hydrox/Mg Hydrox/Simethicone (Maalox) 30 ml PO Q4HR PRN PRN Reason: GI DISTRESS Stop: 07/09/17 22:31 Aripiprazole (Abilify) 20 mg PO HS [facility] Stop: 07/26/17 20:59 Last Admin: 05/30/17 22:00 Dose: 20 mg Carvedilol (Coreg) 12.5 mg PO BID [facility] Stop: 07/10/17 08:59 Last Admin: 05/31/17 09:28 Dose: 12.5 mg Duloxetine HCl (Cymbalta) 60 mg PO DAILY [facility] PRN Reason: Protocol Stop: 07/10/17 08:59 Last Admin: 05/31/17 09:28 Dose: 60 mg Ergocalciferol (Vitamin D) 50,000 iu PO QWED [facility] Stop: 07/09/17 22:14 Last Admin: 05/18/17 16:55 Dose: Not Given Ferrous Sulfate (Iron) 325 mg PO DAILY [facility] Stop: 07/10/17 08:59 Last Admin: 05/31/17 09:27 Dose: 325 mg Fish Oil ([place] 3) 1,000 mg PO DAILY [facility] Stop: 07/10/17 08:59 Last Admin: 05/31/17 09:27 Dose: 1,000 mg Gabapentin (Neurontin) 800 mg PO Q8HR [facility] Stop: 07/10/17 04:59 Last Admin: 05/31/17 04:25 Dose: 800 mg Insulin Aspart (Novolog Insulin Sliding Scale) 0 units SUBQ ACHS [facility] PRN Reason: Protocol Stop: 07/10/17 16:29 Last Admin: 05/31/17 06:39 Dose: Not Given Insulin Detemir (Levemir Insulin) 20 units SUBQ Q12HR [facility] PRN Reason: Protocol Stop: 07/30/17 08:59 Last Admin: 05/31/17 09:28 Dose: 20 units Lorazepam (Ativan) 1 mg PO Q4HR PRN; Protocol PRN Reason: Anxiety Stop: 07/17/17 10:33 Last Admin: 05/30/17 08:58 Dose: 1 mg Magnesium Hydroxide (Milk Of Magnesia) 30 ml PO HS PRN PRN Reason: Constipation Stop: 07/09/17 22:15 Pantoprazole Sodium (Protonix) 40 mg PO QDAC [facility] Stop: 07/10/17 07:29 Last Admin: 05/31/17 06:45 Dose: Not Given Trazodone HCl (Desyrel) 100 mg PO HS [facility] PRN Reason: Protocol Stop: 07/10/17 20:59 Last Admin: 05/30/17 22:00 Dose: 100 mg General: alert HEENT: NC/AT, PERRLA Lungs: CTAB Cardiovascular: RRR, Normal S1, Normal S2 Abdomen: soft, non-tender, non-distended, positive bowel sound Neurological: no change Internal Medicine Assmt/Plan - Assessment Assessment: Diabetes (Acute) E11.9 Hypokalemia (Acute) E87.6 Hyponatremia (Acute) E87.1 h/o schizophrenia (Acute) history of psychotic disorder (Acute) history of severe depression (Acute) - Plan Plan: monitor electrolytes continue current plan of care safety precautions Nutritional Asmnt/Malnutr-PDOC - Dietary Evaluation Malnutrition Findings (Please click <Entered> for more info): Nutritional Asmnt/Malnutrition Start: 05/12/17 10: 51 Text: Status: Complete Freq: Document 05/12/17 10:51 GSUN (Rec: 05/12/17 11:17 GSUN [email or web address]) Nutritional Asmnt/Malnutrition Patient General Information Nutritional Screening Moderate Risk Diagnosis Schizoaffective disorder bipolar type with psychotic features Pertinent Medical Hx/Surgical Hx DM, HTN, esophageal reflux disease, severe hypokalemia, dementia Subjective Information 61 year old female, transfered from [facility]. Pt was soundly asleep during visit, physician underwriter visited twice attempted to wake pt, unsuccessful. Limited physical assessment, no severe muslce fat wasting noted. Avg 67% of meals since adm, meeting 83% of lower end kcal needs. Per [facility] staff, pt was requesting for snacks and ice cream. Few teeth missing. Current Diet Order/ Nutrition Support Low sodium, CCHO Pertinent Medications Vitamin D, Iron, [place] 3, Novolog, Levemir, MOM, Remeron , Protonix Pertinent Labs 05/11: glucose 508H Nutritional Hx/Data Height 5 ft 6 in Height (Calculated Centimeters) 167.6 Current Weight (lbs) 122 lb 4.8 oz Weight (Calculated Kilograms) 55.5 Weight (Calculated Grams) 37687.3 [place] Body Weight 130 Weight Status Approriate GI Symptoms Food Allergies No Skin Integrity/Comment: [place] 20. Skin intact. Current %PO Fair (50-74%) Estimated Nutritional Goals BEE in Kcals: Using Current wt Calories/Kcals/Kg CBW 122.3lb/55.6kg Kcals Calculated 1390-1668kcal (25-30kcla/kg) Protein: Using Current wt Protein Calculated 56g (1g/kg) Fluid: ml 1390-1668ml (1ml/kcal) Nutritional Problem 1. Problem Problem Altered nutrition related laboratory values related to Etiology DM aeb Signs/Symptoms: glucose 508 Intervention/Recommendation Comments 1. Continue with current diet order. Clarify "CCHO" as " [id number]." Avg PO intake is inadequate, meeting 83% lwoer end kcal needs. 2. Provide nutrition edu DM as able, pt was soundly asleep during visit. 3. Monitor glucose, adjust insulin, glucose 508. Expected Outcomes/Goals Expected Outcomes/Goals 1. PO intake continue to meet at least 75% of estimated nutritinoal needs.
--- NOTE | 2017-05-31 11:30 | Internal Medicine Prog Note ---
Internal Medicine Subjective - Subjective Service Date: 05/31/17 Patient is:: awake Per staff patient has:: no adverse event, tolerating meds Internal Medicine Objective - Results Result Diagrams: 05/16/17 07:30 Recent Labs: Laboratory Last Values Sodium 135 mEq/L (136-145) L 05/16/17 07:30 Potassium 3.5 mEq/L (3.5-5.1) 05/16/17 07:30 Chloride 104 mEq/L (98-107) 05/16/17 07:30 Carbon Dioxide 27.8 mEq/L (21.0-31.0) 05/16/17 07:30 Anion Gap 6.7 (7.0-16.0) L 05/16/17 07:30 BUN 13 mg/dL (7-25) 05/16/17 07:30 Creatinine 0.8 mg/dL (0.6-1.2) 05/16/17 07:30 Est GFR ( Amer) > 60.0 ml/min (>90) 05/16/17 07:30 Est GFR (Non-Af Amer) > 60.0 ml/min 05/16/17 07:30 BUN/Creatinine Ratio 16.3 05/16/17 07:30 Glucose 461 mg/dL (40-70) H* 05/26/17 12:20 POC Glucose 132 MG/DL (70 - 105) H 05/31/17 06:16 Calcium 8.2 mg/dL (8.6-10.3) L 05/16/17 07:30 Total Bilirubin 0.3 mg/dL (0.3-1.0) 05/16/17 07:30 AST 94 U/L (13-39) H 05/16/17 07:30 ALT 55 U/L (7-52) H 05/16/17 07:30 Alkaline Phosphatase 73 U/L (34-104) 05/16/17 07:30 Total Protein 4.7 gm/dL (6.0-8.3) L 05/16/17 07:30 Albumin 2.5 gm/dL (3.7-5.3) L 05/16/17 07:30 Globulin 2.2 gm/dL 05/16/17 07:30 Albumin/Globulin Ratio 1.1 (1.0-1.8) 05/16/17 07:30 - Physical Exam Vitals and I&O: Vital Signs Temp 97.9 F 05/31/17 06:41 Pulse 91 05/31/17 09:28 Resp 19 05/31/17 06:41 BP 161/88 05/31/17 09:28 Pulse Ox 97 05/31/17 06:41 Intake & Output 05/30/17 05/31/17 05/31/17 18:59 06:59 18:59 Intake Total 360 Balance 360 Intake: Oral 360 Other: # Voids 1 # Bowel Movements 0 Active Medications: Current Medications Acetaminophen (Tylenol) 650 mg PO Q4H PRN PRN Reason: Mild-Moderate Pain or T >101 Stop: 07/09/17 22:29 Last Admin: 05/29/17 20:53 Dose: 650 mg Acetaminophen (Tylenol Extra Strength) 500 mg PO Q4H PRN PRN Reason: Pain (Moderate) Stop: 07/09/17 22:30 Al Hydrox/Mg Hydrox/Simethicone (Maalox) 30 ml PO Q4HR PRN PRN Reason: GI DISTRESS Stop: 07/09/17 22:31 Aripiprazole (Abilify) 20 mg PO HS [facility] Stop: 07/26/17 20:59 Last Admin: 05/30/17 22:00 Dose: 20 mg Carvedilol (Coreg) 12.5 mg PO BID [facility] Stop: 07/10/17 08:59 Last Admin: 05/31/17 09:28 Dose: 12.5 mg Duloxetine HCl (Cymbalta) 60 mg PO DAILY [facility] PRN Reason: Protocol Stop: 07/10/17 08:59 Last Admin: 05/31/17 09:28 Dose: 60 mg Ergocalciferol (Vitamin D) 50,000 iu PO QWED [facility] Stop: 07/09/17 22:14 Last Admin: 05/18/17 16:55 Dose: Not Given Ferrous Sulfate (Iron) 325 mg PO DAILY [facility] Stop: 07/10/17 08:59 Last Admin: 05/31/17 09:27 Dose: 325 mg Fish Oil ([place] 3) 1,000 mg PO DAILY [facility] Stop: 07/10/17 08:59 Last Admin: 05/31/17 09:27 Dose: 1,000 mg Gabapentin (Neurontin) 800 mg PO Q8HR [facility] Stop: 07/10/17 04:59 Last Admin: 05/31/17 04:25 Dose: 800 mg Insulin Aspart (Novolog Insulin Sliding Scale) 0 units SUBQ ACHS [facility] PRN Reason: Protocol Stop: 07/10/17 16:29 Last Admin: 05/31/17 06:39 Dose: Not Given Insulin Detemir (Levemir Insulin) 20 units SUBQ Q12HR [facility] PRN Reason: Protocol Stop: 07/30/17 08:59 Last Admin: 05/31/17 09:28 Dose: 20 units Lorazepam (Ativan) 1 mg PO Q4HR PRN; Protocol PRN Reason: Anxiety Stop: 07/17/17 10:33 Last Admin: 05/30/17 08:58 Dose: 1 mg Magnesium Hydroxide (Milk Of Magnesia) 30 ml PO HS PRN PRN Reason: Constipation Stop: 07/09/17 22:15 Pantoprazole Sodium (Protonix) 40 mg PO QDAC [facility] Stop: 07/10/17 07:29 Last Admin: 05/31/17 06:45 Dose: Not Given Trazodone HCl (Desyrel) 100 mg PO HS [facility] PRN Reason: Protocol Stop: 07/10/17 20:59 Last Admin: 05/30/17 22:00 Dose: 100 mg General: alert HEENT: NC/AT, PERRLA Lungs: CTAB Cardiovascular: RRR, Normal S1, Normal S2 Abdomen: soft, non-tender, non-distended, positive bowel sound Neurological: no change Internal Medicine Assmt/Plan - Assessment Assessment: Diabetes (Acute) E11.9 Hypokalemia (Acute) E87.6 Hyponatremia (Acute) E87.1 h/o schizophrenia (Acute) history of psychotic disorder (Acute) history of severe depression (Acute) - Plan Plan: monitor electrolytes continue current plan of care safety precautions Nutritional Asmnt/Malnutr-PDOC - Dietary Evaluation Malnutrition Findings (Please click <Entered> for more info): Nutritional Asmnt/Malnutrition Start: 05/12/17 10: 51 Text: Status: Complete Freq: Document 05/12/17 10:51 GSUN (Rec: 05/12/17 11:17 GSUN [email or web address]) Nutritional Asmnt/Malnutrition Patient General Information Nutritional Screening Moderate Risk Diagnosis Schizoaffective disorder bipolar type with psychotic features Pertinent Medical Hx/Surgical Hx DM, HTN, esophageal reflux disease, severe hypokalemia, dementia Subjective Information 61 year old female, transfered from [facility]. Pt was soundly asleep during visit, documentation writer visited twice attempted to wake pt, unsuccessful. Limited physical assessment, no severe muslce fat wasting noted. Avg 67% of meals since adm, meeting 83% of lower end kcal needs. Per [facility] staff, pt was requesting for snacks and ice cream. Few teeth missing. Current Diet Order/ Nutrition Support Low sodium, CCHO Pertinent Medications Vitamin D, Iron, [place] 3, Novolog, Levemir, MOM, Remeron , Protonix Pertinent Labs 05/11: glucose 508H Nutritional Hx/Data Height 5 ft 6 in Height (Calculated Centimeters) 167.6 Current Weight (lbs) 122 lb 4.8 oz Weight (Calculated Kilograms) 55.5 Weight (Calculated Grams) 52351.3 [place] Body Weight 130 Weight Status Approriate GI Symptoms Food Allergies No Skin Integrity/Comment: [place] 20. Skin intact. Current %PO Fair (50-74%) Estimated Nutritional Goals BEE in Kcals: Using Current wt Calories/Kcals/Kg CBW 122.3lb/55.6kg Kcals Calculated 1390-1668kcal (25-30kcla/kg) Protein: Using Current wt Protein Calculated 56g (1g/kg) Fluid: ml 1390-1668ml (1ml/kcal) Nutritional Problem 1. Problem Problem Altered nutrition related laboratory values related to Etiology DM aeb Signs/Symptoms: glucose 508 Intervention/Recommendation Comments 1. Continue with current diet order. Clarify "CCHO" as " [id number]." Avg PO intake is inadequate, meeting 83% lwoer end kcal needs. 2. Provide nutrition edu DM as able, pt was soundly asleep during visit. 3. Monitor glucose, adjust insulin, glucose 508. Expected Outcomes/Goals Expected Outcomes/Goals 1. PO intake continue to meet at least 75% of estimated nutritinoal needs.
--- NOTE | 2017-05-31 17:24 | Discharge Summary ---
DATE OF DISCHARGE: 05/31/2017 PSYCHIATRIC DISCHARGE SUMMARY AGE: 61. SEX: Female. PHYSICIAN: Beba Crawford MD, MPH. FINAL DIAGNOSIS/PRIMARY DIAGNOSIS: Unspecified psychosis. SECONDARY DIAGNOSES: Dementia, moderate, with psychotic features. REASON FOR HOSPITALIZATION: The patient was admitted to the hospital because of increased agitation, irritability, and aggressive behavior. HOSPITAL COURSE: The patient continued to be agitated and in irritable mood. The patient also was having difficulty following any of the directions. The patient was started on Abilify and the dose adjusted to 20 mg everyday; and she was given Cymbalta in dose of 60 mg everyday. The patient was having difficulty sleeping at night and she was given trazodone in dose of 100 mg at bedtime, that helps the patient sleep slightly better. She was still having episodes of irritability and anger. Placement was an issue and finally [facility] accepted the patient. Physical exam of the patient showed no major behavioral problems. DISCHARGE PLANS: The patient was discharged from the hospital to [place], was planned to be followed there. EXPECTED OUTCOME AFTER DISCHARGE: Fair after the patient continue to take her psych medications and follow up with her treatment plans. JOB# [id number]
--- NOTE | 2017-05-31 17:24 | Discharge Summary ---
DATE OF DISCHARGE: 05/31/2017 PSYCHIATRIC DISCHARGE SUMMARY AGE: 61. SEX: Female. PHYSICIAN: Beba Crawford MD, MPH. FINAL DIAGNOSIS/PRIMARY DIAGNOSIS: Unspecified psychosis. SECONDARY DIAGNOSES: Dementia, moderate, with psychotic features. REASON FOR HOSPITALIZATION: The patient was admitted to the hospital because of increased agitation, irritability, and aggressive behavior. HOSPITAL COURSE: The patient continued to be agitated and in irritable mood. The patient also was having difficulty following any of the directions. The patient was started on Abilify and the dose adjusted to 20 mg everyday; and she was given Cymbalta in dose of 60 mg everyday. The patient was having difficulty sleeping at night and she was given trazodone in dose of 100 mg at bedtime, that helps the patient sleep slightly better. She was still having episodes of irritability and anger. Placement was an issue and finally [facility] accepted the patient. Physical exam of the patient showed no major behavioral problems. DISCHARGE PLANS: The patient was discharged from the hospital to [place], was planned to be followed there. EXPECTED OUTCOME AFTER DISCHARGE: Fair after the patient continue to take her psych medications and follow up with her treatment plans. JOB# [id number]
== END 2017-05-31 14:00 | DRG 885 ==
LOC: GERO 17:50
PROVIDERS: ADMIT Psychiatry & Neurology Psychiatry; ATTEND Psychiatry & Neurology Psychiatry
DX: F25.0 Schizoaffective disorder, bipolar type (principal); F03.90 Unspecified dementia, unspecified severity, without behavioral disturbance, psychotic disturbance, mood disturbance, and anxiety; E87.1 Hypo-osmolality and hyponatremia; E11.9 Type 2 diabetes mellitus without complications; I10 Essential (primary) hypertension; K21.9 Gastro-esophageal reflux disease without esophagitis; F29 Unspecified psychosis not due to a substance or known physiological condition; E86.0 Dehydration; E87.6 Hypokalemia
CPT/HCPCS: 36415-UA; 80053-TC; 82947-TC; 82948-90; 90899; J1815; Z7610

== ENCOUNTER 2017-08-05 15:46 | Inpatient (IN) | payer MEDICARE ==
--- NOTE | 2017-08-05 16:10 | ED Physician Chart ---
ED Chief Complaint/HPI - Patient Information Date Seen:: 08/05/17 Time Seen:: 16:05 Chief Complaint:: Weakness and confusion History of Present Illness:: 61 yo female was brought from to ER for evaluation of generalized weakness and increased confusion. Allergies:: Allergies Allergy/AdvReac Type Severity Reaction Status Date / Time No Known Allergies Allergy Verified 03/07/17 21:52 Vitals:: Vital Signs - 8 hr 08/05/17 15:53 Temp 97.9 F HR 60 RR 16 BP 147/89 O2 Sat % 99 ED Review of Systems - Review of Systems General/Constitutional: No fever, No chills, Weakness Skin: No skin lesions Head: No headache Eyes: No loss of vision ENT: No nasal drainage Neck: No neck pain Cardio Vascular: No chest pain Pulmonary: No SOB GI: No nausea, No vomiting Musculoskeletal: No bone or joint pain Psychiatric: Prior psych history ED Past Medical History - Past Medical History Past Medical History: HTN, DM, PUD/GERD, Dementia Social History: Non Smoker, No Alcohol, No Drug Use Surgical History: Pacemaker, other (T-spine surgery) Psychiatricy History: Other (Anxiety, schizoaffective disorder) Family Medical History - Family Member Mother History Unknown: Yes Ethnicity: Unknown Living Status: Unknown ED Physical Exam - Physical Examination General/Constitutional: Awake, Alert Head: Atraumatic Eyes: PERRL Skin: No ecchymosis ENMT: Nasal exam nl Neck: No nuchal rigidity Respiratory: Clear to Auscultation, No Wheeze/Rhonchi/Rales Cardio Vascular: RRR, No murmur, gallop, rubs, NL S1 S2 GI: No tenderness/rebounding/guarding Extremities: normal strength in all extremities Other Neuro/Psych comments:: Oriented to self only ED Labs/Radiology/EKG Results - EKG Interpretations Rate & Rhythm: Sinus rhythm ED Assessment - Assessment General Assessment: UTI Dehydration Schizoaffective disorder Dementia Assessment/Comments:: Rocephin 1g IV NS 1L IV bolus ED Septic Shock - . Is Septic Shock (SBP<90, OR Lactate>4 mmol\L) present?: No - <6hrs of presentation: Vital Signs: Vital Signs - 8 hr 08/05/17 15:53 Temp 97.9 F HR 60 RR 16 BP 147/89 O2 Sat % 99 ED Reassessment (Disposition) - Reassessment Reassessment Condition:: Unchanged - Patient Disposition Discharge/Transfer:: Acute Care w/in this hosp Admitting Medical Physician:: Robina Stroud
[2017-08-05 16:23] LABS: % BASOPHILS 0.9 % (0.0-2.0); % EOSINOPHILS 6.5 % (0.0-5.0); % LYMPHOCYTES 27.2 % (20.0-50.0); % MONOCYTES 7.6 % (2.0-10.0); % NEUTROPHILS 57.8 % (40.0-80.0); EOSINOPHILE ABSOLUTE 0.3 Th/cmm (0.1-0.4); HEMOGLOBIN 12.4 gm/dL (12-16); LYMPHOCYTE ABSOLUTE 1.1 Th/cmm (1.5-3.0); MEAN CORPUSCULAR HEMOGLOBIN 29.5 pg (27.0-31.0); MEAN CORPUSCULAR HGB CONC 33.9 pg (28.0-36.0); MEAN PLATELET VOLUME 7.5 fl; MONOCYTE ABSOLUTE 0.3 Th/cmm (0.3-1.0); NEUTROPHILE ABSOLUTE 2.5 Th/cmm (1.8-8.0); RED CELL DISTRIBUTION WIDTH 12.4 % (11.5-20.0); WHITE BLOOD COUNT 4.2 Th/cmm (4.8-10.8)
[2017-08-05 16:25] LABS: HEMATOCRIT 36.5 % (41.0-60); PLATELET COUNT 125 Th/cmm (150-400)
[2017-08-05 16:38] LABS: ALB/GLOB RATIO 1.4 (1.0-1.8); ALBUMIN 4.2 gm/dL (3.7-5.3); ALKALINE PHOSPHATASE 112 U/L (34-104); ANION GAP 9.9 (7.0-16.0); BILIRUBIN,TOTAL 0.3 mg/dL (0.3-1.0); BUN - UREA NITROGEN 25 mg/dL (7-25); CALCIUM SERUM 9.5 mg/dL (8.6-10.3); CARBON DIOXIDE 32.3 mEq/L (21.0-31.0); CHLORIDE 98 mEq/L (98-107); GFR AFRICAN-AMERICAN > 60.0 ml/min (>90); GFR NON AFRICAN-AMERICAN 59.5 ml/min; GLUCOSE 68 mg/dL (70-105); POTASSIUM SERUM 4.2 mEq/L (3.5-5.1); SGOT 24 U/L (13-39); SGPT/ALT 18 U/L (7-52); SODIUM SERUM 136 mEq/L (136-145); TOTAL PROTEIN,SERUM 7.3 gm/dL (6.0-8.3)
[2017-08-05 19:44] LABS: URINE MICROSCOPIC INDICATED? YES; URINE SOURCE RANDOM
[2017-08-05 19:51] LABS: URINE BILIRUBIN NEGATIVE (NEGATIVE); URINE BLOOD NEGATIVE (NEGATIVE); URINE GLUCOSE (UA) NEGATIVE (NEGATIVE); URINE KETONE NEGATIVE (NEGATIVE); URINE LEUKOCYTE ESTERASE SMALL (NEGATIVE); URINE NITRATE POSITIVE (NEGATIVE); URINE PH 6.5 (4.6 - 8.0); URINE PROTEIN NEGATIVE (NEGATIVE); URINE UROBILINOGEN 0.2 E.U./dL (0.2 - 1.0)
[2017-08-05] MEDS ORDERED: Sodium Chloride 0.9% 1,000 ML IV ONE (20:15)
[2017-08-05 20:26] LABS: URINE CLARITY CLEAR (CLEAR); URINE COLOR YELLOW
[2017-08-05 20:28] LABS: URINE RBC NONE SEEN /hpf (0-5)
[2017-08-05] MEDS ORDERED: cefTRIAXone 1 GM in Sodium Chloride 0.9% 50 ML IV ONE (20:28)
[2017-08-05 20:31] LABS: URINE BACTERIA MODERATE /hpf (NONE SEEN); URINE EPITHELIAL CELLS NONE SEEN /lpf (FEW); URINE WBC 25-50 /hpf (0-5)
[2017-08-05] MEDS: Sodium Chloride 0.9% 1,000 ML IV SCH (22:00)
[2017-08-05] MEDS ORDERED: Maalox 30 mL Cup PO PRN (23:59)
[2017-08-05] MEDS ORDERED: Magnesium Hydroxide (MOM) 30 mL UDC PO PRN (23:59)
[2017-08-05] MEDS ORDERED: Acetaminophen 500 MG TAB PO PRN (23:59)
[2017-08-06 01:51] VITALS: BP 128/66
[2017-08-06] MEDS: Sodium Chloride 0.9% 1,000 ML IV SCH ×2 (06:00→20:53)
[2017-08-06 06:36] LABS: ANION GAP 12.1 (7.0-16.0); BUN - UREA NITROGEN 23 mg/dL (7-25); CALCIUM SERUM 8.6 mg/dL (8.6-10.3); CARBON DIOXIDE 25.1 mEq/L (21.0-31.0); CHLORIDE 101 mEq/L (98-107); CHOLESTEROL 152 mg/dL (<200); CREATININE - SERUM 0.9 mg/dL (0.6-1.2); GFR AFRICAN-AMERICAN > 60.0 ml/min (>90); GFR NON AFRICAN-AMERICAN > 60.0 ml/min; HDL -HIGH DENSITY LIPOPROTEIN 69 mg/dL (23-92); POTASSIUM SERUM 4.2 mEq/L (3.5-5.1); SODIUM SERUM 134 mEq/L (136-145); TRIGLYCERIDES 112 mg/dL (<150)
[2017-08-06 06:43] LABS: GLUCOSE 232 mg/dL (70-105)
[2017-08-06 06:49] LABS: % BASOPHILS 0.3 % (0.0-2.0); % EOSINOPHILS 1.4 % (0.0-5.0); % LYMPHOCYTES 7.5 % (20.0-50.0); % MONOCYTES 9.1 % (2.0-10.0); % NEUTROPHILS 81.7 % (40.0-80.0); EOSINOPHILE ABSOLUTE 0.1 Th/cmm (0.1-0.4); HEMATOCRIT 36.8 % (41.0-60); HEMOGLOBIN 12.5 gm/dL (12-16); LYMPHOCYTE ABSOLUTE 0.7 Th/cmm (1.5-3.0); MEAN CELL VOLUME 88.2 fl (81-100); MEAN CORPUSCULAR HEMOGLOBIN 29.9 pg (27.0-31.0); MEAN CORPUSCULAR HGB CONC 33.9 pg (28.0-36.0); MEAN PLATELET VOLUME 7.4 fl; MONOCYTE ABSOLUTE 0.8 Th/cmm (0.3-1.0); NEUTROPHILE ABSOLUTE 7.5 Th/cmm (1.8-8.0); RED BLOOD COUNT 4.18 Mil/cmm (3.80-5.10); RED CELL DISTRIBUTION WIDTH 12.6 % (11.5-20.0)
[2017-08-06] MEDS: Pantoprazole 40 mg EC Tab PO SCH (06:59)
[2017-08-06] MEDS: INSULIN ASPART SLIDING SCALE 100 UNITS/ML UNIT SUBQ SCH ×4 (07:02→20:55)
[2017-08-06 07:04] LABS: WHITE BLOOD COUNT 9.1 Th/cmm (4.8-10.8)
[2017-08-06 07:05] LABS: PLATELET COUNT 96 Th/cmm (150-400)
[2017-08-06] MEDS: Insulin Detemir 100 units/mL 10mL Vial SUBQ SCH ×2 (09:39→20:59)
[2017-08-06] MEDS: Fish Oil 1,000 MG SGL PO SCH (09:41)
[2017-08-06] MEDS: Ferrous Sulfate 325 MG TAB PO SCH (09:42)
--- NOTE | 2017-08-06 09:50 | Diagnostic Imaging Report ---
Portable chest x-ray HISTORY: Shortness of breath The overall heart size is difficult to assess with portable technique in a poor inspiration. Electrode lead wires project over the repeat atrium and right ventricle. Surgical changes seen in the thoracic spine. Allowing for a poor inspiration, no acute focal pulmonary processes are seen. IMPRESSION: 1. Allowing for a poor inspiration, no acute focal pulmonary processes
[2017-08-06 12:30] LABS: A1C % 9.1 % (4.0-6.0)
--- NOTE | 2017-08-06 14:58 | History & Physical ---
ADMIT DATE: 08/05/2017 CHIEF COMPLAINT: Confusion and weakness. HISTORY OF PRESENT ILLNESS: This is a 61-year-old female who was admitted from the assisted facility to the Emergency Room due to increased confusion and generalized weakness. REVIEW OF SYSTEMS: GENERAL: This is a 61-year-old female that appears as stated. No fever, no chills noted. HEENT: No headache. No dizziness. EYES: No blurring of vision. No eye pain. NECK: No neck pain. No nuchal rigidity. CARDIOVASCULAR: No chest pain. No palpitation. PULMONARY: No coughing. No shortness of breath. GASTROINTESTINAL: No nausea, no vomiting, no abdominal pain. MUSCULOSKELETAL: No joint pain. No muscle pain. SOCIAL HISTORY: The patient lives in a assisted facility prior to hospitalization. PAST SURGICAL HISTORY: Unremarkable. PSYCHIATRIC HISTORY: Includes anxiety, schizoaffective disorder. PAST MEDICAL HISTORY: Includes hypertension, diabetes, and gastroesophageal reflux disease. FAMILY HISTORY: Unremarkable. PHYSICAL EXAMINATION: VITAL SIGNS: Temperature 96.7, heart rate 71, blood pressure is 117/71, respirations of 18, and saturation of 99% on room air. HEENT: Head is atraumatic, normocephalic. Eyes: Bilateral conjunctivae are clear. Bilateral pupils are equally round and reactive. NECK: Supple. No JVD. CARDIOVASCULAR: S1 and S2, without murmur. LUNGS: Clear to auscultation. GASTROINTESTINAL: Soft and nontender without guarding. Positive bowel sounds. MUSCULOSKELETAL: No clubbing, no cyanosis noted. ASSESSMENT: 1. Urinary tract infection. 2. Dehydration. 3. Dementia. 4. Schizoaffective disorder. 5. Osteoarthritis. 6. Hypertension. 7. Vitamin D deficiency. 8. Iron-deficiency anemia. 9. Diabetes mellitus. PLAN: We will admit the patient inpatient. We will continue IV antibiotics and we will wait for the culture results. We will consult with ID doctor for antibiotic management and also get a psychiatric consult to monitor the patient's behavior. We will also to monitor the patient's nutritional status. Treatment plans were discussed with the patient's nurse. Treatment plans were discussed with the patient. JOB# [id number]
[2017-08-06] MEDS ORDERED: Probiotic Screen MC PRN (15:15)
[2017-08-06] MEDS ORDERED: VTE Chemical Prophylaxis Screen/Admission MC PRN (17:12)
--- NOTE | 2017-08-06 17:22 | Consultation ---
Consult Note - Consult Note Service Date: 08/06/17 Referring Physician: Robina Stroud Consult Note: PHYSICIAN Consultation Note: Date of Admission: 08/05/17 Purpose of Consultation: Chief Complaint: generalized weakness and increased confusion. History of Present Illness: 61 yo female was brought from SNF to ER for evaluation of generalized weakness and increased confusion. On further evaluation, her urinalysis suggested UTI. ID consult was called for antibiotic management. She is receiving Rocephin. Past Medical History: Allergies Allergy/AdvReac Type Severity Reaction Status Date / Time No Known Allergies Allergy Verified 03/07/17 21:52 Vital Signs Temp 98.6 F 08/06/17 16:00 Pulse 72 08/06/17 16:00 Resp 18 08/06/17 16:00 BP 92/48 08/06/17 16:00 Pulse Ox 98 08/06/17 16:00 Intake & Output 08/05/17 08/06/17 08/06/17 18:59 06:59 18:59 Intake Total 1000 Balance 1000 Weight (lbs) 54.431 kg Intake: Intake, IV Amount 1000 Sodium Chloride 0.9% 1, 1000 000 ml @ 125 mls/hr IV . Q8H [facility] Rx#:[id number] Laboratory Results - last 24 hr 08/06/17 08/06/17 08/06/17 06:00 06:00 06:30 WBC 9.1 D RBC 4.18 Hgb 12.5 Hct 36.8 L MCV 88.2 MCH 29.9 MCHC Differential 33.9 RDW 12.6 Plt Count 96 L D MPV 7.4 Neutrophils % 81.7 H Lymphocytes % 7.5 L Monocytes % 9.1 Eosinophils % 1.4 Basophils % 0.3 Sodium 134 L Potassium 4.2 Chloride 101 Carbon Dioxide 25.1 Anion Gap 12.1 BUN 23 Creatinine 0.9 Est GFR ( Amer) > 60.0 Est GFR (Non-Af Amer) > 60.0 BUN/Creatinine Ratio 25.6 Glucose 232 H D Hemoglobin A1c % 9.1 H Calcium 8.6 Triglycerides 112 Cholesterol 152 LDL Cholesterol Direct 64 L HDL Cholesterol 69 Home Medication Medication Instructions Recorded Type Acetaminophen [Tylenol Extra 500 mg PO Q4H PRN tab 05/31/17 Rx Strength] Acetaminophen [Tylenol] 650 mg PO Q4H PRN tab 05/31/17 Rx Al Hyd/Mg Hyd/Simethicone [Maalox] 30 ml PO Q4HR PRN udc 05/31/17 Rx Carvedilol [Coreg] 12.5 mg PO BID tab 05/31/17 Rx Ergocalciferol [Vitamin D] 50,000 iu PO QWED sgl 05/31/17 Rx Ferrous Sulfate [Iron] 325 mg PO DAILY tab 05/31/17 Rx Fish Oil [[place] 3] 1,000 mg PO DAILY sgl 05/31/17 Rx Gabapentin [Neurontin] 800 mg PO Q8HR cap 05/31/17 Rx Insulin Aspart Sliding Scale See Protocol SUBQ ACHS unit 05/31/17 Rx [NovoLOG INSULIN SLIDING SCALE] Insulin Detemir [Levemir Insulin] 20 units SUBQ Q12HR vial 05/31/17 Rx Lorazepam [Ativan] 1 mg PO Q4HR PRN tab 05/31/17 Rx Magnesium Hydroxide [Milk of 30 ml PO HS PRN udc 05/31/17 Rx Magnesia] Pantoprazole [Protonix] 40 mg PO QDAC ect 05/31/17 Rx traZODone HCl [Desyrel*] 100 mg PO HS tab 05/31/[address] [Cymbalta] 30 mg PO DAILY 08/05/17 History aripIPRAZOLE [Abilify] 30 mg PO HS 08/05/17 History Current Medications Generic Name Dose Route Start Last Admin Trade Name Freq PRN Reason Stop Dose Admin Acetaminophen 650 mg 08/05/17 23:59 Tylenol PO 10/04/17 23:58 Q4H PRN Mild-Moderate Pain or T >101 Acetaminophen 500 mg 08/05/17 23:59 Tylenol Extra Strength PO 10/04/17 23:58 Q4H PRN Pain (Moderate) Al Hydrox/Mg Hydrox/Simethicone 30 ml 08/05/17 23:59 Maalox PO 10/04/17 23:58 Q4HR PRN GI DISTRESS Aripiprazole 30 mg 08/06/17 21:00 Abilify PO 10/05/17 20:59 HS [facility] Carvedilol 12.5 mg 08/06/17 09:00 08/06/17 09:42 Coreg PO 10/05/17 08:59 12.5 mg BID [facility] Administration Duloxetine HCl 30 mg 08/06/17 09:00 08/06/17 09:43 Cymbalta PO 10/05/17 08:59 Not Given DAILY [facility] Protocol Ergocalciferol 50,000 iu 08/10/17 09:00 Vitamin D PO 10/09/17 08:59 QWED [facility] Ferrous Sulfate 325 mg 08/06/17 09:00 08/06/17 09:42 Iron PO 10/05/17 08:59 325 mg DAILY [facility] Administration Fish Oil 1,000 mg 08/06/17 09:00 08/06/17 09:41 [place] 3 PO 10/05/17 08:59 1,000 mg DAILY [facility] Administration Gabapentin 800 mg 08/06/17 05:00 08/06/17 13:25 Neurontin PO 10/05/17 04:59 800 mg Q8HR [facility] Administration Ceftriaxone Sodium 1 gm/ 50 mls @ 100 mls/hr 08/06/17 21:00 Sodium Chloride IV 10/05/17 20:59 Q24HR [facility] Sodium Chloride 1,000 mls @ 125 mls/hr 08/05/17 20:45 08/06/17 06:00 Nacl 0.9% IV 10/04/17 20:44 125 mls/hr .Q8H [facility] Administration Insulin Aspart 0 units 08/06/17 07:30 08/06/17 13:26 Novolog Insulin Sliding Scale SUBQ 10/05/17 07:29 4 units ACHS [facility] Administration Protocol Insulin Detemir 20 units 08/06/17 09:00 08/06/17 09:39 Levemir Insulin SUBQ 10/05/17 08:59 20 units Q12HR [facility] Administration Protocol Lactobacillus Rhamnosus 1 each 08/07/17 09:00 Culturelle 15b PO 10/06/17 08:59 DAILY [facility] Lorazepam 1 mg 08/05/17 23:59 Ativan PO 10/04/17 23:58 Q4HR PRN Anxiety Protocol Magnesium Hydroxide 30 ml 08/05/17 23:59 Milk Of Magnesia PO 10/04/17 23:58 HS PRN Constipation Miscellaneous 1 ea 08/06/17 15:15 Probiotic Screen 10/05/17 15:14 PRN PRN PROTOCOL Miscellaneous 1 ea 08/06/17 17:12 Vte Chemical Prophylaxis Screen/ Admission 10/05/17 17:11 PRN PRN PROTOCOL Pantoprazole Sodium 40 mg 08/06/17 07:30 08/06/17 06:59 Protonix PO 10/05/17 07:29 40 mg QDAC [facility] Administration Trazodone HCl 100 mg 08/06/17 21:00 Desyrel PO 10/05/17 20:59 HS [facility] Protocol Review of Systems: A 12 point ROS was reviewed with the pertinent positive and negatives noted in the HPI. Social History Smoking Status Never smoker Drug Use No Alcohol Use No Family Medical History Family Medical History Start: 08/05/17 22: 14 Freq: ONCE Status: Active Document 08/05/17 22:14 FRANCO (Rec: 08/06/17 01:41 TDELI [id number]) Family Medical History Mother History Unknown Yes Physical Exam: General: Conmdfortable, not in any acute distress. HEENT: Head is normocephalic, atraumatic. oral cavity is moist, pink tongue. Eyes pallor is present. Neck: Supple, no JVD, no Carotid bruit. Cardio: S1 and S2 WNL. Respiratory: vesicular breath sound, decreased, crackles present. Abdominal: Soft, tender, BS present. Genital/Urinary: Assessment: 1. UTI. 2. HTN. 3. DM. 4. PUD/GERD. 5. Dementia Plan: Continue Rocephin. renal US. Thank you, Dr Stroud for involving me in taking care of the patient. Signed, Eliseo Humphries M.D. [id number]
[2017-08-06] MEDS: cefTRIAXone 1 GM in Sodium Chloride 0.9% 50 ML IV SCH (20:52)
[2017-08-07] MEDS: Sodium Chloride 0.9% 1,000 ML IV SCH ×4 (06:04→22:52)
[2017-08-07] MEDS: INSULIN ASPART SLIDING SCALE 100 UNITS/ML UNIT SUBQ SCH ×4 (06:37→22:42)
[2017-08-07] MEDS: Ferrous Sulfate 325 MG TAB PO SCH (08:50)
[2017-08-07] MEDS: Fish Oil 1,000 MG SGL PO SCH (08:50)
[2017-08-07] MEDS: Lactobacillus Rhamnosus GG 15 Billion CFU CAP.SPRINK PO SCH (08:50)
[2017-08-07] MEDS: Pantoprazole 40 mg EC Tab PO SCH (08:50)
[2017-08-07] MEDS: Insulin Detemir 100 units/mL 10mL Vial SUBQ SCH ×2 (08:51→22:42)
--- NOTE | 2017-08-07 11:34 | General Progress Note ---
Subjective - Review of Systems Events since last encounter: patient remains confused with generalized weakness Objective - Results Result Diagrams: 08/06/17 06:00 08/06/17 06:00 Recent Labs: Laboratory Last Values WBC 9.1 Th/cmm (4.8-10.8) D 08/06/17 06:00 RBC 4.18 Mil/cmm (3.80-5.10) 08/06/17 06:00 Hgb 12.5 gm/dL (12-16) 08/06/17 06:00 Hct 36.8 % (41.0-60) L 08/06/17 06:00 MCV 88.2 fl (81-100) 08/06/17 06:00 MCH 29.9 pg (27.0-31.0) 08/06/17 06:00 MCHC Differential 33.9 pg (28.0-36.0) 08/06/17 06:00 RDW 12.6 % (11.5-20.0) 08/06/17 06:00 Plt Count 96 Th/cmm (150-400) L D 08/06/17 06:00 MPV 7.4 fl 08/06/17 06:00 Neutrophils % 81.7 % (40.0-80.0) H 08/06/17 06:00 Lymphocytes % 7.5 % (20.0-50.0) L 08/06/17 06:00 Monocytes % 9.1 % (2.0-10.0) 08/06/17 06:00 Eosinophils % 1.4 % (0.0-5.0) 08/06/17 06:00 Basophils % 0.3 % (0.0-2.0) 08/06/17 06:00 Sodium 134 mEq/L (136-145) L 08/06/17 06:00 Potassium 4.2 mEq/L (3.5-5.1) 08/06/17 06:00 Chloride 101 mEq/L (98-107) 08/06/17 06:00 Carbon Dioxide 25.1 mEq/L (21.0-31.0) 08/06/17 06:00 Anion Gap 12.1 (7.0-16.0) 08/06/17 06:00 BUN 23 mg/dL (7-25) 08/06/17 06:00 Creatinine 0.9 mg/dL (0.6-1.2) 08/06/17 06:00 Est GFR ( Amer) > 60.0 ml/min (>90) 08/06/17 06:00 Est GFR (Non-Af Amer) > 60.0 ml/min 08/06/17 06:00 BUN/Creatinine Ratio 25.6 08/06/17 06:00 Glucose 232 mg/dL (70-105) H D 08/06/17 06:00 Hemoglobin A1c % 9.1 % (4.0-6.0) H 08/06/17 06:30 Calcium 8.6 mg/dL (8.6-10.3) 08/06/17 06:00 Total Bilirubin 0.3 mg/dL (0.3-1.0) 08/05/17 16:15 AST 24 U/L (13-39) 08/05/17 16:15 ALT 18 U/L (7-52) 08/05/17 16:15 Alkaline Phosphatase 112 U/L (34-104) H 08/05/17 16:15 Total Protein 7.3 gm/dL (6.0-8.3) 08/05/17 16:15 Albumin 4.2 gm/dL (3.7-5.3) 08/05/17 16:15 Globulin 3.1 gm/dL 08/05/17 16:15 Albumin/Globulin Ratio 1.4 (1.0-1.8) 08/05/17 16:15 Triglycerides 112 mg/dL (<150) 08/06/17 06:00 Cholesterol 152 mg/dL (<200) 08/06/17 06:00 LDL Cholesterol Direct 64 mg/dL (75-193) L 08/06/17 06:00 HDL Cholesterol 69 mg/dL (23-92) 08/06/17 06:00 TSH 3.59 uIU/ml (0.34-5.60) 08/05/17 16:15 Urine Source RANDOM 08/05/17 19:25 Urine Color YELLOW 08/05/17 19:25 Urine Clarity CLEAR (CLEAR) 08/05/17 19:25 Urine pH 6.5 (4.6 - 8.0) 08/05/17 19:25 Ur Specific [place] 1.010 (1.005-1.030) 08/05/17 19:25 Urine Protein NEGATIVE mg/dL (NEGATIVE) 08/05/17 19:25 Urine Glucose (UA) NEGATIVE mg/dL (NEGATIVE) 08/05/17 19:25 Urine Ketones NEGATIVE mg/dL (NEGATIVE) 08/05/17 19:25 Urine Blood NEGATIVE (NEGATIVE) 08/05/17 19:25 Urine Nitrate POSITIVE (NEGATIVE) H 08/05/17 19:25 Urine Bilirubin NEGATIVE (NEGATIVE) 08/05/17 19:25 Urine Urobilinogen 0.2 E.U./dL (0.2 - 1.0) 08/05/17 19:25 Ur Leukocyte Esterase SMALL (NEGATIVE) H 08/05/17 19:25 Urine RBC NONE SEEN /hpf (0-5) 08/05/17 19:25 Urine WBC 25-50 /hpf (0-5) H 08/05/17 19:25 Ur Epithelial Cells NONE SEEN /lpf (FEW) 08/05/17 19:25 Urine Bacteria MODERATE /hpf (NONE SEEN) H 08/05/17 19:25 - Physical Exam Vitals and I&O: Vital Signs Temp 96.3 F 08/07/17 08:00 Pulse 60 08/07/17 08:51 Resp 16 08/07/17 08:00 BP 162/78 08/07/17 08:51 Pulse Ox 99 08/07/17 08:00 Intake & Output 08/06/17 08/07/17 08/07/17 18:59 06:59 18:59 Intake Total 1700 1379.167 Output Total 0 Balance 1700 1379.167 Weight (lbs) 54.431 kg 54.431 kg Intake: Intake, IV Amount 1000 1079.167 Sodium Chloride 0.9% 1, 1000 1079.167 000 ml @ 125 mls/hr IV . Q8H [facility] Rx#:[id number] Oral 700 300 Output: Stool 0 Other: # Voids 3 4 # Bowel Movements 0 Stool Characteristics Soft Formed Brown Active Medications: Current Medications Acetaminophen (Tylenol) 650 mg PO Q4H PRN PRN Reason: Mild-Moderate Pain or T >101 Stop: 10/04/17 23:58 Acetaminophen (Tylenol Extra Strength) 500 mg PO Q4H PRN PRN Reason: Pain (Moderate) Stop: 10/04/17 23:58 Al Hydrox/Mg Hydrox/Simethicone (Maalox) 30 ml PO Q4HR PRN PRN Reason: GI DISTRESS Stop: 10/04/17 23:58 Aripiprazole (Abilify) 30 mg PO HS [facility] Stop: 10/05/17 20:59 Last Admin: 08/06/17 20:54 Dose: 30 mg Carvedilol (Coreg) 12.5 mg PO BID [facility] Stop: 10/05/17 08:59 Last Admin: 08/07/17 08:51 Dose: 12.5 mg Duloxetine HCl (Cymbalta) 30 mg PO DAILY [facility] PRN Reason: Protocol Stop: 10/05/17 08:59 Last Admin: 08/07/17 08:50 Dose: 30 mg Ergocalciferol (Vitamin D) 50,000 iu PO QWED [facility] Stop: 10/09/17 08:59 Ferrous Sulfate (Iron) 325 mg PO DAILY [facility] Stop: 10/05/17 08:59 Last Admin: 08/07/17 08:50 Dose: 325 mg Fish Oil ([place] 3) 1,000 mg PO DAILY [facility] Stop: 10/05/17 08:59 Last Admin: 08/07/17 08:50 Dose: 1,000 mg Gabapentin (Neurontin) 800 mg PO Q8HR [facility] Stop: 10/05/17 04:59 Last Admin: 08/07/17 06:03 Dose: 800 mg Ceftriaxone Sodium 1 gm/ (Sodium Chloride) 50 mls @ 100 mls/hr IV Q24HR [facility] Stop: 10/05/17 20:59 Last Admin: 08/06/17 20:52 Dose: 100 mls/hr Sodium Chloride (Nacl 0.9%) 1,000 mls @ 125 mls/hr IV .Q8H [facility] Stop: 10/04/17 20:44 Last Admin: 08/07/17 06:42 Dose: 125 mls/hr Insulin Aspart (Novolog Insulin Sliding Scale) 0 units SUBQ ACHS [facility] PRN Reason: Protocol Stop: 10/05/17 07:29 Last Admin: 08/07/17 06:37 Dose: 4 units Insulin Detemir (Levemir Insulin) 20 units SUBQ Q12HR [facility] PRN Reason: Protocol Stop: 10/05/17 08:59 Last Admin: 08/07/17 08:51 Dose: 20 units Lactobacillus Rhamnosus (Culturelle 15b) 1 each PO DAILY [facility] Stop: 10/06/17 08:59 Last Admin: 08/07/17 08:50 Dose: 1 each Lorazepam (Ativan) 1 mg PO Q4HR PRN; Protocol PRN Reason: Anxiety Stop: 10/04/17 23:58 Last Admin: 08/06/17 20:52 Dose: 1 mg Magnesium Hydroxide (Milk Of Magnesia) 30 ml PO HS PRN PRN Reason: Constipation Stop: 10/04/17 23:58 Miscellaneous (Probiotic Screen) 1 ea [facility] PRN PRN PRN Reason: PROTOCOL Stop: 10/05/17 15:14 Miscellaneous (Vte Chemical Prophylaxis Screen/ Admission) 1 ea [facility] PRN PRN PRN Reason: PROTOCOL Stop: 10/05/17 17:11 Pantoprazole Sodium (Protonix) 40 mg PO QDAC [facility] Stop: 10/05/17 07:29 Last Admin: 08/07/17 08:50 Dose: 40 mg Trazodone HCl (Desyrel) 100 mg PO HS [facility] PRN Reason: Protocol Stop: 10/05/17 20:59 Last Admin: 08/06/17 20:52 Dose: 100 mg General: No acute distress HEENT: Atraumatic Neck: Supple Cardiovascular: Regular rate, Normal S1, Normal S2 Abdomen: Bowel sounds, Soft, Tender Assessment/Plan - Problem List Patient Problems: All Active Problems Dehydration (Acute) E86.0 Diabetes (Acute) E11.9 Hypokalemia (Acute) E87.6 Hyponatremia (Acute) E87.1 h/o schizophrenia (Acute) history of psychotic disorder (Acute) history of severe depression (Acute) - Plan Plan: antibiotics monitor vitals/diet labs f/up consultants
[2017-08-07] MEDS: cefTRIAXone 1 GM in Sodium Chloride 0.9% 50 ML IV SCH (22:32)
--- NOTE | 2017-08-08 03:15 | Infectious Disease Prog Note ---
Infectious Disease Subjective - Review of Systems Service Date: 08/07/17 Events since last encounter: none Subjective: Doing better. Infectious Disease Objective - Results Result Diagrams: 08/06/17 06:00 08/06/17 06:00 Recent Labs: Laboratory Last Values WBC 9.1 Th/cmm (4.8-10.8) D 08/06/17 06:00 RBC 4.18 Mil/cmm (3.80-5.10) 08/06/17 06:00 Hgb 12.5 gm/dL (12-16) 08/06/17 06:00 Hct 36.8 % (41.0-60) L 08/06/17 06:00 MCV 88.2 fl (81-100) 08/06/17 06:00 MCH 29.9 pg (27.0-31.0) 08/06/17 06:00 MCHC Differential 33.9 pg (28.0-36.0) 08/06/17 06:00 RDW 12.6 % (11.5-20.0) 08/06/17 06:00 Plt Count 96 Th/cmm (150-400) L D 08/06/17 06:00 MPV 7.4 fl 08/06/17 06:00 Neutrophils % 81.7 % (40.0-80.0) H 08/06/17 06:00 Lymphocytes % 7.5 % (20.0-50.0) L 08/06/17 06:00 Monocytes % 9.1 % (2.0-10.0) 08/06/17 06:00 Eosinophils % 1.4 % (0.0-5.0) 08/06/17 06:00 Basophils % 0.3 % (0.0-2.0) 08/06/17 06:00 Sodium 134 mEq/L (136-145) L 08/06/17 06:00 Potassium 4.2 mEq/L (3.5-5.1) 08/06/17 06:00 Chloride 101 mEq/L (98-107) 08/06/17 06:00 Carbon Dioxide 25.1 mEq/L (21.0-31.0) 08/06/17 06:00 Anion Gap 12.1 (7.0-16.0) 08/06/17 06:00 BUN 23 mg/dL (7-25) 08/06/17 06:00 Creatinine 0.9 mg/dL (0.6-1.2) 08/06/17 06:00 Est GFR ( Amer) > 60.0 ml/min (>90) 08/06/17 06:00 Est GFR (Non-Af Amer) > 60.0 ml/min 08/06/17 06:00 BUN/Creatinine Ratio 25.6 08/06/17 06:00 Glucose 232 mg/dL (70-105) H D 08/06/17 06:00 POC Glucose 201 MG/DL (70 - 105) H 08/07/17 22:15 Hemoglobin A1c % 9.1 % (4.0-6.0) H 08/06/17 06:30 Calcium 8.6 mg/dL (8.6-10.3) 08/06/17 06:00 Total Bilirubin 0.3 mg/dL (0.3-1.0) 08/05/17 16:15 AST 24 U/L (13-39) 08/05/17 16:15 ALT 18 U/L (7-52) 08/05/17 16:15 Alkaline Phosphatase 112 U/L (34-104) H 08/05/17 16:15 Total Protein 7.3 gm/dL (6.0-8.3) 08/05/17 16:15 Albumin 4.2 gm/dL (3.7-5.3) 08/05/17 16:15 Globulin 3.1 gm/dL 08/05/17 16:15 Albumin/Globulin Ratio 1.4 (1.0-1.8) 08/05/17 16:15 Triglycerides 112 mg/dL (<150) 08/06/17 06:00 Cholesterol 152 mg/dL (<200) 08/06/17 06:00 LDL Cholesterol Direct 64 mg/dL (75-193) L 08/06/17 06:00 HDL Cholesterol 69 mg/dL (23-92) 08/06/17 06:00 TSH 3.59 uIU/ml (0.34-5.60) 08/05/17 16:15 Urine Source RANDOM 08/05/17 19:25 Urine Color YELLOW 08/05/17 19:25 Urine Clarity CLEAR (CLEAR) 08/05/17 19:25 Urine pH 6.5 (4.6 - 8.0) 08/05/17 19:25 Ur Specific [place] 1.010 (1.005-1.030) 08/05/17 19:25 Urine Protein NEGATIVE mg/dL (NEGATIVE) 08/05/17 19:25 Urine Glucose (UA) NEGATIVE mg/dL (NEGATIVE) 08/05/17 19:25 Urine Ketones NEGATIVE mg/dL (NEGATIVE) 08/05/17 19:25 Urine Blood NEGATIVE (NEGATIVE) 08/05/17 19:25 Urine Nitrate POSITIVE (NEGATIVE) H 08/05/17 19:25 Urine Bilirubin NEGATIVE (NEGATIVE) 08/05/17 19:25 Urine Urobilinogen 0.2 E.U./dL (0.2 - 1.0) 08/05/17 19:25 Ur Leukocyte Esterase SMALL (NEGATIVE) H 08/05/17 19:25 Urine RBC NONE SEEN /hpf (0-5) 08/05/17 19:25 Urine WBC 25-50 /hpf (0-5) H 08/05/17 19:25 Ur Epithelial Cells NONE SEEN /lpf (FEW) 08/05/17 19:25 Urine Bacteria MODERATE /hpf (NONE SEEN) H 08/05/17 19:25 - Physical Exam Vitals and I&O: Vital Signs Temp 97.8 F 08/07/17 16:00 Pulse 60 08/07/17 17:05 Resp 18 08/07/17 16:00 BP 118/52 08/07/17 17:05 Pulse Ox 98 08/07/17 16:00 Intake & Output 08/07/17 08/07/17 08/08/17 06:59 18:59 06:59 Intake Total 1429.167 100.716 1105 Output Total 0 Balance 1429.167 935.943 9698 Weight (lbs) 54.431 kg 54.431 kg Intake: Intake, IV Amount 1129.167 697.467 3983 Sodium Chloride 0.9% 1, 1079.167 720.495 5145 000 ml @ 125 mls/hr IV . Q8H [facility] Rx#:[id number] cefTRIAXone 1 gm In 50 Sodium Chloride 0.9% 50 ml @ 100 mls/hr IV Q24HR [facility] Rx#:[id number] Oral 300 600 Output: Stool 0 Other: # Voids 4 3 # Bowel Movements 0 1 Stool Characteristics Soft Formed Brown Active Medications: Current Medications Acetaminophen (Tylenol) 650 mg PO Q4H PRN PRN Reason: Mild-Moderate Pain or T >101 Stop: 10/04/17 23:58 Acetaminophen (Tylenol Extra Strength) 500 mg PO Q4H PRN PRN Reason: Pain (Moderate) Stop: 10/04/17 23:58 Al Hydrox/Mg Hydrox/Simethicone (Maalox) 30 ml PO Q4HR PRN PRN Reason: GI DISTRESS Stop: 10/04/17 23:58 Aripiprazole (Abilify) 30 mg PO HS [facility] Stop: 10/05/17 20:59 Last Admin: 08/07/17 21:30 Dose: 30 mg Carvedilol (Coreg) 12.5 mg PO BID [facility] Stop: 10/05/17 08:59 Last Admin: 08/07/17 17:05 Dose: 12.5 mg Duloxetine HCl (Cymbalta) 30 mg PO DAILY [facility] PRN Reason: Protocol Stop: 10/05/17 08:59 Last Admin: 08/07/17 08:50 Dose: 30 mg Ergocalciferol (Vitamin D) 50,000 iu PO QWED [facility] Stop: 10/09/17 08:59 Ferrous Sulfate (Iron) 325 mg PO DAILY [facility] Stop: 10/05/17 08:59 Last Admin: 08/07/17 08:50 Dose: 325 mg Fish Oil ([place] 3) 1,000 mg PO DAILY [facility] Stop: 10/05/17 08:59 Last Admin: 08/07/17 08:50 Dose: 1,000 mg Gabapentin (Neurontin) 800 mg PO Q8HR [facility] Stop: 10/05/17 04:59 Last Admin: 08/07/17 21:30 Dose: 800 mg Ceftriaxone Sodium 1 gm/ (Sodium Chloride) 50 mls @ 100 mls/hr IV Q24HR [facility] Stop: 10/05/17 20:59 Last Admin: 08/07/17 22:32 Dose: 100 mls/hr Sodium Chloride (Nacl 0.9%) 1,000 mls @ 125 mls/hr IV .Q8H [facility] Stop: 10/04/17 20:44 Last Admin: 08/07/17 22:52 Dose: 125 mls/hr Insulin Aspart (Novolog Insulin Sliding Scale) 0 units SUBQ ACHS [facility] PRN Reason: Protocol Stop: 10/05/17 07:29 Last Admin: 08/07/17 22:42 Dose: 2 units Insulin Detemir (Levemir Insulin) 20 units SUBQ Q12HR [facility] PRN Reason: Protocol Stop: 10/05/17 08:59 Last Admin: 08/07/17 22:42 Dose: 20 units Lactobacillus Rhamnosus (Culturelle 15b) 1 each PO DAILY [facility] Stop: 10/06/17 08:59 Last Admin: 08/07/17 08:50 Dose: 1 each Lorazepam (Ativan) 1 mg PO Q4HR PRN; Protocol PRN Reason: Anxiety Stop: 10/04/17 23:58 Last Admin: 08/06/17 20:52 Dose: 1 mg Magnesium Hydroxide (Milk Of Magnesia) 30 ml PO HS PRN PRN Reason: Constipation Stop: 10/04/17 23:58 Miscellaneous (Probiotic Screen) 1 ea [facility] PRN PRN PRN Reason: PROTOCOL Stop: 10/05/17 15:14 Miscellaneous (Vte Chemical Prophylaxis Screen/ Admission) 1 ea [facility] PRN PRN PRN Reason: PROTOCOL Stop: 10/05/17 17:11 Pantoprazole Sodium (Protonix) 40 mg PO QDAC DEVAUGHN Stop: 10/05/17 07:29 Last Admin: 08/07/17 08:50 Dose: 40 mg Trazodone HCl (Desyrel) 100 mg PO HS DEVAUGHN PRN Reason: Protocol Stop: 10/05/17 20:59 Last Admin: 08/07/17 21:31 Dose: 100 mg General: no acute distress, well developed, well nourished HEENT: atraumatic, normocephalic, PERRLA, EOMI Neck: supple, no thyromegaly Cardiovascular: S1S2, regular Lungs: clear to auscultation bilaterally, clear to percussion Abdomen: soft, no tender, no distended, no hepatomegaly Extremities: no cyanosis, no clubbing, no edema Neurological: awake, alert, oriented Skin: intact Infectious Disease Assmt/Plan - Problem List Patient Problems: All Active Problems Dehydration (Acute) E86.0 Diabetes (Acute) E11.9 Hypokalemia (Acute) E87.6 Hyponatremia (Acute) E87.1 h/o schizophrenia (Acute) history of psychotic disorder (Acute) history of severe depression (Acute) - Assessment Assessment: 1. UTI. 2. HTN. 3. DM. 4. PUD/GERD. 5. Dementia - Plan Plan: Continue rocephin.
[2017-08-08] MEDS: Sodium Chloride 0.9% 1,000 ML IV SCH (05:30)
--- NOTE | 2017-08-08 07:30 | Diagnostic Imaging Report ---
Exam: Renal ultrasound. HISTORY: UTI. Findings: Real-time ultrasound examination of the kidneys bilaterally was performed multiple planes No prior studies available for comparison. The study demonstrates no evidence of obstructive uropathy or nephrolithiasis bilaterally. Right kidney measures 9.8 x 5 x 5.3 cm diameter. Left kidney measures 9.3 x 4.9 x 5.6 cm diameter. Urinary bladder is intact. The study somewhat limited. IMPRESSION: Essentially unremarkable examination of the kidneys.
[2017-08-08] MEDS: INSULIN ASPART SLIDING SCALE 100 UNITS/ML UNIT SUBQ SCH ×4 (07:54→21:32)
[2017-08-08] MEDS: Pantoprazole 40 mg EC Tab PO SCH (08:31)
[2017-08-08] MEDS: Lactobacillus Rhamnosus GG 15 Billion CFU CAP.SPRINK PO SCH (08:32)
[2017-08-08] MEDS: Fish Oil 1,000 MG SGL PO SCH (08:32)
[2017-08-08] MEDS: Ferrous Sulfate 325 MG TAB PO SCH (08:32)
[2017-08-08] MEDS: Insulin Detemir 100 units/mL 10mL Vial SUBQ SCH ×2 (10:33→21:32)
--- NOTE | 2017-08-08 12:47 | General Progress Note ---
Subjective - Review of Systems Events since last encounter: no distres patient awake alert Objective - Results Result Diagrams: 08/06/17 06:00 08/06/17 06:00 Recent Labs: Laboratory Last Values WBC 9.1 Th/cmm (4.8-10.8) D 08/06/17 06:00 RBC 4.18 Mil/cmm (3.80-5.10) 08/06/17 06:00 Hgb 12.5 gm/dL (12-16) 08/06/17 06:00 Hct 36.8 % (41.0-60) L 08/06/17 06:00 MCV 88.2 fl (81-100) 08/06/17 06:00 MCH 29.9 pg (27.0-31.0) 08/06/17 06:00 MCHC Differential 33.9 pg (28.0-36.0) 08/06/17 06:00 RDW 12.6 % (11.5-20.0) 08/06/17 06:00 Plt Count 96 Th/cmm (150-400) L D 08/06/17 06:00 MPV 7.4 fl 08/06/17 06:00 Neutrophils % 81.7 % (40.0-80.0) H 08/06/17 06:00 Lymphocytes % 7.5 % (20.0-50.0) L 08/06/17 06:00 Monocytes % 9.1 % (2.0-10.0) 08/06/17 06:00 Eosinophils % 1.4 % (0.0-5.0) 08/06/17 06:00 Basophils % 0.3 % (0.0-2.0) 08/06/17 06:00 Sodium 134 mEq/L (136-145) L 08/06/17 06:00 Potassium 4.2 mEq/L (3.5-5.1) 08/06/17 06:00 Chloride 101 mEq/L (98-107) 08/06/17 06:00 Carbon Dioxide 25.1 mEq/L (21.0-31.0) 08/06/17 06:00 Anion Gap 12.1 (7.0-16.0) 08/06/17 06:00 BUN 23 mg/dL (7-25) 08/06/17 06:00 Creatinine 0.9 mg/dL (0.6-1.2) 08/06/17 06:00 Est GFR ( Amer) > 60.0 ml/min (>90) 08/06/17 06:00 Est GFR (Non-Af Amer) > 60.0 ml/min 08/06/17 06:00 BUN/Creatinine Ratio 25.6 08/06/17 06:00 Glucose 232 mg/dL (70-105) H D 08/06/17 06:00 POC Glucose 157 MG/DL (70 - 105) H 08/08/17 12:26 Hemoglobin A1c % 9.1 % (4.0-6.0) H 08/06/17 06:30 Calcium 8.6 mg/dL (8.6-10.3) 08/06/17 06:00 Total Bilirubin 0.3 mg/dL (0.3-1.0) 08/05/17 16:15 AST 24 U/L (13-39) 08/05/17 16:15 ALT 18 U/L (7-52) 08/05/17 16:15 Alkaline Phosphatase 112 U/L (34-104) H 08/05/17 16:15 Total Protein 7.3 gm/dL (6.0-8.3) 08/05/17 16:15 Albumin 4.2 gm/dL (3.7-5.3) 08/05/17 16:15 Globulin 3.1 gm/dL 08/05/17 16:15 Albumin/Globulin Ratio 1.4 (1.0-1.8) 08/05/17 16:15 Triglycerides 112 mg/dL (<150) 08/06/17 06:00 Cholesterol 152 mg/dL (<200) 08/06/17 06:00 LDL Cholesterol Direct 64 mg/dL (75-193) L 08/06/17 06:00 HDL Cholesterol 69 mg/dL (23-92) 08/06/17 06:00 TSH 3.59 uIU/ml (0.34-5.60) 08/05/17 16:15 Urine Source RANDOM 08/05/17 19:25 Urine Color YELLOW 08/05/17 19:25 Urine Clarity CLEAR (CLEAR) 08/05/17 19:25 Urine pH 6.5 (4.6 - 8.0) 08/05/17 19:25 Ur Specific [place] 1.010 (1.005-1.030) 08/05/17 19:25 Urine Protein NEGATIVE mg/dL (NEGATIVE) 08/05/17 19:25 Urine Glucose (UA) NEGATIVE mg/dL (NEGATIVE) 08/05/17 19:25 Urine Ketones NEGATIVE mg/dL (NEGATIVE) 08/05/17 19:25 Urine Blood NEGATIVE (NEGATIVE) 08/05/17 19:25 Urine Nitrate POSITIVE (NEGATIVE) H 08/05/17 19:25 Urine Bilirubin NEGATIVE (NEGATIVE) 08/05/17 19:25 Urine Urobilinogen 0.2 E.U./dL (0.2 - 1.0) 08/05/17 19:25 Ur Leukocyte Esterase SMALL (NEGATIVE) H 08/05/17 19:25 Urine RBC NONE SEEN /hpf (0-5) 08/05/17 19:25 Urine WBC 25-50 /hpf (0-5) H 08/05/17 19:25 Ur Epithelial Cells NONE SEEN /lpf (FEW) 08/05/17 19:25 Urine Bacteria MODERATE /hpf (NONE SEEN) H 08/05/17 19:25 - Physical Exam Vitals and I&O: Vital Signs Temp 97.1 F 08/08/17 11:42 Pulse 61 08/08/17 11:42 Resp 18 08/08/17 11:42 BP 123/60 08/08/17 11:42 Pulse Ox 98 08/08/17 11:42 Intake & Output 08/07/17 08/08/17 08/08/17 18:59 06:59 18:59 Intake Total 874.416 2633.167 Balance 023.753 6320.167 Weight (lbs) 54.431 kg Intake: Intake, IV Amount 142.371 6162.167 Sodium Chloride 0.9% 1, 428.385 4245.167 000 ml @ 125 mls/hr IV . Q8H [facility] Rx#:[id number] Oral 600 Other: # Voids 3 # Bowel Movements 1 Stool Characteristics Soft Formed Brown Active Medications: Current Medications Acetaminophen (Tylenol) 650 mg PO Q4H PRN PRN Reason: Mild-Moderate Pain or T >101 Stop: 10/04/17 23:58 Acetaminophen (Tylenol Extra Strength) 500 mg PO Q4H PRN PRN Reason: Pain (Moderate) Stop: 10/04/17 23:58 Al Hydrox/Mg Hydrox/Simethicone (Maalox) 30 ml PO Q4HR PRN PRN Reason: GI DISTRESS Stop: 10/04/17 23:58 Aripiprazole (Abilify) 30 mg PO HS [facility] Stop: 10/05/17 20:59 Last Admin: 08/07/17 21:30 Dose: 30 mg Carvedilol (Coreg) 12.5 mg PO BID [facility] Stop: 10/05/17 08:59 Last Admin: 08/08/17 08:31 Dose: 12.5 mg Duloxetine HCl (Cymbalta) 30 mg PO DAILY [facility] PRN Reason: Protocol Stop: 10/05/17 08:59 Last Admin: 08/08/17 08:32 Dose: 30 mg Ergocalciferol (Vitamin D) 50,000 iu PO QWED [facility] Stop: 10/09/17 08:59 Ferrous Sulfate (Iron) 325 mg PO DAILY [facility] Stop: 10/05/17 08:59 Last Admin: 08/08/17 08:32 Dose: 325 mg Fish Oil ([place] 3) 1,000 mg PO DAILY [facility] Stop: 10/05/17 08:59 Last Admin: 08/08/17 08:32 Dose: 1,000 mg Gabapentin (Neurontin) 800 mg PO Q8HR [facility] Stop: 10/05/17 04:59 Last Admin: 08/08/17 05:28 Dose: 800 mg Ceftriaxone Sodium 1 gm/ (Sodium Chloride) 50 mls @ 100 mls/hr IV Q24HR [facility] Stop: 10/05/17 20:59 Last Admin: 08/07/17 22:32 Dose: 100 mls/hr Sodium Chloride (Nacl 0.9%) 1,000 mls @ 125 mls/hr IV .Q8H [facility] Stop: 10/04/17 20:44 Last Admin: 08/08/17 05:30 Dose: 125 mls/hr Insulin Aspart (Novolog Insulin Sliding Scale) 0 units SUBQ ACHS [facility] PRN Reason: Protocol Stop: 10/05/17 07:29 Last Admin: 08/08/17 07:54 Dose: Not Given Insulin Detemir (Levemir Insulin) 20 units SUBQ Q12HR [facility] PRN Reason: Protocol Stop: 10/05/17 08:59 Last Admin: 08/08/17 10:33 Dose: 20 units Lactobacillus Rhamnosus (Culturelle 15b) 1 each PO DAILY [facility] Stop: 10/06/17 08:59 Last Admin: 08/08/17 08:32 Dose: 1 each Lorazepam (Ativan) 1 mg PO Q4HR PRN; Protocol PRN Reason: Anxiety Stop: 10/04/17 23:58 Last Admin: 08/06/17 20:52 Dose: 1 mg Magnesium Hydroxide (Milk Of Magnesia) 30 ml PO HS PRN PRN Reason: Constipation Stop: 10/04/17 23:58 Miscellaneous (Probiotic Screen) 1 ea [facility] PRN PRN PRN Reason: PROTOCOL Stop: 10/05/17 15:14 Miscellaneous (Vte Chemical Prophylaxis Screen/ Admission) 1 ea [facility] PRN PRN PRN Reason: PROTOCOL Stop: 10/05/17 17:11 Pantoprazole Sodium (Protonix) 40 mg PO QDAC [facility] Stop: 10/05/17 07:29 Last Admin: 08/08/17 08:31 Dose: 40 mg Trazodone HCl (Desyrel) 100 mg PO HS [facility] PRN Reason: Protocol Stop: 10/05/17 20:59 Last Admin: 08/07/17 21:31 Dose: 100 mg General: No acute distress HEENT: Atraumatic Neck: Supple Cardiovascular: Regular rate, Normal S1, Normal S2 Abdomen: Bowel sounds, Soft, Tender Assessment/Plan - Problem List Patient Problems: All Active Problems Dehydration (Acute) E86.0 Diabetes (Acute) E11.9 Hypokalemia (Acute) E87.6 Hyponatremia (Acute) E87.1 h/o schizophrenia (Acute) history of psychotic disorder (Acute) history of severe depression (Acute) - Plan Plan: antibiotics monitor vitals/diet labs f/up consultants
--- NOTE | 2017-08-08 16:01 | Infectious Disease Prog Note ---
Infectious Disease Subjective - Review of Systems Service Date: 08/08/17 Subjective: Doing better. Infectious Disease Objective - Results Result Diagrams: 08/06/17 06:00 08/06/17 06:00 Recent Labs: Laboratory Last Values WBC 9.1 Th/cmm (4.8-10.8) D 08/06/17 06:00 RBC 4.18 Mil/cmm (3.80-5.10) 08/06/17 06:00 Hgb 12.5 gm/dL (12-16) 08/06/17 06:00 Hct 36.8 % (41.0-60) L 08/06/17 06:00 MCV 88.2 fl (81-100) 08/06/17 06:00 MCH 29.9 pg (27.0-31.0) 08/06/17 06:00 MCHC Differential 33.9 pg (28.0-36.0) 08/06/17 06:00 RDW 12.6 % (11.5-20.0) 08/06/17 06:00 Plt Count 96 Th/cmm (150-400) L D 08/06/17 06:00 MPV 7.4 fl 08/06/17 06:00 Neutrophils % 81.7 % (40.0-80.0) H 08/06/17 06:00 Lymphocytes % 7.5 % (20.0-50.0) L 08/06/17 06:00 Monocytes % 9.1 % (2.0-10.0) 08/06/17 06:00 Eosinophils % 1.4 % (0.0-5.0) 08/06/17 06:00 Basophils % 0.3 % (0.0-2.0) 08/06/17 06:00 Sodium 134 mEq/L (136-145) L 08/06/17 06:00 Potassium 4.2 mEq/L (3.5-5.1) 08/06/17 06:00 Chloride 101 mEq/L (98-107) 08/06/17 06:00 Carbon Dioxide 25.1 mEq/L (21.0-31.0) 08/06/17 06:00 Anion Gap 12.1 (7.0-16.0) 08/06/17 06:00 BUN 23 mg/dL (7-25) 08/06/17 06:00 Creatinine 0.9 mg/dL (0.6-1.2) 08/06/17 06:00 Est GFR ( Amer) > 60.0 ml/min (>90) 08/06/17 06:00 Est GFR (Non-Af Amer) > 60.0 ml/min 08/06/17 06:00 BUN/Creatinine Ratio 25.6 08/06/17 06:00 Glucose 232 mg/dL (70-105) H D 08/06/17 06:00 POC Glucose 157 MG/DL (70 - 105) H 08/08/17 12:26 Hemoglobin A1c % 9.1 % (4.0-6.0) H 08/06/17 06:30 Calcium 8.6 mg/dL (8.6-10.3) 08/06/17 06:00 Total Bilirubin 0.3 mg/dL (0.3-1.0) 08/05/17 16:15 AST 24 U/L (13-39) 08/05/17 16:15 ALT 18 U/L (7-52) 08/05/17 16:15 Alkaline Phosphatase 112 U/L (34-104) H 08/05/17 16:15 Total Protein 7.3 gm/dL (6.0-8.3) 08/05/17 16:15 Albumin 4.2 gm/dL (3.7-5.3) 08/05/17 16:15 Globulin 3.1 gm/dL 08/05/17 16:15 Albumin/Globulin Ratio 1.4 (1.0-1.8) 08/05/17 16:15 Triglycerides 112 mg/dL (<150) 08/06/17 06:00 Cholesterol 152 mg/dL (<200) 08/06/17 06:00 LDL Cholesterol Direct 64 mg/dL (75-193) L 08/06/17 06:00 HDL Cholesterol 69 mg/dL (23-92) 08/06/17 06:00 TSH 3.59 uIU/ml (0.34-5.60) 08/05/17 16:15 Urine Source RANDOM 08/05/17 19:25 Urine Color YELLOW 08/05/17 19:25 Urine Clarity CLEAR (CLEAR) 08/05/17 19:25 Urine pH 6.5 (4.6 - 8.0) 08/05/17 19:25 Ur Specific [place] 1.010 (1.005-1.030) 08/05/17 19:25 Urine Protein NEGATIVE mg/dL (NEGATIVE) 08/05/17 19:25 Urine Glucose (UA) NEGATIVE mg/dL (NEGATIVE) 08/05/17 19:25 Urine Ketones NEGATIVE mg/dL (NEGATIVE) 08/05/17 19:25 Urine Blood NEGATIVE (NEGATIVE) 08/05/17 19:25 Urine Nitrate POSITIVE (NEGATIVE) H 08/05/17 19:25 Urine Bilirubin NEGATIVE (NEGATIVE) 08/05/17 19:25 Urine Urobilinogen 0.2 E.U./dL (0.2 - 1.0) 08/05/17 19:25 Ur Leukocyte Esterase SMALL (NEGATIVE) H 08/05/17 19:25 Urine RBC NONE SEEN /hpf (0-5) 08/05/17 19:25 Urine WBC 25-50 /hpf (0-5) H 08/05/17 19:25 Ur Epithelial Cells NONE SEEN /lpf (FEW) 08/05/17 19:25 Urine Bacteria MODERATE /hpf (NONE SEEN) H 08/05/17 19:25 - Physical Exam Vitals and I&O: Vital Signs Temp 97.6 F 08/08/17 15:44 Pulse 65 08/08/17 15:44 Resp 17 08/08/17 15:44 BP 127/54 08/08/17 15:44 Pulse Ox 97 08/08/17 15:44 Intake & Output 08/07/17 08/08/17 08/08/17 18:59 06:59 18:59 Intake Total 946.096 8881.167 Balance 278.163 1808.167 Weight (lbs) 54.431 kg Intake: Intake, IV Amount 768.283 7433.167 Sodium Chloride 0.9% 1, 648.773 7027.167 000 ml @ 125 mls/hr IV . Q8H [facility] Rx#:[id number] Oral 600 Other: # Voids 3 # Bowel Movements 1 Stool Characteristics Soft Formed Brown Active Medications: Current Medications Acetaminophen (Tylenol) 650 mg PO Q4H PRN PRN Reason: Mild-Moderate Pain or T >101 Stop: 10/04/17 23:58 Acetaminophen (Tylenol Extra Strength) 500 mg PO Q4H PRN PRN Reason: Pain (Moderate) Stop: 10/04/17 23:58 Al Hydrox/Mg Hydrox/Simethicone (Maalox) 30 ml PO Q4HR PRN PRN Reason: GI DISTRESS Stop: 10/04/17 23:58 Aripiprazole (Abilify) 30 mg PO HS [facility] Stop: 10/05/17 20:59 Last Admin: 08/07/17 21:30 Dose: 30 mg Carvedilol (Coreg) 12.5 mg PO BID [facility] Stop: 10/05/17 08:59 Last Admin: 08/08/17 08:31 Dose: 12.5 mg Duloxetine HCl (Cymbalta) 30 mg PO DAILY [facility] PRN Reason: Protocol Stop: 10/05/17 08:59 Last Admin: 08/08/17 08:32 Dose: 30 mg Ergocalciferol (Vitamin D) 50,000 iu PO QWED [facility] Stop: 10/09/17 08:59 Ferrous Sulfate (Iron) 325 mg PO DAILY [facility] Stop: 10/05/17 08:59 Last Admin: 08/08/17 08:32 Dose: 325 mg Fish Oil ([place] 3) 1,000 mg PO DAILY [facility] Stop: 10/05/17 08:59 Last Admin: 08/08/17 08:32 Dose: 1,000 mg Gabapentin (Neurontin) 800 mg PO Q8HR [facility] Stop: 10/05/17 04:59 Last Admin: 08/08/17 12:49 Dose: 800 mg Ceftriaxone Sodium 1 gm/ (Sodium Chloride) 50 mls @ 100 mls/hr IV Q24HR [facility] Stop: 10/05/17 20:59 Last Admin: 08/07/17 22:32 Dose: 100 mls/hr Sodium Chloride (Nacl 0.9%) 1,000 mls @ 125 mls/hr IV .Q8H [facility] Stop: 10/04/17 20:44 Last Admin: 08/08/17 05:30 Dose: 125 mls/hr Insulin Aspart (Novolog Insulin Sliding Scale) 0 units SUBQ ACHS [facility] PRN Reason: Protocol Stop: 10/05/17 07:29 Last Admin: 08/08/17 12:49 Dose: 2 units Insulin Detemir (Levemir Insulin) 20 units SUBQ Q12HR [facility] PRN Reason: Protocol Stop: 10/05/17 08:59 Last Admin: 08/08/17 10:33 Dose: 20 units Lactobacillus Rhamnosus (Culturelle 15b) 1 each PO DAILY [facility] Stop: 10/06/17 08:59 Last Admin: 08/08/17 08:32 Dose: 1 each Lorazepam (Ativan) 1 mg PO Q4HR PRN; Protocol PRN Reason: Anxiety Stop: 10/04/17 23:58 Last Admin: 08/06/17 20:52 Dose: 1 mg Magnesium Hydroxide (Milk Of Magnesia) 30 ml PO HS PRN PRN Reason: Constipation Stop: 10/04/17 23:58 Miscellaneous (Probiotic Screen) 1 ea [facility] PRN PRN PRN Reason: PROTOCOL Stop: 10/05/17 15:14 Miscellaneous (Vte Chemical Prophylaxis Screen/ Admission) 1 ea [facility] PRN PRN PRN Reason: PROTOCOL Stop: 10/05/17 17:11 Pantoprazole Sodium (Protonix) 40 mg PO QDAC [facility] Stop: 10/05/17 07:29 Last Admin: 08/08/17 08:31 Dose: 40 mg Trazodone HCl (Desyrel) 100 mg PO HS [facility] PRN Reason: Protocol Stop: 10/05/17 20:59 Last Admin: 08/07/17 21:31 Dose: 100 mg General: no acute distress, well developed, well nourished HEENT: atraumatic, normocephalic, PERRLA, EOMI Neck: supple, no thyromegaly Cardiovascular: S1S2, regular Lungs: clear to auscultation bilaterally, clear to percussion Abdomen: soft, no tender, no distended Extremities: no cyanosis, no clubbing, no edema Neurological: awake, alert, oriented Skin: intact Infectious Disease Assmt/Plan - Problem List Patient Problems: All Active Problems Dehydration (Acute) E86.0 Diabetes (Acute) E11.9 Hypokalemia (Acute) E87.6 Hyponatremia (Acute) E87.1 h/o schizophrenia (Acute) history of psychotic disorder (Acute) history of severe depression (Acute) - Assessment Assessment: 1. UTI. 2. HTN. 3. DM. 4. PUD/GERD. 5. Dementia - Plan Plan: Continue rocephin.
[2017-08-08] MEDS: cefTRIAXone 1 GM in Sodium Chloride 0.9% 50 ML IV SCH (21:28)
[2017-08-09] MEDS: INSULIN ASPART SLIDING SCALE 100 UNITS/ML UNIT SUBQ SCH ×4 (06:45→20:46)
--- NOTE | 2017-08-09 08:26 | Progress Notes ---
DATE: 08/08/2017 SUBJECTIVE: The patient was seen in her room, lying in the bed. The patient appears to be more awake and alert, but patient is a poor historian due to medical condition. Otherwise, appears to be comfortable, in no acute distress. OBJECTIVE: VITAL SIGNS: Temperature 97.1, heart rate of 61, respiration of 18, blood pressure 122/60, 98% on room air. HEENT: Head is atraumatic and normocephalic. Eyes: Bilateral conjunctivae are clear. Bilateral pupils are equally round and reactive. NECK: Supple. No JVD. CARDIOVASCULAR: S1 and S2, without murmur. PULMONARY: Clear to auscultation. GASTROINTESTINAL: Soft and nontender without guarding. Positive bowel sounds. MUSCULOSKELETAL: No clubbing, no cyanosis noted. ASSESSMENT: 1. Urinary tract infection. 2. Dementia. 3. Osteoarthritis. 4. Hypertension. 5. Vitamin D deficiency. 6. Iron deficiency anemia. 7. Diabetes mellitus. PLAN: We will continue to keep the patient inpatient. We will followup with ID doctor to monitor the patient's condition and behavior and also for antibiotic management. Treatment plans were discussed with the patient's nurse. Treatment plans were discussed with Dr. Stroud. JOB# [id number]
[2017-08-09] MEDS: Lactobacillus Rhamnosus GG 15 Billion CFU CAP.SPRINK PO SCH (08:46)
[2017-08-09] MEDS: Ferrous Sulfate 325 MG TAB PO SCH (08:46)
[2017-08-09] MEDS: Fish Oil 1,000 MG SGL PO SCH (08:49)
[2017-08-09] MEDS: Pantoprazole 40 mg EC Tab PO SCH (08:50)
[2017-08-09] MEDS: Insulin Detemir 100 units/mL 10mL Vial SUBQ SCH ×2 (08:56→20:47)
--- NOTE | 2017-08-09 17:15 | Internal Medicine Prog Note ---
Internal Medicine Subjective - Subjective Service Date: 08/09/17 Patient seen and examined:: with staff Patient is:: awake Per staff patient has:: tolerating meds Internal Medicine Objective - Results Result Diagrams: 08/06/17 06:00 08/06/17 06:00 Recent Labs: Laboratory Last Values WBC 9.1 Th/cmm (4.8-10.8) D 08/06/17 06:00 RBC 4.18 Mil/cmm (3.80-5.10) 08/06/17 06:00 Hgb 12.5 gm/dL (12-16) 08/06/17 06:00 Hct 36.8 % (41.0-60) L 08/06/17 06:00 MCV 88.2 fl (81-100) 08/06/17 06:00 MCH 29.9 pg (27.0-31.0) 08/06/17 06:00 MCHC Differential 33.9 pg (28.0-36.0) 08/06/17 06:00 RDW 12.6 % (11.5-20.0) 08/06/17 06:00 Plt Count 96 Th/cmm (150-400) L D 08/06/17 06:00 MPV 7.4 fl 08/06/17 06:00 Neutrophils % 81.7 % (40.0-80.0) H 08/06/17 06:00 Lymphocytes % 7.5 % (20.0-50.0) L 08/06/17 06:00 Monocytes % 9.1 % (2.0-10.0) 08/06/17 06:00 Eosinophils % 1.4 % (0.0-5.0) 08/06/17 06:00 Basophils % 0.3 % (0.0-2.0) 08/06/17 06:00 Sodium 134 mEq/L (136-145) L 08/06/17 06:00 Potassium 4.2 mEq/L (3.5-5.1) 08/06/17 06:00 Chloride 101 mEq/L (98-107) 08/06/17 06:00 Carbon Dioxide 25.1 mEq/L (21.0-31.0) 08/06/17 06:00 Anion Gap 12.1 (7.0-16.0) 08/06/17 06:00 BUN 23 mg/dL (7-25) 08/06/17 06:00 Creatinine 0.9 mg/dL (0.6-1.2) 08/06/17 06:00 Est GFR ( Amer) > 60.0 ml/min (>90) 08/06/17 06:00 Est GFR (Non-Af Amer) > 60.0 ml/min 08/06/17 06:00 BUN/Creatinine Ratio 25.6 08/06/17 06:00 Glucose 232 mg/dL (70-105) H D 08/06/17 06:00 POC Glucose 134 MG/DL (70 - 105) H 08/09/17 06:30 Hemoglobin A1c % 9.1 % (4.0-6.0) H 08/06/17 06:30 Calcium 8.6 mg/dL (8.6-10.3) 08/06/17 06:00 Total Bilirubin 0.3 mg/dL (0.3-1.0) 08/05/17 16:15 AST 24 U/L (13-39) 08/05/17 16:15 ALT 18 U/L (7-52) 08/05/17 16:15 Alkaline Phosphatase 112 U/L (34-104) H 08/05/17 16:15 Total Protein 7.3 gm/dL (6.0-8.3) 08/05/17 16:15 Albumin 4.2 gm/dL (3.7-5.3) 08/05/17 16:15 Globulin 3.1 gm/dL 08/05/17 16:15 Albumin/Globulin Ratio 1.4 (1.0-1.8) 08/05/17 16:15 Triglycerides 112 mg/dL (<150) 08/06/17 06:00 Cholesterol 152 mg/dL (<200) 08/06/17 06:00 LDL Cholesterol Direct 64 mg/dL (75-193) L 08/06/17 06:00 HDL Cholesterol 69 mg/dL (23-92) 08/06/17 06:00 TSH 3.59 uIU/ml (0.34-5.60) 08/05/17 16:15 Urine Source RANDOM 08/05/17 19:25 Urine Color YELLOW 08/05/17 19:25 Urine Clarity CLEAR (CLEAR) 08/05/17 19:25 Urine pH 6.5 (4.6 - 8.0) 08/05/17 19:25 Ur Specific [place] 1.010 (1.005-1.030) 08/05/17 19:25 Urine Protein NEGATIVE mg/dL (NEGATIVE) 08/05/17 19:25 Urine Glucose (UA) NEGATIVE mg/dL (NEGATIVE) 08/05/17 19:25 Urine Ketones NEGATIVE mg/dL (NEGATIVE) 08/05/17 19:25 Urine Blood NEGATIVE (NEGATIVE) 08/05/17 19:25 Urine Nitrate POSITIVE (NEGATIVE) H 08/05/17 19:25 Urine Bilirubin NEGATIVE (NEGATIVE) 08/05/17 19:25 Urine Urobilinogen 0.2 E.U./dL (0.2 - 1.0) 08/05/17 19:25 Ur Leukocyte Esterase SMALL (NEGATIVE) H 08/05/17 19:25 Urine RBC NONE SEEN /hpf (0-5) 08/05/17 19:25 Urine WBC 25-50 /hpf (0-5) H 08/05/17 19:25 Ur Epithelial Cells NONE SEEN /lpf (FEW) 08/05/17 19:25 Urine Bacteria MODERATE /hpf (NONE SEEN) H 08/05/17 19:25 - Physical Exam Vitals and I&O: Vital Signs Temp 97.7 F 08/09/17 12:00 Pulse 62 08/09/17 17:10 Resp 18 08/09/17 12:00 BP 167/62 08/09/17 17:10 Pulse Ox 98 08/09/17 12:00 Intake & Output 08/08/17 08/09/17 08/09/17 18:59 06:59 18:59 Intake Total 500 550 Balance 500 550 Weight (lbs) 120 lb 120 lb Intake: Oral 500 550 Other: # Voids 4 4 # Bowel Movements 0 0 Active Medications: Current Medications Acetaminophen (Tylenol) 650 mg PO Q4H PRN PRN Reason: Mild-Moderate Pain or T >101 Stop: 10/04/17 23:58 Acetaminophen (Tylenol Extra Strength) 500 mg PO Q4H PRN PRN Reason: Pain (Moderate) Stop: 10/04/17 23:58 Al Hydrox/Mg Hydrox/Simethicone (Maalox) 30 ml PO Q4HR PRN PRN Reason: GI DISTRESS Stop: 10/04/17 23:58 Aripiprazole (Abilify) 30 mg PO HS [facility] Stop: 10/05/17 20:59 Last Admin: 08/08/17 21:29 Dose: 30 mg Carvedilol (Coreg) 12.5 mg PO BID [facility] Stop: 10/05/17 08:59 Last Admin: 08/09/17 17:10 Dose: 12.5 mg Duloxetine HCl (Cymbalta) 30 mg PO DAILY [facility] PRN Reason: Protocol Stop: 10/05/17 08:59 Last Admin: 08/09/17 08:48 Dose: 30 mg Ergocalciferol (Vitamin D) 50,000 iu PO QWED [facility] Stop: 10/09/17 08:59 Ferrous Sulfate (Iron) 325 mg PO DAILY [facility] Stop: 10/05/17 08:59 Last Admin: 08/09/17 08:46 Dose: 325 mg Fish Oil ([place] 3) 1,000 mg PO DAILY [facility] Stop: 10/05/17 08:59 Last Admin: 08/09/17 08:49 Dose: 1,000 mg Gabapentin (Neurontin) 800 mg PO Q8HR [facility] Stop: 10/05/17 04:59 Last Admin: 08/09/17 13:02 Dose: 800 mg Ceftriaxone Sodium 1 gm/ (Sodium Chloride) 50 mls @ 100 mls/hr IV Q24HR [facility] Stop: 10/05/17 20:59 Last Admin: 08/08/17 21:28 Dose: 100 mls/hr Sodium Chloride (Nacl 0.9%) 1,000 mls @ 125 mls/hr IV .Q8H [facility] Stop: 10/04/17 20:44 Last Admin: 08/08/17 05:30 Dose: 125 mls/hr Insulin Aspart (Novolog Insulin Sliding Scale) 0 units SUBQ ACHS DEVAUGHN PRN Reason: Protocol Stop: 10/05/17 07:29 Last Admin: 08/09/17 17:07 Dose: 2 units Insulin Detemir (Levemir Insulin) 20 units SUBQ Q12HR DEVAUGHN PRN Reason: Protocol Stop: 10/05/17 08:59 Last Admin: 08/09/17 08:56 Dose: 20 units Lactobacillus Rhamnosus (Culturelle 15b) 1 each PO DAILY DEVAUGHN Stop: 10/06/17 08:59 Last Admin: 08/09/17 08:46 Dose: 1 each Lorazepam (Ativan) 1 mg PO Q4HR PRN; Protocol PRN Reason: Anxiety Stop: 10/04/17 23:58 Last Admin: 08/06/17 20:52 Dose: 1 mg Magnesium Hydroxide (Milk Of Magnesia) 30 ml PO HS PRN PRN Reason: Constipation Stop: 10/04/17 23:58 Miscellaneous (Probiotic Screen) 1 ea [facility] PRN PRN PRN Reason: PROTOCOL Stop: 10/05/17 15:14 Miscellaneous (Vte Chemical Prophylaxis Screen/ Admission) 1 ea [facility] PRN PRN PRN Reason: PROTOCOL Stop: 10/05/17 17:11 Pantoprazole Sodium (Protonix) 40 mg PO QDAC DEVAUGHN Stop: 10/05/17 07:29 Last Admin: 08/09/17 08:50 Dose: Not Given Trazodone HCl (Desyrel) 100 mg PO HS DEVAUGHN PRN Reason: Protocol Stop: 10/05/17 20:59 Last Admin: 08/08/17 21:27 Dose: 100 mg General: weak, alert HEENT: NC/AT, PERRLA Neck: Supple Lungs: CTAB Cardiovascular: RRR, Normal S1, Normal S2 Abdomen: soft, non-tender, non-distended, positive bowel sound Extremities: excoriation Neurological: no change Internal Medicine Assmt/Plan - Assessment Assessment: Dehydration (Acute) E86.0 Diabetes (Acute) E11.9 Hypokalemia (Acute) E87.6 Hyponatremia (Acute) E87.1 h/o schizophrenia (Acute) history of psychotic disorder (Acute) history of severe depression (Acute) - Plan Plan: continue ivf for hydration follow up labs in am continue current plan of care
[2017-08-09] MEDS: cefTRIAXone 1 GM in Sodium Chloride 0.9% 50 ML IV SCH (21:40)
[2017-08-09] MEDS: Sodium Chloride 0.9% 1,000 ML IV SCH (21:49)
--- NOTE | 2017-08-10 00:44 | Consultation ---
DATE OF CONSULTATION: 08/09/[address] Crawford. IDENTIFYING INFORMATION: The patient is a 61-year-old female. HISTORY OF PRESENT ILLNESS: I was asked to see this patient who was admitted with schizoaffective disorder. The patient herself was a poor historian. She was internally preoccupied, eating her food. She was selective about answering question, but she denies any intent to harm herself or anybody, but she says sometimes she would like to fight with people. The patient was brought from a nursing facility because of increasing confusion and generalized weakness. The patient denies any current auditory or visual hallucination. PAST PSYCHIATRIC HISTORY: Schizoaffective disorder with multiple prior admissions to this facility and other facility because of schizoaffective disorder. The patient was not answering my questions if she has tried to harm herself in the past. ALLERGIES: The patient has no known drug allergies. MEDICATIONS: She has been on Abilify 30 mg a day and trazodone 100 mg at bedtime, duloxetine 30 mg daily. She is diagnosed with dehydration, urinary tract infection. She was seen by Infectious Disease. Also dementia, osteoarthritis, hypertension, vitamin D deficiency, iron deficiency, and diabetes mellitus. FAMILY AND SOCIAL HISTORY: The patient lives in [facility] facility. She does not give me any other information. However, although I know her from previous admissions, unable to get more information regarding family history. MENTAL STATUS EXAMINATION: The patient was appropriately dressed, appropriately groomed. She was feeding herself. She was alert. She was unable to tell me the date exactly, unable to tell me why she is here. She denies any auditory or visual hallucinations. For some time, she would like fighting with people, but denies an intent to harm anyone. Unable to test her memory as she was uncooperative. Her insight and judgment is chronically impaired. I recommend to continue medications. Dr. Crawford will follow up with her. Thank you very much for allowing me to participate in the care of this most interesting lady. JOB# [id number]
--- NOTE | 2017-08-10 01:41 | Infectious Disease Prog Note ---
Infectious Disease Subjective - Review of Systems Service Date: 08/09/17 Subjective: Doing better. Infectious Disease Objective - Results Result Diagrams: 08/06/17 06:00 08/06/17 06:00 Recent Labs: Laboratory Last Values WBC 9.1 Th/cmm (4.8-10.8) D 08/06/17 06:00 RBC 4.18 Mil/cmm (3.80-5.10) 08/06/17 06:00 Hgb 12.5 gm/dL (12-16) 08/06/17 06:00 Hct 36.8 % (41.0-60) L 08/06/17 06:00 MCV 88.2 fl (81-100) 08/06/17 06:00 MCH 29.9 pg (27.0-31.0) 08/06/17 06:00 MCHC Differential 33.9 pg (28.0-36.0) 08/06/17 06:00 RDW 12.6 % (11.5-20.0) 08/06/17 06:00 Plt Count 96 Th/cmm (150-400) L D 08/06/17 06:00 MPV 7.4 fl 08/06/17 06:00 Neutrophils % 81.7 % (40.0-80.0) H 08/06/17 06:00 Lymphocytes % 7.5 % (20.0-50.0) L 08/06/17 06:00 Monocytes % 9.1 % (2.0-10.0) 08/06/17 06:00 Eosinophils % 1.4 % (0.0-5.0) 08/06/17 06:00 Basophils % 0.3 % (0.0-2.0) 08/06/17 06:00 Sodium 134 mEq/L (136-145) L 08/06/17 06:00 Potassium 4.2 mEq/L (3.5-5.1) 08/06/17 06:00 Chloride 101 mEq/L (98-107) 08/06/17 06:00 Carbon Dioxide 25.1 mEq/L (21.0-31.0) 08/06/17 06:00 Anion Gap 12.1 (7.0-16.0) 08/06/17 06:00 BUN 23 mg/dL (7-25) 08/06/17 06:00 Creatinine 0.9 mg/dL (0.6-1.2) 08/06/17 06:00 Est GFR ( Amer) > 60.0 ml/min (>90) 08/06/17 06:00 Est GFR (Non-Af Amer) > 60.0 ml/min 08/06/17 06:00 BUN/Creatinine Ratio 25.6 08/06/17 06:00 Glucose 232 mg/dL (70-105) H D 08/06/17 06:00 POC Glucose 134 MG/DL (70 - 105) H 08/09/17 06:30 Hemoglobin A1c % 9.1 % (4.0-6.0) H 08/06/17 06:30 Calcium 8.6 mg/dL (8.6-10.3) 08/06/17 06:00 Total Bilirubin 0.3 mg/dL (0.3-1.0) 08/05/17 16:15 AST 24 U/L (13-39) 08/05/17 16:15 ALT 18 U/L (7-52) 08/05/17 16:15 Alkaline Phosphatase 112 U/L (34-104) H 08/05/17 16:15 Total Protein 7.3 gm/dL (6.0-8.3) 08/05/17 16:15 Albumin 4.2 gm/dL (3.7-5.3) 08/05/17 16:15 Globulin 3.1 gm/dL 08/05/17 16:15 Albumin/Globulin Ratio 1.4 (1.0-1.8) 08/05/17 16:15 Triglycerides 112 mg/dL (<150) 08/06/17 06:00 Cholesterol 152 mg/dL (<200) 08/06/17 06:00 LDL Cholesterol Direct 64 mg/dL (75-193) L 08/06/17 06:00 HDL Cholesterol 69 mg/dL (23-92) 08/06/17 06:00 TSH 3.59 uIU/ml (0.34-5.60) 08/05/17 16:15 Urine Source RANDOM 08/05/17 19:25 Urine Color YELLOW 08/05/17 19:25 Urine Clarity CLEAR (CLEAR) 08/05/17 19:25 Urine pH 6.5 (4.6 - 8.0) 08/05/17 19:25 Ur Specific [place] 1.010 (1.005-1.030) 08/05/17 19:25 Urine Protein NEGATIVE mg/dL (NEGATIVE) 08/05/17 19:25 Urine Glucose (UA) NEGATIVE mg/dL (NEGATIVE) 08/05/17 19:25 Urine Ketones NEGATIVE mg/dL (NEGATIVE) 08/05/17 19:25 Urine Blood NEGATIVE (NEGATIVE) 08/05/17 19:25 Urine Nitrate POSITIVE (NEGATIVE) H 08/05/17 19:25 Urine Bilirubin NEGATIVE (NEGATIVE) 08/05/17 19:25 Urine Urobilinogen 0.2 E.U./dL (0.2 - 1.0) 08/05/17 19:25 Ur Leukocyte Esterase SMALL (NEGATIVE) H 08/05/17 19:25 Urine RBC NONE SEEN /hpf (0-5) 08/05/17 19:25 Urine WBC 25-50 /hpf (0-5) H 08/05/17 19:25 Ur Epithelial Cells NONE SEEN /lpf (FEW) 08/05/17 19:25 Urine Bacteria MODERATE /hpf (NONE SEEN) H 08/05/17 19:25 - Physical Exam Vitals and I&O: Vital Signs Temp 98.6 F 08/10/17 00:00 Pulse 68 08/10/17 00:00 Resp 17 08/10/17 00:00 BP 142/87 08/10/17 00:00 Pulse Ox 98 08/10/17 00:00 Intake & Output 08/09/17 08/09/17 08/10/17 06:59 18:59 06:59 Intake Total 600 1600 Balance 600 1600 Weight (lbs) 54.431 kg 54.431 kg Intake: Intake, IV Amount 50 [id number] 1 gm In 50 Sodium Chloride 0.9% 50 ml @ 100 mls/hr IV Q24HR [facility] Rx#:[id number] Oral 550 1600 Other: # Voids 4 5 # Bowel Movements 0 1 Active Medications: Current Medications Acetaminophen (Tylenol) 650 mg PO Q4H PRN PRN Reason: Mild-Moderate Pain or T >101 Stop: 10/04/17 23:58 Acetaminophen (Tylenol Extra Strength) 500 mg PO Q4H PRN PRN Reason: Pain (Moderate) Stop: 10/04/17 23:58 Al Hydrox/Mg Hydrox/Simethicone (Maalox) 30 ml PO Q4HR PRN PRN Reason: GI DISTRESS Stop: 10/04/17 23:58 Aripiprazole (Abilify) 30 mg PO HS [facility] Stop: 10/05/17 20:59 Last Admin: 08/09/17 20:30 Dose: 30 mg Carvedilol (Coreg) 12.5 mg PO BID [facility] Stop: 10/05/17 08:59 Last Admin: 08/09/17 17:10 Dose: 12.5 mg Duloxetine HCl (Cymbalta) 30 mg PO DAILY [facility] PRN Reason: Protocol Stop: 10/05/17 08:59 Last Admin: 08/09/17 08:48 Dose: 30 mg Ergocalciferol (Vitamin D) 50,000 iu PO QWED [facility] Stop: 10/09/17 08:59 Ferrous Sulfate (Iron) 325 mg PO DAILY [facility] Stop: 10/05/17 08:59 Last Admin: 08/09/17 08:46 Dose: 325 mg Fish Oil ([place] 3) 1,000 mg PO DAILY [facility] Stop: 10/05/17 08:59 Last Admin: 08/09/17 08:49 Dose: 1,000 mg Gabapentin (Neurontin) 800 mg PO Q8HR [facility] Stop: 10/05/17 04:59 Last Admin: 08/09/17 20:54 Dose: 800 mg Ceftriaxone Sodium 1 gm/ (Sodium Chloride) 50 mls @ 100 mls/hr IV Q24HR [facility] Stop: 10/05/17 20:59 Last Admin: 08/09/17 21:40 Dose: 100 mls/hr Sodium Chloride (Nacl 0.9%) 1,000 mls @ 125 mls/hr IV .Q8H [facility] Stop: 10/04/17 20:44 Last Admin: 08/09/17 21:49 Dose: 125 mls/hr Insulin Aspart (Novolog Insulin Sliding Scale) 0 units SUBQ ACHS [facility] PRN Reason: Protocol Stop: 10/05/17 07:29 Last Admin: 08/09/17 20:46 Dose: 4 units Insulin Detemir (Levemir Insulin) 20 units SUBQ Q12HR [facility] PRN Reason: Protocol Stop: 10/05/17 08:59 Last Admin: 08/09/17 20:47 Dose: Not Given Lactobacillus Rhamnosus (Culturelle 15b) 1 each PO DAILY [facility] Stop: 10/06/17 08:59 Last Admin: 08/09/17 08:46 Dose: 1 each Lorazepam (Ativan) 1 mg PO Q4HR PRN; Protocol PRN Reason: Anxiety Stop: 10/04/17 23:58 Last Admin: 08/06/17 20:52 Dose: 1 mg Magnesium Hydroxide (Milk Of Magnesia) 30 ml PO HS PRN PRN Reason: Constipation Stop: 10/04/17 23:58 Miscellaneous (Probiotic Screen) 1 ea [facility] PRN PRN PRN Reason: PROTOCOL Stop: 10/05/17 15:14 Miscellaneous (Vte Chemical Prophylaxis Screen/ Admission) 1 ea [facility] PRN PRN PRN Reason: PROTOCOL Stop: 10/05/17 17:11 Pantoprazole Sodium (Protonix) 40 mg PO QDAC [facility] Stop: 10/05/17 07:29 Last Admin: 08/09/17 08:50 Dose: Not Given Trazodone HCl (Desyrel) 100 mg PO HS [facility] PRN Reason: Protocol Stop: 10/05/17 20:59 Last Admin: 08/09/17 20:54 Dose: 100 mg General: no acute distress, well developed, well nourished HEENT: atraumatic, normocephalic, PERRLA Neck: supple, no thyromegaly Cardiovascular: S1S2, regular Lungs: clear to auscultation bilaterally, clear to percussion, crackles Abdomen: soft, no tender, no distended, no mass, no hepatomegaly Extremities: no cyanosis, no clubbing, no edema Neurological: awake, alert, oriented Skin: intact Infectious Disease Assmt/Plan - Problem List Patient Problems: All Active Problems Dehydration (Acute) E86.0 Diabetes (Acute) E11.9 Hypokalemia (Acute) E87.6 Hyponatremia (Acute) E87.1 h/o schizophrenia (Acute) history of psychotic disorder (Acute) history of severe depression (Acute) - Assessment Assessment: 1. UTI. 2. HTN. 3. DM. 4. PUD/GERD. 5. Dementia - Plan Plan: Continue rocephin.
[2017-08-10] MEDS: Sodium Chloride 0.9% 1,000 ML IV SCH (06:43)
[2017-08-10] MEDS: INSULIN ASPART SLIDING SCALE 100 UNITS/ML UNIT SUBQ SCH ×2 (07:14→12:07)
[2017-08-10] MEDS: Pantoprazole 40 mg EC Tab PO SCH (07:14)
[2017-08-10 08:01] LABS: % BASOPHILS 0.8 % (0.0-2.0); % EOSINOPHILS 7.3 % (0.0-5.0); % MONOCYTES 10.6 % (2.0-10.0); % NEUTROPHILS 53.3 % (40.0-80.0); EOSINOPHILE ABSOLUTE 0.4 Th/cmm (0.1-0.4); HEMOGLOBIN 12.2 gm/dL (12-16); LYMPHOCYTE ABSOLUTE 1.4 Th/cmm (1.5-3.0); MEAN CELL VOLUME 87.6 fl (81-100); MEAN CORPUSCULAR HEMOGLOBIN 29.6 pg (27.0-31.0); MEAN CORPUSCULAR HGB CONC 33.7 pg (28.0-36.0); MEAN PLATELET VOLUME 7.2 fl; MONOCYTE ABSOLUTE 0.5 Th/cmm (0.3-1.0); NEUTROPHILE ABSOLUTE 2.7 Th/cmm (1.8-8.0); RED BLOOD COUNT 4.11 Mil/cmm (3.80-5.10); RED CELL DISTRIBUTION WIDTH 12.7 % (11.5-20.0)
[2017-08-10 08:05] LABS: PLATELET COUNT 124 Th/cmm (150-400)
[2017-08-10 08:31] LABS: ANION GAP 11.2 (7.0-16.0); BUN - UREA NITROGEN 18 mg/dL (7-25); CALCIUM SERUM 9.5 mg/dL (8.6-10.3); CARBON DIOXIDE 26.2 mEq/L (21.0-31.0); CHLORIDE 101 mEq/L (98-107); CREATININE - SERUM 0.9 mg/dL (0.6-1.2); GFR AFRICAN-AMERICAN > 60.0 ml/min (>90); GFR NON AFRICAN-AMERICAN > 60.0 ml/min; GLUCOSE 286 mg/dL (70-105); POTASSIUM SERUM 4.4 mEq/L (3.5-5.1); SODIUM SERUM 134 mEq/L (136-145)
[2017-08-10] MEDS: Lactobacillus Rhamnosus GG 15 Billion CFU CAP.SPRINK PO SCH (10:02)
[2017-08-10] MEDS: Ferrous Sulfate 325 MG TAB PO SCH (10:02)
[2017-08-10] MEDS: Fish Oil 1,000 MG SGL PO SCH (10:02)
[2017-08-10] MEDS: Insulin Detemir 100 units/mL 10mL Vial SUBQ SCH (10:03)
--- NOTE | 2017-08-10 11:52 | General Progress Note ---
Subjective - Review of Systems Events since last encounter: no distress pateint doing well Objective - Results Result Diagrams: 08/10/17 07:45 08/10/17 07:45 Recent Labs: Laboratory Last Values WBC 5.0 Th/cmm (4.8-10.8) D 08/10/17 07:45 RBC 4.11 Mil/cmm (3.80-5.10) 08/10/17 07:45 Hgb 12.2 gm/dL (12-16) 08/10/17 07:45 Hct 36.0 % (41.0-60) L 08/10/17 07:45 MCV 87.6 fl (81-100) 08/10/17 07:45 MCH 29.6 pg (27.0-31.0) 08/10/17 07:45 MCHC Differential 33.7 pg (28.0-36.0) 08/10/17 07:45 RDW 12.7 % (11.5-20.0) 08/10/17 07:45 Plt Count 124 Th/cmm (150-400) L D 08/10/17 07:45 MPV 7.2 fl 08/10/17 07:45 Neutrophils % 53.3 % (40.0-80.0) 08/10/17 07:45 Lymphocytes % 28.0 % (20.0-50.0) 08/10/17 07:45 Monocytes % 10.6 % (2.0-10.0) H 08/10/17 07:45 Eosinophils % 7.3 % (0.0-5.0) H 08/10/17 07:45 Basophils % 0.8 % (0.0-2.0) 08/10/17 07:45 Sodium 134 mEq/L (136-145) L 08/10/17 07:45 Potassium 4.4 mEq/L (3.5-5.1) 08/10/17 07:45 Chloride 101 mEq/L (98-107) 08/10/17 07:45 Carbon Dioxide 26.2 mEq/L (21.0-31.0) 08/10/17 07:45 Anion Gap 11.2 (7.0-16.0) 08/10/17 07:45 BUN 18 mg/dL (7-25) 08/10/17 07:45 Creatinine 0.9 mg/dL (0.6-1.2) 08/10/17 07:45 Est GFR ( Amer) > 60.0 ml/min (>90) 08/10/17 07:45 Est GFR (Non-Af Amer) > 60.0 ml/min 08/10/17 07:45 BUN/Creatinine Ratio 20.0 08/10/17 07:45 Glucose 286 mg/dL (70-105) H 08/10/17 07:45 POC Glucose 134 MG/DL (70 - 105) H 08/09/17 06:30 Hemoglobin A1c % 9.1 % (4.0-6.0) H 08/06/17 06:30 Calcium 9.5 mg/dL (8.6-10.3) 08/10/17 07:45 Total Bilirubin 0.3 mg/dL (0.3-1.0) 08/05/17 16:15 AST 24 U/L (13-39) 08/05/17 16:15 ALT 18 U/L (7-52) 08/05/17 16:15 Alkaline Phosphatase 112 U/L (34-104) H 08/05/17 16:15 Total Protein 7.3 gm/dL (6.0-8.3) 08/05/17 16:15 Albumin 4.2 gm/dL (3.7-5.3) 08/05/17 16:15 Globulin 3.1 gm/dL 08/05/17 16:15 Albumin/Globulin Ratio 1.4 (1.0-1.8) 08/05/17 16:15 Triglycerides 112 mg/dL (<150) 08/06/17 06:00 Cholesterol 152 mg/dL (<200) 08/06/17 06:00 LDL Cholesterol Direct 64 mg/dL (75-193) L 08/06/17 06:00 HDL Cholesterol 69 mg/dL (23-92) 08/06/17 06:00 TSH 3.59 uIU/ml (0.34-5.60) 08/05/17 16:15 Urine Source RANDOM 08/05/17 19:25 Urine Color YELLOW 08/05/17 19:25 Urine Clarity CLEAR (CLEAR) 08/05/17 19:25 Urine pH 6.5 (4.6 - 8.0) 08/05/17 19:25 Ur Specific [place] 1.010 (1.005-1.030) 08/05/17 19:25 Urine Protein NEGATIVE mg/dL (NEGATIVE) 08/05/17 19:25 Urine Glucose (UA) NEGATIVE mg/dL (NEGATIVE) 08/05/17 19:25 Urine Ketones NEGATIVE mg/dL (NEGATIVE) 08/05/17 19:25 Urine Blood NEGATIVE (NEGATIVE) 08/05/17 19:25 Urine Nitrate POSITIVE (NEGATIVE) H 08/05/17 19:25 Urine Bilirubin NEGATIVE (NEGATIVE) 08/05/17 19:25 Urine Urobilinogen 0.2 E.U./dL (0.2 - 1.0) 08/05/17 19:25 Ur Leukocyte Esterase SMALL (NEGATIVE) H 08/05/17 19:25 Urine RBC NONE SEEN /hpf (0-5) 08/05/17 19:25 Urine WBC 25-50 /hpf (0-5) H 08/05/17 19:25 Ur Epithelial Cells NONE SEEN /lpf (FEW) 08/05/17 19:25 Urine Bacteria MODERATE /hpf (NONE SEEN) H 08/05/17 19:25 - Physical Exam Vitals and I&O: Vital Signs Temp 97.0 F 08/10/17 08:00 Pulse 63 08/10/17 10:03 Resp 17 08/10/17 08:00 BP 123/69 08/10/17 10:03 Pulse Ox 100 08/10/17 08:00 Intake & Output 08/09/17 08/10/17 08/10/17 18:59 06:59 18:59 Intake Total 1600 1000 Balance 1600 1000 Weight (lbs) 54.431 kg 65.363 kg Intake: Intake, IV Amount 1000 Sodium Chloride 0.9% 1, 1000 000 ml @ 125 mls/hr IV . Q8H [facility] Rx#:[id number] Oral 1600 Other: # Voids 5 # Bowel Movements 1 Active Medications: Current Medications Acetaminophen (Tylenol) 650 mg PO Q4H PRN PRN Reason: Mild-Moderate Pain or T >101 Stop: 10/04/17 23:58 Acetaminophen (Tylenol Extra Strength) 500 mg PO Q4H PRN PRN Reason: Pain (Moderate) Stop: 10/04/17 23:58 Al Hydrox/Mg Hydrox/Simethicone (Maalox) 30 ml PO Q4HR PRN PRN Reason: GI DISTRESS Stop: 10/04/17 23:58 Aripiprazole (Abilify) 30 mg PO HS [facility] Stop: 10/05/17 20:59 Last Admin: 08/09/17 20:30 Dose: 30 mg Carvedilol (Coreg) 12.5 mg PO BID [facility] Stop: 10/05/17 08:59 Last Admin: 08/10/17 10:03 Dose: 12.5 mg Duloxetine HCl (Cymbalta) 30 mg PO DAILY [facility] PRN Reason: Protocol Stop: 10/05/17 08:59 Last Admin: 08/10/17 10:01 Dose: 30 mg Ergocalciferol (Vitamin D) 50,000 iu PO QWED [facility] Stop: 10/09/17 08:59 Last Admin: 08/10/17 10:00 Dose: 50,000 iu Ferrous Sulfate (Iron) 325 mg PO DAILY [facility] Stop: 10/05/17 08:59 Last Admin: 08/10/17 10:02 Dose: 325 mg Fish Oil ([place] 3) 1,000 mg PO DAILY [facility] Stop: 10/05/17 08:59 Last Admin: 08/10/17 10:02 Dose: 1,000 mg Gabapentin (Neurontin) 800 mg PO Q8HR [facility] Stop: 10/05/17 04:59 Last Admin: 08/10/17 06:43 Dose: Not Given Ceftriaxone Sodium 1 gm/ (Sodium Chloride) 50 mls @ 100 mls/hr IV Q24HR [facility] Stop: 10/05/17 20:59 Last Admin: 08/09/17 21:40 Dose: 100 mls/hr Sodium Chloride (Nacl 0.9%) 1,000 mls @ 125 mls/hr IV .Q8H [facility] Stop: 10/04/17 20:44 Last Admin: 08/10/17 06:43 Dose: 125 mls/hr Insulin Aspart (Novolog Insulin Sliding Scale) 0 units SUBQ ACHS [facility] PRN Reason: Protocol Stop: 10/05/17 07:29 Last Admin: 08/10/17 07:14 Dose: 6 units Insulin Detemir (Levemir Insulin) 20 units SUBQ Q12HR [facility] PRN Reason: Protocol Stop: 10/05/17 08:59 Last Admin: 01/17/18 10:03 Dose: 20 units Lactobacillus Rhamnosus (Culturelle 15b) 1 each PO DAILY [facility] Stop: 10/06/17 08:59 Last Admin: 08/10/17 10:02 Dose: 1 each Lorazepam (Ativan) 1 mg PO Q4HR PRN; Protocol PRN Reason: Anxiety Stop: 10/04/17 23:58 Last Admin: 08/06/17 20:52 Dose: 1 mg Magnesium Hydroxide (Milk Of Magnesia) 30 ml PO HS PRN PRN Reason: Constipation Stop: 10/04/17 23:58 Miscellaneous (Probiotic Screen) 1 ea MC PRN PRN PRN Reason: PROTOCOL Stop: 10/05/17 15:14 Miscellaneous (Vte Chemical Prophylaxis Screen/ Admission) 1 ea MC PRN PRN PRN Reason: PROTOCOL Stop: 10/05/17 17:11 Pantoprazole Sodium (Protonix) 40 mg PO QDAC [facility] Stop: 10/05/17 07:29 Last Admin: 08/10/17 07:14 Dose: 40 mg Trazodone HCl (Desyrel) 100 mg PO HS [facility] PRN Reason: Protocol Stop: 10/05/17 20:59 Last Admin: 08/09/17 20:54 Dose: 100 mg General: No acute distress HEENT: Atraumatic Neck: Supple Cardiovascular: Regular rate, Normal S1, Normal S2 Abdomen: Bowel sounds, Soft, Tender Assessment/Plan - Problem List Patient Problems: All Active Problems Dehydration (Acute) E86.0 Diabetes (Acute) E11.9 Hypokalemia (Acute) E87.6 Hyponatremia (Acute) E87.1 h/o schizophrenia (Acute) history of psychotic disorder (Acute) history of severe depression (Acute) - Plan Plan: antibiotics monitor vitals/diet labs f/up consultants
== END 2017-08-10 20:30 | disposition home or self-care (01) | DRG 689 ==
LOC: ER 15:46 → MSI 20:48 → UNDODISIN 08-10 17:00
PROVIDERS: ADMIT Internal Medicine; ATTEND Internal Medicine
DX: N39.0 Urinary tract infection, site not specified (principal); G92 Toxic encephalopathy; F25.9 Schizoaffective disorder, unspecified; E87.1 Hypo-osmolality and hyponatremia; E55.9 Vitamin D deficiency, unspecified; D50.9 Iron deficiency anemia, unspecified; E11.9 Type 2 diabetes mellitus without complications; E86.0 Dehydration; F03.90 Unspecified dementia, unspecified severity, without behavioral disturbance, psychotic disturbance, mood disturbance, and anxiety; M19.90 Unspecified osteoarthritis, unspecified site; I10 Essential (primary) hypertension; K21.9 Gastro-esophageal reflux disease without esophagitis; K27.9 Peptic ulcer, site unspecified, unspecified as acute or chronic, without hemorrhage or perforation; F41.9 Anxiety disorder, unspecified; E87.6 Hypokalemia; Z95.0 Presence of cardiac pacemaker; Z79.4 Long term (current) use of insulin
CPT/HCPCS: 36415-UA; 71010-TC; 76770-TC; 80048-TC; 80053-TC; 80061-TC; 81001-TC; 82948-90; 83036-90; 84443-TC; 85007-TC; 85025-TC; 85027-TC; 87086-90; 93005; J0696; J1815; J7030; Z7610

== ENCOUNTER 2017-09-11 16:41 | Inpatient (IN) | payer MEDICARE ==
[2017-09-11] MEDS ORDERED: Pantoprazole 40 mg EC Tab PO STA (17:37)
[2017-09-11 17:55] LABS: % BASOPHILS 0.9 % (0.0-2.0); % EOSINOPHILS 1.5 % (0.0-5.0); % LYMPHOCYTES 31.6 % (20.0-50.0); % MONOCYTES 9.6 % (2.0-10.0); % NEUTROPHILS 56.4 % (40.0-80.0); EOSINOPHILE ABSOLUTE 0.1 Th/cmm (0.1-0.4); HEMATOCRIT 34.2 % (41.0-60); HEMOGLOBIN 11.8 gm/dL (12-16); LYMPHOCYTE ABSOLUTE 1.6 Th/cmm (1.5-3.0); MEAN CELL VOLUME 86.5 fl (81-100); MEAN CORPUSCULAR HEMOGLOBIN 29.8 pg (27.0-31.0); MEAN CORPUSCULAR HGB CONC 34.5 pg (28.0-36.0); MEAN PLATELET VOLUME 6.9 fl; MONOCYTE ABSOLUTE 0.5 Th/cmm (0.3-1.0); NEUTROPHILE ABSOLUTE 2.8 Th/cmm (1.8-8.0); RED BLOOD COUNT 3.95 Mil/cmm (3.80-5.10)
[2017-09-11 17:56] LABS: PLATELET COUNT 214 Th/cmm (150-400)
[2017-09-11] MEDS ORDERED: Pantoprazole 40 mg EC Tab PO ONE (18:02)
[2017-09-11 18:07] LABS: URINE MICROSCOPIC INDICATED? YES; URINE SOURCE MIDSTREAM
[2017-09-11 18:10] LABS: URINE BILIRUBIN NEGATIVE (NEGATIVE); URINE BLOOD NEGATIVE (NEGATIVE); URINE GLUCOSE (UA) >=1000 mg/dL (NEGATIVE); URINE KETONE NEGATIVE (NEGATIVE); URINE LEUKOCYTE ESTERASE NEGATIVE (NEGATIVE); URINE NITRATE NEGATIVE (NEGATIVE); URINE PH 5.5 (4.6 - 8.0); URINE PROTEIN NEGATIVE (NEGATIVE); URINE UROBILINOGEN 0.2 E.U./dL (0.2 - 1.0)
[2017-09-11] MEDS ORDERED: Acetaminophen 500 MG TAB PO ONE (18:14)
[2017-09-11] MEDS ORDERED: Sodium Chloride 0.9% 250 ML IV ONE (18:15)
[2017-09-11] MEDS ORDERED: NITROGLYCERIN SPRAY 4.9 GM SL STA (18:15)
[2017-09-11 18:16] LABS: URINE CLARITY CLEAR (CLEAR); URINE COLOR YELLOW; URINE RBC 0-1 /hpf (0-5)
[2017-09-11 18:17] LABS: ALB/GLOB RATIO 1.2 (1.0-1.8); ALBUMIN 3.7 gm/dL (3.7-5.3); ALKALINE PHOSPHATASE 167 U/L (34-104); ANION GAP 11.7 (7.0-16.0); BILIRUBIN,TOTAL 0.5 mg/dL (0.3-1.0); BUN - UREA NITROGEN 19 mg/dL (7-25); CALCIUM SERUM 9.7 mg/dL (8.6-10.3); CARBON DIOXIDE 28.2 mEq/L (21.0-31.0); CHLORIDE 95 mEq/L (98-107); CHOLESTEROL 202 mg/dL (<200); CREATININE - SERUM 1.1 mg/dL (0.6-1.2); GFR AFRICAN-AMERICAN > 60.0 ml/min (>90); GFR NON AFRICAN-AMERICAN 53.3 ml/min; GLUCOSE 322 mg/dL (70-105); HDL -HIGH DENSITY LIPOPROTEIN 71 mg/dL (23-92); MAGNESIUM 2.3 mg/dL (1.9-2.7); POTASSIUM SERUM 3.9 mEq/L (3.5-5.1); SGOT 24 U/L (13-39); SGPT/ALT 27 U/L (7-52); SODIUM SERUM 131 mEq/L (136-145); TOTAL PROTEIN,SERUM 6.8 gm/dL (6.0-8.3); TRIGLYCERIDES 140 mg/dL (<150)
[2017-09-11 18:17] LABS: URINE BACTERIA FEW /hpf (NONE SEEN); URINE EPITHELIAL CELLS OCCASIONAL /lpf (FEW)
[2017-09-11] MEDS ORDERED: Sodium Chloride 0.9% 500 ML IV ONE (18:43)
--- NOTE | 2017-09-11 18:44 | ER Physician Documentation ---
DATE OF SERVICE: 09/11/2017 I just saw the lab results of Dr. Stroud's patient. The lab result shows white count to be 5000, hemoglobin 11.8, hematocrit 34.2, platelet count 214, neutrophils 56.4, lymphocytes 31.6. Electrolytes showed sodium 131, potassium 3.9, chloride is 95, BUN is 19, creatinine 1.1, BUN and creatinine ratio is 17.3, glucose is 332 and calcium is 9.7, magnesium is 2.3. AST is 24, ALT is 27, alkaline phosphatase 167, total protein is 6.8, albumin 3.7, globulin 3.1. Triglycerides 140. Cholesterol is 202, LDL is 113, HDL is 71. The patient had a urine examination done which showed the patient had more than 1000 mg glucose present. That means because of diabetes mellitus, she is spilling, but she is not spilling protein fortunately proper because she has been given some either RYDER inhibitor or either Avapro or lisinopril or one of those group of drug. So considering this, will give a call to Dr. Stroud and he is going to decide what further to be done. Most likely, the patient might need to be admitted. The patient will be given some IV fluids and patient has been ordered some glucose tray and patient has LDL up 113. We will give the patient some Lipitor tablets and IV fluids, etc. will be ordered by Dr. Stroud. JOB# [id number]
--- NOTE | 2017-09-11 19:53 | ER Physician Documentation ---
DATE OF SERVICE: 09/11/2017 Emergency Room evaluation and treatment for patient of Dr. Stroud who referred this patient to this institution because he found that the patient has a blood sugar that was detected in the past few hours ago that it was in the 500 mg range. The patient was given some insulin, but exactly what was given is not known. The patient came from [facility]. She came ER at 1645 p.m. The patient was triaged by one of our nurses. The patient has the following problems. HISTORY OF PRESENT ILLNESS: The patient is a diabetic patient. She is known to have dementia. She is known to have schizoaffective disorder. The patient has a history of hypertension. The patient has a permanent pacemaker on the left side of the chest many years ago at [facility]. The patient has a history of neuropathy. There is a diabetic neuropathy very likely. The patient has osteoarthritis, iron deficiency anemia. The patient does not have any G-tube. The patient does not have any Wills catheter placement done. The patient has diabetes mellitus. FAMILY HISTORY: The patient has a mother who is alive. Father is alive, but he is to somebody else. One brother is also to somebody else according to her. When I asked her whether they would come and see her, to say if I ask her, they would come but they usually do not like the hospital circumstances. The patient was here in this hospital. The patient was ordered some medications to be given and by mistake it was ordered that to be given by G-tube, but I think magnesium. Protonix needs to be stopped, I wrote it down. HISTORY OF PRESENT ILLNESS: Other than this, the patient is not very, very communicative. She does communicate, but there is some difficulty in understanding the patient too. The patient's history of present illness is essentially she does not have any burning, frequency, dysuria. There is diabetes that became uncontrolled. According to her, the patient is taking her medications given to her. REVIEW OF SYSTEMS: The patient is very difficult in mentioning the things were what she said as far as the neuro status that she does not have any stroke or paralysis or blindness, but she comes with dementia diagnosis and schizoaffective disorder. Bones and joints, she has history of osteoarthritis. GI: No history of diarrhea, no history of constipation. Endocrine santana, the patient has vitamin D deficiency. She has iron deficiency. Heart santana, the patient has a permanent pacemaker on the left side of the chest inserted many years ago somewhere in [facility]. On review of cardiac system the patient has no angina pectoris, no myocardial infarction, no rheumatic fever. Does not have any sick sinus syndrome. She denies any heart attack. GI: No history of any nausea, vomiting, gastroesophageal reflux disease. PAST MEDICAL HISTORY: Includes that she did have urinary tract infection in the past, history of dehydration in the past, schizoaffective disorder, hypertension, vitamin D deficiency, iron deficiency anemia and diabetes mellitus. Other past specified history includes the patient has some muscle wasting and atrophic problem. The patient has diabetic polyneuropathy, essential hypertension; anemia, unspecified; major depressive disorder, recurrent, unspecified; unspecified dementia without behavioral disturbances. She has some bipolar type disorder and GERD with esophagitis. Dr. Stroud today around 2:15 p.m. called here to transfer the patient because the patient's blood sugar was close to 500 mg level, but here after coming one of our nurse Jorge checked it and it was close to 301. The patient was referred here by Dr. Maximus Gayle. ALLERGIES: None known. Medication santana, she did take flu vaccination and patient in the past has serum ferritin level, which was 48, which is in the lower limit of normal, then she must be in iron deficiency anemia. Her ferritin level is also very low 47.8. Iron level was 48. She was admitted here in this hospital. Her date is 1955. Her lipid panel showed that her cholesterol was 180, triglyceride 180 and cholesterol HDL was 63. Hemoglobin A1c is 7.6, which is high. Estimated average glucose would be 171. On 04/13/2018 had this diagnostic laboratory where the lab was done showed white count of 4.98, hemoglobin 11.5, hematocrit is 35.3, platelet count of 134, neutrophils is 51.4. Calculated total cholesterol was 81 and random glucose measured on April 13 was 420, so she has a very labile diabetic mellitus status. BUN is 28, creatinine 1.38, so she has some mild renal chronic insufficiency. Her sodium was 137, potassium 4.2, chloride 97, CO2 of 29, calcium 9.6. BUN and creatinine ratio is 20.3. As I mentioned this was done on 04/13/2017, so these are the old results that I am reviewing. The current results are being ordered and will get it. Her clozapine level was 478 and her norclozapine level was 173. Her electrolytes were all within normal limits. White count was also normal, done on 09/07/2017 show she has plenty of lab workup done here. She was admitted here on 09/11/2017 and the diagnosis was considered to be hyperglycemic, that means diabetes mellitus. We should not say hyperglycemia, but just use the word diabetes mellitus, anytime blood sugar goes in that range, it is not considered hyperglycemia, it is usually considered as diabetes mellitus. The patient has a brother whose name is Floyd Yun, telephone number [phone], he is the brother. Dr. Stroud's telephone number is [phone], just only. The reason to send it is for past 1 week, the blood sugar has been ranging very high percentage level 400-500 mg percentage level, so Dr. Stroud referred the patient here for more stabilization and more control of the blood sugar. In the past admission, she was diagnosed to have urinary tract infection and other diagnosis that I had already mentioned to you. [facility]. Psychiatric history includes anxiety and schizoaffective disorder. Past GI history includes GERD. Other history includes hypertension, diabetes mellitus. Otherwise, family history is unremarkable. Her other medications that she is taking for the just record the main would be already will be ordered by Dr. Stroud. The patient was given Abilify 30 mg tablet. Ceftriaxone was given in the past. Coreg was given 1 tablet twice a day and lactobacillus rhamnosus 1 capsule by mouth in the morning, Cymbalta she is getting 30 mg and ferrous sulfate 325 mg in the morning for anemia, plus she gets fish oil, gabapentin 800 mg every 8 hours, insulin aspart as per the sliding scale, Levemir solution 10 units subcutaneously every day, Maalox, pantoprazole, trazodone 100 mg by mouth daily, Tylenol tablet, vitamin D3 tablet. On physical examination, the patient appears to be awake, alert, oriented. To me she appears to be answering some questions, some of which she does not understand. She does know where she is. She does know she is at [facility]. She does not know whether she was ever admitted over here. On examination, the triage nurse checked the vital signs showing temperature to be 96.3, respirations 16, blood pressure 141/74 and saturation of 99%, height of 5 feet 6 inches, weight 244 pounds. Last menstrual period was last month according to her . The patient does not have any meningeal signs. She appears to be pale. She is not in any acute cardiorespiratory distress. No edema, no cyanosis, no petechia, ecchymosis. She does not have any fevers, chills, or rigors. No meningeal signs. No edema. No evidence of any DVT. chest reveals trachea central. Fairly good air entry in both lung without any rales, rhonchi, or bronchial breathing. Central nervous system; the patient does not have any definite stroke besides depression, anxiety, psychiatric disorder, schizophrenic disorder. The patient does not have any major stroke status. Eyes appears to be normal. No jaundice is seen. No evidence of any ascites is noted. Abdomen is soft. Liver, spleen not enlarged. No free fluid in the abdominal cavity. Heart reveals no surgical scar in the chest. No deformity of the chest wall. Not an ICD device, but permanent pacemaker with two leads probably, but one cannot say for sure, years. EKG showing the patient is in sinus rhythm, so one cannot say for sure whether the patient has two leads and has atrial fibrillation, paroxysmal. EKG showing sinus rhythm and suggestion of old septal wall VT, left axis deviation. Heart reveals no third heart sound, no pericardial rub. GI is benign and negative. CLINICAL IMPRESSION: 1. The patient has uncontrolled diabetes mellitus, 557, 512, 385 and today when she came in it is 301. Other diagnoses include diabetic peripheral neuropathy. 2. Dementia. 3. Schizoaffective disorder. 4. I looked at the urine, appeared to be negative. The pain threshold that was written by the triage nurse shows 6/10, but to me she looks comfortably in the bed. The patient's other diagnosis includes degenerative joint disease, osteoarthritis. She has iron deficiency anemia. She has history of urinary tract infections in the past. The patient has a permanent pacemaker. 5. Mild renal insufficiency, episode. The plan is to get all the labs done and lactic acid to see if there is any infection anywhere present clinically. Lungs does not appear to be showing any evidence of failure or pneumonia. Heart does not show any evidence of congestive heart failure. Third heart sound seems to be absent, fourth heart sound is absent. First and second heart sound is normal. The patient has vitamin D3 deficiency. She has GERD. She has depression for which she takes trazodone. She takes some fish oil and gabapentin for peripheral neuropathy, insulin aspart 10 units daily, may need more. Perhaps, she may need combination of metformin with aspart insulin or insulin detemir, the patient takes it. The patient was taking lithium in the past, perhaps she may be having bipolar disorder, but the level of the insulin was 0.8, that is within normal limits. [place] has not affected the sodium, usually lithium bicarbonate can give rise to hyponatremia that should be kept in mind. The plan is to admit the patient, speak to Dr. Stroud. He will give some advice as far as how to manage this patient. need to be done, we will order it as needed. [facility]# [id number]
[2017-09-11] MEDS ORDERED: Sodium Chloride 0.9% 1,000 ML IV ONE (21:47)
[2017-09-11] MEDS ORDERED: Magnesium Hydroxide (MOM) 30 mL UDC PO PRN (21:59)
[2017-09-11] MEDS ORDERED: Maalox 30 mL Cup PO PRN (21:59)
[2017-09-12] MEDS ORDERED: INSULIN ASPART SLIDING SCALE 100 UNITS/ML UNIT SUBQ SCH (07:30)
--- NOTE | 2017-09-12 07:45 | Diagnostic Imaging Report ---
Portable chest x-ray HISTORY: Shortness of breath Compared with prior exam of August 05, 2017, heart size difficult to assess with portable technique and a poor inspiration. Cardiac electrode lead wires project over the right atrium and right ventricle. No focal pulmonary processes. Surgical hardware noted in the thoracic spine. IMPRESSION: 1. No acute pulmonary processes 2. Cardiac pacemaker placement 3. Surgical spinal changes
--- NOTE | 2017-09-12 08:12 | Consultation ---
DATE OF CONSULTATION: 09/11/2017 REQUESTING PHYSICIAN: Dr. Stroud. GENERAL PASSENGER AGENT: Dr. Crawford. TYPE OF THE REPORT: Psychiatric consult. REASON FOR THE CONSULT: Monitor psychotropic medications. HISTORY OF PRESENT ILLNESS: The patient is a 61-year-old female who was admitted to the hospital because of blood sugar of 500. The patient has history of schizoaffective disorder and Dr. Stroud asked me to evaluate the patient. Chart reviewed and the patient interviewed. Discussed the patient's condition with the staff and reviewed records and labs. The patient has history of schizoaffective disorder. The patient has been taking Effexor XR. She also has been taking Seroquel and Lamictal. The patient has been stable and she seems to be less depressed. She also has been relatively calm. The patient denies any thoughts of suicide or homicide. PAST PSYCHIATRIC HISTORY: The patient has a history of schizoaffective disorder, currently stable. PAST MEDICAL HISTORY: The patient admitted with high blood sugar. She also has history of hypertension and gastroesophageal reflux disease. ALLERGIES: No known allergies. MENTAL STATUS EXAM: The patient appears slightly older than her stated age. Anxious. Sad affect. In a depressed mood. Thought processes are circumstantial and tangential, but no flight of ideas. The patient denies auditory or visual hallucinations or delusions. The patient denies any suicidal or homicidal ideations. The patient is alert and oriented to time, place, person, and situation. Intact immediate, recent, and remote memories. Fair insight and fair judgment. ASSESSMENT AND PRIMARY DIAGNOSIS: Schizoaffective disorder, depressed phase, moderate to severe. TREATMENT PLAN: We will monitor the patient's condition closely. We will start individual as well as milieu psychotherapy. Also, we will adjust psychotropic medications and will evaluate for any further recommendations. Thanks to Dr. Stroud and we will follow up with you. JOB# [id number]
[2017-09-12] MEDS: INSULIN ASPART SLIDING SCALE 100 UNITS/ML UNIT SUBQ SCH ×3 (08:22→18:06)
[2017-09-12 08:45] LABS: % BASOPHILS 0.7 % (0.0-2.0); % EOSINOPHILS 1.4 % (0.0-5.0); % LYMPHOCYTES 17.9 % (20.0-50.0); % MONOCYTES 6.8 % (2.0-10.0); % NEUTROPHILS 73.2 % (40.0-80.0); EOSINOPHILE ABSOLUTE 0.1 Th/cmm (0.1-0.4); HEMATOCRIT 37.2 % (41.0-60); HEMOGLOBIN 12.8 gm/dL (12-16); LYMPHOCYTE ABSOLUTE 0.9 Th/cmm (1.5-3.0); MEAN CELL VOLUME 86.4 fl (81-100); MEAN CORPUSCULAR HEMOGLOBIN 29.8 pg (27.0-31.0); MEAN CORPUSCULAR HGB CONC 34.5 pg (28.0-36.0); MEAN PLATELET VOLUME 7.3 fl; MONOCYTE ABSOLUTE 0.3 Th/cmm (0.3-1.0); NEUTROPHILE ABSOLUTE 3.8 Th/cmm (1.8-8.0); PLATELET COUNT 202 Th/cmm (150-400); RED BLOOD COUNT 4.31 Mil/cmm (3.80-5.10); RED CELL DISTRIBUTION WIDTH 11.7 % (11.5-20.0); WHITE BLOOD COUNT 5.1 Th/cmm (4.8-10.8)
[2017-09-12] MEDS: Ferrous Sulfate 325 MG TAB PO SCH (08:57)
[2017-09-12] MEDS ORDERED: Insulin Detemir 100 units/mL 10mL Vial SUBQ SCH (09:00)
[2017-09-12] MEDS ORDERED: Pantoprazole 40 mg EC Tab PO SCH (09:00)
[2017-09-12 09:01] LABS: ANION GAP 12.9 (7.0-16.0); BUN - UREA NITROGEN 17 mg/dL (7-25); CALCIUM SERUM 9.8 mg/dL (8.6-10.3); CARBON DIOXIDE 25.9 mEq/L (21.0-31.0); CHLORIDE 93 mEq/L (98-107); GFR AFRICAN-AMERICAN > 60.0 ml/min (>90); GFR NON AFRICAN-AMERICAN 59.5 ml/min; POTASSIUM SERUM 4.8 mEq/L (3.5-5.1); SODIUM SERUM 127 mEq/L (136-145)
[2017-09-12 09:04] LABS: GLUCOSE 556 mg/dL (70-105)
--- NOTE | 2017-09-12 09:22 | General Progress Note ---
Subjective - Review of Systems Events since last encounter: admitted for high blood sugars patient with h/o schizophrenia Objective - Results Result Diagrams: 09/12/17 08:40 09/12/17 08:40 Recent Labs: Laboratory Last Values WBC 5.1 Th/cmm (4.8-10.8) 09/12/17 08:40 RBC 4.31 Mil/cmm (3.80-5.10) 09/12/17 08:40 Hgb 12.8 gm/dL (12-16) 09/12/17 08:40 Hct 37.2 % (41.0-60) L 09/12/17 08:40 MCV 86.4 fl (81-100) 09/12/17 08:40 MCH 29.8 pg (27.0-31.0) 09/12/17 08:40 MCHC Differential 34.5 pg (28.0-36.0) 09/12/17 08:40 RDW 11.7 % (11.5-20.0) 09/12/17 08:40 Plt Count 202 Th/cmm (150-400) 09/12/17 08:40 MPV 7.3 fl 09/12/17 08:40 Neutrophils % 73.2 % (40.0-80.0) 09/12/17 08:40 Lymphocytes % 17.9 % (20.0-50.0) L 09/12/17 08:40 Monocytes % 6.8 % (2.0-10.0) 09/12/17 08:40 Eosinophils % 1.4 % (0.0-5.0) 09/12/17 08:40 Basophils % 0.7 % (0.0-2.0) 09/12/17 08:40 Sodium 127 mEq/L (136-145) L 09/12/17 08:40 Potassium 4.8 mEq/L (3.5-5.1) 09/12/17 08:40 Chloride 93 mEq/L (98-107) L 09/12/17 08:40 Carbon Dioxide 25.9 mEq/L (21.0-31.0) 09/12/17 08:40 Anion Gap 12.9 (7.0-16.0) 09/12/17 08:40 BUN 17 mg/dL (7-25) 09/12/17 08:40 Creatinine 1.0 mg/dL (0.6-1.2) 09/12/17 08:40 Est GFR ( Amer) > 60.0 ml/min (>90) 09/12/17 08:40 Est GFR (Non-Af Amer) 59.5 ml/min 09/12/17 08:40 BUN/Creatinine Ratio 17.0 09/12/17 08:40 Glucose 554 mg/dL (70-105) H* 09/12/17 08:40 POC Glucose 507 MG/DL (70 - 105) H* 09/12/17 06:52 Whole Bld Lactic Acid 1.44 mmol/L (0.60-1.99) 09/11/17 17:45 Calcium 9.8 mg/dL (8.6-10.3) 09/12/17 08:40 Magnesium 2.3 mg/dL (1.9-2.7) 09/11/17 17:45 Total Bilirubin 0.5 mg/dL (0.3-1.0) 09/11/17 17:45 AST 24 U/L (13-39) 09/11/17 17:45 ALT 27 U/L (7-52) 09/11/17 17:45 Alkaline Phosphatase 167 U/L (34-104) H 09/11/17 17:45 Total Protein 6.8 gm/dL (6.0-8.3) 09/11/17 17:45 Albumin 3.7 gm/dL (3.7-5.3) 09/11/17 17:45 Globulin 3.1 gm/dL 09/11/17 17:45 Albumin/Globulin Ratio 1.2 (1.0-1.8) 09/11/17 17:45 Triglycerides 140 mg/dL (<150) 09/11/17 17:45 Cholesterol 202 mg/dL (<200) H 09/11/17 17:45 LDL Cholesterol Direct 113 mg/dL (75-193) 09/11/17 17:45 HDL Cholesterol 71 mg/dL (23-92) 09/11/17 17:45 TSH 1.49 uIU/ml (0.34-5.60) 09/11/17 17:45 Urine Source MIDSTREAM 09/11/17 17:40 Urine Color YELLOW 09/11/17 17:40 Urine Clarity CLEAR (CLEAR) 09/11/17 17:40 Urine pH 5.5 (4.6 - 8.0) 09/11/17 17:40 Ur Specific [place] 1.020 (1.005-1.030) 09/11/17 17:40 Urine Protein NEGATIVE mg/dL (NEGATIVE) 09/11/17 17:40 Urine Glucose (UA) >=1000 mg/dL (NEGATIVE) H 09/11/17 17:40 Urine Ketones NEGATIVE mg/dL (NEGATIVE) 09/11/17 17:40 Urine Blood NEGATIVE (NEGATIVE) 09/11/17 17:40 Urine Nitrate NEGATIVE (NEGATIVE) 09/11/17 17:40 Urine Bilirubin NEGATIVE (NEGATIVE) 09/11/17 17:40 Urine Urobilinogen 0.2 E.U./dL (0.2 - 1.0) 09/11/17 17:40 Ur Leukocyte Esterase NEGATIVE (NEGATIVE) 09/11/17 17:40 Urine RBC 0-1 /hpf (0-5) 09/11/17 17:40 Urine WBC 2-5 /hpf (0-5) 09/11/17 17:40 Ur Epithelial Cells OCCASIONAL /lpf (FEW) 09/11/17 17:40 Urine Bacteria FEW /hpf (NONE SEEN) 09/11/17 17:40 - Physical Exam Vitals and I&O: Vital Signs Temp 97.8 F 09/12/17 05:00 Pulse 82 09/12/17 05:00 Resp 18 09/12/17 05:00 BP 128/68 09/12/17 05:00 Pulse Ox 98 09/12/17 05:00 Intake & Output 09/11/17 09/12/17 09/12/17 18:59 06:59 18:59 Intake Total 100 Balance 100 Weight (lbs) 65.317 kg Intake: Oral 100 Other: # Voids 2 # Bowel Movements 0 Active Medications: Current Medications Acetaminophen (Tylenol) 650 mg PO Q6HR PRN PRN Reason: Mild-Moderate Pain or T >101 Stop: 11/10/17 21:58 Al Hydrox/Mg Hydrox/Simethicone (Maalox) 30 ml PO Q4HR PRN PRN Reason: GI DISTRESS Stop: 11/10/17 21:58 Aripiprazole (Abilify) 30 mg PO HS DEVAUGHN PRN Reason: Protocol Stop: 11/11/17 20:59 Atorvastatin Calcium (Lipitor) 80 mg PO DAILY DEVAUGHN PRN Reason: Protocol Stop: 11/11/17 08:59 Last Admin: 09/12/17 08:57 Dose: 80 mg Carvedilol (Coreg) 12.5 mg PO BID DEVAUGHN Stop: 11/11/17 08:59 Duloxetine HCl (Cymbalta) 30 mg PO DAILY DEVAUGHN PRN Reason: Protocol Stop: 11/11/17 08:59 Ergocalciferol (Vitamin D) 50,000 iu PO QWED DEVAUGHN Stop: 11/13/17 08:59 Ferrous Sulfate (Iron) 325 mg PO DAILY DEVAUGHN Stop: 11/11/17 08:59 Last Admin: 09/12/17 08:57 Dose: 325 mg Fish Oil ([place] 3) 1,000 mg PO DAILY [facility] Stop: 11/11/17 08:59 Gabapentin (Neurontin) 800 mg PO Q8HR DEVAUGHN Stop: 11/11/17 04:59 Last Admin: 09/12/17 05:55 Dose: 800 mg Heparin Sodium (Porcine) (Heparin) 5,000 units SUBQ Q12HR DEVAUGHN Stop: 11/11/17 20:59 Sodium Chloride (Nacl 0.9%) 1,000 mls @ 75 mls/hr IV .[id number] ONE Stop: 09/12/17 11:06 Last Admin: 09/11/17 22:05 Dose: 75 mls/hr Insulin Aspart (Novolog Insulin Sliding Scale) 0 units SUBQ AC [facility] PRN Reason: Protocol Stop: 11/11/17 07:29 Last Admin: 09/12/17 08:22 Dose: 12 units Insulin Detemir (Levemir Insulin) 20 units SUBQ BID [facility]AUGHN PRN Reason: Protocol Stop: 11/11/17 08:59 Lactobacillus Rhamnosus (Culturelle 15b) 1 each PO DAILY [facility] Stop: 11/11/17 08:59 Magnesium Hydroxide (Milk Of Magnesia) 30 ml PO HS PRN PRN Reason: Constipation Stop: 11/10/17 21:58 Nitroglycerin (Nitrostat) 0.4 mg SL Q5MIN PRN PRN Reason: Chest Pain Stop: 11/10/17 18:32 Pantoprazole Sodium (Protonix) 40 mg PO QDAC DEVAUGHN Stop: 11/11/17 07:29 Trazodone HCl (Desyrel) 100 mg PO HS DEVAUGHN PRN Reason: Protocol Stop: 11/11/17 20:59
[2017-09-12] MEDS: Insulin Detemir 100 units/mL 10mL Vial SUBQ SCH ×2 (10:45→18:01)
[2017-09-12] MEDS: Lactobacillus Rhamnosus GG 15 Billion CFU CAP.SPRINK PO SCH (10:47)
[2017-09-12] MEDS: Pantoprazole 40 mg EC Tab PO SCH (10:47)
[2017-09-12] MEDS: Fish Oil 1,000 MG SGL PO SCH (10:49)
--- NOTE | 2017-09-12 17:04 | History & Physical ---
ADMIT DATE: 09/11/2017 HISTORY OF PRESENT ILLNESS: This is a female, very well known to me from previous admissions. The patient resides in [place], apparently has been having problems with blood sugar control. Blood sugar going anywhere between 400 and 500, they gave some insulin to the patient, still sugar was high. The patient was sent to [place] for evaluation. The patient is known to have history of schizoaffective disorder. The patient known to have a history of diabetic neuropathy and the patient known to have history of anemia. The patient also known to have urinary tract infections in the past. The patient has history of vitamin D deficiency, history of hypertension and the patient came because of the electrolyte imbalance as well as a high sugar and the patient was admitted. PAST MEDICAL HISTORY: Please refer to the old chart. LABORATORY DATA: The patient's hemoglobin was low at 11.5. PHYSICAL EXAMINATION: HEAD: Normal. ENT: Normal. NECK: Supple, nontender. LUNGS: Bilaterally clear. CARDIOVASCULAR SYSTEM: S1, S2 heard. ABDOMEN: Soft. Bowel sounds are heard. CENTRAL NERVOUS SYSTEM: The patient is alert, oriented. DIAGNOSES: Uncontrolled diabetes, rule out sepsis, rule out cardiomyopathy, status post pacemaker, status post neuropathy, status post GERD, dementia, osteoarthritis and renal insufficiency. PLAN: The patient is being admitted and I will follow the patient and I will have Dr. Eliseo Humphries, SADAF consult and I will follow the patient. JOB# [id number]
[2017-09-12 19:31] LABS: A1C % 9.4 % (4.0-6.0)
[2017-09-13] MEDS: Pantoprazole 40 mg EC Tab PO SCH (06:44)
[2017-09-13] MEDS: INSULIN ASPART SLIDING SCALE 100 UNITS/ML UNIT SUBQ SCH ×3 (06:44→16:26)
[2017-09-13] MEDS: Sodium Chloride 0.9% 1,000 ML IV SCH ×2 (06:54→15:00)
[2017-09-13] MEDS: Fish Oil 1,000 MG SGL PO SCH (08:23)
[2017-09-13] MEDS: Lactobacillus Rhamnosus GG 15 Billion CFU CAP.SPRINK PO SCH (08:23)
[2017-09-13] MEDS: Ferrous Sulfate 325 MG TAB PO SCH (08:23)
[2017-09-13] MEDS: Insulin Detemir 100 units/mL 10mL Vial SUBQ SCH ×2 (08:31→16:26)
--- NOTE | 2017-09-13 08:51 | Progress Notes ---
DATE: 09/13/2017 SUBJECTIVE: Chart reviewed and the patient interviewed. Also discussed the patient's condition with the staff and reviewed records and labs. The patient seems to be slightly calmer and less agitated. The patient also is cooperative with her treatment. She denies any side effects of medications and she denies any thoughts of suicide or homicide. Recommended to continue current psychotropic medications and we will continue to monitor her behavior and her condition. [facility]# [id number]
--- NOTE | 2017-09-13 15:23 | General Progress Note ---
Subjective - Review of Systems Events since last encounter: awake alert in no distress improving Objective - Results Result Diagrams: 09/12/17 08:40 09/12/17 08:40 Recent Labs: Laboratory Last Values WBC 5.1 Th/cmm (4.8-10.8) 09/12/17 08:40 RBC 4.31 Mil/cmm (3.80-5.10) 09/12/17 08:40 Hgb 12.8 gm/dL (12-16) 09/12/17 08:40 Hct 37.2 % (41.0-60) L 09/12/17 08:40 MCV 86.4 fl (81-100) 09/12/17 08:40 MCH 29.8 pg (27.0-31.0) 09/12/17 08:40 MCHC Differential 34.5 pg (28.0-36.0) 09/12/17 08:40 RDW 11.7 % (11.5-20.0) 09/12/17 08:40 Plt Count 202 Th/cmm (150-400) 09/12/17 08:40 MPV 7.3 fl 09/12/17 08:40 Neutrophils % 73.2 % (40.0-80.0) 09/12/17 08:40 Lymphocytes % 17.9 % (20.0-50.0) L 09/12/17 08:40 Monocytes % 6.8 % (2.0-10.0) 09/12/17 08:40 Eosinophils % 1.4 % (0.0-5.0) 09/12/17 08:40 Basophils % 0.7 % (0.0-2.0) 09/12/17 08:40 Sodium 127 mEq/L (136-145) L 09/12/17 08:40 Potassium 4.8 mEq/L (3.5-5.1) 09/12/17 08:40 Chloride 93 mEq/L (98-107) L 09/12/17 08:40 Carbon Dioxide 25.9 mEq/L (21.0-31.0) 09/12/17 08:40 Anion Gap 12.9 (7.0-16.0) 09/12/17 08:40 BUN 17 mg/dL (7-25) 09/12/17 08:40 Creatinine 1.0 mg/dL (0.6-1.2) 09/12/17 08:40 Est GFR ( Amer) > 60.0 ml/min (>90) 09/12/17 08:40 Est GFR (Non-Af Amer) 59.5 ml/min 09/12/17 08:40 BUN/Creatinine Ratio 17.0 09/12/17 08:40 Glucose 554 mg/dL (70-105) H* 09/12/17 08:40 POC Glucose 377 MG/DL (70 - 105) H 09/13/17 11:11 Hemoglobin A1c % 9.4 % (4.0-6.0) H 09/11/17 17:45 Whole Bld Lactic Acid 1.44 mmol/L (0.60-1.99) 09/11/17 17:45 Calcium 9.8 mg/dL (8.6-10.3) 09/12/17 08:40 Magnesium 2.3 mg/dL (1.9-2.7) 09/11/17 17:45 Total Bilirubin 0.5 mg/dL (0.3-1.0) 09/11/17 17:45 AST 24 U/L (13-39) 09/11/17 17:45 ALT 27 U/L (7-52) 09/11/17 17:45 Alkaline Phosphatase 167 U/L (34-104) H 09/11/17 17:45 Total Protein 6.8 gm/dL (6.0-8.3) 09/11/17 17:45 Albumin 3.7 gm/dL (3.7-5.3) 09/11/17 17:45 Globulin 3.1 gm/dL 09/11/17 17:45 Albumin/Globulin Ratio 1.2 (1.0-1.8) 09/11/17 17:45 Triglycerides 140 mg/dL (<150) 09/11/17 17:45 Cholesterol 202 mg/dL (<200) H 09/11/17 17:45 LDL Cholesterol Direct 113 mg/dL (75-193) 09/11/17 17:45 HDL Cholesterol 71 mg/dL (23-92) 09/11/17 17:45 Free T4 1.11 ng/dL (0.82-1.77) 09/11/17 17:45 TSH 1.49 uIU/ml (0.34-5.60) 09/11/17 17:45 Urine Source MIDSTREAM 09/11/17 17:40 Urine Color YELLOW 09/11/17 17:40 Urine Clarity CLEAR (CLEAR) 09/11/17 17:40 Urine pH 5.5 (4.6 - 8.0) 09/11/17 17:40 Ur Specific [place] 1.020 (1.005-1.030) 09/11/17 17:40 Urine Protein NEGATIVE mg/dL (NEGATIVE) 09/11/17 17:40 Urine Glucose (UA) >=1000 mg/dL (NEGATIVE) H 09/11/17 17:40 Urine Ketones NEGATIVE mg/dL (NEGATIVE) 09/11/17 17:40 Urine Blood NEGATIVE (NEGATIVE) 09/11/17 17:40 Urine Nitrate NEGATIVE (NEGATIVE) 09/11/17 17:40 Urine Bilirubin NEGATIVE (NEGATIVE) 09/11/17 17:40 Urine Urobilinogen 0.2 E.U./dL (0.2 - 1.0) 09/11/17 17:40 Ur Leukocyte Esterase NEGATIVE (NEGATIVE) 09/11/17 17:40 Urine RBC 0-1 /hpf (0-5) 09/11/17 17:40 Urine WBC 2-5 /hpf (0-5) 09/11/17 17:40 Ur Epithelial Cells OCCASIONAL /lpf (FEW) 09/11/17 17:40 Urine Bacteria FEW /hpf (NONE SEEN) 09/11/17 17:40 - Physical Exam Vitals and I&O: Vital Signs Temp 97.6 F 09/13/17 12:00 Pulse 68 09/13/17 12:00 Resp 18 09/13/17 12:00 BP 118/58 09/13/17 12:00 Pulse Ox 99 09/13/17 12:00 Intake & Output 09/12/17 09/13/17 09/13/17 18:59 06:59 18:59 Intake Total 120 1000 Output Total 0 Balance 120 0 1000 Weight (lbs) 65.317 kg 65.726 kg Intake: Intake, IV Amount 1000 Sodium Chloride 0.9% 1, 1000 000 ml @ 125 mls/hr IV . Q8H [facility] Rx#:[id number] Oral 120 Output: Stool 0 Other: # Voids 2 3 Active Medications: Current Medications Acetaminophen (Tylenol) 650 mg PO Q6HR PRN PRN Reason: Mild-Moderate Pain or T >101 Stop: 11/10/17 21:58 Al Hydrox/Mg Hydrox/Simethicone (Maalox) 30 ml PO Q4HR PRN PRN Reason: GI DISTRESS Stop: 11/10/17 21:58 Aripiprazole (Abilify) 30 mg PO HS [facility] PRN Reason: Protocol Stop: 11/11/17 20:59 Atorvastatin Calcium (Lipitor) 80 mg PO DAILY [facility] PRN Reason: Protocol Stop: 11/11/17 08:59 Last Admin: 09/13/17 08:23 Dose: 80 mg Carvedilol (Coreg) 12.5 mg PO BID [facility] Stop: 11/11/17 08:59 Last Admin: 09/13/17 08:23 Dose: 12.5 mg Duloxetine HCl (Cymbalta) 30 mg PO DAILY [facility] PRN Reason: Protocol Stop: 11/11/17 08:59 Ergocalciferol (Vitamin D) 50,000 iu PO QWED [facility] Stop: 11/13/17 08:59 Ferrous Sulfate (Iron) 325 mg PO DAILY [facility] Stop: 11/11/17 08:59 Last Admin: 09/13/17 08:23 Dose: 325 mg Fish Oil ([place] 3) 1,000 mg PO DAILY [facility] Stop: 11/11/17 08:59 Last Admin: 09/13/17 08:23 Dose: 1,000 mg Gabapentin (Neurontin) 800 mg PO Q8HR [facility] Stop: 11/11/17 04:59 Last Admin: 09/13/17 13:00 Dose: 800 mg Heparin Sodium (Porcine) (Heparin) 5,000 units SUBQ Q12HR [facility] Stop: 11/11/17 20:59 Last Admin: 09/13/17 08:32 Dose: 5,000 units Sodium Chloride (Nacl 0.9%) 1,000 mls @ 125 mls/hr IV .Q8H [facility] Stop: 11/12/17 06:14 Last Admin: 09/13/17 15:00 Dose: 125 mls/hr Insulin Aspart (Novolog Insulin Sliding Scale) 0 units SUBQ AC [facility] PRN Reason: Protocol Stop: 11/11/17 07:29 Last Admin: 09/13/17 11:16 Dose: 10 units Insulin Detemir (Levemir Insulin) 20 units SUBQ BID [facility] PRN Reason: Protocol Stop: 11/11/17 08:59 Last Admin: 09/13/17 08:31 Dose: 20 unit Lactobacillus Rhamnosus (Culturelle 15b) 1 each PO DAILY [facility] Stop: 11/11/17 08:59 Last Admin: 09/13/17 08:23 Dose: 1 each Magnesium Hydroxide (Milk Of Magnesia) 30 ml PO HS PRN PRN Reason: Constipation Stop: 11/10/17 21:58 Nitroglycerin (Nitrostat) 0.4 mg SL Q5MIN PRN PRN Reason: Chest Pain Stop: 11/10/17 18:32 Pantoprazole Sodium (Protonix) 40 mg PO QDAC [facility] Stop: 11/11/17 07:29 Last Admin: 09/13/17 06:44 Dose: 40 mg Trazodone HCl (Desyrel) 100 mg PO HS [facility] PRN Reason: Protocol Stop: 11/11/17 20:59 Nutritional Asmnt/Malnutr-PDOC - Dietary Evaluation Malnutrition Findings (Please click <Entered> for more info): Nutritional Asmnt/Malnutrition Start: 09/12/17 10: 03 Text: Status: Active Freq: Document 09/12/17 10:03 [email or web address] (Rec: 09/12/17 10:14 [email or web address]) Nutritional Asmnt/Malnutrition Patient General Information Nutritional Screening Consult Diagnosis hyponatremia, dehydration, uncontrolled DM Pertinent Medical Hx/Surgical Hx schizoaffective disorder, DM, HTN, GERD Subjective Information Consult for DM. Pt in bed. Has never received DM diet ed. Pt accepting of diet ed, question how much patient understood, seemed confused, asked simple questions during education. handout provided. states is eating well currently. Current Diet Order/ Nutrition Support CCHO 90 gm Patient / S.O Can't verbalize diet edu Pertinent Medications vit d, iron, fish oil, insulin , culturelle, MOM, protonix Pertinent Labs 09/12 Na: 127, glucose: 455-556 Nutritional Hx/Data Height 1.68 m Height (Calculated Centimeters) 167.6 Current Weight (lbs) 65.317 kg Weight (Calculated Kilograms) 65.3 Weight (Calculated Grams) 34833.3 [place] Body Weight 130 % [place] Body Weight 111 Body Mass Index (BMI) 23.2 Recent Weight Change No Weight Status Approriate GI Symptoms GI Symptoms None Last BM [employer] Difficult in: None Usual diet at home regular Skin Integrity/Comment: intakct, no edema Current %PO Good (75-100%) Estimated Nutritional Goals BEE in Kcals: Using Current wt Calories/Kcals/Kg 25-30 Kcals Calculated 2970-1372 Protein: Using Current wt Protein g/k-1.2 Protein Calculated 65-78 g Fluid: ml 2648-2155 mL (1 ml/kcal) Nutritional Problem No current Nutrition Prob Problem food/nutrition related knowledge deficit Etiology DM Signs/Symptoms: glucose: 455-556 Malnutrition Alert Is there a minimum of two criteria No selected? Query Text:Check all the applicable criteria. A minimum of two criteria are recommended for diagnosis of either severe or non-severe malnutrition. Malnutrition Related to Morbid Obesity Malnutrition related to morbid obesity No Intervention/Recommendation Recommendations by RD Dietary Education by RD1 Comments 1. Provided DM diet ed. handout provided. expect low compliance due to pt's mental status. 2. Continue CCHO 90 gm diet Expected Outcomes/Goals Expected Outcomes/Goals Po intake >50%, glucose: WNL, pt to understand DM diet monitor wt, labs, skin, PO intake
[2017-09-13 17:00] LABS: ANION GAP 11.6 (7.0-16.0); BUN - UREA NITROGEN 19 mg/dL (7-25); CALCIUM SERUM 9.5 mg/dL (8.6-10.3); CARBON DIOXIDE 27.1 mEq/L (21.0-31.0); CHLORIDE 99 mEq/L (98-107); CREATININE - SERUM 1.1 mg/dL (0.6-1.2); GFR AFRICAN-AMERICAN > 60.0 ml/min (>90); GFR NON AFRICAN-AMERICAN 53.3 ml/min; GLUCOSE 356 mg/dL (70-105); POTASSIUM SERUM 4.7 mEq/L (3.5-5.1); SODIUM SERUM 133 mEq/L (136-145)
[2017-09-13 18:11] LABS: IRON LC 67 ug/dL (27-139); TIBC (LC) 357 (250-450); UIBC 290 ug/dL (118-369)
[2017-09-14] MEDS: Pantoprazole 40 mg EC Tab PO SCH (06:59)
[2017-09-14] MEDS: INSULIN ASPART SLIDING SCALE 100 UNITS/ML UNIT SUBQ SCH ×2 (08:02→11:43)
[2017-09-14] MEDS: Lactobacillus Rhamnosus GG 15 Billion CFU CAP.SPRINK PO SCH (08:19)
[2017-09-14] MEDS: Fish Oil 1,000 MG SGL PO SCH (08:19)
[2017-09-14] MEDS: Ferrous Sulfate 325 MG TAB PO SCH (08:19)
[2017-09-14] MEDS: Insulin Detemir 100 units/mL 10mL Vial SUBQ SCH (08:36)
[2017-09-14] MEDS: Sodium Chloride 0.9% 1,000 ML IV SCH (08:47)
--- NOTE | 2017-09-14 10:40 | Progress Notes ---
DATE: SUBJECTIVE: Chart reviewed and the patient interviewed. Also, discussed the patient's condition with the staff and reviewed records and labs. The patient seems to be calmer than before and she seems to be less agitated and less irritable. She also is interacting more with peers and with others at times, but most of the time she is quite. She also is still having episodes of restlessness. Otherwise, the patient is compliant with taking her medications with no side effects. ASSESSMENT: The patient showed some improvement. TREATMENT PLAN: Continue current psychotropic medications and we will continue to follow up. JOB# [id number]
--- NOTE | 2017-09-14 13:42 | Internal Medicine Prog Note ---
Internal Medicine Subjective - Subjective Service Date: 09/14/17 Patient seen and examined:: with staff Patient is:: awake Per staff patient has:: no adverse event Internal Medicine Objective - Results Result Diagrams: 09/12/17 08:40 09/13/17 16:37 Recent Labs: Laboratory Last Values WBC 5.1 Th/cmm (4.8-10.8) 09/12/17 08:40 RBC 4.31 Mil/cmm (3.80-5.10) 09/12/17 08:40 Hgb 12.8 gm/dL (12-16) 09/12/17 08:40 Hct 37.2 % (41.0-60) L 09/12/17 08:40 MCV 86.4 fl (81-100) 09/12/17 08:40 MCH 29.8 pg (27.0-31.0) 09/12/17 08:40 MCHC Differential 34.5 pg (28.0-36.0) 09/12/17 08:40 RDW 11.7 % (11.5-20.0) 09/12/17 08:40 Plt Count 202 Th/cmm (150-400) 09/12/17 08:40 MPV 7.3 fl 09/12/17 08:40 Neutrophils % 73.2 % (40.0-80.0) 09/12/17 08:40 Lymphocytes % 17.9 % (20.0-50.0) L 09/12/17 08:40 Monocytes % 6.8 % (2.0-10.0) 09/12/17 08:40 Eosinophils % 1.4 % (0.0-5.0) 09/12/17 08:40 Basophils % 0.7 % (0.0-2.0) 09/12/17 08:40 Sodium 133 mEq/L (136-145) L 09/13/17 16:37 Potassium 4.7 mEq/L (3.5-5.1) 09/13/17 16:37 Chloride 99 mEq/L (98-107) 09/13/17 16:37 Carbon Dioxide 27.1 mEq/L (21.0-31.0) 09/13/17 16:37 Anion Gap 11.6 (7.0-16.0) 09/13/17 16:37 BUN 19 mg/dL (7-25) 09/13/17 16:37 Creatinine 1.1 mg/dL (0.6-1.2) 09/13/17 16:37 Est GFR ( Amer) > 60.0 ml/min (>90) 09/13/17 16:37 Est GFR (Non-Af Amer) 53.3 ml/min 09/13/17 16:37 BUN/Creatinine Ratio 17.3 09/13/17 16:37 Glucose 356 mg/dL (70-105) H 09/13/17 16:37 POC Glucose 279 MG/DL (70 - 105) H 09/14/17 11:40 Hemoglobin A1c % 9.4 % (4.0-6.0) H 09/11/17 17:45 Whole Bld Lactic Acid 1.44 mmol/L (0.60-1.99) 09/11/17 17:45 Calcium 9.5 mg/dL (8.6-10.3) 09/13/17 16:37 Magnesium 2.3 mg/dL (1.9-2.7) 09/11/17 17:45 Iron 67 ug/dL (27-139) 09/11/17 17:45 TIBC 357 (250-450) 09/11/17 17:45 Iron Saturation 19 (15-55) 09/11/17 17:45 Unsaturated IBC 290 ug/dL (118-369) 09/11/17 17:45 Ferritin 66 ng/mL (15-150) 09/11/17 17:45 Total Bilirubin 0.5 mg/dL (0.3-1.0) 09/11/17 17:45 AST 24 U/L (13-39) 09/11/17 17:45 ALT 27 U/L (7-52) 09/11/17 17:45 Alkaline Phosphatase 167 U/L (34-104) H 09/11/17 17:45 Total Protein 6.8 gm/dL (6.0-8.3) 09/11/17 17:45 Albumin 3.7 gm/dL (3.7-5.3) 09/11/17 17:45 Globulin 3.1 gm/dL 09/11/17 17:45 Albumin/Globulin Ratio 1.2 (1.0-1.8) 09/11/17 17:45 Triglycerides 140 mg/dL (<150) 09/11/17 17:45 Cholesterol 202 mg/dL (<200) H 09/11/17 17:45 LDL Cholesterol Direct 113 mg/dL (75-193) 09/11/17 17:45 HDL Cholesterol 71 mg/dL (23-92) 09/11/17 17:45 Free T4 1.11 ng/dL (0.82-1.77) 09/11/17 17:45 TSH 1.49 uIU/ml (0.34-5.60) 09/11/17 17:45 Urine Source MIDSTREAM 09/11/17 17:40 Urine Color YELLOW 09/11/17 17:40 Urine Clarity CLEAR (CLEAR) 09/11/17 17:40 Urine pH 5.5 (4.6 - 8.0) 09/11/17 17:40 Ur Specific [place] 1.020 (1.005-1.030) 09/11/17 17:40 Urine Protein NEGATIVE mg/dL (NEGATIVE) 09/11/17 17:40 Urine Glucose (UA) >=1000 mg/dL (NEGATIVE) H 09/11/17 17:40 Urine Ketones NEGATIVE mg/dL (NEGATIVE) 09/11/17 17:40 Urine Blood NEGATIVE (NEGATIVE) 09/11/17 17:40 Urine Nitrate NEGATIVE (NEGATIVE) 09/11/17 17:40 Urine Bilirubin NEGATIVE (NEGATIVE) 09/11/17 17:40 Urine Urobilinogen 0.2 E.U./dL (0.2 - 1.0) 09/11/17 17:40 Ur Leukocyte Esterase NEGATIVE (NEGATIVE) 09/11/17 17:40 Urine RBC 0-1 /hpf (0-5) 09/11/17 17:40 Urine WBC 2-5 /hpf (0-5) 09/11/17 17:40 Ur Epithelial Cells OCCASIONAL /lpf (FEW) 09/11/17 17:40 Urine Bacteria FEW /hpf (NONE SEEN) 09/11/17 17:40 - Physical Exam Vitals and I&O: Vital Signs Temp 97.2 F 09/14/17 12:00 Pulse 62 09/14/17 12:00 Resp 20 09/14/17 12:00 BP 152/68 09/14/17 12:00 Pulse Ox 99 09/14/17 12:00 Intake & Output 09/13/17 09/14/17 09/14/17 18:59 06:59 18:59 Intake Total 2100 1050 100 Balance 2100 1050 100 Weight (lbs) 149 lb 3.2 oz 149 lb 149 lb Intake: Intake, IV Amount 1000 1000 Sodium Chloride 0.9% 1, 1000 1000 000 ml @ 125 mls/hr IV . Q8H [facility] Rx#:[id number] Oral 1100 50 100 Tube Feeding 0 Other: # Voids 3 4 3 # Bowel Movements 0 0 0 Active Medications: Current Medications Acetaminophen (Tylenol) 650 mg PO Q6HR PRN PRN Reason: Mild-Moderate Pain or T >101 Stop: 11/10/17 21:58 Al Hydrox/Mg Hydrox/Simethicone (Maalox) 30 ml PO Q4HR PRN PRN Reason: GI DISTRESS Stop: 11/10/17 21:58 Aripiprazole (Abilify) 30 mg PO HS [facility] PRN Reason: Protocol Stop: 11/11/17 20:59 Last Admin: 09/13/17 22:34 Dose: Not Given Atorvastatin Calcium (Lipitor) 80 mg PO DAILY [facility] PRN Reason: Protocol Stop: 11/11/17 08:59 Last Admin: 09/14/17 08:19 Dose: 80 mg Carvedilol (Coreg) 12.5 mg PO BID [facility] Stop: 11/11/17 08:59 Last Admin: 09/14/17 08:24 Dose: 12.5 mg Duloxetine HCl (Cymbalta) 30 mg PO DAILY [facility] PRN Reason: Protocol Stop: 11/11/17 08:59 Last Admin: 09/14/17 08:31 Dose: Not Given Ergocalciferol (Vitamin D) 50,000 iu PO QWED [facility] Stop: 11/13/17 08:59 Last Admin: 09/14/17 08:17 Dose: 50,000 iu Ferrous Sulfate (Iron) 325 mg PO DAILY [facility] Stop: 11/11/17 08:59 Last Admin: 09/14/17 08:19 Dose: 325 mg Fish Oil ([place] 3) 1,000 mg PO DAILY [facility] Stop: 11/11/17 08:59 Last Admin: 09/14/17 08:19 Dose: 1,000 mg Gabapentin (Neurontin) 800 mg PO Q8HR [facility] Stop: 11/11/17 04:59 Last Admin: 09/14/17 13:03 Dose: 800 mg Heparin Sodium (Porcine) (Heparin) 5,000 units SUBQ Q12HR [facility] Stop: 11/11/17 20:59 Last Admin: 09/14/17 08:37 Dose: 5,000 units Sodium Chloride (Nacl 0.9%) 1,000 mls @ 125 mls/hr IV .Q8H [facility] Stop: 11/12/17 06:14 Last Admin: 09/14/17 08:47 Dose: 125 mls/hr Insulin Aspart (Novolog Insulin Sliding Scale) 0 units SUBQ AC [facility] PRN Reason: Protocol Stop: 11/11/17 07:29 Last Admin: 09/14/17 11:43 Dose: 6 units Insulin Detemir (Levemir Insulin) 20 units SUBQ BID [facility] PRN Reason: Protocol Stop: 11/11/17 08:59 Last Admin: 09/14/17 08:36 Dose: 20 unit Lactobacillus Rhamnosus (Culturelle 15b) 1 each PO DAILY [facility] Stop: 11/11/17 08:59 Last Admin: 09/14/17 08:19 Dose: 1 each Magnesium Hydroxide (Milk Of Magnesia) 30 ml PO HS PRN PRN Reason: Constipation Stop: 11/10/17 21:58 Nitroglycerin (Nitrostat) 0.4 mg SL Q5MIN PRN PRN Reason: Chest Pain Stop: 11/10/17 18:32 Pantoprazole Sodium (Protonix) 40 mg PO QDAC [facility] Stop: 11/11/17 07:29 Last Admin: 09/14/17 06:59 Dose: 40 mg Trazodone HCl (Desyrel) 100 mg PO HS [facility] PRN Reason: Protocol Stop: 11/11/17 20:59 Last Admin: 09/13/17 22:22 Dose: 100 mg General: alert HEENT: NC/AT, PERRLA Neck: Supple Lungs: CTAB Cardiovascular: RRR Abdomen: soft, non-tender Internal Medicine Assmt/Plan - Assessment Assessment: uncontrolled dm r/o sepsis r/o cardiomyopathy s/p pacemaker s/p neuropathy gerd dementia gerd acute renal insufficiency - Plan Plan: iv abx ivf for hydration continue current orders Nutritional Asmnt/Malnutr-PDOC - Dietary Evaluation Malnutrition Findings (Please click <Entered> for more info): Nutritional Asmnt/Malnutrition Start: 09/12/17 10: 03 Text: Status: Active Freq: Document 09/12/17 10:03 [email or web address] (Rec: 09/12/17 10:14 [email or web address]) Nutritional Asmnt/Malnutrition Patient General Information Nutritional Screening Consult Diagnosis hyponatremia, dehydration, uncontrolled DM Pertinent Medical Hx/Surgical Hx schizoaffective disorder, DM, HTN, GERD Subjective Information Consult for DM. Pt in bed. Has never received DM diet ed. Pt accepting of diet ed, question how much patient understood, seemed confused, asked simple questions during education. handout provided. states is eating well currently. Current Diet Order/ Nutrition Support CCHO 90 gm Patient / S.O Can't verbalize diet edu Pertinent Medications vit d, iron, fish oil, insulin , culturelle, MOM, protonix Pertinent Labs 09/12 Na: 127, glucose: 455-556 Nutritional Hx/Data Height 5 ft 6 in Height (Calculated Centimeters) 167.6 Current Weight (lbs) 144 lb Weight (Calculated Kilograms) 65.3 Weight (Calculated Grams) 00449.3 [place] Body Weight 130 % [place] Body Weight 111 Body Mass Index (BMI) 23.2 Recent Weight Change No Weight Status Approriate GI Symptoms GI Symptoms None Last BM [employer] Difficult in: None Usual diet at home regular Skin Integrity/Comment: intakct, no edema Current %PO Good (75-100%) Estimated Nutritional Goals BEE in Kcals: Using Current wt Calories/Kcals/Kg 25-30 Kcals Calculated 4442-4059 Protein: Using Current wt Protein g/k-1.2 Protein Calculated 65-78 g Fluid: ml 7614-7668 mL (1 ml/kcal) Nutritional Problem No current Nutrition Prob Problem food/nutrition related knowledge deficit Etiology DM Signs/Symptoms: glucose: 455-556 Malnutrition Alert Is there a minimum of two criteria No selected? Query Text:Check all the applicable criteria. A minimum of two criteria are recommended for diagnosis of either severe or non-severe malnutrition. Malnutrition Related to Morbid Obesity Malnutrition related to morbid obesity No Intervention/Recommendation Recommendations by RD Dietary Education by RD1 Comments 1. Provided DM diet ed. handout provided. expect low compliance due to pt's mental status. 2. Continue CCHO 90 gm diet Expected Outcomes/Goals Expected Outcomes/Goals Po intake >50%, glucose: WNL, pt to understand DM diet monitor wt, labs, skin, PO intake
--- NOTE | 2017-09-14 14:43 | Cardiology ---
09/12/2017 PROCEDURE: Echocardiogram. The patient of Dr. Stroud. M-MODE ECHOCARDIOGRAM: Mitral valve, anterior leaflet of mitral valve shows normal excursion, EF velocity. Posterior leaflet of the mitral valve shows normal excursion. Left ventricular posterior wall shows increased thickness, normal excursion. Interventricular septum shows increased thickness, normal excursion, hypertrophy of the left ventricle, ejection fraction 55%. Left atrium normal. Aortic root shows normal dimension, normal excursion of aortic leaflets. CONCLUSION: Hypertrophy of the left ventricle, ejection fraction 55%. 2D ECHO: Long axis view normal sized left ventricle with hypertrophy of the left ventricle. Left atrium enlarged 4.3 cm. Aortic root shows normal dimension, normal excursion of aortic leaflets. Short axis view of mitral valve normal. Short axis view of aortic valve normal. Apical four chamber view showed normal sized left ventricle with hypertrophy of the left ventricle. Left atrium enlarged. Right ventricular cavity, right atrium normal, no pericardial effusion. Ejection fraction 55%. CONCLUSION: Hypertrophy of the left ventricle, ejection fraction 55%, left atrial enlargement. Doppler study shows mild mitral regurgitation, moderate aortic regurgitation. Pressure half time for aortic regurgitation 1206 milliseconds. JOB# [id number]
--- NOTE | 2017-09-22 21:24 | Discharge Summary ---
DATE OF DISCHARGE: 09/14/2017 HOSPITAL COURSE: This patient is very well known to me. The patient known to have underlying psychosis. She was admitted for uncontrolled diabetes, rule out sepsis, cardiomyopathy, status post pacemaker, neuropathy, dementia, osteoarthritis and renal failure. The patient was treated for that and the patient gradually improved. The patient was in stable condition on 09/14 and discharged with a final diagnoses of urinary tract infection, improving; sepsis, improving; cardiomyopathy, stable, status post pacemaker; history of severe neuropathy, history of dementia, history of osteoarthritis and history of chronic renal failure. I will be following the patient and reconciliation sheet. DIET: 2 g sodium, 2000 ADA diet. ACTIVITY: As tolerated. CONDITION ON DISCHARGE: Stable. JOB# [id number]
== END 2017-09-14 17:10 | disposition home or self-care (01) | DRG 872 ==
LOC: ER 16:41 → MSI 18:50
PROVIDERS: ADMIT Internal Medicine; ATTEND Internal Medicine
DX: A41.9 Sepsis, unspecified organism (principal); E11.42 Type 2 diabetes mellitus with diabetic polyneuropathy; I42.9 Cardiomyopathy, unspecified; E11.65 Type 2 diabetes mellitus with hyperglycemia; N28.9 Disorder of kidney and ureter, unspecified; F25.1 Schizoaffective disorder, depressive type; F03.90 Unspecified dementia, unspecified severity, without behavioral disturbance, psychotic disturbance, mood disturbance, and anxiety; K21.9 Gastro-esophageal reflux disease without esophagitis; M19.90 Unspecified osteoarthritis, unspecified site; E55.9 Vitamin D deficiency, unspecified; I10 Essential (primary) hypertension; D50.9 Iron deficiency anemia, unspecified; Z95.0 Presence of cardiac pacemaker
CPT/HCPCS: 36415-UA; 71045-TC; 80048-TC; 80053-TC; 80061-TC; 81001-TC; 82728-90; 82947-TC; 82948-90; 83036-90; 83540-90; 83550-90; 83605; 83735-TC; 84439-90; 84443-TC; 85025-TC; 93005; J1644; J1815; J7030; J7040; Z7610

== ENCOUNTER 2018-02-12 16:12 | Inpatient (IN) | payer MEDICARE, OTHER ==
--- NOTE | 2018-02-12 17:12 | ED Physician Chart ---
ED Chief Complaint/HPI - Patient Information Date Seen:: 02/12/18 Time Seen:: 16:45 Chief Complaint:: leg wounds History of Present Illness:: 62 yr old female from [facility] with non healing heel wounds bilaterally lt greater than right for approx 2mos pt bedridden pt diabetic and has depression agitation psych pt withdrawn and not answering all questions Allergies:: Allergies Allergy/AdvReac Type Severity Reaction Status Date / Time No Known Allergies Allergy Verified 03/07/17 21:52 Vitals:: Vital Signs - 8 hr 02/12/18 16:20 Temp 98.8 F HR 64 RR 18 BP 161/68 O2 Sat % 94 ED Review of Systems - Review of Systems General/Constitutional: No fever, No chills, No weight loss, No weakness, No diaphoresis, No edema, No loss of appetite Skin: Skin lesions (heels and small abscess lt lower leg) Head: No headache, No light-headedness Eyes: No loss of vision, No pain, No diplopia ENT: No earache, No nasal drainage, No sore throat, No tinnitus Neck: No neck pain, No swelling, No thyromegaly, No stiffness, No mass noted Cardio Vascular: No chest pain, No palpitations, No PND, No orthopnea, No edema Pulmonary: No SOB, No cough, No sputum, No wheezing GI: No nausea, No vomiting, No diarrhea, No pain, No melena, No hematochezia, No constipation, No hematemesis G/U: No dysuria, No frequency, No hematuria Musculoskeletal: No bone or joint pain, No back pain, No muscle pain Endocrine: No polyuria, No polydipsia Psychiatric: No prior psych history, No depression, No anxiety, No suicidal ideation Hematopoietic: No bruising, No lymphadenopathy Allergic/Immuno: No urticaria, No angioedema Neurological: No syncope, No focal symptoms, No weakness, No paresthesia, No headache, No seizure, No dizziness, No confusion, No vertigo ED Past Medical History - Past Medical History Past Medical History: HTN, DM, Dyslipidemia, Other (bipolar schizoaffective disorder) Family Medical History - Family Member Mother History Unknown: Yes Ethnicity: Non- Living Status: Still Living Hx Family Diabetes: Yes ED Assessment - Assessment General Assessment: bilateral heel wounds decubiti ED Septic Shock - . Is Septic Shock (SBP<90, OR Lactate>4 mmol\L) present?: No - <6hrs of presentation: Vital Signs: Vital Signs - 8 hr 02/12/ 16:20 Temp 98.8 F HR 64 RR 18 BP 161/68 O2 Sat % 94 ED Reassessment (Disposition) - Diagnosis Diagnosis:: bilateral heel wounds non healing and small lt le abscess
[2018-02-12 17:42] LABS: % MONOCYTES 8.6 % (2.0-10.0); BASOPHILE ABSOLUTE 0.1 Th/cumm (0-0.2); EOSINOPHILE ABSOLUTE 0.2 Th/cmm (0.1-0.4); LYMPHOCYTE ABSOLUTE 1.5 Th/cmm (1.5-3.0); MONOCYTE ABSOLUTE 0.6 Th/cmm (0.3-1.0)
[2018-02-12 17:44] LABS: % BASOPHILS 2.1 % (0.0-2.0); % EOSINOPHILS 3.1 % (0.0-5.0); % LYMPHOCYTES 21.3 % (20.0-50.0); % NEUTROPHILS 64.9 % (40.0-80.0); HEMATOCRIT 38.9 % (41.0-60); HEMOGLOBIN 13.6 gm/dL (12-16); MEAN CELL VOLUME 85.3 fl (81-100); MEAN CORPUSCULAR HEMOGLOBIN 29.8 pg (27.0-31.0); MEAN CORPUSCULAR HGB CONC 34.9 pg (28.0-36.0); MEAN PLATELET VOLUME 7.1 fl; NEUTROPHILE ABSOLUTE 4.5 Th/cmm (1.8-8.0); PLATELET COUNT 278 Th/cmm (150-400); RED BLOOD COUNT 4.56 Mil/cmm (3.80-5.10); RED CELL DISTRIBUTION WIDTH 12.1 % (11.5-20.0); WHITE BLOOD COUNT 6.9 Th/cmm (4.8-10.8)
[2018-02-12 17:55] LABS: ALB/GLOB RATIO 1.4 (1.0-1.8); ALKALINE PHOSPHATASE 93 U/L (34-104); ANION GAP 12.9 (7.0-16.0); BILIRUBIN,TOTAL 0.6 mg/dL (0.3-1.0); BUN - UREA NITROGEN 20 mg/dL (7-25); CALCIUM SERUM 9.5 mg/dL (8.6-10.3); CARBON DIOXIDE 21.4 mEq/L (21.0-31.0); CHLORIDE 100 mEq/L (98-107); CREATININE - SERUM 1.1 mg/dL (0.6-1.2); GFR AFRICAN-AMERICAN > 60.0 ml/min (>90); GFR NON AFRICAN-AMERICAN 53.1 ml/min; GLUCOSE 361 mg/dL (70-105); POTASSIUM SERUM 4.3 mEq/L (3.5-5.1); SGOT 28 U/L (13-39); SGPT/ALT 55 U/L (7-52); SODIUM SERUM 130 mEq/L (136-145); TOTAL PROTEIN,SERUM 6.8 gm/dL (6.0-8.3)
[2018-02-12] MEDS ORDERED: INSULIN HUMAN REGULAR 100 UNITS/ML UNIT ONE (20:12)
[2018-02-12] MEDS ORDERED: INSULIN HUMAN REGULAR 100 UNITS/ML UNIT IVP ONE (20:30)
[2018-02-12] MEDS ORDERED: INSULIN ASPART SLIDING SCALE 100 UNITS/ML UNIT SUBQ SCH (23:45)
[2018-02-12] MEDS ORDERED: Magnesium Hydroxide (MOM) 30 mL UDC PO PRN (23:48)
[2018-02-12] MEDS ORDERED: Non-Formulary Item 1 EA (Glucagon,Human Recombinant [Glucagon Emergency Kit] 1 MG) IJ PRN (23:48)
[2018-02-12] MEDS ORDERED: Maalox 30 mL Cup PO PRN (23:48)
[2018-02-13] MEDS ORDERED: INSULIN ASPART SLIDING SCALE 100 UNITS/ML UNIT SUBQ SCH
--- NOTE | 2018-02-13 01:08 | Consultation ---
DATE OF CONSULTATION: 02/12/2018 INFECTIOUS DISEASE CONSULTATION REFERRING PHYSICIAN: Irwin Stroud M.D. REASON FOR CONSULTATION: Left leg cellulitis. HISTORY OF PRESENT ILLNESS: The patient is a 62-year-old female with a past medical history of severe dementia, diabetes mellitus type 2, hypertension, hyperlipidemia, brought in from nursing facility for a left leg small wound with surrounding tender erythema. The patient also found to have nonhealing ulcer of the left heel and left knee. On initial evaluation, the patient's temperature was 98.8 degree Fahrenheit and WBC count was 6900. Although, the patient's glucose was elevated at 462, uncontrolled. The patient also found to have left heel ulcer and left knee ulcer. PAST MEDICAL HISTORY: Diabetes mellitus type 2, hypertension, and dementia. MEDICATIONS: As per medication reconciliation sheet. Antibiotic santana, none. ALLERGIES: NKDA. SOCIAL HISTORY: The patient lives in a nursing facility. No history of smoking, alcohol, or drug use. REVIEW OF SYSTEMS: Unable to give any history otherwise. PHYSICAL EXAMINATION: GENERAL: The patient is comfortable, well-nourished, well-developed, not in acute distress. VITAL SIGNS: Show temperature is 99.6 degrees Fahrenheit, pulse is 84, respirations 20, and blood pressure is 110/71. GENERAL: The patient is comfortable, lying in the bed, not in acute distress. HEENT: Head is normocephalic, atraumatic. Oral cavity moist, pink tongue. Eyes: No pallor, no icterus. PERRLA, EOMI. NECK: Supple, no JVD, no bruit. Trachea midline. CHEST: Bilateral breath sounds. No crackles or wheezing. HEART: S1, S2 within normal limits. Regular rhythm and rate. No murmur. No gallop. ABDOMEN: Soft, nontender, nondistended. Bowel sounds present. EXTREMITIES: Left thigh has wound with surrounding tender erythema. Similarly, the patient had left heel ulcer and left knee ulcer. NEUROLOGIC: Unable to communicate. LABORATORY DATA: Current lab shows WBC count is 6900, hemoglobin is 13.6, hematocrit is 38.9, and platelets are 278,000, neutrophil is 65%. Sodium is 130, potassium is 4.3, chloride is 100, bicarbonate is 21.4, BUN is 20, creatinine is 1.1 and glucose is 361. IMPRESSION: 1. Left leg cellulitis. 2. Left knee ulcer and left heel ulcer. 3. Diabetes mellitus type 2. 4. Hypertension. 5. Dementia. RECOMMENDATIONS: We will do the blood cultures and start vancomycin IV as per pharmacy. JOB# [id number]
[2018-02-13 06:04] LABS: % BASOPHILS 1.5 % (0.0-2.0); % EOSINOPHILS 3.5 % (0.0-5.0); % MONOCYTES 10.2 % (2.0-10.0); % NEUTROPHILS 61.8 % (40.0-80.0); BASOPHILE ABSOLUTE 0.1 Th/cumm (0-0.2); EOSINOPHILE ABSOLUTE 0.2 Th/cmm (0.1-0.4); HEMATOCRIT 38.3 % (41.0-60); HEMOGLOBIN 13.2 gm/dL (12-16); LYMPHOCYTE ABSOLUTE 1.6 Th/cmm (1.5-3.0); MEAN CELL VOLUME 85.7 fl (81-100); MEAN CORPUSCULAR HEMOGLOBIN 29.5 pg (27.0-31.0); MEAN CORPUSCULAR HGB CONC 34.4 pg (28.0-36.0); MEAN PLATELET VOLUME 7.4 fl; MONOCYTE ABSOLUTE 0.7 Th/cmm (0.3-1.0); NEUTROPHILE ABSOLUTE 4.2 Th/cmm (1.8-8.0); PLATELET COUNT 281 Th/cmm (150-400); RED BLOOD COUNT 4.47 Mil/cmm (3.80-5.10); RED CELL DISTRIBUTION WIDTH 12.3 % (11.5-20.0); WHITE BLOOD COUNT 6.8 Th/cmm (4.8-10.8)
[2018-02-13 06:13] LABS: ANION GAP 13.3 (7.0-16.0); BUN - UREA NITROGEN 16 mg/dL (7-25); CALCIUM SERUM 9.5 mg/dL (8.6-10.3); CARBON DIOXIDE 19.4 mEq/L (21.0-31.0); CHLORIDE 104 mEq/L (98-107); CREATININE - SERUM 0.9 mg/dL (0.6-1.2); GFR AFRICAN-AMERICAN > 60.0 ml/min (>90); GFR NON AFRICAN-AMERICAN > 60.0 ml/min; POTASSIUM SERUM 3.7 mEq/L (3.5-5.1); SODIUM SERUM 133 mEq/L (136-145)
[2018-02-13 06:14] LABS: GLUCOSE 201 mg/dL (70-105)
[2018-02-13] MEDS: INSULIN ASPART SLIDING SCALE 100 UNITS/ML UNIT SUBQ SCH ×3 (06:29→17:00)
[2018-02-13] MEDS ORDERED: GLUCAGON HCl 1 MG KIT IVP PRN (07:56)
[2018-02-13 07:58] VITALS: BP 140/75
--- NOTE | 2018-02-13 08:45 | Diagnostic Imaging Report ---
Bilateral lower extremity Doppler venous ultrasound exam HISTORY: Pain/swelling Sonographic sector images were obtained through the deep venous systems of both legs. Associated Doppler data was obtained. The exam demonstrates patency of the common femoral, superficial femoral, popliteal, and posterior tibial veins bilaterally. Specifically, no thrombus is seen. There are normal compressibility and augmentation responses. IMPRESSION: Negative exam for deep vein thrombophlebitis.
[2018-02-13] MEDS ORDERED: Non-Formulary Item 1 EA (Amino Acids/Protein Hydrolys [Pro-Stat Awc Liquid Packet] 30 ML) PO SCH (09:00)
[2018-02-13] MEDS ORDERED: Non-Formulary Item 1 EA (Metoprolol Succinate [Metoprolol Succinate] 25 MG) PO SCH (09:00)
[2018-02-13] MEDS ORDERED: Non-Formulary Item 1 EA (Multivitamin [Multivitamins] 1 CAP) PO SCH (09:00)
[2018-02-13] MEDS: Benztropine 1 MG TAB PO SCH ×3 (10:17→21:53)
[2018-02-13] MEDS: Multivitamin Tab PO SCH (10:17)
[2018-02-13] MEDS: Insulin Detemir 100 units/mL 10mL Vial SUBQ SCH ×2 (10:18→16:48)
[2018-02-13 14:06] LABS: URINE MICROSCOPIC INDICATED? YES; URINE SOURCE CATH
[2018-02-13 14:09] LABS: URINE BILIRUBIN NEGATIVE (NEGATIVE); URINE BLOOD NEGATIVE (NEGATIVE); URINE CLARITY CLEAR (CLEAR); URINE COLOR YELLOW; URINE GLUCOSE (UA) 500 mg/dL (NEGATIVE); URINE KETONE NEGATIVE (NEGATIVE); URINE LEUKOCYTE ESTERASE TRACE (NEGATIVE); URINE NITRATE NEGATIVE (NEGATIVE); URINE PROTEIN NEGATIVE (NEGATIVE); URINE UROBILINOGEN 0.2 E.U./dL (0.2 - 1.0)
[2018-02-13 14:11] LABS: URINE BACTERIA NONE SEEN /hpf (NONE SEEN); URINE EPITHELIAL CELLS NONE SEEN /lpf (FEW); URINE RBC NONE SEEN /hpf (0-5)
[2018-02-13 20:46] LABS: A1C % 8.9 % (4.0-6.0)
--- NOTE | 2018-02-13 21:27 | History & Physical ---
ADMIT DATE: 02/12/2018 HISTORY OF PRESENT ILLNESS: A 62-year-old female patient well known to me from [facility]. The patient is known to have history of severe dementia, history of diabetes type 2, history of hypertension, hyperlipidemia and apparently has some nonhealing ulcer on the left heel and left knee and had cellulitis, was brought to the ER and was admitted. The patient's white count was 6900. The patient also had a left heel ulcer and left knee ulcer and the patient was started on IV antibiotics, admitted. PAST MEDICAL HISTORY: 1. Diabetes type 2. 2. Hypertension. 3. Dementia. MEDICATIONS: See the reconciliation sheet. PHYSICAL EXAMINATION: HEAD: Normal. ENT: Normal. LUNGS: Clear. CARDIOVASCULAR SYSTEM: S1, S2 heard. ABDOMEN: Soft. Bowel sounds are heard. EXTREMITIES: Left thigh wound with surrounding tender erythema, left heel ulcer, left knee ulcer and evidence of cellulitis. LABORATORY DATA: BUN was 20, creatinine 1.1 and platelet of 298 and the sugar was high. DIAGNOSES: Left leg ulcer, left leg cellulitis, left knee ulcer, left heel ulcer, diabetes type 2, hypertension, dementia, and history of psychosis. The patient is being admitted. I will go ahead and give IV antibiotic. We will have ID doctor see the patient and also the psych doctor, Dr. Crawford see the patient. I will follow the patient. JOB# [id number]
--- NOTE | 2018-02-13 23:45 | Infectious Disease Prog Note ---
Infectious Disease Subjective - Review of Systems Service Date: 02/13/18 Subjective: Doing well. No fever. Infectious Disease Objective - Results Result Diagrams: 02/13/18 05:27 02/13/18 05:27 Recent Labs: Laboratory Last Values WBC 6.8 Th/cmm (4.8-10.8) 02/13/18 05:27 RBC 4.47 Mil/cmm (3.80-5.10) 02/13/18 05:27 Hgb 13.2 gm/dL (12-16) 02/13/18 05:27 Hct 38.3 % (41.0-60) L 02/13/18 05:27 MCV 85.7 fl (81-100) 02/13/18 05:27 MCH 29.5 pg (27.0-31.0) 02/13/18 05:27 MCHC Differential 34.4 pg (28.0-36.0) 02/13/18 05:27 RDW 12.3 % (11.5-20.0) 02/13/18 05:27 Plt Count 281 Th/cmm (150-400) 02/13/18 05:27 MPV 7.4 fl 02/13/18 05:27 Neutrophils % 61.8 % (40.0-80.0) 02/13/18 05:27 Lymphocytes % 23.0 % (20.0-50.0) 02/13/18 05:27 Monocytes % 10.2 % (2.0-10.0) H 02/13/18 05:27 Eosinophils % 3.5 % (0.0-5.0) 02/13/18 05:27 Basophils % 1.5 % (0.0-2.0) 02/13/18 05:27 Sodium 133 mEq/L (136-145) L 02/13/18 05:27 Potassium 3.7 mEq/L (3.5-5.1) 02/13/18 05:27 Chloride 104 mEq/L (98-107) 02/13/18 05:27 Carbon Dioxide 19.4 mEq/L (21.0-31.0) L 02/13/18 05:27 Anion Gap 13.3 (7.0-16.0) 02/13/18 05:27 BUN 16 mg/dL (7-25) 02/13/18 05:27 Creatinine 0.9 mg/dL (0.6-1.2) 02/13/18 05:27 Est GFR ( Amer) > 60.0 ml/min (>90) 02/13/18 05:27 Est GFR (Non-Af Amer) > 60.0 ml/min 02/13/18 05:27 BUN/Creatinine Ratio 17.8 02/13/18 05:27 Glucose 201 mg/dL (70-105) H D 02/13/18 05:27 POC Glucose 212 MG/DL (70 - 105) H 02/13/18 12:46 Hemoglobin A1c % 8.9 % (4.0-6.0) H 02/12/18 17:30 Whole Bld Lactic Acid 1.66 mmol/L (0.60-1.99) 02/12/18 17:30 Calcium 9.5 mg/dL (8.6-10.3) 02/13/18 05:27 Total Bilirubin 0.6 mg/dL (0.3-1.0) 02/12/18 17:30 AST 28 U/L (13-39) 02/12/18 17:30 ALT 55 U/L (7-52) H 02/12/18 17:30 Alkaline Phosphatase 93 U/L (34-104) 02/12/18 17:30 Total Protein 6.8 gm/dL (6.0-8.3) 02/12/18 17:30 Albumin 4.0 gm/dL (3.7-5.3) 02/12/18 17:30 Globulin 2.8 gm/dL 02/12/18 17:30 Albumin/Globulin Ratio 1.4 (1.0-1.8) 02/12/18 17:30 Urine Source CATH 02/13/18 13:40 Urine Color YELLOW 02/13/18 13:40 Urine Clarity CLEAR (CLEAR) 02/13/18 13:40 Urine pH 6.0 (4.6 - 8.0) 02/13/18 13:40 Ur Specific [place] 1.020 (1.005-1.030) 02/13/18 13:40 Urine Protein NEGATIVE mg/dL (NEGATIVE) 02/13/18 13:40 Urine Glucose (UA) 500 mg/dL (NEGATIVE) H 02/13/18 13:40 Urine Ketones NEGATIVE mg/dL (NEGATIVE) 02/13/18 13:40 Urine Blood NEGATIVE (NEGATIVE) 02/13/18 13:40 Urine Nitrate NEGATIVE (NEGATIVE) 02/13/18 13:40 Urine Bilirubin NEGATIVE (NEGATIVE) 02/13/18 13:40 Urine Urobilinogen 0.2 E.U./dL (0.2 - 1.0) 02/13/18 13:40 Ur Leukocyte Esterase TRACE (NEGATIVE) H 02/13/18 13:40 Urine RBC NONE SEEN /hpf (0-5) 02/13/18 13:40 Urine WBC 2-5 /hpf (0-5) 02/13/18 13:40 Ur Epithelial Cells NONE SEEN /lpf (FEW) 02/13/18 13:40 Urine Bacteria NONE SEEN /hpf (NONE SEEN) 02/13/18 13:40 - Physical Exam Vitals and I&O: Vital Signs Temp 98.5 F 02/13/18 16:05 Pulse 60 02/13/18 21:53 Resp 18 02/13/18 16:05 BP 114/66 02/13/18 21:53 Pulse Ox 98 02/13/18 16:05 Intake & Output 02/13/18 02/13/18 02/14/18 06:59 18:59 06:59 Intake Total 250 240 Balance 250 240 Weight (lbs) 68.039 kg Intake: Intake, IV Amount 250 Vancomycin HCl 1 gm In 250 Sodium Chloride 0.9% 250 ml @ 165 mls/hr IV Q24H [facility] Rx#:[id number] Oral 240 Other: Weight Source Estimated Active Medications: Current Medications Al Hydrox/Mg Hydrox/Simethicone (Maalox) 30 ml PO Q6HR PRN PRN Reason: Indigestion Stop: 04/13/18 23:47 Benztropine Mesylate (Cogentin) 0.5 mg PO BID [facility] Stop: 04/14/18 08:59 Last Admin: 02/13/18 16:44 Dose: 0.5 mg Benztropine Mesylate (Cogentin) 1 mg PO TID [facility] Stop: 04/14/18 08:59 Last Admin: 02/13/18 21:53 Dose: 1 mg Diphenhydramine HCl (Benadryl) 25 mg PO BID [facility] Stop: 04/14/18 08:59 Last Admin: 02/13/18 16:44 Dose: 25 mg Docusate Sodium (Colace) 250 mg PO DAILY [facility] Stop: 04/14/18 08:59 Last Admin: 02/13/18 10:16 Dose: 250 mg Glipizide (Glucotrol) 5 mg PO DAILY [facility] Stop: 04/14/18 08:59 Last Admin: 02/13/18 10:16 Dose: 5 mg Glucagon (Glucagen) 1 mg IVP UD PRN PRN Reason: BLOOD SUGAR Stop: 04/14/18 07:55 Hydralazine HCl (Apresoline) 75 mg PO TID [facility] Stop: 04/14/18 08:59 Last Admin: 02/13/18 21:53 Dose: 75 mg Vancomycin HCl 1 gm/ Sodium (Chloride) 250 mls @ 165 mls/hr IV Q24H [facility] Stop: 04/13/18 22:59 Last Infusion: 02/13/18 01:15 Dose: Infused Insulin Aspart (Novolog Insulin Sliding Scale) 0 units SUBQ Q6HR [facility]; Protocol Stop: 04/14/18 06:29 Last Admin: 02/13/18 17:00 Dose: 6 units Insulin Detemir (Levemir Insulin) 15 units SUBQ BID [facility]; Protocol Stop: 04/14/18 08:59 Last Admin: 02/13/18 16:48 Dose: 15 units Magnesium Hydroxide (Milk Of Magnesia) 30 ml PO DAILY PRN PRN Reason: Constipation Stop: 04/13/18 23:47 Last Admin: 02/13/18 17:03 Dose: 30 ml Metoprolol Tartrate (Lopressor) 25 mg PO DAILY [facility] Stop: 04/14/18 08:59 Last Admin: 02/13/18 10:17 Dose: 25 mg Miscellaneous (Vancomycin Iv Per Pharmacy) 1 ea [facility] PRN PRN PRN Reason: PROTOCOL Stop: 04/13/18 22:40 Multivitamins/Vitamin C (Theragran) 1 tab PO DAILY [facility] Stop: 04/14/18 08:59 Last Admin: 02/13/18 10:17 Dose: 1 tab Psyllium Hydrophilic Mucilloid (Metamucil) 1 pkt PO BID [facility] Stop: 04/14/18 08:59 Last Admin: 02/13/18 16:44 Dose: 1 pkt General: no acute distress, well developed, well nourished HEENT: atraumatic, normocephalic Neck: supple, no thyromegaly Cardiovascular: S1S2, regular Lungs: clear to auscultation bilaterally, clear to percussion Abdomen: soft, no tender, no distended Extremities: other (left leg redness is improving), no cyanosis, no clubbing, no edema Neurological: awake, alert Skin: intact Infectious Disease Assmt/Plan - Assessment Assessment: 1. left leg cellulitis 2. Left knee ulcers on left heel ulcers. 3. Diabetes mellitus type 2. 4. Hypertension. 5. Dementia. - Plan Plan: Continue vancomycin IV. Wound care. Nutritional Asmnt/Malnutr-PDOC - Dietary Evaluation Malnutrition Findings (Please click <Entered> for more info): Nutritional Asmnt/Malnutrition Start: 02/13/18 17: 29 Text: Status: Complete Freq: Protocol: Document 02/13/18 17:29 LCHENG (Rec: 02/13/18 17:37 [email or web address] [id number]) Nutritional Asmnt/Malnutrition Patient General Information Nutritional Screening High Risk Consult Diagnosis DM, non-healing bilateral hell ulcers Pertinent Medical Hx/Surgical Hx HTN, DM, dyslipidemia, bipolar , schizophrenia Subjective Information Pt seen sleeping at time of visit. COnsult received for BS 361 at admission. Per EMR, pt consumed 50% of breakfast this morning. Current Diet Order/ Nutrition Support 1999 ADA Pertinent Medications glucotrol, glucagen, novolog, levemir, theragran Pertinent Labs 02/13 Na 133, glucose 201, POC 212-331 02/12 na 130, Glucose 361, POC 462-471 Nutritional Hx/Data Height 1.63 m Height (Calculated Centimeters) 162.6 Current Weight (lbs) 68.039 kg Weight (Calculated Kilograms) 68.0 Weight (Calculated Grams) 18180.9 [place] Body Weight 120 Body Mass Index (BMI) 25.7 Weight Status Overweight GI Symptoms GI Symptoms None Last BM not indicated Difficult in: None Skin Integrity/Comment: pressure ulcer to leg Current %PO Fair (50-74%) Estimated Nutritional Goals BEE in Kcals: Using Current wt Calories/Kcals/Kg 25-30 Kcals Calculated 7458-0816 Protein: Using Current wt Protein g/k-1.1 Protein Calculated 68-75 Fluid: ml 1700-2040ml (1ml/kcal) Nutritional Problem 2. Problem Problem increased nutrition needs Etiology impaired skin integrity Signs/Symptoms: pressure ulcer 1. Problem Problem altered nutrition related labs Etiology hx of DM Signs/Symptoms: glucose 201-361, POC 212-471 Intervention/Recommendation Comments 1. Continue with diet as ordered. MD to adjust insulin for optimal glycemic control. 2. Monitor PO intake, wt, labs and skin integrity 3. F/U as high risk in 2-3 days, 02/15-02/16 Expected Outcomes/Goals Expected Outcomes/Goals 1. PO intake to meet at least 75% of nutritional needs. 2. Wt stability, skin to remain intact, labs to approach WNL.
[2018-02-14] MEDS: INSULIN ASPART SLIDING SCALE 100 UNITS/ML UNIT SUBQ SCH ×4 (01:07→18:08)
[2018-02-14] MEDS: Benztropine 1 MG TAB PO SCH ×3 (08:50→21:23)
[2018-02-14] MEDS: Multivitamin Tab PO SCH (08:51)
[2018-02-14] MEDS: Insulin Detemir 100 units/mL 10mL Vial SUBQ SCH ×2 (08:51→16:29)
--- NOTE | 2018-02-14 14:19 | Infectious Disease Prog Note ---
Infectious Disease Subjective - Review of Systems Service Date: 02/14/18 Subjective: Doing well. No fever. Infectious Disease Objective - Results Result Diagrams: 02/13/18 05:27 02/13/18 05:27 Recent Labs: Laboratory Last Values WBC 6.8 Th/cmm (4.8-10.8) 02/13/18 05:27 RBC 4.47 Mil/cmm (3.80-5.10) 02/13/18 05:27 Hgb 13.2 gm/dL (12-16) 02/13/18 05:27 Hct 38.3 % (41.0-60) L 02/13/18 05:27 MCV 85.7 fl (81-100) 02/13/18 05:27 MCH 29.5 pg (27.0-31.0) 02/13/18 05:27 MCHC Differential 34.4 pg (28.0-36.0) 02/13/18 05:27 RDW 12.3 % (11.5-20.0) 02/13/18 05:27 Plt Count 281 Th/cmm (150-400) 02/13/18 05:27 MPV 7.4 fl 02/13/18 05:27 Neutrophils % 61.8 % (40.0-80.0) 02/13/18 05:27 Lymphocytes % 23.0 % (20.0-50.0) 02/13/18 05:27 Monocytes % 10.2 % (2.0-10.0) H 02/13/18 05:27 Eosinophils % 3.5 % (0.0-5.0) 02/13/18 05:27 Basophils % 1.5 % (0.0-2.0) 02/13/18 05:27 Sodium 133 mEq/L (136-145) L 02/13/18 05:27 Potassium 3.7 mEq/L (3.5-5.1) 02/13/18 05:27 Chloride 104 mEq/L (98-107) 02/13/18 05:27 Carbon Dioxide 19.4 mEq/L (21.0-31.0) L 02/13/18 05:27 Anion Gap 13.3 (7.0-16.0) 02/13/18 05:27 BUN 16 mg/dL (7-25) 02/13/18 05:27 Creatinine 0.9 mg/dL (0.6-1.2) 02/13/18 05:27 Est GFR ( Amer) > 60.0 ml/min (>90) 02/13/18 05:27 Est GFR (Non-Af Amer) > 60.0 ml/min 02/13/18 05:27 BUN/Creatinine Ratio 17.8 02/13/18 05:27 Glucose 201 mg/dL (70-105) H D 02/13/18 05:27 POC Glucose 241 MG/DL (70 - 105) H 02/14/18 12:25 Hemoglobin A1c % 8.9 % (4.0-6.0) H 02/12/18 17:30 Whole Bld Lactic Acid 1.66 mmol/L (0.60-1.99) 02/12/18 17:30 Calcium 9.5 mg/dL (8.6-10.3) 02/13/18 05:27 Total Bilirubin 0.6 mg/dL (0.3-1.0) 02/12/18 17:30 AST 28 U/L (13-39) 02/12/18 17:30 ALT 55 U/L (7-52) H 02/12/18 17:30 Alkaline Phosphatase 93 U/L (34-104) 02/12/18 17:30 Total Protein 6.8 gm/dL (6.0-8.3) 02/12/18 17:30 Albumin 4.0 gm/dL (3.7-5.3) 02/12/18 17:30 Globulin 2.8 gm/dL 02/12/18 17:30 Albumin/Globulin Ratio 1.4 (1.0-1.8) 02/12/18 17:30 Urine Source CATH 02/13/18 13:40 Urine Color YELLOW 02/13/18 13:40 Urine Clarity CLEAR (CLEAR) 02/13/18 13:40 Urine pH 6.0 (4.6 - 8.0) 02/13/18 13:40 Ur Specific [place] 1.020 (1.005-1.030) 02/13/18 13:40 Urine Protein NEGATIVE mg/dL (NEGATIVE) 02/13/18 13:40 Urine Glucose (UA) 500 mg/dL (NEGATIVE) H 02/13/18 13:40 Urine Ketones NEGATIVE mg/dL (NEGATIVE) 02/13/18 13:40 Urine Blood NEGATIVE (NEGATIVE) 02/13/18 13:40 Urine Nitrate NEGATIVE (NEGATIVE) 02/13/18 13:40 Urine Bilirubin NEGATIVE (NEGATIVE) 02/13/18 13:40 Urine Urobilinogen 0.2 E.U./dL (0.2 - 1.0) 02/13/18 13:40 Ur Leukocyte Esterase TRACE (NEGATIVE) H 02/13/18 13:40 Urine RBC NONE SEEN /hpf (0-5) 02/13/18 13:40 Urine WBC 2-5 /hpf (0-5) 02/13/18 13:40 Ur Epithelial Cells NONE SEEN /lpf (FEW) 02/13/18 13:40 Urine Bacteria NONE SEEN /hpf (NONE SEEN) 02/13/18 13:40 - Physical Exam Vitals and I&O: Vital Signs Temp 99.0 F 02/14/18 04:00 Pulse 58 02/14/18 14:12 Resp 19 02/14/18 04:00 BP 120/58 02/14/18 14:12 Pulse Ox 97 02/14/18 04:00 Intake & Output 02/13/18 02/14/18 02/14/18 18:59 06:59 18:59 Intake Total 240 Balance 240 Weight (lbs) 68.039 kg Intake: Oral 240 Other: # Voids 1 Weight Source Estimated Active Medications: Current Medications Al Hydrox/Mg Hydrox/Simethicone (Maalox) 30 ml PO Q6HR PRN PRN Reason: Indigestion Stop: 04/13/18 23:47 Benztropine Mesylate (Cogentin) 0.5 mg PO BID [facility]PL[facility]ED BY [facility] Stop: 04/14/18 08:59 Last Admin: 02/14/18 08:50 Dose: 0.5 mg Benztropine Mesylate (Cogentin) 1 mg PO TID [facility] BY [facility] Stop: 04/14/18 08:59 Last Admin: 02/14/18 14:12 Dose: 1 mg Diphenhydramine HCl (Benadryl) 25 mg PO BID [facility] Stop: 04/14/18 08:59 Last Admin: 02/14/18 08:50 Dose: 25 mg Docusate Sodium (Colace) 250 mg PO DAILY [facility] Stop: 04/14/18 08:59 Last Admin: 02/14/18 08:50 Dose: 250 mg Glipizide (Glucotrol) 5 mg PO DAILY [facility] Stop: 04/14/18 08:59 Last Admin: 02/14/18 08:50 Dose: 5 mg Glucagon (Glucagen) 1 mg IVP UD PRN PRN Reason: BLOOD SUGAR Stop: 04/14/18 07:55 Hydralazine HCl (Apresoline) 75 mg PO TID [facility]PL[facility] BY [facility] Stop: 04/14/18 08:59 Last Admin: 02/14/18 14:12 Dose: 75 mg Vancomycin HCl 1 gm/ Sodium (Chloride) 250 mls @ 165 mls/hr IV Q24H REPLACED BY [facility] Stop: 04/13/18 22:59 Last Admin: 02/14/18 01:04 Dose: 167 mls/hr Insulin Aspart (Novolog Insulin Sliding Scale) 0 units SUBQ Q6HR REPLACED BY [facility]; Protocol Stop: 04/14/18 06:29 Last Admin: 02/14/18 12:42 Dose: 4 units Insulin Detemir (Levemir Insulin) 15 units SUBQ BID [facility] BY [facility]; Protocol Stop: 04/14/18 08:59 Last Admin: 02/14/18 08:51 Dose: 15 units Magnesium Hydroxide (Milk Of Magnesia) 30 ml PO DAILY PRN PRN Reason: Constipation Stop: 04/13/18 23:47 Last Admin: 02/13/18 17:03 Dose: 30 ml Metoprolol Tartrate (Lopressor) 25 mg PO DAILY [facility] Stop: 04/14/18 08:59 Last Admin: 02/14/18 08:50 Dose: 25 mg Miscellaneous (Vancomycin Iv Per Pharmacy) 1 ea [facility] PRN PRN PRN Reason: PROTOCOL Stop: 04/13/18 22:40 Multivitamins/Vitamin C (Theragran) 1 tab PO DAILY [facility]PL[facility] BY [facility] Stop: 04/14/18 08:59 Last Admin: 02/14/18 08:51 Dose: 1 tab Psyllium Hydrophilic Mucilloid (Metamucil) 1 pkt PO BID [facility]PL[facility] BY [facility] Stop: 04/14/18 08:59 Last Admin: 02/14/18 08:47 Dose: 1 pkt General: no acute distress, well developed, well nourished HEENT: atraumatic, normocephalic, PERRLA, EOMI Neck: supple, no thyromegaly, no lymphadenopathy Cardiovascular: S1S2, regular Lungs: clear to auscultation bilaterally, clear to percussion Abdomen: soft, no tender, no distended Extremities: other (left leg erythema improving), no cyanosis, no clubbing, no edema Neurological: awake, alert Infectious Disease Assmt/Plan - Assessment Assessment: 1. left leg cellulitis 2. Left knee ulcers and left heel ulcers. 3. Diabetes mellitus type 2. 4. Hypertension. 5. Dementia. - Plan Plan: Continue vancomycin IV. Wound care. Nutritional Asmnt/Malnutr-PDOC - Dietary Evaluation Malnutrition Findings (Please click <Entered> for more info): Nutritional Asmnt/Malnutrition Start: 02/13/18 17: 29 Text: Status: Complete Freq: Protocol: Document 02/13/18 17:29 JENIFERG (Rec: 02/13/18 17:37 [email or web address] [id number]) Nutritional Asmnt/Malnutrition Patient General Information Nutritional Screening High Risk Consult Diagnosis DM, non-healing bilateral hell ulcers Pertinent Medical Hx/Surgical Hx HTN, DM, dyslipidemia, bipolar , schizophrenia Subjective Information Pt seen sleeping at time of visit. COnsult received for BS 361 at admission. Per EMR, pt consumed 50% of breakfast this morning. Current Diet Order/ Nutrition Support 1999 ADA Pertinent Medications glucotrol, glucagen, novolog, levemir, theragran Pertinent Labs 02/13 Na 133, glucose 201, POC 212-331 02/12 na 130, Glucose 361, POC 462-471 Nutritional Hx/Data Height 1.63 m Height (Calculated Centimeters) 162.6 Current Weight (lbs) 68.039 kg Weight (Calculated Kilograms) 68.0 Weight (Calculated Grams) 84435.9 [place] Body Weight 120 Body Mass Index (BMI) 25.7 Weight Status Overweight GI Symptoms GI Symptoms None Last BM not indicated Difficult in: None Skin Integrity/Comment: pressure ulcer to leg Current %PO Fair (50-74%) Estimated Nutritional Goals BEE in Kcals: Using Current wt Calories/Kcals/Kg 25-30 Kcals Calculated 6213-4952 Protein: Using Current wt Protein g/k-1.1 Protein Calculated 68-75 Fluid: ml 1700-2040ml (1ml/kcal) Nutritional Problem 2. Problem Problem increased nutrition needs Etiology impaired skin integrity Signs/Symptoms: pressure ulcer 1. Problem Problem altered nutrition related labs Etiology hx of DM Signs/Symptoms: glucose 201-361, POC 212-471 Intervention/Recommendation Comments 1. Continue with diet as ordered. MD to adjust insulin for optimal glycemic control. 2. Monitor PO intake, wt, labs and skin integrity 3. F/U as high risk in 2-3 days, 02/15-02/16 Expected Outcomes/Goals Expected Outcomes/Goals 1. PO intake to meet at least 75% of nutritional needs. 2. Wt stability, skin to remain intact, labs to approach WNL.
--- NOTE | 2018-02-14 14:44 | Internal Medicine Prog Note ---
Internal Medicine Subjective - Subjective Service Date: 02/14/18 Patient seen and examined:: with staff Patient is:: awake Per staff patient has:: tolerating meds Internal Medicine Objective - Results Result Diagrams: 02/13/18 05:27 02/13/18 05:27 Recent Labs: Laboratory Last Values WBC 6.8 Th/cmm (4.8-10.8) 02/13/18 05:27 RBC 4.47 Mil/cmm (3.80-5.10) 02/13/18 05:27 Hgb 13.2 gm/dL (12-16) 02/13/18 05:27 Hct 38.3 % (41.0-60) L 02/13/18 05:27 MCV 85.7 fl (81-100) 02/13/18 05:27 MCH 29.5 pg (27.0-31.0) 02/13/18 05:27 MCHC Differential 34.4 pg (28.0-36.0) 02/13/18 05:27 RDW 12.3 % (11.5-20.0) 02/13/18 05:27 Plt Count 281 Th/cmm (150-400) 02/13/18 05:27 MPV 7.4 fl 02/13/18 05:27 Neutrophils % 61.8 % (40.0-80.0) 02/13/18 05:27 Lymphocytes % 23.0 % (20.0-50.0) 02/13/18 05:27 Monocytes % 10.2 % (2.0-10.0) H 02/13/18 05:27 Eosinophils % 3.5 % (0.0-5.0) 02/13/18 05:27 Basophils % 1.5 % (0.0-2.0) 02/13/18 05:27 Sodium 133 mEq/L (136-145) L 02/13/18 05:27 Potassium 3.7 mEq/L (3.5-5.1) 02/13/18 05:27 Chloride 104 mEq/L (98-107) 02/13/18 05:27 Carbon Dioxide 19.4 mEq/L (21.0-31.0) L 02/13/18 05:27 Anion Gap 13.3 (7.0-16.0) 02/13/18 05:27 BUN 16 mg/dL (7-25) 02/13/18 05:27 Creatinine 0.9 mg/dL (0.6-1.2) 02/13/18 05:27 Est GFR ( Amer) > 60.0 ml/min (>90) 02/13/18 05:27 Est GFR (Non-Af Amer) > 60.0 ml/min 02/13/18 05:27 BUN/Creatinine Ratio 17.8 02/13/18 05:27 Glucose 201 mg/dL (70-105) H D 02/13/18 05:27 POC Glucose 241 MG/DL (70 - 105) H 02/14/18 12:25 Hemoglobin A1c % 8.9 % (4.0-6.0) H 02/12/18 17:30 Whole Bld Lactic Acid 1.66 mmol/L (0.60-1.99) 02/12/18 17:30 Calcium 9.5 mg/dL (8.6-10.3) 02/13/18 05:27 Total Bilirubin 0.6 mg/dL (0.3-1.0) 02/12/18 17:30 AST 28 U/L (13-39) 02/12/18 17:30 ALT 55 U/L (7-52) H 02/12/18 17:30 Alkaline Phosphatase 93 U/L (34-104) 02/12/18 17:30 Total Protein 6.8 gm/dL (6.0-8.3) 02/12/18 17:30 Albumin 4.0 gm/dL (3.7-5.3) 02/12/18 17:30 Globulin 2.8 gm/dL 02/12/18 17:30 Albumin/Globulin Ratio 1.4 (1.0-1.8) 02/12/18 17:30 Urine Source CATH 02/13/18 13:40 Urine Color YELLOW 02/13/18 13:40 Urine Clarity CLEAR (CLEAR) 02/13/18 13:40 Urine pH 6.0 (4.6 - 8.0) 02/13/18 13:40 Ur Specific [place] 1.020 (1.005-1.030) 02/13/18 13:40 Urine Protein NEGATIVE mg/dL (NEGATIVE) 02/13/18 13:40 Urine Glucose (UA) 500 mg/dL (NEGATIVE) H 02/13/18 13:40 Urine Ketones NEGATIVE mg/dL (NEGATIVE) 02/13/18 13:40 Urine Blood NEGATIVE (NEGATIVE) 02/13/18 13:40 Urine Nitrate NEGATIVE (NEGATIVE) 02/13/18 13:40 Urine Bilirubin NEGATIVE (NEGATIVE) 02/13/18 13:40 Urine Urobilinogen 0.2 E.U./dL (0.2 - 1.0) 02/13/18 13:40 Ur Leukocyte Esterase TRACE (NEGATIVE) H 02/13/18 13:40 Urine RBC NONE SEEN /hpf (0-5) 02/13/18 13:40 Urine WBC 2-5 /hpf (0-5) 02/13/18 13:40 Ur Epithelial Cells NONE SEEN /lpf (FEW) 02/13/18 13:40 Urine Bacteria NONE SEEN /hpf (NONE SEEN) 02/13/18 13:40 - Physical Exam Vitals and I&O: Vital Signs Temp 99.0 F 02/14/18 04:00 Pulse 58 02/14/18 14:12 Resp 19 02/14/18 04:00 BP 120/58 02/14/18 14:12 Pulse Ox 97 02/14/18 04:00 Intake & Output 02/13/18 02/14/18 02/14/18 18:59 06:59 18:59 Intake Total 240 Balance 240 Weight (lbs) 150 lb Intake: Oral 240 Other: # Voids 1 Weight Source Estimated Active Medications: Current Medications Al Hydrox/Mg Hydrox/Simethicone (Maalox) 30 ml PO Q6HR PRN PRN Reason: Indigestion Stop: 04/13/18 23:47 Benztropine Mesylate (Cogentin) 0.5 mg PO BID [facility] Stop: 04/14/18 08:59 Last Admin: 02/14/18 08:50 Dose: 0.5 mg Benztropine Mesylate (Cogentin) 1 mg PO TID [facility] Stop: 04/14/18 08:59 Last Admin: 02/14/18 14:12 Dose: 1 mg Diphenhydramine HCl (Benadryl) 25 mg PO BID [facility] Stop: 04/14/18 08:59 Last Admin: 02/14/18 08:50 Dose: 25 mg Docusate Sodium (Colace) 250 mg PO DAILY [facility] Stop: 04/14/18 08:59 Last Admin: 02/14/18 08:50 Dose: 250 mg Glipizide (Glucotrol) 5 mg PO DAILY [facility] Stop: 04/14/18 08:59 Last Admin: 02/14/18 08:50 Dose: 5 mg Glucagon (Glucagen) 1 mg IVP UD PRN PRN Reason: BLOOD SUGAR Stop: 04/14/18 07:55 Hydralazine HCl (Apresoline) 75 mg PO TID [facility] Stop: 04/14/18 08:59 Last Admin: 02/14/18 14:12 Dose: 75 mg Vancomycin HCl 1 gm/ Sodium (Chloride) 250 mls @ 165 mls/hr IV Q24H [facility] Stop: 04/13/18 22:59 Last Admin: 02/14/18 01:04 Dose: 167 mls/hr Insulin Aspart (Novolog Insulin Sliding Scale) 0 units SUBQ Q6HR [facility]; Protocol Stop: 04/14/18 06:29 Last Admin: 02/14/18 12:42 Dose: 4 units Insulin Detemir (Levemir Insulin) 15 units SUBQ BID [facility]; Protocol Stop: 04/14/18 08:59 Last Admin: 02/14/18 08:51 Dose: 15 units Magnesium Hydroxide (Milk Of Magnesia) 30 ml PO DAILY PRN PRN Reason: Constipation Stop: 04/13/18 23:47 Last Admin: 02/13/18 17:03 Dose: 30 ml Metoprolol Tartrate (Lopressor) 25 mg PO DAILY [facility] Stop: 04/14/18 08:59 Last Admin: 02/14/18 08:50 Dose: 25 mg Miscellaneous (Vancomycin Iv Per Pharmacy) 1 ea MC PRN PRN PRN Reason: PROTOCOL Stop: 04/13/18 22:40 Multivitamins/Vitamin C (Theragran) 1 tab PO DAILY [facility] Stop: 04/14/18 08:59 Last Admin: 02/14/18 08:51 Dose: 1 tab Psyllium Hydrophilic Mucilloid (Metamucil) 1 pkt PO BID [facility] Stop: 04/14/18 08:59 Last Admin: 02/14/18 08:47 Dose: 1 pkt General: alert HEENT: NC/AT, PERRLA Neck: Supple Lungs: CTAB Cardiovascular: RRR, Normal S1, without murmur Neurological: alert Internal Medicine Assmt/Plan - Assessment Assessment: left leg cellulitis Left knee ulcers and left heel ulcers. Diabetes mellitus type 2. Hypertension. Dementia. . - Plan Plan: continue ivabx as per id follow up labs in am continue current plan of care Nutritional Asmnt/Malnutr-PDOC - Dietary Evaluation Malnutrition Findings (Please click <Entered> for more info): Nutritional Asmnt/Malnutrition Start: 02/13/18 17: 29 Text: Status: Complete Freq: Protocol: Document 02/13/18 17:29 LCHENG (Rec: 02/13/18 17:37 [email or web address] Nutritional Asmnt/Malnutrition Patient General Information Nutritional Screening High Risk Consult Diagnosis DM, non-healing bilateral hell ulcers Pertinent Medical Hx/Surgical Hx HTN, DM, dyslipidemia, bipolar , schizophrenia Subjective Information Pt seen sleeping at time of visit. COnsult received for BS 361 at admission. Per EMR, pt consumed 50% of breakfast this morning. Current Diet Order/ Nutrition Support 1999 ADA Pertinent Medications glucotrol, glucagen, novolog, levemir, theragran Pertinent Labs 02/13 Na 133, glucose 201, POC 212-331 02/12 na 130, Glucose 361, POC 462-471 Nutritional Hx/Data Height 5 ft 4 in Height (Calculated Centimeters) 162.6 Current Weight (lbs) 150 lb Weight (Calculated Kilograms) 68.0 Weight (Calculated Grams) 92937.9 [place] Body Weight 120 Body Mass Index (BMI) 25.7 Weight Status Overweight GI Symptoms GI Symptoms None Last BM not indicated Difficult in: None Skin Integrity/Comment: pressure ulcer to leg Current %PO Fair (50-74%) Estimated Nutritional Goals BEE in Kcals: Using Current wt Calories/Kcals/Kg 25-30 Kcals Calculated 4224-5719 Protein: Using Current wt Protein g/k-1.1 Protein Calculated 68-75 Fluid: ml 1700-2040ml (1ml/kcal) Nutritional Problem 2. Problem Problem increased nutrition needs Etiology impaired skin integrity Signs/Symptoms: pressure ulcer 1. Problem Problem altered nutrition related labs Etiology hx of DM Signs/Symptoms: glucose 201-361, POC 212-471 Intervention/Recommendation Comments 1. Continue with diet as ordered. MD to adjust insulin for optimal glycemic control. 2. Monitor PO intake, wt, labs and skin integrity 3. F/U as high risk in 2-3 days, 02/15-02/16 Expected Outcomes/Goals Expected Outcomes/Goals 1. PO intake to meet at least 75% of nutritional needs. 2. Wt stability, skin to remain intact, labs to approach WNL.
--- NOTE | 2018-02-14 18:24 | Consultation ---
DATE OF CONSULTATION: 02/14/2018 HISTORY OF PRESENT ILLNESS: A 62-year-old female coming from [facility], history of dementia, diabetes, hypertension, hyperlipidemia, nonhealing ulcers, high white counts; admitted for IV antibiotic treatment. On [id number], the patient knows she feels depressed, down, and upset about being in the hospital, states that she is in the hospital for "back pain." States that she has had back pain for a year and she has had depression for a year. She states that she has difficulty sleeping, fair appetite. She states she would like to get better. She is hopeful to get better. PAST PSYCHIATRIC HISTORY: Apparent history of dementia. Denies any suicide history. PAST MEDICAL HISTORY: Left leg cellulitis, left knee ulcer, left heel ulcers, diabetes, and hypertension. SOCIAL HISTORY: The patient states she was born in [place]. for a year. She has no kids. She states that she lives with her mother in [place]. No drugs, no alcohol, no tobacco. MEDICATIONS: Noted. MENTAL STATUS EXAMINATION: Stated age, little eye contact, appearing somewhat disoriented, and confused. Mood: "A little down." Affect flat. Thought processes were disoriented. No SI, no HI, no intent, no plan. No overt psychotic symptoms. Insight and judgment seemed diminished. PROVISIONAL DIAGNOSIS: Dementia per documentation, mood unspecified. MEDICAL: Please see full H and P. RECOMMENDATIONS AND PLAN: Recommend initiation of Namenda. Recommend if possible to taper benztropine, as it can worsen cognitive impairment, especially in the elderly population. We will continue to monitor. Monitor for any behavioural disturbances. [facility]# [id number]
[2018-02-15] MEDS: INSULIN ASPART SLIDING SCALE 100 UNITS/ML UNIT SUBQ SCH ×4 (00:23→18:05)
[2018-02-15 06:24] LABS: % BASOPHILS 1.6 % (0.0-2.0); % EOSINOPHILS 2.5 % (0.0-5.0); % LYMPHOCYTES 21.6 % (20.0-50.0); % MONOCYTES 8.5 % (2.0-10.0); % NEUTROPHILS 65.8 % (40.0-80.0); BASOPHILE ABSOLUTE 0.1 Th/cumm (0-0.2); EOSINOPHILE ABSOLUTE 0.2 Th/cmm (0.1-0.4); HEMATOCRIT 37.2 % (41.0-60); HEMOGLOBIN 12.6 gm/dL (12-16); LYMPHOCYTE ABSOLUTE 1.6 Th/cmm (1.5-3.0); MEAN CORPUSCULAR HEMOGLOBIN 29.2 pg (27.0-31.0); MEAN CORPUSCULAR HGB CONC 33.9 pg (28.0-36.0); MEAN PLATELET VOLUME 7.4 fl; MONOCYTE ABSOLUTE 0.6 Th/cmm (0.3-1.0); PLATELET COUNT 289 Th/cmm (150-400); RED BLOOD COUNT 4.32 Mil/cmm (3.80-5.10); RED CELL DISTRIBUTION WIDTH 12.5 % (11.5-20.0); WHITE BLOOD COUNT 7.5 Th/cmm (4.8-10.8)
[2018-02-15 06:32] LABS: ANION GAP 12.8 (7.0-16.0); BUN - UREA NITROGEN 18 mg/dL (7-25); CARBON DIOXIDE 18.9 mEq/L (21.0-31.0); CHLORIDE 103 mEq/L (98-107); CREATININE - SERUM 0.9 mg/dL (0.6-1.2); GFR AFRICAN-AMERICAN > 60.0 ml/min (>90); GFR NON AFRICAN-AMERICAN > 60.0 ml/min; GLUCOSE 280 mg/dL (70-105); POTASSIUM SERUM 3.7 mEq/L (3.5-5.1); SODIUM SERUM 131 mEq/L (136-145)
[2018-02-15] MEDS: Benztropine 1 MG TAB PO SCH ×2 (08:09→14:29)
[2018-02-15] MEDS: Multivitamin Tab PO SCH (08:09)
[2018-02-15] MEDS: Insulin Detemir 100 units/mL 10mL Vial SUBQ SCH ×2 (08:10→18:05)
[2018-02-15] MEDS ORDERED: Venelex 60gm Tube TP SCH (09:00)
--- NOTE | 2018-02-15 09:14 | General Progress Note ---
Subjective - Review of Systems Events since last encounter: patient awake mood is depressed c/o back pain no fever Objective - Results Result Diagrams: 02/15/18 05:15 02/15/18 05:15 Recent Labs: Laboratory Last Values WBC 7.5 Th/cmm (4.8-10.8) 02/15/18 05:15 RBC 4.32 Mil/cmm (3.80-5.10) 02/15/18 05:15 Hgb 12.6 gm/dL (12-16) 02/15/18 05:15 Hct 37.2 % (41.0-60) L 02/15/18 05:15 MCV 86.0 fl (81-100) 02/15/18 05:15 MCH 29.2 pg (27.0-31.0) 02/15/18 05:15 MCHC Differential 33.9 pg (28.0-36.0) 02/15/18 05:15 RDW 12.5 % (11.5-20.0) 02/15/18 05:15 Plt Count 289 Th/cmm (150-400) 02/15/18 05:15 MPV 7.4 fl 02/15/18 05:15 Neutrophils % 65.8 % (40.0-80.0) 02/15/18 05:15 Lymphocytes % 21.6 % (20.0-50.0) 02/15/18 05:15 Monocytes % 8.5 % (2.0-10.0) 02/15/18 05:15 Eosinophils % 2.5 % (0.0-5.0) 02/15/18 05:15 Basophils % 1.6 % (0.0-2.0) 02/15/18 05:15 Sodium 131 mEq/L (136-145) L 02/15/18 05:15 Potassium 3.7 mEq/L (3.5-5.1) 02/15/18 05:15 Chloride 103 mEq/L (98-107) 02/15/18 05:15 Carbon Dioxide 18.9 mEq/L (21.0-31.0) L 02/15/18 05:15 Anion Gap 12.8 (7.0-16.0) 02/15/18 05:15 BUN 18 mg/dL (7-25) 02/15/18 05:15 Creatinine 0.9 mg/dL (0.6-1.2) 02/15/18 05:15 Est GFR ( Amer) > 60.0 ml/min (>90) 02/15/18 05:15 Est GFR (Non-Af Amer) > 60.0 ml/min 02/15/18 05:15 BUN/Creatinine Ratio 20.0 02/15/18 05:15 Glucose 280 mg/dL (70-105) H 02/15/18 05:15 POC Glucose 272 MG/DL (70-105) H 02/15/18 06:21 Hemoglobin A1c % 8.9 % (4.0-6.0) H 02/12/18 17:30 Whole Bld Lactic Acid 1.66 mmol/L (0.60-1.99) 02/12/18 17:30 Calcium 9.0 mg/dL (8.6-10.3) 02/15/18 05:15 Total Bilirubin 0.6 mg/dL (0.3-1.0) 02/12/18 17:30 AST 28 U/L (13-39) 02/12/18 17:30 ALT 55 U/L (7-52) H 02/12/18 17:30 Alkaline Phosphatase 93 U/L (34-104) 02/12/18 17:30 Total Protein 6.8 gm/dL (6.0-8.3) 02/12/18 17:30 Albumin 4.0 gm/dL (3.7-5.3) 02/12/18 17:30 Globulin 2.8 gm/dL 02/12/18 17:30 Albumin/Globulin Ratio 1.4 (1.0-1.8) 02/12/18 17:30 Urine Source CATH 02/13/18 13:40 Urine Color YELLOW 02/13/18 13:40 Urine Clarity CLEAR (CLEAR) 02/13/18 13:40 Urine pH 6.0 (4.6 - 8.0) 02/13/18 13:40 Ur Specific [place] 1.020 (1.005-1.030) 02/13/18 13:40 Urine Protein NEGATIVE mg/dL (NEGATIVE) 02/13/18 13:40 Urine Glucose (UA) 500 mg/dL (NEGATIVE) H 02/13/18 13:40 Urine Ketones NEGATIVE mg/dL (NEGATIVE) 02/13/18 13:40 Urine Blood NEGATIVE (NEGATIVE) 02/13/18 13:40 Urine Nitrate NEGATIVE (NEGATIVE) 02/13/18 13:40 Urine Bilirubin NEGATIVE (NEGATIVE) 02/13/18 13:40 Urine Urobilinogen 0.2 E.U./dL (0.2 - 1.0) 02/13/18 13:40 Ur Leukocyte Esterase TRACE (NEGATIVE) H 02/13/18 13:40 Urine RBC NONE SEEN /hpf (0-5) 02/13/18 13:40 Urine WBC 2-5 /hpf (0-5) 02/13/18 13:40 Ur Epithelial Cells NONE SEEN /lpf (FEW) 02/13/18 13:40 Urine Bacteria NONE SEEN /hpf (NONE SEEN) 02/13/18 13:40 - Physical Exam Vitals and I&O: Vital Signs Temp 98.1 F 02/15/18 07:36 Pulse 63 02/15/18 08:10 Resp 18 02/15/18 07:36 BP 130/74 02/15/18 08:10 Pulse Ox 99 02/15/18 07:36 Intake & Output 02/14/18 02/15/18 02/15/18 18:59 06:59 18:59 Intake Total 450 Balance 450 Weight (lbs) 54.885 kg 54.431 kg Intake: Oral 450 Other: # Voids 3 2 # Bowel Movements 0 Weight Source Bedscale Bedscale Active Medications: Current Medications Al Hydrox/Mg Hydrox/Simethicone (Maalox) 30 ml PO Q6HR PRN PRN Reason: Indigestion Stop: 04/13/18 23:47 Benztropine Mesylate (Cogentin) 0.5 mg PO BID [facility] Stop: 04/14/18 08:59 Last Admin: 02/15/18 08:09 Dose: 0.5 mg Benztropine Mesylate (Cogentin) 1 mg PO TID [facility] Stop: 04/14/18 08:59 Last Admin: 02/15/18 08:09 Dose: 1 mg [place] Oil/[place] Balsam/Trypsin (Venelex) 1 appl TP DAILY [facility] Stop: 04/16/18 08:59 Last Admin: 02/15/18 08:11 Dose: 1 appl Diphenhydramine HCl (Benadryl) 25 mg PO BID [facility] Stop: 04/14/18 08:59 Last Admin: 02/15/18 08:09 Dose: 25 mg Docusate Sodium (Colace) 250 mg PO DAILY [facility] Stop: 04/14/18 08:59 Last Admin: 02/15/18 08:10 Dose: 250 mg Glipizide (Glucotrol) 5 mg PO DAILY [facility] Stop: 04/14/18 08:59 Last Admin: 02/15/18 08:09 Dose: 5 mg Glucagon (Glucagen) 1 mg IVP UD PRN PRN Reason: BLOOD SUGAR Stop: 04/14/18 07:55 Hydralazine HCl (Apresoline) 75 mg PO TID [facility] Stop: 04/14/18 08:59 Last Admin: 02/15/18 08:10 Dose: 75 mg Vancomycin HCl 1 gm/ Sodium (Chloride) 250 mls @ 165 mls/hr IV Q24H [facility] Stop: 04/13/18 22:59 Last Admin: 02/14/18 22:11 Dose: 167 mls/hr Insulin Aspart (Novolog Insulin Sliding Scale) 0 units SUBQ Q6HR [facility]; Protocol Stop: 04/14/18 06:29 Last Admin: 02/15/18 07:54 Dose: 6 units Insulin Detemir (Levemir Insulin) 15 units SUBQ BID [facility]; Protocol Stop: 04/14/18 08:59 Last Admin: 02/15/18 08:10 Dose: 15 units Lorazepam (Ativan) 1 mg PO Q4HR PRN; Protocol PRN Reason: Agitation Stop: 04/15/18 21:51 Last Admin: 02/15/18 08:10 Dose: 1 mg Magnesium Hydroxide (Milk Of Magnesia) 30 ml PO DAILY PRN PRN Reason: Constipation Stop: 04/13/18 23:47 Last Admin: 02/13/18 17:03 Dose: 30 ml Memantine (Namenda) 5 mg PO DAILY [facility] Stop: 04/16/18 08:59 Last Admin: 02/15/18 08:09 Dose: 5 mg Metoprolol Tartrate (Lopressor) 25 mg PO DAILY [facility] Stop: 04/14/18 08:59 Last Admin: 02/15/18 08:09 Dose: 25 mg Miscellaneous (Vancomycin Iv Per Pharmacy) 1 ea MC PRN PRN PRN Reason: PROTOCOL Stop: 04/13/18 22:40 Multivitamins/Vitamin C (Theragran) 1 tab PO DAILY [facility] Stop: 04/14/18 08:59 Last Admin: 02/15/18 08:09 Dose: 1 tab Psyllium Hydrophilic Mucilloid (Metamucil) 1 pkt PO BID [facility] Stop: 04/14/18 08:59 Last Admin: 02/15/18 08:10 Dose: 1 pkt Nutritional Asmnt/Malnutr-PDOC - Dietary Evaluation Malnutrition Findings (Please click <Entered> for more info): Nutritional Asmnt/Malnutrition Start: 02/13/18 17: 29 Text: Status: Complete Freq: Protocol: Document 02/13/18 17:29 PARAS (Rec: 02/13/18 17:37 [facility]AS [email or web address]) Nutritional Asmnt/Malnutrition Patient General Information Nutritional Screening High Risk Consult Diagnosis DM, non-healing bilateral hell ulcers Pertinent Medical Hx/Surgical Hx HTN, DM, dyslipidemia, bipolar , schizophrenia Subjective Information Pt seen sleeping at time of visit. COnsult received for BS 361 at admission. Per EMR, pt consumed 50% of breakfast this morning. Current Diet Order/ Nutrition Support 1999 ADA Pertinent Medications glucotrol, glucagen, novolog, levemir, theragran Pertinent Labs 02/13 Na 133, glucose 201, POC 212-331 02/12 na 130, Glucose 361, POC 462-471 Nutritional Hx/Data Height 1.63 m Height (Calculated Centimeters) 162.6 Current Weight (lbs) 68.039 kg Weight (Calculated Kilograms) 68.0 Weight (Calculated Grams) 77719.9 [place] Body Weight 120 Body Mass Index (BMI) 25.7 Weight Status Overweight GI Symptoms GI Symptoms None Last BM not indicated Difficult in: None Skin Integrity/Comment: pressure ulcer to leg Current %PO Fair (50-74%) Estimated Nutritional Goals BEE in Kcals: Using Current wt Calories/Kcals/Kg 25-30 Kcals Calculated 3032-7339 Protein: Using Current wt Protein g/k-1.1 Protein Calculated 68-75 Fluid: ml 1700-2040ml (1ml/kcal) Nutritional Problem 2. Problem Problem increased nutrition needs Etiology impaired skin integrity Signs/Symptoms: pressure ulcer 1. Problem Problem altered nutrition related labs Etiology hx of DM Signs/Symptoms: glucose 201-361, POC 212-471 Intervention/Recommendation Comments 1. Continue with 2000ADA diet as ordered. MD to adjust insulin for optimal glycemic control. 2. Monitor PO intake, wt, labs and skin integrity 3. F/U as high risk in 2-3 days, 02/15-02/16 Expected Outcomes/Goals Expected Outcomes/Goals 1. PO intake to meet at least 75% of nutritional needs. 2. Wt stability, skin to remain intact, labs to approach WNL.
[2018-02-15] MEDS ORDERED: Haloperidol Lactate 5 mg/mL 1mL Vial IM STA (14:13)
--- NOTE | 2018-02-17 18:51 | Discharge Summary ---
DATE OF DISCHARGE: 02/15/2018 HOSPITAL COURSE: The patient is well known to me from [place]. A 62-year-old came from [place] to [facility] because of history cellulitis on her legs, left leg cellulitis, left knee ulcer, left heel ulcer, history of hypertension, dementia, and history of psychosis. The patient was seen and treated. Dr. Crawford also saw the patient and the patient was in stable condition. On 02/13, the patient was sent to [facility] instead of sending her back to [place]. Whereby in [place], I will follow the patient. The patient's condition at the time of discharge was stable. MEDICATIONS: See the reconciliation. [facility]# [id number]
== END 2018-02-15 18:29 | DRG 602 ==
LOC: ER 16:12 → MSI 19:45
PROVIDERS: ADMIT Internal Medicine; ATTEND Internal Medicine
DX: L03.116 Cellulitis of left lower limb (principal); E11.00 Type 2 diabetes mellitus with hyperosmolarity without nonketotic hyperglycemic-hyperosmolar coma (NKHHC); L02.416 Cutaneous abscess of left lower limb; L89.892 Pressure ulcer of other site, stage 2; L89.622 Pressure ulcer of left heel, stage 2; F03.90 Unspecified dementia, unspecified severity, without behavioral disturbance, psychotic disturbance, mood disturbance, and anxiety; I10 Essential (primary) hypertension; E11.65 Type 2 diabetes mellitus with hyperglycemia; F32.9 Major depressive disorder, single episode, unspecified; L89.619 Pressure ulcer of right heel, unspecified stage; E78.5 Hyperlipidemia, unspecified; F39 Unspecified mood [affective] disorder; Z79.4 Long term (current) use of insulin; Z83.3 Family history of diabetes mellitus; Z74.01 Bed confinement status
CPT/HCPCS: 36415-UA; 80048-TC; 80053-TC; 81001-TC; 82948-90; 83036-90; 83605; 85025-TC; 87070-90; 93005; 93970-TC-50; J1200; J1630; J1815; J2543; J3370; Z7610

== ENCOUNTER 2018-07-07 15:53 | Inpatient (IN) | payer MEDICARE, OTHER ==
[2018-07-07 16:34] LABS: % BASOPHILS 0.8 % (0.0-2.0); % EOSINOPHILS 1.6 % (0.0-5.0); % LYMPHOCYTES 20.8 % (20.0-50.0); % MONOCYTES 7.3 % (2.0-10.0); % NEUTROPHILS 69.5 % (40.0-80.0); BASOPHILE ABSOLUTE 0.1 Th/cumm (0-0.2); EOSINOPHILE ABSOLUTE 0.1 Th/cmm (0.1-0.4); HEMATOCRIT 43.1 % (41.0-60); HEMOGLOBIN 14.6 gm/dL (12-16); LYMPHOCYTE ABSOLUTE 1.7 Th/cmm (1.5-3.0); MEAN CELL VOLUME 86.1 fl (81-100); MEAN CORPUSCULAR HEMOGLOBIN 29.2 pg (27.0-31.0); MEAN CORPUSCULAR HGB CONC 33.9 pg (28.0-36.0); MEAN PLATELET VOLUME 7.1 fl; MONOCYTE ABSOLUTE 0.6 Th/cmm (0.3-1.0); NEUTROPHILE ABSOLUTE 5.6 Th/cmm (1.8-8.0); PLATELET COUNT 250 Th/cmm (150-400); RED BLOOD COUNT 5.01 Mil/cmm (3.80-5.10); RED CELL DISTRIBUTION WIDTH 12.3 % (11.5-20.0); WHITE BLOOD COUNT 8.1 Th/cmm (4.8-10.8)
[2018-07-07 17:11] LABS: ALB/GLOB RATIO 1.4 (1.0-1.8); BILIRUBIN,TOTAL 0.6 mg/dL (0.3-1.0); CALCIUM SERUM 9.7 mg/dL (8.6-10.3); CARBON DIOXIDE 22.4 mEq/L (21.0-31.0); CREATININE - SERUM 1.3 mg/dL (0.6-1.2); GFR NON AFRICAN-AMERICAN 43.8 ml/min; MAGNESIUM 2.2 mg/dL (1.9-2.7); PHOSPHOROUS 4.1 mg/dL (2.5-5.0); POTASSIUM SERUM 4.4 mEq/L (3.5-5.1); TOTAL PROTEIN,SERUM 6.8 gm/dL (6.0-8.3)
[2018-07-07] MEDS ORDERED: Lactated Ringer 1,000 ML IV ONE (17:47)
--- NOTE | 2018-07-07 18:49 | ED Physician Chart ---
ED Chief Complaint/HPI - Patient Information Date Seen:: 07/07/18 Time Seen:: 15:57 Chief Complaint:: increased agitation History of Present Illness:: increased agitation Allergies:: Allergies Allergy/AdvReac Type Severity Reaction Status Date / Time No Known Allergies Allergy Verified 03/07/17 21:52 Vitals:: Vital Signs - 8 hr 07/07/18 07/07/18 15:57 16:56 Temp 98.9 F 98.9 F HR 48 96 RR 17 17 BP 104/71 104/71 O2 Sat % 98 Review:: Nurse's Note Reviewed, Transfer documents Reviewed ED Review of Systems - Review of Systems General/Constitutional: No fever, No chills, No weight loss, No weakness, No diaphoresis, No edema, No loss of appetite Skin: No skin lesions, No rash, No bruising Head: No headache, No light-headedness Eyes: No loss of vision, No pain, No diplopia ENT: No earache, No nasal drainage, No sore throat, No tinnitus Neck: No neck pain, No swelling, No thyromegaly, No stiffness, No mass noted Cardio Vascular: No chest pain, No palpitations, No PND, No orthopnea, No edema Pulmonary: No SOB, No cough, No sputum, No wheezing GI: No nausea, No vomiting, No diarrhea, No pain, No melena, No hematochezia, No constipation, No hematemesis G/U: No dysuria, No frequency, No hematuria Musculoskeletal: No bone or joint pain, No back pain, No muscle pain Endocrine: No polyuria, No polydipsia Psychiatric: Prior psych history, No depression, No anxiety, No suicidal ideation Hematopoietic: No bruising, No lymphadenopathy Allergic/Immuno: No urticaria, No angioedema Neurological: No syncope, No focal symptoms, No weakness, No paresthesia, No headache, No seizure, No dizziness, No confusion, No vertigo ED Past Medical History - Past Medical History Obtainable: No Past Medical History: DM (unsteadiness on feet; lack of coordination; peripheral vascular disease), Dyslipidemia, Other (pacemaker; cardiomyopathy) Psychiatricy History: Depression, Schizophrenia, Other (anxiety disorder) Family Medical History - Family Member Mother History Unknown: Yes Ethnicity: Non- Living Status: Still Living Hx Family Diabetes: Yes ED Physical Exam - Physical Examination General/Constitutional: Awake, Well-developed, well-nourished, Alert, No distress, Non-toxic appearing, Ambulatory Head: Atraumatic Eyes: Lids, conjuctiva normal, PERRL, EOMI Skin: Nl inspection, No rash, No skin lesions, No ecchymosis, Well hydrated, No lymphadenopathy ENMT: External ears, nose nl Neck: Nontender, No nuchal rigidity, No stridor Respiratory: Nl effort/Exclusion, Clear to Auscultation, No Wheeze/Rhonchi/Rales Cardio Vascular: No murmur, gallop, rubs, NL S1 S2 Other Cardio Vascular comments:: abnormal heart rhythm. left sided pacemaker present. GI: No tenderness/rebounding/guarding, No organomegaly, No hernia, Normal BS's, Nondistended, No mass/bruits, No Mc[place] tenderness : No CVA tenderness Extremities: No tenderness or effusion, Full ROM, normal strength in all extremities Neuro/Psych: Alert/oriented Other Neuro/Psych comments:: tries to get up and walk around. Misc: Normal back, No paraspinal tenderness ED Labs/Radiology/EKG Results - Lab Results Results: Laboratory Tests 07/07/18 07/07/18 07/07/18 16:28 16:28 16:28 WBC 8.1 RBC 5.01 Hgb 14.6 Hct 43.1 MCV 86.1 MCH 29.2 MCHC Differential 33.9 RDW 12.3 Plt Count 250 MPV 7.1 Neutrophils % 69.5 Lymphocytes % 20.8 Monocytes % 7.3 Eosinophils % 1.6 Basophils % 0.8 Sodium 135 L Potassium 4.4 Chloride 102 Carbon Dioxide 22.4 Anion Gap 15.0 BUN 29 H Creatinine 1.3 H Est GFR ( Amer) 53.0 Est GFR (Non-Af Amer) 43.8 BUN/Creatinine Ratio 22.3 Glucose 302 H Calcium 9.7 Phosphorus 4.1 Magnesium 2.2 Total Bilirubin 0.6 AST 29 ALT 39 Alkaline Phosphatase 113 H Troponin I < 0.01 L Total Protein 6.8 Albumin 4.0 Globulin 2.8 Albumin/Globulin Ratio 1.4 ED Assessment - Assessment General Assessment: EKG from today at 16:18:41 p.m.: paced rhythm, LVH, NSSTT wave changes, Q waves in III and AVF and V1 to V5. COMPARED WITH EKG FROM 02/12/2018 REVEALED NORMAL SINUS RHYTHM WITH LBBB. CXR: per my reading. Enlarged heart. Pacemaker in place. Rods in spine. ED Septic Shock - . Is Septic Shock (SBP<90, OR Lactate>4 mmol\L) present?: No - <6hrs of presentation: Vital Signs: Vital Signs - 8 hr 07/07/18 07/07/18 15:57 16:56 Temp 98.9 F 98.9 F HR 48 96 RR 17 17 BP 104/71 104/71 O2 Sat % 98 ED Reassessment (Disposition) - Reassessment Reassessment Condition:: Unchanged - Diagnosis Diagnosis:: Changed heart rhythm, possible second degree block--changed compared with EKG with LBBB from 02/12/2018 Pacemaker, age unknown (facility doesn't know as well)--problem 08/2017 - Patient Disposition Discharge/Transfer:: Acute Care w/in this hosp Admitted to:: ICU Condition at Disposition:: Stable, Unchanged
[2018-07-07] MEDS ORDERED: INSULIN HUMAN REGULAR 100 UNITS/ML UNIT IVP ONE (18:54)
[2018-07-07] MEDS ORDERED: INSULIN HUMAN REGULAR 100 UNITS/ML UNIT ONE (19:06)
[2018-07-07] MEDS ORDERED: INSULIN HUMAN REGULAR 100 UNITS/ML UNIT SUBQ ONE (21:14)
[2018-07-07 21:38] VITALS: BP 117/34
[2018-07-08] MEDS ORDERED: Non-Formulary Item 1 EA (Acetaminophen [Tylenol] 650 MG) PO PRN (03:17)
[2018-07-08] MEDS ORDERED: Magnesium Hydroxide (MOM) 30 mL UDC PO PRN (03:17)
[2018-07-08] MEDS ORDERED: INSULIN HUMAN REGULAR 100 UNITS/ML UNIT SUBQ ONE (03:58)
--- NOTE | 2018-07-08 04:05 | History & Physical ---
ADMIT DATE: 07/07/2018 CHIEF COMPLAINT: Increased agitation. HISTORY OF PRESENT ILLNESS: The patient is a 62-year-old female with past medical history of diabetes mellitus type 2, hypertension, dementia and schizophrenia, was brought in from nursing facility for agitation. Initially, she was supposed to go to Geropsych Unit, but EKG showed some AV block as per the ER physician. Instead of patient going to the Geropsych Unit the patient was admitted to ICU for monitoring. The patient has already pacemaker in place. On initial evaluation, the patient was afebrile and vital signs stable. The patient denies any chest pain, or palpitation. Lab showed no significant abnormality. Creatinine was a little higher side. PAST MEDICAL HISTORY: Includes diabetes mellitus type 2, hypertension, dementia, pacemaker placement, cardiomyopathy. MEDICATIONS: As per medication reconciliation sheet. ALLERGIES: NKDA. SOCIAL HISTORY: The patient lives in a nursing facility. No history of smoking, alcohol or drug use. REVIEW OF SYSTEMS: The patient says she does not know why she is here. She is confused. Otherwise, with a limited data. GENERAL: The patient has no fever, no chills. HEENT: No diplopia, no photophobia, no sore throat. RESPIRATORY: No cough, no shortness of breath. CARDIOVASCULAR: No chest pain or palpitation. GASTROINTESTINAL: No nausea, no vomiting, no diarrhea, no constipation. GENITOURINARY: No dysuria. NEUROLOGIC: No headache, no dizziness, no focal weakness. As per the record, the patient has agitation in nursing facility. PHYSICAL EXAMINATION: VITAL SIGNS: Shows temperature is 98.2 degrees, pulse 78, respirations 13, blood pressure 124/71. GENERAL: The patient is comfortable lying in the bed, not in acute distress. HEENT: Head is normocephalic, atraumatic. Oral cavity moist, pink tongue. Eyes: No pallor, no icterus. Pupils PERRLA, EOMI. NECK: Supple, no JVD, no bruit. Trachea in midline. CHEST: Bilateral breath sounds. No crackles or wheezing. HEART: S1, S2 within normal limits. Regular rhythm. No murmur, no gallop. ABDOMEN: Soft, nontender, nondistended. Bowel sounds present. EXTREMITIES: No cyanosis, no clubbing, no edema. NEUROLOGICAL: Alert and awake, oriented x 1 ____. LABORATORY DATA: Current lab shows WBC count is 8100, hemoglobin 14.6, hematocrit 43.1, platelets are 250,000, neutrophils 69.5%. Sodium 135, potassium 4.4, chloride 102, bicarbonate is 22, BUN is 29, creatinine 1.3, glucose is 502. IMPRESSION: Current EKG shows a paced rhythm and sinus rhythm. The initial EKG on admission was showing ventricular paced rhythm. IMPRESSION: 1. Arrhythmia. 2. Pacemaker in place. 3. Agitation. 4. Schizophrenia. 5. Diabetes mellitus type 2, uncontrolled. 6. Hypertension. 7. Dementia. 8. Azotemia, EVE. PLAN: We will continue home medication. Get Cardiology consultation in the morning. If it is cleared by Cardiology we will transfer the patient to Geropsych Unit. JOB# [id number] [email or web address]
[2018-07-08] MEDS ORDERED: Sodium Chloride 0.9% 1,000 ML IV SCH (04:15)
[2018-07-08] MEDS: INSULIN ASPART SLIDING SCALE 100 UNITS/ML UNIT SUBQ SCH ×3 (08:27→17:23)
[2018-07-08] MEDS: Insulin Detemir 100 units/mL 10mL Vial SUBQ SCH ×2 (08:27→17:23)
--- NOTE | 2018-07-08 08:41 | Diagnostic Imaging Report ---
CHEST X-RAY: AP view INDICATION: pain COMPARISON: 09/11/2017 FINDINGS: Left chest wall pacer is noted with leads in the region right atrium and right ventricle. No focal consolidation or effusions. Postsurgical changes of the thoracic spine are again noted. IMPRESSION: No focal consolidation identified Postsurgical changes.
[2018-07-08] MEDS ORDERED: Fish Oil 1,000 MG SGL PO SCH (09:00)
[2018-07-08] MEDS ORDERED: Multivitamin w/ Minerals Tab PO SCH (09:00)
[2018-07-08] MEDS ORDERED: Insulin Detemir 100 units/mL 10mL Vial SUBQ SCH (09:00)
[2018-07-08] MEDS ORDERED: Haloperidol Lactate 5 mg/mL 1mL Vial IVP ONE (11:05)
--- NOTE | 2018-07-08 15:13 | Infectious Disease Prog Note ---
Infectious Disease Subjective - Review of Systems Service Date: 07/08/18 Subjective: Patient was agitated and ativan was given two time, she was not controlled. Psych consult on the case,. Infectious Disease Objective - Results Result Diagrams: 07/07/18 16:28 07/07/18 16:28 Recent Labs: Laboratory Last Values WBC 8.1 Th/cmm (4.8-10.8) 07/07/18 16:28 RBC 5.01 Mil/cmm (3.80-5.10) 07/07/18 16:28 Hgb 14.6 gm/dL (-16) 07/07/18 16:28 Hct 43.1 % (41.0-60) 07/07/18 16:28 MCV 86.1 fl (81-100) 07/07/18 16:28 MCH 29.2 pg (27.0-31.0) 07/07/18 16:28 MCHC Differential 33.9 pg (28.0-36.0) 07/07/18 16:28 RDW 12.3 % (11.5-20.0) 07/07/18 16:28 Plt Count 250 Th/cmm (150-400) 07/07/18 16:28 MPV 7.1 fl 07/07/18 16:28 Neutrophils % 69.5 % (40.0-80.0) 07/07/18 16:28 Lymphocytes % 20.8 % (20.0-50.0) 07/07/18 16:28 Monocytes % 7.3 % (2.0-10.0) 07/07/18 16:28 Eosinophils % 1.6 % (0.0-5.0) 07/07/18 16:28 Basophils % 0.8 % (0.0-2.0) 07/07/18 16:28 Sodium 135 mEq/L (136-145) L 07/07/18 16:28 Potassium 4.4 mEq/L (3.5-5.1) 07/07/18 16:28 Chloride 102 mEq/L (98-107) 07/07/18 16:28 Carbon Dioxide 22.4 mEq/L (21.0-31.0) 07/07/18 16:28 Anion Gap 15.0 (7.0-16.0) 07/07/18 16:28 BUN 29 mg/dL (7-25) H 07/07/18 16:28 Creatinine 1.3 mg/dL (0.6-1.2) H 07/07/18 16:28 Est GFR ( Amer) 53.0 ml/min (>90) 07/07/18 16:28 Est GFR (Non-Af Amer) 43.8 ml/min 07/07/18 16:28 BUN/Creatinine Ratio 22.3 07/07/18 16:28 Glucose 302 mg/dL (70-105) H 07/07/18 16:28 POC Glucose 314 MG/DL (70 - 105) H 07/08/18 11:51 Calcium 9.7 mg/dL (8.6-10.3) 07/07/18 16:28 Phosphorus 4.1 mg/dL (2.5-5.0) 07/07/18 16:28 Magnesium 2.2 mg/dL (1.9-2.7) 07/07/18 16:28 Total Bilirubin 0.6 mg/dL (0.3-1.0) 07/07/18 16:28 AST 29 U/L (13-39) 07/07/18 16:28 ALT 39 U/L (7-52) 07/07/18 16:28 Alkaline Phosphatase 113 U/L (34-104) H 07/07/18 16:28 Troponin I < 0.01 ng/mL (0.01-0.05) L 07/07/18 16:28 Total Protein 6.8 gm/dL (6.0-8.3) 07/07/18 16:28 Albumin 4.0 gm/dL (3.7-5.3) 07/07/18 16:28 Globulin 2.8 gm/dL 07/07/18 16:28 Albumin/Globulin Ratio 1.4 (1.0-1.8) 07/07/18 16:28 - Physical Exam Vitals and I&O: Vital Signs Temp 97.3 F 07/08/18 12:00 Pulse 66 07/08/18 13:36 Resp 16 07/08/18 12:00 BP 155/74 07/08/18 13:36 Pulse Ox 100 07/08/18 12:00 Intake & Output 07/07/18 07/08/18 07/08/18 18:59 06:59 18:59 Intake Total 775.000 Balance 775.000 Weight (lbs) 54.431 kg 50.031 kg Intake: Intake, IV Amount 415.000 Lactated Ringer 1,000 ml 321.667 @ 50 mls/hr IV .Q20H [facility] Rx#:[id number] Sodium Chloride 0.9% 1, 93.333 000 ml @ 50 mls/hr IV . Q20H [facility] Rx#:[id number] Oral 360 Other: # Voids 6 # Bowel Movements 0 Weight Source Estimated Bedscale Active Medications: Current Medications Acetaminophen (Tylenol) 650 mg PO Q4HR PRN PRN Reason: Pain (Mild) Stop: 09/06/18 07:37 Docusate Sodium (Colace) 100 mg PO BID [facility] Stop: 09/06/18 08:59 Last Admin: 07/08/18 08:26 Dose: 100 mg Fish Oil ([place] 3) 1,000 mg PO DAILY [facility] Stop: 09/06/18 08:59 Last Admin: 07/08/18 08:37 Dose: 1,000 mg Glipizide (Glucotrol) 5 mg PO DAILY [facility] Stop: 09/06/18 08:59 Last Admin: 07/08/18 08:26 Dose: 5 mg Hydralazine HCl (Apresoline) 75 mg PO TID [facility] Stop: 09/06/18 08:59 Last Admin: 07/08/18 13:36 Dose: 75 mg Sodium Chloride (Nacl 0.9%) 1,000 mls @ 50 mls/hr IV .Q20H [facility] Stop: 09/06/18 04:14 Last Infusion: 07/08/18 06:09 Dose: 50 mls/hr Insulin Aspart (Novolog Insulin Sliding Scale) 0 units SUBQ ACHS [facility]; Protocol Stop: 09/06/18 07:29 Last Admin: 07/08/18 12:25 Dose: 8 units Insulin Detemir (Levemir Insulin) 15 units SUBQ BID [facility] Stop: 09/06/18 08:59 Last Admin: 07/08/18 08:27 Dose: 15 units Lorazepam (Ativan) 1 mg IVP Q4HR PRN; Protocol PRN Reason: Agitation Stop: 09/05/18 21:11 Last Admin: 07/08/18 13:35 Dose: 1 mg Magnesium Hydroxide (Milk Of Magnesia) 30 ml PO DAILY PRN PRN Reason: Constipation Stop: 09/06/18 03:16 Memantine (Namenda) 5 mg PO DAILY [facility] Stop: 09/06/18 08:59 Last Admin: 07/08/18 08:26 Dose: 5 mg Metoprolol Tartrate (Lopressor) 25 mg PO DAILY [facility] Stop: 09/06/18 08:59 Last Admin: 07/08/18 08:26 Dose: 25 mg Psyllium Hydrophilic Mucilloid (Metamucil) 1 pkt PO BID [facility] Stop: 09/06/18 08:59 Last Admin: 07/08/18 08:37 Dose: 1 pkt Simvastatin (Zocor) 40 mg PO HS [facility]; Protocol Stop: 09/06/18 20:59 General: no acute distress, well developed, well nourished HEENT: atraumatic, normocephalic, PERRLA, EOMI Neck: supple, no thyromegaly Cardiovascular: S1S2, regular Lungs: clear to auscultation bilaterally, clear to percussion Abdomen: soft, distended, no tender, no mass Extremities: no cyanosis, no clubbing, no edema Neurological: awake, alert, oriented Skin: intact Infectious Disease Assmt/Plan - Problem List Patient Problems: All Active Problems COMBATIVE AND AGGRESSIVE BEHAVIOR (Acute) - Assessment Assessment: 1. Arrhythmia. 2. Pacemaker in place. 3. Agitation. 4. Schizophrenia. 5. Diabetes mellitus type 2, uncontrolled. 6. Hypertension. 7. Dementia. 8. Azotemia, EVE. - Plan Plan: Will check the labs now, and take further decision accordingly. Nutritional Asmnt/Malnutr-PDOC - Dietary Evaluation Malnutrition Findings (Please click <Entered> for more info): Nutritional Asmnt/Malnutrition Start: 07/08/18 10: 15 Text: Status: Complete Freq: Protocol: Document 07/08/18 10:16 ZACH (Rec: 07/08/18 10:21 ZACH ROBERT- [email or web address]) Nutritional Asmnt/Malnutrition Patient General Information Diagnosis heart block Pertinent Medical Hx/Surgical Hx pacemaker, cardiomyopathy, DM II, HTN, dementia Subjective Information Pt confused lying in bed at time of visit, stated she was at [employer] waiting for a ride at time of visit. Current Diet Order/ Nutrition Support [facility] Pertinent Medications colace, omega 3, s/s insulin, levemir 15units BID, MOM, LR @ 50ml/hr, NS @50ml/hr Pertinent Labs 07/07: Na 135, K 4.4, CL 102, CO2 22.4, BUN 29, Cr 1.3, Ca 9 .7, glucose 302 Nutritional Hx/Data Height 1.63 m Height (Calculated Centimeters) 162.6 Current Weight (lbs) 49.895 kg Weight (Calculated Kilograms) 49.9 Weight (Calculated Grams) 12418.2 Body Mass Index (BMI) 18.8 Weight Status Approriate GI Symptoms GI Symptoms None Last BM 07/08 Cultural/Ethnic/Sabianism Belief unknown Usual diet at home [facility] Skin Integrity/Comment: daniel score 21 Estimated Nutritional Goals BEE in Kcals: Using Current wt Calories/Kcals/Kg 30-35kcals/kg Kcals Calculated 1500-1750kcals/day Protein: Using Current wt Protein g/k.1-1.3g/kg Protein Calculated 55-65g/day Fluid: ml per MD Nutritional Problem 1. Problem Problem Altered nutrition related lab values related to Etiology endocrine dysfunction as evidenced by Signs/Symptoms: glucose 302. Intervention/Recommendation Comments Recommend continuing [facility] diet Expected Outcomes/Goals Expected Outcomes/Goals PO intake >75% of meals
[2018-07-08 15:28] LABS: % BASOPHILS 0.9 % (0.0-2.0); % EOSINOPHILS 1.1 % (0.0-5.0); % LYMPHOCYTES 14.2 % (20.0-50.0); % MONOCYTES 8.7 % (2.0-10.0); % NEUTROPHILS 75.1 % (40.0-80.0); BASOPHILE ABSOLUTE 0.1 Th/cumm (0-0.2); EOSINOPHILE ABSOLUTE 0.1 Th/cmm (0.1-0.4); HEMATOCRIT 41.3 % (41.0-60); HEMOGLOBIN 13.7 gm/dL (12-16); LYMPHOCYTE ABSOLUTE 1.2 Th/cmm (1.5-3.0); MEAN CELL VOLUME 87.7 fl (81-100); MEAN CORPUSCULAR HGB CONC 33.1 pg (28.0-36.0); MEAN PLATELET VOLUME 6.8 fl; MONOCYTE ABSOLUTE 0.8 Th/cmm (0.3-1.0); NEUTROPHILE ABSOLUTE 6.6 Th/cmm (1.8-8.0); PLATELET COUNT 219 Th/cmm (150-400); RED BLOOD COUNT 4.71 Mil/cmm (3.80-5.10); RED CELL DISTRIBUTION WIDTH 11.8 % (11.5-20.0); WHITE BLOOD COUNT 8.8 Th/cmm (4.8-10.8)
[2018-07-08 15:56] LABS: ALB/GLOB RATIO 1.5 (1.0-1.8); ALBUMIN 3.8 gm/dL (3.7-5.3); ALKALINE PHOSPHATASE 102 U/L (34-104); ANION GAP 11.3 (7.0-16.0); BILIRUBIN,TOTAL 0.5 mg/dL (0.3-1.0); BUN - UREA NITROGEN 24 mg/dL (7-25); CALCIUM SERUM 9.4 mg/dL (8.6-10.3); CARBON DIOXIDE 25.3 mEq/L (21.0-31.0); CHLORIDE 101 mEq/L (98-107); CREATININE - SERUM 0.9 mg/dL (0.6-1.2); GFR AFRICAN-AMERICAN > 60.0 ml/min (>90); GFR NON AFRICAN-AMERICAN > 60.0 ml/min; GLUCOSE 270 mg/dL (70-105); POTASSIUM SERUM 3.6 mEq/L (3.5-5.1); SGOT 21 U/L (13-39); SGPT/ALT 37 U/L (7-52); SODIUM SERUM 134 mEq/L (136-145); TOTAL PROTEIN,SERUM 6.4 gm/dL (6.0-8.3)
--- NOTE | 2018-07-08 16:50 | Discharge Summary ---
DATE OF DISCHARGE: 07/08/2018 CHIEF COMPLAINT: Increased agitation. HISTORY OF PRESENT ILLNESS AND HOSPITAL COURSE: The patient is a 62-year-old female with a past medical history of diabetes mellitus type 2, hypertension, dementia, and schizophrenia, was brought from the nursing facility for increased agitation. Initially, she was supposed to go to [facility], but EKG showed some AV block as per the ER physician. So instead of placing the patient on Geropsych, the patient was admitted to the ICU for monitoring. On the initial evaluation, the patient's vitals were stable. Labs are normal except creatinine was little higher side 1.3. The patient was started on IV fluid. Consultants called Dr. Darren Humphries; Dr. Hurtado. Today, lab work was performed and the labs came normal. The patient was agitated and was sedated by Dr. Hurtado. The patient is otherwise medically stable. The patient can be transferred to Geropsych Unit if okay by psych data migration consultant. The patient is already cleared by Dr. Darren Humphries as there was no significant arrhythmia and the patient's pacemaker was working well. DISCHARGE DIAGNOSIS: 1. Arrhythmia. 2. Pacemaker in place. 3. Agitation. 4. Schizophrenia. 5. Diabetes mellitus type 2, uncontrolled. 6. Hypertension. 7. Dementia. 8. Azotemia, EVE. DISCHARGE CONDITION: Stable. DISCHARGE DISPOSITION: Geropsych Unit. JOB# [id number] MTDD
--- NOTE | 2018-07-09 10:06 | Diagnostic Imaging Report ---
Renal ultrasound HISTORY: Renal failure. COMPARISON: None Technique: Sonography of the kidneys and urinary bladder was performed in multiple planes. FINDINGS: The right kidney measures 11.0 x 4.3 cm. The Left kidney measures 11.6 x 5.3 cm. No evidence of focal lesions or hydronephrosis. The urinary bladder is grossly unremarkable. Post void residual bladder volumes were not able to be obtained as patient was uncooperative. IMPRESSION: No evidence of hydronephrosis.
== END 2018-07-08 18:07 | DRG 308 ==
LOC: ER 15:53 → ICU 19:25
PROVIDERS: ADMIT Internal Medicine Infectious Disease; ATTEND Internal Medicine Infectious Disease
DX: I44.30 Unspecified atrioventricular block (principal); N17.0 Acute kidney failure with tubular necrosis; N17.9 Acute kidney failure, unspecified; I42.9 Cardiomyopathy, unspecified; E11.65 Type 2 diabetes mellitus with hyperglycemia; E11.51 Type 2 diabetes mellitus with diabetic peripheral angiopathy without gangrene; E78.5 Hyperlipidemia, unspecified; I10 Essential (primary) hypertension; F03.90 Unspecified dementia, unspecified severity, without behavioral disturbance, psychotic disturbance, mood disturbance, and anxiety; F20.9 Schizophrenia, unspecified; Z95.0 Presence of cardiac pacemaker
CPT/HCPCS: 36415-UA; 71045-TC; 76770-TC; 80053-TC; 82948-90; 83036-90; 83735-TC; 84100-TC; 84484-TC; 85025-TC; 87086-90; 93005; 96374; 96375; J1200; J1630; J1815; J2060; J3480; J7030

== ENCOUNTER 2018-07-08 18:55 | Inpatient (IN) | payer MEDICARE, OTHER ==
[2018-07-08 20:52] VITALS: BP 110/67
[2018-07-08] MEDS ORDERED: Magnesium Hydroxide (MOM) 30 mL UDC PO PRN (20:52)
[2018-07-08] MEDS ORDERED: Maalox 30 mL Cup PO PRN (20:52)
[2018-07-08 21:35] LABS: CHOLESTEROL 151 mg/dL (<200); HDL -HIGH DENSITY LIPOPROTEIN 58 mg/dL (23-92); TRIGLYCERIDES 105 mg/dL (<150)
[2018-07-08] MEDS: INSULIN ASPART SLIDING SCALE 100 UNITS/ML UNIT SUBQ SCH (21:57)
[2018-07-09] MEDS: INSULIN ASPART SLIDING SCALE 100 UNITS/ML UNIT SUBQ SCH ×4 (06:48→20:44)
[2018-07-09] MEDS: Insulin Detemir 100 units/mL 10mL Vial SUBQ SCH ×2 (09:50→16:37)
[2018-07-09] MEDS: Fish Oil 1,000 MG SGL PO SCH (09:56)
[2018-07-09] MEDS: Multivitamin Tab PO SCH (09:57)
--- NOTE | 2018-07-09 14:48 | Consultation ---
DATE OF CONSULTATION: 07/08/2018 PATIENT OF: Dr. Eliseo Humphries. HISTORY AND PHYSICAL: This 62-year-old female patient who was brought to the Emergency Room due to aggressive behavior and agitation too. While in the Emergency Room, the patient was found to have abnormal EKG. Following this, the patient was admitted to ICU and cardiac consult is requested. PAST MEDICAL HISTORY: Sick sinus syndrome with pacemaker, diabetes mellitus type 2, hypertension, dementia, and cardiomyopathy. FAMILY HISTORY: Unremarkable. SOCIAL HISTORY: No history of smoking, alcohol abuse. ALLERGIES: None. PHYSICAL EXAMINATION: VITAL SIGNS: Blood pressure 124/70, pulse 70, respirations 20. HEENT: Head: Normocephalic. No lumps or bumps. Eyes: Pupils equal, reactive to light. Fundi show AV nicking, sclerae white, conjunctivae pink. NECK: Carotid 2+. Normal upstroke. JVD flat. Thyroid not palpable. Lymph nodes not palpable. CHEST: Shows increased AP diameter. No kyphosis, scoliosis. LUNGS: Bilateral bronchovesicular breath sounds. HEART: PMI fifth intercostal space with lateral to midclavicular line. S1, S2. No S3, S4. Soft systolic murmur. ABDOMEN: Soft. Liver, spleen not palpable. No organomegaly. Bowel sounds active. NEUROLOGIC: No focal neurological deficit. EXTREMITIES: Peripheral pulses 2+. No pedal edema. CLINICAL IMPRESSION: 1. Sick sinus syndrome with pacemaker. 2. Diabetes mellitus type 2. 3. Diabetic peripheral vascular disease. 4. Hypertension. 5. Hyperlipidemia. 6. Insulin-dependent diabetes mellitus. 7. Dementia. 8. Paranoid schizophrenia. 9. Anxiety disorder. 10. Major depression. 11. Atherosclerotic arteries of the legs. PLAN: Admit the patient. The patient was admitted to telemetry bed. The patient's EKG is with a pacemaker. The patient's clinical condition is stable. The patient is stable for transfer to [facility]. JOB# [id number]
--- NOTE | 2018-07-09 22:29 | Psychiatric Evaluation ---
DATE OF SERVICE: 07/09/2018 HISTORY OF PRESENT ILLNESS: A 62-year-old female with history of diabetes, hypertension, dementia, schizophrenia, brought in from nursing facility for agitation. The patient had multiple medical problems, diabetes, heart block, cleared from the ICU now, currently in the Geropsych Unit. On [id number], the patient refusing to speak with me. She was pretty agitated yesterday and unruly requiring emergency order of medications, Haldol, a cocktail. Staff noting she is resistive to care, irritable, does not want to be touched, refusing assessment. Still with unruly behaviors. Medications were noted. PAST PSYCHIATRIC HISTORY: As noted including dementia. She has been to the psychiatric unit in the past. SOCIAL HISTORY: Coming from correction. Require a higher level of care. Unclear family support at this time. MENTAL STATUS EXAMINATION: Stated age, no eye contact. Sleeping, but arousable, not talking to me whatsoever. Unclear mood. Affect flat. Unclear thought processes. Unclear SI or HI. Insight poor. Judgment poor. Impulse control is poor. PROVISIONAL DIAGNOSES: Schizophrenia per documentation, also dementia per history, anxiety, unspecified, mood, unspecified. MEDICAL: Please see full H and P. ESTIMATED LENGTH OF STAY: 5-7 days. ASSESSMENT: The patient requiring hospitalization, agitated, combative. It seems she has a history of schizophrenia. PLAN: We will increase collateral, titrate and adjust medications. We will continue to monitor on an inpatient basis. CONDITIONS FOR DISCHARGE: Improved mood, improved affect, better control of any agitation. JOB# [id number]
--- NOTE | 2018-07-10 02:41 | History & Physical ---
ADMIT DATE: 07/08/2018 CHIEF COMPLAINT: Agitation. HISTORY OF PRESENT ILLNESS: The patient is a 62-year-old female with a past medical history of diabetes mellitus type 2, hypertension, dementia, schizophrenia, brought from nursing facility for increased agitation. Initially, she was supposed to go to [facility], but EKG showed some AV block as per the ER physician. So, the patient was admitted to the ICU for monitoring. On initial evaluation, the patient's vitals are stable. Labs were normal with some creatinine a little high side of 1.3. The patient was started on IV fluid. The creatinine came to normal. The patient's rhythm was normal with ventricular and atrial spikes on EKG. The patient was cleared by Dr. Darren Humphries; netsuite consultant and ultimately the patient was transferred to [facility] unit. The patient was accepted by Dr. Hurtado, psych consultation. The patient is confused at times and there is an irrelevant toxicity. PAST MEDICAL HISTORY: Includes diabetes mellitus type 2, hypertension, dementia, pacemaker placement, cardiomyopathy. MEDICATIONS: As per medication reconciliation sheet. ALLERGIES: NKDA. SOCIAL HISTORY: The patient lives at nursing facility. No history of smoking, alcohol or drug use. REVIEW OF SYSTEMS: The patient is confused, unable to give any appropriate history. PHYSICAL EXAMINATION: GENERAL: The patient has no fever, no chills, no generalized weakness. HEENT: No diplopia, no photophobia, no sore throat. RESPIRATORY: No cough, no shortness of breath. CARDIOVASCULAR: No chest pain or palpitation. GASTROINTESTINAL: No nausea, no vomiting, no diarrhea, no constipation, no abdominal pain. GENITOURINARY: No dysuria. NEUROLOGIC: No headache, no dizziness, no focal weakness. PSYCHIATRIC: The patient has agitation in nursing facility. The patient is very confused. PHYSICAL EXAMINATION: CURRENT VITAL SIGNS: Shows temperature is 97.4 degrees Fahrenheit, pulse 75, respirations 18, blood pressure 109/62. GENERAL: The patient is comfortable, lying in the bed, not in acute distress. HEENT: Head is normocephalic, atraumatic. Oral cavity moist, pink tongue. NECK: Supple, no JVD, no carotid bruit. Trachea midline. CHEST: Bilateral breath sounds. No crackles or wheezing. HEART: S1, S2 within normal limits. Regular rhythm. No murmur, no gallop. ABDOMEN: Soft, nontender, nondistended. Bowel sounds present. EXTREMITIES: No cyanosis, no clubbing, no edema. NEUROLOGICAL: Alert, awake, oriented x 3. No focal deficit. LABORATORY DATA: Current lab shows WBC 8800, hemoglobin 13.7, hematocrit 41.3, platelets are 290,000. Sodium 134, potassium 3.6, chloride 101, bicarb is 25, BUN is 24, creatinine 0.9, glucose is 270. IMPRESSION: 1. Agitation, psychosis, confusion. 2. Arrhythmia. 3. Pacemaker. 4. Schizophrenia. 5. Diabetes mellitus type 2, uncontrolled. 6. Hypertension. 7. Dementia. 8. Azotemia, improved. RECOMMENDATIONS: Continue same treatment. We will check some labs in the morning. JOB# [id number]
[2018-07-10] MEDS ORDERED: Magnesium Hydroxide (MOM) 30 mL UDC PO PRN (03:06)
[2018-07-10] MEDS ORDERED: Non-Formulary Item 1 EA (Acetaminophen [Tylenol] 650 MG) PO PRN (03:06)
[2018-07-10] MEDS: INSULIN ASPART SLIDING SCALE 100 UNITS/ML UNIT SUBQ SCH ×4 (06:44→20:31)
[2018-07-10] MEDS ORDERED: INSULIN ASPART SLIDING SCALE 100 UNITS/ML UNIT SUBQ SCH (07:30)
[2018-07-10 07:39] LABS: % BASOPHILS 1.2 % (0.0-2.0); % LYMPHOCYTES 25.4 % (20.0-50.0); % MONOCYTES 7.2 % (2.0-10.0); % NEUTROPHILS 64.2 % (40.0-80.0); BASOPHILE ABSOLUTE 0.1 Th/cumm (0-0.2); EOSINOPHILE ABSOLUTE 0.1 Th/cmm (0.1-0.4); HEMATOCRIT 42.3 % (41.0-60); HEMOGLOBIN 14.7 gm/dL (12-16); LYMPHOCYTE ABSOLUTE 1.5 Th/cmm (1.5-3.0); MEAN CELL VOLUME 86.5 fl (81-100); MEAN CORPUSCULAR HEMOGLOBIN 30.1 pg (27.0-31.0); MEAN CORPUSCULAR HGB CONC 34.7 pg (28.0-36.0); MEAN PLATELET VOLUME 7.6 fl; MONOCYTE ABSOLUTE 0.4 Th/cmm (0.3-1.0); NEUTROPHILE ABSOLUTE 3.7 Th/cmm (1.8-8.0); PLATELET COUNT 203 Th/cmm (150-400); RED BLOOD COUNT 4.88 Mil/cmm (3.80-5.10); RED CELL DISTRIBUTION WIDTH 12.2 % (11.5-20.0); WHITE BLOOD COUNT 5.8 Th/cmm (4.8-10.8)
[2018-07-10 07:45] LABS: ALB/GLOB RATIO 1.5 (1.0-1.8); ALBUMIN 4.1 gm/dL (3.7-5.3); ALKALINE PHOSPHATASE 107 U/L (34-104); ANION GAP 12.8 (7.0-16.0); BILIRUBIN,TOTAL 0.9 mg/dL (0.3-1.0); BUN - UREA NITROGEN 22 mg/dL (7-25); CALCIUM SERUM 9.8 mg/dL (8.6-10.3); CARBON DIOXIDE 27.4 mEq/L (21.0-31.0); CHLORIDE 100 mEq/L (98-107); CREATININE - SERUM 0.9 mg/dL (0.6-1.2); GFR AFRICAN-AMERICAN > 60.0 ml/min (>90); GFR NON AFRICAN-AMERICAN > 60.0 ml/min; GLUCOSE 266 mg/dL (70-105); POTASSIUM SERUM 4.2 mEq/L (3.5-5.1); SGOT 31 U/L (13-39); SGPT/ALT 39 U/L (7-52); SODIUM SERUM 136 mEq/L (136-145); TOTAL PROTEIN,SERUM 6.8 gm/dL (6.0-8.3)
[2018-07-10] MEDS: Fish Oil 1,000 MG SGL PO SCH (08:34)
[2018-07-10] MEDS: Multivitamin Tab PO SCH (08:36)
[2018-07-10] MEDS: Insulin Detemir 100 units/mL 10mL Vial SUBQ SCH ×2 (08:38→17:38)
[2018-07-10] MEDS ORDERED: Insulin Detemir 100 units/mL 10mL Vial SUBQ SCH ×2 (09:00)
[2018-07-10] MEDS ORDERED: Fish Oil 1,000 MG SGL PO SCH ×2 (09:00)
[2018-07-10] MEDS ORDERED: Multivitamin w/ Minerals Tab PO SCH (09:00)
--- NOTE | 2018-07-10 18:45 | Progress Notes ---
DATE: 07/10/2018 SUBJECTIVE: The patient is currently in the hospital, coming from a senior care facility. The patient is a very poor historian, refusing to speak with me. Apparently had been agitated, now selectively mute, keeps her eyes closed, but awake. When I asked her why she is here, she states "to watch TV." Not interactive, mostly keeps to herself, seems depressed, melancholic, very withdrawn, poor motivation. Medications were noted. ASSESSMENT: The patient disengaged, a difficult historian, concerns about impulsivity, will require ongoing monitoring. Dr. Hurtado did inform me that this is a patient of hers from the senior care facility. So we will ask nursing staff to transfer care to Dr. Hurtado. JOB# [id number]
[2018-07-11] MEDS: INSULIN ASPART SLIDING SCALE 100 UNITS/ML UNIT SUBQ SCH ×4 (06:59→20:39)
[2018-07-11] MEDS: Fish Oil 1,000 MG SGL PO SCH (09:12)
[2018-07-11] MEDS: Insulin Detemir 100 units/mL 10mL Vial SUBQ SCH ×2 (09:14→16:48)
--- NOTE | 2018-07-11 09:48 | Progress Notes ---
DATE: 07/10/2018 SUBJECTIVE: The patient lying in the bed, not in acute distress, comfortable, not interactive that much. The patient's blood glucose was on higher side, is more than 400, on Accu-Chek reading. It was noted that 9 o'clock dosing of scheduled insulin was not given. Address the issue with the RN. OBJECTIVE: VITAL SIGNS: Temperature 98.6, pulse 75, respiration is 20, blood pressure 96/54, acute Accu-Chek glucose ____ done today, 2 times only 266 and 529. GENERAL: The patient is comfortable, lying in the bed. HEAD, EYES, EARS, NOSE, AND THROAT: Head is normocephalic, atraumatic. Oral cavity moist, pink tongue. NECK: Supple, no JVD, no bruit. Trachea midline. CHEST: Bilateral breath sounds. No crackles or wheezing. HEART: S1, S2 within normal limits. Regular rhythm. No murmur. ABDOMEN: Soft, nontender, nondistended. Bowel sounds present. EXTREMITIES: No cyanosis, no clubbing, no edema. NEUROLOGIC: Alert and awake. LABORATORY DATA: WBC count 5800, hemoglobin 14.7, hematocrit 42.3, platelets are 203,000, neutrophil is 64.2%. Sodium 136, potassium 4.2, chloride 100, bicarbonate is 27, BUN is 22, creatinine 0.9, glucose is 239. Chemistry: Glucose is 400 plus, last 3 readings are 445, 417 and 529. ASSESSMENT: 1. Agitation. 2. Psychosis, confusion, stable, 3. Pacemaker.arrhythmia. 4. Diabetes mellitus, uncontrolled secondary to missed dosing. 5. Schizophrenia. 6. Hypertension. 7. Dementia. 8. Azotemia, improved. RECOMMENDATIONS: We will continue same treatment. Increased scheduled insulin, Levemir insulin 25 units subQ twice a day. Discussed with RN to give scheduled insulin. Continue other care as per psych consultation. JOB# [id number] MTDD
[2018-07-11] MEDS: Multivitamin Tab PO SCH (09:57)
--- NOTE | 2018-07-11 23:13 | Progress Notes ---
DATE: 07/11/2018 SUBJECTIVE: Case was discussed with staff of the patient, reviewed records. The patient continues to be confused, unable to participate in meaningful conversation or make self plan for self-care. I found her sleeping in somebody else's room. She is unable to tell me the date, where she is, why she is here. She is unpredictable, impulsive, needing redirection. The patient apparently was admitted, transferred from [place]. She was in ICU, then transferred to this unit. She is demented, confused, and unable to make safe plan for self-care. The patient also with a history of schizophrenia. I have been seeing this patient for a few months now at [place] before that she has multiple admissions to this facility with history of at times refusing her medications. We will continue to work with the patient in group therapy, milieu therapy, and adjust the medications as needed. JOB# [id number]
--- NOTE | 2018-07-12 04:15 | Progress Notes ---
DATE: 07/11/2018 INFECTIOUS DISEASE PROGRESS NOTE SUBJECTIVE: The patient is lying in the bed, not in acute distress. The patient's blood sugars were better controlled, alert and awake. OBJECTIVE: CURRENT VITAL SIGNS: Shows temperature is 97.6, pulse 60, respirations 18, blood pressure 101/53. GENERAL: The patient is comfortable, lying in the bed, not in no acute distress. HEENT: Head is normocephalic, atraumatic. Oral cavity moist, pink tongue. NECK: Supple, no JVD, no carotid bruit. Trachea in midline. CHEST: Bilateral breath sounds. No crackles or wheezing. HEART: S1, S2 within normal limits. Regular rhythm. No murmur, no gallop. ABDOMEN: Soft, nontender, nondistended. Bowel sounds present. EXTREMITIES: No cyanosis, no clubbing, no edema. NEUROLOGIC: Alert and awake. CURRENT LABORATORY DATA: Shows WBC count is 5800. Blood glucose levels today 249, 392. IMPRESSION: 1. Uncontrolled diabetes mellitus type 2. 2. Agitation. 3. Psychosis and confusion. 4. Pacemaker. 5. Schizophrenia. 6. Hypertension. 6. Dementia. 7. Azotemia, improved. RECOMMENDATION: Continue same treatment. Monitor Chem strip again. Depending on other Chem strip, we will decide further therapy. JOB# [id number]
[2018-07-12] MEDS: INSULIN ASPART SLIDING SCALE 100 UNITS/ML UNIT SUBQ SCH ×4 (06:44→21:05)
[2018-07-12] MEDS: Fish Oil 1,000 MG SGL PO SCH (09:43)
[2018-07-12] MEDS: Multivitamin Tab PO SCH (09:43)
[2018-07-12] MEDS: Insulin Detemir 100 units/mL 10mL Vial SUBQ SCH ×2 (09:54→16:40)
--- NOTE | 2018-07-12 13:20 | Progress Notes ---
DATE: 07/12/2018 Case was discussed with staff of the patient, reviewed records. The patient's lab work came with her CMP with high blood sugar. The rest within normal range. Her CBC was within normal range. Ammonia level within normal range. TSH within normal range. She is currently confused, unable to tell me the date, where she is, why she is here. She is sleeping better, eating better. No side effects of the medication. No sedation, no nausea as she is currently not on any psychotropic medications; however, she has uncontrollable diabetes. She has a pacemaker, hypertension, demented, confused. Unable to make safe plan for self-care and we will continue outpatient group therapy, and milieu therapy. The patient on Namenda 5 mg daily, that is only psychotropic and too early to increase it. We will continue the patient in group therapy, milieu therapy, and adjust medication as needed. [facility]# [id number]
--- NOTE | 2018-07-12 16:00 | Infectious Disease Prog Note ---
Infectious Disease Subjective - Review of Systems Service Date: 07/12/18 Subjective: doing better, no fever. no cp. c/o SOB. Infectious Disease Objective - Results Result Diagrams: 07/10/18 07:00 07/10/18 07:00 Recent Labs: Laboratory Last Values WBC 5.8 Th/cmm (4.8-10.8) 07/10/18 07:00 RBC 4.88 Mil/cmm (3.80-5.10) 07/10/18 07:00 Hgb 14.7 gm/dL (12-16) 07/10/18 07:00 Hct 42.3 % (41.0-60) 07/10/18 07:00 MCV 86.5 fl (81-100) 07/10/18 07:00 MCH 30.1 pg (27.0-31.0) 07/10/18 07:00 MCHC Differential 34.7 pg (28.0-36.0) 07/10/18 07:00 RDW 12.2 % (11.5-20.0) 07/10/18 07:00 Plt Count 203 Th/cmm (150-400) 07/10/18 07:00 MPV 7.6 fl 07/10/18 07:00 Neutrophils % 64.2 % (40.0-80.0) 07/10/18 07:00 Lymphocytes % 25.4 % (20.0-50.0) 07/10/18 07:00 Monocytes % 7.2 % (2.0-10.0) 07/10/18 07:00 Eosinophils % 2.0 % (0.0-5.0) 07/10/18 07:00 Basophils % 1.2 % (0.0-2.0) 07/10/18 07:00 Sodium 136 mEq/L (136-145) 07/10/18 07:00 Potassium 4.2 mEq/L (3.5-5.1) 07/10/18 07:00 Chloride 100 mEq/L (98-107) 07/10/18 07:00 Carbon Dioxide 27.4 mEq/L (21.0-31.0) 07/10/18 07:00 Anion Gap 12.8 (7.0-16.0) 07/10/18 07:00 BUN 22 mg/dL (7-25) 07/10/18 07:00 Creatinine 0.9 mg/dL (0.6-1.2) 07/10/18 07:00 Est GFR ( Amer) > 60.0 ml/min (>90) 07/10/18 07:00 Est GFR (Non-Af Amer) > 60.0 ml/min 07/10/18 07:00 BUN/Creatinine Ratio 24.4 07/10/18 07:00 Glucose 529 mg/dL (70-105) H* 07/10/18 17:01 POC Glucose 145 MG/DL (70 - 105) H 07/12/18 06:40 Calcium 9.8 mg/dL (8.6-10.3) 07/10/18 07:00 Total Bilirubin 0.9 mg/dL (0.3-1.0) 07/10/18 07:00 AST 31 U/L (13-39) 07/10/18 07:00 ALT 39 U/L (7-52) 07/10/18 07:00 Alkaline Phosphatase 107 U/L (34-104) H 07/10/18 07:00 Ammonia 39 umol/L (16-53) 07/10/18 07:00 Total Protein 6.8 gm/dL (6.0-8.3) 07/10/18 07:00 Albumin 4.1 gm/dL (3.7-5.3) 07/10/18 07:00 Globulin 2.7 gm/dL 07/10/18 07:00 Albumin/Globulin Ratio 1.5 (1.0-1.8) 07/10/18 07:00 Triglycerides 105 mg/dL (<150) 07/08/18 15:23 Cholesterol 151 mg/dL (<200) 07/08/18 15:23 LDL Cholesterol Direct 82 mg/dL (75-193) 07/08/18 15:23 HDL Cholesterol 58 mg/dL (23-92) 07/08/18 15:23 Vitamin B12 523 pg/mL (232-1245) 07/10/18 07:00 TSH 0.98 uIU/ml (0.34-5.60) 07/10/18 07:00 RPR NONREACTIVE (NONREACTIVE) 07/10/18 07:00 HIV 1&2 Antibody Screen Non Reactive (Non Reactive) 07/10/18 07:00 - Physical Exam Vitals and I&O: Vital Signs Temp 97.6 F 07/12/18 14:00 Pulse 80 07/12/18 14:00 Resp 20 07/12/18 14:00 BP 127/60 07/12/18 14:00 Pulse Ox 98 07/12/18 14:00 Intake & Output 07/11/18 07/12/18 07/12/18 18:59 06:59 18:59 Intake Total 1200 240 Balance 1200 240 Intake: Oral 1200 240 Other: # Voids 4 3 # Bowel Movements 1 0 Active Medications: Current Medications Acetaminophen (Tylenol) 650 mg PO Q4HR PRN PRN Reason: Pain (Mild) 1-3 Stop: 09/08/18 03:05 Al Hydrox/Mg Hydrox/Simethicone (Maalox) 30 ml PO Q4HR PRN PRN Reason: GI DISTRESS Stop: 09/06/18 20:51 Docusate Sodium (Colace) 100 mg PO BID [facility] Stop: 09/07/18 08:59 Last Admin: 07/12/18 09:42 Dose: 100 mg Fish Oil ([place] 3) 1,000 mg PO DAILY [facility] Stop: 09/07/18 08:59 Last Admin: 07/12/18 09:43 Dose: 1,000 mg Glipizide (Glucotrol) 5 mg PO QDAC [facility] Stop: 09/07/18 07:29 Last Admin: 07/12/18 06:38 Dose: 5 mg Hydralazine HCl (Apresoline) 75 mg PO TID [facility] Stop: 09/06/18 21:59 Last Admin: 07/12/18 13:48 Dose: Not Given Insulin Aspart (Novolog Insulin Sliding Scale) 0 units SUBQ ACHS [facility]; Protocol Stop: 09/06/18 20:59 Last Admin: 07/12/18 12:11 Dose: 6 units Insulin Detemir (Levemir Insulin) 25 units SUBQ BID [facility]; Protocol Stop: 09/09/18 08:59 Last Admin: 07/12/18 09:54 Dose: 25 unit Lorazepam (Ativan) 0.5 mg PO Q4HR PRN; Protocol PRN Reason: Anxiety Stop: 08/07/18 20:51 Last Admin: 07/11/18 20:44 Dose: 0.5 mg Magnesium Hydroxide (Milk Of Magnesia) 30 ml PO HS PRN PRN Reason: Constipation Memantine (Namenda) 5 mg PO DAILY [facility] Stop: 09/07/18 08:59 Last Admin: 07/12/18 09:43 Dose: 5 mg Metoprolol Tartrate (Lopressor) 25 mg PO DAILY [facility] Stop: 09/07/18 08:59 Last Admin: 07/12/18 09:43 Dose: 25 mg Multivitamins/Vitamin C (Theragran) 1 tab PO DAILY [facility] Stop: 09/07/18 08:59 Last Admin: 07/12/18 09:43 Dose: 1 tab Psyllium Hydrophilic Mucilloid (Metamucil) 1 pkt PO BID [facility] Stop: 09/07/18 08:59 Last Admin: 07/12/18 09:44 Dose: Not Given Simvastatin (Zocor) 40 mg PO HS [facility]; Protocol Stop: 09/06/18 21:59 Last Admin: 07/11/18 20:43 Dose: 40 mg Zolpidem Tartrate (Ambien) 5 mg PO HSMR1 PRN PRN Reason: Insomnia Stop: 09/06/18 20:51 Last Admin: 07/11/18 20:44 Dose: 5 mg General: no acute distress, well developed, well nourished HEENT: atraumatic, normocephalic, PERRLA Neck: supple, no thyromegaly Cardiovascular: S1S2, regular Lungs: clear to auscultation bilaterally, clear to percussion Abdomen: soft, bowel sounds, no tender, no distended, no hepatomegaly Extremities: no cyanosis, no clubbing Neurological: awake, alert Infectious Disease Assmt/Plan - Assessment Assessment: 1. Agitation. 2. Psychosis, confusion, stable, 3. Pacemaker for arrhythmia/SSS. 4. Diabetes mellitus, uncontrolled secondary to noncompliance. 5. Schizophrenia. 6. Hypertension. 7. Dementia. 8. Azotemia, improved. - Plan Plan: CPM. monitor chemstrip. Nutritional Asmnt/Malnutr-PDOC - Dietary Evaluation Malnutrition Findings (Please click <Entered> for more info): Nutritional Asmnt/Malnutrition Start: 07/10/18 15: 09 Text: Status: Complete Freq: Protocol: Document 07/10/18 15:09 PARAS (Rec: 07/10/18 15:15 LCHENG [email or web address]) Nutritional Asmnt/Malnutrition Patient General Information Nutritional Screening High Risk Consult Diagnosis psychosis Pertinent Medical Hx/Surgical Hx DM type2, HTN, demnetia, pacemaker, cardiomyopathy Subjective Information Consult received for glucose 182 at admission. Pt seen lying in bed at time of visit, awake and confused. Pt stated she likes sweets, chocolate, ice cream. Brieflly explained current CCHO 60gm diet for pt. Pt has no question or concern . Per EMR, PO intake 15-100% on 07/09. Pt stated appetite is good. Current Diet Order/ Nutrition Support CCHO 60gm Pertinent Medications colace, omega 3, glucotrol, novolog, levemir, theragran Pertinent Labs 07/10 glucose 266, POC 239 07/09 POC 254-369 Nutritional Hx/Data Height 1.63 m Height (Calculated Centimeters) 162.6 Current Weight (lbs) 49.895 kg Weight (Calculated Kilograms) 49.9 Weight (Calculated Grams) 20230.2 [place] Body Weight 120 Body Mass Index (BMI) 18.8 Weight Status Approriate GI Symptoms GI Symptoms None Last BM not indicated Difficult in: None Skin Integrity/Comment: dryness, daniel 19 Current %PO Fair (50-74%) Estimated Nutritional Goals BEE in Kcals: Using Current wt Calories/Kcals/Kg 27-32 Kcals Calculated 5684-7044 Protein: Using Current wt Protein g/k-1.2 Protein Calculated 50-60 Fluid: ml 1350-1600ml (1ml/kcal) Nutritional Problem 1. Problem Problem altered nutrition relatedl abs Etiology hx of DM, hyperglycemia Signs/Symptoms: glucose 266, POC 239-369 Intervention/Recommendation Comments 1. Continue with CCHO 60-gm diet as ordered. MD to adjust insulin regimen for optimal glycemic control. 2. Monitor PO intake, wt, labs and skin integrity 3. F/U as moderate risk in 3-5 days, 07/13-07/15, PO check 07/12 Expected Outcomes/Goals Expected Outcomes/Goals 1. PO intake to meet at least 75% of nutritional needs. 2. Wt stability, skin to remain intact, labs to approach WNL.
[2018-07-13] MEDS: INSULIN ASPART SLIDING SCALE 100 UNITS/ML UNIT SUBQ SCH ×4 (06:39→21:01)
[2018-07-13] MEDS: Multivitamin Tab PO SCH (10:00)
[2018-07-13] MEDS: Fish Oil 1,000 MG SGL PO SCH (10:00)
[2018-07-13] MEDS: Insulin Detemir 100 units/mL 10mL Vial SUBQ SCH ×2 (10:00→16:46)
--- NOTE | 2018-07-13 14:37 | Infectious Disease Prog Note ---
Infectious Disease Subjective - Review of Systems Service Date: 07/13/18 Subjective: doing better, no fever. no cp. c/o SOB. Patient eats candies, shich can bring her glucose up. Infectious Disease Objective - Results Result Diagrams: 07/10/18 07:00 07/10/18 07:00 Recent Labs: Laboratory Last Values WBC 5.8 Th/cmm (4.8-10.8) 07/10/18 07:00 RBC 4.88 Mil/cmm (3.80-5.10) 07/10/18 07:00 Hgb 14.7 gm/dL (-16) 07/10/18 07:00 Hct 42.3 % (41.0-60) 07/10/18 07:00 MCV 86.5 fl (81-100) 07/10/18 07:00 MCH 30.1 pg (27.0-31.0) 07/10/18 07:00 MCHC Differential 34.7 pg (28.0-36.0) 07/10/18 07:00 RDW 12.2 % (11.5-20.0) 07/10/18 07:00 Plt Count 203 Th/cmm (150-400) 07/10/18 07:00 MPV 7.6 fl 07/10/18 07:00 Neutrophils % 64.2 % (40.0-80.0) 07/10/18 07:00 Lymphocytes % 25.4 % (20.0-50.0) 07/10/18 07:00 Monocytes % 7.2 % (2.0-10.0) 07/10/18 07:00 Eosinophils % 2.0 % (0.0-5.0) 07/10/18 07:00 Basophils % 1.2 % (0.0-2.0) 07/10/18 07:00 Sodium 136 mEq/L (136-145) 07/10/18 07:00 Potassium 4.2 mEq/L (3.5-5.1) 07/10/18 07:00 Chloride 100 mEq/L (98-107) 07/10/18 07:00 Carbon Dioxide 27.4 mEq/L (21.0-31.0) 07/10/18 07:00 Anion Gap 12.8 (7.0-16.0) 07/10/18 07:00 BUN 22 mg/dL (7-25) 07/10/18 07:00 Creatinine 0.9 mg/dL (0.6-1.2) 07/10/18 07:00 Est GFR ( Amer) > 60.0 ml/min (>90) 07/10/18 07:00 Est GFR (Non-Af Amer) > 60.0 ml/min 07/10/18 07:00 BUN/Creatinine Ratio 24.4 07/10/18 07:00 Glucose 529 mg/dL (70-105) H* 07/10/18 17:01 POC Glucose 298 MG/DL (70 - 105) H 07/13/18 11:39 Calcium 9.8 mg/dL (8.6-10.3) 07/10/18 07:00 Total Bilirubin 0.9 mg/dL (0.3-1.0) 07/10/18 07:00 AST 31 U/L (13-39) 07/10/18 07:00 ALT 39 U/L (7-52) 07/10/18 07:00 Alkaline Phosphatase 107 U/L (34-104) H 07/10/18 07:00 Ammonia 39 umol/L (16-53) 07/10/18 07:00 Total Protein 6.8 gm/dL (6.0-8.3) 07/10/18 07:00 Albumin 4.1 gm/dL (3.7-5.3) 07/10/18 07:00 Globulin 2.7 gm/dL 07/10/18 07:00 Albumin/Globulin Ratio 1.5 (1.0-1.8) 07/10/18 07:00 Triglycerides 105 mg/dL (<150) 07/08/18 15:23 Cholesterol 151 mg/dL (<200) 07/08/18 15:23 LDL Cholesterol Direct 82 mg/dL (75-193) 07/08/18 15:23 HDL Cholesterol 58 mg/dL (23-92) 07/08/18 15:23 Vitamin B12 523 pg/mL (232-1245) 07/10/18 07:00 TSH 0.98 uIU/ml (0.34-5.60) 07/10/18 07:00 RPR NONREACTIVE (NONREACTIVE) 07/10/18 07:00 HIV 1&2 Antibody Screen Non Reactive (Non Reactive) 07/10/18 07:00 - Physical Exam Vitals and I&O: Vital Signs Temp 97.8 F 07/13/18 05:37 Pulse 60 07/13/18 10:14 Resp 19 07/13/18 05:37 BP 128/67 07/13/18 10:14 Pulse Ox 99 07/13/18 05:37 Intake & Output 07/12/18 07/13/18 07/13/18 18:59 06:59 18:59 Intake Total 1000 120 Balance 1000 120 Intake: Oral 1000 120 Other: # Voids 4 3 # Bowel Movements 1 0 Active Medications: Current Medications Acetaminophen (Tylenol) 650 mg PO Q4HR PRN PRN Reason: Pain (Mild) 1-3 Stop: 09/08/18 03:05 Al Hydrox/Mg Hydrox/Simethicone (Maalox) 30 ml PO Q4HR PRN PRN Reason: GI DISTRESS Stop: 09/06/18 20:51 Docusate Sodium (Colace) 100 mg PO BID [facility] Stop: 09/07/18 08:59 Last Admin: 07/13/18 10:00 Dose: 100 mg Donepezil HCl (Aricept) 5 mg PO HS [facility] Stop: 09/11/18 20:59 Fish Oil (Black 3) 1,000 mg PO DAILY [facility] Stop: 09/07/18 08:59 Last Admin: 07/13/18 10:00 Dose: 1,000 mg Glipizide (Glucotrol) 5 mg PO QDAC [facility] Stop: 09/07/18 07:29 Last Admin: 07/13/18 06:39 Dose: 5 mg Hydralazine HCl (Apresoline) 75 mg PO TID [facility] Stop: 09/06/18 21:59 Last Admin: 07/13/18 10:00 Dose: Not Given Insulin Aspart (Novolog Insulin Sliding Scale) 0 units SUBQ ACHS [facility]; Protocol Stop: 09/06/18 20:59 Last Admin: 07/13/18 11:47 Dose: 6 units Insulin Detemir (Levemir Insulin) 25 units SUBQ BID [facility]; Protocol Stop: 09/09/18 08:59 Last Admin: 07/13/18 10:00 Dose: 25 unit Lorazepam (Ativan) 0.5 mg PO Q4HR PRN; Protocol PRN Reason: Anxiety Stop: 08/07/18 20:51 Last Admin: 07/12/18 20:53 Dose: 0.5 mg Magnesium Hydroxide (Milk Of Magnesia) 30 ml PO HS PRN PRN Reason: Constipation Memantine (Namenda) 5 mg PO DAILY [facility] Stop: 09/07/18 08:59 Last Admin: 07/13/18 10:00 Dose: 5 mg Metoprolol Tartrate (Lopressor) 25 mg PO DAILY [facility] Stop: 09/07/18 08:59 Last Admin: 07/13/18 10:14 Dose: 25 mg Multivitamins/Vitamin C (Theragran) 1 tab PO DAILY [facility] Stop: 09/07/18 08:59 Last Admin: 07/13/18 10:00 Dose: 1 tab Psyllium Hydrophilic Mucilloid (Metamucil) 1 pkt PO BID [facility] Stop: 09/07/18 08:59 Last Admin: 07/13/18 10:00 Dose: Not Given Simvastatin (Zocor) 40 mg PO HS [facility]; Protocol Stop: 09/06/18 21:59 Last Admin: 07/12/18 20:53 Dose: 40 mg Zolpidem Tartrate (Ambien) 5 mg PO HSMR1 PRN PRN Reason: Insomnia Stop: 09/06/18 20:51 Last Admin: 07/12/18 20:53 Dose: 5 mg General: no acute distress, well developed, well nourished HEENT: atraumatic, normocephalic, PERRLA Neck: supple, no thyromegaly Cardiovascular: S1S2, regular Lungs: clear to auscultation bilaterally, clear to percussion Abdomen: soft, no tender, no distended Extremities: no cyanosis, no clubbing, no edema Neurological: awake, alert, oriented Skin: intact Infectious Disease Assmt/Plan - Assessment Assessment: 1. Agitation. 2. Psychosis, confusion, stable, 3. Pacemaker for arrhythmia/SSS. 4. Diabetes mellitus, uncontrolled secondary to noncompliance. 5. Schizophrenia. 6. Hypertension. 7. Dementia. 8. Azotemia, improved. - Plan Plan: Continue same treatment. Add metformin.check HbA1c Nutritional Asmnt/Malnutr-PDOC - Dietary Evaluation Malnutrition Findings (Please click <Entered> for more info): Nutritional Asmnt/Malnutrition Start: 07/10/18 15: 09 Text: Status: Complete Freq: Protocol: Document 07/10/18 15:09 [id number] (Rec: 07/10/18 15:15 [email or web address]) Nutritional Asmnt/Malnutrition Patient General Information Nutritional Screening High Risk Consult Diagnosis psychosis Pertinent Medical Hx/Surgical Hx DM type2, HTN, demnetia, pacemaker, cardiomyopathy Subjective Information Consult received for glucose 182 at admission. Pt seen lying in bed at time of visit, awake and confused. Pt stated she likes sweets, chocolate, ice cream. Brieflly explained current [facility] 60gm diet for pt. Pt has no question or concern . Per EMR, PO intake 15-100% on 07/09. Pt stated appetite is good. Current Diet Order/ Nutrition Support CCHO 60gm Pertinent Medications colace, omega 3, glucotrol, novolog, levemir, theragran Pertinent Labs 07/10 glucose 266, POC 239 07/09 POC 254-369 Nutritional Hx/Data Height 1.63 m Height (Calculated Centimeters) 162.6 Current Weight (lbs) 49.895 kg Weight (Calculated Kilograms) 49.9 Weight (Calculated Grams) 95324.2 [place] Body Weight 120 Body Mass Index (BMI) 18.8 Weight Status Approriate GI Symptoms GI Symptoms None Last BM not indicated Difficult in: None Skin Integrity/Comment: daniel leahy 19 Current %PO Fair (50-74%) Estimated Nutritional Goals BEE in Kcals: Using Current wt Calories/Kcals/Kg 27-32 Kcals Calculated 0743-0730 Protein: Using Current wt Protein g/k-1.2 Protein Calculated 50-60 Fluid: ml 1350-1600ml (1ml/kcal) Nutritional Problem 1. Problem Problem altered nutrition relatedl abs Etiology hx of DM, hyperglycemia Signs/Symptoms: glucose 266, POC 239-369 Intervention/Recommendation Comments 1. Continue with CCHO 60-gm diet as ordered. MD to adjust insulin regimen for optimal glycemic control. 2. Monitor PO intake, wt, labs and skin integrity 3. F/U as moderate risk in 3-5 days, 07/13-07/15, PO check 07/12 Expected Outcomes/Goals Expected Outcomes/Goals 1. PO intake to meet at least 75% of nutritional needs. 2. Wt stability, skin to remain intact, labs to approach WNL.
--- NOTE | 2018-07-14 00:11 | Progress Notes ---
DATE: 07/13/2018 SUBJECTIVE: Case was discussed with staff of the patient, reviewed records. The patient is demented, confused, has been taking food from other patients. Continues to need redirection. The patient was in ICU, so I am reluctant to give her any antipsychotic and she is unpredictable and impulsive. I will be initiating Aricept on this patient and to help with her confusion. I asked the staff to make sure they monitor her closely because of her diabetes. She is taking candies some other patients and eating it and her lab work for high blood sugar at 298 today and we will keep the patient in group therapy, milieu therapy, adjust medication as needed. JOB# [id number]
[2018-07-14] MEDS: INSULIN ASPART SLIDING SCALE 100 UNITS/ML UNIT SUBQ SCH ×4 (06:43→21:54)
[2018-07-14] MEDS: Multivitamin Tab PO SCH (08:54)
[2018-07-14] MEDS: Fish Oil 1,000 MG SGL PO SCH (08:55)
[2018-07-14] MEDS: Insulin Detemir 100 units/mL 10mL Vial SUBQ SCH ×2 (09:22→17:27)
--- NOTE | 2018-07-14 13:45 | Discharge Summary ---
DATE OF DISCHARGE: 07/14/2018 IDENTIFYING INFORMATION: The patient is a 62-year-old female. HISTORY OF PRESENT ILLNESS: The patient is with history of dementia, schizophrenia. She was brought from nursing facility for agitation with multiple medical problems, diabetes, heart block, cleared from ICU, then transferred here. She is in the Geropsych Unit. The patient was confused, very agitated, requiring emergency medication, Haldol cocktail ordered by Dr. Sarabia. Staff note that she was resistant to care, irritable, does not want to be touched, refusing assessment, unruly behavior. The patient with a history of dementia. She is well-known case. I have been seeing her at [place]. COURSE IN THE HOSPITAL: The patient was continued with medications. The patient was on the Docusate. I initiated Aricept on her 5 mg at bedtime. She was taken off his psychotropic she is on insulin, hydralazine. The patient continues to be confused. She is also on Namenda 5 mg daily, metformin, metoprolol, multivitamin. I refrained simvastatin, from giving her an antipsychotic because of her heart condition; however, she was easy to redirect. She tended to go sleep and some other people room. However, felt there is nothing more we can do for her. She is demented, confused, and can be managed in the nursing facility, has had very good staff and being taken care, her medication could be adjusted there. FINAL DIAGNOSES: 1. Schizophrenia, undifferentiated 2. Dementia. MEDICAL DIAGNOSES: As per Dr. Humphries. The patient has diabetes mellitus type 2, hypertension, pacemaker placement, cardiomyopathy. The patient will be going back to [place]. I will follow up with the patient there as well as her doctors. EXPECTED OUTCOME: Stable. JOB# [id number]
[2018-07-15] MEDS: INSULIN ASPART SLIDING SCALE 100 UNITS/ML UNIT SUBQ SCH ×4 (06:50→20:49)
[2018-07-15] MEDS: Fish Oil 1,000 MG SGL PO SCH (09:49)
[2018-07-15] MEDS: Multivitamin Tab PO SCH (09:50)
[2018-07-15] MEDS: Insulin Detemir 100 units/mL 10mL Vial SUBQ SCH ×2 (09:50→17:18)
[2018-07-16] MEDS: INSULIN ASPART SLIDING SCALE 100 UNITS/ML UNIT SUBQ SCH ×4 (06:43→20:35)
[2018-07-16] MEDS: Fish Oil 1,000 MG SGL PO SCH (09:23)
[2018-07-16] MEDS: Insulin Detemir 100 units/mL 10mL Vial SUBQ SCH ×2 (09:24→17:04)
[2018-07-16] MEDS: Multivitamin Tab PO SCH (09:24)
--- NOTE | 2018-07-17 06:11 | Progress Notes ---
DATE: 07/16/2018 The patient was seen and evaluated. The patient's chart reviewed. COVERING FOR: Dr. Hurtado. Nursing staff reported no acute events overnight. No side effects. Today on [id number] evaluation, denies any concerns, complain of side effects of the medications. Nursing staff also reported that she has been engaging. ASSESSMENT AND PLAN: The patient is with history of schizophrenia. No complications and side effect of medications. Awaiting safe disposition when bed available. JOB# [id number]
[2018-07-17] MEDS: INSULIN ASPART SLIDING SCALE 100 UNITS/ML UNIT SUBQ SCH ×3 (06:38→16:29)
[2018-07-17] MEDS: Fish Oil 1,000 MG SGL PO SCH (09:40)
[2018-07-17] MEDS: Multivitamin Tab PO SCH (09:43)
[2018-07-17] MEDS: Insulin Detemir 100 units/mL 10mL Vial SUBQ SCH ×2 (10:07→16:30)
--- NOTE | 2018-07-17 16:59 | Progress Notes ---
DATE: 07/17/[address] Hurtado. No acute events reported overnight by the nursing staff. Today on [id number] evaluation, denies any complicating side effects to medications. MENTAL STATUS EXAMINATION: Calmer, engaging, no side effects. ASSESSMENT AND PLAN: Waiting safe disposition when bed available. [facility]# [id number]
--- NOTE | 2018-07-18 01:33 | Progress Notes ---
DATE: 07/15/2018 Today on [id number] no concerns of side effects of medications. The patient is pending discharge. MENTAL STATUS EXAMINATION: No concern of side effects. ASSESSMENT AND PLAN: Schizophrenia with no complicated towards medications, await and see, disposition when bed available. JOB# [id number]
== END 2018-07-17 17:22 | DRG 885 ==
LOC: GERO 18:55
PROVIDERS: ADMIT Psychiatry & Neurology Psychiatry; ATTEND Psychiatry & Neurology Psychiatry
DX: F20.3 Undifferentiated schizophrenia (principal); I42.9 Cardiomyopathy, unspecified; F29 Unspecified psychosis not due to a substance or known physiological condition; F03.90 Unspecified dementia, unspecified severity, without behavioral disturbance, psychotic disturbance, mood disturbance, and anxiety; F41.9 Anxiety disorder, unspecified; F39 Unspecified mood [affective] disorder; I10 Essential (primary) hypertension; E11.51 Type 2 diabetes mellitus with diabetic peripheral angiopathy without gangrene; E78.5 Hyperlipidemia, unspecified; F32.9 Major depressive disorder, single episode, unspecified; I70.203 Unspecified atherosclerosis of native arteries of extremities, bilateral legs; I49.9 Cardiac arrhythmia, unspecified; Z91.14 Patient's other noncompliance with medication regimen; Z95.0 Presence of cardiac pacemaker
CPT/HCPCS: 36415-UA; 80053-TC; 80061-TC; 82140-TC; 82607-90; 82947-TC; 82948-90; 83036-90; 84443-TC; 85025-TC; 86592-TC; 87389-90; J1815

== ENCOUNTER 2018-08-14 13:39 | Emergency (ER) | payer MEDICARE, OTHER ==
--- NOTE | 2018-08-14 14:11 | ED Physician Chart ---
ED Chief Complaint/HPI - Patient Information Date Seen:: 08/14/18 Time Seen:: 14:05 Chief Complaint:: high blood sugar History of Present Illness:: this is a chronically ill diabetic female sent to the er for an evaluation of a high blood sugar. Allergies:: Allergies Allergy/AdvReac Type Severity Reaction Status Date / Time No Known Allergies Allergy Verified 03/07/17 21:52 Historian:: Medical Records Review:: Nurse's Note Reviewed, Old Chart Reviewed, Transfer documents Reviewed ED Review of Systems - Review of Systems General/Constitutional: No fever, No chills, No weight loss, No weakness, No diaphoresis, No edema, No loss of appetite, Other (this patient is not able give a review of systems) Skin: No skin lesions, No rash, No bruising Head: No headache, No light-headedness Eyes: No loss of vision, No pain, No diplopia ENT: No earache, No nasal drainage, No sore throat, No tinnitus Neck: No neck pain, No swelling, No thyromegaly, No stiffness, No mass noted Cardio Vascular: No chest pain, No palpitations, No PND, No orthopnea, No edema Pulmonary: No SOB, No cough, No sputum, No wheezing GI: No nausea, No vomiting, No diarrhea, No pain, No melena, No hematochezia, No constipation, No hematemesis G/U: No dysuria, No frequency, No hematuria Musculoskeletal: No bone or joint pain, No back pain, No muscle pain Endocrine: No polyuria, No polydipsia Psychiatric: No prior psych history, No depression, No anxiety, No suicidal ideation Hematopoietic: No bruising, No lymphadenopathy Allergic/Immuno: No urticaria, No angioedema Neurological: No syncope, No focal symptoms, No weakness, No paresthesia, No headache, No seizure, No dizziness, No confusion, No vertigo ED Past Medical History - Past Medical History Obtainable: Yes Past Medical History: HTN, DM, CAD, Dementia Family History: None Social History: Non Smoker, No Alcohol, No Drug Use, Care Facility Surgical History: Pacemaker Family Medical History - Family Member Mother History Unknown: Yes Ethnicity: Non- Living Status: Still Living Hx Family Diabetes: Yes Father History Unknown: Yes ED Physical Exam - Physical Examination General/Constitutional: Awake, Well-developed, well-nourished, Alert, No distress, GCS 15, Non-toxic appearing, Ambulatory Head: Atraumatic Eyes: Lids, conjuctiva normal, PERRL, EOMI Skin: Nl inspection, No rash, No skin lesions, No ecchymosis, Well hydrated, No lymphadenopathy ENMT: External ears, nose nl, Nasal exam nl, Lips, teeth, gums nl Neck: Nontender, Full ROM w/o pain, No JVD, No nuchal rigidity, No bruit, No mass, No stridor Respiratory: Nl effort/Exclusion, Clear to Auscultation, No Wheeze/Rhonchi/Rales Cardio Vascular: RRR, No murmur, gallop, rubs, NL S1 S2 GI: No tenderness/rebounding/guarding, No organomegaly, No hernia, Normal BS's, Nondistended, No mass/bruits, No McBurney tenderness : No CVA tenderness Extremities: No tenderness or effusion, Full ROM, normal strength in all extremities, No edema, Normal digits & nails Neuro/Psych: Alert/oriented, DTR's symmetric, Normal sensory exam, Normal motor strength, Judgement/insight normal (poor judgement), Mood normal, Normal gait, No focal deficits Misc: Normal back, No paraspinal tenderness ED Labs/Radiology/EKG Results - Lab Results Results: Abnormal Lab Results 08/14/18 08/14/18 08/14/18 13:55 13:55 13:55 WBC 6.3 RBC 4.16 Hgb 12.3 Hct 36.0 L MCV 86.6 MCH 29.5 MCHC Differential 34.1 RDW 12.4 Plt Count 266 MPV 7.0 Neutrophils % 64.4 Lymphocytes % 24.5 Monocytes % 8.8 Eosinophils % 1.4 Basophils % 0.9 Sodium 135 L Potassium 4.2 Chloride 101 Carbon Dioxide 23.3 Anion Gap 14.9 BUN 17 Creatinine 1.0 Est GFR ( Amer) > 60.0 Est GFR (Non-Af Amer) 59.3 BUN/Creatinine Ratio 17.0 Glucose 353 H Calcium 9.2 Total Bilirubin 0.3 AST 14 ALT 15 Alkaline Phosphatase 80 Troponin I 0.01 Total Protein 6.1 Albumin 3.6 L Globulin 2.5 Albumin/Globulin Ratio 1.4 - Radiology Results Results: chest x-ray = nad - EKG Interpretations EKG Time:: 13:49 Rate & Rhythm: rate=64, sinus [place]: left ED Assessment - Assessment General Assessment: high blood sugar ED Septic Shock - . Is Septic Shock (SBP<90, OR Lactate>4 mmol\L) present?: No ED Reassessment (Disposition) - Reassessment Reassessment Condition:: Improved - Diagnosis Diagnosis:: diabetes mellitus dementia urinary tract infection - Aftercare/Follow up Instructions Aftercare/Follow-Up Instructions:: Counseled pt regarding lab results/diagnosis & need follow up, Refer to Discharge Instructions, Counseled pt & family regarding lab results/diagnosis & need follow up - Patient Disposition Discharge/Transfer:: Home Condition at Disposition:: Improved
--- NOTE | 2018-08-14 14:12 | Diagnostic Imaging Report ---
Portable chest x-ray HISTORY: Cough There is a poor inspiration. The heart appears somewhat enlarged. Cardiac pacemaker wires project over the right atrium and right ventricle. No acute focal point processes. Surgical hardware is seen within the thoracic spine. IMPRESSION: 1. No acute pulmonary processes
[2018-08-14 14:16] LABS: URINE SOURCE CLEAN C
[2018-08-14 14:20] LABS: URINE BILIRUBIN NEGATIVE (NEGATIVE); URINE BLOOD NEGATIVE (NEGATIVE); URINE GLUCOSE (UA) >=1000 mg/dL (NEGATIVE); URINE KETONE NEGATIVE (NEGATIVE); URINE LEUKOCYTE ESTERASE TRACE (NEGATIVE); URINE MICROSCOPIC INDICATED? YES; URINE NITRATE NEGATIVE (NEGATIVE); URINE PROTEIN NEGATIVE (NEGATIVE); URINE UROBILINOGEN 0.2 E.U./dL (0.2 - 1.0)
[2018-08-14 14:39] LABS: % BASOPHILS 0.9 % (0.0-2.0); % EOSINOPHILS 1.4 % (0.0-5.0); % LYMPHOCYTES 24.5 % (20.0-50.0); % MONOCYTES 8.8 % (2.0-10.0); % NEUTROPHILS 64.4 % (40.0-80.0); BASOPHILE ABSOLUTE 0.1 Th/cumm (0-0.2); EOSINOPHILE ABSOLUTE 0.1 Th/cmm (0.1-0.4); HEMOGLOBIN 12.3 gm/dL (12-16); LYMPHOCYTE ABSOLUTE 1.5 Th/cmm (1.5-3.0); MEAN CELL VOLUME 86.6 fl (81-100); MEAN CORPUSCULAR HEMOGLOBIN 29.5 pg (27.0-31.0); MEAN CORPUSCULAR HGB CONC 34.1 pg (28.0-36.0); MONOCYTE ABSOLUTE 0.6 Th/cmm (0.3-1.0); PLATELET COUNT 266 Th/cmm (150-400); RED BLOOD COUNT 4.16 Mil/cmm (3.80-5.10); RED CELL DISTRIBUTION WIDTH 12.4 % (11.5-20.0); WHITE BLOOD COUNT 6.3 Th/cmm (4.8-10.8)
[2018-08-14 14:41] LABS: ALB/GLOB RATIO 1.4 (1.0-1.8); ALBUMIN 3.6 gm/dL (3.7-5.3); ALKALINE PHOSPHATASE 80 U/L (34-104); ANION GAP 14.9 (7.0-16.0); BILIRUBIN,TOTAL 0.3 mg/dL (0.3-1.0); BUN - UREA NITROGEN 17 mg/dL (7-25); CALCIUM SERUM 9.2 mg/dL (8.6-10.3); CARBON DIOXIDE 23.3 mEq/L (21.0-31.0); CHLORIDE 101 mEq/L (98-107); GFR AFRICAN-AMERICAN > 60.0 ml/min (>90); GFR NON AFRICAN-AMERICAN 59.3 ml/min; GLUCOSE 353 mg/dL (70-105); POTASSIUM SERUM 4.2 mEq/L (3.5-5.1); SGOT 14 U/L (13-39); SGPT/ALT 15 U/L (7-52); SODIUM SERUM 135 mEq/L (136-145); TOTAL PROTEIN,SERUM 6.1 gm/dL (6.0-8.3)
[2018-08-14 14:59] LABS: URINE CLARITY HAZY (CLEAR); URINE COLOR YELLOW; URINE RBC 0-2 /hpf (0-5)
[2018-08-14 15:00] LABS: URINE BACTERIA FEW /hpf (NONE SEEN); URINE EPITHELIAL CELLS OCCASIONAL /lpf (FEW)
[2018-08-14] MEDS ORDERED: INSULIN ASPART, RECOMBINANT 100 UNITS/ML SUBQ ONE ×2 (15:00→15:02)
[2018-08-14] MEDS ORDERED: INSULIN LISPRO 100 UNIT/ML VIAL SUBQ SCH (15:00)
== END 2018-08-14 15:35 ==
LOC: ER 13:39
DX: E11.9 Type 2 diabetes mellitus without complications (principal); N39.0 Urinary tract infection, site not specified; F03.90 Unspecified dementia, unspecified severity, without behavioral disturbance, psychotic disturbance, mood disturbance, and anxiety; I10 Essential (primary) hypertension; I25.10 Atherosclerotic heart disease of native coronary artery without angina pectoris; Z95.1 Presence of aortocoronary bypass graft
CPT/HCPCS: 99284; 96372 ×3; 93005; 71045; 84484; 36415; 36416; 82948; 84443; 85025; 85730; 81001; 83036; 80053; 87081; 87040 ×2; J1815; J2060; J0696; Z7502

== ENCOUNTER 2019-09-17 18:05 | Inpatient (IN) | payer MEDICARE, OTHER ==
[2019-09-18 02:17] VITALS: BP 140/67
[2019-09-18] MEDS: INSULIN LISPRO SLIDING SCALE 100 UNITS/ML UNIT SUBQ SCH ×4 (06:32→20:58)
[2019-09-18] MEDS ORDERED: INSULIN LISPRO SLIDING SCALE 100 UNITS/ML UNIT SUBQ SCH (07:30)
--- NOTE | 2019-09-18 14:12 | History & Physical ---
ADMIT DATE: 09/18/2019 IDENTIFYING INFORMATION: The patient is a 63-year-old female. CHIEF COMPLAINT: No answer. HISTORY OF PRESENT ILLNESS: The patient sent from [facility] because of disrobing behavior, hard to redirect, easily agitated, not responding well to redirection. When I talked to her, she was walking and she kept walking. When I asked about that she is 23 that she is single, never . Unable to answer questions she would not answer any of my questions. The patient is demented and confused. She is on Aricept 5 mg at bedtime. She is also diabetic. PAST PSYCHIATRIC HISTORY: History of prior multiple admissions ,pt was at at [facility]. PAST MEDICAL HISTORY: ALLERGIES: She has no known drug allergies. She is diabetic. Deferred to the rest of the medical doctor. FAMILY HISTORY: Unobtainable. MENTAL STATUS EXAMINATION: The patient is appropriately dressed and appropriately groomed. She was alert. Unable to make safe plan for self-care or participate in meaningful conversation and long or short term memory is poor. She believes she is 23. Unable to tell the date, where she is, why she is here. Unable to answer questions regarding suicide, homicide, or hallucination. She has been disrobing herself . She had to be redirected many times and to put her clothes on. Her insight and judgment is impaired. IMPRESSION: 1. Dementia with behavior disturbance. 2. Psychosis, not otherwise specified. 3. Medical diagnoses as per medical doctor. INITIAL TREATMENT PLAN: The patient will be continued with medications, which include Namenda 5 mg twice a day. I will be increasing it to twice a day. We will do group therapy, milieu therapy, and individual therapy. ESTIMATED LENGTH OF STAY: 3-7 days. DISCHARGE CRITERIA: Decreasing agitation, no longer acting out. After discharge, outpatient treatment. JOB# [id number] [facility]
--- NOTE | 2019-09-18 17:53 | History and Physical ---
History of Present Illness - HPI Chief Complaint: 63 y/o female patient was brought from [facility] to ER for evaluation due to Increased Agitation, Hostile behavior and Confusion. HPI: 63 y/o female patient was admitted to [facility] for evaluation due to Increased Agitation, Hostile behavior and Confusion. Patient was not following commands and was very demented. Patient has history of Diabetes and Dementia. Patient had an ER assessment and a complete workup was done. Patient was diagnosed with Acute Psychosis. Patient will have a Psych consult. I will follow , treat and monitor patient. Patient will continue current treatment plan as ordered. Vital Signs: Last Vital Signs Temp 98.1 F 09/18/19 14:00 Pulse 64 09/18/19 14:45 Resp 18 09/18/19 14:00 BP 130/74 09/18/19 14:45 Pulse Ox 97 09/18/19 14:00 Past Medical History Cardiovascular: Report: No Pertinent Hx Pulmonary: Report: No Pertinent Hx CONFERENCE CENTER COORDINATOR: Report: Dementia Psych: Report: Psychosis Musculoskeletal: Report: No Pertinent Hx Rheumatologic: Report: No pertinent Hx Infectious Disease: Report: No Pertinent Hx Renal/: Report: No Pertinent Hx Endocrine: Report: Diabetes Dermatology: Report: No Pertinent Hx - Past Surgical History Past Surgical History: No pertinent Hx Family Medical History - Family Member Mother History Unknown: Yes Ethnicity: Non- Living Status: Still Living Hx Family Cancer: No Hx Family Coronary Artery Disease: No Hx Family Congestive Heart Failure: No Hx Family Hypertension: No Hx Family Stroke: No Hx Family Diabetes: Yes Hx Family Seizures: No Hx Family Dementia: No Hx Family AIDS: No Hx Family HIV: No Hx Family COPD: No Hx Family Hepatitis: No Hx Family Psychiatric Problems: No Hx Family Tuberculosis: No Father History Unknown: Yes Social History Smoke: No Alcohol: None Drugs: None Lives: [facility] Domestic Violence: Negative Health Maintenance Health Maintenance: Other (Please see chart.) - Medications Home Medications: Home Medication Medication Instructions Recorded Type Acetaminophen [Tylenol] 650 mg PO Q4HR PRN tab 07/17/18 Rx Docusate Sodium [Colace] 100 mg PO BID cap 07/17/18 Rx Acetaminophen [Tylenol] 650 mg PO PRN PRN 09/18/19 History Cholecalciferol (Vit D3) [Vitamin 1,000 iu PO DAILY 09/18/19 History D3] Donepezil Hcl [Aricept] 5 mg PO HS 09/18/19 History Hydralazine [Apresoline*] 75 mg PO TID 09/18/19 History Insulin Lispro Sliding Scale See Protocol SUBQ ACHS 09/18/19 History [humaLOG INSULIN SLIDING SCALE] Memantine [Namenda] 5 mg PO DAILY 09/18/19 History Simvastatin [Zocor] 40 mg PO HS 09/18/19 History metFORMIN [Glucophage] 1,000 mg PO BID 09/18/19 History Other Medications: Please see Medication Reconciliation sheet. - Allergies Allergies/Adverse Reactions: Allergies Allergy/AdvReac Type Severity Reaction Status Date / Time No Known Allergies Allergy Verified 08/14/18 14:15 Review of Systems - Review of Systems Review of Systems: Patient was admitted due to Increased agitation, Hostile behavior and confusion , needs close monitoring. Constitutional: Report: No Significant Eyes: Report: No Significant ENT: Report: No Significant Respiratory: Report: No Significant Cardiovascular: Report: No Significant Gastrointestinal: Report: No Significant Genitourinary: Report: No Significant Musculoskeletal: Report: No Significant Skin: Report: No Significant Neurological: Report: Weakness, Confusion Physical Exam - Physical Exam HEENT: Report: Ears Nose Throat within normal limits Neck: Report: Within normal limits Cardiovascular Systems: Report: +s1/s2 noted, Regular, Rate and Rhythm Respiratory: Report: Breath Sounds are within normal limits Abdomen: Report: Non-tender to palpation Back: Report: Inspection of back is within normal limits. Extremities: Report: Non-tender to palpation. Skin: Report: Color of skin is within normal limits Neuro/Psych: Report: Disoriented to name time or place - Lab Results All Lab Results last 24 hours: Laboratory Results - last 24 hr 09/18/19 09/18/19 06:08 11:17 POC Glucose 166 H 203 H - Assessment Assessment: Acute Psychosis. History of Diabetes. History of Dementia. - Plan Plan: Monitor vitals and Labs. Continue present meds as directed Accu-check daily, continue DM meds Monitor Diet/Nutritional Support Psych management as per Psych. Fall precaution Safety precaution Supportive Care Will Monitor patient and continue current treatment plan as ordered.
[2019-09-18] MEDS: Insulin Glargine 100 units/ml 10ml Vial SUBQ SCH (21:01)
[2019-09-19] MEDS: INSULIN LISPRO SLIDING SCALE 100 UNITS/ML UNIT SUBQ SCH ×4 (06:47→20:58)
--- NOTE | 2019-09-19 13:44 | Internal Medicine Prog Note ---
Internal Medicine Subjective - Subjective Service Date: 09/19/19 Patient seen and examined:: with staff, chart reviewed Patient is:: awake, verbal, agitated, confused Patient Complaints of:: other (Hx of Dementia.) Per staff patient has:: no adverse event, no episodes of fall Internal Medicine Objective - Results Recent Labs: Laboratory Last Values POC Glucose 211 MG/DL (70 - 105) H 09/19/19 11:46 - Physical Exam Vitals and I&O: Vital Signs Temp 98 F 09/19/19 06:46 Pulse 76 09/19/19 08:45 Resp 20 09/19/19 08:00 BP 131/75 09/19/19 08:45 Pulse Ox 100 09/19/19 06:46 Intake & Output 09/18/19 09/19/19 09/19/19 18:59 06:59 18:59 Intake Total 800 120 Balance 800 120 Intake: Oral 800 120 Other: # Voids 3 3 # Bowel Movements 0 0 Active Medications: Current Medications Acetaminophen (Tylenol) 650 mg PO Q4HR PRN PRN Reason: Pain (Mild) 1-3 Stop: 11/17/19 02:51 Acetaminophen (Tylenol) 650 mg PO Q4H PRN PRN Reason: Temperature Above 100.4 Stop: 11/17/19 02:51 Cholecalciferol (Vitamin D3) 1,000 iu PO DAILY [facility] Stop: 11/17/19 08:59 Last Admin: 09/19/19 08:45 Dose: 1,000 iu Divalproex Sodium (Depakote Er) 250 mg PO Q12HR [facility]; Protocol Stop: 11/18/19 20:59 Docusate Sodium (Colace) 100 mg PO BID [facility] Stop: 11/17/19 08:59 Last Admin: 09/19/19 08:45 Dose: 100 mg Donepezil HCl (Aricept) 5 mg PO HS [facility] Stop: 11/17/19 20:59 Last Admin: 09/18/19 20:44 Dose: 5 mg Hydralazine HCl (Apresoline) 75 mg PO TID [facility] Stop: 11/17/19 08:59 Last Admin: 09/19/19 08:45 Dose: 75 mg Insulin Glargine (Lantus Insulin) 20 units SUBQ HS [facility] Stop: 11/17/19 20:59 Last Admin: 09/18/19 21:01 Dose: 20 units Insulin Human Lispro (Humalog Insulin Sliding Scale) 0 units SUBQ ACHS [facility]; Protocol Stop: 11/17/19 07:29 Last Admin: 09/19/19 11:52 Dose: 4 units Lorazepam (Ativan) 0.5 mg PO Q6HR PRN; Protocol PRN Reason: Anxiety Stop: 11/17/19 06:43 Memantine (Namenda) 5 mg PO BID [facility] Stop: 11/17/19 16:59 Last Admin: 09/19/19 08:45 Dose: 5 mg Metformin HCl (Glucophage) 1,000 mg PO BID [facility] Stop: 11/17/19 08:59 Last Admin: 09/19/19 08:45 Dose: 1,000 mg Simvastatin (Zocor) 40 mg PO HS [facility]; Protocol Stop: 11/17/19 20:59 Last Admin: 09/18/19 20:44 Dose: 40 mg Physical Exam: Patient needs close monitoring, remains very confused, irritable and acting out. General: weak, demented HEENT: NC/AT, PERRLA Neck: Supple, No JVD Lungs: CTAB Cardiovascular: RRR, Normal S1, Normal S2 Abdomen: soft, non-tender, non-distended Extremities: clear Neurological: disorganized, unable to follow command Internal Medicine Assmt/Plan - Assessment Assessment: Acute Psychosis. History of Diabetes. History of Dementia. - Plan Plan: Monitor vitals and Labs. Continue present meds as directed Accu-check daily, continue DM meds Monitor Diet/Nutritional Support Psych management as per Psych. Fall precaution Safety precaution Supportive Care Will Monitor patient and continue present care management. Nutritional Asmnt/Malnutr-PDOC - Dietary Evaluation Malnutrition Findings (Please click <Entered> for more info): see orders.
[2019-09-19] MEDS: Insulin Glargine 100 units/ml 10ml Vial SUBQ SCH (20:57)
--- NOTE | 2019-09-19 21:03 | Progress Notes ---
DATE: 09/19/2019 SUBJECTIVE: Case was discussed with staff of the patient, reviewed records. The patient continues to be very agitated, irritable, having to go from one room to the other, disrobing herself, intrusive, hard to redirect, unpredictable, impulsive, needing redirection. PLAN: I will be adding Depakote to her medication to decrease her agitation and [id number] behavior. She is demented, confused. She is sleeping well, eating well. No side effects with the medication, no sedation, no nausea. So, I will be initiating her on Depakote 250 mg extended release twice a day and we discussed side effects. We will continue the patient in group therapy, milieu therapy, adjust medication as needed. JOB# [id number]
[2019-09-20] MEDS: INSULIN LISPRO SLIDING SCALE 100 UNITS/ML UNIT SUBQ SCH ×5 (06:39→20:36)
--- NOTE | 2019-09-20 11:17 | Internal Medicine Prog Note ---
Internal Medicine Subjective - Subjective Service Date: 09/20/19 Patient seen and examined:: with staff Patient is:: awake, verbal, agitated, confused Patient Complaints of:: other (Hx of Dementia.) Per staff patient has:: no adverse event, no episodes of fall Internal Medicine Objective - Results Recent Labs: Laboratory Last Values POC Glucose 114 MG/DL (70 - 105) H 09/20/19 06:44 - Physical Exam Vitals and I&O: Vital Signs Temp 98.1 F 09/20/19 06:30 Pulse 70 09/20/19 09:22 Resp 19 09/20/19 06:30 BP 119/69 09/20/19 09:22 Pulse Ox 98 09/20/19 06:30 Intake & Output 09/19/19 09/20/19 09/20/19 18:59 06:59 18:59 Intake Total 1200 120 Balance 1200 120 Intake: Oral 1200 120 Other: # Voids 3 1 # Bowel Movements 1 0 Active Medications: Current Medications Acetaminophen (Tylenol) 650 mg PO Q4HR PRN PRN Reason: Pain (Mild) 1-3 Stop: 11/17/19 02:51 Acetaminophen (Tylenol) 650 mg PO Q4H PRN PRN Reason: Temperature Above 100.4 Stop: 11/17/19 02:51 Cholecalciferol (Vitamin D3) 1,000 iu PO DAILY [facility] Stop: 11/17/19 08:59 Last Admin: 09/20/19 09:21 Dose: 1,000 iu Docusate Sodium (Colace) 100 mg PO BID [facility] Stop: 11/17/19 08:59 Last Admin: 09/20/19 09:21 Dose: 100 mg Donepezil HCl (Aricept) 5 mg PO HS [facility] Stop: 11/17/19 20:59 Last Admin: 09/19/19 20:56 Dose: 5 mg Hydralazine HCl (Apresoline) 75 mg PO TID [facility] Stop: 11/17/19 08:59 Last Admin: 09/20/19 09:22 Dose: 75 mg Insulin Glargine (Lantus Insulin) [address] [facility] Stop: 11/17/19 20:59 Last Admin: 09/19/19 20:57 Dose: 20 units Insulin Human Lispro (Humalog Insulin Sliding Scale) 0 units SUBQ [facility]; Protocol Stop: 11/17/19 07:29 Last Admin: 09/20/19 06:39 Dose: Not Given Lorazepam (Ativan) 0.5 mg PO Q6HR PRN; Protocol PRN Reason: Anxiety Stop: 11/17/19 06:43 Memantine (Namenda) 5 mg PO BID [facility] Stop: 11/17/19 16:59 Last Admin: 09/20/19 09:21 Dose: 5 mg Metformin HCl (Glucophage) 1,000 mg PO BID [facility] Stop: 11/17/19 08:59 Last Admin: 09/20/19 09:21 Dose: 1,000 mg Simvastatin (Zocor) 40 mg PO HS [facility]; Protocol Stop: 11/17/19 20:59 Last Admin: 09/19/19 21:37 Dose: 40 mg Valproate Sodium (Depakene) 250 mg PO BID [facility]; Protocol Stop: 11/19/19 16:59 General: weak, demented HEENT: NC/AT, PERRLA Neck: Supple, No JVD Lungs: CTAB Cardiovascular: RRR, Normal S1, Normal S2 Abdomen: soft, non-tender, non-distended Extremities: clear Neurological: disorganized, unable to follow command Internal Medicine Assmt/Plan - Assessment Assessment: Acute Psychosis. History of Diabetes. History of Dementia. - Plan Plan: Monitor vitals and Labs. Continue present meds as directed Accu-check daily, continue DM meds Monitor Diet/Nutritional Support Psych management as per Psych. Fall precaution Safety precaution Supportive Care Will Monitor patient and continue present care management.
--- NOTE | 2019-09-20 16:01 | Progress Notes ---
DATE: 09/20/2019 Case was discussed with staff of the patient, reviewed records. The patient continues to be unpredictable, impulsive, disrobing, going to other patient's room. It is also hard for her to swallow the medications, so we will be changing Depakote to Depakene and so far she is on Namenda, Aricept, metformin, simvastatin, Calciferol. No side effects with the medication, no sedation or nausea. We will continue to work with the patient in group therapy, milieu therapy, and adjust the medication as needed. JOB# [id number]
[2019-09-20] MEDS: Insulin Glargine 100 units/ml 10ml Vial SUBQ SCH (20:37)
[2019-09-21] MEDS: INSULIN LISPRO SLIDING SCALE 100 UNITS/ML UNIT SUBQ SCH ×4 (06:48→21:45)
--- NOTE | 2019-09-21 10:40 | Internal Medicine Prog Note ---
Internal Medicine Subjective - Subjective Service Date: 09/21/19 Patient seen and examined:: with staff, chart reviewed Patient is:: awake, verbal, agitated, confused Patient Complaints of:: other (Hx of Dementia.) Per staff patient has:: no adverse event, no episodes of fall Internal Medicine Objective - Results Recent Labs: Laboratory Last Values POC Glucose 52 MG/DL (70 - 105) L 09/21/19 06:31 - Physical Exam Vitals and I&O: Vital Signs Temp 97.1 F 09/21/19 06:38 Pulse 72 09/21/19 09:24 Resp 19 09/21/19 06:38 BP 106/69 09/21/19 09:24 Pulse Ox 97 09/21/19 06:38 Intake & Output 09/20/19 09/21/19 09/21/19 18:59 06:59 18:59 Intake Total 850 120 Balance 850 120 Intake: Oral 850 120 Other: # Voids 1 # Bowel Movements 0 Active Medications: Current Medications Acetaminophen (Tylenol) 650 mg PO Q4HR PRN PRN Reason: Pain (Mild) 1-3 Stop: 11/17/19 02:51 Acetaminophen (Tylenol) 650 mg PO Q4H PRN PRN Reason: Temperature Above 100.4 Stop: 11/17/19 02:51 Cholecalciferol (Vitamin D3) 1,000 iu PO DAILY [facility] Stop: 11/17/19 08:59 Last Admin: 09/21/19 09:24 Dose: 1,000 iu Docusate Sodium (Colace) 100 mg PO BID [facility] Stop: 11/17/19 08:59 Last Admin: 09/21/19 09:25 Dose: 100 mg Donepezil HCl (Aricept) 5 mg PO HS [facility] Stop: 11/17/19 20:59 Last Admin: 09/20/19 20:35 Dose: 5 mg Hydralazine HCl (Apresoline) 75 mg PO TID [facility] Stop: 11/17/19 08:59 Last Admin: 09/21/19 09:24 Dose: 75 mg Insulin Glargine (Lantus Insulin) 20 units SUBQ [facility] Stop: 11/17/19 20:59 Last Admin: 09/20/19 20:37 Dose: 20 units Insulin Human Lispro (Humalog Insulin Sliding Scale) 0 units SUBQ [facility]; Protocol Stop: 11/17/19 07:29 Last Admin: 09/21/19 06:48 Dose: Not Given Lorazepam (Ativan) 0.5 mg PO Q6HR PRN; Protocol PRN Reason: Anxiety Stop: 11/17/19 06:43 Last Admin: 09/21/19 09:25 Dose: 0.5 mg Memantine (Namenda) 5 mg PO BID [facility] Stop: 11/17/19 16:59 Last Admin: 09/21/19 09:24 Dose: 5 mg Metformin HCl (Glucophage) 1,000 mg PO BID [facility] Stop: 11/17/19 08:59 Last Admin: 09/21/19 09:28 Dose: Not Given Simvastatin (Zocor) 40 mg PO HS [facility]; Protocol Stop: 11/17/19 20:59 Last Admin: 09/20/19 20:38 Dose: 40 mg Valproate Sodium (Depakene) 250 mg PO BID [facility]; Protocol Stop: 11/19/19 16:59 Last Admin: 09/21/19 09:26 Dose: 250 mg Physical Exam: Patient needs close monitoring, patient has been intrusive going to other patient's rooms, still very dis-oriented. General: weak, demented HEENT: NC/AT, PERRLA Neck: Supple, No JVD Lungs: CTAB Cardiovascular: RRR, Normal S1, Normal S2 Abdomen: soft, non-tender, non-distended Extremities: clear Neurological: disorganized, unable to follow command Internal Medicine Assmt/Plan - Assessment Assessment: Acute Psychosis. History of Diabetes. History of Dementia. - Plan Plan: Monitor vitals and Labs. Continue present meds as directed Accu-check daily, continue DM meds Monitor Diet/Nutritional Support Psych management as per Psych. Fall precaution Safety precaution Supportive Care Will Monitor patient and continue present care management. Nutritional Asmnt/Malnutr-PDOC - Dietary Evaluation Malnutrition Findings (Please click <Entered> for more info): please see orders.
--- NOTE | 2019-09-21 13:53 | Internal Medicine Prog Note ---
Internal Medicine Subjective - Subjective Service Date: 09/21/19 Patient is:: awake, verbal, agitated, confused Patient Complaints of:: other (Hx of Dementia.) Per staff patient has:: no adverse event, no episodes of fall Internal Medicine Objective - Results Recent Labs: Laboratory Last Values POC Glucose 202 MG/DL (70 - 105) H 09/21/19 11:28 - Physical Exam Vitals and I&O: Vital Signs Temp 97.1 F 09/21/19 06:38 Pulse 72 09/21/19 09:24 Resp 20 09/21/19 10:54 BP 106/69 09/21/19 09:24 Pulse Ox 97 09/21/19 06:38 Intake & Output 09/20/19 09/21/19 09/21/19 18:59 06:59 18:59 Intake Total 850 120 Balance 850 120 Intake: Oral 850 120 Other: # Voids 1 # Bowel Movements 0 Active Medications: Current Medications Acetaminophen (Tylenol) 650 mg PO Q4HR PRN PRN Reason: Pain (Mild) 1-3 Stop: 11/17/19 02:51 Acetaminophen (Tylenol) 650 mg PO Q4H PRN PRN Reason: Temperature Above 100.4 Stop: 11/17/19 02:51 Cholecalciferol (Vitamin D3) 1,000 iu PO DAILY [facility] Stop: 11/17/19 08:59 Last Admin: 09/21/19 09:24 Dose: 1,000 iu Docusate Sodium (Colace) 100 mg PO BID [facility] Stop: 11/17/19 08:59 Last Admin: 09/21/19 09:25 Dose: 100 mg Donepezil HCl (Aricept) 5 mg PO [facility] Stop: 11/17/19 20:59 Last Admin: 09/20/19 20:35 Dose: 5 mg Hydralazine HCl (Apresoline) 75 mg PO TID [facility] Stop: 11/17/19 08:59 Last Admin: 09/21/19 09:24 Dose: 75 mg Insulin Glargine (Lantus Insulin) 20 units SUBQ [facility] Stop: 11/17/19 20:59 Last Admin: 09/20/19 20:37 Dose: 20 units Insulin Human Lispro (Humalog Insulin Sliding Scale) 0 units SUBQ [facility]; Protocol Stop: 11/17/19 07:29 Last Admin: 09/21/19 12:41 Dose: Not Given Lorazepam (Ativan) 0.5 mg PO Q6HR PRN; Protocol PRN Reason: Anxiety Stop: 11/17/19 06:43 Last Admin: 09/21/19 09:25 Dose: 0.5 mg Memantine (Namenda) 5 mg PO BID [facility] Stop: 11/17/19 16:59 Last Admin: 09/21/19 09:24 Dose: 5 mg Metformin HCl (Glucophage) 1,000 mg PO BID [facility] Stop: 11/17/19 08:59 Last Admin: 09/21/19 12:40 Dose: 1,000 mg Risperidone (Risperdal) 0.5 mg PO BID [facility]; Protocol Stop: 11/20/19 16:59 Simvastatin (Zocor) 40 mg PO HS [facility]; Protocol Stop: 11/17/19 20:59 Last Admin: 09/20/19 20:38 Dose: 40 mg Valproate Sodium (Depakene) 250 mg PO BID [facility]; Protocol Stop: 11/19/19 16:59 Last Admin: 09/21/19 09:26 Dose: 250 mg General: weak, demented HEENT: NC/AT, PERRLA Neck: Supple, No JVD Lungs: CTAB Cardiovascular: RRR, Normal S1, Normal S2 Abdomen: soft, non-tender, non-distended Extremities: clear Neurological: disorganized, unable to follow command Internal Medicine Assmt/Plan - Assessment Assessment: Acute Psychosis. History of Diabetes. History of Dementia. - Plan Plan: Monitor vitals and Labs. Continue present meds as directed Accu-check daily, continue DM meds Monitor Diet/Nutritional Support Psych management as per Psych. Fall precaution Safety precaution Supportive Care Will Monitor patient and continue present care management.
[2019-09-21] MEDS: Insulin Glargine 100 units/ml 10ml Vial SUBQ SCH (21:41)
--- NOTE | 2019-09-21 22:16 | Progress Notes ---
DATE: 09/21/2019 Case was discussed with staff of the patient, reviewed records. The patient tolerated the Depakote. Continues to be confused, walking aimlessly on the unit, unable to make safe plan for self-care or participate in a meaningful conversation. She is sleeping better, eating better. No side effects with the medication, no sedation, no nausea. We will continue outpatient group therapy, milieu therapy, and adjust the medication as needed. JOB# [id number]
[2019-09-22] MEDS: INSULIN LISPRO SLIDING SCALE 100 UNITS/ML UNIT SUBQ SCH ×4 (08:40→21:31)
[2019-09-22] MEDS ORDERED: Haloperidol Lactate 5 mg/mL 1mL Vial IM ONE (15:03)
[2019-09-22] MEDS ORDERED: Haloperidol Lactate 5 mg/mL 1mL Vial ONE (15:10)
[2019-09-22] MEDS: Insulin Glargine 100 units/ml 10ml Vial SUBQ SCH (21:31)
--- NOTE | 2019-09-23 06:19 | Psych Progress Note ---
Psych Progress Note - Intro Date of Progress Note: 09/22/19 - Assessment Assessment: Patient interviewed, case discussed with staff, chart and records were reviewed. Patient is disorganized, confused, pacing the hallways going into other patient's rooms and causing disruption. Has unsteady gait and high fall risk, easily agitated and does not follow redirection. On interview does not make any eye contact, remains mute. Later in day, patient became very agitated and restless and needed emergent IM medications which were effective with no side effects. - Vitals, I&O Vitals: Vital Signs - 24 hr 09/22/19 09/22/19 09/22/19 08:41 13:13 14:42 Temp HR 60 73 RR 18 BP 123/57 118/53 O2 Sat % 09/22/19 09/22/19 09/22/19 14:48 20:57 21:01 Temp 97.9 F 98.7 F HR 73 80 80 RR 18 20 BP 118/53 122/69 122/69 O2 Sat % 98 99 - Objective Psych General Appearance: Report: Disheveled Psych Behavior: Report: Alert, Uncooperative, Restless, Agitated, Pacing Psych Speech: Report: Mumbled Psych Mood: Report: Irritable, Labile Psych Affect: Report: Labile Psych Thought Process: Report: Loose Associations, Thought Block Psych Cognition: Report: Confused Psych Insight: Report: Impaired Psych Judgement: Report: Impaired - Plan Plan: will obtain valproic acid level and consider uptitration of depakote. will increase Risperdal to 0.5mg po TID. will continue observe behaviors and make further adjustements as indicated. no side effects noted. - Review of Relevant Data Review of Relevant Data: I have reviewed the following items and time ravindra (where applicable) has been applied. - Medications Current Medications: Current Medications Acetaminophen (Tylenol) 650 mg PO Q4HR PRN PRN Reason: Pain (Mild) 1-3 Stop: 11/17/19 02:51 Acetaminophen (Tylenol) 650 mg PO Q4H PRN PRN Reason: Temperature Above 100.4 Stop: 11/17/19 02:51 Cholecalciferol (Vitamin D3) 1,000 iu PO DAILY [facility] Stop: 11/17/19 08:59 Last Admin: 09/22/19 08:42 Dose: 1,000 iu Docusate Sodium (Colace) 100 mg PO BID [facility] Stop: 11/17/19 08:59 Last Admin: 09/22/19 16:55 Dose: 100 mg Donepezil HCl (Aricept) 5 mg PO HS [facility] Stop: 11/17/19 20:59 Last Admin: 09/22/19 20:57 Dose: 5 mg Hydralazine HCl (Apresoline) 75 mg PO TID [facility] Stop: 11/17/19 08:59 Last Admin: 09/22/19 20:57 Dose: 75 mg Insulin Glargine (Lantus Insulin) 20 units SUBQ HS [facility] Stop: 11/17/19 20:59 Last Admin: 09/22/19 21:31 Dose: 20 units Insulin Human Lispro (Humalog Insulin Sliding Scale) 0 units SUBQ [facility]; Protocol Stop: 11/17/19 07:29 Last Admin: 09/22/19 21:31 Dose: 2 units Lorazepam (Ativan) 0.5 mg PO Q6HR PRN; Protocol PRN Reason: Anxiety Stop: 11/17/19 06:43 Last Admin: 09/22/19 13:29 Dose: 0.5 mg Memantine (Namenda) 5 mg PO BID [facility] Stop: 11/17/19 16:59 Last Admin: 09/22/19 16:55 Dose: 5 mg Metformin HCl (Glucophage) 1,000 mg PO BID [facility] Stop: 11/17/19 08:59 Last Admin: 09/22/19 16:54 Dose: 1,000 mg Risperidone (Risperdal) 0.5 mg PO TID [facility]; Protocol Stop: 11/21/19 08:59 Last Admin: 09/22/19 20:57 Dose: 0.5 mg Simvastatin (Zocor) 40 mg PO HS [facility]; Protocol Stop: 11/17/19 20:59 Last Admin: 09/22/19 20:57 Dose: 40 mg Valproate Sodium (Depakene) 250 mg PO BID [facility]; Protocol Stop: 11/19/19 16:59 Last Admin: 09/22/19 16:54 Dose: 250 mg Zolpidem Tartrate (Ambien) 5 mg PO HS PRN PRN Reason: Insomnia Stop: 11/20/19 20:45 Last Admin: 09/21/19 21:42 Dose: 5 mg
[2019-09-23] MEDS: INSULIN LISPRO SLIDING SCALE 100 UNITS/ML UNIT SUBQ SCH ×4 (06:50→22:11)
--- NOTE | 2019-09-23 20:38 | Internal Medicine Prog Note ---
Internal Medicine Subjective - Subjective Service Date: 09/23/19 Patient is:: awake, verbal, agitated, confused Patient Complaints of:: other (Hx of Dementia.) Per staff patient has:: no adverse event, no episodes of fall Internal Medicine Objective - Results Recent Labs: Laboratory Last Values POC Glucose 192 MG/DL (70 - 105) H 09/23/19 16:48 - Physical Exam Vitals and I&O: Vital Signs Temp 97.8 F 09/23/19 20:02 Pulse 66 09/23/19 20:02 Resp 20 09/23/19 20:02 BP 156/57 09/23/19 20:02 Pulse Ox 96 09/23/19 20:02 Intake & Output 09/23/19 09/23/19 09/24/19 06:59 18:59 06:59 Intake Total 240 900 240 Balance 240 900 240 Intake: Oral 240 900 240 Other: # Voids 2 3 1 # Bowel Movements 1 Active Medications: Current Medications Acetaminophen (Tylenol) 650 mg PO Q4HR PRN PRN Reason: Pain (Mild) 1-3 Stop: 11/17/19 02:51 Acetaminophen (Tylenol) 650 mg PO Q4H PRN PRN Reason: Temperature Above 100.4 Stop: 11/17/19 02:51 Cholecalciferol (Vitamin D3) 1,000 iu PO DAILY [facility] Stop: 11/17/19 08:59 Last Admin: 09/23/19 08:43 Dose: 1,000 iu Docusate Sodium (Colace) 100 mg PO BID [facility] Stop: 11/17/19 08:59 Last Admin: 09/23/19 17:09 Dose: 100 mg Donepezil HCl (Aricept) 5 mg PO [facility] Stop: 11/17/19 20:59 Last Admin: 09/22/19 20:57 Dose: 5 mg Hydralazine HCl (Apresoline) 75 mg PO TID [facility] Stop: 11/17/19 08:59 Last Admin: 09/23/19 14:39 Dose: Not Given Insulin Glargine (Lantus Insulin) 20 units SUBQ [facility] Stop: 11/17/19 20:59 Last Admin: 09/22/19 21:31 Dose: 20 units Insulin Human Lispro (Humalog Insulin Sliding Scale) 0 units SUBQ [facility]; Protocol Stop: 11/17/19 07:29 Last Admin: 09/23/19 17:10 Dose: 2 units Lorazepam (Ativan) 0.5 mg PO Q6HR PRN; Protocol PRN Reason: Anxiety Stop: 11/17/19 06:43 Last Admin: 09/22/19 13:29 Dose: 0.5 mg Memantine (Namenda) 5 mg PO BID [facility] Stop: 11/17/19 16:59 Last Admin: 09/23/19 17:09 Dose: 5 mg Metformin HCl (Glucophage) 1,000 mg PO BID [facility] Stop: 11/17/19 08:59 Last Admin: 09/23/19 17:09 Dose: 1,000 mg Risperidone (Risperdal) 0.5 mg PO TID [facility]; Protocol Stop: 11/21/19 08:59 Last Admin: 09/23/19 14:48 Dose: 0.5 mg Simvastatin (Zocor) 40 mg PO HS [facility]; Protocol Stop: 11/17/19 20:59 Last Admin: 09/22/19 20:57 Dose: 40 mg Valproate Sodium (Depakene) 250 mg PO BID [facility]; Protocol Stop: 11/19/19 16:59 Last Admin: 09/23/19 17:10 Dose: 250 mg Zolpidem Tartrate (Ambien) 5 mg PO HS PRN PRN Reason: Insomnia Stop: 11/20/19 20:45 Last Admin: 09/21/19 21:42 Dose: 5 mg General: weak, demented, NAD HEENT: NC/AT, PERRLA Neck: Supple, No JVD Lungs: CTAB Cardiovascular: RRR, Normal S1, Normal S2 Abdomen: soft, non-tender, non-distended Extremities: clear Neurological: disorganized, unable to follow command Internal Medicine Assmt/Plan - Assessment Assessment: Acute Psychosis. History of Diabetes. History of Dementia. - Plan Plan: Continue current managements Monitor VS Monitor Labs Psych management per Psych Pain managment as needed. Monitor nutritional needs. Fall Precaution Continue collaboration with interdisciplinary team. Nutritional Asmnt/Malnutr-PDOC - Dietary Evaluation Malnutrition Findings (Please click <Entered> for more info): Nutritional Asmnt/Malnutrition Start: 09/22/19 11: 11 Text: Status: Complete Freq: Protocol: Document 09/22/19 11:15 MMULHERN (Rec: 09/22/19 11:37 MILAD ROBERT- [email or web address]) Nutritional Asmnt/Malnutrition Patient General Information Nutritional Screening Moderate Risk Diagnosis Psychosis Pertinent Medical Hx/Surgical Hx Paranoid Schizophrenia, Dysphagia Oropharyngeal Phase, Anxiety Disorder, Type 2 Diabetes Mellitus Without Unspecified Complications, Cardiomegaly, Essential ( Primary) Hypertension, Cardiac Pacemaker, Hyperlipidemia, Dementia, Psychosis, Major Depressive Disorder, Peripheral Vascular Disease, Contracture of Muscle Right Hand Subjective Information PO intake ~50% of meals on average. Tolerating current diet order. Current Diet Order/ Nutrition Support mechanical soft, no concentrated sweets, 60 gm CCHO, no added sodium Patient / S.O Not Indicated Pertinent Medications vitamin D, colace, lantus, humalog, metformin Pertinent Labs Glucose 52-309 Nutritional Hx/Data Height 5 ft 4 in Height (Calculated Centimeters) 162.6 Current Weight (lbs) 126 lb Weight (Calculated Kilograms) 57.2 Weight (Calculated Grams) 43500.6 [place] Body Weight 120 % [place] Body Weight 105 Body Mass Index (BMI) 21.6 Recent Weight Change No Weight Status Approriate GI Symptoms GI Symptoms None Last BM 09/21 x 1 Difficult in: None Food Allergies No Cultural/Ethnic/Alevism Belief none indicated Usual diet at home unknown Skin Integrity/Comment: Carlos 20, multiple scratch ravindra to upper back both hands dorsal aspect Current %PO Poor (25-49%) Estimated Nutritional Goals BEE in Kcals: Using Current wt Calories/Kcals/Kg 57.2kg CBW 25-30 kcal/kg Kcals Calculated ~9418-9109 kcal/day Protein: Using Current wt Protein g/k.8-1 gm/kg Protein Calculated ~45-55 gm/day Fluid: ml ~8092-8448 ml/day (1 ml/kcal) Nutritional Problem 2. Problem Problem Altered nutrition related lab values related ot Etiology hypo and hyperglycemia aeb Signs/Symptoms: Glucose 52-309 1. Problem Problem Inadequate oral intake related to Etiology possible poor appetite aeb Signs/Symptoms: PO intake 0-100% with average intake ~50%. Intervention/Recommendation Comments 1. Continue current diet as tolerated by patient. 2. Encourage oral intake and provide assistance with meals. 3. MD to continue to avoid insulin regimen for optimal glycemic control. Expected Outcomes/Goals Expected Outcomes/Goals Adequate nutrition to meet >75 % estimated needs, improved labs, skin remains intact, weight maintenance or trend toward ideal body weight. F/U MR 3/-5
[2019-09-23] MEDS: Insulin Glargine 100 units/ml 10ml Vial SUBQ SCH (22:14)
--- NOTE | 2019-09-24 01:34 | Progress Notes ---
DATE: 09/22/2019 SUBJECTIVE: The patient was seen in the room. The patient is very guarded, poor impulse control, very confused and needs a lot of redirection. Episodes of agitation. Otherwise, the patient appears to be in no acute distress. OBJECTIVE: VITAL SIGNS: Temperature 97.6, heart rate 60, blood pressure 132/57, respirations 18, 99% on room air. HEENT: Head is atraumatic and normocephalic. Eyes: Bilateral conjunctivae are clear. Bilateral pupils equal, round, reactive. NECK: Supple. No JVD. CARDIOVASCULAR: S1, S2, without murmur. PULMONARY: Clear to auscultation. GASTROINTESTINAL: Soft and nontender without guarding. Positive bowel sounds. MUSCULOSKELETAL: No clubbing. No cyanosis noted. ASSESSMENT: 1. Dementia. 2. Psychosis. 3. Hypertension. 4. Diabetes. PLAN: We will continue to keep the patient in inpatient psychiatric unit. We will follow up with a psychiatrist to monitor the patient's condition and behavior. We will put the patient on fall precautions. Treatment plans were discussed with the patient's nurse. Treatment plans were discussed with Dr. Stroud. JOB# [id number]
[2019-09-24] MEDS: INSULIN LISPRO SLIDING SCALE 100 UNITS/ML UNIT SUBQ SCH ×4 (06:36→21:05)
--- NOTE | 2019-09-24 06:38 | Psych Progress Note ---
Psych Progress Note - Intro Date of Progress Note: 09/23/19 - Assessment Assessment: Patient interviewed, case discussed with staff, chart and records were reviewed. Patient is disorganized, confused, pacing the hallways going into other patient's rooms and causing disruption. Has unsteady gait and high fall risk, easily agitated and does not follow redirection. On interview does not make any eye contact, remains mute. No changes from dose increase of Risperdal Pending VPA level was drawn this morning.. - Vitals, I&O Vitals: Vital Signs - 24 hr 09/23/19 09/23/19 09/23/19 08:00 08:43 14:39 Temp HR 68 68 77 RR 18 BP 135/59 135/59 116/56 O2 Sat % 09/23/19 09/23/19 09/24/19 20:02 21:56 06:05 Temp 97.8 F 98.1 F HR 66 66 61 RR 20 19 BP 156/57 156/57 146/73 O2 Sat % 96 97 - Objective Psych General Appearance: Report: Disheveled Psych Behavior: Report: Alert, Uncooperative, Restless, Agitated, Pacing Psych Speech: Report: Mumbled Psych Mood: Report: Irritable, Labile Psych Affect: Report: Labile Psych Thought Process: Report: Loose Associations, Thought Block Psych Cognition: Report: Confused Psych Insight: Report: Impaired Psych Judgement: Report: Impaired - Plan Plan: cont meds, pending VPA level. will continue observe behaviors and make further adjustements as indicated. no side effects noted. - Review of Relevant Data Review of Relevant Data: I have reviewed the following items and time ravindra (where applicable) has been applied. - Medications Current Medications: Current Medications Acetaminophen (Tylenol) 650 mg PO Q4HR PRN PRN Reason: Pain (Mild) 1-3 Stop: 11/17/19 02:51 Acetaminophen (Tylenol) 650 mg PO Q4H PRN PRN Reason: Temperature Above 100.4 Stop: 11/17/19 02:51 Cholecalciferol (Vitamin D3) 1,000 iu PO DAILY [facility] Stop: 11/17/19 08:59 Last Admin: 09/23/19 08:43 Dose: 1,000 iu Docusate Sodium (Colace) 100 mg PO BID [facility] Stop: 11/17/19 08:59 Last Admin: 09/23/19 17:09 Dose: 100 mg Donepezil HCl (Aricept) 5 mg PO HS [facility] Stop: 11/17/19 20:59 Last Admin: 09/23/19 21:56 Dose: 5 mg Hydralazine HCl (Apresoline) 75 mg PO TID [facility] Stop: 11/17/19 08:59 Last Admin: 09/23/19 21:56 Dose: 75 mg Insulin Glargine (Lantus Insulin) 20 units SUBQ HS [facility] Stop: 11/17/19 20:59 Last Admin: 09/23/19 22:14 Dose: 20 units Insulin Human Lispro (Humalog Insulin Sliding Scale) 0 units SUBQ [facility]; Protocol Stop: 11/17/19 07:29 Last Admin: 09/24/19 06:36 Dose: Not Given Lorazepam (Ativan) 0.5 mg PO Q6HR PRN; Protocol PRN Reason: Anxiety Stop: 11/17/19 06:43 Last Admin: 09/22/19 13:29 Dose: 0.5 mg Memantine (Namenda) 5 mg PO BID [facility] Stop: 11/17/19 16:59 Last Admin: 09/23/19 17:09 Dose: 5 mg Metformin HCl (Glucophage) 1,000 mg PO BID [facility] Stop: 11/17/19 08:59 Last Admin: 09/23/19 17:09 Dose: 1,000 mg Risperidone (Risperdal) 0.5 mg PO TID [facility]; Protocol Stop: 11/21/19 08:59 Last Admin: 09/23/19 21:56 Dose: 0.5 mg Simvastatin (Zocor) 40 mg PO HS [facility]; Protocol Stop: 11/17/19 20:59 Last Admin: 09/23/19 21:57 Dose: 40 mg Valproate Sodium (Depakene) 250 mg PO BID [facility]; Protocol Stop: 11/19/19 16:59 Last Admin: 09/23/19 17:10 Dose: 250 mg Zolpidem Tartrate (Ambien) 5 mg PO HS PRN PRN Reason: Insomnia Stop: 11/20/19 20:45 Last Admin: 09/21/19 21:42 Dose: 5 mg
--- NOTE | 2019-09-24 09:03 | Internal Medicine Prog Note ---
Internal Medicine Subjective - Subjective Patient is:: awake (0), verbal, agitated, confused Patient Complaints of:: other (Hx of Dementia.) Per staff patient has:: no adverse event, no episodes of fall Internal Medicine Objective - Results Recent Labs: Laboratory Last Values POC Glucose 124 MG/DL (70 - 105) H 09/24/19 06:31 - Physical Exam Vitals and I&O: Vital Signs Temp 98.1 F 09/24/19 06:05 Pulse 61 09/24/19 06:05 Resp 19 09/24/19 06:05 BP 146/73 09/24/19 06:05 Pulse Ox 97 09/24/19 06:05 Intake & Output 09/23/19 09/24/19 09/24/19 18:59 06:59 18:59 Intake Total 900 360 Balance 900 360 Intake: Oral 900 360 Other: # Voids 3 1 # Bowel Movements 1 0 Active Medications: Current Medications Acetaminophen (Tylenol) 650 mg PO Q4HR PRN PRN Reason: Pain (Mild) 1-3 Stop: 11/17/19 02:51 Acetaminophen (Tylenol) 650 mg PO Q4H PRN PRN Reason: Temperature Above 100.4 Stop: 11/17/19 02:51 Cholecalciferol (Vitamin D3) 1,000 iu PO DAILY [facility] Stop: 11/17/19 08:59 Last Admin: 09/23/19 08:43 Dose: 1,000 iu Docusate Sodium (Colace) 100 mg PO BID [facility] Stop: 11/17/19 08:59 Last Admin: 09/23/19 17:09 Dose: 100 mg Donepezil HCl (Aricept) 5 mg PO [facility] Stop: 11/17/19 20:59 Last Admin: 09/23/19 21:56 Dose: 5 mg Hydralazine HCl (Apresoline) 75 mg PO TID [facility] Stop: 11/17/19 08:59 Last Admin: 09/23/19 21:56 Dose: 75 mg Insulin Glargine (Lantus Insulin) 20 units SUBQ [facility] Stop: 11/17/19 20:59 Last Admin: 09/23/19 22:14 Dose: 20 units Insulin Human Lispro (Humalog Insulin Sliding Scale) 0 units SUBQ [facility]; Protocol Stop: 11/17/19 07:29 Last Admin: 09/24/19 06:36 Dose: Not Given Lorazepam (Ativan) 0.5 mg PO Q6HR PRN; Protocol PRN Reason: Anxiety Stop: 11/17/19 06:43 Last Admin: 09/22/19 13:29 Dose: 0.5 mg Memantine (Namenda) 5 mg PO BID [facility] Stop: 11/17/19 16:59 Last Admin: 09/23/19 17:09 Dose: 5 mg Metformin HCl (Glucophage) 1,000 mg PO BID [facility] Stop: 11/17/19 08:59 Last Admin: 09/23/19 17:09 Dose: 1,000 mg Risperidone (Risperdal) 0.5 mg PO TID [facility]; Protocol Stop: 11/21/19 08:59 Last Admin: 09/23/19 21:56 Dose: 0.5 mg Simvastatin (Zocor) 40 mg PO HS [facility]; Protocol Stop: 11/17/19 20:59 Last Admin: 09/23/19 21:57 Dose: 40 mg Valproate Sodium (Depakene) 250 mg PO BID [facility]; Protocol Stop: 11/19/19 16:59 Last Admin: 09/23/19 17:10 Dose: 250 mg Zolpidem Tartrate (Ambien) 5 mg PO HS PRN PRN Reason: Insomnia Stop: 11/20/19 20:45 Last Admin: 09/21/19 21:42 Dose: 5 mg Physical Exam: Patient needs close monitoring, patient has abnormal gait, very confused and weak. General: weak, demented, NAD HEENT: NC/AT, PERRLA Neck: Supple, No JVD Lungs: CTAB Cardiovascular: RRR, Normal S1, Normal S2 Abdomen: soft, non-tender, non-distended Extremities: clear Neurological: disorganized, unable to follow command Internal Medicine Assmt/Plan - Assessment Assessment: Acute Psychosis. History of Diabetes. History of Dementia. - Plan Plan: Monitor vitals and Labs. Continue present meds as directed Accu-check daily, continue DM meds Monitor Diet/Nutritional Support Psych management as per Psych. Fall precaution Safety precaution Supportive Care Will Monitor patient and continue present care management. Nutritional Asmnt/Malnutr-PDOC - Dietary Evaluation Malnutrition Findings (Please click <Entered> for more info): Nutritional Asmnt/Malnutrition Start: 09/22/19 11: 11 Text: Status: Complete Freq: Protocol: Document 09/22/19 11:15 MILAD (Rec: 09/22/19 11:37 MILAD YESICA- [email or web address]) Nutritional Asmnt/Malnutrition Patient General Information Nutritional Screening Moderate Risk Diagnosis Psychosis Pertinent Medical Hx/Surgical Hx Paranoid Schizophrenia, Dysphagia Oropharyngeal Phase, Anxiety Disorder, Type 2 Diabetes Mellitus Without Unspecified Complications, Cardiomegaly, Essential ( Primary) Hypertension, Cardiac Pacemaker, Hyperlipidemia, Dementia, Psychosis, Major Depressive Disorder, Peripheral Vascular Disease, Contracture of Muscle Right Hand Subjective Information PO intake ~50% of meals on average. Tolerating current diet order. Current Diet Order/ Nutrition Support mechanical soft, no concentrated sweets, 60 gm CCHO, no added sodium Patient / S.O Not Indicated Pertinent Medications vitamin D, colace, lantus, humalog, metformin Pertinent Labs Glucose 52-309 Nutritional Hx/Data Height 1.63 m Height (Calculated Centimeters) 162.6 Current Weight (lbs) 57.153 kg Weight (Calculated Kilograms) 57.2 Weight (Calculated Grams) 74960.6 [place] Body Weight 120 % [place] Body Weight 105 Body Mass Index (BMI) 21.6 Recent Weight Change No Weight Status Approriate GI Symptoms GI Symptoms None Last BM 09/21 x 1 Difficult in: None Food Allergies No Cultural/Ethnic/Yazidi Belief none indicated Usual diet at home unknown Skin Integrity/Comment: Carlos 20, multiple scratch ravindra to upper back both hands dorsal aspect Current %PO Poor (25-49%) Estimated Nutritional Goals BEE in Kcals: Using Current wt Calories/Kcals/Kg 57.2kg CBW 25-30 kcal/kg Kcals Calculated ~0610-8472 kcal/day Protein: Using Current wt Protein g/k.8-1 gm/kg Protein Calculated ~45-55 gm/day Fluid: ml ~1832-4975 ml/day (1 ml/kcal) Nutritional Problem 2. Problem Problem Altered nutrition related lab values related ot Etiology hypo and hyperglycemia aeb Signs/Symptoms: Glucose 52-309 1. Problem Problem Inadequate oral intake related to Etiology possible poor appetite aeb Signs/Symptoms: PO intake 0-100% with average intake ~50%. Intervention/Recommendation Comments 1. Continue current diet as tolerated by patient. 2. Encourage oral intake and provide assistance with meals. 3. MD to continue to avoid insulin regimen for optimal glycemic control. Expected Outcomes/Goals Expected Outcomes/Goals Adequate nutrition to meet >75 % estimated needs, improved labs, skin remains intact, weight maintenance or trend toward ideal body weight. F/U MR 3/3-5
--- NOTE | 2019-09-24 18:27 | Progress Notes ---
DATE: 09/24/2019 Case was discussed with staff of the patient, reviewed records. The patient continues to be going to other patient's room; however, she is not disrobing. She continues to be confused, walking aimlessly on the unit, unable to participate in a meaningful conversation. Continues to be disorganized, easily agitated, unable to make safe plan for self-care. No side effects with the medication, no sedation, no nausea, no extrapyramidal symptoms. The Risperdal was increased 2.5 mg 3 times [address] Keller 2 days ago. She is on Depakote 250 mg twice a day with no side effects, no sedation, no nausea, no extrapyramidal symptoms. We will continue outpatient group therapy, milieu therapy, adjust medication as needed. JOB# [id number]
[2019-09-24] MEDS: Insulin Glargine 100 units/ml 10ml Vial SUBQ SCH (21:04)
[2019-09-25] MEDS: INSULIN LISPRO SLIDING SCALE 100 UNITS/ML UNIT SUBQ SCH ×4 (07:28→21:08)
--- NOTE | 2019-09-25 13:51 | Internal Medicine Prog Note ---
Internal Medicine Subjective - Subjective Service Date: 09/25/19 Patient is:: awake (0), verbal, agitated, confused Patient Complaints of:: other (Hx of Dementia.) Per staff patient has:: no adverse event, no episodes of fall Internal Medicine Objective - Results Recent Labs: Laboratory Last Values POC Glucose 337 MG/DL (70 - 105) H 09/25/19 11:21 - Physical Exam Vitals and I&O: Vital Signs Temp 98 F 09/25/19 06:52 Pulse 72 09/25/19 09:16 Resp 19 09/25/19 06:52 BP 144/71 09/25/19 09:16 Pulse Ox 99 09/25/19 06:52 Intake & Output 09/24/19 09/25/19 09/25/19 18:59 06:59 18:59 Intake Total 900 240 Balance 900 240 Intake: Oral 900 240 Other: # Voids 3 3 # Bowel Movements 0 0 Active Medications: Current Medications Acetaminophen (Tylenol) 650 mg PO Q4HR PRN PRN Reason: Pain (Mild) 1-3 Stop: 11/17/19 02:51 Acetaminophen (Tylenol) 650 mg PO Q4H PRN PRN Reason: Temperature Above 100.4 Stop: 11/17/19 02:51 Cholecalciferol (Vitamin D3) 1,000 iu PO DAILY [facility] Stop: 11/17/19 08:59 Last Admin: 09/25/19 09:18 Dose: 1,000 iu Docusate Sodium (Colace) 100 mg PO BID [facility] Stop: 11/17/19 08:59 Last Admin: 09/25/19 09:21 Dose: 100 mg Donepezil HCl (Aricept) 5 mg PO [facility] Stop: 11/17/19 20:59 Last Admin: 09/24/19 21:02 Dose: 5 mg Hydralazine HCl (Apresoline) 75 mg PO TID [facility] Stop: 11/17/19 08:59 Last Admin: 09/25/19 09:16 Dose: 75 mg Insulin Glargine (Lantus Insulin) 20 units SUBQ [facility] Stop: 11/17/19 20:59 Last Admin: 09/24/19 21:04 Dose: 20 units Insulin Human Lispro (Humalog Insulin Sliding Scale) 0 units SUBQ [facility]; Protocol Stop: 11/17/19 07:29 Last Admin: 09/25/19 12:26 Dose: 8 units Lorazepam (Ativan) 0.5 mg PO Q6H PRN; Protocol PRN Reason: Anxiety Stop: 11/17/19 06:43 Memantine (Namenda) 5 mg PO BID [facility] Stop: 11/17/19 16:59 Last Admin: 09/25/19 09:19 Dose: 5 mg Metformin HCl (Glucophage) 1,000 mg PO BID [facility] Stop: 11/17/19 08:59 Last Admin: 09/25/19 09:13 Dose: 1,000 mg Risperidone (Risperdal) 1 mg PO BID [facility]; Protocol Stop: 11/24/19 16:59 Simvastatin (Zocor) 40 mg PO HS [facility]; Protocol Stop: 11/17/19 20:59 Last Admin: 09/24/19 21:06 Dose: 40 mg Valproate Sodium (Depakene) 250 mg PO BID [facility]; Protocol Stop: 11/19/19 16:59 Last Admin: 09/25/19 09:10 Dose: 250 mg Zolpidem Tartrate (Ambien) 5 mg PO HS PRN PRN Reason: Insomnia Stop: 11/20/19 20:45 Last Admin: 09/24/19 21:06 Dose: 5 mg General: weak, demented, NAD HEENT: NC/AT, PERRLA Neck: Supple, No JVD Lungs: CTAB Cardiovascular: RRR, Normal S1, Normal S2 Abdomen: soft, non-tender, non-distended Extremities: clear Neurological: disorganized, unable to follow command Internal Medicine Assmt/Plan - Assessment Assessment: Acute Psychosis. History of Diabetes. History of Dementia. - Plan Plan: Monitor vitals and Labs. Continue present meds as directed Accu-check daily, continue DM meds Monitor Diet/Nutritional Support Psych management as per Psych. Fall precaution Safety precaution Supportive Care Will Monitor patient and continue present care management. Nutritional Asmnt/Malnutr-PDOC - Dietary Evaluation Malnutrition Findings (Please click <Entered> for more info): Nutritional Asmnt/Malnutrition Start: 09/22/19 11: 11 Text: Status: Complete Freq: Protocol: Document 09/22/19 11:15 MILAD (Rec: 09/22/19 11:37 MILAD ROBERT- [email or web address]) Nutritional Asmnt/Malnutrition Patient General Information Nutritional Screening Moderate Risk Diagnosis Psychosis Pertinent Medical Hx/Surgical Hx Paranoid Schizophrenia, Dysphagia Oropharyngeal Phase, Anxiety Disorder, Type 2 Diabetes Mellitus Without Unspecified Complications, Cardiomegaly, Essential ( Primary) Hypertension, Cardiac Pacemaker, Hyperlipidemia, Dementia, Psychosis, Major Depressive Disorder, Peripheral Vascular Disease, Contracture of Muscle Right Hand Subjective Information PO intake ~50% of meals on average. Tolerating current diet order. Current Diet Order/ Nutrition Support mechanical soft, no concentrated sweets, 60 gm CCHO, no added sodium Patient / S.O Not Indicated Pertinent Medications vitamin D, colace, lantus, humalog, metformin Pertinent Labs Glucose 52-309 Nutritional Hx/Data Height 5 ft 4 in Height (Calculated Centimeters) 162.6 Current Weight (lbs) 126 lb Weight (Calculated Kilograms) 57.2 Weight (Calculated Grams) 18078.6 [place] Body Weight 120 % [place] Body Weight 105 Body Mass Index (BMI) 21.6 Recent Weight Change No Weight Status Approriate GI Symptoms GI Symptoms None Last BM 09/21 x 1 Difficult in: None Food Allergies No Cultural/Ethnic/Anabaptism Belief none indicated Usual diet at home unknown Skin Integrity/Comment: Carlos 20, multiple scratch ravindra to upper back both hands dorsal aspect Current %PO Poor (25-49%) Estimated Nutritional Goals BEE in Kcals: Using Current wt Calories/Kcals/Kg 57.2kg CBW 25-30 kcal/kg Kcals Calculated ~6695-7410 kcal/day Protein: Using Current wt Protein g/k.8-1 gm/kg Protein Calculated ~45-55 gm/day Fluid: ml ~7631-6006 ml/day (1 ml/kcal) Nutritional Problem 2. Problem Problem Altered nutrition related lab values related ot Etiology hypo and hyperglycemia aeb Signs/Symptoms: Glucose 52-309 1. Problem Problem Inadequate oral intake related to Etiology possible poor appetite aeb Signs/Symptoms: PO intake 0-100% with average intake ~50%. Intervention/Recommendation Comments 1. Continue current diet as tolerated by patient. 2. Encourage oral intake and provide assistance with meals. 3. MD to continue to avoid insulin regimen for optimal glycemic control. Expected Outcomes/Goals Expected Outcomes/Goals Adequate nutrition to meet >75 % estimated needs, improved labs, skin remains intact, weight maintenance or trend toward ideal body weight. F/U MR 3/3-5
[2019-09-25] MEDS: Insulin Glargine 100 units/ml 10ml Vial SUBQ SCH (21:06)
--- NOTE | 2019-09-25 23:52 | Progress Notes ---
DATE: 09/25/2019 Case was discussed with staff of the patient, reviewed records. The patient has been disorganized, disrobing herself. Continues to have poor insight. Continues to be unable to make safe plan for self-care, unpredictable, impulsive, needing redirection. Continues to have poor insight. No side effects of the medication, no sedation, no nausea, no extrapyramidal symptoms. I will be increasing Risperdal to 1 mg twice a day. We will be checking her Depakote level. No side effects with the medication, no sedation, no nausea, no extrapyramidal symptoms. We will continue to work with the patient in group therapy, milieu therapy, and adjust medication as needed. JOB# [id number]
[2019-09-26] MEDS: INSULIN LISPRO SLIDING SCALE 100 UNITS/ML UNIT SUBQ SCH ×4 (07:04→21:49)
--- NOTE | 2019-09-26 12:28 | Internal Medicine Prog Note ---
Internal Medicine Subjective - Subjective Service Date: 09/26/19 Patient seen and examined:: with staff Patient is:: awake (0), verbal, agitated, confused Patient Complaints of:: other (Hx of Dementia.) Per staff patient has:: no adverse event, no episodes of fall Internal Medicine Objective - Results Recent Labs: Laboratory Last Values POC Glucose 114 MG/DL (70 - 105) H 09/26/19 06:29 - Physical Exam Vitals and I&O: Vital Signs Temp 98.6 F 09/26/19 05:50 Pulse 79 09/26/19 09:10 Resp 19 09/26/19 05:50 BP 116/69 09/26/19 09:10 Pulse Ox 99 09/26/19 05:50 Intake & Output 09/25/19 09/26/19 09/26/19 18:59 06:59 18:59 Intake Total 1000 Balance 1000 Intake: Oral 1000 Other: # Voids 3 # Bowel Movements 0 Active Medications: Current Medications Acetaminophen (Tylenol) 650 mg PO Q4HR PRN PRN Reason: Pain (Mild) 1-3 Stop: 11/17/19 02:51 Acetaminophen (Tylenol) 650 mg PO Q4H PRN PRN Reason: Temperature Above 100.4 Stop: 11/17/19 02:51 Cholecalciferol (Vitamin D3) 1,000 iu PO DAILY [facility] Stop: 11/17/19 08:59 Last Admin: 09/26/19 09:10 Dose: 1,000 iu Docusate Sodium (Colace) 100 mg PO BID [facility] Stop: 11/17/19 08:59 Last Admin: 09/26/19 09:10 Dose: 100 mg Donepezil HCl (Aricept) 5 mg PO HS [facility] Stop: 11/17/19 20:59 Last Admin: 09/25/19 21:04 Dose: 5 mg Hydralazine HCl (Apresoline) 75 mg PO TID [facility] Stop: 11/17/19 08:59 Last Admin: 09/26/19 09:10 Dose: 75 mg Insulin Glargine (Lantus Insulin) 20 units SUBQ [facility] Stop: 11/17/19 20:59 Last Admin: 09/25/19 21:06 Dose: 20 units Insulin Human Lispro (Humalog Insulin Sliding Scale) 0 units SUBQ [facility]; Protocol Stop: 11/17/19 07:29 Last Admin: 09/26/19 11:15 Dose: Not Given Lorazepam (Ativan) 0.5 mg PO Q6H PRN; Protocol PRN Reason: Anxiety Stop: 11/17/19 06:43 Memantine (Namenda) 10 mg PO BID [facility] Stop: 11/25/19 16:59 Metformin HCl (Glucophage) 1,000 mg PO BID [facility] Stop: 11/17/19 08:59 Last Admin: 09/26/19 09:10 Dose: 1,000 mg Risperidone (Risperdal) 1 mg PO BID [facility]; Protocol Stop: 11/24/19 16:59 Simvastatin (Zocor) 40 mg PO HS [facility]; Protocol Stop: 11/17/19 20:59 Last Admin: 09/25/19 21:04 Dose: 40 mg Valproate Sodium (Depakene) 250 mg PO BID [facility]; Protocol Stop: 11/19/19 16:59 Last Admin: 09/26/19 09:10 Dose: 250 mg Zolpidem Tartrate (Ambien) 5 mg PO HS PRN PRN Reason: Insomnia Stop: 11/20/19 20:45 Last Admin: 09/25/19 21:04 Dose: 5 mg Physical Exam: Patient needs close monitoring, patient is demented, has been unrobing herself and making poor choices. General: weak, demented, NAD HEENT: NC/AT, PERRLA Neck: Supple, No JVD Lungs: CTAB Cardiovascular: RRR, Normal S1, Normal S2 Abdomen: soft, non-tender, non-distended Extremities: clear Neurological: disorganized, unable to follow command Internal Medicine Assmt/Plan - Assessment Assessment: Acute Psychosis. History of Diabetes. History of Dementia. - Plan Plan: Monitor vitals and Labs. Continue present meds as directed Accu-check daily, continue DM meds Monitor Diet/Nutritional Support Psych management as per Psych. Fall precaution Safety precaution Supportive Care Will Monitor patient and continue present care management. Nutritional Asmnt/Malnutr-PDOC - Dietary Evaluation Malnutrition Findings (Please click <Entered> for more info): Nutritional Asmnt/Malnutrition Start: 09/22/19 11: 11 Text: Status: Complete Freq: Protocol: Document 09/22/19 11:15 MILAD (Rec: 09/22/19 11:37 MILAD CONRAD [email or web address]) Nutritional Asmnt/Malnutrition Patient General Information Nutritional Screening Moderate Risk Diagnosis Psychosis Pertinent Medical Hx/Surgical Hx Paranoid Schizophrenia, Dysphagia Oropharyngeal Phase, Anxiety Disorder, Type 2 Diabetes Mellitus Without Unspecified Complications, Cardiomegaly, Essential ( Primary) Hypertension, Cardiac Pacemaker, Hyperlipidemia, Dementia, Psychosis, Major Depressive Disorder, Peripheral Vascular Disease, Contracture of Muscle Right Hand Subjective Information PO intake ~50% of meals on average. Tolerating current diet order. Current Diet Order/ Nutrition Support mechanical soft, no concentrated sweets, 60 gm CCHO, no added sodium Patient / S.O Not Indicated Pertinent Medications vitamin D, colace, lantus, humalog, metformin Pertinent Labs Glucose 52-309 Nutritional Hx/Data Height 1.63 m Height (Calculated Centimeters) 162.6 Current Weight (lbs) 57.153 kg Weight (Calculated Kilograms) 57.2 Weight (Calculated Grams) 08829.6 [place] Body Weight 120 % [place] Body Weight 105 Body Mass Index (BMI) 21.6 Recent Weight Change No Weight Status Approriate GI Symptoms GI Symptoms None Last BM 09/21 x 1 Difficult in: None Food Allergies No Cultural/Ethnic/Christianity Belief none indicated Usual diet at home unknown Skin Integrity/Comment: Carlos 20, multiple scratch ravindra to upper back both hands dorsal aspect Current %PO Poor (25-49%) Estimated Nutritional Goals BEE in Kcals: Using Current wt Calories/Kcals/Kg 57.2kg CBW 25-30 kcal/kg Kcals Calculated ~5178-9636 kcal/day Protein: Using Current wt Protein g/k.8-1 gm/kg Protein Calculated ~45-55 gm/day Fluid: ml ~3094-4658 ml/day (1 ml/kcal) Nutritional Problem 2. Problem Problem Altered nutrition related lab values related ot Etiology hypo and hyperglycemia aeb Signs/Symptoms: Glucose 52-309 1. Problem Problem Inadequate oral intake related to Etiology possible poor appetite aeb Signs/Symptoms: PO intake 0-100% with average intake ~50%. Intervention/Recommendation Comments 1. Continue current diet as tolerated by patient. 2. Encourage oral intake and provide assistance with meals. 3. MD to continue to avoid insulin regimen for optimal glycemic control. Expected Outcomes/Goals Expected Outcomes/Goals Adequate nutrition to meet >75 % estimated needs, improved labs, skin remains intact, weight maintenance or trend toward ideal body weight. F/U MR /-5
--- NOTE | 2019-09-26 14:19 | Progress Notes ---
DATE: 09/26/2019 Case was discussed with staff of the patient, reviewed records. The patient continues to be disrobing. She was put on 1:1 because of her agitated, out of control, inappropriate behavior. Continues to have poor insight, unable to make safe plan for self-care. No side effects with the medication, no sedation, no nausea, no extrapyramidal symptoms. I will be increasing her Namenda to 10 mg twice a day and Risperdal was increased yesterday to help decrease her agitated behavior. We will continue outpatient group therapy, milieu therapy, and adjust medications as needed. JOB# [id number]
[2019-09-26] MEDS: Insulin Glargine 100 units/ml 10ml Vial SUBQ SCH (21:48)
[2019-09-26] MEDS ORDERED: INSULIN LISPRO 100 UNIT/ML VIAL SUBQ ONE (22:42)
[2019-09-27] MEDS: INSULIN LISPRO SLIDING SCALE 100 UNITS/ML UNIT SUBQ SCH ×4 (06:44→22:02)
--- NOTE | 2019-09-27 14:01 | Internal Medicine Prog Note ---
Internal Medicine Subjective - Subjective Service Date: 09/27/19 Patient seen and examined:: with staff Patient is:: awake (0), verbal, agitated, confused Patient Complaints of:: other (Hx of Dementia.) Per staff patient has:: no adverse event, no episodes of fall Internal Medicine Objective - Results Recent Labs: Laboratory Last Values POC Glucose 280 MG/DL (70 - 105) H 09/26/19 23:59 - Physical Exam Vitals and I&O: Vital Signs Temp 98.6 F 09/27/19 07:12 Pulse 61 09/27/19 13:29 Resp 20 09/27/19 08:00 BP 123/76 09/27/19 13:29 Pulse Ox 98 09/27/19 07:12 Intake & Output 09/26/19 09/27/19 09/27/19 18:59 06:59 18:59 Intake Total 1200 120 120 Balance 1200 120 120 Intake: Oral 1200 120 120 Other: # Voids 2 2 # Bowel Movements 0 0 Active Medications: Current Medications Acetaminophen (Tylenol) 650 mg PO Q4HR PRN PRN Reason: Pain (Mild) 1-3 Stop: 11/17/19 02:51 Acetaminophen (Tylenol) 650 mg PO Q4H PRN PRN Reason: Temperature Above 100.4 Stop: 11/17/19 02:51 Cholecalciferol (Vitamin D3) 1,000 iu PO DAILY [facility] Stop: 11/17/19 08:59 Last Admin: 09/27/19 08:59 Dose: 1,000 iu Docusate Sodium (Colace) 100 mg PO BID [facility] Stop: 11/17/19 08:59 Last Admin: 09/27/19 09:00 Dose: 100 mg Donepezil HCl (Aricept) 5 mg PO HS [facility] Stop: 11/17/19 20:59 Last Admin: 09/26/19 21:44 Dose: 5 mg Hydralazine HCl (Apresoline) 75 mg PO TID [facility] Stop: 11/17/19 08:59 Last Admin: 09/27/19 13:29 Dose: Not Given Insulin Glargine (Lantus Insulin) 20 units SUBQ HS [facility] Stop: 11/17/19 20:59 Last Admin: 09/26/19 21:48 Dose: 20 units Insulin Human Lispro (Humalog Insulin Sliding Scale) 0 units SUBQ [facility]; Protocol Stop: 11/17/19 07:29 Last Admin: 09/27/19 11:54 Dose: 6 units Lorazepam (Ativan) 0.5 mg PO Q6H PRN; Protocol PRN Reason: Anxiety Stop: 11/17/19 06:43 Memantine (Namenda) 10 mg PO BID [facility] Stop: 11/25/19 16:59 Last Admin: 09/27/19 09:00 Dose: 10 mg Metformin HCl (Glucophage) 1,000 mg PO BID [facility] Stop: 11/17/19 08:59 Last Admin: 09/27/19 08:58 Dose: Not Given Risperidone (Risperdal) 1 mg PO BID [facility]; Protocol Stop: 11/24/19 16:59 Last Admin: 09/27/19 08:59 Dose: 1 mg Simvastatin (Zocor) 40 mg PO HS [facility]; Protocol Stop: 11/17/19 20:59 Last Admin: 09/26/19 21:51 Dose: 40 mg Valproate Sodium (Depakene) 250 mg PO BID [facility]; Protocol Stop: 11/19/19 16:59 Last Admin: 09/27/19 09:00 Dose: 250 mg Zolpidem Tartrate (Ambien) 5 mg PO HS PRN PRN Reason: Insomnia Stop: 11/20/19 20:45 Last Admin: 09/26/19 21:51 Dose: 5 mg Physical Exam: Patient needs close monitoring, patient is easily frustrated, is still undressing and being intrusive going into other patient's room, poor direction. General: weak, demented, NAD HEENT: NC/AT, PERRLA Neck: Supple, No JVD Lungs: CTAB Cardiovascular: RRR, Normal S1, Normal S2 Abdomen: soft, non-tender, non-distended Extremities: clear Neurological: disorganized, unable to follow command Internal Medicine Assmt/Plan - Assessment Assessment: Acute Psychosis. History of Diabetes. History of Dementia. - Plan Plan: Monitor vitals and Labs. Continue present meds as directed Accu-check daily, continue DM meds Monitor Diet/Nutritional Support Psych management as per Psych. Fall precaution Safety precaution Supportive Care Will Monitor patient and continue present care management. Nutritional Asmnt/Malnutr-PDOC - Dietary Evaluation Malnutrition Findings (Please click <Entered> for more info): Nutritional Asmnt/Malnutrition Start: 09/22/19 11: 11 Text: Status: Complete Freq: Protocol: Document 09/22/19 11:15 MILAD (Rec: 09/22/19 11:37 MILAD YESICA- [email or web address]) Nutritional Asmnt/Malnutrition Patient General Information Nutritional Screening Moderate Risk Diagnosis Psychosis Pertinent Medical Hx/Surgical Hx Paranoid Schizophrenia, Dysphagia Oropharyngeal Phase, Anxiety Disorder, Type 2 Diabetes Mellitus Without Unspecified Complications, Cardiomegaly, Essential ( Primary) Hypertension, Cardiac Pacemaker, Hyperlipidemia, Dementia, Psychosis, Major Depressive Disorder, Peripheral Vascular Disease, Contracture of Muscle Right Hand Subjective Information PO intake ~50% of meals on average. Tolerating current diet order. Current Diet Order/ Nutrition Support mechanical soft, no concentrated sweets, 60 gm CCHO, no added sodium Patient / S.O Not Indicated Pertinent Medications vitamin D, colace, lantus, humalog, metformin Pertinent Labs Glucose 52-309 Nutritional Hx/Data Height 1.63 m Height (Calculated Centimeters) 162.6 Current Weight (lbs) 57.153 kg Weight (Calculated Kilograms) 57.2 Weight (Calculated Grams) 16629.6 [place] Body Weight 120 % [place] Body Weight 105 Body Mass Index (BMI) 21.6 Recent Weight Change No Weight Status Approriate GI Symptoms GI Symptoms None Last BM 09/21 x 1 Difficult in: None Food Allergies No Cultural/Ethnic/Rastafarian Belief none indicated Usual diet at home unknown Skin Integrity/Comment: Carlos 20, multiple scratch ravindra to upper back both hands dorsal aspect Current %PO Poor (25-49%) Estimated Nutritional Goals BEE in Kcals: Using Current wt Calories/Kcals/Kg 57.2kg CBW 25-30 kcal/kg Kcals Calculated ~0841-9643 kcal/day Protein: Using Current wt Protein g/k.8-1 gm/kg Protein Calculated ~45-55 gm/day Fluid: ml ~4568-7028 ml/day (1 ml/kcal) Nutritional Problem 2. Problem Problem Altered nutrition related lab values related ot Etiology hypo and hyperglycemia aeb Signs/Symptoms: Glucose 52-309 1. Problem Problem Inadequate oral intake related to Etiology possible poor appetite aeb Signs/Symptoms: PO intake 0-100% with average intake ~50%. Intervention/Recommendation Comments 1. Continue current diet as tolerated by patient. 2. Encourage oral intake and provide assistance with meals. 3. MD to continue to avoid insulin regimen for optimal glycemic control. Expected Outcomes/Goals Expected Outcomes/Goals Adequate nutrition to meet >75 % estimated needs, improved labs, skin remains intact, weight maintenance or trend toward ideal body weight. F/U MR 3/3-5
--- NOTE | 2019-09-27 14:43 | Progress Notes ---
DATE: 09/27/2019 Case was discussed with staff of the patient, reviewed records. The patient on 1:1. Continues to be disturbing, continues to be confused, walking aimlessly on the unit. Continues to be unable to make safe plan for self-care, unpredictable, impulsive, demented, confused. No side effects with the medication, no sedation, no nausea, no extrapyramidal symptoms. Tolerating increase in Namenda yesterday as well as increase in Risperdal and no sedation, no nausea, no extrapyramidal symptoms. We will continue to work with the patient in group therapy, milieu therapy, adjust the medication as needed. JOB# [id number]
[2019-09-27] MEDS: Insulin Glargine 100 units/ml 10ml Vial SUBQ SCH (22:01)
[2019-09-28] MEDS: INSULIN LISPRO SLIDING SCALE 100 UNITS/ML UNIT SUBQ SCH ×4 (06:44→21:24)
--- NOTE | 2019-09-28 11:54 | Internal Medicine Prog Note ---
Internal Medicine Subjective - Subjective Service Date: 09/28/19 Patient seen and examined:: with staff, chart reviewed Patient is:: awake (0), verbal, agitated, confused Patient Complaints of:: other (Hx of Dementia.) Per staff patient has:: no adverse event, no episodes of fall Internal Medicine Objective - Results Recent Labs: Laboratory Last Values POC Glucose 89 MG/DL (70 - 105) 09/28/19 06:02 - Physical Exam Vitals and I&O: Vital Signs Temp 98.3 F 09/28/19 06:25 Pulse 66 09/28/19 06:25 Resp 20 09/28/19 08:00 BP 136/69 09/28/19 06:25 Pulse Ox 95 09/28/19 06:25 Intake & Output 09/27/19 09/28/19 09/28/19 18:59 06:59 18:59 Intake Total 120 240 Balance 120 240 Intake: Oral 120 240 Other: # Voids 2 2 # Bowel Movements 0 0 Active Medications: Current Medications Acetaminophen (Tylenol) 650 mg PO Q4HR PRN PRN Reason: Pain (Mild) 1-3 Stop: 11/17/19 02:51 Acetaminophen (Tylenol) 650 mg PO Q4H PRN PRN Reason: Temperature Above 100.4 Stop: 11/17/19 02:51 Cholecalciferol (Vitamin D3) 1,000 iu PO DAILY [facility] Stop: 11/17/19 08:59 Last Admin: 09/27/19 08:59 Dose: 1,000 iu Docusate Sodium (Colace) 100 mg PO BID [facility] Stop: 11/17/19 08:59 Last Admin: 09/27/19 16:30 Dose: 100 mg Donepezil HCl (Aricept) 5 mg PO HS [facility] Stop: 11/17/19 20:59 Last Admin: 09/27/19 21:24 Dose: 5 mg Hydralazine HCl (Apresoline) 75 mg PO TID [facility] Stop: 11/17/19 08:59 Last Admin: 09/27/19 21:24 Dose: 75 mg Insulin Glargine (Lantus Insulin) 20 units SUBQ HS [facility] Stop: 11/17/19 20:59 Last Admin: 09/27/19 22:01 Dose: 20 units Insulin Human Lispro (Humalog Insulin Sliding Scale) [address] [facility]; Protocol Stop: 11/17/19 07:29 Last Admin: 09/28/19 06:44 Dose: Not Given Lorazepam (Ativan) 0.5 mg PO Q6H PRN; Protocol PRN Reason: Anxiety Stop: 11/17/19 06:43 Memantine (Namenda) 10 mg PO BID [facility] Stop: 11/25/19 16:59 Last Admin: 09/27/19 16:31 Dose: 10 mg Metformin HCl (Glucophage) 1,000 mg PO BID [facility] Stop: 11/17/19 08:59 Last Admin: 09/27/19 16:30 Dose: 1,000 mg Risperidone (Risperdal) 1 mg PO BID [facility]; Protocol Stop: 11/24/19 16:59 Last Admin: 09/27/19 16:31 Dose: 1 mg Simvastatin (Zocor) 40 mg PO HS [facility]; Protocol Stop: 11/17/19 20:59 Last Admin: 09/27/19 21:24 Dose: 40 mg Valproate Sodium (Depakene) 250 mg PO TID [facility]; Protocol Stop: 11/27/19 13:59 Zolpidem Tartrate (Ambien) 5 mg PO HS PRN PRN Reason: Insomnia Stop: 11/20/19 20:45 Last Admin: 09/27/19 21:24 Dose: 5 mg Physical Exam: Patient needs close monitoring, patient is demented, poor insight and judgment. General: weak, demented, NAD HEENT: NC/AT, PERRLA Neck: Supple, No JVD Lungs: CTAB Cardiovascular: RRR, Normal S1, Normal S2 Abdomen: soft, non-tender, non-distended Extremities: clear Neurological: disorganized, unable to follow command Internal Medicine Assmt/Plan - Assessment Assessment: Acute Psychosis. History of Diabetes. History of Dementia. - Plan Plan: Monitor vitals and Labs. Continue present meds as directed Accu-check daily, continue DM meds Monitor Diet/Nutritional Support Psych management as per Psych. Fall precaution Safety precaution Supportive Care Will Monitor patient and continue present care management. Nutritional Asmnt/Malnutr-PDOC - Dietary Evaluation Malnutrition Findings (Please click <Entered> for more info): Nutritional Asmnt/Malnutrition Start: 09/22/19 11: 11 Text: Status: Complete Freq: Protocol: Document 09/22/19 11:15 MMULHERN (Rec: 09/22/19 11:37 MILAD YESICA- FNS1) Nutritional Asmnt/Malnutrition Patient General Information Nutritional Screening Moderate Risk Diagnosis Psychosis Pertinent Medical Hx/Surgical Hx Paranoid Schizophrenia, Dysphagia Oropharyngeal Phase, Anxiety Disorder, Type 2 Diabetes Mellitus Without Unspecified Complications, Cardiomegaly, Essential ( Primary) Hypertension, Cardiac Pacemaker, Hyperlipidemia, Dementia, Psychosis, Major Depressive Disorder, Peripheral Vascular Disease, Contracture of Muscle Right Hand Subjective Information PO intake ~50% of meals on average. Tolerating current diet order. Current Diet Order/ Nutrition Support mechanical soft, no concentrated sweets, 60 gm CCHO, no added sodium Patient / S.O Not Indicated Pertinent Medications vitamin D, colace, lantus, humalog, metformin Pertinent Labs Glucose 52-309 Nutritional Hx/Data Height 1.63 m Height (Calculated Centimeters) 162.6 Current Weight (lbs) 57.153 kg Weight (Calculated Kilograms) 57.2 Weight (Calculated Grams) 26993.6 [place] Body Weight 120 % [place] Body Weight 105 Body Mass Index (BMI) 21.6 Recent Weight Change No Weight Status Approriate GI Symptoms GI Symptoms None Last BM 09/21 x 1 Difficult in: None Food Allergies No Cultural/Ethnic/Congregational Belief none indicated Usual diet at home unknown Skin Integrity/Comment: Carlos 20, multiple scratch ravindra to upper back both hands dorsal aspect Current %PO Poor (25-49%) Estimated Nutritional Goals BEE in Kcals: Using Current wt Calories/Kcals/Kg 57.2kg CBW 25-30 kcal/kg Kcals Calculated ~2429-9567 kcal/day Protein: Using Current wt Protein g/k.8-1 gm/kg Protein Calculated ~45-55 gm/day Fluid: ml ~8900-1839 ml/day (1 ml/kcal) Nutritional Problem 2. Problem Problem Altered nutrition related lab values related ot Etiology hypo and hyperglycemia aeb Signs/Symptoms: Glucose 52-309 1. Problem Problem Inadequate oral intake related to Etiology possible poor appetite aeb Signs/Symptoms: PO intake 0-100% with average intake ~50%. Intervention/Recommendation Comments 1. Continue current diet as tolerated by patient. 2. Encourage oral intake and provide assistance with meals. 3. MD to continue to avoid insulin regimen for optimal glycemic control. Expected Outcomes/Goals Expected Outcomes/Goals Adequate nutrition to meet >75 % estimated needs, improved labs, skin remains intact, weight maintenance or trend toward ideal body weight. F/U MR /-5
--- NOTE | 2019-09-28 18:27 | Progress Notes ---
DATE: 09/28/2019 SUBJECTIVE: Case was discussed with staff of the patient, reviewed records. The patient continues to be disrobing agitated, though she was able to speak today, but she is internally preoccupied, stays to herself, pacing at times that she was kept on 1:1 because of her agitated and inappropriate behavior. She is sleeping better, eating better. No side effects with the medication, no sedation, no nausea, no extrapyramidal symptoms. I will be increasing her Depakote to 3 times a day. She is demented, confused, and we will continue outpatient group therapy, milieu therapy, and adjust medication as needed. JOB# [id number] SINDY
[2019-09-28] MEDS: Insulin Glargine 100 units/ml 10ml Vial SUBQ SCH (21:23)
[2019-09-29] MEDS: INSULIN LISPRO SLIDING SCALE 100 UNITS/ML UNIT SUBQ SCH ×4 (06:53→21:42)
--- NOTE | 2019-09-29 18:09 | Progress Notes ---
DATE: 09/29/2019 SUBJECTIVE: The patient was seen in her room. The patient is very confused and needs a lot of redirection and easily gets frustrated, poor impulse control. The patient is currently on a 1:1 due to safety. Otherwise, the patient is in no acute distress. OBJECTIVE: VITAL SIGNS: Temperature 97.8, heart rate 61, blood pressure 117/60, respirations 20, 97% on room air. HEENT: Head is atraumatic and normocephalic. Eyes: Bilateral conjunctivae are clear. Bilateral pupils equal, round, reactive. NECK: Supple. No JVD. CARDIOVASCULAR: S1, S2, without murmur. PULMONARY: Clear to auscultation. GASTROINTESTINAL: Soft and nontender without guarding. Positive bowel sounds. MUSCULOSKELETAL: No clubbing. No cyanosis noted. ASSESSMENT: 1. Psychosis. 2. Dementia. 3. Diabetes. 4. Vitamin D deficiency. 5. Osteoarthritis. 6. Hypertension. 7. Hyperlipidemia. PLAN: We will continue to keep the patient to inpatient Psychiatric Unit. We will follow up with a psychiatrist to monitor the patient's condition and behavior. We will put the patient on fall precautions and continue 1:1 sitter. Treatment plans were discussed with the patient's nurse. Treatment plans were discussed with Dr. Stroud. JOB# [id number]
[2019-09-29] MEDS: Insulin Glargine 100 units/ml 10ml Vial SUBQ SCH (21:41)
--- NOTE | 2019-09-30 03:29 | Progress Notes ---
DATE: 09/29/2019 IDENTIFYING DATA: A 63-year-old female brought in here from [place] after disrobing, talking to herself. In the last 24 hours, the patient observed continued to be preoccupied patient. Today on [id number] evaluation, she is on one-to-one sitter, poor historian overall. Upon approaching her, she dismisses, walks away, disengage. CURRENT MEDICATIONS: Reconciliation reviewed include Aricept, Namenda, risperidone, Depakote, which was recently increased to t.i.d. PHYSICAL EXAMINATION: Disorganized, disrobing, disheveled. ASSESSMENT AND PLAN: The patient continues to be disheveled, disorganized, disrobing, needing 1:1 attention and redirection. We will continue with the recent augmentation and increase of Depakote. JOB# [id number]
[2019-09-30] MEDS: INSULIN LISPRO SLIDING SCALE 100 UNITS/ML UNIT SUBQ SCH ×4 (07:04→20:55)
--- NOTE | 2019-09-30 13:38 | Internal Medicine Prog Note ---
Internal Medicine Subjective - Subjective Patient is:: asleep, verbal, agitated, confused Patient Complaints of:: other (Hx of Dementia. Patient currently with a sitter at bedside.) Per staff patient has:: no adverse event, no episodes of fall Internal Medicine Objective - Results Recent Labs: Laboratory Last Values POC Glucose 100 MG/DL (70 - 105) 09/30/19 12:09 - Physical Exam Vitals and I&O: Vital Signs Temp 97.8 F 09/30/19 06:18 Pulse 67 09/30/19 08:24 Resp 20 09/30/19 06:18 BP 124/69 09/30/19 08:24 Pulse Ox 97 09/30/19 06:18 Intake & Output 09/29/19 09/30/19 09/30/19 17:59 06:59 18:59 Intake Total Balance Intake: Oral Other: # Voids # Bowel Movements Stool Characteristics Active Medications: Current Medications Acetaminophen (Tylenol) 650 mg PO Q4HR PRN PRN Reason: Pain (Mild) 1-3 Stop: 11/17/19 02:51 Acetaminophen (Tylenol) 650 mg PO Q4H PRN PRN Reason: Temperature Above 100.4 Stop: 11/17/19 02:51 Cholecalciferol (Vitamin D3) 1,000 iu PO DAILY [facility] Stop: 11/17/19 08:59 Last Admin: 09/30/19 08:24 Dose: 1,000 iu Docusate Sodium (Colace) 100 mg PO BID [facility] Stop: 11/17/19 08:59 Last Admin: 09/30/19 08:24 Dose: 100 mg Donepezil HCl (Aricept) 5 mg PO HS [facility] Stop: 11/17/19 20:59 Last Admin: 09/29/19 21:13 Dose: 5 mg Hydralazine HCl (Apresoline) 75 mg PO TID [facility] Stop: 11/17/19 08:59 Last Admin: 09/30/19 08:24 Dose: 75 mg Insulin Glargine (Lantus Insulin) 20 units SUBQ [facility] Stop: 11/17/19 20:59 Last Admin: 09/29/19 21:41 Dose: 20 units Insulin Human Lispro (Humalog Insulin Sliding Scale) 0 units SUBQ [facility]; Protocol Stop: 11/17/19 07:29 Last Admin: 09/30/19 12:00 Dose: Not Given Lorazepam (Ativan) 0.5 mg PO Q6H PRN; Protocol PRN Reason: Anxiety Stop: 11/17/19 06:43 Last Admin: 09/29/19 21:13 Dose: 0.5 mg Memantine (Namenda) 10 mg PO BID [facility] Stop: 11/25/19 16:59 Last Admin: 09/30/19 08:25 Dose: 10 mg Metformin HCl (Glucophage) 1,000 mg PO BID [facility] Stop: 11/17/19 08:59 Last Admin: 09/30/19 08:25 Dose: 1,000 mg Risperidone (Risperdal) 1 mg PO BID [facility]; Protocol Stop: 11/24/19 16:59 Last Admin: 09/30/19 08:26 Dose: 1 mg Simvastatin (Zocor) 40 mg PO HS [facility]; Protocol Stop: 11/17/19 20:59 Last Admin: 09/29/19 21:14 Dose: 40 mg Valproate Sodium (Depakene) 250 mg PO TID [facility]; Protocol Stop: 11/27/19 13:59 Last Admin: 09/30/19 08:30 Dose: 250 mg General: weak, demented, NAD HEENT: NC/AT, PERRLA Neck: Supple, No JVD Lungs: CTAB Cardiovascular: RRR Abdomen: soft, non-tender, non-distended Extremities: clear Neurological: disorganized, unable to follow command Internal Medicine Assmt/Plan - Assessment Assessment: Acute Psychosis. Dementia DM Vit Deficiency OA HTN Hyperlipidemia - Plan Plan: Continue current managements Monitor VS Monitor Labs Psych management per Psych Pain managment as needed. Monitor nutritional needs. Fall Precaution Continue collaboration with interdisciplinary team. Nutritional Asmnt/Malnutr-PDOC - Dietary Evaluation Malnutrition Findings (Please click <Entered> for more info): Nutritional Asmnt/Malnutrition Start: 09/22/19 11: 11 Text: Status: Complete Freq: Protocol: Document 09/22/19 11:15 MILAD (Rec: 09/22/19 11:37 MILAD ROBERT- FNS1) Nutritional Asmnt/Malnutrition Patient General Information Nutritional Screening Moderate Risk Diagnosis Psychosis Pertinent Medical Hx/Surgical Hx Paranoid Schizophrenia, Dysphagia Oropharyngeal Phase, Anxiety Disorder, Type 2 Diabetes Mellitus Without Unspecified Complications, Cardiomegaly, Essential ( Primary) Hypertension, Cardiac Pacemaker, Hyperlipidemia, Dementia, Psychosis, Major Depressive Disorder, Peripheral Vascular Disease, Contracture of Muscle Right Hand Subjective Information PO intake ~50% of meals on average. Tolerating current diet order. Current Diet Order/ Nutrition Support mechanical soft, no concentrated sweets, 60 gm CCHO, no added sodium Patient / S.O Not Indicated Pertinent Medications vitamin D, colace, lantus, humalog, metformin Pertinent Labs Glucose 52-309 Nutritional Hx/Data Height 5 ft 4 in Height (Calculated Centimeters) 162.6 Current Weight (lbs) 126 lb Weight (Calculated Kilograms) 57.2 Weight (Calculated Grams) 99974.6 [place] Body Weight 120 % [place] Body Weight 105 Body Mass Index (BMI) 21.6 Recent Weight Change No Weight Status Approriate GI Symptoms GI Symptoms None Last BM 09/21 x 1 Difficult in: None Food Allergies No Cultural/Ethnic/Anabaptist Belief none indicated Usual diet at home unknown Skin Integrity/Comment: Carlos 20, multiple scratch ravindra to upper back both hands dorsal aspect Current %PO Poor (25-49%) Estimated Nutritional Goals BEE in Kcals: Using Current wt Calories/Kcals/Kg 57.2kg CBW 25-30 kcal/kg Kcals Calculated ~8849-9772 kcal/day Protein: Using Current wt Protein g/k.8-1 gm/kg Protein Calculated ~45-55 gm/day Fluid: ml ~4354-0128 ml/day (1 ml/kcal) Nutritional Problem 2. Problem Problem Altered nutrition related lab values related ot Etiology hypo and hyperglycemia aeb Signs/Symptoms: Glucose 52-309 1. Problem Problem Inadequate oral intake related to Etiology possible poor appetite aeb Signs/Symptoms: PO intake 0-100% with average intake ~50%. Intervention/Recommendation Comments 1. Continue current diet as tolerated by patient. 2. Encourage oral intake and provide assistance with meals. 3. MD to continue to avoid insulin regimen for optimal glycemic control. Expected Outcomes/Goals Expected Outcomes/Goals Adequate nutrition to meet >75 % estimated needs, improved labs, skin remains intact, weight maintenance or trend toward ideal body weight. F/U MR 3/3-5
[2019-09-30] MEDS: Insulin Glargine 100 units/ml 10ml Vial SUBQ SCH (20:57)
--- NOTE | 2019-10-01 01:17 | Progress Notes ---
DATE: SUBJECTIVE: The patient was seen and evaluated. The patient's chart was reviewed. Today, on [id number] evaluation, the patient continues to need redirection with one-to-one sitter to continue preventing the risk ____. MENTAL STATUS EXAMINATION: Disorganized ____. ASSESSMENT AND PLAN: Grossly disorganized, continues to need redirection. We will continue monitoring and evaluating and continue with primary psychiatrist's treatment plan and goals. [facility]# [id number]
[2019-10-01] MEDS: INSULIN LISPRO SLIDING SCALE 100 UNITS/ML UNIT SUBQ SCH ×4 (07:25→21:00)
--- NOTE | 2019-10-01 17:12 | Internal Medicine Prog Note ---
Internal Medicine Subjective - Subjective Service Date: 10/01/19 Patient is:: asleep, verbal, agitated, confused Patient Complaints of:: other (Hx of Dementia. Patient currently with a sitter at bedside.) Per staff patient has:: no adverse event, no episodes of fall Internal Medicine Objective - Results Recent Labs: Laboratory Last Values POC Glucose 325 MG/DL (70 - 105) H 10/01/19 11:58 - Physical Exam Vitals and I&O: Vital Signs Temp 97.0 F 10/01/19 14:00 Pulse 69 10/01/19 14:00 Resp 18 10/01/19 14:00 BP 107/62 10/01/19 14:00 Pulse Ox 97 10/01/19 14:00 Intake & Output 09/30/19 10/01/19 10/01/19 18:59 06:59 18:59 Intake Total 360 120 Balance 360 120 Intake: Oral 360 120 Other: # Voids 2 3 # Bowel Movements 0 0 Active Medications: Current Medications Acetaminophen (Tylenol) 650 mg PO Q4HR PRN PRN Reason: Pain (Mild) 1-3 Stop: 11/17/19 02:51 Acetaminophen (Tylenol) 650 mg PO Q4H PRN PRN Reason: Temperature Above 100.4 Stop: 11/17/19 02:51 Cholecalciferol (Vitamin D3) 1,000 iu PO DAILY [facility] Stop: 11/17/19 08:59 Last Admin: 10/01/19 08:29 Dose: 1,000 iu Docusate Sodium (Colace) 100 mg PO BID [facility] Stop: 11/17/19 08:59 Last Admin: 10/01/19 08:29 Dose: 100 mg Donepezil HCl (Aricept) 5 mg PO HS [facility] Stop: 11/17/19 20:59 Last Admin: 09/30/19 20:35 Dose: 5 mg Hydralazine HCl (Apresoline) 75 mg PO TID [facility] Stop: 11/17/19 08:59 Last Admin: 10/01/19 14:00 Dose: 75 mg Insulin Glargine (Lantus Insulin) 20 units SUBQ [facility] Stop: 11/17/19 20:59 Last Admin: 09/30/19 20:57 Dose: 20 units Insulin Human Lispro (Humalog Insulin Sliding Scale) 0 units SUBQ [facility]; Protocol Stop: 11/17/19 07:29 Last Admin: 10/01/19 11:30 Dose: 8 units Lorazepam (Ativan) 0.5 mg PO Q6H PRN; Protocol PRN Reason: Anxiety Stop: 11/17/19 06:43 Last Admin: 09/30/19 20:35 Dose: 0.5 mg Memantine (Namenda) 10 mg PO BID [facility] Stop: 11/25/19 16:59 Last Admin: 10/01/19 08:29 Dose: 10 mg Metformin HCl (Glucophage) 1,000 mg PO BID [facility] Stop: 11/17/19 08:59 Last Admin: 10/01/19 08:29 Dose: 1,000 mg Risperidone (Risperdal) 1 mg PO BID [facility]; Protocol Stop: 11/24/19 16:59 Last Admin: 10/01/19 08:29 Dose: 1 mg Simvastatin (Zocor) 40 mg PO HS [facility]; Protocol Stop: 11/17/19 20:59 Last Admin: 09/30/19 20:34 Dose: 40 mg Valproate Sodium (Depakene) 250 mg PO TID [facility]; Protocol Stop: 11/27/19 13:59 Last Admin: 10/01/19 14:00 Dose: 250 mg General: weak, demented, NAD HEENT: NC/AT, PERRLA Neck: Supple, No JVD Lungs: CTAB Cardiovascular: RRR Abdomen: soft, non-tender, non-distended Extremities: clear Neurological: disorganized, unable to follow command Internal Medicine Assmt/Plan - Assessment Assessment: Acute Psychosis. History of Diabetes. History of Dementia. - Plan Plan: Monitor vitals and Labs. Continue present meds as directed Accu-check daily, continue DM meds Monitor Diet/Nutritional Support Psych management as per Psych. Fall precaution Safety precaution Supportive Care Will Monitor patient and continue present care management. Nutritional Asmnt/Malnutr-PDOC - Dietary Evaluation Malnutrition Findings (Please click <Entered> for more info): Nutritional Asmnt/Malnutrition Start: 09/22/19 11: 11 Text: Status: Complete Freq: Protocol: Document 09/22/19 11:15 MMULGURMEET (Rec: 09/22/19 11:37 MMULGURMEET ROBERT- [email or web address]) Nutritional Asmnt/Malnutrition Patient General Information Nutritional Screening Moderate Risk Diagnosis Psychosis Pertinent Medical Hx/Surgical Hx Paranoid Schizophrenia, Dysphagia Oropharyngeal Phase, Anxiety Disorder, Type 2 Diabetes Mellitus Without Unspecified Complications, Cardiomegaly, Essential ( Primary) Hypertension, Cardiac Pacemaker, Hyperlipidemia, Dementia, Psychosis, Major Depressive Disorder, Peripheral Vascular Disease, Contracture of Muscle Right Hand Subjective Information PO intake ~50% of meals on average. Tolerating current diet order. Current Diet Order/ Nutrition Support mechanical soft, no concentrated sweets, 60 gm CCHO, no added sodium Patient / S.O Not Indicated Pertinent Medications vitamin D, colace, lantus, humalog, metformin Pertinent Labs Glucose 52-309 Nutritional Hx/Data Height 5 ft 4 in Height (Calculated Centimeters) 162.6 Current Weight (lbs) 126 lb Weight (Calculated Kilograms) 57.2 Weight (Calculated Grams) 49441.6 [place] Body Weight 120 % [place] Body Weight 105 Body Mass Index (BMI) 21.6 Recent Weight Change No Weight Status Approriate GI Symptoms GI Symptoms None Last BM 09/21 x 1 Difficult in: None Food Allergies No Cultural/Ethnic/Lutheran Belief none indicated Usual diet at home unknown Skin Integrity/Comment: Carlos 20, multiple scratch ravindra to upper back both hands dorsal aspect Current %PO Poor (25-49%) Estimated Nutritional Goals BEE in Kcals: Using Current wt Calories/Kcals/Kg 57.2kg CBW 25-30 kcal/kg Kcals Calculated ~0706-3816 kcal/day Protein: Using Current wt Protein g/k.8-1 gm/kg Protein Calculated ~45-55 gm/day Fluid: ml ~3401-4940 ml/day (1 ml/kcal) Nutritional Problem 2. Problem Problem Altered nutrition related lab values related ot Etiology hypo and hyperglycemia aeb Signs/Symptoms: Glucose 52-309 1. Problem Problem Inadequate oral intake related to Etiology possible poor appetite aeb Signs/Symptoms: PO intake 0-100% with average intake ~50%. Intervention/Recommendation Comments 1. Continue current diet as tolerated by patient. 2. Encourage oral intake and provide assistance with meals. 3. MD to continue to avoid insulin regimen for optimal glycemic control. Expected Outcomes/Goals Expected Outcomes/Goals Adequate nutrition to meet >75 % estimated needs, improved labs, skin remains intact, weight maintenance or trend toward ideal body weight. F/U MR 3/3-5
[2019-10-01] MEDS: Insulin Glargine 100 units/ml 10ml Vial SUBQ SCH (21:11)
--- NOTE | 2019-10-02 02:11 | Progress Notes ---
DATE: 10/01/2019 Case was discussed with staff of the patient, reviewed records. The patient continues to be disorganized, continues to be sobbing, needing 1:1. She continues to have poor insight. Continues to need redirection. She is compliant with the medication with no side effects, no sedation, no nausea, no extrapyramidal symptoms. I did increase her Depakote level to 50 mg 3 times a day and I will be ordering a Depakote level tomorrow and so far no side effects with the medication, no sedation, no nausea, no extrapyramidal symptoms. Continues to be gravely disabled and not ready to go to a lesser level of care and will continue the patient in group therapy, milieu therapy, adjust medication as needed. JOB# [id number]
[2019-10-02] MEDS: INSULIN LISPRO SLIDING SCALE 100 UNITS/ML UNIT SUBQ SCH ×4 (06:39→21:09)
--- NOTE | 2019-10-02 16:05 | Internal Medicine Prog Note ---
Internal Medicine Subjective - Subjective Service Date: 10/02/19 Patient is:: asleep, verbal, agitated, confused Patient Complaints of:: other (Hx of Dementia. Patient currently with a sitter at bedside.) Per staff patient has:: no adverse event, no episodes of fall Internal Medicine Objective - Results Recent Labs: Laboratory Last Values POC Glucose 128 MG/DL (70 - 105) H 10/02/19 06:06 - Physical Exam Vitals and I&O: Vital Signs Temp 97.7 F 10/02/19 14:00 Pulse 72 10/02/19 14:00 Resp 18 10/02/19 14:00 BP 111/68 10/02/19 14:00 Pulse Ox 95 10/02/19 14:00 Intake & Output 10/01/19 10/02/19 10/02/19 18:59 06:59 18:59 Intake Total 1300 360 Balance 1300 360 Intake: Oral 1300 360 Other: # Voids 3 2 # Bowel Movements 1 0 Active Medications: Current Medications Acetaminophen (Tylenol) 650 mg PO Q4HR PRN PRN Reason: Pain (Mild) 1-3 Stop: 11/17/19 02:51 Acetaminophen (Tylenol) 650 mg PO Q4H PRN PRN Reason: Temperature Above 100.4 Stop: 11/17/19 02:51 Cholecalciferol (Vitamin D3) 1,000 iu PO DAILY [facility] Stop: 11/17/19 08:59 Last Admin: 10/02/19 08:41 Dose: 1,000 iu Docusate Sodium (Colace) 100 mg PO BID [facility] Stop: 11/17/19 08:59 Last Admin: 10/02/19 08:41 Dose: 100 mg Donepezil HCl (Aricept) 5 mg PO HS [facility] Stop: 11/17/19 20:59 Last Admin: 10/01/19 20:48 Dose: 5 mg Hydralazine HCl (Apresoline) 75 mg PO TID [facility] Stop: 11/17/19 08:59 Last Admin: 10/02/19 14:00 Dose: 75 mg Insulin Glargine (Lantus Insulin) 20 units SUBQ [facility] Stop: 11/17/19 20:59 Last Admin: 10/01/19 21:11 Dose: 20 units Insulin Human Lispro (Humalog Insulin Sliding Scale) 0 units SUBQ [facility]; Protocol Stop: 11/17/19 07:29 Last Admin: 10/02/19 11:30 Dose: 8 units Lorazepam (Ativan) 0.5 mg PO Q6H PRN; Protocol PRN Reason: Anxiety Stop: 11/17/19 06:43 Last Admin: 10/02/19 08:40 Dose: 0.5 mg Memantine (Namenda) 10 mg PO BID [facility] Stop: 11/25/19 16:59 Last Admin: 10/02/19 08:41 Dose: 10 mg Metformin HCl (Glucophage) 1,000 mg PO BID [facility] Stop: 11/17/19 08:59 Last Admin: 10/02/19 08:41 Dose: 1,000 mg Risperidone (Risperdal) 1 mg PO BID [facility]; Protocol Stop: 11/24/19 16:59 Last Admin: 10/02/19 08:41 Dose: 1 mg Simvastatin (Zocor) 40 mg PO HS [facility]; Protocol Stop: 11/17/19 20:59 Last Admin: 10/01/19 20:48 Dose: 40 mg Valproate Sodium (Depakene) 250 mg PO TID [facility]; Protocol Stop: 11/27/19 13:59 Last Admin: 10/02/19 14:00 Dose: 250 mg General: weak, demented, NAD HEENT: NC/AT, PERRLA Neck: Supple, No JVD Lungs: CTAB Cardiovascular: RRR Abdomen: soft, non-tender, non-distended Extremities: clear Neurological: disorganized, unable to follow command Internal Medicine Assmt/Plan - Assessment Assessment: Acute Psychosis. History of Diabetes. History of Dementia. - Plan Plan: Monitor vitals and Labs. Continue present meds as directed Accu-check daily, continue DM meds Monitor Diet/Nutritional Support Psych management as per Psych. Fall precaution Safety precaution Supportive Care Will Monitor patient and continue present care management. Nutritional Asmnt/Malnutr-PDOC - Dietary Evaluation Malnutrition Findings (Please click <Entered> for more info): Nutritional Asmnt/Malnutrition Start: 09/22/19 11: 11 Text: Status: Complete Freq: Protocol: Document 09/22/19 11:15 MMULGURMEET (Rec: 09/22/19 11:37 MMULGURMEET ROBERT- [email or web address]) Nutritional Asmnt/Malnutrition Patient General Information Nutritional Screening Moderate Risk Diagnosis Psychosis Pertinent Medical Hx/Surgical Hx Paranoid Schizophrenia, Dysphagia Oropharyngeal Phase, Anxiety Disorder, Type 2 Diabetes Mellitus Without Unspecified Complications, Cardiomegaly, Essential ( Primary) Hypertension, Cardiac Pacemaker, Hyperlipidemia, Dementia, Psychosis, Major Depressive Disorder, Peripheral Vascular Disease, Contracture of Muscle Right Hand Subjective Information PO intake ~50% of meals on average. Tolerating current diet order. Current Diet Order/ Nutrition Support mechanical soft, no concentrated sweets, 60 gm CCHO, no added sodium Patient / S.O Not Indicated Pertinent Medications vitamin D, colace, lantus, humalog, metformin Pertinent Labs Glucose 52-309 Nutritional Hx/Data Height 5 ft 4 in Height (Calculated Centimeters) 162.6 Current Weight (lbs) 126 lb Weight (Calculated Kilograms) 57.2 Weight (Calculated Grams) 84059.6 [place] Body Weight 120 % [place] Body Weight 105 Body Mass Index (BMI) 21.6 Recent Weight Change No Weight Status Approriate GI Symptoms GI Symptoms None Last BM 09/21 x 1 Difficult in: None Food Allergies No Cultural/Ethnic/Episcopalian Belief none indicated Usual diet at home unknown Skin Integrity/Comment: Carlos 20, multiple scratch ravindra to upper back both hands dorsal aspect Current %PO Poor (25-49%) Estimated Nutritional Goals BEE in Kcals: Using Current wt Calories/Kcals/Kg 57.2kg CBW 25-30 kcal/kg Kcals Calculated ~7548-1771 kcal/day Protein: Using Current wt Protein g/k.8-1 gm/kg Protein Calculated ~45-55 gm/day Fluid: ml ~0705-2439 ml/day (1 ml/kcal) Nutritional Problem 2. Problem Problem Altered nutrition related lab values related ot Etiology hypo and hyperglycemia aeb Signs/Symptoms: Glucose 52-309 1. Problem Problem Inadequate oral intake related to Etiology possible poor appetite aeb Signs/Symptoms: PO intake 0-100% with average intake ~50%. Intervention/Recommendation Comments 1. Continue current diet as tolerated by patient. 2. Encourage oral intake and provide assistance with meals. 3. MD to continue to avoid insulin regimen for optimal glycemic control. Expected Outcomes/Goals Expected Outcomes/Goals Adequate nutrition to meet >75 % estimated needs, improved labs, skin remains intact, weight maintenance or trend toward ideal body weight. F/U MR 3/3-5
[2019-10-02] MEDS: Insulin Glargine 100 units/ml 10ml Vial SUBQ SCH (21:09)
--- NOTE | 2019-10-02 22:59 | Progress Notes ---
DATE: 10/02/2019 Case was discussed with staff of the patient, reviewed records. The patient is still on 1:1, but the staff is trying her without 1:1 to see what happens, so we can arrange for her discharge plan. She is sleeping better, eating better. She is able to feed herself. She is less pacing. No side effects with the medication, no sedation, no nausea, no extrapyramidal symptoms. We will continue outpatient group therapy, milieu therapy, and adjust the medications as needed. JOB# [id number]
[2019-10-03] MEDS: INSULIN LISPRO SLIDING SCALE 100 UNITS/ML UNIT SUBQ SCH ×4 (06:41→21:26)
[2019-10-03] MEDS: Insulin Glargine 100 units/ml 10ml Vial SUBQ SCH ×2 (09:15→21:26)
--- NOTE | 2019-10-03 12:21 | Progress Notes ---
DATE: 10/03/2019 Case was discussed with staff of these records. The patient is not disturbing, but she is going to other patient's room and eating their food. Continuous need to redirection. Continues to have poor insight, unpredictable, impulsive, needing redirection. I will be increasing Risperdal to 1.5 mg twice a day to help improve her agitated, intrusive after control behavior. No side effects with the medication, no sedation, no nausea, no extrapyramidal symptoms. We will continue outpatient group therapy, milieu therapy, adjust medication as needed. JOB# [id number]
--- NOTE | 2019-10-03 13:41 | Internal Medicine Prog Note ---
Internal Medicine Subjective - Subjective Service Date: 10/03/19 Patient is:: asleep, verbal, agitated, confused Patient Complaints of:: other (Hx of Dementia. Patient currently with a sitter at bedside.) Per staff patient has:: no adverse event, no episodes of fall Internal Medicine Objective - Results Recent Labs: Laboratory Last Values POC Glucose 314 MG/DL (70 - 105) H 10/03/19 11:53 - Physical Exam Vitals and I&O: Vital Signs Temp 97.9 F 10/03/19 06:37 Pulse 60 10/03/19 06:37 Resp 20 10/03/19 08:00 BP 107/54 10/03/19 06:37 Pulse Ox 98 10/03/19 06:37 Intake & Output 10/02/19 10/03/19 10/03/19 18:59 06:59 18:59 Intake Total 1100 120 Balance 1100 120 Intake: Oral 1100 120 Other: # Voids 2 3 # Bowel Movements 0 0 Active Medications: Current Medications Acetaminophen (Tylenol) 650 mg PO Q4HR PRN PRN Reason: Pain (Mild) 1-3 Stop: 11/17/19 02:51 Acetaminophen (Tylenol) 650 mg PO Q4H PRN PRN Reason: Temperature Above 100.4 Stop: 11/17/19 02:51 Cholecalciferol (Vitamin D3) 1,000 iu PO DAILY [facility] Stop: 11/17/19 08:59 Last Admin: 10/03/19 09:16 Dose: 1,000 iu Docusate Sodium (Colace) 100 mg PO BID [facility] Stop: 11/17/19 08:59 Last Admin: 10/03/19 09:16 Dose: 100 mg Donepezil HCl (Aricept) 5 mg PO HS [facility] Stop: 11/17/19 20:59 Last Admin: 10/02/19 21:06 Dose: 5 mg Hydralazine HCl (Apresoline) 75 mg PO TID [facility] Stop: 11/17/19 08:59 Last Admin: 10/03/19 09:17 Dose: Not Given Insulin Glargine (Lantus Insulin) 20 units SUBQ HS [facility] Stop: 11/17/19 20:59 Last Admin: 10/02/19 21:09 Dose: 20 units Insulin Glargine (Lantus Insulin) 10 units SUBQ DAILY [facility] Stop: 12/02/19 08:59 Last Admin: 10/03/19 09:15 Dose: 10 units Insulin Human Lispro (Humalog Insulin Sliding Scale) 0 units SUBQ ACHS [facility]; Protocol Stop: 11/17/19 07:29 Last Admin: 10/03/19 11:59 Dose: 8 units Lorazepam (Ativan) 0.5 mg PO Q6H PRN; Protocol PRN Reason: Anxiety Stop: 11/17/19 06:43 Last Admin: 10/02/19 21:41 Dose: 0.5 mg Memantine (Namenda) 10 mg PO BID [facility] Stop: 11/25/19 16:59 Last Admin: 10/03/19 09:16 Dose: 10 mg Metformin HCl (Glucophage) 1,000 mg PO BID [facility] Stop: 11/17/19 08:59 Last Admin: 10/03/19 09:16 Dose: 1,000 mg Risperidone 1 mg/ Risperidone (0.5 mg) 1.5 mg PO BID [facility] Stop: 12/02/19 16:59 Simvastatin (Zocor) 40 mg PO HS [facility]; Protocol Stop: 11/17/19 20:59 Last Admin: 10/02/19 21:06 Dose: 40 mg Valproate Sodium (Depakene) 250 mg PO TID [facility]; Protocol Stop: 11/27/19 13:59 Last Admin: 10/03/19 09:16 Dose: 250 mg General: weak, demented, NAD HEENT: NC/AT, PERRLA Neck: Supple, No JVD Lungs: CTAB Cardiovascular: RRR Abdomen: soft, non-tender, non-distended Extremities: clear Neurological: disorganized, unable to follow command Internal Medicine Assmt/Plan - Assessment Assessment: Acute Psychosis. History of Diabetes. History of Dementia. - Plan Plan: Monitor vitals and Labs. Continue present meds as directed Accu-check daily, continue DM meds Monitor Diet/Nutritional Support Psych management as per Psych. Fall precaution Safety precaution Supportive Care Will Monitor patient and continue present care management. Nutritional Asmnt/Malnutr-PDOC - Dietary Evaluation Malnutrition Findings (Please click <Entered> for more info): Nutritional Asmnt/Malnutrition Start: 09/22/19 11: 11 Text: Status: Complete Freq: Protocol: Document 09/22/19 11:15 MMAXEL (Rec: 09/22/19 11:37 JONHNIEGURMEET CARRENON- FNS1) Nutritional Asmnt/Malnutrition Patient General Information Nutritional Screening Moderate Risk Diagnosis Psychosis Pertinent Medical Hx/Surgical Hx Paranoid Schizophrenia, Dysphagia Oropharyngeal Phase, Anxiety Disorder, Type 2 Diabetes Mellitus Without Unspecified Complications, Cardiomegaly, Essential ( Primary) Hypertension, Cardiac Pacemaker, Hyperlipidemia, Dementia, Psychosis, Major Depressive Disorder, Peripheral Vascular Disease, Contracture of Muscle Right Hand Subjective Information PO intake ~50% of meals on average. Tolerating current diet order. Current Diet Order/ Nutrition Support mechanical soft, no concentrated sweets, 60 gm CCHO, no added sodium Patient / S.O Not Indicated Pertinent Medications vitamin D, colace, lantus, humalog, metformin Pertinent Labs Glucose 52-309 Nutritional Hx/Data Height 5 ft 4 in Height (Calculated Centimeters) 162.6 Current Weight (lbs) 126 lb Weight (Calculated Kilograms) 57.2 Weight (Calculated Grams) 46832.6 [place] Body Weight 120 % [place] Body Weight 105 Body Mass Index (BMI) 21.6 Recent Weight Change No Weight Status Approriate GI Symptoms GI Symptoms None Last BM 09/21 x 1 Difficult in: None Food Allergies No Cultural/Ethnic/Rastafari Belief none indicated Usual diet at home unknown Skin Integrity/Comment: Carlos 20, multiple scratch ravindra to upper back both hands dorsal aspect Current %PO Poor (25-49%) Estimated Nutritional Goals BEE in Kcals: Using Current wt Calories/Kcals/Kg 57.2kg CBW 25-30 kcal/kg Kcals Calculated ~4035-6693 kcal/day Protein: Using Current wt Protein g/k.8-1 gm/kg Protein Calculated ~45-55 gm/day Fluid: ml ~9467-6524 ml/day (1 ml/kcal) Nutritional Problem 2. Problem Problem Altered nutrition related lab values related ot Etiology hypo and hyperglycemia aeb Signs/Symptoms: Glucose 52-309 1. Problem Problem Inadequate oral intake related to Etiology possible poor appetite aeb Signs/Symptoms: PO intake 0-100% with average intake ~50%. Intervention/Recommendation Comments 1. Continue current diet as tolerated by patient. 2. Encourage oral intake and provide assistance with meals. 3. MD to continue to avoid insulin regimen for optimal glycemic control. Expected Outcomes/Goals Expected Outcomes/Goals Adequate nutrition to meet >75 % estimated needs, improved labs, skin remains intact, weight maintenance or trend toward ideal body weight. F/U MR 3/-5
[2019-10-04] MEDS: INSULIN LISPRO SLIDING SCALE 100 UNITS/ML UNIT SUBQ SCH ×4 (06:50→21:16)
[2019-10-04] MEDS: Insulin Glargine 100 units/ml 10ml Vial SUBQ SCH ×2 (09:00→21:15)
--- NOTE | 2019-10-04 11:55 | Progress Notes ---
DATE: 10/04/2019 Case was discussed with staff of the patient, reviewed records. The patient has been pacing the hallway. The staff report that she is still taking other people's meals, but she is not disrobing I will be increasing her Risperdal further to 2 mg twice a day. No side effects with the medication, no sedation, no nausea, no extrapyramidal symptoms. Continues to be demented, confused, unable to make safe plan for self-care, easily agitated, hard to redirect and also she may be having extrapyramidal symptoms. I will be adding Benadryl to her medication rather than Cogentin and that would make her dementia worse. We will continue outpatient group therapy, milieu therapy, adjust medication as needed. JOB# [id number] MTDD
[2019-10-05] MEDS: INSULIN LISPRO SLIDING SCALE 100 UNITS/ML UNIT SUBQ SCH ×3 (07:04→16:15)
[2019-10-05] MEDS: Insulin Glargine 100 units/ml 10ml Vial SUBQ SCH (08:32)
--- NOTE | 2019-10-05 13:19 | Discharge Summary ---
DATE OF DISCHARGE: 09/30/2019 IDENTIFYING INFORMATION: The patient is a 63-year-old female. CHIEF COMPLAINT: Came from [facility] because of disorganized behavior, hard to redirect, easily agitated, responding well to redirection. HISTORY OF PRESENT ILLNESS: The patient was kept walking, would not answer my question and engage in any meaningful conversation. She believes she is 23, single, never . Unable to answer questions appropriately. She is demented, confused. The patient was on Aricept 5 mg at bedtime. She is diabetic, has multiple prior admissions to psychiatric facility was at [facility]. COURSE IN THE HOSPITAL: The patient was started back on medication. The patient was started on Depakote, valproic acid, increased to 250 three times a day. Also, later added Risperdal increased the dose 2 mg twice a day. The patient also was continued with Namenda 10 mg twice a day, metformin 1000 mg twice a day as well as insulin, hydralazine, Aricept was added 5 mg at bedtime. The patient also was on diphenhydramine. The patient progressively got better. She was no longer disrobing, but she tended to pace on the unit at times; however, she was better. Sleeping well, eating well and felt she could be discharged to a lesser level of care. FINAL DIAGNOSES: Dementia with behavior disturbance, psychosis, NOS. MEDICAL DIAGNOSIS: Deferred to the medical doctor. The patient will follow up with the psychiatrist, primary care physician and she will go back to [facility]. EXPECTED OUTCOME: Stable if the patient complies with the above. JOB# [id number] SINDY
--- NOTE | 2019-10-05 14:12 | Internal Medicine Prog Note ---
Internal Medicine Subjective - Subjective Service Date: 10/05/19 Patient is:: asleep, verbal, agitated, confused Patient Complaints of:: other (Hx of Dementia. Patient currently with a sitter at bedside.) Per staff patient has:: no adverse event, no episodes of fall Internal Medicine Objective - Results Recent Labs: Laboratory Last Values POC Glucose 74 MG/DL (70 - 105) 10/05/19 12:17 - Physical Exam Vitals and I&O: Vital Signs Temp 97.6 F 10/05/19 07:03 Pulse 66 10/05/19 07:03 Resp 18 10/05/19 08:00 BP 130/66 10/05/19 07:03 Pulse Ox 95 10/05/19 07:03 Intake & Output 10/04/19 10/05/19 10/05/19 18:59 06:59 18:59 Intake Total 120 120 120 Balance 120 120 120 Intake: Oral 120 120 120 Other: # Voids 3 2 2 # Bowel Movements 1 1 2 Active Medications: Current Medications Acetaminophen (Tylenol) 650 mg PO Q4HR PRN PRN Reason: Pain (Mild) 1-3 Stop: 11/17/19 02:51 Acetaminophen (Tylenol) 650 mg PO Q4H PRN PRN Reason: Temperature Above 100.4 Stop: 11/17/19 02:51 Cholecalciferol (Vitamin D3) 1,000 iu PO DAILY [facility] Stop: 11/17/19 08:59 Last Admin: 10/05/19 08:32 Dose: 1,000 iu Diphenhydramine HCl (Benadryl) 25 mg PO TID PRN PRN Reason: Itching Stop: 12/03/19 10:28 Docusate Sodium (Colace) 100 mg PO BID [facility] Stop: 11/17/19 08:59 Last Admin: 10/05/19 08:31 Dose: 100 mg Donepezil HCl (Aricept) 5 mg PO HS [facility] Stop: 11/17/19 20:59 Last Admin: 10/04/19 20:39 Dose: 5 mg Hydralazine HCl (Apresoline) 75 mg PO TID [facility] Stop: 11/17/19 08:59 Last Admin: 10/04/19 20:40 Dose: 75 mg Insulin Glargine (Lantus Insulin) 20 units SUBQ HS [facility] Stop: 11/17/19 20:59 Last Admin: 10/04/19 21:15 Dose: 20 units Insulin Glargine (Lantus Insulin) 10 units SUBQ DAILY [facility] Stop: 12/02/19 08:59 Last Admin: 10/05/19 08:32 Dose: 10 units Insulin Human Lispro (Humalog Insulin Sliding Scale) 0 units SUBQ ACHS [facility]; Protocol Stop: 11/17/19 07:29 Last Admin: 10/05/19 12:15 Dose: Not Given Lorazepam (Ativan) 0.5 mg PO Q6H PRN; Protocol PRN Reason: Anxiety Stop: 11/17/19 06:43 Last Admin: 10/04/19 20:39 Dose: 0.5 mg Memantine (Namenda) 10 mg PO BID [facility] Stop: 11/25/19 16:59 Last Admin: 10/05/19 08:32 Dose: 10 mg Metformin HCl (Glucophage) 1,000 mg PO BID [facility] Stop: 11/17/19 08:59 Last Admin: 10/04/19 17:55 Dose: 1,000 mg Risperidone (Risperdal) 2 mg PO BID [facility] Stop: 12/03/19 16:59 Last Admin: 10/05/19 08:31 Dose: 2 mg Simvastatin (Zocor) 40 mg PO HS [facility]; Protocol Stop: 11/17/19 20:59 Last Admin: 10/04/19 20:40 Dose: 40 mg Valproate Sodium (Depakene) 250 mg PO TID [facility]; Protocol Stop: 11/27/19 13:59 Last Admin: 10/05/19 08:31 Dose: 250 mg General: weak, demented, NAD HEENT: NC/AT, PERRLA Neck: Supple, No JVD Lungs: CTAB Cardiovascular: RRR Abdomen: soft, non-tender, non-distended Extremities: clear Neurological: disorganized, unable to follow command Internal Medicine Assmt/Plan - Assessment Assessment: Acute Psychosis. History of Diabetes. History of Dementia. - Plan Plan: Monitor vitals and Labs. Continue present meds as directed Accu-check daily, continue DM meds Monitor Diet/Nutritional Support Psych management as per Psych. Fall precaution Safety precaution Supportive Care Will Monitor patient and continue present care management. Nutritional Asmnt/Malnutr-PDOC - Dietary Evaluation Malnutrition Findings (Please click <Entered> for more info): Nutritional Asmnt/Malnutrition Start: 09/22/19 11: 11 Text: Status: Complete Freq: Protocol: Document 09/22/19 11:15 MILAD (Rec: 09/22/19 11:37 MILAD YESICA- FNS1) Nutritional Asmnt/Malnutrition Patient General Information Nutritional Screening Moderate Risk Diagnosis Psychosis Pertinent Medical Hx/Surgical Hx Paranoid Schizophrenia, Dysphagia Oropharyngeal Phase, Anxiety Disorder, Type 2 Diabetes Mellitus Without Unspecified Complications, Cardiomegaly, Essential ( Primary) Hypertension, Cardiac Pacemaker, Hyperlipidemia, Dementia, Psychosis, Major Depressive Disorder, Peripheral Vascular Disease, Contracture of Muscle Right Hand Subjective Information PO intake ~50% of meals on average. Tolerating current diet order. Current Diet Order/ Nutrition Support mechanical soft, no concentrated sweets, 60 gm CCHO, no added sodium Patient / S.O Not Indicated Pertinent Medications vitamin D, colace, lantus, humalog, metformin Pertinent Labs Glucose 52-309 Nutritional Hx/Data Height 5 ft 4 in Height (Calculated Centimeters) 162.6 Current Weight (lbs) 126 lb Weight (Calculated Kilograms) 57.2 Weight (Calculated Grams) 54287.6 [place] Body Weight 120 % [place] Body Weight 105 Body Mass Index (BMI) 21.6 Recent Weight Change No Weight Status Approriate GI Symptoms GI Symptoms None Last BM 09/21 x 1 Difficult in: None Food Allergies No Cultural/Ethnic/Taoism Belief none indicated Usual diet at home unknown Skin Integrity/Comment: Carlos 20, multiple scratch ravindra to upper back both hands dorsal aspect Current %PO Poor (25-49%) Estimated Nutritional Goals BEE in Kcals: Using Current wt Calories/Kcals/Kg 57.2kg CBW 25-30 kcal/kg Kcals Calculated ~8309-8254 kcal/day Protein: Using Current wt Protein g/k.8-1 gm/kg Protein Calculated ~45-55 gm/day Fluid: ml ~5478-4465 ml/day (1 ml/kcal) Nutritional Problem 2. Problem Problem Altered nutrition related lab values related ot Etiology hypo and hyperglycemia aeb Signs/Symptoms: Glucose 52-309 1. Problem Problem Inadequate oral intake related to Etiology possible poor appetite aeb Signs/Symptoms: PO intake 0-100% with average intake ~50%. Intervention/Recommendation Comments 1. Continue current diet as tolerated by patient. 2. Encourage oral intake and provide assistance with meals. 3. MD to continue to avoid insulin regimen for optimal glycemic control. Expected Outcomes/Goals Expected Outcomes/Goals Adequate nutrition to meet >75 % estimated needs, improved labs, skin remains intact, weight maintenance or trend toward ideal body weight. F/U MR 3/-5
== END 2019-10-05 16:20 | DRG 884 ==
LOC: GERO 09-18 00:45
PROVIDERS: ADMIT Psychiatry & Neurology Psychiatry; ATTEND Psychiatry & Neurology Psychiatry
DX: F03.91 Unspecified dementia, unspecified severity, with behavioral disturbance (principal); F23 Brief psychotic disorder; I10 Essential (primary) hypertension; E78.5 Hyperlipidemia, unspecified; E11.9 Type 2 diabetes mellitus without complications; Z79.899 Other long term (current) drug therapy; Z83.3 Family history of diabetes mellitus; Z79.4 Long term (current) use of insulin
CPT/HCPCS: 82948-90; 83036-90; J1200; J1630; J1815; J2060